=== PATIENT | female | born 1965 | race African-American/Black ===

== ENCOUNTER 2019-12-20 17:47 | Inpatient (IN) | payer MEDICARE, MEDICAID ==
[~2019-12-20] VITALS: Ht 162.6 cm; Wt 77.1 kg
[~2019-12-20 17:47] MED LIST: AMLODIPINE BESY10 MG ORAL; BENAZEPRIL HCL20 MG ORAL; COLACE100 MG ORAL; LATUDA80 MG PO
--- NOTE | 2019-12-20 17:50 | NUR ---
ED Nurse Note: Patient BIBA from [facility] for shortness of breath, fever of 101.3, cough. Patient AxO x 1, on non rebreather at 15 L, O2 sat 100%. Patient's breathing even and unlabored, no s/s of respiratory distress. Patient on rn cardiac, 22 g IV started in right AC. Blood, urine, swabs, covid swab, blood cultures sent to lab.
[2019-12-20 18:20] VITALS: BP 88/56
--- NOTE | 2019-12-20 18:58 | Diagnostic Imaging Report ---
EXAM: XR Chest, 1 View CLINICAL HISTORY: SOB TECHNIQUE: Frontal view of the chest. COMPARISON: None FINDINGS: Lungs: There are low lung volumes. There are patchy bilateral infiltrates. Pleural space: There are no pleural effusions or pneumothoraces. Heart: Unremarkable. No cardiomegaly. Mediastinum: Unremarkable. Bones/joints: Unremarkable. IMPRESSION: Low lung volumes. Patchy infiltrates, worrisome for atypical pneumonia.
[2019-12-20 19:01] LABS: APPEARANCE,URINE SLIGHTLY CLOUDY; BILIRUBIN, URINE NEGATIVE (NEGATIVE); GLUCOSE, URINE (UA) NEGATIVE (NEGATIVE); KETONES,URINE 2+ (NEGATIVE); LEUKOCYTE ESTERASE ,URINE 1+ (NEGATIVE); NITRITE,URINE NEGATIVE (NEGATIVE); PH,URINE 5 (4.5-8.0); PROTEIN,URINE 2+ (NEGATIVE); UROBILINOGEN,URINE 1 MG/DL (0.0-1.0)
[2019-12-20 19:05] VITALS: BP 99/63
[2019-12-20 19:05] LABS: COLOR,URINE YELLOW
--- NOTE | 2019-12-20 19:05 | NUR ---
ED Nurse Note: ermd notified of pt tachy hr 123.
--- NOTE | 2019-12-20 19:10 | NUR ---
HAND-OFF: Report given to Saman Jones RN.
[2019-12-20 19:12] LABS: HEMATOCRIT 30.8 % (37.0-47.0); HEMOGLOBIN 9.1 G/DL (12.0-16.0); MEAN CORPUSCULAR VOLUME 112 FL (80-99); PLATELET COUNT 143 K/UL (150-450); RED BLOOD COUNT 2.76 M/UL (4.20-5.40); RED CELL DISTRIBUTION WIDTH 15.3 % (11.6-14.8); WHITE BLOOD COUNT 9.9 K/UL (4.8-10.8)
[2019-12-20] MEDS ORDERED: cefTRIAXone 1 GM in NS 55 ML IVPB ONE (19:15)
--- NOTE | 2019-12-20 19:15 | NUR ---
ED Nurse Note: RECEIVED REPORT FROM KATTY CHRIS. PT ON MONITOR, VSS, NAD.
[2019-12-20 19:16] LABS: BASOPHILS % (AUTO) 1.2 % (0.0-2.0); LYMPHOCYTES % (AUTO) 15.1 % (20.0-45.0); MONOCYTES % (AUTO) 7.3 % (1.0-10.0); NEUTROPHILS % (AUTO) 76.4 % (45.0-75.0)
--- NOTE | 2019-12-20 19:36 | Emergency Room Report ---
History of Present Illness General Chief Complaint: Dyspnea/Respdistress Source: Patient Present Illness HPI Patient is a 54-year-old female sent in from nursing facility after increased fever and difficulty with breathing. Patient reportedly had negative coronavirus testing yesterday. She was noted to have increased shortness of breath and decreased oxygen saturation. Patient was sent to the hospital from [facility]. She was noted to have fever up to 101 degrees as well as decreased oxygen saturation was started on nonrebreather by paramedics. Allergies: Coded Allergies: IBUPROFEN (Verified Allergy, Unknown, 12/20/19) COVID-19 Screening Contact w/high risk pt: No Recent Travel to affected area: No Experienced COVID-19 symptoms?: Yes COVID-19 symptoms experienced: Fever (T>100.4F or >38C), Shortness of Breath, Cough COVID-19 Testing performed MANAGER MARKET RESEARCH: Yes - 12/19/19 COVID-19 Screening: Negative COVID-19 COVID-19 Testing Source: AUTO BENCH MECHANIC Patient History Past Medical History: see triage record Last Menstrual Period: na Reviewed Nursing Documentation: PMH: Agreed; PSxH: Agreed Nursing Documentation-PMH Past Medical History: No History, Except For Hx Hypertension: Yes Hx Asthma: Yes Review of Systems All Other Systems: limited - Limited by poor historian Physical Exam Vital Signs Date Time Temp Pulse Resp B/P (MAP) Pulse Ox O2 Delivery O2 Flow Rate FiO2 12/20/19 17:41 101.3 102 16 188/117 (140) 98 Non-Rebreather 15.0 General Appearance: alert, Chronically Ill ENT: hearing grossly normal Neck: limited range of motion Respiratory: lungs clear Cardiovascular #1: tachycardia, edema Gastrointestinal: hernia, other - Nontender abdomen Musculoskeletal: other - Right lower extremity externally rotated Neurologic: alert, oriented x3, motor weakness - Diffuse Psychiatric: normal inspection Skin: no rash Procedures Critical Care Time Critical Care Time Patient had a critical medical condition which untreated could potentially result in life or limb threatening injury. Total critical care time excluding procedures approximately 45 minutes. Medical Decision Making Diagnostic Impression: Primary Impression: Acute febrile illness Additional Impressions: Suspected 2019-nCoV infection Atypical pneumonia Hypernatremia Hypoglycemia ER Course Patient presented for fever and shortness of breath. Differential diagnosis include was not limited to pneumonia, coronavirus infection, gastroenteritis, urinary tract infection among others. Because of complexity of patient's case laboratory tests and imaging studies were ordered. Patient was noted to be chronically bedridden. She appears to be diffusely weak with fever. Chest x- ray read by radiology showed low lung volumes with patchy infiltrates worrisome for atypical pneumonia. Coronavirus testing was repeated blood cultures were obtained. Patient was given IV antibiotics due to acute febrile illness and she started on IV fluids. Laboratory testing showed some anemia as well as lymphopenia. Patient will be admitted due to pneumonia presumably from coronavirus. Arterial blood gas showed adequate pH and oxygenation. Patient was initially on nonrebreather and patient subsequently had a decrease in oxygen to simple mask. Patient was noted to have some hypoglycemia and was given D50 and started on IV dextrose. Chest x-ray findings were concerning for possible coronavirus and patient was started on IV Decadron which would also help with hypoglycemic episode. She was noted to be hypoalbuminemic and was given IV albumin. Patient empirically given IV antibiotics. Patient was noted to have normal blood pressure and normal lactic acid level. Patient's primary care physician Dr. Cummings was contacted and requested the patient be admitted to Dr. Potter. Dr. Ricky Potter was contacted for inpatient management and agreed to admit the patient to SDU. Labs Test 12/20/19 18:16 12/20/19 18:40 12/20/19 19:00 Arterial Blood pH 7.399 (7.350-7.450) Arterial Blood Partial Pressure CO2 51.7 mmHg (35.0-45.0) Arterial Blood Partial Pressure O2 205.7 mmHg (75.0-100.0) Arterial Blood HCO3 31.2 mmol/L (22.0-26.0) Arterial Blood Oxygen Saturation 98.8 % (95-100) Arterial Blood Base Excess 5.7 (-2-2) Darío Test Positive Urine Color Yellow Urine Appearance Slightly cloudy Urine pH 5 (4.5-8.0) Urine Specific Keller 1.025 (1.005-1.035) Urine Protein 2+ (NEGATIVE) Urine Glucose (UA) Negative (NEGATIVE) Urine Ketones 2+ (NEGATIVE) Urine Blood Negative (NEGATIVE) Urine Nitrite Negative (NEGATIVE) Urine Bilirubin Negative (NEGATIVE) Urine Urobilinogen 1 MG/DL (0.0-1.0) Urine Leukocyte Esterase 1+ (NEGATIVE) Urine RBC 0-2 /HPF (0 - 2) Urine WBC 2-4 /HPF (0 - 2) Urine Squamous Epithelial Cells Few /LPF (NONE/OCC) Urine Bacteria Few /HPF (NONE) Urine Mucus Many /LPF (NONE/OCC) White Blood Count 9.9 K/UL (4.8-10.8) Red Blood Count 2.76 M/UL (4.20-5.40) Hemoglobin 9.1 G/DL (12.0-16.0) Hematocrit 30.8 % (37.0-47.0) Mean Corpuscular Volume 112 FL (80-99) Mean Corpuscular Hemoglobin 33.2 PG (27.0-31.0) Mean Corpuscular Hemoglobin Concent 29.7 G/DL (32.0-36.0) Red Cell Distribution Width 15.3 % (11.6-14.8) Platelet Count 143 K/UL (150-450) Mean Platelet Volume 5.4 FL (6.5-10.1) Neutrophils (%) (Auto) 76.4 % (45.0-75.0) Lymphocytes (%) (Auto) 15.1 % (20.0-45.0) Monocytes (%) (Auto) 7.3 % (1.0-10.0) Eosinophils (%) (Auto) 0.0 % (0.0-3.0) Basophils (%) (Auto) 1.2 % (0.0-2.0) Lactic Acid Level 1.60 mmol/L (0.4-2.0) Troponin I 0.017 ng/mL (0.000-0.056) EKG Diagnostic Results Rate: tachycardiac Rhythm: NSR ST Segments: no acute changes Last Vital Signs Date Time Temp Pulse Resp B/P (MAP) Pulse Ox O2 Delivery O2 Flow Rate FiO2 12/20/19 18:20 101.3 105 16 88/56 100 Non-Rebreather 15.0 Status: unchanged Disposition: ADMITTED INPATIENT Condition: Serious Referrals: NON PHYSICIAN (PCP) Luis Fernando Zarate MD Dec 20, 2019 19:36
[2019-12-20 19:42] LABS: ALANINE AMINOTRANSFERASE 22 U/L (12-78); ALBUMIN 1.1 G/DL (3.4-5.0); ALBUMIN/GLOBULIN RATIO 0.2 (1.0-2.7); ALKALINE PHOSPHATASE 129 U/L (46-116); ANION GAP 4 mmol/L (5-15); ASPARTATE AMINO TRANSFERASE 46 U/L (15-37); BILIRUBIN,TOTAL 0.3 MG/DL (0.2-1.0); BLOOD UREA NITROGEN 22 mg/dL (7-18); CALCIUM 7.1 MG/DL (8.5-10.1); CARBON DIOXIDE 35 MMOL/L (21-32); CHLORIDE 130 MMOL/L (98-107); CKMB < 0.5 NG/ML (0.0-3.6); CREATINE KINASE 54 U/L (26-308); CREATININE 1.9 MG/DL (0.55-1.30); POTASSIUM 4.3 MMOL/L (3.5-5.1)
[2019-12-20 19:46] LABS: SODIUM 169 MMOL/L (136-145)
[2019-12-20] MEDS ORDERED: D5 1/2NS 1,000 ML IV SCH (20:00)
--- NOTE | 2019-12-20 20:10 | NUR ---
ED Nurse Note: PT BS 28 AT BEDSIDE. ERMD NOTIFIED. WILL CARRY OUT ORDER.
--- NOTE | 2019-12-20 20:20 | NUR ---
ED Nurse Note: PT BS 78. ERMD AWARE.
--- NOTE | 2019-12-20 20:22 | NUR ---
Nurse Note: Per ER MD, D50 ordered and pulled. D50 was dropped and another D50 overroad in the pxysis. Vickie pharmist informed.
[2019-12-20] MEDS ORDERED: dexAMETHasone 10mg/ml Inj IV ONE (20:30)
--- NOTE | 2019-12-20 21:35 | NUR ---
ED Nurse Note: REPORT GIVEN TO REGLA CHRIS
[2019-12-20 21:40] VITALS: BP 101/67
[2019-12-20] MEDS ORDERED: BENZTROPINE MESY1 MG ORAL (21:40)
[2019-12-20] MEDS ORDERED: HALOPERIDOL0.5 MG ORAL (21:40)
[2019-12-20] MEDS ORDERED: FERROUS SULFAT325 MG ORAL (21:40)
[2019-12-20] MEDS ORDERED: DEPAKOTE ER500 MG ORAL (21:40)
--- NOTE | 2019-12-20 21:40 | NUR ---
ED Nurse Note: PT SATTING AT 99% ON 4L NC. CARYN LIGHT. CHARANJIT AWARE.
--- NOTE | 2019-12-20 21:50 | NUR ---
TRANSFER TO FLOOR: Patient transferred to [facility] via [facility] in stable condition via transport 19 protocol as ordered, per dr. Potter . Report given to REGLA CHRIS.
--- NOTE | 2019-12-20 22:00 | NUR ---
NURSE NOTES: Received report from DOT [place]ña ED. Pt alert oriented x 1-2,afebrile and no respiratory distress noted. LN introduced self and pt able to respond back with name, unable to state where she's at right now but able to follow commands without any discomforts or problem. On NC at 4lpm continuously, tolerating well. With Right AC 18g IV line patent, flushed and asymptomatic. body assessment done and skin changes noted and documented per protocol. Needs were attended. HOB elevated. Call light within reach. Bed rails are up and wheels are locked. Continue plan of care for the patient
--- NOTE | 2019-12-20 23:00 | NUR ---
NURSE NOTES: 2229: left a message to Leighton ( gristmill operator) of Dr Potter's office to call us back for admission orders of patient. Awaiting for response 2299: Place a call to Dr Potter's office to follow up and left a message to Leighton ( gristmill operator) of Dr Potter's office to call us back in SDU for admission orders of patient. Awaiting for response
[2019-12-21] VITALS: BP 94/66
--- NOTE | 2019-12-21 00:39 | NUR ---
NURSE NOTES: 0028:Placed a call to Dr Potter's office to FF up admission orders. No response yet. 0030: Spoke to Nursing Ict Educator and made aware that Dr Potter hasn't responded yet. Nursing grinding supervisor advised to call ER Charge nurse and ask for bridge orders from ER physician 0035: Called ER. Awaiting for a callback
[2019-12-21] MEDS ORDERED: D5 1/2NS w/KCl 20mEq 1,000 ML IV SCH (00:45)
[2019-12-21 04:00] VITALS: BP 108/58
--- NOTE | 2019-12-21 06:00 | NUR ---
NURSE NOTES: Pt verbalized " don't touch me" provided personal space to patient while maintaining safety environment
--- NOTE | 2019-12-21 06:00 | NUR ---
NURSE NOTES: Patient was assisted to wash face and do oral hygiene per request. Pt verbalized doesn't want to lay down in bed and wants to sit on the side of the bed. Pt is 1 person assist for ambulation. Noted unsteady gait when trying to use the sink. Explained to patient the risk of fall and out of balance tendencies if left alone. Also explained that breakfast will be served and will be assisted even she's on the bed. Patient refused x 3. Patient pulled out property assessment monitor leads and she refused to put it back on even after explaining the benefits and risks. Patient was also observed trying to pull IV line. Explained to patient the risk of bleeding and infection. Patient became agitated and tried to hit staffs, Provided personal space to patient while observing and doing safety measures. LN and GEOLOGY PROFESSOR tried to calm her down and was asked if there are other things we can do for her. GEOLOGY PROFESSOR stayed with patient to provide safety and relief of agitation. MD was made aware of the situation and behavior of the patient. Awaiting response.
[2019-12-21 06:26] LABS: ALANINE AMINOTRANSFERASE 20 U/L (12-78); ALBUMIN/GLOBULIN RATIO 0.2 (1.0-2.7); ALKALINE PHOSPHATASE 115 U/L (46-116); ANION GAP 4 mmol/L (5-15); ASPARTATE AMINO TRANSFERASE 45 U/L (15-37); BILIRUBIN,TOTAL 0.2 MG/DL (0.2-1.0); BLOOD UREA NITROGEN 22 mg/dL (7-18); CALCIUM 6.9 MG/DL (8.5-10.1); CARBON DIOXIDE 33 MMOL/L (21-32); CHLORIDE 130 MMOL/L (98-107); CHOLESTEROL < 50 MG/DL (< 200); CREATININE 1.9 MG/DL (0.55-1.30); FERRITIN 511 NG/ML (8-388); GAMMA GLUTAMYL TRANSPEPTIDASE 143 U/L (5-85); HDL CHOLESTEROL 13 MG/DL (40-60); POTASSIUM 4.3 MMOL/L (3.5-5.1); TRIGLYCERIDES 78 MG/DL (30-150)
[2019-12-21 06:37] LABS: SODIUM 167 MMOL/L (136-145)
[2019-12-21 06:56] LABS: % IRON SATURATION 64 % (15-50); IRON 23 ug/dL (50-175); TOTAL IRON BINDING CAPACITY 36 ug/dL (250-450)
--- NOTE | 2019-12-21 07:10 | NUR ---
HAND-OFF: Report given to Jeffery Denis RN. Patient stable sitting on the bed having breakfast without any discomforts.
[2019-12-21] MEDS ORDERED: LORazepam 1mg tab ORAL PRN (07:15)
--- NOTE | 2019-12-21 07:30 | NUR ---
NURSE NOTES: Received report from DOT [place]. Patient noted on wheelchair, refusing to go back to bed at this. Per night nurse patient walked out of room and refused to go back to room, attempted to punch nurse. Patient is noted PUI, explained to patient importance of strict room isolation, patient noted alert and oriented x 2 with moments of confusion and forgetfulness. Patient unable to grasp importance of isolation at this time but agreed to go back to room and lay in bed. Informed patient to use call light if assistance needed, patient nodded head. Noted. Per night nurse, patient also refuses to put back heart monitor on. Patient educated on importance of heart monitor on unit, patient continued to refuse, respected patient rights. Kept heart monitor in room in event patient changes mind. Informed panel monitor of refusal, charge nurse aware of patient refusal for heart monitor. Noted. Patient noted with leaking right AC peripheral IV, patient refuses to have IV removed at this time. Noted. Placed bed alarm on med. Call light is kept within easy reach. Continue to monitor patient.
[2019-12-21 07:57] LABS: HEMATOCRIT 31.7 % (37.0-47.0); HEMOGLOBIN 9.4 G/DL (12.0-16.0); MEAN CORPUSCULAR VOLUME 113 FL (80-99); PLATELET COUNT 146 K/UL (150-450); RED BLOOD COUNT 2.81 M/UL (4.20-5.40); RED CELL DISTRIBUTION WIDTH 14.4 % (11.6-14.8); WHITE BLOOD COUNT 9.7 K/UL (4.8-10.8)
[2019-12-21 08:00] VITALS: BP 95/63
[2019-12-21] MEDS: Haloperidol 1mg tab ORAL SCH ×3 (08:04→17:24)
[2019-12-21] MEDS: Benztropine 1mg tab ORAL SCH ×2 (08:17→17:23)
[2019-12-21] MEDS: Depakote ER 500mg tab ORAL SCH (08:18)
[2019-12-21] MEDS: Heparin 5000 units/ml inj SUBQ SCH ×2 (09:00→21:00)
[2019-12-21] MEDS ORDERED: Benazepril 10mg tab ORAL SCH (09:00)
[2019-12-21] MEDS ORDERED: Docusate 100mg cap ORAL SCH (09:00)
--- NOTE | 2019-12-21 09:40 | NUR ---
NURSE NOTES: Dr. Potter at nurse station. Made Dr. Potter aware patient is refusing heart monitor. Dr. Potter acknowledged, no new orders given at this time. Charge nurse made aware. Will continue to monitor patient.
--- NOTE | 2019-12-21 10:05 | NUR ---
NURSE NOTES: Dr. Pichardo at nurse station, reported sodium level of 167, patient refused IV fluids. Acknowledged, spoke with patient, patient rambled. Noted. Informed Dr. Pichardo patient blood pressure this morning was 95/64 HR 105, pt noted with blood pressure medications, no parameters, blood pressure medications held in the morning. Dr. Pichardo acknowledged and informed this nurse they will take care of it. Noted. Will continue to monitor patient.
--- NOTE | 2019-12-21 10:26 | Consultation ---
Consult Note Consult Note I am asked to evaluate the patient at the request of Dr. Ricky Potter for abnormal electrolytes and renal failure. Patient evaluated. Discussed with DOT Gil. Data reviewed. Patient poor historian. ER note: Chief Complaint: Dyspnea/Respdistress Patient is a 54-year-old female sent in from nursing facility after increased fever and difficulty with breathing. Patient reportedly had negative coronavirus testing yesterday. She was noted to have increased shortness of breath and decreased oxygen saturation. Patient was sent to the hospital from . She was noted to have fever up to 101 degrees as well as decreased oxygen saturation was started on nonrebreather by paramedics. 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 - 12/19/19 COVID-19 Screening: Negative COVID-19 COVID-19 Testing Source: AQUATIC ECOLOGIST Past Medical History: No History, Except For Hx Hypertension: Yes Hx Asthma: Yes Vital Signs Date Time Temp Pulse Resp B/P (MAP) Pulse Ox O2 Delivery O2 Flow Rate FiO2 12/20/19 17:41 101.3 102 16 188/117 (140) 98 Non-Rebreather 15.0 General Appearance: alert, Chronically Ill ENT: hearing grossly normal Neck: limited range of motion Respiratory: lungs clear Cardiovascular #1: tachycardia, edema Gastrointestinal: hernia, other - Nontender abdomen Musculoskeletal: other - Right lower extremity externally rotated Neurologic: alert, oriented x3, motor weakness - Diffuse Psychiatric: normal inspection Skin: no rash . Assessment/Plan Renal failure, most likely chronic, with superimposed acute renal failure. Acute febrile illness, suspected COVID-19 infection. Hypernatremia, likely due to free water deficit. Hypoglycemia Severe hypoalbuminemia Atypical pneumonia Anemia History of psych disease Stop blood pressure medication due to low blood pressure PRN IV hydralazine for blood pressure spike D5W IV hydration Protonix p.o. Albumin IV bolus Monitor renal parameters Continue per consultants Saha catheter, urine studies Brian Pichardo MD Dec 21, 2019 10:26
--- NOTE | 2019-12-21 10:35 | NUR ---
NURSE NOTES: Called Dr. Burgos regarding new psyche consult per Dr. Potter. Dr. Burgos acknowledged and informed this nurse they will come in and see patient. No new orders given at this time. Will continue to monitor patient.
--- NOTE | 2019-12-21 11:14 | History and Physical Report ---
DATE OF ADMISSION: 12/20/2019 DATE AND TIME SEEN: 12/21/2019 at 8 a.m. CONSULTANTS: 1. Hector Hobson MD. 2. Penny Montague MD. 3. Brian Pichardo MD. 4. Flip Burgos MD. CHIEF COMPLAINT: Hypoglycemia, bipolar, suspect COVID. BRIEF HISTORY: This is a 54-year-[place], presented with above-mentioned diagnosis, seen in the ER, admitted to step-down unit. Currently, slightly confused in bed, refusing to answer questions, in room, no complaint. REVIEW OF SYSTEMS: Unavailable. PAST MEDICAL HISTORY: Include acute renal failure, weakness, bipolar, IN, hypertension. PAST SURGICAL HISTORY: Unknown. MEDICATIONS: Include ceftriaxone, amlodipine, benztropine, ferrous sulfate, heparin, Haldol, benazepril. ALLERGIES: Ibuprofen. SOCIAL HISTORY: Unable to obtain secondary to the patient's condition. PHYSICAL EXAMINATION: GENERAL: Slightly confused in bed, refusing exam. VITAL SIGNS: Temperature is 97, pulse 106, respirations 20, blood pressure 108/58. GENERAL: Calm, slightly confused. HEENT: Normocephalic and atraumatic. NECK: Trachea midline. CARDIOVASCULAR: No peripheral edema. LUNGS: Slight short of breath on room air. ABDOMEN: No apparent wounds. EXTREMITIES: Show no cyanosis or clubbing. LABORATORY AND DIAGNOSTIC DATA: Labs at this time show hemoglobin and hematocrit 9.4/31, platelets 146,000, otherwise normal. BMP shows sodium 167, chloride 130, BUN and creatinine 22 and 1.9. Albumin 1.0. Urinalysis, 1+ leukocyte esterase. ASSESSMENT: 1. Hypoglycemia. 2. Suspect COVID. 3. UTI. 4. Malnutrition. 5. Bipolar. 6. CAD. 7. Hypernatremia. 8. Acute renal failure. 9. IN. 10. Hypertension. PLAN: O2, pulmonary treatment as needed. Antibiotics per Infectious Disease. Blood pressure and blood sugar control. Dietary followup. Nephrology followup. We will add Hematology. We will continue to follow this patient medically. CBC and BMP in the morning. PT and dietary evaluation. Ricky Potter D.O. DR: ISAIAH JOB#: [id number] CC:
--- NOTE | 2019-12-21 11:34 | NUR ---
CASE MANAGEMENT: INITIAL REVIEW 54 YO F BIBA FROM [facility] CC: DYSPNEA PMHx: HTN . ASTHMA SI:SUSPECTED OF COVID PNA. HERNIA. T 101.3 JR 102 RR 16 B/P 188/117 SATS 98% ON 15L/NRB LABS: NA 169 CL 130 CO2 35 BUN 22 CR 1.9 GLU 50 CA 7.1 AST 46 ALP 129 ABGs PCO2 51.7 PO2 205.7 HCO3 31.2 BE 5.7 IS: NS BOLUS X1 CEFTRIAXONE IV X1 FLAGYL IV X1 PATIENT ADMITTED TO SDU 12/20/2019 @ [id number] DCP: SNF PLAN OF CARE: Albumin IV bolus Monitor renal parameters O2, pulmonary treatment as needed
[2019-12-21 12:00] VITALS: BP 96/58
--- NOTE | 2019-12-21 12:01 | NUR ---
NURSE NOTES: Spoke with patient at bedside. Explained to patient need to insert valadez catheter for intake and output per Dr. Pichardo. Patient refuses valadez catheter insertion. Explained to patient risks and negative outcome of not having valadez catheter inserted, patient continued to refuse, and stated "Don't come close to me." Respected patient rights. Called and informed Dr. Pichardo of patient refusal of valadez catheter insertion and situation and unable to obtain urine sample as well. Dr. Pichardo acknowledged, no new orders given at this time. Charge nurse made aware. Will continue to monitor patient.
[2019-12-21] MEDS: Docusate 100mg cap ORAL SCH ×2 (12:34→17:24)
--- NOTE | 2019-12-21 12:52 | NUR ---
NURSE NOTES: Patient refused use of purwick to obtain urine sample. Noted. Will continue to monitor patient.
--- NOTE | 2019-12-21 13:14 | Consultation ---
DATE OF CONSULTATION: 12/21/2019 PULMONARY CONSULTATION CONSULTING PHYSICIAN: Hector Hobson MD. HISTORY OF PRESENT ILLNESS: This is a 54-year-old female, looking much older than stated age, was admitted from a [facility] after reporting shortness of breath. The patient was hypoxic. She is a resident of [facility]. She was also febrile. The patient is admitted to the hospital. Currently saturating well on nasal cannula 4 L. Her initial x-ray chest has shown bibasilar patchy infiltrates, suspicious for pneumonic process. PAST MEDICAL HISTORY: Notable for renal insufficiency, hypertension, asthma, [facility] resident. HOME MEDICATIONS: Reviewed and reconciled in chart include benztropine, Depakote, Colace, Haldol, hydralazine, Protonix. REVIEW OF SYSTEMS: Unreliable. PHYSICAL EXAMINATION: GENERAL: Reveals an older looking patient. VITAL SIGNS: Blood pressure is 95/60, heart rate 100, respirations are 18, O2 saturation 98% on 4 L of oxygen. CHEST: Decreased breath sounds bilaterally. HEART: Normal heart sounds. ABDOMEN: Soft. EXTREMITIES: There is no edema. LABORATORY DATA: Lab testing shows hemoglobin 9.4, otherwise normal CBC, platelet count is borderline low. Chemistries notable for sodium 167, creatinine 1.9. LDH 311. Troponin negative. Glucose 132. ABG shows pH 7.39, pCO2 51, pO2 200. Urinalysis negative. X-ray chest discussed above. IMPRESSION: 1. Probable COVID-19 pneumonia. 2. Hypernatremia. 3. Psych disorder. 4. longterm resident. DISCUSSION: Admit to the hospital. Agree with current medications and care. The patient has received Decadron x1. We will defer further use to ID. Continue medications. Await COVID-19 testing. We will follow as layout former. Hector Hobson M.D. DR: SAMINA JOB#: [id number] CC:
--- NOTE | 2019-12-21 14:18 | NUR ---
NURSE NOTES: Called and left message with Dr. Burgos, , to follow up regarding Lurasidone 80 mg PO BID. Pharmacy does not carry medication, called to clarify regarding substitution for Lurasidone. Awaiting call back. Will continue to monitor patient.
--- NOTE | 2019-12-21 14:29 | NUR ---
NURSE NOTES: Michele noted as substitution for Lurasidone. Per pharmacist spoke with Dr. Burgos. Noted.
--- NOTE | 2019-12-21 14:58 | NUR ---
NURSE NOTES: Dr. Burgos at nurse station. Dr. Burgos informed this nurse to transfer patient to [facility] psyche facility once medically cleared under Dr. Potter and Dr. Burgos. Contacted and informed Dr. Potter regarding instructions of Dr. Burgos. Dr. Potter acknowledged and ordered case management consult to transfer patient to [facility] psyche facility once medically cleared. Charge nurse made aware. Will continue to monitor patient.
--- NOTE | 2019-12-21 15:00 | NUR ---
NURSE NOTES: Dr. Burgos at nurse station, informed MD that ordered Haldol PO has been held due to low blood pressure, 95/63. Dr. Burgos acknowledged. No new orders at this time. Will continue to monitor patient.
--- NOTE | 2019-12-21 15:00 | NUR ---
NURSE NOTES: Again, explained to patient need for heart monitor to be placed on while on SDU unit. Patient refused x 3. Explained to patient risks and negative outcomes of not having heart monitor on, patient continued to refuse. Respected patient rights. Heart monitor kept in room in case patient changes mind. Charge nurse aware. Will continue to monitor patient.
--- NOTE | 2019-12-21 15:28 | NUR ---
DISCHARGE PLANNING: NOTE PSYCH TRANSFER ORDER NOTED PT REMAINS ON 4L/NC PENDING MEDICAL CLEARANCE CLINICALS FAXED TO [facility] FOR REVIEW CM TO CONTINUE TO MONITOR FOR MEDICAL STABILITY
[2019-12-21 16:00] VITALS: BP 100/50
--- NOTE | 2019-12-21 16:30 | NUR ---
NURSE NOTES: Patient refused Accuchek. Explained to patient risks and possible negative outcomes of not having Accuchek done, patient continued to refuse. Respected patient rights. Will continue to monitor patient.
[2019-12-21] MEDS ORDERED: cefTRIAXone 1 GM in D5W 55 ML IVPB SCH (19:00)
--- NOTE | 2019-12-21 19:00 | NUR ---
NURSE NOTES: Received report from Jeffery Denis RN. Pt asleep in bed, febrile and no respiratory distress noted.On RA saturating at 97-98%. With Right AC 18g and Left hand 24G IV lines patent, flushed and asymptomatic. Needs were attended. HOB elevated. Call light within reach. Bed rails are up and wheels are locked. Continue plan of care for the patient
--- NOTE | 2019-12-21 19:20 | NUR ---
HAND-OFF: Report given to DOT Doug[place].
[2019-12-21 20:00] VITALS: BP 119/64
[2019-12-21] MEDS: Ziprasidone 20mg cap ORAL SCH (21:33)
[2019-12-22] VITALS: BP 108/61
--- NOTE | 2019-12-22 02:30 | NUR ---
NURSE NOTES: Patient asleep in bed, afebrile and has no respiratory distress. Continue to monitor patient
[2019-12-22 04:00] VITALS: BP 133/72
--- NOTE | 2019-12-22 04:30 | NUR ---
NURSE NOTES: Patient refused blood draw. explained benefits x 3. patient still refuse. Film Reader will try again later
[2019-12-22] MEDS: LORazepam 1mg tab ORAL PRN ×2 (04:42→23:00)
--- NOTE | 2019-12-22 05:00 | NUR ---
NURSE NOTES: Patient was assisted to change gown/ bed sheet however patient refused to be touched. Explained that gown has old food particles on it. Patient still refused. Respect patient's rights. Offered drinks and apple sauce. Patient took them. Asked patient if needs anything else. patient nod. left call light within reach. Bed rails are up. Continue to monitor patient.
--- NOTE | 2019-12-22 06:00 | NUR ---
NURSE NOTES: Dr Fuller ( works with Dr Burgos- Psychiatrist) at bedside. Pt refused to have conversation. Respect patient's rights.
--- NOTE | 2019-12-22 07:20 | NUR ---
NURSE NOTES: Received report from DOT ARAUZ. The patient is resting on the bed but combative, confused, and tries to get out from the bed. The patient is verbal and able to make needs known but confused. ST of 100s on the monitor. The patient is on room air and oxygen saturation is 97%. The patient has L hand 24G but infiltrated. Inserted new IV on L wrist 22G that is intact and patent and running D5W @75mL/hr per order. The patient has order for Saha but not inserted during shift report. Saha inserted after shift change report per order. The patient's bed in the lowest position, call light in reach, and fall and aspiration precaution reinforced. IV site intact and patent. Will follow up the order and lab. Will closely monitor the patient. Will continue plan of care.
--- NOTE | 2019-12-22 07:20 | NUR ---
HAND-OFF: Report given to DOT Leary.
--- NOTE | 2019-12-22 07:30 | NUR ---
NURSE NOTES: Paged Dr. Montague regarding positive blood culture for gram negative rods. Will closely monitor the patient. Will continue plan of care.
[2019-12-22 08:00] VITALS: BP 114/63
--- NOTE | 2019-12-22 08:00 | NUR ---
NURSE NOTES: Low BP noted and notified to Dr. Potter and Dr. Mera for further order. Will recheck the blood pressure and will carry out the order as soon as receives it. Will continue plan of care. Addendum: 12/22/19 at 1257 by Curt Brantley RN BS of 180 noted. Will closely monitor the patient. Will continue plan of care.
--- NOTE | 2019-12-22 08:30 | NUR ---
NURSE NOTES: Dr. Potter ordered NS 500mL bolus for hypotension. Will closely monitor the patient. Will continue plan of care.
[2019-12-22] MEDS ORDERED: Tubing IV Secondary IV ONE (08:33)
--- NOTE | 2019-12-22 08:45 | General Progress Note ---
Assessment/Plan Problem List: (1) UTI (urinary tract infection) ICD Codes: N39.0 - Urinary tract infection, site not specified SNOMED: 52914803 (2) Malnutrition ICD Codes: E46 - Unspecified protein-calorie malnutrition SNOMED: 74244362 (3) Renal failure ICD Codes: N19 - Unspecified kidney failure SNOMED: 54173010 (4) HTN (hypertension) ICD Codes: I10 - Essential (primary) hypertension SNOMED: 41363303 (5) Hypoglycemia ICD Codes: E16.2 - Hypoglycemia, unspecified SNOMED: 289420311 (6) Hypernatremia ICD Codes: E87.0 - Hyperosmolality and hypernatremia SNOMED: 302622154 (7) Suspected 2019-nCoV infection ICD Codes: Z20.828 - Contact with and (suspected) exposure to other viral communicable diseases SNOMED: 938930691 Status: unchanged Assessment/Plan: o2 pulm tx abx pt diet cbc bmp am Subjective Constitutional: Reports: weakness Allergies: Coded Allergies: IBUPROFEN (Verified Allergy, Unknown, 12/20/19) All Systems: reviewed and negative except above Subjective o2nc calm in bed Objective Last 24 Hour Vital Signs Date Time Temp Pulse Resp B/P (MAP) Pulse Ox O2 Delivery O2 Flow Rate FiO2 12/22/19 04:00 96.6 83 20 133/72 (92) 97 12/22/19 04:00 Room Air 12/22/19 00:00 98.4 92 20 108/61 (77) 97 12/22/19 00:00 Room Air 12/21/19 20:00 Room Air 12/21/19 20:00 97.2 81 20 119/64 (82) 97 12/21/19 16:00 96.6 98 20 100/50 (67) 97 12/21/19 16:00 Room Air 12/21/19 12:00 Nasal Cannula 4.0 12/21/19 12:00 4.0 12/21/19 12:00 97.0 99 20 96/58 (71) 100 Intake and Output 12/21/19 12/22/19 19:00 07:00 Intake Total 1025 ml 868 ml Balance 1025 ml 868 ml Intake Oral 500 ml IV Total 525 ml 868 ml # Voids 1 1 # Bowel Movements 1 Height (Feet): 5 Height (Inches): 4.00 Weight (Pounds): 154 General Appearance: lethargic EENT: normal ENT inspection Neck: normal alignment Cardiovascular: normal rate, regular rhythm Respiratory/Chest: no respiratory distress, no accessory muscle use Extremities: normal inspection Skin: normal pigmentation Ricky Potter DO Dec 22, 2019 08:45
--- NOTE | 2019-12-22 08:46 | NUR ---
RD ASSESSMENT & RECOMMENDATIONS SEE CARE ACTIVITY FOR COMPLETE ASSESSMENT DAILY ESTIMATED NEEDS: Needs based on cardiac 58.4kg abw 25-30 kcals/kg 1352-5365 total kcals 1.0-1.5 g protein/kg 58-88 g total protein 25-30 mL/kg 4383-3753 total fluid mLs NUTRITION DIAGNOSIS: Altered nutrition related lab values r/t clinical status, as evidenced by critically elev Na on adm (167*), elev BUN and creat (22, 1.9 respectively), elev BNP (1113). CURRENT DIET: IRVING ms finely chopped PO DIET RECOMMENDATIONS: Maintain IRVING diet, texture as tolerated or per PROJECT SAFETY MANAGER ADDITIONAL RECOMMENDATIONS: 1) Obtain an accurate standing weight as able 2) Rec WC eval for assessment of sacral photo 3) Updated labs as able
[2019-12-22] MEDS: Haloperidol 1mg tab ORAL SCH ×3 (09:00→18:00)
[2019-12-22] MEDS: Heparin 5000 units/ml inj SUBQ SCH ×2 (09:00→21:00)
[2019-12-22 09:06] LABS: HEMATOCRIT 31.8 % (37.0-47.0); HEMOGLOBIN 9.3 G/DL (12.0-16.0); MEAN CORPUSCULAR VOLUME 113 FL (80-99); PLATELET COUNT 106 K/UL (150-450); RED CELL DISTRIBUTION WIDTH 14.9 % (11.6-14.8); WHITE BLOOD COUNT 10.7 K/UL (4.8-10.8)
[2019-12-22] MEDS: Benztropine 1mg tab ORAL SCH ×2 (09:33→18:00)
[2019-12-22] MEDS: Docusate 100mg cap ORAL SCH ×3 (09:34→18:00)
[2019-12-22] MEDS: Depakote ER 500mg tab ORAL SCH (09:34)
[2019-12-22] MEDS: Ziprasidone 20mg cap ORAL SCH ×2 (09:35→21:29)
[2019-12-22 09:39] LABS: ALANINE AMINOTRANSFERASE 13 U/L (12-78); ALBUMIN 1.2 G/DL (3.4-5.0); ALBUMIN/GLOBULIN RATIO 0.3 (1.0-2.7); ALKALINE PHOSPHATASE 109 U/L (46-116); ANION GAP 7 mmol/L (5-15); ASPARTATE AMINO TRANSFERASE 33 U/L (15-37); BILIRUBIN,TOTAL 0.2 MG/DL (0.2-1.0); BLOOD UREA NITROGEN 20 mg/dL (7-18); CALCIUM 6.3 MG/DL (8.5-10.1); CARBON DIOXIDE 27 MMOL/L (21-32); CHLORIDE 119 MMOL/L (98-107); CREATININE 1.5 MG/DL (0.55-1.30); PHOSPHORUS 2.2 MG/DL (2.5-4.9); POTASSIUM 4.2 MMOL/L (3.5-5.1); SODIUM 153 MMOL/L (136-145)
--- NOTE | 2019-12-22 10:00 | NUR ---
NURSE NOTES: Morning medications administered per order. Will closely monitor the patient. Will continue plan of care.
--- NOTE | 2019-12-22 10:05 | Pulmonology Progress Note ---
Subjective Interval Events: None new Constitutional: Reports: no symptoms HEENT: Repors: no symptoms Respiratory: Reports: no symptoms Cardiovascular: Reports: no symptoms Gastrointestinal/Abdominal: Reports: no symptoms Genitourinary: Reports: no symptoms Allergies: Coded Allergies: IBUPROFEN (Verified Allergy, Unknown, 12/20/19) All Systems: reviewed and negative except above Objective Last 24 Hour Vital Signs Date Time Temp Pulse Resp B/P (MAP) Pulse Ox O2 Delivery O2 Flow Rate FiO2 12/22/19 08:00 104 12/22/19 04:00 96.6 83 20 133/72 (92) 97 12/22/19 04:00 Room Air 12/22/19 00:00 98.4 92 20 108/61 (77) 97 12/22/19 00:00 Room Air 12/21/19 20:00 Room Air 12/21/19 20:00 97.2 81 20 119/64 (82) 97 12/21/19 16:00 96.6 98 20 100/50 (67) 97 12/21/19 16:00 Room Air 12/21/19 12:00 Nasal Cannula 4.0 12/21/19 12:00 4.0 12/21/19 12:00 97.0 99 20 96/58 (71) 100 Intake and Output 12/21/19 12/22/19 19:00 07:00 Intake Total 1025 ml 868 ml Balance 1025 ml 868 ml Intake Oral 500 ml IV Total 525 ml 868 ml # Voids 1 1 # Bowel Movements 1 General Appearance: no acute distress HEENT: normocephalic Respiratory: chest wall non-tender Cardiovascular: normal peripheral pulses, normal rate Abdomen: normal bowel sounds Extremities: no cyanosis Microbiology Date/Time Source Procedure Growth Status 12/20/19 18:55 Blood Blood Culture - Preliminary Resulted 12/20/19 18:40 Blood Blood Culture - Preliminary Gram Negative John Resulted 12/20/19 18:55 Rectum Received Laboratory Tests 12/22/19 07:51: POC Whole Blood Glucose [Pending] 12/22/19 08:05: White Blood Count 10.7, Red Blood Count 2.80L, Hemoglobin 9.3L, Hematocrit 31.8L , Mean Corpuscular Volume 113H, Mean Corpuscular Hemoglobin 33.1H, Mean Corpuscular Hemoglobin Concent 29.2L, Red Cell Distribution Width 14.9H, Platelet Count 106L, Mean Platelet Volume 6.4L, Neutrophils (%) (Auto) , Lymphocytes (%) (Auto) , Monocytes (%) (Auto) , Eosinophils (%) (Auto) , Basophils (%) (Auto) , Differential Total Cells Counted 100, Neutrophils % ( Manual) 70, Lymphocytes % (Manual) 25, Monocytes % (Manual) 5, Eosinophils % ( Manual) 0, Basophils % (Manual) 0, Band Neutrophils 0, Platelet Estimate DecreasedL, Platelet Morphology Normal, Hypochromasia 1+, Anisocytosis 1+, Macrocytosis 1+, Sodium Level 153H, Potassium Level 4.2, Chloride Level 119H, Carbon Dioxide Level 27, Anion Gap 7, Blood Urea Nitrogen 20H, Creatinine 1.5H, Estimat Glomerular Filtration Rate 44.1, Glucose Level 219#H, Uric Acid 7.2, Calcium Level 6.3L, Phosphorus Level 2.2L, Magnesium Level 1.9, Total Bilirubin 0.2, Aspartate Amino Transf (AST/SGOT) 33, Alanine Aminotransferase (ALT/SGPT) 13, Alkaline Phosphatase 109, C-Reactive Protein, Quantitative 19.6H, Pro-B- Type Natriuretic Peptide 2133H, Total Protein 5.4L, Albumin 1.2L, Globulin 4.2, Albumin/Globulin Ratio 0.3L Current Medications Medications (Trade) Dose Ordered Sig/Venita Route PRN Reason Start Time Stop Time Status Last Admin Dose Admin Benztropine Mesylate (Cogentin) 2 mg BID ORAL 12/21/19 09:00 01/20/20 08:59 12/22/19 09:33 Cefepime HCl 1 gm/ Dextrose 55 ml @ 110 mls/hr Q12H IVPB 12/22/19 10:00 12/29/19 09:59 Dexamethasone (Decadron) 6 mg DAILY ORAL 12/21/19 12:00 01/20/20 11:59 12/22/19 09:34 Dextrose 1,000 ml @ 75 mls/hr [id number] IV 12/20/19 22:00 01/19/20 21:59 12/22/19 00:26 Divalproex Sodium (Depakote ER) 500 mg DAILY ORAL 12/21/19 09:00 01/20/20 08:59 12/22/19 09:34 Docusate Sodium (Colace) 100 mg THREE TIMES A DAY ORAL 12/21/19 13:00 01/20/20 08:59 12/22/19 09:34 Haloperidol (Haldol) 2 mg TID ORAL 12/21/19 18:00 02/04/20 08:59 Heparin Sodium (Porcine) (Heparin 5000 units/ml) 5,000 units EVERY 12 HOURS SUBQ 12/21/19 09:00 02/04/20 08:59 Hydralazine HCl (Apresoline) 10 mg Q4H PRN IV Blood pressure over 160 systol 12/21/19 10:45 03/20/20 10:44 Lorazepam (Ativan) 1 mg Q6H PRN ORAL Agitation 12/21/19 14:15 12/28/19 14:14 12/22/19 04:42 Pantoprazole (Protonix) 40 mg EVERY 12 HOURS ORAL 12/21/19 10:30 01/20/20 10:29 12/22/19 09:35 Ziprasidone (Geodon) 40 mg Q12HR ORAL 12/21/19 21:00 02/04/20 20:59 12/22/19 09:35 Assessment/Plan Assessment/Plan IMPRESSION: 1. Probable COVID-19 pneumonia. Await pcr 2. Hypernatremia. Improved 3. Psych disorder. 4. long term resident. DISCUSSION: Agree with current medications and care. Continue steroids. Continue medications. Await COVID-19 testing. I will follow as russian language instructor. Roberta Manzo Omar Syed MD Dec 22, 2019 10:05
[2019-12-22] MEDS: Cefepime HCl 1 GM in D5W 55 ML IVPB SCH ×2 (10:45→21:29)
--- NOTE | 2019-12-22 11:17 | NUR ---
NURSE NOTES: Due to severe agitation, anxiousness, and combativeness, notified Dr. Burgos. Dr. Burgos ordered bilateral soft wrist restraints for safety. Will apply as ordered and check the circulation and skin. Will closely monitor the patient. Will continue plan of care.
--- NOTE | 2019-12-22 11:30 | NUR ---
NURSE NOTES: BS of 140 noted. Will closely monitor the patient. Will continue plan of care.
[2019-12-22 12:00] VITALS: BP 128/69
--- NOTE | 2019-12-22 12:00 | NUR ---
NURSE NOTES: Janelle Grullon at the bedside assessed the patient. Dr. Luis ordered UC. Will closely monitor the patient. Will continue plan of care.
--- NOTE | 2019-12-22 14:00 | NUR ---
NURSE NOTES: The patient is resting comfortably without acute distress or shortness of breath. Bilateral soft wrist restraints applied per order and skin and circulation is intact. Will closely monitor the patient. Will continue plan of care.
--- NOTE | 2019-12-22 14:26 | Cardiac Electrophysiology PN ---
Subjective Subjective [id number] Objective Last 24 Hour Vital Signs Date Time Temp Pulse Resp B/P (MAP) Pulse Ox O2 Delivery O2 Flow Rate FiO2 12/22/19 12:00 97.7 97 20 128/69 (88) 100 12/22/19 12:00 93 12/22/19 12:00 Room Air 12/22/19 08:00 97.0 103 20 114/63 (80) 99 12/22/19 08:00 104 12/22/19 08:00 Room Air 12/22/19 04:00 96.6 83 20 133/72 (92) 97 12/22/19 04:00 Room Air 12/22/19 00:00 98.4 92 20 108/61 (77) 97 12/22/19 00:00 Room Air 12/21/19 20:00 Room Air 12/21/19 20:00 97.2 81 20 119/64 (82) 97 12/21/19 16:00 96.6 98 20 100/50 (67) 97 12/21/19 16:00 Room Air Intake and Output 12/21/19 12/22/19 19:00 07:00 Intake Total 1025 ml 868 ml Balance 1025 ml 868 ml Intake Oral 500 ml IV Total 525 ml 868 ml # Voids 1 1 # Bowel Movements 1 Laboratory Tests Test 12/22/19 07:51 12/22/19 08:05 POC Whole Blood Glucose Pending White Blood Count 10.7 K/UL (4.8-10.8) Red Blood Count 2.80 M/UL (4.20-5.40) L Hemoglobin 9.3 G/DL (12.0-16.0) L Hematocrit 31.8 % (37.0-47.0) L Mean Corpuscular Volume 113 FL (80-99) H Mean Corpuscular Hemoglobin 33.1 PG (27.0-31.0) H Mean Corpuscular Hemoglobin Concent 29.2 G/DL (32.0-36.0) L Red Cell Distribution Width 14.9 % (11.6-14.8) H Platelet Count 106 K/UL (150-450) L Mean Platelet Volume 6.4 FL (6.5-10.1) L Neutrophils (%) (Auto) % (45.0-75.0) Lymphocytes (%) (Auto) % (20.0-45.0) Monocytes (%) (Auto) % (1.0-10.0) Eosinophils (%) (Auto) % (0.0-3.0) Basophils (%) (Auto) % (0.0-2.0) Differential Total Cells Counted 100 Neutrophils % (Manual) 70 % (45-75) Lymphocytes % (Manual) 25 % (20-45) Monocytes % (Manual) 5 % (1-10) Eosinophils % (Manual) 0 % (0-3) Basophils % (Manual) 0 % (0-2) Band Neutrophils 0 % (0-8) Platelet Estimate Decreased L Platelet Morphology Normal Hypochromasia 1+ Anisocytosis 1+ Macrocytosis 1+ Sodium Level 153 MMOL/L (136-145) H Potassium Level 4.2 MMOL/L (3.5-5.1) Chloride Level 119 MMOL/L (98-107) H Carbon Dioxide Level 27 MMOL/L (21-32) Anion Gap 7 mmol/L (5-15) Blood Urea Nitrogen 20 mg/dL (7-18) H Creatinine 1.5 MG/DL (0.55-1.30) H Estimat Glomerular Filtration Rate 44.1 mL/min (>60) Glucose Level 219 MG/DL (74-106) #H Uric Acid 7.2 MG/DL (2.6-7.2) Calcium Level 6.3 MG/DL (8.5-10.1) L Phosphorus Level 2.2 MG/DL (2.5-4.9) L Magnesium Level 1.9 MG/DL (1.8-2.4) Total Bilirubin 0.2 MG/DL (0.2-1.0) Aspartate Amino Transf (AST/SGOT) 33 U/L (15-37) Alanine Aminotransferase (ALT/SGPT) 13 U/L (12-78) Alkaline Phosphatase 109 U/L (46-116) C-Reactive Protein, Quantitative 19.6 mg/dL (0.00-0.90) H Pro-B-Type Natriuretic Peptide 2133 pg/mL (0-125) H Total Protein 5.4 G/DL (6.4-8.2) L Albumin 1.2 G/DL (3.4-5.0) L Globulin 4.2 g/dL Albumin/Globulin Ratio 0.3 (1.0-2.7) L Microbiology Date/Time Source Procedure Growth Status 12/20/19 18:55 Blood Blood Culture - Preliminary Resulted 12/20/19 18:40 Blood Blood Culture - Preliminary Gram Negative John Resulted 12/20/19 18:55 Rectum Received Steffen Mera MD Dec 22, 2019 14:26
[2019-12-22 16:00] VITALS: BP 113/66
--- NOTE | 2019-12-22 16:00 | NUR ---
NURSE NOTES: Bed bath given to the patient. Tolerated well. Vital signs stable. Will closely monitor the patient. Will continue plan of care.
--- NOTE | 2019-12-22 17:08 | Nephrology Progress Note ---
Assessment/Plan Problem List: (1) Renal failure Assessment: Acute on chronic (2) Suspected 2019-nCoV infection Assessment: Acute febrile illness (3) Hypernatremia Assessment: Improving (4) Hypoglycemia Assessment: Improving Assessment Renal failure, most likely chronic, with superimposed acute renal failure. Acute febrile illness, suspected COVID-19 infection. Hypernatremia, likely due to free water deficit. Hypoglycemia Severe hypoalbuminemia Atypical pneumonia Anemia History of psych disease Plan Stop blood pressure medication due to low blood pressure, adjust the dose when the blood pressure improves PRN IV hydralazine for blood pressure spike D5W IV hydration Protonix p.o. Albumin IV bolus Monitor renal parameters Continue per consultants Saha catheter, urine studies Subjective ROS Limited/Unobtainable: No Constitutional: Reports: malaise, weakness Objective Objective Last 24 Hour Vital Signs Date Time Temp Pulse Resp B/P (MAP) Pulse Ox O2 Delivery O2 Flow Rate FiO2 12/22/19 16:00 95 12/22/19 16:00 Room Air 12/22/19 16:00 98.1 98 20 113/66 (82) 98 12/22/19 12:00 97.7 97 20 128/69 (88) 100 12/22/19 12:00 93 12/22/19 12:00 Room Air 12/22/19 08:00 97.0 103 20 114/63 (80) 99 12/22/19 08:00 104 12/22/19 08:00 Room Air 12/22/19 04:00 96.6 83 20 133/72 (92) 97 12/22/19 04:00 Room Air 12/22/19 00:00 98.4 92 20 108/61 (77) 97 12/22/19 00:00 Room Air 12/21/19 20:00 Room Air 12/21/19 20:00 97.2 81 20 119/64 (82) 97 Intake and Output 12/21/19 12/22/19 19:00 07:00 Intake Total 1025 ml 868 ml Balance 1025 ml 868 ml Intake Oral 500 ml IV Total 525 ml 868 ml # Voids 1 1 # Bowel Movements 1 Laboratory Tests 12/22/19 07:51: POC Whole Blood Glucose [Pending] 12/22/19 08:05: White Blood Count 10.7, Red Blood Count 2.80L, Hemoglobin 9.3L, Hematocrit 31.8L , Mean Corpuscular Volume 113H, Mean Corpuscular Hemoglobin 33.1H, Mean Corpuscular Hemoglobin Concent 29.2L, Red Cell Distribution Width 14.9H, Platelet Count 106L, Mean Platelet Volume 6.4L, Neutrophils (%) (Auto) , Lymphocytes (%) (Auto) , Monocytes (%) (Auto) , Eosinophils (%) (Auto) , Basophils (%) (Auto) , Differential Total Cells Counted 100, Neutrophils % ( Manual) 70, Lymphocytes % (Manual) 25, Monocytes % (Manual) 5, Eosinophils % ( Manual) 0, Basophils % (Manual) 0, Band Neutrophils 0, Platelet Estimate DecreasedL, Platelet Morphology Normal, Hypochromasia 1+, Anisocytosis 1+, Macrocytosis 1+, Sodium Level 153H, Potassium Level 4.2, Chloride Level 119H, Carbon Dioxide Level 27, Anion Gap 7, Blood Urea Nitrogen 20H, Creatinine 1.5H, Estimat Glomerular Filtration Rate 44.1, Glucose Level 219#H, Uric Acid 7.2, Calcium Level 6.3L, Phosphorus Level 2.2L, Magnesium Level 1.9, Total Bilirubin 0.2, Aspartate Amino Transf (AST/SGOT) 33, Alanine Aminotransferase (ALT/SGPT) 13, Alkaline Phosphatase 109, C-Reactive Protein, Quantitative 19.6H, Pro-B- Type Natriuretic Peptide 2133H, Total Protein 5.4L, Albumin 1.2L, Globulin 4.2, Albumin/Globulin Ratio 0.3L Height (Feet): 5 Height (Inches): 4.00 Weight (Pounds): 154 General Appearance: no apparent distress, lethargic Cardiovascular: tachycardia Respiratory/Chest: decreased breath sounds Abdomen: distended Brian Pichardo MD Dec 22, 2019 17:08
--- NOTE | 2019-12-22 17:59 | Consultation ---
DATE OF CONSULTATION: 12/22/2019 INFECTIOUS DISEASES CONSULTATION This consult is for coverage of Dr. Montague. CONSULTING PHYSICIAN: Ron Luis MD PRIMARY ATTENDING PHYSICIAN: Ricky Potter DO REASON FOR CONSULTATION: Gram-negative sepsis, pneumonia. HISTORY OF PRESENT ILLNESS: This is a 54-year-old female admitted from nursing facility on 12/20/2019 because of fever, difficulty of breathing. The patient had Coronavirus test one day before admission that was negative. On the day of admission, had temperature 101.3, pulse up to 123, blood pressure was low 88/56. The patient is a poor historian. PAST MEDICAL HISTORY: Hypertension, asthma, psychiatric problem likely bipolar disorder, anemia. ALLERGIES: Allergic to ibuprofen. MEDICATIONS: Cefepime, , haloperidol, lorazepam, Colace, dexamethasone, hydralazine, benztropine. SOCIAL HISTORY: [facility] resident. No other history obtainable by the patient. REVIEW OF SYSTEMS: The patient is on restraints. According to nurse, had urinary retention and a Saha catheter was placed. PHYSICAL EXAMINATION: VITAL SIGNS: Temperature 97, pulse 104, blood pressure 114/60. GENERAL APPEARANCE: No acute distress. HEAD AND NECK: Nitta [place] conjunctivae. The patient has no teeth. No oral lesion. HEART: Tachycardic. LUNGS: Clear. ABDOMEN: Soft and nontender. EXTREMITIES: No edema. NEUROLOGIC: Awake, alert, disoriented on restraints. LABORATORY AND DIAGNOSTIC DATA: Blood culture growing gram-negative rods in both bottles. WBC 10.7, hemoglobin 9.3, hematocrit 31.8, platelets 106. Sodium 153, sodium at the time of admission was 157. BUN 20. Creatinine 1.5, creatinine at the time of admission was 1.9. Chloride 119, bicarb 27, glucose 219. Albumin 1.2. Chest x-ray showed low lung volumes, patchy infiltrates. some atypical pneumonia. IMPRESSION: Gram-negative sepsis, may have urinary source. The patient had urinary retention, has acute renal failure, hypernatremia, abnormal chest x-ray, atypical pneumonia, psychiatric problem likely bipolar, anemia, asthma, hypertension, hyperglycemia. RECOMMENDATION: Continue with cefepime. We will follow up the cultures. We will follow up the COVID tests. May need abdominal ultrasound. We will obtain urine culture. At the end of my exam, I thank Dr. Ricky Potter, for involving me in the care of this patient. Ron Luis M.D. DR: Tahir JOB#: [id number] CC:
[2019-12-22] MEDS ORDERED: Potassium Phosphate 20 MM in NS 275 ML IV ONE (18:00)
--- NOTE | 2019-12-22 18:00 | NUR ---
NURSE NOTES: Stable vital signs noted. Due medications administered as ordered. BS of 141 noted. Will closely monitor the patient. Will continue plan of care.
--- NOTE | 2019-12-22 18:15 | Progress Note ---
DATE: 12/22/2019 NOTE: DICTATION DISREGARDED SUBJECTIVE: This is a 54-year-old female patient. She has confusion, some disorganized thought process, and decline in cognition below her baseline that is why she does require inpatient treatment at this time. She has got feelings of hopelessness, helplessness, low energy, poor appetite, loss of interest in activity. . She has got pneumonia, diabetes, abnormal labs, shortness of breath. She has got altered mental status and decline in cognition below her baseline. Flip Burgos M.D. DR: KYA JOB#: [id number] CC:
--- NOTE | 2019-12-22 19:26 | NUR ---
HAND-OFF: Report given to [employer]. The patient is stable at this time. Endorsed plan of care.
--- NOTE | 2019-12-22 19:27 | NUR ---
NURSE NOTES: Received patient from DOT Leary. Patient is aaox1 with confusion, talkative with no acute distress, and on quality assurance monitor body. Patient is combative, on wrist restraints with bounding pulses, warm hands, no bruising or wounds, and <3 seconds capillary refill. Hydration and hygiene offered and provided. Skin issues noted. IV site on Left wrist 22g intact and patient. Bed is at its lowest position, locked; call light in reach and x3 bed rails are up. Will continue to monitor.
[2019-12-22 20:00] VITALS: BP 106/56
--- NOTE | 2019-12-22 21:30 | Consultation ---
DATE OF CONSULTATION: 12/22/2019 CARDIOLOGY CONSULTATION CONSULTING PHYSICIAN: Steffen Mera MD. REFERRING PHYSICIAN: Ricky Potter DO. REASON FOR CONSULTATION: Tachycardia and hypotension. HISTORY OF PRESENT ILLNESS: Patient is a 54-year-old lady with history of hypertension, renal insufficiency, asthma who is intermediate resident, was brought in for shortness of breath. The patient was found to be hypoxic and febrile. Patient was admitted and started on 4 L nasal cannula. Her chest x-ray showed bibasilar patchy infiltrates suspicious for pneumonia. Patient subsequently blood pressure dropping to 70s. Per my order, patient received a liter of saline. The blood pressure improved. At the time of my evaluation, her blood pressure is in the 90s. REVIEW OF SYSTEMS: Cannot be obtained due to her mental status and she also has history of psych. PAST MEDICAL HISTORY: As mentioned above. FAMILY HISTORY: Noncontributory. SOCIAL HISTORY: [facility]iary resident. Does not smoke. PHYSICAL EXAMINATION: VITAL SIGNS: Blood pressure is now 120/69, pulse is 97, respirations 18, temperature 97.7. HEAD AND NECK: Showed no JVD. LUNGS: Coarse rhonchi. CARDIOVASCULAR: Shows regular S1, S2. Mildly tachycardic. ABDOMEN: Soft. EXTREMITIES: No pitting edema. LABORATORY AND DIAGNOSTIC DATA: Labs show white count 10.7, hematocrit 9.2, hematocrit 31, and platelet count is 106. Sodium was 167 that improved to 153, BUN of 20, creatinine 1.5, and glucose of 219, potassium is 4.2. Troponin is negative x2. ASSESSMENT AND PLAN: 1. Hypotension. Likely due to dehydration. Sodium was 169 on arrival, with IV fluid improved to 153. This is likely due to patient's underlying pneumonic process. We will get an echocardiogram and completely rule out OR protocol. Patient is already on IV antibiotic. 2. History of hypertension, on p.r.n. IV hydralazine. 3. Severe hypernatremia. Patient is on IV fluid per Dr. Pichardo. 4. COVID-19 symptoms. Patient will be ruled out for COVID in isolation. It is of note patient's initial blood pressure was that subsequently had dropped. Thank you very much for allowing me to participate in the care of this patient. Please do not hesitate to contact me for any questions regarding my evaluation. Steffen Mera M.D. DR: GAVIN JOB#: [id number] CC:
[2019-12-23] VITALS: BP 114/57
--- NOTE | 2019-12-23 | NUR ---
NURSE NOTES: Patient is agitated, combative, and resistant to care. Patient was observed attempts to pull out IV lines and tries to hit healthcare workers with no observed catalyst for agitation. Educated patient on the importance of treatments; more reenforcement needed. Will continue to monitor.
[2019-12-23 04:00] VITALS: BP 116/70
[2019-12-23 06:17] LABS: HEMATOCRIT 31.7 % (37.0-47.0); HEMOGLOBIN 9.3 G/DL (12.0-16.0); MEAN CORPUSCULAR VOLUME 112 FL (80-99); PLATELET COUNT 115 K/UL (150-450); RED BLOOD COUNT 2.84 M/UL (4.20-5.40); RED CELL DISTRIBUTION WIDTH 14.7 % (11.6-14.8); WHITE BLOOD COUNT 8.1 K/UL (4.8-10.8)
[2019-12-23 06:26] LABS: ALANINE AMINOTRANSFERASE 17 U/L (12-78); ALBUMIN 1.2 G/DL (3.4-5.0); ALBUMIN/GLOBULIN RATIO 0.2 (1.0-2.7); ALKALINE PHOSPHATASE 131 U/L (46-116); ANION GAP 8 mmol/L (5-15); ASPARTATE AMINO TRANSFERASE 58 U/L (15-37); BILIRUBIN,TOTAL 0.4 MG/DL (0.2-1.0); BLOOD UREA NITROGEN 17 mg/dL (7-18); CALCIUM 6.9 MG/DL (8.5-10.1); CARBON DIOXIDE 27 MMOL/L (21-32); CHLORIDE 124 MMOL/L (98-107); CREATININE 1.6 MG/DL (0.55-1.30); PHOSPHORUS 3.7 MG/DL (2.5-4.9); SODIUM 158 MMOL/L (136-145)
--- NOTE | 2019-12-23 07:12 | NUR ---
HAND-OFF: Report given to DOT Leary.
--- NOTE | 2019-12-23 07:15 | NUR ---
NURSE NOTES: Received report from DOT Olivier. The patient is resting on the bed but severely confused, combative, and agitated. The patient is verbal and able to make needs known by verbal communication. ST with HR of 120-130s on the monitoring coordinator, the rhythm changed during assistant casino shift manager, but the night nurse did not report to cardiology yet. The patient is on 2L NC per order. The patient has R wrist 24G that got infiltrated, and inserted new IV on L FA 22G that is intact and patent and running IVF per order. The patient has Saha that is intact and patent and draining by gravity. Skin issue noted and dressing intact. Bilateral soft wrist restraints on, and skin and circulation intact. Per night nurse, the patient blood sugar was 62 and tried to give juice, but the patient refused drinking juice but did not report to the physician yet. Hyperkalemia with figure of 6.0 noted but did not report to the physician yet. Will follow up the order and lab. Will closely monitor the patient. Will continue plan of care. Addendum: 12/23/19 at 1353 by Curt Brantley RN The patient's bed in the lowest position, call light in reach, and fall and aspiration precaution reinforced.
--- NOTE | 2019-12-23 07:30 | NUR ---
NURSE NOTES: BS taken, and figure was 60. Apple juice with sugar given. Reported to Dr. Potter for further order. The patient is asymptomatic and talking to the nurse. Will carry out the order as soon as receives it. Will continue plan of care.
--- NOTE | 2019-12-23 07:30 | Consultation ---
DATE OF CONSULTATION: 12/20/2019 HISTORY OF PRESENT ILLNESS: This is a 54-year-old female patient with a history of status post pneumonia with hypoglycemia, history of bipolar II disorder. She is [facility], financially supported by [employer], Medicare normally, but she is very confused and disorganized. She has altered mental status, confusion, and decline in cognition below baseline. She also has poor insight. She appears to be mood labile on interview. As far as her medical problems, this patient has a history of hypoglycemia, atypical pneumonia, rule out COVID-19, hyponatremia. ALLERGIES: Motrin. PSYCHOTROPIC MEDICATIONS ON ADMISSION: She is currently on a psychotropic medication regimen of Haldol 0.5 mg 3 times a day, Ativan 1 mg 3 times a day p.r.n. anxiety and agitation, Depakote 500 mg daily, Cogentin 2 mg twice a day. SUBSTANCE ABUSE HISTORY: The patient is denying use of any drugs or alcohol at this time. SOCIAL HISTORY: The patient lives in a snf. Financially supported by [employer] and Medicare. No known legal problems. FAMILY PSYCHIATRIC HISTORY: There are no signs of any family psychiatric history. No medication for any family psych history. PAIN ASSESSMENT: 08/26 pain. DEVELOPMENTAL PROBLEMS: Denies. MENTAL STATUS EXAMINATION: This is a 54-year-old female. Appearance is disheveled. Her attitude is irritable and agitated. Her affect is labile. Intellect poor because she does not know current events and does not know last four presidents. Mood depressed and anxious. Motor activity, psychomotor agitation. Her attention span is poor because she cannot do serial 7s or spell world backwards. Orientation x2. She is oriented to person, place, not time or situation. Speech is pressured, nonsensical. Thought process, disorganized and illogical. Thought content, auditory hallucinations and paranoid delusions. Perception is poor because she does have perceptual disturbances such as auditory hallucinations and paranoid delusion. Abstract reasoning is poor because she does not understand proverbs and only has concrete thinking. Insight is poor because she does not recognize severity of her medical and psychiatric illness. Judgment is poor because she does not accept consequences for her actions. She is not able to contract for safety as far as suicidal or homicidal ideations when she leaves the hospital, however she is able to contract for safety while in the hospital. Short-term memory, 2 out of 3 recall after 5-minute delay, so poor short-term memory. Long-term memory is intact, she can recall long-term events in her life. DIAGNOSIS: PSYCHIATRIC: Schizoaffective, bipolar type. There is no secondary. MEDICAL: 1. Acute renal failure. 2. Generalized weakness. 3. Status post [place]. 4. Hypertension. PSYCHOSOCIAL STRESSES: Financial. Functional impairment is severe. PLAN: My plan for this patient is I am going to adjust this patient's Ativan so she is on a morning dose of Ativan 1 mg every 6 hours p.r.n. anxiety and agitation. Twenty minutes of reality-based supportive psychotherapy. I am also going to change the patient's Haldol to a dose of 2 mg 3 times a day to reduce agitation. Continue to treat her with medication regimen consisting of Depakote 500 mg daily. Twenty minutes of cognitive behavioral therapy provided to help her identify automatic negative thoughts, to help her convert negative thoughts to more positive thoughts to reduce depression, anxiety, and mood lability. Chart is reviewed and discussed with staff. The patient is seen and assessed at bedside. Flip Burgos M.D. DR: MELANIE JOB#: [id number] CC:
--- NOTE | 2019-12-23 07:45 | Consultation ---
DATE OF CONSULTATION: 12/22/2019 PSYCHOTHERAPY CONSULTATION PROGRESS NOTE CONSULTING PHYSICIAN: Hugo Ayala PsyD. TREATING ATTENDING PHYSICIAN: Ricky Potter DO. HISTORY OF PRESENT ILLNESS: The patient is a 54-year-old female patient, was brought to the hospital with possible COVID pneumonia and . The patient has been delusional anxious, asking this patient due to . The patient was congruent. The patient is refusing some of her treatment. She is very agitated, demanding . The patient will be transferred to [facility] for continuation of care after medically cleared. PAST MEDICAL HISTORY: Includes history of hypertension. ALLERGIES: The patient has allergies to Ibuprofen. SUBSTANCE ABUSE HISTORY: There is no indication of alcohol use, illicit substance use, or smoking cigarettes. PSYCHIATRIC HISTORY: The patient has history of bipolar disorder and has been treated with psychotropic medications in the past. SOCIAL HISTORY: This is a 54-year-old single female patient from a custodial facility. Financially sustained through [employer]. MENTAL STATUS EXAMINATION: She is alert, oriented to person and place. Mood is anxious. Affect is labile. Thought process, disorganized. Thought content, paranoid delusions. She has poor attention and concentration. Poor insight, judgment, and impulse control. DIAGNOSES: 1. Rule out schizoaffective disorder, bipolar type. 2. . 3. Hypertension. 4. Psychosocial stressors, moderate. The patient is from a custodial facility. The patient was delusional, agitated, and restless. I ASSESSED THIS PATIENT AND PROVIDED THE PATIENT WITH: 5. Reality orientation focused on improving cognitive level of function as the patient is very confused and disorganized. The patient is oriented to person, place, time, and situation. 6. Provided the patient with supportive psychotherapy. 7. Encouraged the patient to communicate and articulate thoughts utilizing positive communication skills, redirecting the patient's cognitive distortions and delusions. the patient. PLAN: To maintain medication compliance with the use of positive coping skills to stabilize thoughts and behavior. Psychotherapy service for this patient provided is 45 minutes. This clinician has reviewed the patient's chart and discussed treatment with treatment team. Hugo Ayala PsyD. DR: ALONSO JOB#: [id number] CC:
--- NOTE | 2019-12-23 07:45 | Progress Note ---
DATE: 12/22/2019 SUBJECTIVE: This is a 54-year-old female patient, still very confused, disorganized, confusion and mood debility, worsened by stress of her medical illness. That is why, her attending physician has requested daily psychiatric consultation. DIAGNOSIS: . Schizoaffective, bipolar type, rule out dementia with psychosis. PLAN: Plan for this patient is to treat her with a medication regimen consisting of Geodon 40 mg q.12h., Ativan 1 mg every 6 hours p.r.n. anxiety and agitation, Haldol 2 mg p.o. three times a day, and Depakote 500 mg daily. Twenty minutes of cognitive behavioral therapy will help her identify automatic negative thoughts and help to convert those negative thoughts to more positive thoughts to reduce depression, anxiety, and mood lability. She is very irritable and agitated. Thus, she has required . Chart reviewed. Discussed with staff. Seen and assessed at bedside. Flip Burgos M.D. DR: KYA JOB#: [id number] CC:
--- NOTE | 2019-12-23 07:50 | NUR ---
NURSE NOTES: Dr. Potter ordered D50 IVP once and consulted with Dr. Yang. Administered D50 as ordered. Rechecked BS and the figure was 130. Will closely monitor the patient. Will continue plan of care.
[2019-12-23 08:00] VITALS: BP 128/93
--- NOTE | 2019-12-23 08:00 | NUR ---
NURSE NOTES: Notified Dr. Mera regarding sinus tachycardia, hyperkalemia, hypoglycemia, and BP ranged between 100-110s systolic. Dr. Mera ordered EKG. Will perform EKG as soon as possible. Will continue plan of care.
--- NOTE | 2019-12-23 08:01 | Nephrology Progress Note ---
Assessment/Plan Problem List: (1) Renal failure Assessment: Acute on chronic (2) Suspected 2019-nCoV infection Assessment: Acute febrile illness (3) Hypernatremia Assessment: Improving (4) Hypoglycemia Assessment: Improving Assessment Renal failure, most likely chronic, with superimposed acute renal failure. Acute febrile illness, suspected COVID-19 infection. Hypernatremia, likely due to free water deficit. Hypoglycemia Severe hypoalbuminemia Atypical pneumonia Anemia History of psych disease Plan December 22: Will recheck serum potassium. If nonhemolyzed value still elevated will treat hyperkalemia. Discussed with DOT Leary. Continue the rest of the medication. Stop blood pressure medication due to low blood pressure, adjust the dose when the blood pressure improves PRN IV hydralazine for blood pressure spike D5W IV hydration Protonix p.o. Albumin IV bolus Monitor renal parameters Continue per consultants Saha catheter, urine studies Subjective ROS Limited/Unobtainable: No Constitutional: Reports: malaise, weakness Objective Objective Last 24 Hour Vital Signs Date Time Temp Pulse Resp B/P (MAP) Pulse Ox O2 Delivery O2 Flow Rate FiO2 12/23/19 04:00 Room Air 12/23/19 04:00 116 25 116/70 (85) 98 12/23/19 03:36 122 12/23/19 00:00 104 12/23/19 00:00 98.6 102 20 114/57 (76) 96 12/23/19 00:00 Room Air 12/22/19 20:00 98.4 111 22 106/56 (73) 98 12/22/19 20:00 Room Air 12/22/19 19:21 105 12/22/19 16:00 95 12/22/19 16:00 Room Air 12/22/19 16:00 98.1 98 20 113/66 (82) 98 12/22/19 12:00 97.7 97 20 128/69 (88) 100 12/22/19 12:00 93 12/22/19 12:00 Room Air Intake and Output 12/22/19 12/23/19 19:00 07:00 Intake Total 875 ml 572.59 ml Output Total 1600 ml 2100 ml Balance -725 ml -1527.41 ml Intake Oral 800 ml 215 ml IV Total 75 ml 357.59 ml Output Urine Total 1600 ml 2100 ml # Voids 1 # Bowel Movements 4 3 Laboratory Tests 12/22/19 08:05: White Blood Count 10.7, Red Blood Count 2.80L, Hemoglobin 9.3L, Hematocrit 31.8L , Mean Corpuscular Volume 113H, Mean Corpuscular Hemoglobin 33.1H, Mean Corpuscular Hemoglobin Concent 29.2L, Red Cell Distribution Width 14.9H, Platelet Count 106L, Mean Platelet Volume 6.4L, Neutrophils (%) (Auto) , Lymphocytes (%) (Auto) , Monocytes (%) (Auto) , Eosinophils (%) (Auto) , Basophils (%) (Auto) , Differential Total Cells Counted 100, Neutrophils % ( Manual) 70, Lymphocytes % (Manual) 25, Monocytes % (Manual) 5, Eosinophils % ( Manual) 0, Basophils % (Manual) 0, Band Neutrophils 0, Platelet Estimate DecreasedL, Platelet Morphology Normal, Hypochromasia 1+, Anisocytosis 1+, Macrocytosis 1+, Sodium Level 153H, Potassium Level 4.2, Chloride Level 119H, Carbon Dioxide Level 27, Anion Gap 7, Blood Urea Nitrogen 20H, Creatinine 1.5H, Estimat Glomerular Filtration Rate 44.1, Glucose Level 219#H, Uric Acid 7.2, Calcium Level 6.3L, Phosphorus Level 2.2L, Magnesium Level 1.9, Total Bilirubin 0.2, Aspartate Amino Transf (AST/SGOT) 33, Alanine Aminotransferase (ALT/SGPT) 13, Alkaline Phosphatase 109, C-Reactive Protein, Quantitative 19.6H, Pro-B- Type Natriuretic Peptide 2133H, Total Protein 5.4L, Albumin 1.2L, Globulin 4.2, Albumin/Globulin Ratio 0.3L 12/22/19 17:58: POC Whole Blood Glucose [Pending] 12/23/19 04:31: White Blood Count 8.1, Red Blood Count 2.84L, Hemoglobin 9.3L, Hematocrit 31.7L , Mean Corpuscular Volume 112H, Mean Corpuscular Hemoglobin 32.8H, Mean Corpuscular Hemoglobin Concent 29.4L, Red Cell Distribution Width 14.7, Platelet Count 115L, Mean Platelet Volume 7.0, Neutrophils (%) (Auto) , Lymphocytes (%) (Auto) , Monocytes (%) (Auto) , Eosinophils (%) (Auto) , Basophils (%) (Auto) , Sodium Level 158H, Potassium Level 6.0*H, Chloride Level 124H, Carbon Dioxide Level 27, Anion Gap 8, Blood Urea Nitrogen 17, Creatinine 1.6H, Estimat Glomerular Filtration Rate 40.8, Glucose Level 47#L, Calcium Level 6.9L, Phosphorus Level 3.7, Magnesium Level 2.0, Total Bilirubin 0.4, Aspartate Amino Transf (AST/SGOT) 58H, Alanine Aminotransferase (ALT/SGPT) 17, Alkaline Phosphatase 131H, Total Protein 6.2L, Albumin 1.2L, Globulin 5.0, Albumin/Globulin Ratio 0.2L, Troponin I 0.003 12/23/19 05:18: Urine Random Sodium 25 12/23/19 05:49: POC Whole Blood Glucose [Pending] Height (Feet): 5 Height (Inches): 4.00 Weight (Pounds): 154 General Appearance: no apparent distress Cardiovascular: tachycardia Respiratory/Chest: decreased breath sounds Abdomen: distended Brian Pichardo MD Dec 23, 2019 08:01
--- NOTE | 2019-12-23 08:10 | NUR ---
NURSE NOTES: Received a call back from Dr. Yang. Dr. Yang ordered to increase D5W from 100 to 125mL/hr. Carried out the order. Will increase the rate as ordered. Will continue plan of care.
--- NOTE | 2019-12-23 08:25 | General Progress Note ---
Assessment/Plan Problem List: (1) UTI (urinary tract infection) ICD Codes: N39.0 - Urinary tract infection, site not specified SNOMED: 85434306 (2) Malnutrition ICD Codes: E46 - Unspecified protein-calorie malnutrition SNOMED: 60451706 (3) Renal failure ICD Codes: N19 - Unspecified kidney failure SNOMED: 38586944 (4) HTN (hypertension) ICD Codes: I10 - Essential (primary) hypertension SNOMED: 70766404 (5) Hypoglycemia ICD Codes: E16.2 - Hypoglycemia, unspecified SNOMED: 675237793 (6) Hypernatremia ICD Codes: E87.0 - Hyperosmolality and hypernatremia SNOMED: 128228535 (7) Suspected 2019-nCoV infection ICD Codes: Z20.828 - Contact with and (suspected) exposure to other viral communicable diseases SNOMED: 331958656 Status: unchanged Assessment/Plan: o2 pulm tx abx pt diet cbc bmp am Subjective Constitutional: Reports: weakness Allergies: Coded Allergies: IBUPROFEN (Verified Allergy, Unknown, 12/20/19) All Systems: reviewed and negative except above Subjective o2nc calm in bed Objective Last 24 Hour Vital Signs Date Time Temp Pulse Resp B/P (MAP) Pulse Ox O2 Delivery O2 Flow Rate FiO2 12/23/19 04:00 Room Air 12/23/19 04:00 116 25 116/70 (85) 98 12/23/19 03:36 122 12/23/19 00:00 104 12/23/19 00:00 98.6 102 20 114/57 (76) 96 12/23/19 00:00 Room Air 12/22/19 20:00 98.4 111 22 106/56 (73) 98 12/22/19 20:00 Room Air 12/22/19 19:21 105 12/22/19 16:00 95 12/22/19 16:00 Room Air 12/22/19 16:00 98.1 98 20 113/66 (82) 98 12/22/19 12:00 97.7 97 20 128/69 (88) 100 12/22/19 12:00 93 12/22/19 12:00 Room Air Intake and Output 12/22/19 12/23/19 19:00 07:00 Intake Total 875 ml 572.59 ml Output Total 1600 ml 2100 ml Balance -725 ml -1527.41 ml Intake Oral 800 ml 215 ml IV Total 75 ml 357.59 ml Output Urine Total 1600 ml 2100 ml # Voids 1 # Bowel Movements 4 3 Laboratory Tests 12/22/19 17:58: POC Whole Blood Glucose [Pending] 12/23/19 04:31: White Blood Count 8.1, Red Blood Count 2.84L, Hemoglobin 9.3L, Hematocrit 31.7L , Mean Corpuscular Volume 112H, Mean Corpuscular Hemoglobin 32.8H, Mean Corpuscular Hemoglobin Concent 29.4L, Red Cell Distribution Width 14.7, Platelet Count 115L, Mean Platelet Volume 7.0, Neutrophils (%) (Auto) , Lymphocytes (%) (Auto) , Monocytes (%) (Auto) , Eosinophils (%) (Auto) , Basophils (%) (Auto) , Sodium Level 158H, Potassium Level 6.0*H, Chloride Level 124H, Carbon Dioxide Level 27, Anion Gap 8, Blood Urea Nitrogen 17, Creatinine 1.6H, Estimat Glomerular Filtration Rate 40.8, Glucose Level 47#L, Calcium Level 6.9L, Phosphorus Level 3.7, Magnesium Level 2.0, Total Bilirubin 0.4, Aspartate Amino Transf (AST/SGOT) 58H, Alanine Aminotransferase (ALT/SGPT) 17, Alkaline Phosphatase 131H, Troponin I 0.003, Total Protein 6.2L, Albumin 1.2L, Globulin 5.0, Albumin/Globulin Ratio 0.2L 12/23/19 05:18: Urine Random Sodium 25 12/23/19 05:49: POC Whole Blood Glucose [Pending] 12/23/19 07:42: POC Whole Blood Glucose [Pending] 12/23/19 08:02: POC Whole Blood Glucose [Pending] Height (Feet): 5 Height (Inches): 4.00 Weight (Pounds): 154 General Appearance: lethargic EENT: normal ENT inspection Neck: normal alignment Cardiovascular: normal rate, regular rhythm Respiratory/Chest: no respiratory distress, no accessory muscle use Extremities: normal inspection Skin: normal pigmentation Ricky Potter DO Dec 23, 2019 08:25
--- NOTE | 2019-12-23 08:30 | NUR ---
NURSE NOTES: Dr. Pichardo at the bedside assessed the patient. Notified abnormal lab including sodium and potassium level. Dr. Pichardo ordered stat repeat of potassium level to confirm. Called lab for redraw. Will follow up the lab. Will continue plan of care.
[2019-12-23] MEDS: Haloperidol 1mg tab ORAL SCH ×2 (09:00→12:31)
[2019-12-23] MEDS: Benztropine 1mg tab ORAL SCH ×2 (09:00→17:37)
[2019-12-23] MEDS: Ziprasidone 20mg cap ORAL SCH ×2 (09:00→20:58)
[2019-12-23] MEDS: Docusate 100mg cap ORAL SCH ×3 (09:00→17:37)
[2019-12-23] MEDS: Heparin 5000 units/ml inj SUBQ SCH ×2 (09:00→21:02)
--- NOTE | 2019-12-23 09:23 | NUR ---
RADIOLOGY DEPT., CHEST X-RAY DONE.-P.DYE
[2019-12-23] MEDS: Depakote ER 500mg tab ORAL SCH (09:53)
--- NOTE | 2019-12-23 10:00 | NUR ---
NURSE NOTES: Morning medications administered per order. The patient refused some medications. Will closely monitor the patient. Will continue plan of care.
[2019-12-23] MEDS: Cefepime HCl 1 GM in D5W 55 ML IVPB SCH (10:12)
--- NOTE | 2019-12-23 10:19 | Pulmonology Progress Note ---
Subjective ROS Limited/Unobtainable: No Interval Events: None new Constitutional: Reports: no symptoms HEENT: Repors: no symptoms Respiratory: Reports: no symptoms Cardiovascular: Reports: no symptoms Gastrointestinal/Abdominal: Reports: no symptoms Genitourinary: Reports: no symptoms Allergies: Coded Allergies: IBUPROFEN (Verified Allergy, Unknown, 12/20/19) All Systems: reviewed and negative except above Objective Last 24 Hour Vital Signs Date Time Temp Pulse Resp B/P (MAP) Pulse Ox O2 Delivery O2 Flow Rate FiO2 12/23/19 08:00 131 12/23/19 04:00 Room Air 12/23/19 04:00 116 25 116/70 (85) 98 12/23/19 03:36 122 12/23/19 00:00 104 12/23/19 00:00 98.6 102 20 114/57 (76) 96 12/23/19 00:00 Room Air 12/22/19 20:00 98.4 111 22 106/56 (73) 98 12/22/19 20:00 Room Air 12/22/19 19:21 105 12/22/19 16:00 95 12/22/19 16:00 Room Air 12/22/19 16:00 98.1 98 20 113/66 (82) 98 12/22/19 12:00 97.7 97 20 128/69 (88) 100 12/22/19 12:00 93 12/22/19 12:00 Room Air Intake and Output 12/22/19 12/23/19 19:00 07:00 Intake Total 875 ml 572.59 ml Output Total 1600 ml 2100 ml Balance -725 ml -1527.41 ml Intake Oral 800 ml 215 ml IV Total 75 ml 357.59 ml Output Urine Total 1600 ml 2100 ml # Voids 1 # Bowel Movements 4 3 General Appearance: no acute distress HEENT: normocephalic Respiratory: chest wall non-tender Cardiovascular: normal peripheral pulses, normal rate Abdomen: normal bowel sounds Extremities: no cyanosis Microbiology Date/Time Source Procedure Growth Status 12/20/19 18:55 Blood Blood Culture - Final Escherichia Coli Complete 12/20/19 18:40 Blood Blood Culture - Final Escherichia Coli Complete 12/20/19 18:55 Nasal Not Otherwise Specified MRSA Culture - Final NO METHICILLIN RESISTANT STAPH AUREUS... Complete 12/20/19 18:34 Nasopharynx Coronavirus COVID-19 PCR ([facility]) - Final Complete 12/20/19 18:55 Rectum VRE Culture - Final NO VANCOMYCIN RESISTANT ENTEROCOCCUS ... Complete 12/20/19 18:55 Rectum - Final NO CARBAPENEM-RESISTANT ENTEROBACTERI... Complete Laboratory Tests 12/22/19 17:58: POC Whole Blood Glucose [Pending] 12/23/19 04:31: White Blood Count 8.1, Red Blood Count 2.84L, Hemoglobin 9.3L, Hematocrit 31.7L , Mean Corpuscular Volume 112H, Mean Corpuscular Hemoglobin 32.8H, Mean Corpuscular Hemoglobin Concent 29.4L, Red Cell Distribution Width 14.7, Platelet Count 115L, Mean Platelet Volume 7.0, Neutrophils (%) (Auto) , Lymphocytes (%) (Auto) , Monocytes (%) (Auto) , Eosinophils (%) (Auto) , Basophils (%) (Auto) , Sodium Level 158H, Potassium Level 6.0*H, Chloride Level 124H, Carbon Dioxide Level 27, Anion Gap 8, Blood Urea Nitrogen 17, Creatinine 1.6H, Estimat Glomerular Filtration Rate 40.8, Glucose Level 47#L, Calcium Level 6.9L, Phosphorus Level 3.7, Magnesium Level 2.0, Total Bilirubin 0.4, Aspartate Amino Transf (AST/SGOT) 58H, Alanine Aminotransferase (ALT/SGPT) 17, Alkaline Phosphatase 131H, Troponin I 0.003, Total Protein 6.2L, Albumin 1.2L, Globulin 5.0, Albumin/Globulin Ratio 0.2L 12/23/19 05:18: Urine Random Sodium 25 12/23/19 05:49: POC Whole Blood Glucose [Pending] 12/23/19 07:42: POC Whole Blood Glucose [Pending] 12/23/19 08:02: POC Whole Blood Glucose [Pending] Current Medications Medications (Trade) Dose Ordered Sig/Venita Route PRN Reason Start Time Stop Time Status Last Admin Dose Admin Benztropine Mesylate (Cogentin) 2 mg BID ORAL 12/21/19 09:00 01/20/20 08:59 12/22/19 18:00 Cefepime HCl 1 gm/ Dextrose 55 ml @ 110 mls/hr Q12H IVPB 12/22/19 10:00 12/29/19 09:59 12/22/19 21:29 Dexamethasone (Decadron) 6 mg DAILY ORAL 12/21/19 12:00 01/20/20 11:59 12/23/19 09:51 Dextrose 1,000 ml @ 125 mls/hr Q8H IV 12/23/19 08:15 01/22/20 08:14 12/23/19 09:45 Divalproex Sodium (Depakote ER) 500 mg DAILY ORAL 12/21/19 09:00 01/20/20 08:59 12/23/19 09:53 Docusate Sodium (Colace) 100 mg THREE TIMES A DAY ORAL 12/21/19 13:00 01/20/20 08:59 12/22/19 18:00 Haloperidol (Haldol) 2 mg TID ORAL 12/21/19 18:00 02/04/20 08:59 Heparin Sodium (Porcine) (Heparin 5000 units/ml) 5,000 units EVERY 12 HOURS SUBQ 12/21/19 09:00 02/04/20 08:59 Hydralazine HCl (Apresoline) 10 mg Q4H PRN IV Blood pressure over 160 systol 12/21/19 10:45 03/20/20 10:44 Lorazepam (Ativan) 1 mg Q6H PRN ORAL Agitation 12/21/19 14:15 12/28/19 14:14 12/22/19 23:00 Pantoprazole (Protonix) 40 mg EVERY 12 HOURS ORAL 12/21/19 10:30 01/20/20 10:29 12/23/19 09:54 Ziprasidone (Geodon) 40 mg Q12HR ORAL 12/21/19 21:00 02/04/20 20:59 12/22/19 21:29 Assessment/Plan Assessment/Plan IMPRESSION: 1. COnfirmed COVID-19 pneumonia. 2. Hypernatremia. Improved 3. Psych disorder. 4. [facility] resident. 5. E Coli bacteremia DISCUSSION: Agree with current medications and care. Continue steroids. Continue medications. 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 Abx per ID Currently saturating well on RA Roberta Manzozi,Hector Nimesh MD Dec 23, 2019 10:19
--- NOTE | 2019-12-23 10:30 | NUR ---
NURSE NOTES: Rechecked potassium level per order and figure of 3.[address] Pichardo. No new order yet. Will continue plan of care.
--- NOTE | 2019-12-23 11:00 | NUR ---
NURSE NOTES: Dr. Montague at the bedside assessed patient. Notified positive blood culture and positive COVID result. Per Dr. Montague, the patient does not meet criteria for Remdesivir. Will closely monitor the patient. Will continue plan of care.
--- NOTE | 2019-12-23 11:10 | Infectious Diseases Prog Note ---
Assessment/Plan Assessment/Plan antibiotics : cefepime A 1. e.coli sepsis 2. COVID 19 pneumonia on room air, 100 percent saturation 3. fever 4. hypertension 5. renal failure improving 6. bipolar disorder 7. asthma P 1, d/c cefepime 2. start ceftriaxone 3. will consider remdesivir 4. continue dexamethasone day 4 5. US abdomen 6. continue isolation Subjective ROS Limited/Unobtainable: Yes Allergies: Coded Allergies: IBUPROFEN (Verified Allergy, Unknown, 12/20/19) Objective Last 24 Hour Vital Signs Date Time Temp Pulse Resp B/P (MAP) Pulse Ox O2 Delivery O2 Flow Rate FiO2 12/23/19 08:00 131 12/23/19 04:00 Room Air 12/23/19 04:00 116 25 116/70 (85) 98 12/23/19 03:36 122 12/23/19 00:00 104 12/23/19 00:00 98.6 102 20 114/57 (76) 96 12/23/19 00:00 Room Air 12/22/19 20:00 98.4 111 22 106/56 (73) 98 12/22/19 20:00 Room Air 12/22/19 19:21 105 12/22/19 16:00 95 12/22/19 16:00 Room Air 12/22/19 16:00 98.1 98 20 113/66 (82) 98 12/22/19 12:00 97.7 97 20 128/69 (88) 100 12/22/19 12:00 93 12/22/19 12:00 Room Air Height (Feet): 5 Height (Inches): 4.00 Weight (Pounds): 154 Microbiology Date/Time Source Procedure Growth Status 12/20/19 18:55 Blood Blood Culture - Final Escherichia Coli Complete 12/20/19 18:40 Blood Blood Culture - Final Escherichia Coli Complete 12/20/19 18:55 Nasal Not Otherwise Specified MRSA Culture - Final NO METHICILLIN RESISTANT STAPH AUREUS... Complete 12/20/19 18:34 Nasopharynx Coronavirus COVID-19 PCR ([facility]) - Final Complete 12/20/19 18:55 Rectum VRE Culture - Final NO VANCOMYCIN RESISTANT ENTEROCOCCUS ... Complete 12/20/19 18:55 Rectum - Final NO CARBAPENEM-RESISTANT ENTEROBACTERI... Complete Laboratory Tests Test 12/22/19 17:58 12/23/19 04:31 12/23/19 05:18 12/23/19 05:49 POC Whole Blood Glucose Pending Pending White Blood Count 8.1 K/UL (4.8-10.8) Red Blood Count 2.84 M/UL (4.20-5.40) L Hemoglobin 9.3 G/DL (12.0-16.0) L Hematocrit 31.7 % (37.0-47.0) L Mean Corpuscular Volume 112 FL (80-99) H Mean Corpuscular Hemoglobin 32.8 PG (27.0-31.0) H Mean Corpuscular Hemoglobin Concent 29.4 G/DL (32.0-36.0) L Red Cell Distribution Width 14.7 % (11.6-14.8) Platelet Count 115 K/UL (150-450) L Mean Platelet Volume 7.0 FL (6.5-10.1) Neutrophils (%) (Auto) % (45.0-75.0) Lymphocytes (%) (Auto) % (20.0-45.0) Monocytes (%) (Auto) % (1.0-10.0) Eosinophils (%) (Auto) % (0.0-3.0) Basophils (%) (Auto) % (0.0-2.0) Sodium Level 158 MMOL/L (136-145) H Potassium Level 6.0 MMOL/L (3.5-5.1) *H Chloride Level 124 MMOL/L (98-107) H Carbon Dioxide Level 27 MMOL/L (21-32) Anion Gap 8 mmol/L (5-15) Blood Urea Nitrogen 17 mg/dL (7-18) Creatinine 1.6 MG/DL (0.55-1.30) H Estimat Glomerular Filtration Rate 40.8 mL/min (>60) Glucose Level 47 MG/DL (74-106) #L Calcium Level 6.9 MG/DL (8.5-10.1) L Phosphorus Level 3.7 MG/DL (2.5-4.9) Magnesium Level 2.0 MG/DL (1.8-2.4) Total Bilirubin 0.4 MG/DL (0.2-1.0) Aspartate Amino Transf (AST/SGOT) 58 U/L (15-37) H Alanine Aminotransferase (ALT/SGPT) 17 U/L (12-78) Alkaline Phosphatase 131 U/L (46-116) H Troponin I 0.003 ng/mL (0.000-0.056) Total Protein 6.2 G/DL (6.4-8.2) L Albumin 1.2 G/DL (3.4-5.0) L Globulin 5.0 g/dL Albumin/Globulin Ratio 0.2 (1.0-2.7) L Urine Random Sodium 25 mmol/L (20-110) Test 12/23/19 07:42 12/23/19 08:02 12/23/19 09:41 12/23/19 10:30 POC Whole Blood Glucose Pending Pending Pending Potassium Level 3.4 MMOL/L (3.5-5.1) L Current Medications Medications (Trade) Dose Ordered Sig/Venita Route PRN Reason Start Time Stop Time Status Last Admin Dose Admin Benztropine Mesylate (Cogentin) 2 mg BID ORAL 12/21/19 09:00 01/20/20 08:59 12/22/19 18:00 Cefepime HCl 1 gm/ Dextrose 55 ml @ 110 mls/hr Q12H IVPB 12/22/19 10:00 12/29/19 09:59 12/23/19 10:12 Dexamethasone (Decadron) 6 mg DAILY ORAL 12/21/19 12:00 01/20/20 11:59 12/23/19 09:51 Dextrose 1,000 ml @ 125 mls/hr Q8H IV 12/23/19 08:15 01/22/20 08:14 12/23/19 09:45 Divalproex Sodium (Depakote ER) 500 mg DAILY ORAL 12/21/19 09:00 01/20/20 08:59 12/23/19 09:53 Docusate Sodium (Colace) 100 mg THREE TIMES A DAY ORAL 12/21/19 13:00 01/20/20 08:59 12/22/19 18:00 Haloperidol (Haldol) 2 mg TID ORAL 12/21/19 18:00 02/04/20 08:59 Heparin Sodium (Porcine) (Heparin 5000 units/ml) 5,000 units EVERY 12 HOURS SUBQ 12/21/19 09:00 02/04/20 08:59 Hydralazine HCl (Apresoline) 10 mg Q4H PRN IV Blood pressure over 160 systol 12/21/19 10:45 03/20/20 10:44 Lorazepam (Ativan) 1 mg Q6H PRN ORAL Agitation 12/21/19 14:15 12/28/19 14:14 12/22/19 23:00 Pantoprazole (Protonix) 40 mg EVERY 12 HOURS ORAL 12/21/19 10:30 01/20/20 10:29 12/23/19 09:54 Ziprasidone (Geodon) 40 mg Q12HR ORAL 12/21/19 21:00 02/04/20 20:59 12/22/19 21:29 Penny Montague MD Dec 23, 2019 11:10
--- NOTE | 2019-12-23 11:30 | NUR ---
NURSE NOTES: BS of 172 noted. Asymptomatic in terms of the condition. Will closely monitor the patient. Will continue plan of care.
[2019-12-23 12:00] VITALS: BP 120/81
--- NOTE | 2019-12-23 12:00 | NUR ---
NURSE NOTES: CXR, 2D ECHO, and EKG done at the bedside. Will continue plan of care.
[2019-12-23] MEDS: cefTRIAXone 1 GM in D5W 55 ML IVPB SCH (12:31)
--- NOTE | 2019-12-23 13:30 | NUR ---
NURSE NOTES: ST of improved over time. HR of 100s noted now. Will closely monitor the patient. Will continue plan of care.
--- NOTE | 2019-12-23 14:03 | Diagnostic Imaging Report ---
Indication: Shortness of breath Technique: One view of the chest Comparison: 12/20/2019 Findings: There is persistent elevation of the right hemidiaphragm. Right lung patchy infiltrates appear slightly increased from the prior exam. Streaky interstitial markings in the left hilar region are unchanged. Impression: Stable right lung infiltrates. Unchanged streaky interstitial infiltrates on the left, over 3 days
--- NOTE | 2019-12-23 14:49 | NUR ---
CASE MANAGEMENT: REVIEW SI: PNA . COVID-19 T 97.2 HR 135 RR 25 BP 106/56 SAT 96% NC/2L H/H 9.3/31.7 K 3.4 IS: CEFTRIAXONE IV Q24HR DECADRON IV QD D5W IVF @ 125ML/HR STEP DOWN UNIT STATUS DCP: PATIENT IS FROM [facility]
--- NOTE | 2019-12-23 15:00 | NUR ---
NURSE NOTES: The patient has been refusing PO meds at this time. Notified to Dr. Potter. Will closely monitor the patient. Will continue plan of care.
--- NOTE | 2019-12-23 15:13 | NUR ---
P.T Note: Consult received. Unable to proceed with P.T evaluation due to pt being uncooperative. Will reattempt.
--- NOTE | 2019-12-23 15:28 | Cardiac Electrophysiology PN ---
Assessment/Plan Assessment/Plan 1. Hypotension. Likely due to dehydration. Sodium was 169 on arrival, with IV fluid improved to 153. This is likely due to patient's underlying pneumonic process. Echocardiogram EF 65% 2. History of hypertension, on p.r.n. IV hydralazine. 3. Severe hypernatremia. Patient is on IV fluid per Dr. Pichardo. 4. COVID-19PNA in isolation. 5. K 6.0. Erroneous. Repeat 3.4 DW RN Subjective Subjective Now is Covid positive. In Isolation Objective Last 24 Hour Vital Signs Date Time Temp Pulse Resp B/P (MAP) Pulse Ox O2 Delivery O2 Flow Rate FiO2 12/23/19 12:00 97.9 121 20 120/81 (94) 98 12/23/19 12:00 Nasal Cannula 2.0 12/23/19 12:00 118 12/23/19 08:00 97.2 135 20 128/93 (105) 98 12/23/19 08:00 131 12/23/19 08:00 Nasal Cannula 2.0 12/23/19 04:00 Room Air 12/23/19 04:00 116 25 116/70 (85) 98 12/23/19 03:36 122 12/23/19 00:00 104 12/23/19 00:00 98.6 102 20 114/57 (76) 96 12/23/19 00:00 Room Air 12/22/19 20:00 98.4 111 22 106/56 (73) 98 12/22/19 20:00 Room Air 12/22/19 19:21 105 12/22/19 16:00 95 12/22/19 16:00 Room Air 12/22/19 16:00 98.1 98 20 113/66 (82) 98 Intake and Output 12/22/19 12/23/19 19:00 07:00 Intake Total 875 ml 572.59 ml Output Total 1600 ml 2100 ml Balance -725 ml -1527.41 ml Intake Oral 800 ml 215 ml IV Total 75 ml 357.59 ml Output Urine Total 1600 ml 2100 ml # Voids 1 # Bowel Movements 4 3 Laboratory Tests Test 12/22/19 17:58 12/23/19 04:31 12/23/19 05:18 12/23/19 05:49 POC Whole Blood Glucose Pending Pending White Blood Count 8.1 K/UL (4.8-10.8) Red Blood Count 2.84 M/UL (4.20-5.40) L Hemoglobin 9.3 G/DL (12.0-16.0) L Hematocrit 31.7 % (37.0-47.0) L Mean Corpuscular Volume 112 FL (80-99) H Mean Corpuscular Hemoglobin 32.8 PG (27.0-31.0) H Mean Corpuscular Hemoglobin Concent 29.4 G/DL (32.0-36.0) L Red Cell Distribution Width 14.7 % (11.6-14.8) Platelet Count 115 K/UL (150-450) L Mean Platelet Volume 7.0 FL (6.5-10.1) Neutrophils (%) (Auto) % (45.0-75.0) Lymphocytes (%) (Auto) % (20.0-45.0) Monocytes (%) (Auto) % (1.0-10.0) Eosinophils (%) (Auto) % (0.0-3.0) Basophils (%) (Auto) % (0.0-2.0) Sodium Level 158 MMOL/L (136-145) H Potassium Level 6.0 MMOL/L (3.5-5.1) *H Chloride Level 124 MMOL/L (98-107) H Carbon Dioxide Level 27 MMOL/L (21-32) Anion Gap 8 mmol/L (5-15) Blood Urea Nitrogen 17 mg/dL (7-18) Creatinine 1.6 MG/DL (0.55-1.30) H Estimat Glomerular Filtration Rate 40.8 mL/min (>60) Glucose Level 47 MG/DL (74-106) #L Calcium Level 6.9 MG/DL (8.5-10.1) L Phosphorus Level 3.7 MG/DL (2.5-4.9) Magnesium Level 2.0 MG/DL (1.8-2.4) Total Bilirubin 0.4 MG/DL (0.2-1.0) Aspartate Amino Transf (AST/SGOT) 58 U/L (15-37) H Alanine Aminotransferase (ALT/SGPT) 17 U/L (12-78) Alkaline Phosphatase 131 U/L (46-116) H Troponin I 0.003 ng/mL (0.000-0.056) Total Protein 6.2 G/DL (6.4-8.2) L Albumin 1.2 G/DL (3.4-5.0) L Globulin 5.0 g/dL Albumin/Globulin Ratio 0.2 (1.0-2.7) L Urine Random Sodium 25 mmol/L (20-110) Test 12/23/19 07:42 12/23/19 08:02 12/23/19 09:41 12/23/19 10:30 POC Whole Blood Glucose Pending Pending Pending Potassium Level 3.4 MMOL/L (3.5-5.1) L Microbiology Date/Time Source Procedure Growth Status 12/20/19 18:55 Blood Blood Culture - Final Escherichia Coli Complete 12/20/19 18:40 Blood Blood Culture - Final Escherichia Coli Complete 12/20/19 18:55 Nasal Not Otherwise Specified MRSA Culture - Final NO METHICILLIN RESISTANT STAPH AUREUS... Complete 12/20/19 18:34 Nasopharynx Coronavirus COVID-19 PCR ([facility]) - Final Complete 12/20/19 18:55 Rectum VRE Culture - Final NO VANCOMYCIN RESISTANT ENTEROCOCCUS ... Complete 12/20/19 18:55 Rectum - Final NO CARBAPENEM-RESISTANT ENTEROBACTERI... Complete Objective HEAD AND NECK: Showed no JVD. LUNGS: Coarse rhonchi. CARDIOVASCULAR: Shows regular S1, S2. Mildly tachycardic. ABDOMEN: Soft. EXTREMITIES: No pitting edema. Steffen Mera MD Dec 23, 2019 15:28
[2019-12-23 16:00] VITALS: BP 129/83
--- NOTE | 2019-12-23 16:30 | NUR ---
NURSE NOTES: BS of 241 noted. Asymptomatic and stable at this time. D5W @125mL/hr running per order. Will closely monitor the patient. Will continue plan of care.
--- NOTE | 2019-12-23 17:00 | NUR ---
NURSE NOTES: Bed bath given to the patient. Tolerated well. SR of 70-80s on the monitor. Will closely monitor the patient. Will continue plan of care.
--- NOTE | 2019-12-23 17:00 | Progress Note ---
DATE: 12/23/2019 SUBJECTIVE: This is a 54-year-old female patient. She is confused, disorganized. She has altered mental status, confusion, decline in cognition below baseline. That is why, her attending has requested consultation. She has altered mental status, confusion. She is status post pneumonia and hyperglycemia. She is confused, disorganized. Cognition has declined below baseline and she has COVID-19 infection, hyponatremia, so she does require inpatient treatment at this time. She has got feelings of hopelessness, helplessness, low energy, poor appetite, loss of interest in activity. That is why, she does require inpatient treatment at this time. MENTAL STATUS EXAMINATION: The is a 54-year-old female. Appearance is disheveled. Attitude, irritable and agitated. Affect, guarded and restricted. Intellect poor. Mood, depressed and anxious. Motor activity, psychomotor agitation. Attention span is poor. Orientation x2. Speech is pressured. Thought process, disorganized and illogical. Insight and judgment is poor. DIAGNOSIS: Schizoaffective bipolar type. PLAN: I am going to treat her with a psychotropic medication regimen consisting of Haldol 10 mg 3 times a day, Geodon 40 mg twice a day, but she still seems to have some psychomotor agitation as well. I am going to increase this patient's Haldol to 5 mg 3 times a day to reduce agitation, irritability, and combativeness. Twenty minutes of cognitive behavioral therapy provided to help her identify automatic negative thoughts, help her convert negative thoughts to more positive thoughts to reduce depression, anxiety, suicidality. Chart reviewed. Discussed with staff. Seen and assessed at the bedside. Flip Burgos M.D. DR: CLINTON JOB#: [id number] CC:
--- NOTE | 2019-12-23 19:30 | NUR ---
NURSE NOTES: Report received from DOT Leary. Patient awake, disoriented, but able to make needs known. Left forearm 22 gauge observed and patent running D5W @ 125 mL/hr. Patient on 2L O2 N/C. No respiratory distress noted. Observed with soft-wrist restraints on left and right hands. All needs met. Call light within reach. Bed in lowest and locked position. Made aware of AM abdominal ultrasound and will keep patient NPO at midnight. Will continue to monitor.
--- NOTE | 2019-12-23 19:30 | NUR ---
HAND-OFF: Report given to [employer]. The patient is stable at this time. Endorsed plan of care.
[2019-12-23 20:00] VITALS: BP 120/84
[2019-12-24 04:00] VITALS: BP 111/66
--- NOTE | 2019-12-24 07:20 | NUR ---
HAND-OFF: Report given to DOT Nick. Patient in stable condition. Afebrile and no distress noted. Endorsed plan of care.
--- NOTE | 2019-12-24 07:21 | NUR ---
NURSE NOTES: Received patient from Soy RN/Johanna RN. Patient is awake, alert and oriented x2-x3. Sinus Tachycardia on the heart monitor, HR 112. Receiving oxygen via nasal cannula at 2L/min, O2 saturation at 98%. IV site is Left forearm 22g receiving D5W at 125cc/hr. Saha catheter is intact and draining. Bed is locked, placed in lowest position, side rails up x3, bed alarm on, call light within reach. Will continue to monitor.
[2019-12-24 08:00] VITALS: BP 122/77
[2019-12-24] MEDS: Benztropine 1mg tab ORAL SCH ×2 (08:55→17:39)
[2019-12-24] MEDS: dexAMETHasone 10mg/ml Inj IV SCH (08:55)
[2019-12-24] MEDS: Heparin 5000 units/ml inj SUBQ SCH ×2 (08:56→21:00)
[2019-12-24] MEDS: Depakote ER 500mg tab ORAL SCH (08:56)
[2019-12-24] MEDS: Ziprasidone 20mg cap ORAL SCH ×2 (08:56→21:47)
[2019-12-24] MEDS: Docusate 100mg cap ORAL SCH ×3 (08:56→17:39)
--- NOTE | 2019-12-24 09:48 | Pulmonology Progress Note ---
Subjective ROS Limited/Unobtainable: Yes Interval Events: None new Constitutional: Reports: no symptoms HEENT: Repors: no symptoms Respiratory: Reports: no symptoms Cardiovascular: Reports: no symptoms Gastrointestinal/Abdominal: Reports: no symptoms Genitourinary: Reports: no symptoms Allergies: Coded Allergies: IBUPROFEN (Verified Allergy, Unknown, 12/20/19) All Systems: reviewed and negative except above Objective Last 24 Hour Vital Signs Date Time Temp Pulse Resp B/P (MAP) Pulse Ox O2 Delivery O2 Flow Rate FiO2 12/24/19 08:00 97.3 111 18 122/77 (92) 97 12/24/19 08:00 Nasal Cannula 2.0 12/24/19 04:00 97.6 109 20 111/66 (81) 98 12/24/19 04:00 Nasal Cannula 2.0 12/24/19 03:36 84 12/24/19 00:00 124 12/24/19 00:00 Nasal Cannula 2.0 12/23/19 20:00 97.9 110 20 120/84 (96) 91 12/23/19 20:00 Nasal Cannula 2.0 12/23/19 16:00 97.9 110 20 129/83 (98) 100 12/23/19 16:00 Nasal Cannula 2.0 12/23/19 16:00 81 12/23/19 12:00 97.9 121 20 120/81 (94) 98 12/23/19 12:00 Nasal Cannula 2.0 12/23/19 12:00 118 Intake and Output 12/23/19 12/24/19 19:00 07:00 Intake Total 713.584 ml 912.250 ml Output Total 2000 ml 820 ml Balance -1286.416 ml 92.250 ml Intake Oral 600 ml IV Total 113.584 ml 912.250 ml Output Urine Total 2000 ml 820 ml # Bowel Movements 3 1 General Appearance: no acute distress HEENT: normocephalic Respiratory: chest wall non-tender Cardiovascular: normal peripheral pulses, normal rate Abdomen: normal bowel sounds Extremities: no cyanosis Microbiology Date/Time Source Procedure Growth Status 12/23/19 05:18 Indwelling Cath Urine Culture - Preliminary NO GROWTH AFTER 24 HOURS Resulted Laboratory Tests 12/23/19 10:30: Potassium Level 3.4L 12/23/19 17:36: POC Whole Blood Glucose [Pending] Current Medications Medications (Trade) Dose Ordered Sig/Venita Route PRN Reason Start Time Stop Time Status Last Admin Dose Admin Benztropine Mesylate (Cogentin) 2 mg BID ORAL 12/21/19 09:00 01/20/20 08:59 12/24/19 08:55 Ceftriaxone Sodium 1 gm/ Dextrose 55 ml @ 110 mls/hr Q24H IVPB 12/23/19 12:00 12/30/19 11:59 12/23/19 12:31 Dexamethasone Sodium Phosphate (Decadron 10mg/ ml Inj) 6 mg DAILY IV 12/24/19 09:00 03/23/20 08:59 12/24/19 08:55 Dextrose 1,000 ml @ 125 mls/hr Q8H IV 12/23/19 08:15 01/22/20 08:14 12/24/19 08:55 Divalproex Sodium (Depakote ER) 500 mg DAILY ORAL 12/21/19 09:00 01/20/20 08:59 12/24/19 08:56 Docusate Sodium (Colace) 100 mg THREE TIMES A DAY ORAL 12/21/19 13:00 01/20/20 08:59 12/24/19 08:56 Haloperidol (Haldol) 5 mg TID ORAL 12/23/19 14:00 02/04/20 13:59 12/24/19 08:56 Heparin Sodium (Porcine) (Heparin 5000 units/ml) 5,000 units EVERY 12 HOURS SUBQ 12/21/19 09:00 02/04/20 08:59 12/23/19 21:02 Hydralazine HCl (Apresoline) 10 mg Q4H PRN IV Blood pressure over 160 systol 12/21/19 10:45 03/20/20 10:44 Lorazepam (Ativan) 1 mg Q6H PRN ORAL Agitation 12/21/19 14:15 12/28/19 14:14 12/22/19 23:00 Pantoprazole (Protonix) 40 mg EVERY 12 HOURS ORAL 12/21/19 10:30 01/20/20 10:29 12/24/19 08:56 Ziprasidone (Geodon) 40 mg Q12HR ORAL 12/21/19 21:00 02/04/20 20:59 12/24/19 08:56 Assessment/Plan Assessment/Plan IMPRESSION: 1. COnfirmed COVID-19 pneumonia. 2. Hypernatremia. Improved 3. Psych disorder. 4. [facility] resident. 5. E Coli bacteremia DISCUSSION: Agree with current medications and care. Continue steroids. Continue medications. 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 Abx per ID Currently saturating well on 2L/min Roberta Manzo Omar Syed MD Dec 24, 2019 09:48
--- NOTE | 2019-12-24 10:32 | Infectious Diseases Prog Note ---
Assessment/Plan Assessment/Plan antibiotics : ceftriaxone A 1. e.coli sepsis 2. COVID 19 pneumonia on 2 liters, 98 percent saturation 3. fever improving 4. hypertension 5. renal failure 6. bipolar disorder 7. asthma P 1, continue ceftriaxone 5 more days 2. continue dexamethasone day 5 3. US abdomen pending 4. continue isolation Subjective ROS Limited/Unobtainable: Yes Allergies: Coded Allergies: IBUPROFEN (Verified Allergy, Unknown, 12/20/19) Objective Last 24 Hour Vital Signs Date Time Temp Pulse Resp B/P (MAP) Pulse Ox O2 Delivery O2 Flow Rate FiO2 12/24/19 08:00 97.3 111 18 122/77 (92) 97 12/24/19 08:00 116 12/24/19 08:00 Nasal Cannula 2.0 12/24/19 04:00 97.6 109 20 111/66 (81) 98 12/24/19 04:00 Nasal Cannula 2.0 12/24/19 03:36 84 12/24/19 00:00 124 12/24/19 00:00 Nasal Cannula 2.0 12/23/19 20:00 97.9 110 20 120/84 (96) 91 12/23/19 20:00 Nasal Cannula 2.0 12/23/19 16:00 97.9 110 20 129/83 (98) 100 12/23/19 16:00 Nasal Cannula 2.0 12/23/19 16:00 81 12/23/19 12:00 97.9 121 20 120/81 (94) 98 12/23/19 12:00 Nasal Cannula 2.0 12/23/19 12:00 118 Height (Feet): 5 Height (Inches): 4.00 Weight (Pounds): 154 Microbiology Date/Time Source Procedure Growth Status 12/23/19 05:18 Indwelling Cath Urine Culture - Preliminary NO GROWTH AFTER 24 HOURS Resulted Laboratory Tests Test 12/23/19 10:30 12/23/19 17:36 Potassium Level 3.4 MMOL/L (3.5-5.1) L POC Whole Blood Glucose Pending Current Medications Medications (Trade) Dose Ordered Sig/Venita Route PRN Reason Start Time Stop Time Status Last Admin Dose Admin Benztropine Mesylate (Cogentin) 2 mg BID ORAL 12/21/19 09:00 01/20/20 08:59 12/24/19 08:55 Ceftriaxone Sodium 1 gm/ Dextrose 55 ml @ 110 mls/hr Q24H IVPB 12/23/19 12:00 12/30/19 11:59 12/23/19 12:31 Dexamethasone Sodium Phosphate (Decadron 10mg/ ml Inj) 6 mg DAILY IV 12/24/19 09:00 03/23/20 08:59 12/24/19 08:55 Dextrose 1,000 ml @ 125 mls/hr Q8H IV 12/23/19 08:15 01/22/20 08:14 12/24/19 08:55 Divalproex Sodium (Depakote ER) 500 mg DAILY ORAL 12/21/19 09:00 01/20/20 08:59 12/24/19 08:56 Docusate Sodium (Colace) 100 mg THREE TIMES A DAY ORAL 12/21/19 13:00 01/20/20 08:59 12/24/19 08:56 Haloperidol (Haldol) 5 mg TID ORAL 12/23/19 14:00 02/04/20 13:59 12/24/19 08:56 Heparin Sodium (Porcine) (Heparin 5000 units/ml) 5,000 units EVERY 12 HOURS SUBQ 12/21/19 09:00 02/04/20 08:59 12/23/19 21:02 Hydralazine HCl (Apresoline) 10 mg Q4H PRN IV Blood pressure over 160 systol 12/21/19 10:45 03/20/20 10:44 Lorazepam (Ativan 2mg/ml 1ml) 1 mg Q4H PRN IV For Anxiety 12/24/19 10:30 12/31/19 10:29 Lorazepam (Ativan) 1 mg Q6H PRN ORAL Agitation 12/21/19 14:15 12/28/19 14:14 12/22/19 23:00 Pantoprazole (Protonix) 40 mg EVERY 12 HOURS ORAL 12/21/19 10:30 01/20/20 10:29 12/24/19 08:56 Ziprasidone (Geodon) 40 mg Q12HR ORAL 12/21/19 21:00 02/04/20 20:59 12/24/19 08:56 Penny Montague MD Dec 24, 2019 10:32
[2019-12-24] MEDS: LORazepam Inj 2mg/ml 1ml IV PRN (10:33)
--- NOTE | 2019-12-24 10:40 | NUR ---
NURSE NOTES: Patient attempted to get out of bed and was agitated, attempted to pull off Nasal cannula and IV. Prescribed Ativan 1mg IV given to patient. Will continue to monitor.
--- NOTE | 2019-12-24 10:54 | Consultation ---
History of Present Illness General Chief Complaint: Dyspnea/Respdistress Present Illness Allergies: Coded Allergies: IBUPROFEN (Verified Allergy, Unknown, 12/20/19) Medication History Scheduled Amlodipine Besylate* (Amlodipine Besylate*), 10 MG ORAL DAILY, (Reported) Amlodipine Besylate* (Amlodipine Besylate*), 10 MG ORAL DAILY Benazepril Hcl* (Benazepril Hcl*), 20 MG ORAL DAILY, (Reported) Benazepril Hcl* (Benazepril Hcl*), 20 MG ORAL EVERY 12 HOURS Benztropine Mesylate* (Benztropine Mesylate*), 2 MG ORAL BID, (Reported) Divalproex Sodium* (Depakote Er*), 500 MG ORAL DAILY, (Reported) Docusate Sodium* (Colace*), 100 MG ORAL DAILY, (Reported) Ferrous Sulfate* (Ferrous Sulfate*), 325 MG ORAL DAILY, (Reported) Haloperidol* (Haldol*), 0.5 MG ORAL TID, (Reported) Lurasidone Hcl (Latuda), 80 MG PO BID, (Reported) Lurasidone Hcl (Latuda), 80 MG PO BID Patient History Healthcare decision maker Resuscitation status Advanced Directive on File Physical Exam Last 24 Hour Vital Signs Date Time Temp Pulse Resp B/P (MAP) Pulse Ox O2 Delivery O2 Flow Rate FiO2 12/24/19 08:00 97.3 111 18 122/77 (92) 97 12/24/19 08:00 116 12/24/19 08:00 Nasal Cannula 2.0 12/24/19 04:00 97.6 109 20 111/66 (81) 98 12/24/19 04:00 Nasal Cannula 2.0 12/24/19 03:36 84 12/24/19 00:00 124 12/24/19 00:00 Nasal Cannula 2.0 12/23/19 20:00 97.9 110 20 120/84 (96) 91 12/23/19 20:00 Nasal Cannula 2.0 12/23/19 16:00 97.9 110 20 129/83 (98) 100 12/23/19 16:00 Nasal Cannula 2.0 12/23/19 16:00 81 12/23/19 12:00 97.9 121 20 120/81 (94) 98 12/23/19 12:00 Nasal Cannula 2.0 12/23/19 12:00 118 Intake and Output 12/23/19 12/24/19 19:00 07:00 Intake Total 713.584 ml 912.250 ml Output Total 2000 ml 820 ml Balance -1286.416 ml 92.250 ml Intake Oral 600 ml IV Total 113.584 ml 912.250 ml Output Urine Total 2000 ml 820 ml # Bowel Movements 3 1 Laboratory Tests Test 12/23/19 17:36 POC Whole Blood Glucose Pending Height (Feet): 5 Height (Inches): 4.00 Weight (Pounds): 154 Medications Current Medications Medications (Trade) Dose Ordered Sig/Venita Route PRN Reason Start Time Stop Time Status Last Admin Dose Admin Benztropine Mesylate (Cogentin) 2 mg BID ORAL 12/21/19 09:00 01/20/20 08:59 12/24/19 08:55 Ceftriaxone Sodium 1 gm/ Dextrose 55 ml @ 110 mls/hr Q24H IVPB 12/23/19 12:00 12/30/19 11:59 12/23/19 12:31 Dexamethasone Sodium Phosphate (Decadron 10mg/ ml Inj) 6 mg DAILY IV 12/24/19 09:00 03/23/20 08:59 12/24/19 08:55 Dextrose 1,000 ml @ 125 mls/hr Q8H IV 12/23/19 08:15 01/22/20 08:14 12/24/19 08:55 Divalproex Sodium (Depakote ER) 500 mg DAILY ORAL 12/21/19 09:00 01/20/20 08:59 12/24/19 08:56 Docusate Sodium (Colace) 100 mg THREE TIMES A DAY ORAL 12/21/19 13:00 01/20/20 08:59 12/24/19 08:56 Haloperidol (Haldol) 5 mg TID ORAL 12/23/19 14:00 02/04/20 13:59 12/24/19 08:56 Heparin Sodium (Porcine) (Heparin 5000 units/ml) 5,000 units EVERY 12 HOURS SUBQ 12/21/19 09:00 02/04/20 08:59 12/23/19 21:02 Hydralazine HCl (Apresoline) 10 mg Q4H PRN IV Blood pressure over 160 systol 12/21/19 10:45 10/2/20 10:44 Lorazepam (Ativan 2mg/ml 1ml) 1 mg Q4H PRN IV For Anxiety 12/24/19 10:30 12/31/19 10:29 12/24/19 10:33 Lorazepam (Ativan) 1 mg Q6H PRN ORAL Agitation 12/21/19 14:15 12/28/19 14:14 12/22/19 23:00 Pantoprazole (Protonix) 40 mg EVERY 12 HOURS ORAL 12/21/19 10:30 01/20/20 10:29 12/24/19 08:56 Ziprasidone (Geodon) 40 mg Q12HR ORAL 12/21/19 21:00 02/04/20 20:59 12/24/19 08:56 Assessment/Plan Assessment/Plan: Heme Consultation Note REQ MD: Ricky Potter RFC: Low platelets and anemia DOS 12/24/2019 ID Patient is a 54-year-old female sent in from nursing facility after increased fever and difficulty with breathing. Patient reportedly had negative coronavirus testing yesterday. She was noted to have increased shortness of breath and decreased oxygen saturation. [facility] She was noted to have fever up to 101 degrees as well as decreased oxygen saturation was started on nonrebreather by paramedics. 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 COVID-19 Screening: Negative COVID-19 COVID-19 Testing Source: [employer] Patient History Past Medical History: see triage record Last Menstrual Period: na Reviewed Nursing Documentation: PMH: Agreed; PSxH: Agreed Nursing Documentation-PMH Past Medical History: No History, Except For Hx Hypertension: Yes Hx Asthma: Yes Review of Systems All Other Systems: limited - Limited by poor historian Physical Exam: Vitals: reviewed General: NAD HEENT: nc, at Neck: supple Chest: clear breath sounds bilaterally Cardiovascular: RRR, no s3, s4 Abdomen: soft, nontender, nd Extremities: no cce, normal range of motion Neuro: alert and oriented Labs noted Imaging reviewed Assessment and recs # Thrombocytopenia - potential causes multifactorial, evaluate liver and viral etiologies to begin, also could be related to underlying medications patient has received. covid19++ --> Hep panel and HIV ordered --> US abd to evaluate for cirrhosis and hsm ordered --> Peripheral smear ordered to evaluate for blasts /schistocytes --> abx and other meds have been reviewed --> ok for ppx if plt >50k w/ either heparin or lovenox --> Transfuse if Plt < 20k and fever, or if Plt < 10k without fever --> plt 143-->115 --> abx ctx # Anemia of iron deficiency, unspecified rule out gi bleed --> obtain a anemia panel, has been ordered --> will/have begun on iv iron and continue x 5 doses --> review if occult blood is + (review this to make sure +). Can consider gi eval --> hgb goal is >7, transfuse as needed --> trend CBC daily to make sure no major acute drop --> no evidence of hemolysis noted # Acute febrile illness due to covid19+++ --> due to Suspected 2019-nCoV infection -> on abx --> steriods ahve been given # Atypical pneumonia # Hypernatremia # Hypoglycemia # E..coli sepsis # COVID 19 pneumonia # Hypertension # renal failure # Bipolar disorder # Asthma # Dvt ppx heparin sq The timing of this note does not necessarily reflect the time of the patient was seen. Greatly appreciate consultation. Charanjit Sandoval MD Dec 24, 2019 10:54
--- NOTE | 2019-12-24 11:30 | NUR ---
NURSE NOTES: Patient is resting in bed, no longer agitated. Patient showing no signs of acute distress. Will continue to monitor.
--- NOTE | 2019-12-24 11:40 | NUR ---
NURSE NOTES: Patient seen and assessed by Dr. Mera.
[2019-12-24 12:00] VITALS: BP 124/84
[2019-12-24] MEDS: cefTRIAXone 1 GM in D5W 55 ML IVPB SCH (12:00)
--- NOTE | 2019-12-24 12:00 | NUR ---
P.T Note: P.T evaluation completed and tx initiated. Please refer to P.T evaluation for current functional status. Pt is alert, oriented x 2 , confused, easily gets agitated however can be redirected with gentle verbal and manual approach. Pt had no c/o pain during the entire P.T evaluation. Pt presented generalized weakness and poor activity tolerance as evidenced by visible SOB and rest breaks in between activities needed. O2 sats: lower to mid 90's during and after functional activities. Pt currently requires MOD A x 1 to turn/roll and mod/max a x 1 to complete supine to/from sitting. Pt was able to sit unsupported at the EOB , was able to transition from sitting to partial standing with MAX A x 1. Pt too weak to fully stand at this time. Pt would benefit from skilled P.T service to improve her strength and endurance to increased mobility independence. Recommend SNF with continued skilled P.T intervention upon DC. Thank you for this referral.
[2019-12-24 12:58] LABS: ALANINE AMINOTRANSFERASE 17 U/L (12-78); ALBUMIN 1.1 G/DL (3.4-5.0); ALBUMIN/GLOBULIN RATIO 0.2 (1.0-2.7); ALKALINE PHOSPHATASE 112 U/L (46-116); ANION GAP 8 mmol/L (5-15); ASPARTATE AMINO TRANSFERASE 29 U/L (15-37); BILIRUBIN,TOTAL 0.3 MG/DL (0.2-1.0); BLOOD UREA NITROGEN 13 mg/dL (7-18); CALCIUM 7.1 MG/DL (8.5-10.1); CARBON DIOXIDE 30 MMOL/L (21-32); CHLORIDE 130 MMOL/L (98-107); CREATININE 1.4 MG/DL (0.55-1.30); PHOSPHORUS 2.9 MG/DL (2.5-4.9); POTASSIUM 3.9 MMOL/L (3.5-5.1)
[2019-12-24 13:00] LABS: SODIUM 168 MMOL/L (136-145)
--- NOTE | 2019-12-24 13:15 | NUR ---
NURSE NOTES: Patient seen by Wound Care Nurse, replaced dressings and placed preventive dressings on patient to prevent pressure ulcers.
--- NOTE | 2019-12-24 13:18 | NUR ---
NURSE NOTES: Dr. Pichardo made aware of Sodium level of 168 MMOL/L, no new orders.
--- NOTE | 2019-12-24 13:44 | Consultation ---
History of Present Illness General Date patient seen: Dec 24, 2019 Chief Complaint: Dyspnea/Respdistress Present Illness HPI This is a 54-year-old female [facility] who is nonverbal at [facility] care facility care dependent patient that presented to [facility] for fevers and shortness of breath. Patient was identified to have fever 101.2 and noted be COVID positive. Admitted for further care and management. On admission identified to have a ventral hernia that was hard to palpation therefore surgery was called to evaluate and assist with care. Patient seen, patient evaluate, chart reviewed. Patient unable to participate in examination or provide history. She is identified to have a prior midline incision with a present recurrent incisional hernia Allergies: Coded Allergies: IBUPROFEN (Verified Allergy, Unknown, 12/20/19) Medication History Scheduled Amlodipine Besylate* (Amlodipine Besylate*), 10 MG ORAL DAILY, (Reported) Amlodipine Besylate* (Amlodipine Besylate*), 10 MG ORAL DAILY Benazepril Hcl* (Benazepril Hcl*), 20 MG ORAL DAILY, (Reported) Benazepril Hcl* (Benazepril Hcl*), 20 MG ORAL EVERY 12 HOURS Benztropine Mesylate* (Benztropine Mesylate*), 2 MG ORAL BID, (Reported) Divalproex Sodium* (Depakote Er*), 500 MG ORAL DAILY, (Reported) Docusate Sodium* (Colace*), 100 MG ORAL DAILY, (Reported) Ferrous Sulfate* (Ferrous Sulfate*), 325 MG ORAL DAILY, (Reported) Haloperidol* (Haldol*), 0.5 MG ORAL TID, (Reported) Lurasidone Hcl (Latuda), 80 MG PO BID, (Reported) Lurasidone Hcl (Latuda), 80 MG PO BID Patient History Limited by: medical condition History Provided By: Medical Record, PMD Healthcare decision maker Resuscitation status Advanced Directive on File Review of Systems ROS Narrative Cannot obtain given patient's baseline medical condition Physical Exam General Appearance: mild distress Lines, tubes and drains: peripheral HEENT: anicteric, mucous membranes moist Neck: normal inspection Respiratory/Chest: no respiratory distress, no accessory muscle use, decreased breath sounds Cardiovascular/Chest: regular rhythm Abdomen: soft, tender, hernia, other - Ventral incisional hernia incarcerated as I was unable to reduce it. Can note some tenderness or discomfort when manipulating given patient's facial grimacing. Extremities: slow capillary refill, other Skin Exam: warm/dry Neurologic: unresponsiveness Last 24 Hour Vital Signs Date Time Temp Pulse Resp B/P (MAP) Pulse Ox O2 Delivery O2 Flow Rate FiO2 12/24/19 12:00 88 12/24/19 12:00 Nasal Cannula 2.0 12/24/19 08:00 97.3 111 18 122/77 (92) 97 12/24/19 08:00 116 12/24/19 08:00 Nasal Cannula 2.0 12/24/19 04:00 97.6 109 20 111/66 (81) 98 12/24/19 04:00 Nasal Cannula 2.0 12/24/19 03:36 84 12/24/19 00:00 124 12/24/19 00:00 Nasal Cannula 2.0 12/23/19 20:00 97.9 110 20 120/84 (96) 91 12/23/19 20:00 Nasal Cannula 2.0 12/23/19 16:00 97.9 110 20 129/83 (98) 100 12/23/19 16:00 Nasal Cannula 2.0 12/23/19 16:00 81 Intake and Output 12/23/19 12/24/19 19:00 07:00 Intake Total 713.584 ml 912.250 ml Output Total 2000 ml 820 ml Balance -1286.416 ml 92.250 ml Intake Oral 600 ml IV Total 113.584 ml 912.250 ml Output Urine Total 2000 ml 820 ml # Bowel Movements 3 1 Laboratory Tests Test 12/23/19 17:36 12/24/19 12:00 POC Whole Blood Glucose Pending Sodium Level 168 MMOL/L (136-145) *H Potassium Level 3.9 MMOL/L (3.5-5.1) Chloride Level 130 MMOL/L (98-107) H Carbon Dioxide Level 30 MMOL/L (21-32) Anion Gap 8 mmol/L (5-15) Blood Urea Nitrogen 13 mg/dL (7-18) Creatinine 1.4 MG/DL (0.55-1.30) H Estimat Glomerular Filtration Rate 47.6 mL/min (>60) Glucose Level 172 MG/DL (74-106) #H Calcium Level 7.1 MG/DL (8.5-10.1) L Phosphorus Level 2.9 MG/DL (2.5-4.9) Magnesium Level 1.9 MG/DL (1.8-2.4) Total Bilirubin 0.3 MG/DL (0.2-1.0) Aspartate Amino Transf (AST/SGOT) 29 U/L (15-37) Alanine Aminotransferase (ALT/SGPT) 17 U/L (12-78) Alkaline Phosphatase 112 U/L (46-116) Total Protein 5.5 G/DL (6.4-8.2) L Albumin 1.1 G/DL (3.4-5.0) L Globulin 4.4 g/dL Albumin/Globulin Ratio 0.2 (1.0-2.7) L Hepatitis A IgM Antibody Pending Hepatitis B Surface Antigen Pending Hepatitis B Core IgM Antibody Pending Hepatitis C Antibody Pending HIV (1&2) Antibody Rapid Negative (NEGATIVE) Height (Feet): 5 Height (Inches): 4.00 Weight (Pounds): 154 Medications Current Medications Medications (Trade) Dose Ordered Sig/Venita Route PRN Reason Start Time Stop Time Status Last Admin Dose Admin Benztropine Mesylate (Cogentin) 2 mg BID ORAL 12/21/19 09:00 01/20/20 08:59 12/24/19 08:55 Ceftriaxone Sodium 1 gm/ Dextrose 55 ml @ 110 mls/hr Q24H IVPB 12/23/19 12:00 12/30/19 11:59 12/24/19 12:00 Dexamethasone Sodium Phosphate (Decadron 10mg/ ml Inj) 6 mg DAILY IV 12/24/19 09:00 03/23/20 08:59 12/24/19 08:55 Dextrose 1,000 ml @ 125 mls/hr Q8H IV 12/23/19 08:15 01/22/20 08:14 12/24/19 08:55 Divalproex Sodium (Depakote ER) 500 mg DAILY ORAL 12/21/19 09:00 01/20/20 08:59 12/24/19 08:56 Docusate Sodium (Colace) 100 mg THREE TIMES A DAY ORAL 12/21/19 13:00 01/20/20 08:59 12/24/19 08:56 Haloperidol (Haldol) 5 mg TID ORAL 12/23/19 14:00 02/04/20 13:59 12/24/19 08:56 Heparin Sodium (Porcine) (Heparin 5000 units/ml) 5,000 units EVERY 12 HOURS SUBQ 12/21/19 09:00 02/04/20 08:59 12/23/19 21:02 Hydralazine HCl (Apresoline) 10 mg Q4H PRN IV Blood pressure over 160 systol 12/21/19 10:45 03/20/20 10:44 Lorazepam (Ativan 2mg/ml 1ml) 1 mg Q4H PRN IV For Anxiety 12/24/19 10:30 12/31/19 10:29 12/24/19 10:33 Lorazepam (Ativan) 1 mg Q6H PRN ORAL Agitation 12/21/19 14:15 12/28/19 14:14 12/22/19 23:00 Pantoprazole (Protonix) 40 mg EVERY 12 HOURS ORAL 12/21/19 10:30 01/20/20 10:29 12/24/19 08:56 Ziprasidone (Geodon) 40 mg Q12HR ORAL 12/21/19 21:00 02/04/20 20:59 12/24/19 08:56 Assessment/Plan Problem List: (1) Incarcerated ventral hernia Assessment & Plan: 54-year-old female multi-medical comorbidities prior midline incision unknown prior surgery but has developed a incisional hernia that seems to be incarcerated at this time. On examination I was able to note the hernia facial grimacing by patient upon manipulation able to only partially reduce it and have ordered a stat CT scan. Case was discussed with primary care physician medical teams. Patient COVID positive abnormal labs will optimize await imaging findings and plan for potential surgical intervention. N.p.o. IV fluids IV antibiotics trend labs we will follow with recommendations thank you for let me participate in patient's care ICD Codes: K43.6 - Other and unspecified ventral hernia with obstruction, without gangrene SNOMED: 219314614 (2) Atypical pneumonia ICD Codes: J18.9 - Pneumonia, unspecified organism SNOMED: 280598620 (3) Acute febrile illness ICD Codes: R50.9 - Fever, unspecified SNOMED: 437166182 (4) Hypernatremia ICD Codes: E87.0 - Hyperosmolality and hypernatremia SNOMED: 845840949 (5) Hypoglycemia ICD Codes: E16.2 - Hypoglycemia, unspecified SNOMED: 522489087 (6) Renal failure ICD Codes: N19 - Unspecified kidney failure SNOMED: 01995224 (7) Malnutrition ICD Codes: E46 - Unspecified protein-calorie malnutrition SNOMED: 72285867 (8) UTI (urinary tract infection) ICD Codes: N39.0 - Urinary tract infection, site not specified SNOMED: 91639368 (9) HTN (hypertension) ICD Codes: I10 - Essential (primary) hypertension SNOMED: 09387914 (10) Suspected 2018-nCoV infection ICD Codes: Z20.828 - Contact with and (suspected) exposure to other viral communicable diseases SNOMED: 866537012 Aleksey Vargas Dec 24, 2019 13:44
--- NOTE | 2019-12-24 13:45 | General Progress Note ---
Assessment/Plan Problem List: (1) UTI (urinary tract infection) ICD Codes: N39.0 - Urinary tract infection, site not specified SNOMED: 49086425 (2) Malnutrition ICD Codes: E46 - Unspecified protein-calorie malnutrition SNOMED: 73568416 (3) Renal failure ICD Codes: N19 - Unspecified kidney failure SNOMED: 63939270 (4) HTN (hypertension) ICD Codes: I10 - Essential (primary) hypertension SNOMED: 83803982 (5) Hypoglycemia ICD Codes: E16.2 - Hypoglycemia, unspecified SNOMED: 031477786 (6) Hypernatremia ICD Codes: E87.0 - Hyperosmolality and hypernatremia SNOMED: 449677414 (7) Suspected 2019-nCoV infection ICD Codes: Z20.828 - Contact with and (suspected) exposure to other viral communicable diseases SNOMED: 290097277 Status: unchanged Assessment/Plan: o2 pulm tx abx pt diet cbc bmp am possible sx Subjective Constitutional: Reports: weakness Allergies: Coded Allergies: IBUPROFEN (Verified Allergy, Unknown, 12/20/19) All Systems: reviewed and negative except above Subjective o2nc calm in bed Objective Last 24 Hour Vital Signs Date Time Temp Pulse Resp B/P (MAP) Pulse Ox O2 Delivery O2 Flow Rate FiO2 12/24/19 12:00 88 12/24/19 12:00 Nasal Cannula 2.0 12/24/19 08:00 97.3 111 18 122/77 (92) 97 12/24/19 08:00 116 12/24/19 08:00 Nasal Cannula 2.0 12/24/19 04:00 97.6 109 20 111/66 (81) 98 12/24/19 04:00 Nasal Cannula 2.0 12/24/19 03:36 84 12/24/19 00:00 124 12/24/19 00:00 Nasal Cannula 2.0 12/23/19 20:00 97.9 110 20 120/84 (96) 91 12/23/19 20:00 Nasal Cannula 2.0 12/23/19 16:00 97.9 110 20 129/83 (98) 100 12/23/19 16:00 Nasal Cannula 2.0 12/23/19 16:00 81 Intake and Output 12/23/19 12/24/19 19:00 07:00 Intake Total 713.584 ml 912.250 ml Output Total 2000 ml 820 ml Balance -1286.416 ml 92.250 ml Intake Oral 600 ml IV Total 113.584 ml 912.250 ml Output Urine Total 2000 ml 820 ml # Bowel Movements 3 1 Laboratory Tests 12/23/19 17:36: POC Whole Blood Glucose [Pending] 12/24/19 12:00: Sodium Level 168*H, Potassium Level 3.9, Chloride Level 130H, Carbon Dioxide Level 30, Anion Gap 8, Blood Urea Nitrogen 13, Creatinine 1.4H, Estimat Glomerular Filtration Rate 47.6, Glucose Level 172#H, Calcium Level 7.1L, Phosphorus Level 2.9, Magnesium Level 1.9, Total Bilirubin 0.3, Aspartate Amino Transf (AST/SGOT) 29, Alanine Aminotransferase (ALT/SGPT) 17, Alkaline Phosphatase 112, Total Protein 5.5L, Albumin 1.1L, Globulin 4.4, Albumin/ Globulin Ratio 0.2L, Hepatitis A IgM Antibody [Pending], Hepatitis B Surface Antigen [Pending], Hepatitis B Core IgM Antibody [Pending], Hepatitis C Antibody [Pending], HIV (1&2) Antibody Rapid Negative Height (Feet): 5 Height (Inches): 4.00 Weight (Pounds): 154 General Appearance: lethargic EENT: normal ENT inspection Neck: normal alignment Cardiovascular: normal rate, regular rhythm Respiratory/Chest: no respiratory distress, no accessory muscle use Extremities: normal inspection Skin: normal pigmentation Ricky Potter DO Dec 24, 2019 13:45
--- NOTE | 2019-12-24 14:06 | Nephrology Progress Note ---
Assessment/Plan Problem List: (1) Renal failure Assessment: Acute on chronic (2) Suspected 2019-nCoV infection Assessment: Acute febrile illness (3) Hypernatremia Assessment: Improving (4) Hypoglycemia Assessment: Improving Assessment Renal failure, most likely chronic, with superimposed acute renal failure. Acute febrile illness, suspected COVID-19 infection. Hypernatremia, likely due to free water deficit. Hypoglycemia Severe hypoalbuminemia Atypical pneumonia Anemia History of psych disease Plan December 23: Renal parameters reviewed. Creatinine down to 1.4. Serum sodium higher. Patient is being investigated for incarcerated ventral hernia by general surgery. Continue current IV fluid and monitor renal parameters. December 22: Will recheck serum potassium. If nonhemolyzed value still elevated will treat hyperkalemia. Discussed with DOT Leary. Continue the rest of the medication. Stop blood pressure medication due to low blood pressure, adjust the dose when the blood pressure improves PRN IV hydralazine for blood pressure spike D5W IV hydration Protonix p.o. Albumin IV bolus Monitor renal parameters Continue per consultants Saha catheter, urine studies Subjective ROS Limited/Unobtainable: Yes Objective Objective Last 24 Hour Vital Signs Date Time Temp Pulse Resp B/P (MAP) Pulse Ox O2 Delivery O2 Flow Rate FiO2 12/24/19 12:00 88 12/24/19 12:00 Nasal Cannula 2.0 12/24/19 08:00 97.3 111 18 122/77 (92) 97 12/24/19 08:00 116 12/24/19 08:00 Nasal Cannula 2.0 12/24/19 04:00 97.6 109 20 111/66 (81) 98 12/24/19 04:00 Nasal Cannula 2.0 12/24/19 03:36 84 12/24/19 00:00 124 12/24/19 00:00 Nasal Cannula 2.0 12/23/19 20:00 97.9 110 20 120/84 (96) 91 12/23/19 20:00 Nasal Cannula 2.0 12/23/19 16:00 97.9 110 20 129/83 (98) 100 12/23/19 16:00 Nasal Cannula 2.0 12/23/19 16:00 81 Intake and Output 12/23/19 12/24/19 19:00 07:00 Intake Total 713.584 ml 912.250 ml Output Total 2000 ml 820 ml Balance -1286.416 ml 92.250 ml Intake Oral 600 ml IV Total 113.584 ml 912.250 ml Output Urine Total 2000 ml 820 ml # Bowel Movements 3 1 Laboratory Tests 12/23/19 17:36: POC Whole Blood Glucose [Pending] 12/24/19 12:00: Sodium Level 168*H, Potassium Level 3.9, Chloride Level 130H, Carbon Dioxide Level 30, Anion Gap 8, Blood Urea Nitrogen 13, Creatinine 1.4H, Estimat Glomerular Filtration Rate 47.6, Glucose Level 172#H, Calcium Level 7.1L, Phosphorus Level 2.9, Magnesium Level 1.9, Total Bilirubin 0.3, Aspartate Amino Transf (AST/SGOT) 29, Alanine Aminotransferase (ALT/SGPT) 17, Alkaline Phosphatase 112, Total Protein 5.5L, Albumin 1.1L, Globulin 4.4, Albumin/ Globulin Ratio 0.2L, Hepatitis A IgM Antibody [Pending], Hepatitis B Surface Antigen [Pending], Hepatitis B Core IgM Antibody [Pending], Hepatitis C Antibody [Pending], HIV (1&2) Antibody Rapid Negative Height (Feet): 5 Height (Inches): 4.00 Weight (Pounds): 154 General Appearance: no apparent distress Cardiovascular: tachycardia Respiratory/Chest: decreased breath sounds Abdomen: distended Brian Pichardo MD Dec 24, 2019 14:06
--- NOTE | 2019-12-24 14:44 | NUR ---
NURSE NOTES:WOUND CARE NOTES:Pt presented on admission with multiple Pressure injuries.Sacrum ,R and L Buttocks noted to be black,fluctuant with maroon borders. Non-blanching erythema periwound.(L)12cm x (W)10c. Full thickness pressure injury with Biofilm noted to lower L buttocks. Biofilm at base of wound with surrounding pink epithelial. No odor or exudate noted.(L)0.6cm x (W)0.5cm. DTPI L Heel (L)6.5cm x (W)9cm. Base of Pressure injury is fluctuant purple with surrounding maroon borders. Periwound heel is dry and firm. R heel is dry and easily blanchable. Tx.Plan: Apply Moisture Barrier Paste to Sacrum. Cover with Optifoam drsg. Change every 3 days and prn. Apply Moisture Barrier Paste to L buttocks. Cover with Optifoam drsg. Change every 3 days and prn. Apply Cavilon Skin Barrier to both heels and Malleoli. Cover each site with Optifoam drsgs. Change every 7 days and prn. Apply Phytoplex Skin Nourishing Lotion to both legs Daily and prn. Reposition at least every 2hours or as tolerated. Off-load heels with pillows. APM/BERRY Mattress overlay. Addendum: 12/24/19 at 1508 by Miguel Angel Adair LVN ADDENDUM TO ABOVE WOUND NOTES: Xeroses skin noted to bilat lower extremities and both feet.
--- NOTE | 2019-12-24 15:30 | NUR ---
NURSE NOTES: Patient went down to CT scan attached to monitor accompanied by RN and transportation tech. Patient tolerated well, no signs of acute distress during procedure, returned to SDU showing no acute signs of distress.
[2019-12-24 16:00] VITALS: BP 116/70
--- NOTE | 2019-12-24 16:44 | Diagnostic Imaging Report ---
Indication: Abdominal distention, ventral hernia Technique: Spiral acquisitions obtained through the abdomen and pelvis. No oral contrast given, reason not stated. No IV contrast utilized, reason not stated.. Multiplanar reconstructions were generated. Total dose length product 384 mGycm. CTDIvol(s) 7 mGy. Dose reduction achieved using automated exposure control Comparison: None Findings: Lack of enteric contrast limits assessment of the GI tract. There are abdominal wall hernia mesh anchors. Just inferior to the lowest anchor, there is a ventral hernia which contains a loop of small bowel, probably proximal ileum. Small bowel leading into the hernia is mildly dominant in caliber and fluid-filled. However, small bowel distal to the hernia is equally prominent in caliber, filled with gas rather than fluid. There is no significant wall thickening within the hernia or infiltration of the fat within the hernia sac. The appendix is not visualized. Surgical benson adjacent to the cecum suggest prior appendectomy. Moderate stool is seen in the distal colon. There is evidence of prior gastric surgery. The distal esophagus is unremarkable. The duodenum is unremarkable. Lack of IV contrast limits assessment of the solid organs. The liver is markedly hypoattenuating. The gallbladder has been removed. The pancreas, spleen, adrenals, left kidney are unremarkable. The right kidney demonstrates a cyst medially. No retroperitoneal or mesenteric mass or adenopathy. No pelvic mass or adenopathy. The bladder contains a Saha catheter. Some urine is seen within the bladder, despite the presence of the Saha catheter. There is also some gas within the bladder lumen presumably related to the Saha catheter placement. The uterus is unremarkable. There is a small to moderate-sized left pleural effusion and some compressive atelectasis at the left lung base. There is atelectasis at the right lung base. Within the right middle lobe and visualized right upper lobe and to a slight extent the inferior left upper lobe, there are groundglass opacities in a peribronchovascular distribution. The bones demonstrate degenerative and posttraumatic changes of the right hip. There are degenerative changes of the lumbar spine. Impression: Periumbilical ventral hernia, containing a loop of what is probably proximal ileum. Mildly distended fluid-filled small bowel loops leading into this may indicate a slight degree of small bowel obstruction. However, small bowel loops are also mildly dilated distally. Evidence of prior gastric surgery, cholecystectomy and appendectomy Evidence of prior abdominal wall hernia repair Fatty liver Diffuse edema of the subcutaneous fat Small to moderate left pleural effusion. Associated compressive atelectasis at the left lung base Bronchovascular groundglass opacities in the bilateral lungs, presumably related to stated clinical history of COVID infection Right renal cyst Saha catheter. Some retained urine within the bladder despite this Old healed right rib fracture. Degenerative changes of the right hip Other incidental findings as noted, including right renal cyst Findings discussed by phone with Dr. Vargas at the time of interpretation The CT scanner at [facility] is accredited by the [employer] and the scans are performed using protocols designed to limit radiation exposure to as low as reasonably achievable to attain images of sufficient resolution adequate for diagnostic evaluation.
--- NOTE | 2019-12-24 16:50 | Diagnostic Imaging Report ---
Indication: Abdominal pain, abnormal renal function tests Technique: Study limited, due to patient being COVID positive. Grayscale and duplex images of the liver, gallbladder fossa, and common bile duct were obtained. Comparison: Reference made to abdomen pelvis CT performed very shortly prior Findings: The gallbladder is not visualized, demonstrated on recent CT scan to have been surgically removed. Common bile duct measures 4 mm diameter. No intrahepatic biliary ductal dilatation. Liver demonstrates diffusely increased echogenicity, consistent with diffuse hepatocellular disease, most likely fatty change. Impression: Absent gallbladder Negative for dilated bile duct Diffusely increased hepatic echogenicity, consistent with diffuse hepatocellular disease, most likely fatty change.
--- NOTE | 2019-12-24 16:59 | Consultation ---
DATE OF CONSULTATION: 12/24/2019 ENDOCRINOLOGY CONSULTATION CONSULTING PHYSICIAN: Subhash Yang MD REFERRING PHYSICIAN: Ricky Potter DO REASON FOR CONSULTATION: Hypoglycemia. HISTORY OF PRESENT ILLNESS: The patient is a 54-year-old female with history of psychiatric illness, who was brought from a nursing facility with fever and increased difficulty breathing. The patient was ruled in for COVID-19 infection and was put in isolation. The patient was starting to get glucose in the 60s. Therefore, Endocrinology was consulted. Yesterday, she was started on dexamethasone which raised the glucose. The patient is also hypernatremic and is on dextrose infusion. PAST MEDICAL HISTORY: 1. Hypertension. 2. Asthma. 3. Psychiatric illness. 4. Chronic kidney disease. CURRENT MEDICATIONS: Reviewed and reconciled. REVIEW OF SYSTEMS: Unobtainable. HOME MEDICATIONS: Reviewed and reconciled. LABORATORY DATA: WBC 8, hemoglobin 9, hematocrit 31, platelets of 115. Sodium 158, potassium 6.0, chloride 124, bicarb 27, BUN 17, creatinine 1.6. Glucose of 47. TSH 1.0. PHYSICAL EXAMINATION: VITAL SIGNS: Blood pressure 111/66, heart rate 109, temperature 97.6, respiratory rate of 20. GENERAL: Not in acute distress. HEAD AND NECK: Normocephalic. HEART: Regular. LUNGS: Crackles. ABDOMEN: Positive bowel sounds. EXTREMITIES: No clubbing, cyanosis, or edema. DIAGNOSES: 1. COVID-19 infection. 2. Hypoglycemia. 3. Hypernatremia. DISCUSSION: 1. There is no history of diabetes. 2. Continue dextrose infusion. 3. Glucose monitoring before meals and at bedtime with no insulin coverage. 4. I will follow the patient closely during hospital stay Thank you, Dr. Potter, for the courtesy of this consultation. Subhash Yang M.D. DR: DOT/BLANCA JOB#: [id number] CC: MILLY
--- NOTE | 2019-12-24 17:02 | Cardiac Electrophysiology PN ---
Assessment/Plan Assessment/Plan 1. Hypotension. Likely due to dehydration. Sodium was 169 on arrival, with IV fluid improved to 153. This is likely due to patient's underlying pneumonic process. Echocardiogram EF 65% 2. History of hypertension, on p.r.n. IV hydralazine. 3. Severe hypernatremia. Patient is on IV fluid per Dr. Pichardo. 4. COVID-19PNA in isolation. 5. K 6.0. Erroneous. Repeat 3.4 DW RN Subjective Subjective Covid positive. In Isolation, Agitated and Echo EF 65% Objective Last 24 Hour Vital Signs Date Time Temp Pulse Resp B/P (MAP) Pulse Ox O2 Delivery O2 Flow Rate FiO2 12/24/19 16:00 Nasal Cannula 2.0 12/24/19 15:55 77 12/24/19 12:00 88 12/24/19 12:00 Nasal Cannula 2.0 12/24/19 12:00 98.2 116 20 124/84 (97) 99 12/24/19 08:00 97.3 111 18 122/77 (92) 97 12/24/19 08:00 116 12/24/19 08:00 Nasal Cannula 2.0 12/24/19 04:00 97.6 109 20 111/66 (81) 98 12/24/19 04:00 Nasal Cannula 2.0 12/24/19 03:36 84 12/24/19 00:00 124 12/24/19 00:00 Nasal Cannula 2.0 12/23/19 20:00 97.9 110 20 120/84 (96) 91 12/23/19 20:00 Nasal Cannula 2.0 Intake and Output 12/23/19 12/24/19 19:00 07:00 Intake Total 713.584 ml 912.250 ml Output Total 2000 ml 820 ml Balance -1286.416 ml 92.250 ml Intake Oral 600 ml IV Total 113.584 ml 912.250 ml Output Urine Total 2000 ml 820 ml # Bowel Movements 3 1 Laboratory Tests Test 12/23/19 17:36 12/24/19 12:00 POC Whole Blood Glucose Pending Sodium Level 168 MMOL/L (136-145) *H Potassium Level 3.9 MMOL/L (3.5-5.1) Chloride Level 130 MMOL/L (98-107) H Carbon Dioxide Level 30 MMOL/L (21-32) Anion Gap 8 mmol/L (5-15) Blood Urea Nitrogen 13 mg/dL (7-18) Creatinine 1.4 MG/DL (0.55-1.30) H Estimat Glomerular Filtration Rate 47.6 mL/min (>60) Glucose Level 172 MG/DL (74-106) #H Calcium Level 7.1 MG/DL (8.5-10.1) L Phosphorus Level 2.9 MG/DL (2.5-4.9) Magnesium Level 1.9 MG/DL (1.8-2.4) Total Bilirubin 0.3 MG/DL (0.2-1.0) Aspartate Amino Transf (AST/SGOT) 29 U/L (15-37) Alanine Aminotransferase (ALT/SGPT) 17 U/L (12-78) Alkaline Phosphatase 112 U/L (46-116) Total Protein 5.5 G/DL (6.4-8.2) L Albumin 1.1 G/DL (3.4-5.0) L Globulin 4.4 g/dL Albumin/Globulin Ratio 0.2 (1.0-2.7) L Hepatitis A IgM Antibody Pending Hepatitis B Surface Antigen Pending Hepatitis B Core IgM Antibody Pending Hepatitis C Antibody Pending HIV (1&2) Antibody Rapid Negative (NEGATIVE) Microbiology Date/Time Source Procedure Growth Status 12/23/19 05:18 Indwelling Cath Urine Culture - Preliminary NO GROWTH AFTER 24 HOURS Resulted Objective HEAD AND NECK: Showed no JVD. LUNGS: Coarse rhonchi. CARDIOVASCULAR: Shows regular S1, S2. ABDOMEN: Soft. EXTREMITIES: No pitting edema. Steffen Mera MD Dec 24, 2019 17:01
--- NOTE | 2019-12-24 17:06 | NUR ---
NURSE NOTES: Bed bath given to patient, turned and repositioned. Patient is afebrile, No signs of acute distress. Will continue to monitor.
--- NOTE | 2019-12-24 19:46 | NUR ---
HAND-OFF: Report given to Joanna CHRIS.
--- NOTE | 2019-12-24 19:50 | NUR ---
NURSE NOTES: Received report from Latrell Putnam RN. Pt in bed, stable, and alert. Bed in lowest position, bed alarm armed, call light within reach. Pt instructed to use call light if assistance; verbalized understanding. Will continue close monitoring and plan of care.
[2019-12-24 20:00] VITALS: BP 123/74
--- NOTE | 2019-12-24 21:22 | NUR ---
NURSE NOTES: Heparin held for plt count of 115. Pt is asymptomatic. Will continue to monitor closely.
--- NOTE | 2019-12-24 21:59 | NUR ---
NURSE NOTES: Pt refused medications Geodon 40mg and Protonix 40mg. Pt asymptomatic. Charge Nurse Jeffery Jeff RN, informed.
--- NOTE | 2019-12-24 23:14 | Progress Note ---
DATE: 12/24/2019 SUBJECTIVE: This is a 54-year-old female patient with suspected COVID infection. She is very confused and disorganized. She has got COVID pneumonia. She also has a hernia, but she has got decline in cognition below baseline. That is why her attending has requested daily psychiatric consultation. She has got feelings of helplessness, hopelessness, low energy, poor appetite, and loss of interest in activity. She does have some mood lability. The reason why she is in the hospital is because of suspected COVID infection, but she also has urinary tract infection, hypoglycemia, renal failure, malnutrition, and hyponatremia. I saw and assessed her at bedside. She is still confused, disorganized, but she has got a tremendous amount of psychomotor agitation redirected by the staff. MENTAL STATUS EXAMINATION: A 54-year-old female. Appearance is disheveled. Attitude irritable and agitated. Affect is labile. Intellect poor. Mood depressed and anxious. Motor activity, psychomotor agitation. Attention span is poor. Orientation x3. Speech is pressured. Thought process disorganized and illogical. Insight and judgment are poor. DIAGNOSIS: Schizoaffective, bipolar type. PLAN: My plan is Ativan 1 mg every 6 hours p.r.n. anxiety, agitation, Geodon titrated up to 40 mg q.12h., Depakote 500 mg daily, and then Haldol has been raised to 5 mg 3 times a day to reduce her agitation. Twenty minutes of cognitive behavioral therapy will help her identify automatic negative thoughts, help her convert her negative thoughts to more positive thoughts to reduce depression, anxiety, and mood lability. Chart was reviewed. Discussed with staff. Seen and assessed at bedside. Flip Burgos M.D. DR: MELANIE JOB#: [id number] CC:
[2019-12-25] VITALS (26 sets, daily range): BP systolic 88–142; BP diastolic 52–91
[2019-12-25 05:30] LABS: HEMATOCRIT 27.2 % (37.0-47.0); MEAN CORPUSCULAR VOLUME 111 FL (80-99); PLATELET COUNT 98 K/UL (150-450); RED BLOOD COUNT 2.45 M/UL (4.20-5.40); RED CELL DISTRIBUTION WIDTH 14.8 % (11.6-14.8)
[2019-12-25 05:37] LABS: INR 1.5 (0.9-1.1)
[2019-12-25 06:18] LABS: ALANINE AMINOTRANSFERASE 14 U/L (12-78); ALBUMIN/GLOBULIN RATIO 0.2 (1.0-2.7); ALKALINE PHOSPHATASE 101 U/L (46-116); AMYLASE 13 U/L (25-115); ANION GAP 9 mmol/L (5-15); ASPARTATE AMINO TRANSFERASE 29 U/L (15-37); BILIRUBIN,TOTAL 0.2 MG/DL (0.2-1.0); BLOOD UREA NITROGEN 10 mg/dL (7-18); CALCIUM 7.3 MG/DL (8.5-10.1); CARBON DIOXIDE 28 MMOL/L (21-32); CHLORIDE 131 MMOL/L (98-107); CREATININE 1.3 MG/DL (0.55-1.30); POTASSIUM 4.1 MMOL/L (3.5-5.1)
[2019-12-25 06:24] LABS: SODIUM 167 MMOL/L (136-145)
--- NOTE | 2019-12-25 06:25 | General Progress Note ---
Assessment/Plan Problem List: (1) Suspected 2019-nCoV infection ICD Codes: Z20.828 - Contact with and (suspected) exposure to other viral communicable diseases SNOMED: 421880758 (2) Hypoglycemia ICD Codes: E16.2 - Hypoglycemia, unspecified SNOMED: 876075445 (3) Hypernatremia ICD Codes: E87.0 - Hyperosmolality and hypernatremia SNOMED: 216158014 (4) Atypical pneumonia ICD Codes: J18.9 - Pneumonia, unspecified organism SNOMED: 139168809 (5) Acute febrile illness ICD Codes: R50.9 - Fever, unspecified SNOMED: 760703628 Status: unchanged Assessment/Plan: continue glucose monitoring no need for insulin hypoglycemia protocol in order Subjective Allergies: Coded Allergies: IBUPROFEN (Verified Allergy, Unknown, 12/20/19) Subjective events noted glucose values are stable no recurrence of hypoglycemia Item Value Date Time Bedside Blood Glucose 162 mg/dl H 12/23/19 2100 Bedside Blood Glucose 106 mg/dl 12/25/19 0622 Bedside Blood Glucose 117 mg/dl 12/24/19 2100 Bedside Blood Glucose 154 mg/dl H 12/24/19 1630 Bedside Blood Glucose 125 mg/dl H 12/24/19 1130 Bedside Blood Glucose 86 mg/dl 12/24/19 0630 Objective Last 24 Hour Vital Signs Date Time Temp Pulse Resp B/P (MAP) Pulse Ox O2 Delivery O2 Flow Rate FiO2 12/25/19 04:00 96.5 101 19 123/74 (90) 98 12/25/19 04:00 100 12/25/19 04:00 Nasal Cannula 2.0 12/25/19 00:00 Nasal Cannula 2.0 12/25/19 00:00 98.6 98 19 117/76 (90) 98 12/24/19 20:00 Nasal Cannula 2.0 12/24/19 20:00 108 12/24/19 20:00 98.6 101 19 123/74 (90) 98 12/24/19 16:00 97.9 110 16 116/70 (85) 98 12/24/19 16:00 Nasal Cannula 2.0 12/24/19 15:55 77 12/24/19 12:00 88 12/24/19 12:00 Nasal Cannula 2.0 12/24/19 12:00 98.2 116 20 124/84 (97) 99 12/24/19 08:00 97.3 111 18 122/77 (92) 97 12/24/19 08:00 116 12/24/19 08:00 Nasal Cannula 2.0 Intake and Output 12/24/19 12/25/19 19:00 07:00 Intake Total 1027.91 ml 200 ml Output Total 1400 ml 1200 ml Balance -372.09 ml -1000 ml Intake Oral 200 ml 200 ml IV Total 827.91 ml Output Urine Total 1400 ml 1200 ml # Bowel Movements 2 Laboratory Tests 12/24/19 06:29: POC Whole Blood Glucose 86 12/24/19 12:00: Sodium Level 168*H, Potassium Level 3.9, Chloride Level 130H, Carbon Dioxide Level 30, Anion Gap 8, Blood Urea Nitrogen 13, Creatinine 1.4H, Estimat Glomerular Filtration Rate 47.6, Glucose Level 172#H, Calcium Level 7.1L, Phosphorus Level 2.9, Magnesium Level 1.9, Total Bilirubin 0.3, Aspartate Amino Transf (AST/SGOT) 29, Alanine Aminotransferase (ALT/SGPT) 17, Alkaline Phosphatase 112, Total Protein 5.5L, Albumin 1.1L, Globulin 4.4, Albumin/ Globulin Ratio 0.2L, Hepatitis A IgM Antibody [Pending], Hepatitis B Surface Antigen [Pending], Hepatitis B Core IgM Antibody [Pending], Hepatitis C Antibody [Pending], HIV (1&2) Antibody Rapid Negative 12/25/19 04:46: Sodium Level [Pending], Potassium Level [Pending], Chloride Level [Pending], Carbon Dioxide Level [Pending], Blood Urea Nitrogen [Pending], Creatinine [ Pending], Estimat Glomerular Filtration Rate [Pending], Glucose Level [Pending] , Calcium Level [Pending], Total Bilirubin [Pending], Aspartate Amino Transf ( AST/SGOT) [Pending], Alanine Aminotransferase (ALT/SGPT) [Pending], Alkaline Phosphatase [Pending], Total Protein [Pending], Albumin [Pending], Globulin [ Pending], White Blood Count 9.0, Red Blood Count 2.45L, Hemoglobin 8.0L, Hematocrit 27.2L, Mean Corpuscular Volume 111H, Mean Corpuscular Hemoglobin 32.9H, Mean Corpuscular Hemoglobin Concent 29.6L, Red Cell Distribution Width 14.8, Platelet Count 98L, Mean Platelet Volume 6.7, Neutrophils (%) (Auto) , Lymphocytes (%) (Auto) , Monocytes (%) (Auto) , Eosinophils (%) (Auto) , Basophils (%) (Auto) , Neutrophils % (Manual) [Pending], Lymphocytes % (Manual) [Pending], Platelet Estimate [Pending], Platelet Morphology [Pending], Erythrocyte Sedimentation Rate [Pending], Prothrombin Time 15.6H, Prothromb Time International Ratio 1.5H, Activated Partial Thromboplast Time 34H, C- Reactive Protein, Quantitative [Pending], Amylase Level [Pending], Lipase [ Pending] Height (Feet): 5 Height (Inches): 4.00 Weight (Pounds): 166 Objective Current Medications Medications (Trade) Dose Ordered Sig/Venita Route PRN Reason Start Time Stop Time Status Last Admin Dose Admin Benztropine Mesylate (Cogentin) 2 mg BID ORAL 12/21/19 09:00 01/20/20 08:59 12/24/19 08:55 Ceftriaxone Sodium 1 gm/ Dextrose 55 ml @ 110 mls/hr Q24H IVPB 12/23/19 12:00 12/30/19 11:59 12/24/19 12:00 Dexamethasone Sodium Phosphate (Decadron 10mg/ ml Inj) 6 mg DAILY IV 12/24/19 09:00 03/23/20 08:59 12/24/19 08:55 Dextrose 1,000 ml @ 125 mls/hr Q8H IV 12/23/19 08:15 01/22/20 08:14 12/25/19 00:15 Divalproex Sodium (Depakote ER) 500 mg DAILY ORAL 12/21/19 09:00 01/20/20 08:59 12/24/19 08:56 Docusate Sodium (Colace) 100 mg THREE TIMES A DAY ORAL 12/21/19 13:00 01/20/20 08:59 12/24/19 08:56 Haloperidol (Haldol) 5 mg TID ORAL 12/23/19 14:00 02/04/20 13:59 12/24/19 08:56 Heparin Sodium (Porcine) (Heparin 5000 units/ml) 5,000 units EVERY 12 HOURS SUBQ 12/21/19 09:00 02/04/20 08:59 12/23/19 21:02 Hydralazine HCl (Apresoline) 10 mg Q4H PRN IV Blood pressure over 160 systol 12/21/19 10:45 03/20/20 10:44 Lorazepam (Ativan 2mg/ml 1ml) 1 mg Q4H PRN IV For Anxiety 12/24/19 10:30 12/31/19 10:29 12/24/19 10:33 Lorazepam (Ativan) 1 mg Q6H PRN ORAL Agitation 12/21/19 14:15 12/28/19 14:14 12/22/19 23:00 Pantoprazole (Protonix) 40 mg EVERY 12 HOURS ORAL 12/21/19 10:30 01/20/20 10:29 12/24/19 21:47 Ziprasidone (Geodon) 40 mg Q12HR ORAL 12/21/19 21:00 02/04/20 20:59 12/24/19 21:47 Subhash Yang MD Dec 25, 2019 06:25
--- NOTE | 2019-12-25 06:59 | Hematology/Onc Progress Note ---
Assessment/Plan Assessment/Plan Assessment and recs # Thrombocytopenia - potential causes multifactorial, evaluate liver and viral etiologies to begin, also could be related to underlying medications patient has received. covid19++ --> Hep panel and HIV ordered --> US abd to evaluate for cirrhosis and hsm ordered --> Peripheral smear ordered to evaluate for blasts /schistocytes --> abx and other meds have been reviewed --> ok for ppx if plt >50k w/ either heparin or lovenox --> Transfuse if Plt < 20k and fever, or if Plt < 10k without fever --> plt 143-->115-->98 --> abx ctx # Anemia of iron deficiency, unspecified rule out gi bleed --> obtain a anemia panel, has been ordered --> will/have begun on iv iron and continue x 5 doses --> review if occult blood is + (review this to make sure +). Can consider gi eval --> hgb goal is >7, transfuse as needed --> trend CBC daily to make sure no major acute drop --> no evidence of hemolysis noted --> hgb 8 # Coagulopathy likely due to covid19++ in adition to vit k depletion --> have jamilah Abaddmitriyzia, will give ffp and vitk --> recheck inr / ptt after surgery # Acute febrile illness due to covid19+++ --> due to Suspected 2019-nCoV infection -> on abx --> steriods ahve been given # Atypical pneumonia # Hypernatremia # Hypoglycemia # E..coli sepsis # COVID 19 pneumonia # Hypertension # renal failure # Bipolar disorder # Asthma # Dvt ppx heparin sq The timing of this note does not necessarily reflect the time of the patient was seen. Greatly appreciate consultation. Subjective Cardiovascular: Denies: no symptoms, chest pain, edema, irregular heart rate, lightheadedness, palpitations, syncope, other Respiratory: Denies: no symptoms, cough, shortness of breath, SOB with excertion, SOB at rest, sputum, wheezing, other Gastrointestinal/Abdominal: Denies: no symptoms, abdomen distended, abdominal pain, black stools, tarry stools, blood in stool, constipated, diarrhea, difficulty swallowing, nausea, poor appetite, poor fluid intake, rectal bleeding , vomiting, other Genitourinary: Denies: no symptoms, burning, discharge, frequency, flank pain, hematuria, incontinence, pain, urgency, other Neurologic/Psychiatric: Denies: no symptoms, anxiety, depressed, emotional problems, headache, numbness, paresthesia, pre-existing deficit, seizure, tingling, tremors, weakness, other Hematologic/Lymphatic: Denies: no symptoms, anemia, easy bleeding, easy bruising, adenopathy, other Allergies: Coded Allergies: IBUPROFEN (Verified Allergy, Unknown, 12/20/19) Subjective 12/24 abdominal mild pain with ttp, to see by surg for discussion re surgery today Objective Objective Current Medications Medications (Trade) Dose Ordered Sig/Venita Route PRN Reason Start Time Stop Time Status Last Admin Dose Admin Benztropine Mesylate (Cogentin) 2 mg BID ORAL 12/21/19 09:00 01/20/20 08:59 12/24/19 08:55 Ceftriaxone Sodium 1 gm/ Dextrose 55 ml @ 110 mls/hr Q24H IVPB 12/23/19 12:00 12/30/19 11:59 12/24/19 12:00 Dexamethasone Sodium Phosphate (Decadron 10mg/ ml Inj) 6 mg DAILY IV 12/24/19 09:00 03/23/20 08:59 12/24/19 08:55 Dextrose 1,000 ml @ 125 mls/hr Q8H IV 12/23/19 08:15 01/22/20 08:14 12/25/19 00:15 Divalproex Sodium (Depakote ER) 500 mg DAILY ORAL 12/21/19 09:00 01/20/20 08:59 12/24/19 08:56 Docusate Sodium (Colace) 100 mg THREE TIMES A DAY ORAL 12/21/19 13:00 01/20/20 08:59 12/24/19 08:56 Haloperidol (Haldol) 5 mg TID ORAL 12/23/19 14:00 02/04/20 13:59 12/24/19 08:56 Heparin Sodium (Porcine) (Heparin 5000 units/ml) 5,000 units EVERY 12 HOURS SUBQ 12/21/19 09:00 02/04/20 08:59 12/23/19 21:02 Hydralazine HCl (Apresoline) 10 mg Q4H PRN IV Blood pressure over 160 systol 12/21/19 10:45 03/20/20 10:44 Lorazepam (Ativan 2mg/ml 1ml) 1 mg Q4H PRN IV For Anxiety 12/24/19 10:30 12/31/19 10:29 12/24/19 10:33 Lorazepam (Ativan) 1 mg Q6H PRN ORAL Agitation 12/21/19 14:15 12/28/19 14:14 12/22/19 23:00 Pantoprazole (Protonix) 40 mg EVERY 12 HOURS ORAL 12/21/19 10:30 01/20/20 10:29 12/24/19 21:47 Ziprasidone (Geodon) 40 mg Q12HR ORAL 12/21/19 21:00 02/04/20 20:59 12/24/19 21:47 Last 24 Hour Vital Signs Date Time Temp Pulse Resp B/P (MAP) Pulse Ox O2 Delivery O2 Flow Rate FiO2 12/25/19 04:00 96.5 101 19 123/74 (90) 98 12/25/19 04:00 100 12/25/19 04:00 Nasal Cannula 2.0 12/25/19 00:00 Nasal Cannula 2.0 12/25/19 00:00 98.6 98 19 117/76 (90) 98 12/24/19 20:00 Nasal Cannula 2.0 12/24/19 20:00 108 12/24/19 20:00 98.6 101 19 123/74 (90) 98 12/24/19 16:00 97.9 110 16 116/70 (85) 98 12/24/19 16:00 Nasal Cannula 2.0 12/24/19 15:55 77 12/24/19 12:00 88 12/24/19 12:00 Nasal Cannula 2.0 12/24/19 12:00 98.2 116 20 124/84 (97) 99 12/24/19 08:00 97.3 111 18 122/77 (92) 97 12/24/19 08:00 116 12/24/19 08:00 Nasal Cannula 2.0 12/24/19 04:00 97.6 109 20 111/66 (81) 98 12/24/19 04:00 Nasal Cannula 2.0 12/24/19 03:36 84 12/24/19 00:00 124 12/24/19 00:00 Nasal Cannula 2.0 12/23/19 20:00 97.9 110 20 120/84 (96) 91 12/23/19 20:00 Nasal Cannula 2.0 12/23/19 16:00 97.9 110 20 129/83 (98) 100 12/23/19 16:00 Nasal Cannula 2.0 12/23/19 16:00 81 12/23/19 12:00 97.9 121 20 120/81 (94) 98 12/23/19 12:00 Nasal Cannula 2.0 12/23/19 12:00 118 12/23/19 08:00 97.2 135 20 128/93 (105) 98 12/23/19 08:00 131 12/23/19 08:00 Nasal Cannula 2.0 Intake and Output 12/24/19 12/25/19 19:00 07:00 Intake Total 1027.91 ml 200 ml Output Total 1400 ml 1200 ml Balance -372.09 ml -1000 ml Intake Oral 200 ml 200 ml IV Total 827.91 ml Output Urine Total 1400 ml 1200 ml # Bowel Movements 2 Labs Test 12/22/19 07:51 12/22/19 08:05 12/22/19 12:33 12/22/19 17:58 White Blood Count 10.7 K/UL (4.8-10.8) Red Blood Count 2.80 M/UL (4.20-5.40) Hemoglobin 9.3 G/DL (12.0-16.0) Hematocrit 31.8 % (37.0-47.0) Mean Corpuscular Volume 113 FL (80-99) Mean Corpuscular Hemoglobin 33.1 PG (27.0-31.0) Mean Corpuscular Hemoglobin Concent 29.2 G/DL (32.0-36.0) Red Cell Distribution Width 14.9 % (11.6-14.8) Platelet Count 106 K/UL (150-450) Mean Platelet Volume 6.4 FL (6.5-10.1) Neutrophils (%) (Auto) % (45.0-75.0) Lymphocytes (%) (Auto) % (20.0-45.0) Monocytes (%) (Auto) % (1.0-10.0) Eosinophils (%) (Auto) % (0.0-3.0) Basophils (%) (Auto) % (0.0-2.0) Differential Total Cells Counted 100 Neutrophils % (Manual) 70 % (45-75) Lymphocytes % (Manual) 25 % (20-45) Monocytes % (Manual) 5 % (1-10) Eosinophils % (Manual) 0 % (0-3) Basophils % (Manual) 0 % (0-2) Band Neutrophils 0 % (0-8) Platelet Estimate Decreased Platelet Morphology Normal Hypochromasia 1+ Anisocytosis 1+ Macrocytosis 1+ Sodium Level 153 MMOL/L (136-145) Potassium Level 4.2 MMOL/L (3.5-5.1) Chloride Level 119 MMOL/L (98-107) Carbon Dioxide Level 27 MMOL/L (21-32) Anion Gap 7 mmol/L (5-15) Blood Urea Nitrogen 20 mg/dL (7-18) Creatinine 1.5 MG/DL (0.55-1.30) Estimat Glomerular Filtration Rate 44.1 mL/min (>60) Glucose Level 219 MG/DL (74-106) Uric Acid 7.2 MG/DL (2.6-7.2) Calcium Level 6.3 MG/DL (8.5-10.1) Phosphorus Level 2.2 MG/DL (2.5-4.9) Magnesium Level 1.9 MG/DL (1.8-2.4) Total Bilirubin 0.2 MG/DL (0.2-1.0) Aspartate Amino Transf (AST/SGOT) 33 U/L (15-37) Alanine Aminotransferase (ALT/SGPT) 13 U/L (12-78) Alkaline Phosphatase 109 U/L (46-116) C-Reactive Protein, Quantitative 19.6 mg/dL (0.00-0.90) Pro-B-Type Natriuretic Peptide 2133 pg/mL (0-125) Total Protein 5.4 G/DL (6.4-8.2) Albumin 1.2 G/DL (3.4-5.0) Globulin 4.2 g/dL Albumin/Globulin Ratio 0.3 (1.0-2.7) POC Whole Blood Glucose 140 MG/DL (74-106) Test 12/23/19 04:31 12/23/19 05:18 12/23/19 05:49 12/23/19 07:42 White Blood Count 8.1 K/UL (4.8-10.8) Red Blood Count 2.84 M/UL (4.20-5.40) Hemoglobin 9.3 G/DL (12.0-16.0) Hematocrit 31.7 % (37.0-47.0) Mean Corpuscular Volume 112 FL (80-99) Mean Corpuscular Hemoglobin 32.8 PG (27.0-31.0) Mean Corpuscular Hemoglobin Concent 29.4 G/DL (32.0-36.0) Red Cell Distribution Width 14.7 % (11.6-14.8) Platelet Count 115 K/UL (150-450) Mean Platelet Volume 7.0 FL (6.5-10.1) Neutrophils (%) (Auto) % (45.0-75.0) Lymphocytes (%) (Auto) % (20.0-45.0) Monocytes (%) (Auto) % (1.0-10.0) Eosinophils (%) (Auto) % (0.0-3.0) Basophils (%) (Auto) % (0.0-2.0) Sodium Level 158 MMOL/L (136-145) Potassium Level 6.0 MMOL/L (3.5-5.1) Chloride Level 124 MMOL/L (98-107) Carbon Dioxide Level 27 MMOL/L (21-32) Anion Gap 8 mmol/L (5-15) Blood Urea Nitrogen 17 mg/dL (7-18) Creatinine 1.6 MG/DL (0.55-1.30) Estimat Glomerular Filtration Rate 40.8 mL/min (>60) Glucose Level 47 MG/DL (74-106) Calcium Level 6.9 MG/DL (8.5-10.1) Phosphorus Level 3.7 MG/DL (2.5-4.9) Magnesium Level 2.0 MG/DL (1.8-2.4) Total Bilirubin 0.4 MG/DL (0.2-1.0) Aspartate Amino Transf (AST/SGOT) 58 U/L (15-37) Alanine Aminotransferase (ALT/SGPT) 17 U/L (12-78) Alkaline Phosphatase 131 U/L (46-116) Troponin I 0.003 ng/mL (0.000-0.056) Total Protein 6.2 G/DL (6.4-8.2) Albumin 1.2 G/DL (3.4-5.0) Globulin 5.0 g/dL Albumin/Globulin Ratio 0.2 (1.0-2.7) Urine Random Sodium 25 mmol/L (20-110) Test 12/23/19 08:02 12/23/19 09:41 12/23/19 10:30 12/23/19 12:40 Potassium Level 3.4 MMOL/L (3.5-5.1) Test 12/23/19 17:36 12/24/19 01:51 12/24/19 06:29 12/24/19 12:00 POC Whole Blood Glucose 104 MG/DL (74-106) 86 MG/DL (74-106) Sodium Level 168 MMOL/L (136-145) Potassium Level 3.9 MMOL/L (3.5-5.1) Chloride Level 130 MMOL/L (98-107) Carbon Dioxide Level 30 MMOL/L (21-32) Anion Gap 8 mmol/L (5-15) Blood Urea Nitrogen 13 mg/dL (7-18) Creatinine 1.4 MG/DL (0.55-1.30) Estimat Glomerular Filtration Rate 47.6 mL/min (>60) Glucose Level 172 MG/DL (74-106) Calcium Level 7.1 MG/DL (8.5-10.1) Phosphorus Level 2.9 MG/DL (2.5-4.9) Magnesium Level 1.9 MG/DL (1.8-2.4) Total Bilirubin 0.3 MG/DL (0.2-1.0) Aspartate Amino Transf (AST/SGOT) 29 U/L (15-37) Alanine Aminotransferase (ALT/SGPT) 17 U/L (12-78) Alkaline Phosphatase 112 U/L (46-116) Total Protein 5.5 G/DL (6.4-8.2) Albumin 1.1 G/DL (3.4-5.0) Globulin 4.4 g/dL Albumin/Globulin Ratio 0.2 (1.0-2.7) HIV (1&2) Antibody Rapid Negative (NEGATIVE) Test 12/25/19 04:46 White Blood Count 9.0 K/UL (4.8-10.8) Red Blood Count 2.45 M/UL (4.20-5.40) Hemoglobin 8.0 G/DL (12.0-16.0) Hematocrit 27.2 % (37.0-47.0) Mean Corpuscular Volume 111 FL (80-99) Mean Corpuscular Hemoglobin 32.9 PG (27.0-31.0) Mean Corpuscular Hemoglobin Concent 29.6 G/DL (32.0-36.0) Red Cell Distribution Width 14.8 % (11.6-14.8) Platelet Count 98 K/UL (150-450) Mean Platelet Volume 6.7 FL (6.5-10.1) Neutrophils (%) (Auto) % (45.0-75.0) Lymphocytes (%) (Auto) % (20.0-45.0) Monocytes (%) (Auto) % (1.0-10.0) Eosinophils (%) (Auto) % (0.0-3.0) Basophils (%) (Auto) % (0.0-2.0) Prothrombin Time 15.6 SEC (9.30-11.50) Prothromb Time International Ratio 1.5 (0.9-1.1) Activated Partial Thromboplast Time 34 SEC (23-33) Sodium Level 167 MMOL/L (136-145) Potassium Level 4.1 MMOL/L (3.5-5.1) Chloride Level 131 MMOL/L (98-107) Carbon Dioxide Level 28 MMOL/L (21-32) Anion Gap 9 mmol/L (5-15) Blood Urea Nitrogen 10 mg/dL (7-18) Creatinine 1.3 MG/DL (0.55-1.30) Estimat Glomerular Filtration Rate 51.9 mL/min (>60) Glucose Level 64 MG/DL (74-106) Calcium Level 7.3 MG/DL (8.5-10.1) Total Bilirubin 0.2 MG/DL (0.2-1.0) Aspartate Amino Transf (AST/SGOT) 29 U/L (15-37) Alanine Aminotransferase (ALT/SGPT) 14 U/L (12-78) Alkaline Phosphatase 101 U/L (46-116) C-Reactive Protein, Quantitative 12.9 mg/dL (0.00-0.90) Total Protein 5.3 G/DL (6.4-8.2) Albumin 1.0 G/DL (3.4-5.0) Globulin 4.3 g/dL Albumin/Globulin Ratio 0.2 (1.0-2.7) Amylase Level 13 U/L (25-115) Lipase 49 U/L (73-393) Height (Feet): 5 Height (Inches): 4.00 Weight (Pounds): 166 Objective Physical Exam: Vitals: reviewed General: NAD HEENT: nc, at Neck: supple Chest: clear breath sounds bilaterally Cardiovascular: RRR, no s3, s4 Abdomen: soft, nontender, ttp in upper quands Extremities: no cce, normal range of motion Neuro: alert and oriented Charanjit Sandoval MD Dec 25, 2019 06:59
[2019-12-25] MEDS ORDERED: Sterile Water Irrig 1000ml IRRIG ONE (07:00)
[2019-12-25] MEDS ORDERED: NS Irrig 1000ml ONE (07:00)
--- NOTE | 2019-12-25 07:15 | NUR ---
NURSE NOTES: RECEIVED REPORT FROM [facility] [employer]. REC,D PT ON DROPLET PRECAUTION ISOLATION ROOM POSITIVE COVID -19. PT AWAKE AND ALERT TO NAME ONLY VERY CONFUSED. PT WITH BILAT SOFT WRIST RESTRAINTS IN PLACE. PT IS NPO SCHEDULE VENTRAL INCARCERATED HERNIA REPAIR WITH MESH,HELD A.M P.O MEDICATIONS . PT PULL OUT THE IV,S FROM PREVIOUS SHIFT.FULL BODY ASSESSMENT DONE. PLACED A TELEPHONE CALL TO DR WELSH AND MADE HIM AWARE & NOTIFIED REGARDING PLT98 ANG HGB 8.0, Na + 167. DR WELSH STATED THAT IS AWARE. WILL CONT TO MONITOR.
--- NOTE | 2019-12-25 07:52 | NUR ---
HAND-OFF: Report given to Omkar Miller RN. Pt in stable condition.
--- NOTE | 2019-12-25 08:27 | General Progress Note ---
Assessment/Plan Problem List: (1) UTI (urinary tract infection) ICD Codes: N39.0 - Urinary tract infection, site not specified SNOMED: 60451863 (2) Malnutrition ICD Codes: E46 - Unspecified protein-calorie malnutrition SNOMED: 96837805 (3) Renal failure ICD Codes: N19 - Unspecified kidney failure SNOMED: 64769109 (4) HTN (hypertension) ICD Codes: I10 - Essential (primary) hypertension SNOMED: 62846387 (5) Hypoglycemia ICD Codes: E16.2 - Hypoglycemia, unspecified SNOMED: 732603728 (6) Hypernatremia ICD Codes: E87.0 - Hyperosmolality and hypernatremia SNOMED: 568986658 (7) Suspected 2019-nCoV infection ICD Codes: Z20.828 - Contact with and (suspected) exposure to other viral communicable diseases SNOMED: 680792499 Status: unchanged Assessment/Plan: o2 pulm tx abx pt diet cbc bmp am possible sx Subjective Constitutional: Reports: weakness Allergies: Coded Allergies: IBUPROFEN (Verified Allergy, Unknown, 12/20/19) All Systems: reviewed and negative except above Subjective o2nc calm in bed Objective Last 24 Hour Vital Signs Date Time Temp Pulse Resp B/P (MAP) Pulse Ox O2 Delivery O2 Flow Rate FiO2 12/25/19 08:00 97.0 97 20 125/80 (95) 98 12/25/19 04:00 96.5 101 19 123/74 (90) 98 12/25/19 04:00 100 12/25/19 04:00 Nasal Cannula 2.0 12/25/19 00:00 Nasal Cannula 2.0 12/25/19 00:00 98.6 98 19 117/76 (90) 98 12/24/19 20:00 Nasal Cannula 2.0 12/24/19 20:00 108 12/24/19 20:00 98.6 101 19 123/74 (90) 98 12/24/19 16:00 97.9 110 16 116/70 (85) 98 12/24/19 16:00 Nasal Cannula 2.0 12/24/19 15:55 77 12/24/19 12:00 88 12/24/19 12:00 Nasal Cannula 2.0 12/24/19 12:00 98.2 116 20 124/84 (97) 99 Intake and Output 12/24/19 12/25/19 19:00 07:00 Intake Total 1027.91 ml 200 ml Output Total 1400 ml 1200 ml Balance -372.09 ml -1000 ml Intake Oral 200 ml 200 ml IV Total 827.91 ml Output Urine Total 1400 ml 1200 ml # Bowel Movements 2 Laboratory Tests 12/24/19 12:00: Sodium Level 168*H, Potassium Level 3.9, Chloride Level 130H, Carbon Dioxide Level 30, Anion Gap 8, Blood Urea Nitrogen 13, Creatinine 1.4H, Estimat Glomerular Filtration Rate 47.6, Glucose Level 172#H, Calcium Level 7.1L, Phosphorus Level 2.9, Magnesium Level 1.9, Total Bilirubin 0.3, Aspartate Amino Transf (AST/SGOT) 29, Alanine Aminotransferase (ALT/SGPT) 17, Alkaline Phosphatase 112, Total Protein 5.5L, Albumin 1.1L, Globulin 4.4, Albumin/ Globulin Ratio 0.2L, Hepatitis A IgM Antibody Negative, Hepatitis B Surface Antigen Negative, Hepatitis B Core IgM Antibody Negative, Hepatitis C Antibody 0.1, HIV (1&2) Antibody Rapid Negative 12/25/19 04:46: Sodium Level 167*H, Potassium Level 4.1, Chloride Level 131H, Carbon Dioxide Level 28, Anion Gap 9, Blood Urea Nitrogen 10, Creatinine 1.3, Estimat Glomerular Filtration Rate 51.9, Glucose Level 64#L, Calcium Level 7.3L, Total Bilirubin 0.2, Aspartate Amino Transf (AST/SGOT) 29, Alanine Aminotransferase ( ALT/SGPT) 14, Alkaline Phosphatase 101, Total Protein 5.3L, Albumin 1.0L, Globulin 4.3, Albumin/Globulin Ratio 0.2L, White Blood Count 9.0, Red Blood Count 2.45L, Hemoglobin 8.0L, Hematocrit 27.2L, Mean Corpuscular Volume 111H, Mean Corpuscular Hemoglobin 32.9H, Mean Corpuscular Hemoglobin Concent 29.6L, Red Cell Distribution Width 14.8, Platelet Count 98L, Mean Platelet Volume 6.7, Neutrophils (%) (Auto) , Lymphocytes (%) (Auto) , Monocytes (%) (Auto) , Eosinophils (%) (Auto) , Basophils (%) (Auto) , Neutrophils % (Manual) [Pending] , Lymphocytes % (Manual) [Pending], Platelet Estimate [Pending], Platelet Morphology [Pending], Erythrocyte Sedimentation Rate [Pending], Prothrombin Time 15.6H, Prothromb Time International Ratio 1.5H, Activated Partial Thromboplast Time 34H, C-Reactive Protein, Quantitative 12.9H, Amylase Level 13L , Lipase 49L Height (Feet): 5 Height (Inches): 4.00 Weight (Pounds): 166 General Appearance: lethargic EENT: normal ENT inspection Neck: normal alignment Cardiovascular: normal rate, regular rhythm Respiratory/Chest: no respiratory distress, no accessory muscle use Extremities: normal inspection Skin: normal pigmentation Ricky Potter DO Dec 25, 2019 08:27
[2019-12-25] MEDS: Heparin 5000 units/ml inj SUBQ SCH (09:00)
[2019-12-25] MEDS: Benztropine 1mg tab ORAL SCH ×2 (09:00→17:49)
[2019-12-25] MEDS: Ziprasidone 20mg cap ORAL SCH ×2 (09:00→20:19)
[2019-12-25] MEDS: Docusate 100mg cap ORAL SCH ×3 (09:00→17:49)
[2019-12-25] MEDS: Depakote ER 500mg tab ORAL SCH (09:00)
--- NOTE | 2019-12-25 09:16 | Surgery Progress Note ---
Surgery Progress Note Subjective Additional Comments CT reviewed ventral hernia bowel contents with proximal dilatation noted obstructive still unable to reduce at bedside and tender on manipulation discussed with family. plan for OR this afternoon Objective Last 24 Hour Vital Signs Date Time Temp Pulse Resp B/P (MAP) Pulse Ox O2 Delivery O2 Flow Rate FiO2 12/25/19 08:00 97.0 97 20 125/80 (95) 98 12/25/19 04:00 96.5 101 19 123/74 (90) 98 12/25/19 04:00 100 12/25/19 04:00 Nasal Cannula 2.0 12/25/19 00:00 Nasal Cannula 2.0 12/25/19 00:00 98.6 98 19 117/76 (90) 98 12/24/19 20:00 Nasal Cannula 2.0 12/24/19 20:00 108 12/24/19 20:00 98.6 101 19 123/74 (90) 98 12/24/19 16:00 97.9 110 16 116/70 (85) 98 12/24/19 16:00 Nasal Cannula 2.0 12/24/19 15:55 77 12/24/19 12:00 88 12/24/19 12:00 Nasal Cannula 2.0 12/24/19 12:00 98.2 116 20 124/84 (97) 99 I&O Intake and Output 12/24/19 12/25/19 19:00 07:00 Intake Total 1027.91 ml 200 ml Output Total 1400 ml 1200 ml Balance -372.09 ml -1000 ml Intake Oral 200 ml 200 ml IV Total 827.91 ml Output Urine Total 1400 ml 1200 ml # Bowel Movements 2 Cardiovascular: RSR Respiratory: decreased breath sounds Abdomen: soft, tenderness, decreased bowel sounds Extremities: no cyanosis Laboratory Tests Test 12/24/19 12:00 12/25/19 04:46 Sodium Level 168 MMOL/L (136-145) *H 167 MMOL/L (136-145) *H Potassium Level 3.9 MMOL/L (3.5-5.1) 4.1 MMOL/L (3.5-5.1) Chloride Level 130 MMOL/L (98-107) H 131 MMOL/L (98-107) H Carbon Dioxide Level 30 MMOL/L (21-32) 28 MMOL/L (21-32) Anion Gap 8 mmol/L (5-15) 9 mmol/L (5-15) Blood Urea Nitrogen 13 mg/dL (7-18) 10 mg/dL (7-18) Creatinine 1.4 MG/DL (0.55-1.30) H 1.3 MG/DL (0.55-1.30) Estimat Glomerular Filtration Rate 47.6 mL/min (>60) 51.9 mL/min (>60) Glucose Level 172 MG/DL (74-106) #H 64 MG/DL (74-106) #L Calcium Level 7.1 MG/DL (8.5-10.1) L 7.3 MG/DL (8.5-10.1) L Phosphorus Level 2.9 MG/DL (2.5-4.9) Magnesium Level 1.9 MG/DL (1.8-2.4) Total Bilirubin 0.3 MG/DL (0.2-1.0) 0.2 MG/DL (0.2-1.0) Aspartate Amino Transf (AST/SGOT) 29 U/L (15-37) 29 U/L (15-37) Alanine Aminotransferase (ALT/SGPT) 17 U/L (12-78) 14 U/L (12-78) Alkaline Phosphatase 112 U/L (46-116) 101 U/L (46-116) Total Protein 5.5 G/DL (6.4-8.2) L 5.3 G/DL (6.4-8.2) L Albumin 1.1 G/DL (3.4-5.0) L 1.0 G/DL (3.4-5.0) L Globulin 4.4 g/dL 4.3 g/dL Albumin/Globulin Ratio 0.2 (1.0-2.7) L 0.2 (1.0-2.7) L Hepatitis A IgM Antibody Negative (Negative) Hepatitis B Surface Antigen Negative (Negative) Hepatitis B Core IgM Antibody Negative (Negative) Hepatitis C Antibody 0.1 s/co ratio (0.0-0.9) HIV (1&2) Antibody Rapid Negative (NEGATIVE) White Blood Count 9.0 K/UL (4.8-10.8) Red Blood Count 2.45 M/UL (4.20-5.40) L Hemoglobin 8.0 G/DL (12.0-16.0) L Hematocrit 27.2 % (37.0-47.0) L Mean Corpuscular Volume 111 FL (80-99) H Mean Corpuscular Hemoglobin 32.9 PG (27.0-31.0) H Mean Corpuscular Hemoglobin Concent 29.6 G/DL (32.0-36.0) L Red Cell Distribution Width 14.8 % (11.6-14.8) Platelet Count 98 K/UL (150-450) L Mean Platelet Volume 6.7 FL (6.5-10.1) Neutrophils (%) (Auto) % (45.0-75.0) Lymphocytes (%) (Auto) % (20.0-45.0) Monocytes (%) (Auto) % (1.0-10.0) Eosinophils (%) (Auto) % (0.0-3.0) Basophils (%) (Auto) % (0.0-2.0) Neutrophils % (Manual) Pending Lymphocytes % (Manual) Pending Platelet Estimate Pending Platelet Morphology Pending Erythrocyte Sedimentation Rate Pending Prothrombin Time 15.6 SEC (9.30-11.50) H Prothromb Time International Ratio 1.5 (0.9-1.1) H Activated Partial Thromboplast Time 34 SEC (23-33) H C-Reactive Protein, Quantitative 12.9 mg/dL (0.00-0.90) H Amylase Level 13 U/L (25-115) L Lipase 49 U/L (73-393) L Plan Problems: (1) Incarcerated ventral hernia Assessment & Plan: 54-year-old female multi-medical comorbidities prior midline incision unknown prior surgery but has developed a incisional hernia that seems to be incarcerated at this time. On examination I was able to note the hernia facial grimacing by patient upon manipulation able to only partially reduce it and have ordered a stat CT scan. Case was discussed with primary care physician medical teams. Patient COVID positive abnormal labs will optimize await imaging findings and plan for potential surgical intervention. N.p.o. IV fluids IV antibiotics trend labs we will follow with recommendations thank you for let me participate in patient's care discussed with family and medical team plan for reduction and repair patient high risk, covid +, labs noted Periumbilical ventral hernia, containing a loop of what is probably proximal ileum. Mildly distended fluid-filled small bowel loops leading into this may indicate a slight degree of small bowel obstruction. However, small bowel loops are also mildly dilated distally. Evidence of prior gastric surgery, cholecystectomy and appendectomy Evidence of prior abdominal wall hernia repair Fatty liver Diffuse edema of the subcutaneous fat Small to moderate left pleural effusion. Associated compressive atelectasis at the left lung base Bronchovascular groundglass opacities in the bilateral lungs, presumably related to stated clinical history of COVID infection Right renal cyst Saha catheter. Some retained urine within the bladder despite this Old healed right rib fracture. Degenerative changes of the right hip (2) Atypical pneumonia (3) Acute febrile illness (4) Hypernatremia (5) Hypoglycemia (6) Renal failure (7) Malnutrition (8) UTI (urinary tract infection) (9) HTN (hypertension) (10) Suspected 2019-nCoV infection Aleksey Vargas Dec 25, 2019 09:16
--- NOTE | 2019-12-25 09:19 | Pre-Procedure Note/Attestation ---
Pre-Procedure Note/Attestation Complete Prior to Procedure Procedure Narrative: ventral hernia repair with mesh Indications for Procedure Pre-Operative Diagnosis: incarcerated ventral hernia incisional Attestation I attest that I discussed the nature of the procedure; its benefits; risks and complications; and alternatives (and the risks and benefits of such alternatives ), prior to the procedure, with the patient (or the patient's legal retail service representative). I attest that, if there was a reasonable possibility of needing a blood transfusion, the patient (or the patient's legal retail service representative) was given the [facility] standardized written summary, pursuant to the Marcelino Celestino Blood Safety Act ([place] Health and Safety Code # 1645, as amended). I attest that I re-evaluated the patient just prior to the surgery and that there has been no change in the patient's H&P, except as documented below: Aleksey Vargas Dec 25, 2019 09:19
[2019-12-25] MEDS ORDERED: Phytonadione 10 mg/mL 1ml amp ONE (09:24)
[2019-12-25] MEDS ORDERED: Phytonadione 10 MG in D5W 55 ML IVPB ONE (10:00)
--- NOTE | 2019-12-25 10:00 | NUR ---
NURSE NOTES:ABLE TO INSERTED A NEW H.L G# 22 ON LT HAND. I.V SITE INTACT AT THIS TIME. WILL CONT TO MONITOR.
[2019-12-25] MEDS ORDERED: Bacitracin 50000 Units Vial ONE (10:31)
[2019-12-25] MEDS ORDERED: NeoSporin Gu Irrig 1ml Amp IRRIG ONE (10:31)
--- NOTE | 2019-12-25 10:32 | Infectious Diseases Prog Note ---
Assessment/Plan Assessment/Plan antibiotics : ceftriaxone A 1. e.coli sepsis 2. COVID 19 pneumonia on 2 liters, 99 percent saturation 3. fever improving 4. hypertension 5. renal failure 6. bipolar disorder 7. asthma 8. e.coli UTI P 1, continue ceftriaxone 4 more days 2. continue dexamethasone day 6 3. continue isolation Subjective Constitutional: Denies: fever, chills Respiratory: Denies: shortness of breath, dry cough Gastrointestinal/Abdominal: Denies: nausea, vomiting, diarrhea Musculoskeletal: Denies: pain Allergies: Coded Allergies: IBUPROFEN (Verified Allergy, Unknown, 12/20/19) Objective Last 24 Hour Vital Signs Date Time Temp Pulse Resp B/P (MAP) Pulse Ox O2 Delivery O2 Flow Rate FiO2 12/25/19 08:00 97.0 97 20 125/80 (95) 98 12/25/19 04:00 96.5 101 19 123/74 (90) 98 12/25/19 04:00 100 12/25/19 04:00 Nasal Cannula 2.0 12/25/19 00:00 Nasal Cannula 2.0 12/25/19 00:00 98.6 98 19 117/76 (90) 98 12/24/19 20:00 Nasal Cannula 2.0 12/24/19 20:00 108 12/24/19 20:00 98.6 101 19 123/74 (90) 98 12/24/19 16:00 97.9 110 16 116/70 (85) 98 12/24/19 16:00 Nasal Cannula 2.0 12/24/19 15:55 77 12/24/19 12:00 88 12/24/19 12:00 Nasal Cannula 2.0 12/24/19 12:00 98.2 116 20 124/84 (97) 99 Height (Feet): 5 Height (Inches): 4.00 Weight (Pounds): 166 Microbiology Date/Time Source Procedure Growth Status 12/23/19 05:18 Indwelling Cath Urine Culture - Preliminary Gram Negative Bacillus 1 Resulted Laboratory Tests Test 12/24/19 12:00 12/25/19 04:46 Sodium Level 168 MMOL/L (136-145) *H 167 MMOL/L (136-145) *H Potassium Level 3.9 MMOL/L (3.5-5.1) 4.1 MMOL/L (3.5-5.1) Chloride Level 130 MMOL/L (98-107) H 131 MMOL/L (98-107) H Carbon Dioxide Level 30 MMOL/L (21-32) 28 MMOL/L (21-32) Anion Gap 8 mmol/L (5-15) 9 mmol/L (5-15) Blood Urea Nitrogen 13 mg/dL (7-18) 10 mg/dL (7-18) Creatinine 1.4 MG/DL (0.55-1.30) H 1.3 MG/DL (0.55-1.30) Estimat Glomerular Filtration Rate 47.6 mL/min (>60) 51.9 mL/min (>60) Glucose Level 172 MG/DL (74-106) #H 64 MG/DL (74-106) #L Calcium Level 7.1 MG/DL (8.5-10.1) L 7.3 MG/DL (8.5-10.1) L Phosphorus Level 2.9 MG/DL (2.5-4.9) Magnesium Level 1.9 MG/DL (1.8-2.4) Total Bilirubin 0.3 MG/DL (0.2-1.0) 0.2 MG/DL (0.2-1.0) Aspartate Amino Transf (AST/SGOT) 29 U/L (15-37) 29 U/L (15-37) Alanine Aminotransferase (ALT/SGPT) 17 U/L (12-78) 14 U/L (12-78) Alkaline Phosphatase 112 U/L (46-116) 101 U/L (46-116) Total Protein 5.5 G/DL (6.4-8.2) L 5.3 G/DL (6.4-8.2) L Albumin 1.1 G/DL (3.4-5.0) L 1.0 G/DL (3.4-5.0) L Globulin 4.4 g/dL 4.3 g/dL Albumin/Globulin Ratio 0.2 (1.0-2.7) L 0.2 (1.0-2.7) L Hepatitis A IgM Antibody Negative (Negative) Hepatitis B Surface Antigen Negative (Negative) Hepatitis B Core IgM Antibody Negative (Negative) Hepatitis C Antibody 0.1 s/co ratio (0.0-0.9) HIV (1&2) Antibody Rapid Negative (NEGATIVE) White Blood Count 9.0 K/UL (4.8-10.8) Red Blood Count 2.45 M/UL (4.20-5.40) L Hemoglobin 8.0 G/DL (12.0-16.0) L Hematocrit 27.2 % (37.0-47.0) L Mean Corpuscular Volume 111 FL (80-99) H Mean Corpuscular Hemoglobin 32.9 PG (27.0-31.0) H Mean Corpuscular Hemoglobin Concent 29.6 G/DL (32.0-36.0) L Red Cell Distribution Width 14.8 % (11.6-14.8) Platelet Count 98 K/UL (150-450) L Mean Platelet Volume 6.7 FL (6.5-10.1) Neutrophils (%) (Auto) % (45.0-75.0) Lymphocytes (%) (Auto) % (20.0-45.0) Monocytes (%) (Auto) % (1.0-10.0) Eosinophils (%) (Auto) % (0.0-3.0) Basophils (%) (Auto) % (0.0-2.0) Differential Total Cells Counted 100 Neutrophils % (Manual) 83 % (45-75) H Lymphocytes % (Manual) 14 % (20-45) L Monocytes % (Manual) 3 % (1-10) Eosinophils % (Manual) 0 % (0-3) Basophils % (Manual) 0 % (0-2) Band Neutrophils 0 % (0-8) Platelet Estimate Decreased L Platelet Morphology Normal Hypochromasia 1+ Anisocytosis 1+ Macrocytosis 1+ Erythrocyte Sedimentation Rate 60 MM/HR (0-30) H Prothrombin Time 15.6 SEC (9.30-11.50) H Prothromb Time International Ratio 1.5 (0.9-1.1) H Activated Partial Thromboplast Time 34 SEC (23-33) H C-Reactive Protein, Quantitative 12.9 mg/dL (0.00-0.90) H Amylase Level 13 U/L (25-115) L Lipase 49 U/L (73-393) L Current Medications Medications (Trade) Dose Ordered Sig/Venita Route PRN Reason Start Time Stop Time Status Last Admin Dose Admin Benztropine Mesylate (Cogentin) 2 mg BID ORAL 7/4/20 09:00 01/20/20 08:59 12/24/19 08:55 Ceftriaxone Sodium 1 gm/ Dextrose 55 ml @ 110 mls/hr Q24H IVPB 12/23/19 12:00 12/30/19 11:59 12/24/19 12:00 Dexamethasone Sodium Phosphate (Decadron 10mg/ ml Inj) 6 mg DAILY IV 12/24/19 09:00 03/23/20 08:59 12/24/19 08:55 Dextrose 1,000 ml @ 125 mls/hr Q8H IV 12/23/19 08:15 01/22/20 08:14 12/25/19 00:15 Divalproex Sodium (Depakote ER) 500 mg DAILY ORAL 12/21/19 09:00 01/20/20 08:59 12/24/19 08:56 Docusate Sodium (Colace) 100 mg THREE TIMES A DAY ORAL 12/21/19 13:00 01/20/20 08:59 12/24/19 08:56 Haloperidol (Haldol) 5 mg TID ORAL 12/23/19 14:00 02/04/20 13:59 12/24/19 08:56 Heparin Sodium (Porcine) (Heparin 5000 units/ml) 5,000 units EVERY 12 HOURS SUBQ 12/21/19 09:00 02/04/20 08:59 12/23/19 21:02 Hydralazine HCl (Apresoline) 10 mg Q4H PRN IV Blood pressure over 160 systol 12/21/19 10:45 03/20/20 10:44 Lorazepam (Ativan 2mg/ml 1ml) 1 mg Q4H PRN IV For Anxiety 12/24/19 10:30 12/31/19 10:29 12/24/19 10:33 Lorazepam (Ativan) 1 mg Q6H PRN ORAL Agitation 12/21/19 14:15 12/28/19 14:14 12/22/19 23:00 Pantoprazole (Protonix) 40 mg EVERY 12 HOURS ORAL 12/21/19 10:30 01/20/20 10:29 12/24/19 21:47 Ziprasidone (Geodon) 40 mg Q12HR ORAL 12/21/19 21:00 02/04/20 20:59 12/24/19 21:47 Penny Montague MD Dec 25, 2019 10:32
[2019-12-25] MEDS: dexAMETHasone 10mg/ml Inj IV SCH (10:46)
[2019-12-25] MEDS: LORazepam Inj 2mg/ml 1ml IV PRN (10:46)
--- NOTE | 2019-12-25 10:54 | Pulmonology Progress Note ---
Subjective ROS Limited/Unobtainable: Yes Interval Events: None new Constitutional: Denies: fever, chills HEENT: Repors: no symptoms Respiratory: Reports: no symptoms Cardiovascular: Reports: no symptoms Gastrointestinal/Abdominal: Denies: nausea, vomiting, diarrhea Genitourinary: Reports: no symptoms Musculoskeletal: Denies: pain Allergies: Coded Allergies: IBUPROFEN (Verified Allergy, Unknown, 12/20/19) All Systems: reviewed and negative except above Objective Last 24 Hour Vital Signs Date Time Temp Pulse Resp B/P (MAP) Pulse Ox O2 Delivery O2 Flow Rate FiO2 12/25/19 08:00 97.0 97 20 125/80 (95) 98 12/25/19 04:00 96.5 101 19 123/74 (90) 98 12/25/19 04:00 100 12/25/19 04:00 Nasal Cannula 2.0 12/25/19 00:00 Nasal Cannula 2.0 12/25/19 00:00 98.6 98 19 117/76 (90) 98 12/24/19 20:00 Nasal Cannula 2.0 12/24/19 20:00 108 12/24/19 20:00 98.6 101 19 123/74 (90) 98 12/24/19 16:00 97.9 110 16 116/70 (85) 98 12/24/19 16:00 Nasal Cannula 2.0 12/24/19 15:55 77 12/24/19 12:00 88 12/24/19 12:00 Nasal Cannula 2.0 12/24/19 12:00 98.2 116 20 124/84 (97) 99 Intake and Output 12/24/19 12/25/19 19:00 07:00 Intake Total 1027.91 ml 200 ml Output Total 1400 ml 1200 ml Balance -372.09 ml -1000 ml Intake Oral 200 ml 200 ml IV Total 827.91 ml Output Urine Total 1400 ml 1200 ml # Bowel Movements 2 General Appearance: no acute distress HEENT: normocephalic Respiratory: chest wall non-tender Cardiovascular: normal peripheral pulses, normal rate Abdomen: normal bowel sounds Extremities: no cyanosis Microbiology Date/Time Source Procedure Growth Status 12/23/19 05:18 Indwelling Cath Urine Culture - Preliminary Gram Negative Bacillus 1 Resulted Laboratory Tests 12/24/19 12:00: Sodium Level 168*H, Potassium Level 3.9, Chloride Level 130H, Carbon Dioxide Level 30, Anion Gap 8, Blood Urea Nitrogen 13, Creatinine 1.4H, Estimat Glomerular Filtration Rate 47.6, Glucose Level 172#H, Calcium Level 7.1L, Phosphorus Level 2.9, Magnesium Level 1.9, Total Bilirubin 0.3, Aspartate Amino Transf (AST/SGOT) 29, Alanine Aminotransferase (ALT/SGPT) 17, Alkaline Phosphatase 112, Total Protein 5.5L, Albumin 1.1L, Globulin 4.4, Albumin/ Globulin Ratio 0.2L, Hepatitis A IgM Antibody Negative, Hepatitis B Surface Antigen Negative, Hepatitis B Core IgM Antibody Negative, Hepatitis C Antibody 0.1, HIV (1&2) Antibody Rapid Negative 12/25/19 04:46: Sodium Level 167*H, Potassium Level 4.1, Chloride Level 131H, Carbon Dioxide Level 28, Anion Gap 9, Blood Urea Nitrogen 10, Creatinine 1.3, Estimat Glomerular Filtration Rate 51.9, Glucose Level 64#L, Calcium Level 7.3L, Total Bilirubin 0.2, Aspartate Amino Transf (AST/SGOT) 29, Alanine Aminotransferase ( ALT/SGPT) 14, Alkaline Phosphatase 101, Total Protein 5.3L, Albumin 1.0L, Globulin 4.3, Albumin/Globulin Ratio 0.2L, White Blood Count 9.0, Red Blood Count 2.45L, Hemoglobin 8.0L, Hematocrit 27.2L, Mean Corpuscular Volume 111H, Mean Corpuscular Hemoglobin 32.9H, Mean Corpuscular Hemoglobin Concent 29.6L, Red Cell Distribution Width 14.8, Platelet Count 98L, Mean Platelet Volume 6.7, Neutrophils (%) (Auto) , Lymphocytes (%) (Auto) , Monocytes (%) (Auto) , Eosinophils (%) (Auto) , Basophils (%) (Auto) , Differential Total Cells Counted 100, Neutrophils % (Manual) 83H, Lymphocytes % (Manual) 14L, Monocytes % (Manual) 3, Eosinophils % (Manual) 0, Basophils % (Manual) 0, Band Neutrophils 0, Platelet Estimate DecreasedL, Platelet Morphology Normal, Hypochromasia 1+, Anisocytosis 1+, Macrocytosis 1+, Erythrocyte Sedimentation Rate 60H, Prothrombin Time 15.6H, Prothromb Time International Ratio 1.5H, Activated Partial Thromboplast Time 34H, C-Reactive Protein, Quantitative 12.9H , Amylase Level 13L, Lipase 49L Current Medications Medications (Trade) Dose Ordered Sig/Venita Route PRN Reason Start Time Stop Time Status Last Admin Dose Admin Benztropine Mesylate (Cogentin) 2 mg BID ORAL 12/21/19 09:00 01/20/20 08:59 12/24/19 08:55 Ceftriaxone Sodium 1 gm/ Dextrose 55 ml @ 110 mls/hr Q24H IVPB 12/23/19 12:00 12/30/19 11:59 12/24/19 12:00 Dexamethasone Sodium Phosphate (Decadron 10mg/ ml Inj) 6 mg DAILY IV 12/24/19 09:00 03/23/20 08:59 12/25/19 10:46 Dextrose 1,000 ml @ 125 mls/hr Q8H IV 12/23/19 08:15 01/22/20 08:14 12/25/19 08:15 Divalproex Sodium (Depakote ER) 500 mg DAILY ORAL 12/21/19 09:00 01/20/20 08:59 12/24/19 08:56 Docusate Sodium (Colace) 100 mg THREE TIMES A DAY ORAL 12/21/19 13:00 01/20/20 08:59 12/24/19 08:56 Haloperidol (Haldol) 5 mg TID ORAL 12/23/19 14:00 02/04/20 13:59 12/24/19 08:56 Heparin Sodium (Porcine) (Heparin 5000 units/ml) 5,000 units EVERY 12 HOURS SUBQ 12/21/19 09:00 02/04/20 08:59 12/23/19 21:02 Hydralazine HCl (Apresoline) 10 mg Q4H PRN IV Blood pressure over 160 systol 12/21/19 10:45 03/20/20 10:44 Lorazepam (Ativan 2mg/ml 1ml) 1 mg Q4H PRN IV For Anxiety 12/24/19 10:30 12/31/19 10:29 12/25/19 10:46 Lorazepam (Ativan) 1 mg Q6H PRN ORAL Agitation 12/21/19 14:15 12/28/19 14:14 12/22/19 23:00 Pantoprazole (Protonix) 40 mg EVERY 12 HOURS ORAL 12/21/19 10:30 01/20/20 10:29 12/24/19 21:47 Ziprasidone (Geodon) 40 mg Q12HR ORAL 12/21/19 21:00 02/04/20 20:59 12/24/19 21:47 Assessment/Plan Assessment/Plan IMPRESSION: 1. Confirmed COVID-19 pneumonia. 2. Hypernatremia. Improved 3. Psych disorder. 4. intermediate resident. 5. E Coli bacteremia 6. Incarcerated hernia DISCUSSION: Agree with current medications and care. Continue steroids. Continue medications. 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 Abx per ID Currently saturating well on 2L/min Cleared for OR per DR Vargas today Roberta Manzo Omar Syed MD Dec 25, 2019 10:54
--- NOTE | 2019-12-25 11:01 | Nephrology Progress Note ---
Assessment/Plan Problem List: (1) Renal failure Assessment: Acute on chronic (2) Suspected 2019-nCoV infection Assessment: Acute febrile illness (3) Hypernatremia Assessment: Improving (4) Hypoglycemia Assessment: Improving Assessment Renal failure, most likely chronic, with superimposed acute renal failure. Acute febrile illness, suspected COVID-19 infection. Hypernatremia, likely due to free water deficit. Hypoglycemia Severe hypoalbuminemia Atypical pneumonia Anemia History of psych disease Plan December 24: Renal parameters reviewed. Creatinine within normal limit. Serum sodium remains high. Patient due for hernia surgery today. Continue D5W IV fluid. December 23: Renal parameters reviewed. Creatinine down to 1.4. Serum sodium higher. Patient is being investigated for incarcerated ventral hernia by general surgery. Continue current IV fluid and monitor renal parameters. December 22: Will recheck serum potassium. If nonhemolyzed value still elevated will treat hyperkalemia. Discussed with DOT Leary. Continue the rest of the medication. Stop blood pressure medication due to low blood pressure, adjust the dose when the blood pressure improves PRN IV hydralazine for blood pressure spike D5W IV hydration Protonix p.o. Albumin IV bolus Monitor renal parameters Continue per consultants Saha catheter, urine studies Subjective ROS Limited/Unobtainable: No Constitutional: Reports: malaise, weakness Objective Objective Last 24 Hour Vital Signs Date Time Temp Pulse Resp B/P (MAP) Pulse Ox O2 Delivery O2 Flow Rate FiO2 12/25/19 08:00 97.0 97 20 125/80 (95) 98 12/25/19 04:00 96.5 101 19 123/74 (90) 98 12/25/19 04:00 100 12/25/19 04:00 Nasal Cannula 2.0 12/25/19 00:00 Nasal Cannula 2.0 12/25/19 00:00 98.6 98 19 117/76 (90) 98 12/24/19 20:00 Nasal Cannula 2.0 12/24/19 20:00 108 12/24/19 20:00 98.6 101 19 123/74 (90) 98 12/24/19 16:00 97.9 110 16 116/70 (85) 98 12/24/19 16:00 Nasal Cannula 2.0 12/24/19 15:55 77 12/24/19 12:00 88 12/24/19 12:00 Nasal Cannula 2.0 12/24/19 12:00 98.2 116 20 124/84 (97) 99 Intake and Output 12/24/19 12/25/19 19:00 07:00 Intake Total 1027.91 ml 200 ml Output Total 1400 ml 1200 ml Balance -372.09 ml -1000 ml Intake Oral 200 ml 200 ml IV Total 827.91 ml Output Urine Total 1400 ml 1200 ml # Bowel Movements 2 Laboratory Tests 12/24/19 12:00: Sodium Level 168*H, Potassium Level 3.9, Chloride Level 130H, Carbon Dioxide Level 30, Anion Gap 8, Blood Urea Nitrogen 13, Creatinine 1.4H, Estimat Glomerular Filtration Rate 47.6, Glucose Level 172#H, Calcium Level 7.1L, Phosphorus Level 2.9, Magnesium Level 1.9, Total Bilirubin 0.3, Aspartate Amino Transf (AST/SGOT) 29, Alanine Aminotransferase (ALT/SGPT) 17, Alkaline Phosphatase 112, Total Protein 5.5L, Albumin 1.1L, Globulin 4.4, Albumin/ Globulin Ratio 0.2L, Hepatitis A IgM Antibody Negative, Hepatitis B Surface Antigen Negative, Hepatitis B Core IgM Antibody Negative, Hepatitis C Antibody 0.1, HIV (1&2) Antibody Rapid Negative 12/25/19 04:46: Sodium Level 167*H, Potassium Level 4.1, Chloride Level 131H, Carbon Dioxide Level 28, Anion Gap 9, Blood Urea Nitrogen 10, Creatinine 1.3, Estimat Glomerular Filtration Rate 51.9, Glucose Level 64#L, Calcium Level 7.3L, Total Bilirubin 0.2, Aspartate Amino Transf (AST/SGOT) 29, Alanine Aminotransferase ( ALT/SGPT) 14, Alkaline Phosphatase 101, Total Protein 5.3L, Albumin 1.0L, Globulin 4.3, Albumin/Globulin Ratio 0.2L, White Blood Count 9.0, Red Blood Count 2.45L, Hemoglobin 8.0L, Hematocrit 27.2L, Mean Corpuscular Volume 111H, Mean Corpuscular Hemoglobin 32.9H, Mean Corpuscular Hemoglobin Concent 29.6L, Red Cell Distribution Width 14.8, Platelet Count 98L, Mean Platelet Volume 6.7, Neutrophils (%) (Auto) , Lymphocytes (%) (Auto) , Monocytes (%) (Auto) , Eosinophils (%) (Auto) , Basophils (%) (Auto) , Differential Total Cells Counted 100, Neutrophils % (Manual) 83H, Lymphocytes % (Manual) 14L, Monocytes % (Manual) 3, Eosinophils % (Manual) 0, Basophils % (Manual) 0, Band Neutrophils 0, Platelet Estimate DecreasedL, Platelet Morphology Normal, Hypochromasia 1+, Anisocytosis 1+, Macrocytosis 1+, Erythrocyte Sedimentation Rate 60H, Prothrombin Time 15.6H, Prothromb Time International Ratio 1.5H, Activated Partial Thromboplast Time 34H, C-Reactive Protein, Quantitative 12.9H , Amylase Level 13L, Lipase 49L Height (Feet): 5 Height (Inches): 4.00 Weight (Pounds): 166 General Appearance: no apparent distress Cardiovascular: tachycardia Respiratory/Chest: decreased breath sounds Abdomen: distended Brian Pichardo MD Dec 25, 2019 11:01
--- NOTE | 2019-12-25 12:02 | NUR ---
CASE MANAGEMENT: REVIEW SI: PNA . COVID-19 T 96.5 HR 126 RR 16 BP 116/70 SAT 98% NC/2L PLT CT 98 H/H 8.0/27.2 NA 167 GLUCOSE 64 IS: CEFTRIAXONE IV Q24HR DECADRON IV QD D5W IVF @ 125ML/HR TRANSFUSE FFP STEP DOWN UNIT STATUS DCP: PATIENT IS FROM [facility]
--- NOTE | 2019-12-25 12:12 | Diagnostic Imaging Report ---
Indication: Cough Technique: One view of the chest Comparison: 12/23/2019 Findings: Again demonstrated is peripheral infiltrate throughout much of the right lung. There is elevation the right hemidiaphragm again demonstrated. The left lung is clear. There is slight blunting of the left costophrenic sulcus, could indicate a small amount of pleural fluid Impression: Unchanged, over 2 days, findings as above.
[2019-12-25] MEDS ORDERED: Ketamine 500mg/10ml vial ONE (12:15)
[2019-12-25] MEDS ORDERED: ePHEDrine 50mg/ml Inj ONE (12:17)
[2019-12-25] MEDS ORDERED: Lidocaine 1% MPF 10mg/ml 5ml ONE (12:17)
[2019-12-25] MEDS ORDERED: Phenylephrine 10mg/ml Vial ONE (12:17)
--- NOTE | 2019-12-25 12:30 | NUR ---
NURSE NOTES:PT H.L ON LT HAND INFILTRATED,REMOVED H.L & APPLIED 2X2 DRY DSG. ATTEMPTED TWICE TO INSERTED A NEW H.L ,UNABLE TO INSERTED ALSO VASCULAR TEAM IS TRYING TO INSERTED A NEW PERIPHERAL IV. SWAPNIL CHRIS FROM OR DPT MADE AWARE & NOTIFIED ,UNABLE TO TRANSFUSE WITH 1 UNIT OF FFP AT THIS TIME, DUE TO NO IV ACCESS AT THIS TIME. WILL CONT TO MONITOR.
[2019-12-25] MEDS ORDERED: Rocuronium Bromide 100mg/10ml Inj IV ONE (12:41)
[2019-12-25] MEDS ORDERED: fentaNYL 100 mcg/2 mL IV ONE (12:51)
--- NOTE | 2019-12-25 12:51 | Cardiac Electrophysiology PN ---
Assessment/Plan Assessment/Plan 1. Hypotension. Likely due to dehydration as Sodium was 169 on arrival This is likely due to patient's underlying pneumonic process. Echocardiogram EF 65% 2. History of hypertension, on p.r.n. IV hydralazine. 3. Severe hypernatremia. Patient is on IV fluid per Dr. Pichardo. 4. COVID-19PNA in isolation. 5. K 6.0. Erroneous. Repeat 3.[address] showed ventral hernia bowel contents with proximal dilatation noted obstructive Unable to reduce at bedside and tender on manipulation by Dr Vargas. Plan for OR this afternoon INGRID RN Subjective Subjective Covid positive. Agitated and Echo EF 65%. Scheduled for ventral hernia surgery Objective Last 24 Hour Vital Signs Date Time Temp Pulse Resp B/P (MAP) Pulse Ox O2 Delivery O2 Flow Rate FiO2 12/25/19 08:00 Nasal Cannula 2.0 12/25/19 08:00 97.0 97 20 125/80 (95) 98 12/25/19 07:42 126 12/25/19 04:00 96.5 101 19 123/74 (90) 98 12/25/19 04:00 100 12/25/19 04:00 Nasal Cannula 2.0 12/25/19 00:00 Nasal Cannula 2.0 12/25/19 00:00 98.6 98 19 117/76 (90) 98 12/24/19 20:00 Nasal Cannula 2.0 12/24/19 20:00 108 12/24/19 20:00 98.6 101 19 123/74 (90) 98 12/24/19 16:00 97.9 110 16 116/70 (85) 98 12/24/19 16:00 Nasal Cannula 2.0 12/24/19 15:55 77 Intake and Output 12/24/19 12/25/19 19:00 07:00 Intake Total 1027.91 ml 200 ml Output Total 1400 ml 1200 ml Balance -372.09 ml -1000 ml Intake Oral 200 ml 200 ml IV Total 827.91 ml Output Urine Total 1400 ml 1200 ml # Bowel Movements 2 Laboratory Tests Test 12/25/19 04:46 12/25/19 12:19 White Blood Count 9.0 K/UL (4.8-10.8) Red Blood Count 2.45 M/UL (4.20-5.40) L Hemoglobin 8.0 G/DL (12.0-16.0) L Hematocrit 27.2 % (37.0-47.0) L Mean Corpuscular Volume 111 FL (80-99) H Mean Corpuscular Hemoglobin 32.9 PG (27.0-31.0) H Mean Corpuscular Hemoglobin Concent 29.6 G/DL (32.0-36.0) L Red Cell Distribution Width 14.8 % (11.6-14.8) Platelet Count 98 K/UL (150-450) L Mean Platelet Volume 6.7 FL (6.5-10.1) Neutrophils (%) (Auto) % (45.0-75.0) Lymphocytes (%) (Auto) % (20.0-45.0) Monocytes (%) (Auto) % (1.0-10.0) Eosinophils (%) (Auto) % (0.0-3.0) Basophils (%) (Auto) % (0.0-2.0) Differential Total Cells Counted 100 Neutrophils % (Manual) 83 % (45-75) H Lymphocytes % (Manual) 14 % (20-45) L Monocytes % (Manual) 3 % (1-10) Eosinophils % (Manual) 0 % (0-3) Basophils % (Manual) 0 % (0-2) Band Neutrophils 0 % (0-8) Platelet Estimate Decreased L Platelet Morphology Normal Hypochromasia 1+ Anisocytosis 1+ Macrocytosis 1+ Erythrocyte Sedimentation Rate 60 MM/HR (0-30) H Prothrombin Time 15.6 SEC (9.30-11.50) H Prothromb Time International Ratio 1.5 (0.9-1.1) H Activated Partial Thromboplast Time 34 SEC (23-33) H Sodium Level 167 MMOL/L (136-145) *H Potassium Level 4.1 MMOL/L (3.5-5.1) Chloride Level 131 MMOL/L (98-107) H Carbon Dioxide Level 28 MMOL/L (21-32) Anion Gap 9 mmol/L (5-15) Blood Urea Nitrogen 10 mg/dL (7-18) Creatinine 1.3 MG/DL (0.55-1.30) Estimat Glomerular Filtration Rate 51.9 mL/min (>60) Glucose Level 64 MG/DL (74-106) #L Calcium Level 7.3 MG/DL (8.5-10.1) L Total Bilirubin 0.2 MG/DL (0.2-1.0) Aspartate Amino Transf (AST/SGOT) 29 U/L (15-37) Alanine Aminotransferase (ALT/SGPT) 14 U/L (12-78) Alkaline Phosphatase 101 U/L (46-116) C-Reactive Protein, Quantitative 12.9 mg/dL (0.00-0.90) H Total Protein 5.3 G/DL (6.4-8.2) L Albumin 1.0 G/DL (3.4-5.0) L Globulin 4.3 g/dL Albumin/Globulin Ratio 0.2 (1.0-2.7) L Amylase Level 13 U/L (25-115) L Lipase 49 U/L (73-393) L POC Whole Blood Glucose Pending Microbiology Date/Time Source Procedure Growth Status 12/23/19 05:18 Indwelling Cath Urine Culture - Preliminary Gram Negative Bacillus 1 Resulted Objective HEAD AND NECK: no JVD. LUNGS: Coarse rhonchi. CARDIOVASCULAR: regular S1, S2. ABDOMEN: Soft. EXTREMITIES: No pitting edema. Steffen Mera MD Dec 25, 2019 12:51
--- NOTE | 2019-12-25 13:10 | NUR ---
NURSE NOTES:ESCORTED PT VIA BED ON STABLE CONDITION.PT ENDORSED TO BIJU UROLOGIST MD,FFP WILL BE GIVEN IN OR DPT.
--- NOTE | 2019-12-25 15:08 | Brief Operative Note ---
Immediate Post Operative Note Operative Note Pre-op Diagnosis: incarcerated ventral hernia incisional Procedure: 1 open incarcerated ventral hernia incisional repair 2 right rectus musculocutaneous flap 3 left rectus musculocutaneous flap 4 implantation of mesh Bard large double-sided 5 open lysis of adhesions 6 localization tissue transfer with use of skin flaps to close the abdominal wall defect Post-op Diagnosis: same as pre-op Surgeon: mulu Anesthesiologist: maty Anesthesia: general, local Specimen: yes Complications: none Condition: stable Fluids: see records Estimated Blood Loss: minimal Drains: none Implant(s) used?: Yes Aleksey Vargas Dec 25, 2019 15:07
--- NOTE | 2019-12-25 15:30 | NUR ---
NURSE NOTES: Received patient via hospital bed from OR accompanied by DOT Red and Suly Liu CRNA. Per Suly, FFP was given in the OR. Patient is lethargic, withdraws to deep pain. PERRLA. Patient is orally intubated with ETT 7.0 at 23cm on the lip with vent settings AC 14, TV 500, FiO2 100% and PEEP 5. Placed patient on continuous quality assurance monitor final, shows SR with HR 68; continuous pulse ox, patient is saturating 100% at this time. Blood pressure 111/68, RR 14, temp 93.0F rectally. Received patient with IV on left EJ, 18g, patent, asymptomatic. Blood glucose checked, 102mg/dL. Pulses are strong, regular, and palpable bilaterally on the radial, brachial, posterior tibial and dorsalis pedis. Left hand noted with dependent edema. Bilateral wrist restraints in place to avoid self extubation at this time. Placed NGT on the right nares, will order xray for tube placement confirmation. Saha catheter in place, received patient with 900ml clear, yellow urine output. Placed f/c bag to gravity. Skin alterations noted on the right buttocks, sacral and left heel DTI; photos taken per policy. Placed Optifoam dressing on right buttocks and sacral, and bilateral heel ; offloading. Placed patient on cheng hugger for low temperature. Safety precautions in place, bed is locked, alarmed, and in lowest position, side rails up x3, and call light placed within reach. Will continue to monitor patient and will continue plan of care per MDs orders.
--- NOTE | 2019-12-25 15:45 | Immediate Post-Op Evaluation ---
Immediate Post-Op Evalulation Immediate Post-Op Evalulation Procedure: Open , repair of incarcerated hernia Date of Evaluation: Dec 25, 2019 Time of Evaluation: 13:00 IV Fluids: 500 Estimated Blood Loss: 25 Urinary Output: 500 Blood Pressure Systolic: 111 Blood Pressure Diastolic: 55 Pulse Rate: 56 Respiratory Rate: 12 O2 Sat by Pulse Oximetry: 100 Nausea: No Vomiting: No Patient Status: ventilated - AC 100% 500 12 5 100% Hydration Status: adequate Drug: ancef Given Within 1 Hr of Incision: Yes Suly Liu CRNA Dec 25, 2019 15:45
--- NOTE | 2019-12-25 15:45 | NUR ---
NURSE NOTES: Left abdominal surgical dressing in place. No bleeding noted.
--- NOTE | 2019-12-25 15:58 | Anethesia Preoperative Eval ---
Anesthesia Pre-op PMH/ROS General Date of Evaluation: Dec 25, 2019 Time of Evaluation: 13:00 Anesthesiologist: casie ASA Score: ASA 4 Mallampati Score Class I : Soft palate, uvula, fauces, pillars visible Class II: Soft palate, uvula, fauces visible Class III: Soft palate, base of uvula visible Class IV: Only hard plate visible Mallampati Classification: Class II Surgeon: mulu Diagnosis: incarcerated ventral hernia Surgical Procedure: repair of incarcerated ventral hernia repair Anesthesia History: none Family History: no anesthesia problems Allergies: Coded Allergies: IBUPROFEN (Verified Allergy, Unknown, 12/20/19) Medications: see eMAR Patient NPO?: Yes NPO Date: Dec 25, 2019 NPO Time: 00:01 Past Medical History Cardiovascular: Denies: HTN, CAD, [place], valve dz, arrhythmia, other Pulmonary: Reports: other - pneumonia and postive covid; ; Denies: asthma, COPD, [place] Gastrointestinal/Genitourinary: Reports: CRI, other - acute renal failure; Denies: GERD, ESRD Neurologic/Psychiatric: Reports: dementia; Denies: CVA, depression/anxiety, TIA, other Endocrine: Reports: DM; Denies: hypothyroidism, steroids, other HEENT: Denies: cataract (L), cataract (R), glaucoma, [place] (L), [place] (R), other Hematology/Immune: Reports: anemia Musculoskeletal/Integumentary: Denies: OA, RA, DJD, DDD, edema, other Other: other - sepsis; hypernatremia PMH Narrative: see chart PSxH Narrative: gastric surgeon Anesthesia Pre-op Phys. Exam Physician Exam Last Vital Signs Date Time Temp Pulse Resp B/P (MAP) Pulse Ox O2 Delivery O2 Flow Rate FiO2 12/25/19 15:36 67 14 100 12/25/19 15:33 100 Mechanical Ventilator 12/25/19 12:00 2.0 12/25/19 08:00 97.0 125/80 (95) Constitutional: other - weak, reponsive to painful stimuli, received report that pt was combative and agitated. Neurologic: other - demented. soft restraints on Cardiovascular: RRR Respiratory: CTA Gastrointestinal: S/NT/ND Airway Exam Mallampati Classification 2 Mallampati Score: Class II MO: limited ROM: limited Dentures: no upper, no lower Anesthesia Pre-op A/P Labs Hematology Test 12/25/19 04:46 White Blood Count 9.0 K/UL (4.8-10.8) Red Blood Count 2.45 M/UL (4.20-5.40) L Hemoglobin 8.0 G/DL (12.0-16.0) L Hematocrit 27.2 % (37.0-47.0) L Mean Corpuscular Volume 111 FL (80-99) H Mean Corpuscular Hemoglobin 32.9 PG (27.0-31.0) H Mean Corpuscular Hemoglobin Concent 29.6 G/DL (32.0-36.0) L Red Cell Distribution Width 14.8 % (11.6-14.8) Platelet Count 98 K/UL (150-450) L Mean Platelet Volume 6.7 FL (6.5-10.1) Neutrophils (%) (Auto) % (45.0-75.0) Lymphocytes (%) (Auto) % (20.0-45.0) Monocytes (%) (Auto) % (1.0-10.0) Eosinophils (%) (Auto) % (0.0-3.0) Basophils (%) (Auto) % (0.0-2.0) Differential Total Cells Counted 100 Neutrophils % (Manual) 83 % (45-75) H Lymphocytes % (Manual) 14 % (20-45) L Monocytes % (Manual) 3 % (1-10) Eosinophils % (Manual) 0 % (0-3) Basophils % (Manual) 0 % (0-2) Band Neutrophils 0 % (0-8) Platelet Estimate Decreased L Platelet Morphology Normal Hypochromasia 1+ Anisocytosis 1+ Macrocytosis 1+ Erythrocyte Sedimentation Rate 60 MM/HR (0-30) H Coagulation Test 12/25/19 04:46 Prothrombin Time 15.6 SEC (9.30-11.50) H Prothromb Time International Ratio 1.5 (0.9-1.1) H Activated Partial Thromboplast Time 34 SEC (23-33) H Chemistry Test 12/25/19 04:46 12/25/19 12:19 Sodium Level 167 MMOL/L (136-145) *H Potassium Level 4.1 MMOL/L (3.5-5.1) Chloride Level 131 MMOL/L (98-107) H Carbon Dioxide Level 28 MMOL/L (21-32) Anion Gap 9 mmol/L (5-15) Blood Urea Nitrogen 10 mg/dL (7-18) Creatinine 1.3 MG/DL (0.55-1.30) Estimat Glomerular Filtration Rate 51.9 mL/min (>60) Glucose Level 64 MG/DL (74-106) #L Calcium Level 7.3 MG/DL (8.5-10.1) L Total Bilirubin 0.2 MG/DL (0.2-1.0) Aspartate Amino Transf (AST/SGOT) 29 U/L (15-37) Alanine Aminotransferase (ALT/SGPT) 14 U/L (12-78) Alkaline Phosphatase 101 U/L (46-116) C-Reactive Protein, Quantitative 12.9 mg/dL (0.00-0.90) H Total Protein 5.3 G/DL (6.4-8.2) L Albumin 1.0 G/DL (3.4-5.0) L Globulin 4.3 g/dL Albumin/Globulin Ratio 0.2 (1.0-2.7) L Amylase Level 13 U/L (25-115) L Lipase 49 U/L (73-393) L POC Whole Blood Glucose Pending Accucheck bs=83 Studies Pre-op Studies: EKG - ST, echo - 55% Risk Assessment & Plan Assessment: No acute changes in last 24 hours. Plan: Spoked with Dr. Vargas ragarding patient's condition. Pt is HIGH RISK with multiple co-morbidities.However, surgeon declared EMERGENCY will bring pt to OR. Dr. Vargas will start central line in the OR, possible A line with full Covid-19 precautions. Also, discussed with pt's POA and explained the risks of possible ICU admission intubated, possible blood transfusion, and A line/ central. Pt's family agreed. FULL CODE Status Change Before Surgery: No Pre-Antibiotics Drug: ancef Given Within 1 Hr of Incision: Yes Time Given: 13:40 Suly Liu DIRECTOR OF SEARCH ENGINE OPTIMIZATION Dec 25, 2019 15:58
[2019-12-25] MEDS ORDERED: cefTRIAXone 1 GM in D5W 55 ML IVPB SCH (16:00)
--- NOTE | 2019-12-25 16:00 | NUR ---
NURSE NOTES: PLACED A TELEPHONE CALL TO ICU AND REPORT GIVEN TO OTILIA CHRIS.PT S/P VENTRAL INCARCERATED HERNIA REPAIR WITH MESH DONE BY DR WELSH.
--- NOTE | 2019-12-25 16:15 | NUR ---
NURSE NOTES: Xray at bedside and also Dr Vargas at bedside, seen and assessed patient. Dr Vargas attempted to advance NGT per xray results. Per Dr Vargas, patient has a history gastric bypass, NGT was taken out. Patient remains NPO at this time. Received report from [facility] via telephone. Will continue to monitor.
--- NOTE | 2019-12-25 16:30 | Progress Note ---
DATE: 12/25/2019 SUBJECTIVE: This is a 54-year-old female patient. She basically has status post pneumonia but she has got extreme mood lability, agitation, and difficult to redirect on the unit that is why there was a daily psychiatric consultation. MENTAL STATUS EXAMINATION: This is a 54-year-old female. Appearance is disheveled. Attitude, irritable and agitated. Affect, guarded and restricted. Intellect poor. Mood, depressed and anxious. Motor activity, psychomotor agitation. Insight and judgment is poor. DIAGNOSIS: Schizoaffective, bipolar type. PLAN: I am going to treat this patient with a medication regimen of Haldol at a dose of 5 mg p.o. three times a day, Ativan 1 every 4 hours p.r.n. anxiety and agitation, Depakote 500 mg daily, Cogentin twice a day, Latuda at a dose 40 mg q.12 hours. A 20 minutes of reality-based supportive psychotherapy. Encouraged to interact appropriately with staff. A 20 minutes of cognitive behavioral therapy to help identify automatic negative thoughts, help convert negative thoughts to more positive thoughts to reduce depression, anxiety, mood lability. Chart reviewed and discussed with staff. Flip Burgos M.D. DR: Sveta JOB#: [id number] CC:
[2019-12-25] MEDS ORDERED: LORazepam Inj 2mg/ml 1ml IV PRN (16:38)
[2019-12-25] MEDS ORDERED: LORazepam 1mg tab ORAL PRN (16:38)
--- NOTE | 2019-12-25 16:40 | NUR ---
NURSE NOTES: Blood transfusion initiated at 1625 as ordered. BP 141/87 HR 62 temp 93.0 rectally. No transfusion reaction 15 minutes after start. RT at bedside, attempted to wean patient but unable to take breaths on her own at this time. RT titrated FiO2 at 40%, patient remains saturating 100% at this time. No distress noted. Will continue to monitor patient.
--- NOTE | 2019-12-25 16:45 | Diagnostic Imaging Report ---
Indication: Post nasogastric tube placement Technique: Supine view of the upper abdomen Comparison: Elevator Repair Mechanic image from abdomen pelvis CT dated 12/24/2019 Findings: There is a nasogastric tube, shaft making a hairpin loop in the distal esophagus, tip projected cephalad beyond the edge of the image. Small bowel loops are somewhat dilated, gas-filled. There are surgical clips in the right abdomen and a lower abdominal transverse staple line. Impression: Malposition of nasogastric tube. Patient's nurse and referring physician are already aware Mildly dilated small bowel loops. Probably represents postoperative ileus given evidence of recent surgery
--- NOTE | 2019-12-25 17:00 | NUR ---
NURSE NOTES: Episodes of bradycardia noted with HR noted 54bmp lowest. Patients temperature rechecked, 93.7 rectally. Will continue to monitor patient.
[2019-12-25] MEDS ORDERED: Tubing IV Secondary IV ONE (17:04)
--- NOTE | 2019-12-25 18:47 | NUR ---
NURSE NOTES: 1 unit of PRBC transfusion completed; no adverse reactions noted. Remains orally intubated with vent settings AC 14, TV 500, FiO2 40% and PEEP 5. Patient is saturating 100%. Patient is still drowsy but responds to deep pain, attempting to open eyes. PO medications held at this time. Bilateral soft wrist restraints in place to avoid self extubation. Safety precautions remains in place, bed locked, alarmed, and in lowest position, side rails up x3, and call light within reach. Will continue to monitor.
--- NOTE | 2019-12-25 19:00 | NUR ---
HAND-OFF: Report given to [facility]. Endorsed plan of care.
--- NOTE | 2019-12-25 19:01 | NUR ---
NURSE NOTES: Received patient from [facility] Johnson. Will continue plan of care.
--- NOTE | 2019-12-25 20:00 | NUR ---
NURSE NOTES: Received patient intubated s/p hernia repair with mesh. ETT 7.0 @ 23cm to the lipline to vent with settings AC:14, TV:500, FiO2:40%, PEEP:5. Patient is asleep. NPO status. Saha catheter intact and draining. Left IJ running D5W @ 125ml/hr, right hand 20g saline lock. ORE SAMPLER restraints on ROM and skin assessed. BP:108/60, HR:122, O2 sat:100%, RESP:20. Will continue to monitor.
[2019-12-25] MEDS: Pantoprazole Inj IVP SCH (20:34)
--- NOTE | 2019-12-25 21:30 | Operative Note - Dictated ---
DATE OF OPERATION: 12/25/2019 PREOPERATIVE DIAGNOSES: 1. Incarcerated incisional ventral hernia. 2. COVID positive. 3. Bowel obstruction. POSTOPERATIVE DIAGNOSES: 1. Incarcerated incisional ventral hernia. 2. COVID positive. 3. Bowel obstruction. OPERATION PERFORMED: 1. Open incarcerated incisional ventral hernia repair. 2. Right rectus musculocutaneous flap. 3. Left rectus musculocutaneous flap. 4. Implantation of mesh Bard large double-sided dual coated ventral hernia mesh. 5. Open lysis of adhesions. 6. Localized tissue transfer with use of skin flaps to close abdominal wall defect 10 cm x 10 cm. 7. left subclavian central line insertion ATTENDING SURGEON: Aleksey Vargas MD. ICU RN: None. ANESTHESIOLOGIST: Suly Liu CRNA. ANESTHESIA: General DIAL POLISHER plus local. ESTIMATED BLOOD LOSS: Minimal. IV FLUIDS: Please see anesthesia records. COMPLICATIONS: None. DRAINS: None. COUNTS: Sponge and needle count correct x2. SPECIMENS: Hernia sac sent to pathology for review. IMPLANTS: Bard large double-sided ventral hernia mesh. INDICATIONS FOR PROCEDURE: This is a 54-year-old female with multiple medical comorbidities, who presented to [facility] for evaluation, identified to be COVID positive and with a large abdominal mass, which was identified to be a ventral hernia that was not reducible and incarcerated. Patient had history of multiple surgeries prior appendectomy, cholecystectomy, gastric bypass, and a ventral hernia repair and she has recurred and currently causing obstruction. CT ordered, noticing early obstructive symptoms and imaging confirmed. Discussed with medical teams and the patient's family. Patient is COVID positive, multiple comorbidities, but given her condition and goals of care, family has agreed and consented for surgical intervention. OPERATIVE NOTE: Patient was taken to the operating room and placed on the operating table in supine position with bilateral arms out. All bony prominences were well padded. SCDs were placed. Preoperative time-out taken identifying patient, procedure, operative staff, surgical staff. General anesthesia was induced and patient was intubated. Of note, all COVID precautions were taken by the anesthesiologist staff and team in a negative pressure room given patient's COVID status. Once intubated and stable, it was noted that patient had very poor peripheral access and anesthesiologist did come across it for better venous access given the patient's complexity and planned surgery. Given the peripheral access identified and the lack thereof as well as the difficulty in peripheral access in this patient, decision was made to place a central line for the remainder of the procedure for patient's safety. A left subclavian central line was placed without complication. A finer needle was used and the left subclavian vein was cannulated on first stick. Good venous flow identified. A guidewire was placed over the needle and needle removed. A small skin incision was made. Dilator was used and following this, over the guidewire, the triple-lumen catheter was inserted without complication. The guidewire was removed and discarded. All 3 ports flushed and aspirated appropriately. Line was sutured in place. Dressings were applied. The abdomen was then clipped, prepped, and draped in standard surgical fashion. The hernia was identified and even with the patient under general anesthetic was unable to be reduced and clearly identified to be incarcerated in the inferior portion of patient's prior incision. The incision was made overlying the hernia defect and carried down through the hernia sac. Hernia sac was identified, opened, and entry into the abdomen obtained and bowel contents were noted. The bowel contents were edematous and the bowel was injected. Fortunately, the bowel was viable. At this time, it was clearly identified that there were significant adhesions around the hernia sac and the anterior abdominal wall. Therefore, proceeding with direct repair would not be possible especially for mesh implantation. Furthermore, the patient's abdominal wall despite being on general anesthetic relaxation with limited mobility and therefore significant tension. At this time, open lysis of adhesions was completed to allow 5 cm circumferentially around the patient's hernia for appropriate mesh placement. Following this, the bowel was gently dissected away from prior to the hernia sac where it was touched and bowel was reduced into the abdominal cavity without complication and the bowel was noted to be improving by the end of the procedure. At this time, the hernia sac was dissected down, sent off to pathology for review of hernia sac. The fascial edges were freshened up. Significant tension was identified and trying of primary closure and therefore right and left musculocutaneous rectus flaps were created by dividing the posterior rectus sheath and allowing the release of the anterior rectus sheath and the rectus muscle. The anterior rectus sheath and rectus muscle was medialized bilaterally on the right and left side and came together without tension once this separation and closure was achieved. At this time, we were able to implant a large Bard mesh dual coated into the abdomen and sutured it circumferentially around the defect site. Once this was complete, the fascial defect was reapproximated using 0 running Prolene suture. Satisfactory hernia repair with mesh using flap closure bilateral rectus muscle was completed without complication and without tension and in good fashion. The wound was irrigated and suctioned clean. There was a considerable subcutaneous defect size given the size of the patient's hernia and the hernia sac. At this time, decision made to do a localized tissue transfer to close the abdominal wall defect area. The subcutaneous tissue was mobilized off the anterior rectus sheath superiorly, inferiorly, and circumferentially. Once this was completed, subcutaneous tissue was brought together using 3-0 Vicryl sutures. Following this, a tension-free adequate repair of the abdominal wall defect was achieved using skin flap and subcutaneous tissue flap. Therefore, fortunately no drain placement was necessary and no large defect or seroma infection or potential adverse outcome given mesh placement was noted. The skin was then reapproximated using 3-0 Vicryl interrupted sutures followed by surgical benson followed by dressings. Local anesthetic was infiltrated throughout the procedure the patient's comfort. Patient tolerated the procedure well, was taken to the recovery ICU until able to be safely extubated once awake, alert, and respiratory drive improved. Aleksey Vargas M.D. DR: CAROL JOB#: [id number] CC: MILLY
--- NOTE | 2019-12-25 22:00 | NUR ---
NURSE NOTES: Patient is seen sleeping. Temp: 100.4 bear hugger off at the moment and will monitor. Left lower abdominal quadrant dressing dry and intact. BP:100/65, HR:116, RESP:14, O2sat:100%.
[2019-12-26] VITALS (37 sets, daily range): BP systolic 92–124; BP diastolic 55–100
--- NOTE | 2019-12-26 | NUR ---
NURSE NOTES: Reynaldo dozier taken off earlier for elevated temp. Currently temp 99.4F axillary. Pt repositioned.
--- NOTE | 2019-12-26 02:00 | NUR ---
NURSE NOTES: Patient is more awake. She is calm, nods head that she understands to not pull on lines and tubing. Explained to her the possibility of ETT removal later in the AM.
--- NOTE | 2019-12-26 04:00 | NUR ---
NURSE NOTES: Bed bath given, linens changed, turned and repositioned, suctioning and oral care provided. Patient is comfortable. Will continue to monitor.
[2019-12-26 05:26] LABS: BASOPHILS % (AUTO) 0.5 % (0.0-2.0); EOSINOPHILS % (AUTO) 0.1 % (0.0-3.0); HEMATOCRIT 27.8 % (37.0-47.0); HEMOGLOBIN 8.5 G/DL (12.0-16.0); LYMPHOCYTES % (AUTO) 19.9 % (20.0-45.0); MEAN CORPUSCULAR VOLUME 103 FL (80-99); MONOCYTES % (AUTO) 6.6 % (1.0-10.0); NEUTROPHILS % (AUTO) 72.9 % (45.0-75.0); PLATELET COUNT 125 K/UL (150-450); RED BLOOD COUNT 2.69 M/UL (4.20-5.40); RED CELL DISTRIBUTION WIDTH 17.6 % (11.6-14.8)
[2019-12-26 05:40] LABS: INR 1.3 (0.9-1.1)
[2019-12-26 05:46] LABS: ALANINE AMINOTRANSFERASE 15 U/L (12-78); ALBUMIN 1.1 G/DL (3.4-5.0); ALBUMIN/GLOBULIN RATIO 0.3 (1.0-2.7); ALKALINE PHOSPHATASE 92 U/L (46-116); ANION GAP 8 mmol/L (5-15); ASPARTATE AMINO TRANSFERASE 28 U/L (15-37); BILIRUBIN,TOTAL 0.3 MG/DL (0.2-1.0); BLOOD UREA NITROGEN 10 mg/dL (7-18); CARBON DIOXIDE 29 MMOL/L (21-32); CHLORIDE 129 MMOL/L (98-107); CREATININE 1.7 MG/DL (0.55-1.30); POTASSIUM 3.7 MMOL/L (3.5-5.1)
[2019-12-26 06:03] LABS: SODIUM 166 MMOL/L (136-145)
--- NOTE | 2019-12-26 07:13 | NUR ---
HAND-OFF: Report given to [facility] CORTES.
--- NOTE | 2019-12-26 07:20 | NUR ---
NURSE NOTES: Received report from [facility] Sheth. Patient awake and responsive to verbal, able to follow commands at this time. ETT 7.0/23cm at lip line with vent setting AC 14, VT 500, FiO2 40% and Peep 5. NPO status. Left EJ 18G intact, clean and running with D5W @ 125ml/hr. Right Hand 20G IV intact and clean. Bilateral soft wrist bands restraints on. Both hands are warm to touch. Kept dry, clean, comfortable and HOB>30. Will continue plan of care.
[2019-12-26] MEDS: dexAMETHasone 10mg/ml Inj IV SCH (08:30)
[2019-12-26] MEDS: Heparin 5000 units/ml inj SUBQ SCH ×2 (08:31→20:19)
[2019-12-26] MEDS: Pantoprazole Inj IVP SCH ×2 (08:31→20:19)
--- NOTE | 2019-12-26 08:53 | Infectious Diseases Prog Note ---
Assessment/Plan Assessment/Plan A 1. E.coli sepsis 2. COVID 19 pneumonia on 2 liters, 99 percent saturation 3. fever improving 4. hypertension 5. renal failure 6. bipolar disorder 7. asthma 8. Pseudomonas UTI 9. Incarcerated ventral hernia s/p surgery 10. Perioperative respiratory failure P 1, change ceftriaxone to Cefepime 2. continue isolation Subjective ROS Limited/Unobtainable: Yes Constitutional: Reports: fever, other - Yt=381.4 Respiratory: Reports: other - remain intubated after surgery Allergies: Coded Allergies: IBUPROFEN (Verified Allergy, Unknown, 12/20/19) Objective Last 24 Hour Vital Signs Date Time Temp Pulse Resp B/P (MAP) Pulse Ox O2 Delivery O2 Flow Rate FiO2 12/26/19 07:00 108 19 105/69 (81) 100 12/26/19 06:00 114 20 109/68 (82) 100 12/26/19 05:00 82 14 108/61 (77) 100 12/26/19 04:00 99.0 110 14 98/62 (74) 100 12/26/19 04:00 Mechanical Ventilator 12/26/19 03:20 115 17 40 12/26/19 03:16 117 12/26/19 03:00 117 13 113/73 (86) 100 12/26/19 02:00 102 18 99/68 (78) 100 12/26/19 01:00 108 17 98/65 (76) 100 12/26/19 00:30 106 17 112/78 (89) 100 12/26/19 00:00 Mechanical Ventilator 12/26/19 00:00 99.4 110 16 102/63 (76) 100 12/25/19 23:54 112 17 40 12/25/19 23:04 92 12/25/19 23:00 102 14 93/56 (68) 100 12/25/19 22:15 124 18 100/65 (77) 100 12/25/19 22:00 110 14 93/58 (70) 100 12/25/19 21:30 106 14 91/58 (69) 100 12/25/19 21:15 103 14 88/53 (65) 100 12/25/19 21:00 107 14 89/52 (64) 100 12/25/19 20:45 116 14 91/53 (66) 100 12/25/19 20:30 131 17 107/67 (80) 100 12/25/19 20:15 123 18 105/66 (79) 100 12/25/19 20:00 100.4 115 19 108/60 (76) 100 12/25/19 20:00 Mechanical Ventilator 12/25/19 19:51 97 12/25/19 19:45 85 14 89/56 (67) 100 12/25/19 19:21 84 14 89/55 (66) 100 12/25/19 19:20 130 15 40 12/25/19 19:00 84 14 89/55 (66) 100 12/25/19 18:21 58 14 118/67 (84) 100 12/25/19 18:21 58 13 118/67 (84) 100 12/25/19 18:15 57 14 123/72 (89) 100 12/25/19 18:00 56 14 132/84 (100) 100 12/25/19 17:30 97 11 138/91 (107) 100 12/25/19 17:00 59 14 140/80 (100) 100 12/25/19 16:45 93.7 61 14 142/87 (105) 100 12/25/19 16:30 63 13 125/85 (98) 100 12/25/19 16:27 84 17 135/86 (102) 100 12/25/19 16:00 67 12/25/19 16:00 93.0 63 17 141/87 (105) 100 12/25/19 16:00 Mechanical Ventilator 12/25/19 15:45 56 12 100 12/25/19 15:36 67 14 100 12/25/19 15:33 67 14 100 Mechanical Ventilator 100 12/25/19 12:00 96.9 93 18 116/78 (91) 93 12/25/19 12:00 Nasal Cannula 2.0 12/25/19 11:29 93 Height (Feet): 5 Height (Inches): 4.00 Weight (Pounds): 166 HEENT: mucous membranes moist, other - orally intubated Respiratory/Chest: other - on ventilator Cardiovascular: tachycardia, other Abdomen: other - surgical dressing Extremities: no edema Neurologic/Psychiatric: other - sleeping Laboratory Tests Test 12/25/19 12:19 12/26/19 04:10 POC Whole Blood Glucose Pending White Blood Count 10.0 K/UL (4.8-10.8) Red Blood Count 2.69 M/UL (4.20-5.40) L Hemoglobin 8.5 G/DL (12.0-16.0) L Hematocrit 27.8 % (37.0-47.0) L Mean Corpuscular Volume 103 FL (80-99) H Mean Corpuscular Hemoglobin 31.5 PG (27.0-31.0) H Mean Corpuscular Hemoglobin Concent 30.5 G/DL (32.0-36.0) L Red Cell Distribution Width 17.6 % (11.6-14.8) H Platelet Count 125 K/UL (150-450) L Mean Platelet Volume 6.9 FL (6.5-10.1) Neutrophils (%) (Auto) 72.9 % (45.0-75.0) Lymphocytes (%) (Auto) 19.9 % (20.0-45.0) L Monocytes (%) (Auto) 6.6 % (1.0-10.0) Eosinophils (%) (Auto) 0.1 % (0.0-3.0) Basophils (%) (Auto) 0.5 % (0.0-2.0) Prothrombin Time 13.6 SEC (9.30-11.50) H Prothromb Time International Ratio 1.3 (0.9-1.1) H Activated Partial Thromboplast Time 30 SEC (23-33) Sodium Level 166 MMOL/L (136-145) *H Potassium Level 3.7 MMOL/L (3.5-5.1) Chloride Level 129 MMOL/L (98-107) H Carbon Dioxide Level 29 MMOL/L (21-32) Anion Gap 8 mmol/L (5-15) Blood Urea Nitrogen 10 mg/dL (7-18) Creatinine 1.7 MG/DL (0.55-1.30) H Estimat Glomerular Filtration Rate 38.2 mL/min (>60) Glucose Level 89 MG/DL (74-106) Calcium Level 7.0 MG/DL (8.5-10.1) L Total Bilirubin 0.3 MG/DL (0.2-1.0) Aspartate Amino Transf (AST/SGOT) 28 U/L (15-37) Alanine Aminotransferase (ALT/SGPT) 15 U/L (12-78) Alkaline Phosphatase 92 U/L (46-116) Total Protein 5.0 G/DL (6.4-8.2) L Albumin 1.1 G/DL (3.4-5.0) L Globulin 3.9 g/dL Albumin/Globulin Ratio 0.3 (1.0-2.7) L Current Medications Medications (Trade) Dose Ordered Sig/Venita Route PRN Reason Start Time Stop Time Status Last Admin Dose Admin Benztropine Mesylate (Cogentin) 2 mg BID ORAL 12/25/19 18:00 01/20/20 08:59 Ceftriaxone Sodium 1 gm/ Dextrose 55 ml @ 110 mls/hr Q24H IVPB 12/25/19 16:00 01/01/20 15:59 12/25/19 18:25 Dexamethasone Sodium Phosphate (Decadron 10mg/ ml Inj) 6 mg DAILY IV 12/26/19 09:00 01/01/20 08:59 12/26/19 08:30 Dextrose 1,000 ml @ 125 mls/hr Q8H IV 12/25/19 16:45 01/22/20 08:14 12/26/19 08:30 Divalproex Sodium (Depakote ER) 500 mg DAILY ORAL 12/26/19 09:00 01/20/20 08:59 Docusate Sodium (Colace) 100 mg THREE TIMES A DAY ORAL 12/25/19 18:00 01/20/20 08:59 Haloperidol (Haldol) 5 mg TID ORAL 12/25/19 18:00 02/04/20 13:59 Heparin Sodium (Porcine) (Heparin 5000 units/ml) 5,000 units EVERY 12 HOURS SUBQ 12/26/19 09:00 02/09/20 08:59 12/26/19 08:31 Hydralazine HCl (Apresoline) 10 mg Q4H PRN IV Blood pressure over 160 systol 12/25/19 16:38 03/24/20 16:37 Lorazepam (Ativan 2mg/ml 1ml) 1 mg Q4H PRN IV For Anxiety 12/25/19 16:38 01/01/20 16:37 Lorazepam (Ativan) 1 mg Q6H PRN ORAL Agitation 12/25/19 16:38 01/01/20 16:37 Pantoprazole (Protonix) 40 mg EVERY 12 HOURS IVP 12/25/19 21:00 01/24/20 20:59 12/26/19 08:31 Ziprasidone (Geodon) 40 mg Q12HR ORAL 12/25/19 21:00 02/04/20 20:59 Ron Luis MD Dec 26, 2019 08:53
[2019-12-26] MEDS: Docusate 100mg cap ORAL SCH ×3 (09:00→17:23)
[2019-12-26] MEDS ORDERED: Cefepime HCl 1 GM in D5W 55 ML IVPB SCH ×2 (09:00→21:00)
[2019-12-26] MEDS: Ziprasidone 20mg cap ORAL SCH ×2 (09:00→20:19)
[2019-12-26] MEDS: Benztropine 1mg tab ORAL SCH ×2 (09:00→17:23)
[2019-12-26] MEDS: Depakote ER 500mg tab ORAL SCH (09:00)
[2019-12-26] MEDS ORDERED: Cefepime HCl 1 GM in D5W 55 ML IVPB ONE (09:00)
--- NOTE | 2019-12-26 10:16 | Hematology/Onc Progress Note ---
Assessment/Plan Assessment/Plan Assessment and recs # Thrombocytopenia - potential causes multifactorial, evaluate liver and viral etiologies to begin, also could be related to underlying medications patient has received. covid19++ also s/p ventral hernia repair --> Hep panel and HIV ordered --> US abd to evaluate for cirrhosis and hsm ordered --> Peripheral smear ordered to evaluate for blasts /schistocytes --> abx and other meds have been reviewed --> ok for ppx if plt >50k w/ either heparin or lovenox --> Transfuse if Plt < 20k and fever, or if Plt < 10k without fever --> plt 143-->115-->98->125 --> abx ctx # Anemia of iron deficiency, unspecified rule out gi bleed --> obtain a anemia panel, has been ordered --> will/have begun on iv iron and continue x 5 doses --> review if occult blood is + (review this to make sure +). Can consider gi eval --> hgb goal is >7, transfuse as needed --> trend CBC daily to make sure no major acute drop --> no evidence of hemolysis noted --> hgb 8-->8.5 # Coagulopathy likely due to covid19++ in adition to vit k depletion --> have jamilah Vargas, will give ffp and vitk --> recheck inr / ptt after surgery--> surgery completed # Acute febrile illness due to covid19+++ --> due to Suspected 2019-nCoV infection -> on abx --> steriods ahve been given # Atypical pneumonia # Hernia, ventral --> sp surgical repair and revision 12/24 # Hypernatremia # Hypoglycemia # E..coli sepsis # COVID 19 pneumonia # Hypertension # renal failure # Bipolar disorder # Asthma # Dvt ppx heparin sq The timing of this note does not necessarily reflect the time of the patient was seen. Greatly appreciate consultation. Subjective Allergies: Coded Allergies: IBUPROFEN (Verified Allergy, Unknown, 12/20/19) All Systems: reviewed and negative except above Subjective 12/24 abdominal mild pain with ttp, to see by surg for discussion re surgery today 12/25 intubated, no bleeding, meds reviewed, labs noted, dw ID Objective Objective Current Medications Medications (Trade) Dose Ordered Sig/Venita Route PRN Reason Start Time Stop Time Status Last Admin Dose Admin Benztropine Mesylate (Cogentin) 2 mg BID ORAL 12/25/19 18:00 01/20/20 08:59 Cefepime HCl 1 gm/ Dextrose 55 ml @ 110 mls/hr Q24H IVPB 12/26/19 21:00 01/02/20 20:59 Dexamethasone Sodium Phosphate (Decadron 10mg/ ml Inj) 6 mg DAILY IV 12/26/19 09:00 01/01/20 08:59 12/26/19 08:30 Dextrose 1,000 ml @ 125 mls/hr Q8H IV 12/25/19 16:45 01/22/20 08:14 12/26/19 08:30 Divalproex Sodium (Depakote ER) 500 mg DAILY ORAL 12/26/19 09:00 01/20/20 08:59 Docusate Sodium (Colace) 100 mg THREE TIMES A DAY ORAL 12/25/19 18:00 01/20/20 08:59 Haloperidol (Haldol) 5 mg TID ORAL 12/25/19 18:00 02/04/20 13:59 Heparin Sodium (Porcine) (Heparin 5000 units/ml) 5,000 units EVERY 12 HOURS SUBQ 12/26/19 09:00 02/09/20 08:59 12/26/19 08:31 Hydralazine HCl (Apresoline) 10 mg Q4H PRN IV Blood pressure over 160 systol 12/25/19 16:38 03/24/20 16:37 Lorazepam (Ativan 2mg/ml 1ml) 1 mg Q4H PRN IV For Anxiety 12/25/19 16:38 01/01/20 16:37 Lorazepam (Ativan) 1 mg Q6H PRN ORAL Agitation 12/25/19 16:38 01/01/20 16:37 Pantoprazole (Protonix) 40 mg EVERY 12 HOURS IVP 12/25/19 21:00 01/24/20 20:59 12/26/19 08:31 Ziprasidone (Geodon) 40 mg Q12HR ORAL 12/25/19 21:00 02/04/20 20:59 Last 24 Hour Vital Signs Date Time Temp Pulse Resp B/P (MAP) Pulse Ox O2 Delivery O2 Flow Rate FiO2 12/26/19 07:00 108 19 105/69 (81) 100 12/26/19 06:00 114 20 109/68 (82) 100 12/26/19 05:00 82 14 108/61 (77) 100 12/26/19 04:00 99.0 110 14 98/62 (74) 100 12/26/19 04:00 Mechanical Ventilator 12/26/19 03:20 115 17 40 12/26/19 03:16 117 12/26/19 03:00 117 13 113/73 (86) 100 12/26/19 02:00 102 18 99/68 (78) 100 12/26/19 01:00 108 17 98/65 (76) 100 12/26/19 00:30 106 17 112/78 (89) 100 12/26/19 00:00 Mechanical Ventilator 12/26/19 00:00 99.4 110 16 102/63 (76) 100 12/25/19 23:54 112 17 40 12/25/19 23:04 92 12/25/19 23:00 102 14 93/56 (68) 100 12/25/19 22:15 124 18 100/65 (77) 100 12/25/19 22:00 110 14 93/58 (70) 100 12/25/19 21:30 106 14 91/58 (69) 100 12/25/19 21:15 103 14 88/53 (65) 100 12/25/19 21:00 107 14 89/52 (64) 100 12/25/19 20:45 116 14 91/53 (66) 100 12/25/19 20:30 131 17 107/67 (80) 100 12/25/19 20:15 123 18 105/66 (79) 100 12/25/19 20:00 100.4 115 19 108/60 (76) 100 12/25/19 20:00 Mechanical Ventilator 12/25/19 19:51 97 12/25/19 19:45 85 14 89/56 (67) 100 12/25/19 19:21 84 14 89/55 (66) 100 12/25/19 19:20 130 15 40 12/25/19 19:00 84 14 89/55 (66) 100 12/25/19 18:21 58 14 118/67 (84) 100 12/25/19 18:21 58 13 118/67 (84) 100 12/25/19 18:15 57 14 123/72 (89) 100 12/25/19 18:00 56 14 132/84 (100) 100 12/25/19 17:30 97 11 138/91 (107) 100 12/25/19 17:00 59 14 140/80 (100) 100 12/25/19 16:45 93.7 61 14 142/87 (105) 100 12/25/19 16:30 63 13 125/85 (98) 100 12/25/19 16:27 84 17 135/86 (102) 100 12/25/19 16:00 67 12/25/19 16:00 93.0 63 17 141/87 (105) 100 12/25/19 16:00 Mechanical Ventilator 12/25/19 15:45 56 12 100 12/25/19 15:36 67 14 100 12/25/19 15:33 67 14 100 Mechanical Ventilator 100 12/25/19 12:00 96.9 93 18 116/78 (91) 93 12/25/19 12:00 Nasal Cannula 2.0 12/25/19 11:29 93 12/25/19 08:00 Nasal Cannula 2.0 12/25/19 08:00 97.0 97 20 125/80 (95) 98 12/25/19 07:42 126 12/25/19 04:00 96.5 101 19 123/74 (90) 98 12/25/19 04:00 100 12/25/19 04:00 Nasal Cannula 2.0 12/25/19 00:00 Nasal Cannula 2.0 12/25/19 00:00 98.6 98 19 117/76 (90) 98 12/24/19 20:00 Nasal Cannula 2.0 12/24/19 20:00 108 12/24/19 20:00 98.6 101 19 123/74 (90) 98 12/24/19 16:00 97.9 110 16 116/70 (85) 98 12/24/19 16:00 Nasal Cannula 2.0 12/24/19 15:55 77 12/24/19 12:00 88 12/24/19 12:00 Nasal Cannula 2.0 12/24/19 12:00 98.2 116 20 124/84 (97) 99 Intake and Output 7/8/20 7/9/20 19:00 07:00 Intake Total 642.25 ml 1410.4167 ml Output Total 1075 ml 770 ml Balance -432.75 ml 640.4167 ml IV Total 392.25 ml 1410.4167 ml Blood Product 250 ml Output Urine Total 1075 ml 770 ml # Bowel Movements 3 1 Labs Test 12/23/19 10:30 12/23/19 12:40 12/23/19 17:36 12/24/19 01:51 Potassium Level 3.4 MMOL/L (3.5-5.1) POC Whole Blood Glucose 104 MG/DL (74-106) Test 12/24/19 06:29 12/24/19 12:00 12/25/19 04:46 12/25/19 12:19 POC Whole Blood Glucose 86 MG/DL (74-106) Sodium Level 168 MMOL/L (136-145) 167 MMOL/L (136-145) Potassium Level 3.9 MMOL/L (3.5-5.1) 4.1 MMOL/L (3.5-5.1) Chloride Level 130 MMOL/L (98-107) 131 MMOL/L (98-107) Carbon Dioxide Level 30 MMOL/L (21-32) 28 MMOL/L (21-32) Anion Gap 8 mmol/L (5-15) 9 mmol/L (5-15) Blood Urea Nitrogen 13 mg/dL (7-18) 10 mg/dL (7-18) Creatinine 1.4 MG/DL (0.55-1.30) 1.3 MG/DL (0.55-1.30) Estimat Glomerular Filtration Rate 47.6 mL/min (>60) 51.9 mL/min (>60) Glucose Level 172 MG/DL (74-106) 64 MG/DL (74-106) Calcium Level 7.1 MG/DL (8.5-10.1) 7.3 MG/DL (8.5-10.1) Phosphorus Level 2.9 MG/DL (2.5-4.9) Magnesium Level 1.9 MG/DL (1.8-2.4) Total Bilirubin 0.3 MG/DL (0.2-1.0) 0.2 MG/DL (0.2-1.0) Aspartate Amino Transf (AST/SGOT) 29 U/L (15-37) 29 U/L (15-37) Alanine Aminotransferase (ALT/SGPT) 17 U/L (12-78) 14 U/L (12-78) Alkaline Phosphatase 112 U/L (46-116) 101 U/L (46-116) Total Protein 5.5 G/DL (6.4-8.2) 5.3 G/DL (6.4-8.2) Albumin 1.1 G/DL (3.4-5.0) 1.0 G/DL (3.4-5.0) Globulin 4.4 g/dL 4.3 g/dL Albumin/Globulin Ratio 0.2 (1.0-2.7) 0.2 (1.0-2.7) Hepatitis A IgM Antibody Negative (Negative) Hepatitis B Surface Antigen Negative (Negative) Hepatitis B Core IgM Antibody Negative (Negative) Hepatitis C Antibody 0.1 s/co ratio (0.0-0.9) HIV (1&2) Antibody Rapid Negative (NEGATIVE) White Blood Count 9.0 K/UL (4.8-10.8) Red Blood Count 2.45 M/UL (4.20-5.40) Hemoglobin 8.0 G/DL (12.0-16.0) Hematocrit 27.2 % (37.0-47.0) Mean Corpuscular Volume 111 FL (80-99) Mean Corpuscular Hemoglobin 32.9 PG (27.0-31.0) Mean Corpuscular Hemoglobin Concent 29.6 G/DL (32.0-36.0) Red Cell Distribution Width 14.8 % (11.6-14.8) Platelet Count 98 K/UL (150-450) Mean Platelet Volume 6.7 FL (6.5-10.1) Neutrophils (%) (Auto) % (45.0-75.0) Lymphocytes (%) (Auto) % (20.0-45.0) Monocytes (%) (Auto) % (1.0-10.0) Eosinophils (%) (Auto) % (0.0-3.0) Basophils (%) (Auto) % (0.0-2.0) Differential Total Cells Counted 100 Neutrophils % (Manual) 83 % (45-75) Lymphocytes % (Manual) 14 % (20-45) Monocytes % (Manual) 3 % (1-10) Eosinophils % (Manual) 0 % (0-3) Basophils % (Manual) 0 % (0-2) Band Neutrophils 0 % (0-8) Platelet Estimate Decreased Platelet Morphology Normal Hypochromasia 1+ Anisocytosis 1+ Macrocytosis 1+ Erythrocyte Sedimentation Rate 60 MM/HR (0-30) Prothrombin Time 15.6 SEC (9.30-11.50) Prothromb Time International Ratio 1.5 (0.9-1.1) Activated Partial Thromboplast Time 34 SEC (23-33) C-Reactive Protein, Quantitative 12.9 mg/dL (0.00-0.90) Amylase Level 13 U/L (25-115) Lipase 49 U/L (73-393) Test 12/26/19 04:10 White Blood Count 10.0 K/UL (4.8-10.8) Red Blood Count 2.69 M/UL (4.20-5.40) Hemoglobin 8.5 G/DL (12.0-16.0) Hematocrit 27.8 % (37.0-47.0) Mean Corpuscular Volume 103 FL (80-99) Mean Corpuscular Hemoglobin 31.5 PG (27.0-31.0) Mean Corpuscular Hemoglobin Concent 30.5 G/DL (32.0-36.0) Red Cell Distribution Width 17.6 % (11.6-14.8) Platelet Count 125 K/UL (150-450) Mean Platelet Volume 6.9 FL (6.5-10.1) Neutrophils (%) (Auto) 72.9 % (45.0-75.0) Lymphocytes (%) (Auto) 19.9 % (20.0-45.0) Monocytes (%) (Auto) 6.6 % (1.0-10.0) Eosinophils (%) (Auto) 0.1 % (0.0-3.0) Basophils (%) (Auto) 0.5 % (0.0-2.0) Prothrombin Time 13.6 SEC (9.30-11.50) Prothromb Time International Ratio 1.3 (0.9-1.1) Activated Partial Thromboplast Time 30 SEC (23-33) Sodium Level 166 MMOL/L (136-145) Potassium Level 3.7 MMOL/L (3.5-5.1) Chloride Level 129 MMOL/L (98-107) Carbon Dioxide Level 29 MMOL/L (21-32) Anion Gap 8 mmol/L (5-15) Blood Urea Nitrogen 10 mg/dL (7-18) Creatinine 1.7 MG/DL (0.55-1.30) Estimat Glomerular Filtration Rate 38.2 mL/min (>60) Glucose Level 89 MG/DL (74-106) Calcium Level 7.0 MG/DL (8.5-10.1) Total Bilirubin 0.3 MG/DL (0.2-1.0) Aspartate Amino Transf (AST/SGOT) 28 U/L (15-37) Alanine Aminotransferase (ALT/SGPT) 15 U/L (12-78) Alkaline Phosphatase 92 U/L (46-116) Total Protein 5.0 G/DL (6.4-8.2) Albumin 1.1 G/DL (3.4-5.0) Globulin 3.9 g/dL Albumin/Globulin Ratio 0.3 (1.0-2.7) Height (Feet): 5 Height (Inches): 4.00 Weight (Pounds): 166 Objective Physical Exam: Vitals: reviewed General: NAD HEENT: nc, at Neck: supple Chest: clear breath sounds bilaterally++intubated Cardiovascular: RRR, no s3, s4 Abdomen: soft, nontender, ttp in upper quands, abd surgical scar c/d/i Extremities: no cce, normal range of motion Neuro: alert and oriented Charanjit Sandoval MD Dec 26, 2019 10:16
--- NOTE | 2019-12-26 10:18 | NUR ---
NURSE NOTES: Seen by Dr. Hobson and assessed patient. Ordered extubation.
--- NOTE | 2019-12-26 10:30 | Diagnostic Imaging Report ---
Indication: Dyspnea Technique: One view of the chest Comparison: 12/25/2019 Findings: There inspiration on the current exam. Apparent slight improvement of previously demonstrated right lung infiltrates, may in part be due to the better aeration. There is again demonstrated a small left pleural effusion. The heart size is normal. Interim endotracheal intubation, endotracheal tube tip projecting just above the chichi. Impression: Interim endotracheal intubation, satisfactory position of ET tube Stable to slightly improved right lung infiltrates, likely pneumonia Stable small left pleural effusion
--- NOTE | 2019-12-26 10:44 | NUR ---
RADIOLOGY DEPT., CHEST X-RAY DONE.-P.DYE
--- NOTE | 2019-12-26 10:58 | Nephrology Progress Note ---
Assessment/Plan Problem List: (1) Renal failure Assessment: Acute on chronic (2) Suspected 2019-nCoV infection Assessment: Acute febrile illness (3) Hypernatremia Assessment: Improving (4) Hypoglycemia Assessment: Improving Assessment Renal failure, most likely chronic, with superimposed acute renal failure. Acute febrile illness, suspected COVID-19 infection. Hypernatremia, likely due to free water deficit. Hypoglycemia Severe hypoalbuminemia Atypical pneumonia Anemia History of psych disease Plan December 25: Patient in ICU. Had surgery yesterday December 24. Patient remains intubated, due for extubation. Lab reviewed. Discussed with RN. Continue D5W for hypernatremia. Patient overall stable from renal standpoint of view. December 24: Renal parameters reviewed. Creatinine within normal limit. Serum sodium remains high. Patient due for hernia surgery today. Continue D5W IV fluid. December 23: Renal parameters reviewed. Creatinine down to 1.4. Serum sodium higher. Patient is being investigated for incarcerated ventral hernia by general surgery. Continue current IV fluid and monitor renal parameters. December 22: Will recheck serum potassium. If nonhemolyzed value still elevated will treat hyperkalemia. Discussed with DOT Leary. Continue the rest of the medication. Stop blood pressure medication due to low blood pressure, adjust the dose when the blood pressure improves PRN IV hydralazine for blood pressure spike D5W IV hydration Protonix p.o. Albumin IV bolus Monitor renal parameters Continue per consultants Saha catheter, urine studies Subjective ROS Limited/Unobtainable: Yes Objective Objective Last 24 Hour Vital Signs Date Time Temp Pulse Resp B/P (MAP) Pulse Ox O2 Delivery O2 Flow Rate FiO2 12/26/19 08:00 Mechanical Ventilator 12/26/19 07:00 108 19 105/69 (81) 100 12/26/19 06:00 114 20 109/68 (82) 100 12/26/19 05:00 82 14 108/61 (77) 100 12/26/19 04:00 99.0 110 14 98/62 (74) 100 12/26/19 04:00 Mechanical Ventilator 12/26/19 03:20 115 17 40 12/26/19 03:16 117 12/26/19 03:00 117 13 113/73 (86) 100 12/26/19 02:00 102 18 99/68 (78) 100 12/26/19 01:00 108 17 98/65 (76) 100 12/26/19 00:30 106 17 112/78 (89) 100 12/26/19 00:00 Mechanical Ventilator 12/26/19 00:00 99.4 110 16 102/63 (76) 100 12/25/19 23:54 112 17 40 12/25/19 23:04 92 12/25/19 23:00 102 14 93/56 (68) 100 12/25/19 22:15 124 18 100/65 (77) 100 12/25/19 22:00 110 14 93/58 (70) 100 12/25/19 21:30 106 14 91/58 (69) 100 12/25/19 21:15 103 14 88/53 (65) 100 12/25/19 21:00 107 14 89/52 (64) 100 12/25/19 20:45 116 14 91/53 (66) 100 12/25/19 20:30 131 17 107/67 (80) 100 12/25/19 20:15 123 18 105/66 (79) 100 12/25/19 20:00 100.4 115 19 108/60 (76) 100 12/25/19 20:00 Mechanical Ventilator 12/25/19 19:51 97 12/25/19 19:45 85 14 89/56 (67) 100 12/25/19 19:21 84 14 89/55 (66) 100 12/25/19 19:20 130 15 40 12/25/19 19:00 84 14 89/55 (66) 100 12/25/19 18:21 58 14 118/67 (84) 100 12/25/19 18:21 58 13 118/67 (84) 100 12/25/19 18:15 57 14 123/72 (89) 100 12/25/19 18:00 56 14 132/84 (100) 100 12/25/19 17:30 97 11 138/91 (107) 100 12/25/19 17:00 59 14 140/80 (100) 100 12/25/19 16:45 93.7 61 14 142/87 (105) 100 12/25/19 16:30 63 13 125/85 (98) 100 12/25/19 16:27 84 17 135/86 (102) 100 12/25/19 16:00 67 7/8/20 16:00 93.0 63 17 141/87 (105) 100 12/25/19 16:00 Mechanical Ventilator 12/25/19 15:45 56 12 100 12/25/19 15:36 67 14 100 12/25/19 15:33 67 14 100 Mechanical Ventilator 100 12/25/19 12:00 96.9 93 18 116/78 (91) 93 12/25/19 12:00 Nasal Cannula 2.0 12/25/19 11:29 93 Intake and Output 12/25/19 12/26/19 19:00 07:00 Intake Total 642.25 ml 1410.4167 ml Output Total 1075 ml 770 ml Balance -432.75 ml 640.4167 ml IV Total 392.25 ml 1410.4167 ml Blood Product 250 ml Output Urine Total 1075 ml 770 ml # Bowel Movements 3 1 Laboratory Tests 12/25/19 12:19: POC Whole Blood Glucose [Pending] 12/26/19 04:10: White Blood Count 10.0, Red Blood Count 2.69L, Hemoglobin 8.5L, Hematocrit 27.8L , Mean Corpuscular Volume 103H, Mean Corpuscular Hemoglobin 31.5H, Mean Corpuscular Hemoglobin Concent 30.5L, Red Cell Distribution Width 17.6H, Platelet Count 125L, Mean Platelet Volume 6.9, Neutrophils (%) (Auto) 72.9, Lymphocytes (%) (Auto) 19.9L, Monocytes (%) (Auto) 6.6, Eosinophils (%) (Auto) 0.1, Basophils (%) (Auto) 0.5, Prothrombin Time 13.6H, Prothromb Time International Ratio 1.3H, Activated Partial Thromboplast Time 30, Sodium Level 166*H, Potassium Level 3.7, Chloride Level 129H, Carbon Dioxide Level 29, Anion Gap 8, Blood Urea Nitrogen 10, Creatinine 1.7H, Estimat Glomerular Filtration Rate 38.2, Glucose Level 89, Calcium Level 7.0L, Total Bilirubin 0.3, Aspartate Amino Transf (AST/SGOT) 28, Alanine Aminotransferase (ALT/SGPT) 15, Alkaline Phosphatase 92, Total Protein 5.0L, Albumin 1.1L, Globulin 3.9, Albumin/ Globulin Ratio 0.3L Height (Feet): 5 Height (Inches): 4.00 Weight (Pounds): 166 General Appearance: no apparent distress EENT: other Cardiovascular: tachycardia Respiratory/Chest: decreased breath sounds Abdomen: distended Brian Pichardo MD Dec 26, 2019 10:58
--- NOTE | 2019-12-26 11:02 | Pulmonology Progress Note ---
Subjective ROS Limited/Unobtainable: Yes Interval Events: intubated pre-op yesterday Constitutional: Reports: fever, other - Gg=105.4 HEENT: Repors: no symptoms Respiratory: Reports: no symptoms Cardiovascular: Reports: no symptoms Gastrointestinal/Abdominal: Denies: nausea, vomiting, diarrhea Genitourinary: Reports: no symptoms Musculoskeletal: Denies: pain Allergies: Coded Allergies: IBUPROFEN (Verified Allergy, Unknown, 12/20/19) All Systems: reviewed and negative except above Objective Last 24 Hour Vital Signs Date Time Temp Pulse Resp B/P (MAP) Pulse Ox O2 Delivery O2 Flow Rate FiO2 12/26/19 08:00 Mechanical Ventilator 12/26/19 07:00 108 19 105/69 (81) 100 12/26/19 06:00 114 20 109/68 (82) 100 12/26/19 05:00 82 14 108/61 (77) 100 12/26/19 04:00 99.0 110 14 98/62 (74) 100 12/26/19 04:00 Mechanical Ventilator 12/26/19 03:20 115 17 40 12/26/19 03:16 117 12/26/19 03:00 117 13 113/73 (86) 100 12/26/19 02:00 102 18 99/68 (78) 100 12/26/19 01:00 108 17 98/65 (76) 100 12/26/19 00:30 106 17 112/78 (89) 100 12/26/19 00:00 Mechanical Ventilator 12/26/19 00:00 99.4 110 16 102/63 (76) 100 12/25/19 23:54 112 17 40 12/25/19 23:04 92 12/25/19 23:00 102 14 93/56 (68) 100 12/25/19 22:15 124 18 100/65 (77) 100 12/25/19 22:00 110 14 93/58 (70) 100 12/25/19 21:30 106 14 91/58 (69) 100 12/25/19 21:15 103 14 88/53 (65) 100 12/25/19 21:00 107 14 89/52 (64) 100 12/25/19 20:45 116 14 91/53 (66) 100 12/25/19 20:30 131 17 107/67 (80) 100 12/25/19 20:15 123 18 105/66 (79) 100 12/25/19 20:00 100.4 115 19 108/60 (76) 100 12/25/19 20:00 Mechanical Ventilator 12/25/19 19:51 97 12/25/19 19:45 85 14 89/56 (67) 100 12/25/19 19:21 84 14 89/55 (66) 100 12/25/19 19:20 130 15 40 12/25/19 19:00 84 14 89/55 (66) 100 12/25/19 18:21 58 14 118/67 (84) 100 12/25/19 18:21 58 13 118/67 (84) 100 12/25/19 18:15 57 14 123/72 (89) 100 12/25/19 18:00 56 14 132/84 (100) 100 12/25/19 17:30 97 11 138/91 (107) 100 12/25/19 17:00 59 14 140/80 (100) 100 12/25/19 16:45 93.7 61 14 142/87 (105) 100 12/25/19 16:30 63 13 125/85 (98) 100 12/25/19 16:27 84 17 135/86 (102) 100 12/25/19 16:00 67 12/25/19 16:00 93.0 63 17 141/87 (105) 100 12/25/19 16:00 Mechanical Ventilator 12/25/19 15:45 56 12 100 12/25/19 15:36 67 14 100 12/25/19 15:33 67 14 100 Mechanical Ventilator 100 12/25/19 12:00 96.9 93 18 116/78 (91) 93 12/25/19 12:00 Nasal Cannula 2.0 12/25/19 11:29 93 Intake and Output 12/25/19 12/26/19 19:00 07:00 Intake Total 642.25 ml 1410.4167 ml Output Total 1075 ml 770 ml Balance -432.75 ml 640.4167 ml IV Total 392.25 ml 1410.4167 ml Blood Product 250 ml Output Urine Total 1075 ml 770 ml # Bowel Movements 3 1 General Appearance: no acute distress HEENT: normocephalic Respiratory: chest wall non-tender Cardiovascular: normal peripheral pulses, normal rate Abdomen: normal bowel sounds Extremities: no cyanosis Laboratory Tests 12/25/19 12:19: POC Whole Blood Glucose [Pending] 12/26/19 04:10: White Blood Count 10.0, Red Blood Count 2.69L, Hemoglobin 8.5L, Hematocrit 27.8L , Mean Corpuscular Volume 103H, Mean Corpuscular Hemoglobin 31.5H, Mean Corpuscular Hemoglobin Concent 30.5L, Red Cell Distribution Width 17.6H, Platelet Count 125L, Mean Platelet Volume 6.9, Neutrophils (%) (Auto) 72.9, Lymphocytes (%) (Auto) 19.9L, Monocytes (%) (Auto) 6.6, Eosinophils (%) (Auto) 0.1, Basophils (%) (Auto) 0.5, Prothrombin Time 13.6H, Prothromb Time International Ratio 1.3H, Activated Partial Thromboplast Time 30, Sodium Level 166*H, Potassium Level 3.7, Chloride Level 129H, Carbon Dioxide Level 29, Anion Gap 8, Blood Urea Nitrogen 10, Creatinine 1.7H, Estimat Glomerular Filtration Rate 38.2, Glucose Level 89, Calcium Level 7.0L, Total Bilirubin 0.3, Aspartate Amino Transf (AST/SGOT) 28, Alanine Aminotransferase (ALT/SGPT) 15, Alkaline Phosphatase 92, Total Protein 5.0L, Albumin 1.1L, Globulin 3.9, Albumin/ Globulin Ratio 0.3L Current Medications Medications (Trade) Dose Ordered Sig/Venita Route PRN Reason Start Time Stop Time Status Last Admin Dose Admin Benztropine Mesylate (Cogentin) 2 mg BID ORAL 12/25/19 18:00 01/20/20 08:59 Cefepime HCl 1 gm/ Dextrose 55 ml @ 110 mls/hr Q24H IVPB 12/26/19 21:00 01/02/20 20:59 Dexamethasone Sodium Phosphate (Decadron 10mg/ ml Inj) 6 mg DAILY IV 12/26/19 09:00 01/01/20 08:59 12/26/19 08:30 Dextrose 1,000 ml @ 125 mls/hr Q8H IV 12/25/19 16:45 01/22/20 08:14 12/26/19 08:30 Divalproex Sodium (Depakote ER) 500 mg DAILY ORAL 12/26/19 09:00 01/20/20 08:59 Docusate Sodium (Colace) 100 mg THREE TIMES A DAY ORAL 12/25/19 18:00 01/20/20 08:59 Haloperidol (Haldol) 5 mg TID ORAL 12/25/19 18:00 02/04/20 13:59 Heparin Sodium (Porcine) (Heparin 5000 units/ml) 5,000 units EVERY 12 HOURS SUBQ 12/26/19 09:00 02/09/20 08:59 12/26/19 08:31 Hydralazine HCl (Apresoline) 10 mg Q4H PRN IV Blood pressure over 160 systol 12/25/19 16:38 03/24/20 16:37 Lorazepam (Ativan 2mg/ml 1ml) 1 mg Q4H PRN IV For Anxiety 12/25/19 16:38 01/01/20 16:37 Lorazepam (Ativan) 1 mg Q6H PRN ORAL Agitation 12/25/19 16:38 01/01/20 16:37 Pantoprazole (Protonix) 40 mg EVERY 12 HOURS IVP 12/25/19 21:00 01/24/20 20:59 12/26/19 08:31 Ziprasidone (Geodon) 40 mg Q12HR ORAL 12/25/19 21:00 02/04/20 20:59 Assessment/Plan Assessment/Plan IMPRESSION: 1. Confirmed COVID-19 pneumonia. 2. Hypernatremia. Improved 3. Psych disorder. 4. pen[facility]iary resident. 5. E Coli bacteremia 6. Incarcerated hernia s/p repair DISCUSSION: Agree with current medications and care. Continue steroids. Continue medications. 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 Abx per ID Will wean and attempt to extubate Roberta Manzo Omar Syed MD Dec 26, 2019 11:02
--- NOTE | 2019-12-26 11:59 | General Progress Note ---
Assessment/Plan Problem List: (1) UTI (urinary tract infection) ICD Codes: N39.0 - Urinary tract infection, site not specified SNOMED: 98484084 (2) Malnutrition ICD Codes: E46 - Unspecified protein-calorie malnutrition SNOMED: 00939955 (3) Renal failure ICD Codes: N19 - Unspecified kidney failure SNOMED: 67900975 (4) HTN (hypertension) ICD Codes: I10 - Essential (primary) hypertension SNOMED: 85442137 (5) Hypoglycemia ICD Codes: E16.2 - Hypoglycemia, unspecified SNOMED: 079398953 (6) Hypernatremia ICD Codes: E87.0 - Hyperosmolality and hypernatremia SNOMED: 939460141 (7) Suspected 2019-nCoV infection ICD Codes: Z20.828 - Contact with and (suspected) exposure to other viral communicable diseases SNOMED: 694895915 Status: unchanged Assessment/Plan: o2 pulm tx abx pt diet cbc bmp am extubate wound care Subjective Constitutional: Reports: weakness Allergies: Coded Allergies: IBUPROFEN (Verified Allergy, Unknown, 12/20/19) All Systems: reviewed and negative except above Subjective intubated in icu Objective Last 24 Hour Vital Signs Date Time Temp Pulse Resp B/P (MAP) Pulse Ox O2 Delivery O2 Flow Rate FiO2 12/26/19 11:14 98 16 40 40 12/26/19 08:00 Mechanical Ventilator 12/26/19 07:00 108 19 105/69 (81) 100 12/26/19 06:00 114 20 109/68 (82) 100 12/26/19 05:00 82 14 108/61 (77) 100 12/26/19 04:00 99.0 110 14 98/62 (74) 100 12/26/19 04:00 Mechanical Ventilator 12/26/19 03:20 115 17 40 12/26/19 03:16 117 12/26/19 03:00 117 13 113/73 (86) 100 12/26/19 02:00 102 18 99/68 (78) 100 12/26/19 01:00 108 17 98/65 (76) 100 12/26/19 00:30 106 17 112/78 (89) 100 12/26/19 00:00 Mechanical Ventilator 12/26/19 00:00 99.4 110 16 102/63 (76) 100 12/25/19 23:54 112 17 40 12/25/19 23:04 92 12/25/19 23:00 102 14 93/56 (68) 100 12/25/19 22:15 124 18 100/65 (77) 100 12/25/19 22:00 110 14 93/58 (70) 100 12/25/19 21:30 106 14 91/58 (69) 100 12/25/19 21:15 103 14 88/53 (65) 100 12/25/19 21:00 107 14 89/52 (64) 100 12/25/19 20:45 116 14 91/53 (66) 100 12/25/19 20:30 131 17 107/67 (80) 100 12/25/19 20:15 123 18 105/66 (79) 100 12/25/19 20:00 100.4 115 19 108/60 (76) 100 12/25/19 20:00 Mechanical Ventilator 12/25/19 19:51 97 12/25/19 19:45 85 14 89/56 (67) 100 12/25/19 19:21 84 14 89/55 (66) 100 12/25/19 19:20 130 15 40 12/25/19 19:00 84 14 89/55 (66) 100 12/25/19 18:21 58 14 118/67 (84) 100 12/25/19 18:21 58 13 118/67 (84) 100 12/25/19 18:15 57 14 123/72 (89) 100 12/25/19 18:00 56 14 132/84 (100) 100 12/25/19 17:30 97 11 138/91 (107) 100 12/25/19 17:00 59 14 140/80 (100) 100 12/25/19 16:45 93.7 61 14 142/87 (105) 100 12/25/19 16:30 63 13 125/85 (98) 100 12/25/19 16:27 84 17 135/86 (102) 100 12/25/19 16:00 67 12/25/19 16:00 93.0 63 17 141/87 (105) 100 12/25/19 16:00 Mechanical Ventilator 12/25/19 15:45 56 12 100 12/25/19 15:36 67 14 100 12/25/19 15:33 67 14 100 Mechanical Ventilator 100 12/25/19 12:00 96.9 93 18 116/78 (91) 93 12/25/19 12:00 Nasal Cannula 2.0 Intake and Output 12/25/19 12/26/19 19:00 07:00 Intake Total 642.25 ml 1410.4167 ml Output Total 1075 ml 770 ml Balance -432.75 ml 640.4167 ml IV Total 392.25 ml 1410.4167 ml Blood Product 250 ml Output Urine Total 1075 ml 770 ml # Bowel Movements 3 1 Laboratory Tests 12/25/19 12:19: POC Whole Blood Glucose [Pending] 12/26/19 04:10: White Blood Count 10.0, Red Blood Count 2.69L, Hemoglobin 8.5L, Hematocrit 27.8L , Mean Corpuscular Volume 103H, Mean Corpuscular Hemoglobin 31.5H, Mean Corpuscular Hemoglobin Concent 30.5L, Red Cell Distribution Width 17.6H, Platelet Count 125L, Mean Platelet Volume 6.9, Neutrophils (%) (Auto) 72.9, Lymphocytes (%) (Auto) 19.9L, Monocytes (%) (Auto) 6.6, Eosinophils (%) (Auto) 0.1, Basophils (%) (Auto) 0.5, Prothrombin Time 13.6H, Prothromb Time International Ratio 1.3H, Activated Partial Thromboplast Time 30, Sodium Level 166*H, Potassium Level 3.7, Chloride Level 129H, Carbon Dioxide Level 29, Anion Gap 8, Blood Urea Nitrogen 10, Creatinine 1.7H, Estimat Glomerular Filtration Rate 38.2, Glucose Level 89, Calcium Level 7.0L, Total Bilirubin 0.3, Aspartate Amino Transf (AST/SGOT) 28, Alanine Aminotransferase (ALT/SGPT) 15, Alkaline Phosphatase 92, Total Protein 5.0L, Albumin 1.1L, Globulin 3.9, Albumin/ Globulin Ratio 0.3L Height (Feet): 5 Height (Inches): 4.00 Weight (Pounds): 166 General Appearance: lethargic EENT: normal ENT inspection Neck: normal alignment Cardiovascular: normal rate, regular rhythm Respiratory/Chest: no respiratory distress, no accessory muscle use Extremities: normal inspection Skin: normal pigmentation Ricky Potter DO Dec 26, 2019 11:59
--- NOTE | 2019-12-26 12:15 | 48 Hour Post Anesthesia Eval ---
Post Anesthesia Evaluation Procedure: Open , repair of incarcerated hernia Date of Evaluation: Dec 26, 2019 Time of Evaluation: 12:13 Blood Pressure Systolic: 109 0: 72 Pulse Rate: 68 Respiratory Rate: 18 Temperature (Fahrenheit): 97.6 O2 Sat by Pulse Oximetry: 98 Airway: other - oraly itubated on vent Nausea: No Vomiting: No Pain Intensity: 1 Hydration Status: adequate Cardiopulmonary Status: stable no pressors Mental Status/LOC: patient returned to baseline Follow-up Care/Observations: n/a Post-Anesthesia Complications: none Follow-up care needed: N/A Christopher Broussard MD Dec 26, 2019 12:15
--- NOTE | 2019-12-26 12:59 | Progress Note ---
DATE: 12/26/2019 SUBJECTIVE: This is a 54-year-old female patient. She does have some confusion, some disorganized thought process. She has got some mood lability, decline in cognition below her baseline. She has got racing thoughts, pressured speech, and mood lability. She denies suicidal thoughts, but she is very agitated and slight psychomotor agitation at times, able to redirect very poor insight. MENTAL STATUS EXAMINATION: This is a 54-year-old female. Appearance is disheveled. Attitude, irritable and agitated. Affect, guarded and restricted. Intellect, poor. Mood, depressed and anxious. Motor activity, psychomotor agitation. Attention span is poor. Orientation x2. Speech is low volume, slurred. Thought process, disorganized and illogical. Insight and judgment is poor. DIAGNOSIS: Schizoaffective, bipolar type. PLAN: Plan for this patient is to treat her with medication regimen of Geodon 40 mg q.12 hours, Ativan 1 mg every six hours p.r.n. anxiety or agitation, Haldol 5 mg three times a day, and Depakote 500 mg a day. Twenty minutes of cognitive behavioral therapy will help identify her automatic negative thoughts and help her convert those negative thoughts to more positive thoughts to reduce depression, anxiety, and mood lability. Chart reviewed. Discussed with staff. Seen and assessed in her room. Flip Burgos M.D. DR: NIMCO JOB#: [id number] CC:
--- NOTE | 2019-12-26 13:00 | NUR ---
NURSE NOTES: Patient is extubated. On O2 2L/min via NC. will continue plan of care.
--- NOTE | 2019-12-26 13:30 | NUR ---
NURSE NOTES: Feed patient. Clear liquid diet. Able to swallow with any difficulty. Ate 50% of lunch.
--- NOTE | 2019-12-26 13:46 | NUR ---
DIRECTOR OF ENTERPRISE ARCHITECTURE NOTE Pt was transferred to ICU from Step Down unit. Pt is from [facility] [address] [place] [address]. Per chart review, pt will be extubated today. SW spoke w/ pt's sister, Ghassan Orellana (living in [place]) [phone] confirmed that she is the next of kin and the primary decision maker. PT has other family members in [facility]. PEr Ghassan, pt is single, never and has no children. Ghassan shares pt has hx of Schizophrenia and Delusion. Pt remains full code. No concern/need addressed by Ghassan.
--- NOTE | 2019-12-26 14:38 | Surgery Progress Note ---
Surgery Progress Note Subjective Procedure Performed 1 open incarcerated ventral hernia incisional repair 2 right rectus musculocutaneous flap 3 left rectus musculocutaneous flap 4 implantation of mesh Bard large double-sided 5 open lysis of adhesions 6 localization tissue transfer with use of skin flaps to close the abdominal wall defect Additional Comments Postop day #1. Improving. Discussed with ICU team pulmonology extubate this morning. Okay to start oral diet once extubated. Comfortable appearing improving wound stable. Labs noted stable. Objective Last 24 Hour Vital Signs Date Time Temp Pulse Resp B/P (MAP) Pulse Ox O2 Delivery O2 Flow Rate FiO2 12/26/19 13:00 2.0 12/26/19 13:00 98 14 118/82 (94) 100 12/26/19 12:15 68 18 98 12/26/19 12:00 112 12/26/19 12:00 Mechanical Ventilator 12/26/19 12:00 107 19 124/87 (99) 100 12/26/19 12:00 40 12/26/19 11:14 98 16 40 40 12/26/19 11:00 94 19 118/77 (91) 100 12/26/19 10:00 98 19 106/71 (83) 100 12/26/19 09:00 109 18 96/63 (74) 100 12/26/19 08:00 Mechanical Ventilator 12/26/19 08:00 40 12/26/19 08:00 98 12/26/19 08:00 113 20 112/73 (86) 100 12/26/19 07:00 108 19 105/69 (81) 100 12/26/19 06:00 114 20 109/68 (82) 100 12/26/19 05:00 82 14 108/61 (77) 100 12/26/19 04:00 99.0 110 14 98/62 (74) 100 12/26/19 04:00 Mechanical Ventilator 12/26/19 03:20 115 17 40 12/26/19 03:16 117 12/26/19 03:00 117 13 113/73 (86) 100 12/26/19 02:00 102 18 99/68 (78) 100 12/26/19 01:00 108 17 98/65 (76) 100 12/26/19 00:30 106 17 112/78 (89) 100 12/26/19 00:00 Mechanical Ventilator 7/9/20 00:00 99.4 110 16 102/63 (76) 100 12/25/19 23:54 112 17 40 12/25/19 23:04 92 12/25/19 23:00 102 14 93/56 (68) 100 12/25/19 22:15 124 18 100/65 (77) 100 12/25/19 22:00 110 14 93/58 (70) 100 12/25/19 21:30 106 14 91/58 (69) 100 12/25/19 21:15 103 14 88/53 (65) 100 12/25/19 21:00 107 14 89/52 (64) 100 12/25/19 20:45 116 14 91/53 (66) 100 12/25/19 20:30 131 17 107/67 (80) 100 12/25/19 20:15 123 18 105/66 (79) 100 12/25/19 20:00 100.4 115 19 108/60 (76) 100 12/25/19 20:00 Mechanical Ventilator 12/25/19 19:51 97 12/25/19 19:45 85 14 89/56 (67) 100 12/25/19 19:21 84 14 89/55 (66) 100 12/25/19 19:20 130 15 40 12/25/19 19:00 84 14 89/55 (66) 100 12/25/19 18:21 58 14 118/67 (84) 100 12/25/19 18:21 58 13 118/67 (84) 100 12/25/19 18:15 57 14 123/72 (89) 100 12/25/19 18:00 56 14 132/84 (100) 100 12/25/19 17:30 97 11 138/91 (107) 100 12/25/19 17:00 59 14 140/80 (100) 100 12/25/19 16:45 93.7 61 14 142/87 (105) 100 12/25/19 16:30 63 13 125/85 (98) 100 12/25/19 16:27 84 17 135/86 (102) 100 12/25/19 16:00 67 12/25/19 16:00 93.0 63 17 141/87 (105) 100 12/25/19 16:00 Mechanical Ventilator 12/25/19 15:45 56 12 100 7/8/20 15:36 67 14 100 12/25/19 15:33 67 14 100 Mechanical Ventilator 100 I&O Intake and Output 12/25/19 12/26/19 19:00 07:00 Intake Total 642.25 ml 1410.4167 ml Output Total 1075 ml 770 ml Balance -432.75 ml 640.4167 ml IV Total 392.25 ml 1410.4167 ml Blood Product 250 ml Output Urine Total 1075 ml 770 ml # Bowel Movements 3 1 Dressing: dry Wound: clean Cardiovascular: RSR Respiratory: clear Abdomen: soft, non-tender, present bowel sounds, other Extremities: no tenderness, no cyanosis Laboratory Tests Test 12/26/19 04:10 White Blood Count 10.0 K/UL (4.8-10.8) Red Blood Count 2.69 M/UL (4.20-5.40) L Hemoglobin 8.5 G/DL (12.0-16.0) L Hematocrit 27.8 % (37.0-47.0) L Mean Corpuscular Volume 103 FL (80-99) H Mean Corpuscular Hemoglobin 31.5 PG (27.0-31.0) H Mean Corpuscular Hemoglobin Concent 30.5 G/DL (32.0-36.0) L Red Cell Distribution Width 17.6 % (11.6-14.8) H Platelet Count 125 K/UL (150-450) L Mean Platelet Volume 6.9 FL (6.5-10.1) Neutrophils (%) (Auto) 72.9 % (45.0-75.0) Lymphocytes (%) (Auto) 19.9 % (20.0-45.0) L Monocytes (%) (Auto) 6.6 % (1.0-10.0) Eosinophils (%) (Auto) 0.1 % (0.0-3.0) Basophils (%) (Auto) 0.5 % (0.0-2.0) Prothrombin Time 13.6 SEC (9.30-11.50) H Prothromb Time International Ratio 1.3 (0.9-1.1) H Activated Partial Thromboplast Time 30 SEC (23-33) Sodium Level 166 MMOL/L (136-145) *H Potassium Level 3.7 MMOL/L (3.5-5.1) Chloride Level 129 MMOL/L (98-107) H Carbon Dioxide Level 29 MMOL/L (21-32) Anion Gap 8 mmol/L (5-15) Blood Urea Nitrogen 10 mg/dL (7-18) Creatinine 1.7 MG/DL (0.55-1.30) H Estimat Glomerular Filtration Rate 38.2 mL/min (>60) Glucose Level 89 MG/DL (74-106) Calcium Level 7.0 MG/DL (8.5-10.1) L Total Bilirubin 0.3 MG/DL (0.2-1.0) Aspartate Amino Transf (AST/SGOT) 28 U/L (15-37) Alanine Aminotransferase (ALT/SGPT) 15 U/L (12-78) Alkaline Phosphatase 92 U/L (46-116) Total Protein 5.0 G/DL (6.4-8.2) L Albumin 1.1 G/DL (3.4-5.0) L Globulin 3.9 g/dL Albumin/Globulin Ratio 0.3 (1.0-2.7) L Plan Problems: (1) Incarcerated ventral hernia Assessment & Plan: 54-year-old female multi-medical comorbidities prior midline incision unknown prior surgery but has developed a incisional hernia that seems to be incarcerated at this time. On examination I was able to note the hernia facial grimacing by patient upon manipulation able to only partially reduce it and have ordered a stat CT scan. Case was discussed with primary care physician medical teams. Patient COVID positive abnormal labs will optimize await imaging findings and plan for potential surgical intervention. N.p.o. IV fluids IV antibiotics trend labs we will follow with recommendations thank you for let me participate in patient's care discussed with family and medical team plan for reduction and repair patient high risk, covid +, labs noted Periumbilical ventral hernia, containing a loop of what is probably proximal ileum. Mildly distended fluid-filled small bowel loops leading into this may indicate a slight degree of small bowel obstruction. However, small bowel loops are also mildly dilated distally. Evidence of prior gastric surgery, cholecystectomy and appendectomy Evidence of prior abdominal wall hernia repair Fatty liver Diffuse edema of the subcutaneous fat Small to moderate left pleural effusion. Associated compressive atelectasis at the left lung base Bronchovascular groundglass opacities in the bilateral lungs, presumably related to stated clinical history of COVID infection Right renal cyst Saha catheter. Some retained urine within the bladder despite this Old healed right rib fracture. Degenerative changes of the right hip Postop status post reduction repair. Extubated doing well recovering Labs stable Oral diet as tolerated Local wound care We will follow with recommendations thank you (2) Atypical pneumonia (3) Acute febrile illness (4) Hypernatremia (5) Hypoglycemia (6) Renal failure (7) Malnutrition (8) UTI (urinary tract infection) (9) HTN (hypertension) (10) Suspected 2019-nCoV infection Aleksey Vargas Dec 26, 2019 14:38
--- NOTE | 2019-12-26 14:41 | NUR ---
P.T Note: Pt was transferred to ICU due to change in medical status. D/C P.T services.
--- NOTE | 2019-12-26 15:25 | Cardiac Electrophysiology PN ---
Assessment/Plan Assessment/Plan 1. Hypotension. Likely due to dehydration as Sodium was 169 on arrival This is likely due to patient's underlying pneumonic process. Echocardiogram EF 65% 2. History of hypertension, on p.r.n. IV hydralazine. 3. Severe hypernatremia. Patient is on IV fluid per Dr. Pichardo. 4. COVID-19PNA in isolation. 5. K 6.0. Erroneous. Repeat 3.4 6. Incarcerated incisional ventral hernia and Bowel obstruction.S/P surgery by Dr Vargas. 7. Respiratory failure, extubated today DW RN Subjective Subjective Covid positive in ICU. Extubated today. S/P incarcerated ventral hernia surgery yesterday Objective Last 24 Hour Vital Signs Date Time Temp Pulse Resp B/P (MAP) Pulse Ox O2 Delivery O2 Flow Rate FiO2 12/26/19 13:00 2.0 12/26/19 13:00 98 14 118/82 (94) 100 12/26/19 12:15 68 18 98 12/26/19 12:00 112 12/26/19 12:00 Mechanical Ventilator 12/26/19 12:00 107 19 124/87 (99) 100 12/26/19 12:00 40 12/26/19 11:14 98 16 40 40 12/26/19 11:00 94 19 118/77 (91) 100 12/26/19 10:45 100 12/26/19 10:00 98 19 106/71 (83) 100 12/26/19 09:00 109 18 96/63 (74) 100 12/26/19 08:00 Mechanical Ventilator 12/26/19 08:00 40 12/26/19 08:00 98 12/26/19 08:00 113 20 112/73 (86) 100 12/26/19 07:00 108 19 105/69 (81) 100 12/26/19 06:00 114 20 109/68 (82) 100 12/26/19 05:00 82 14 108/61 (77) 100 12/26/19 04:00 99.0 110 14 98/62 (74) 100 12/26/19 04:00 Mechanical Ventilator 12/26/19 03:20 115 17 40 12/26/19 03:16 117 12/26/19 03:00 117 13 113/73 (86) 100 12/26/19 02:00 102 18 99/68 (78) 100 12/26/19 01:00 108 17 98/65 (76) 100 12/26/19 00:30 106 17 112/78 (89) 100 12/26/19 00:00 Mechanical Ventilator 12/26/19 00:00 99.4 110 16 102/63 (76) 100 12/25/19 23:54 112 17 40 12/25/19 23:04 92 12/25/19 23:00 102 14 93/56 (68) 100 12/25/19 22:15 124 18 100/65 (77) 100 12/25/19 22:00 110 14 93/58 (70) 100 12/25/19 21:30 106 14 91/58 (69) 100 12/25/19 21:15 103 14 88/53 (65) 100 12/25/19 21:00 107 14 89/52 (64) 100 12/25/19 20:45 116 14 91/53 (66) 100 12/25/19 20:30 131 17 107/67 (80) 100 12/25/19 20:15 123 18 105/66 (79) 100 12/25/19 20:00 100.4 115 19 108/60 (76) 100 12/25/19 20:00 Mechanical Ventilator 12/25/19 19:51 97 12/25/19 19:45 85 14 89/56 (67) 100 12/25/19 19:21 84 14 89/55 (66) 100 12/25/19 19:20 130 15 40 12/25/19 19:00 84 14 89/55 (66) 100 12/25/19 18:21 58 14 118/67 (84) 100 12/25/19 18:21 58 13 118/67 (84) 100 12/25/19 18:15 57 14 123/72 (89) 100 12/25/19 18:00 56 14 132/84 (100) 100 12/25/19 17:30 97 11 138/91 (107) 100 12/25/19 17:00 59 14 140/80 (100) 100 12/25/19 16:45 93.7 61 14 142/87 (105) 100 12/25/19 16:30 63 13 125/85 (98) 100 7/8/20 16:27 84 17 135/86 (102) 100 12/25/19 16:00 67 12/25/19 16:00 93.0 63 17 141/87 (105) 100 12/25/19 16:00 Mechanical Ventilator 12/25/19 15:45 56 12 100 12/25/19 15:36 67 14 100 12/25/19 15:33 67 14 100 Mechanical Ventilator 100 Intake and Output 12/25/19 12/26/19 19:00 07:00 Intake Total 642.25 ml 1410.4167 ml Output Total 1075 ml 770 ml Balance -432.75 ml 640.4167 ml IV Total 392.25 ml 1410.4167 ml Blood Product 250 ml Output Urine Total 1075 ml 770 ml # Bowel Movements 3 1 Laboratory Tests Test 12/26/19 04:10 White Blood Count 10.0 K/UL (4.8-10.8) Red Blood Count 2.69 M/UL (4.20-5.40) L Hemoglobin 8.5 G/DL (12.0-16.0) L Hematocrit 27.8 % (37.0-47.0) L Mean Corpuscular Volume 103 FL (80-99) H Mean Corpuscular Hemoglobin 31.5 PG (27.0-31.0) H Mean Corpuscular Hemoglobin Concent 30.5 G/DL (32.0-36.0) L Red Cell Distribution Width 17.6 % (11.6-14.8) H Platelet Count 125 K/UL (150-450) L Mean Platelet Volume 6.9 FL (6.5-10.1) Neutrophils (%) (Auto) 72.9 % (45.0-75.0) Lymphocytes (%) (Auto) 19.9 % (20.0-45.0) L Monocytes (%) (Auto) 6.6 % (1.0-10.0) Eosinophils (%) (Auto) 0.1 % (0.0-3.0) Basophils (%) (Auto) 0.5 % (0.0-2.0) Prothrombin Time 13.6 SEC (9.30-11.50) H Prothromb Time International Ratio 1.3 (0.9-1.1) H Activated Partial Thromboplast Time 30 SEC (23-33) Sodium Level 166 MMOL/L (136-145) *H Potassium Level 3.7 MMOL/L (3.5-5.1) Chloride Level 129 MMOL/L (98-107) H Carbon Dioxide Level 29 MMOL/L (21-32) Anion Gap 8 mmol/L (5-15) Blood Urea Nitrogen 10 mg/dL (7-18) Creatinine 1.7 MG/DL (0.55-1.30) H Estimat Glomerular Filtration Rate 38.2 mL/min (>60) Glucose Level 89 MG/DL (74-106) Calcium Level 7.0 MG/DL (8.5-10.1) L Total Bilirubin 0.3 MG/DL (0.2-1.0) Aspartate Amino Transf (AST/SGOT) 28 U/L (15-37) Alanine Aminotransferase (ALT/SGPT) 15 U/L (12-78) Alkaline Phosphatase 92 U/L (46-116) Total Protein 5.0 G/DL (6.4-8.2) L Albumin 1.1 G/DL (3.4-5.0) L Globulin 3.9 g/dL Albumin/Globulin Ratio 0.3 (1.0-2.7) L Objective HEAD AND NECK: no JVD. LUNGS: Coarse rhonchi. CARDIOVASCULAR: regular S1, S2. ABDOMEN: Soft. S/P hernia surgery EXTREMITIES: No pitting edema. Steffen Mera MD Dec 26, 2019 15:25
--- NOTE | 2019-12-26 15:45 | NUR ---
NURSE NOTES: Patient is confused. Able to follow simple commands. Discontinued restraints. Both hands are warm to touch. Will continue plan of care.
--- NOTE | 2019-12-26 17:02 | NUR ---
NURSE NOTES: Bed bath given. Patient awake, confused and able to follow commands.
--- NOTE | 2019-12-26 18:12 | NUR ---
NURSE NOTES: Offered diner. 50% of intake. Kept dry, clean and comfortable.
--- NOTE | 2019-12-26 19:00 | NUR ---
HAND-OFF: Report given to [facility]. Endorsed plan of care.
--- NOTE | 2019-12-26 19:01 | NUR ---
NURSE NOTES: Received patient from [facility]. Will continue plan of care.
--- NOTE | 2019-12-26 20:00 | NUR ---
NURSE NOTES: Patient is awake and alert x1, very confused and uncomprehensible. She was extubated today around 1300 and is currently on 2L nasal cannula; O2sat 100% and shows no distress. Left EJ continues to run D5W @125ml/hr, right hand 20g saline locked. On clear liquid diet. Safety measures in place; bed low, locked and alarm is on. Will continue plan of care. BP:115/99 HR:80 RESP:12, TEMP:97.1F axillary.
--- NOTE | 2019-12-26 22:00 | NUR ---
NURSE NOTES: Patient is sleeping comfortably. Cold to touch; blankets provided to patient. No changes in condition.
[2019-12-27] VITALS (38 sets, daily range): BP systolic 93–121; BP diastolic 61–86
--- NOTE | 2019-12-27 | NUR ---
NURSE NOTES: Turned and repositioned. No other changes in patient condition. Vital signs stable.
--- NOTE | 2019-12-27 02:00 | NUR ---
NURSE NOTES: BP:106/72, HR:84, O2sat:100%, RESP:21. Safety measures are on; bed low, locked and alarm is on.
--- NOTE | 2019-12-27 04:00 | NUR ---
NURSE NOTES: Bed bath given, linens changed, turned and repositioned. Patient is comfortable.
[2019-12-27 05:17] LABS: ANION GAP 5 mmol/L (5-15); BLOOD UREA NITROGEN 10 mg/dL (7-18); CARBON DIOXIDE 31 MMOL/L (21-32); CHLORIDE 132 MMOL/L (98-107); CREATININE 1.5 MG/DL (0.55-1.30); POTASSIUM 3.3 MMOL/L (3.5-5.1)
[2019-12-27 05:27] LABS: BASOPHILS % (AUTO) 0.6 % (0.0-2.0); EOSINOPHILS % (AUTO) 0.2 % (0.0-3.0); HEMATOCRIT 26.8 % (37.0-47.0); HEMOGLOBIN 8.1 G/DL (12.0-16.0); LYMPHOCYTES % (AUTO) 20.5 % (20.0-45.0); MEAN CORPUSCULAR VOLUME 104 FL (80-99); MONOCYTES % (AUTO) 5.4 % (1.0-10.0); NEUTROPHILS % (AUTO) 73.3 % (45.0-75.0); PLATELET COUNT 125 K/UL (150-450); RED BLOOD COUNT 2.57 M/UL (4.20-5.40); RED CELL DISTRIBUTION WIDTH 16.7 % (11.6-14.8); WHITE BLOOD COUNT 7.4 K/UL (4.8-10.8)
[2019-12-27 05:32] LABS: SODIUM 169 MMOL/L (136-145)
--- NOTE | 2019-12-27 06:00 | NUR ---
NURSE NOTES: Patient request something to eat. She is on clear liq diet. Jello and juice given. 1:1 feeder. Patient is satisfied.
--- NOTE | 2019-12-27 07:26 | NUR ---
HAND-OFF: Report given to [facility].
--- NOTE | 2019-12-27 07:27 | NUR ---
NURSE NOTES: Received patient from Meryl CHRIS. Patient is awake, alert and oriented x2-x3. Sinus Tachycardia on the heart monitor, HR 108. Receiving oxygen via nasal cannula at 2L/min, O2 saturation at 100%. IV site is Left Right Hand 20g receiving D5W at 125cc/hr, Left EJ 18g is patent and intact. Saha catheter is intact and draining. Bed is locked, placed in lowest position, side rails up x3, bed alarm on, call light within reach. Will continue to monitor.
--- NOTE | 2019-12-27 07:55 | NUR ---
NURSE NOTES: Patient seen and assessed by Dr. Sandoval.
--- NOTE | 2019-12-27 07:56 | General Progress Note ---
Assessment/Plan Problem List: (1) Suspected 2019-nCoV infection ICD Codes: Z20.828 - Contact with and (suspected) exposure to other viral communicable diseases SNOMED: 487775609 (2) Hypoglycemia ICD Codes: E16.2 - Hypoglycemia, unspecified SNOMED: 698912130 (3) Hypernatremia ICD Codes: E87.0 - Hyperosmolality and hypernatremia SNOMED: 444328156 (4) Atypical pneumonia ICD Codes: J18.9 - Pneumonia, unspecified organism SNOMED: 116350498 (5) Acute febrile illness ICD Codes: R50.9 - Fever, unspecified SNOMED: 018257629 Status: unchanged Assessment/Plan: continue glucose monitoring no need for insulin hypoglycemia protocol in order Subjective Allergies: Coded Allergies: IBUPROFEN (Verified Allergy, Unknown, 12/20/19) Subjective events noted glucose values are stable no recurrence of hypoglycemia Item Value Date Time Glucose Level 78 MG/DL 12/27/19 0405 Objective Last 24 Hour Vital Signs Date Time Temp Pulse Resp B/P (MAP) Pulse Ox O2 Delivery O2 Flow Rate FiO2 12/27/19 07:15 97 21 108/71 (83) 100 12/27/19 07:00 101 20 108/75 (86) 100 12/27/19 06:45 100 18 101/70 (80) 100 12/27/19 06:30 79 20 95/68 (77) 100 12/27/19 06:15 96 21 93/61 (72) 12/27/19 06:00 94 17 95/74 (81) 12/27/19 05:45 92 22 104/74 (84) 100 12/27/19 05:30 90 16 115/86 (96) 100 12/27/19 05:15 96 18 105/70 (82) 100 12/27/19 05:00 94 17 105/68 (80) 100 12/27/19 04:45 97 16 105/69 (81) 100 12/27/19 04:30 91 20 98/74 (82) 100 12/27/19 04:15 92 17 99/71 (80) 100 12/27/19 04:00 98.0 95 15 104/74 (84) 100 12/27/19 04:00 Nasal Cannula 2.0 Nasal Cannula 2.0 12/27/19 03:45 89 21 121/71 (88) 100 12/27/19 03:30 101 15 112/67 (82) 100 12/27/19 03:30 103 12/27/19 03:15 101 15 102/74 (83) 99 12/27/19 03:00 109 16 108/77 (87) 100 12/27/19 02:45 77 22 105/73 (84) 100 12/27/19 02:30 83 24 109/72 (84) 100 12/27/19 02:15 82 23 106/72 (83) 100 12/27/19 02:00 79 23 108/73 (85) 100 12/27/19 01:45 75 23 107/70 (82) 100 12/27/19 01:30 75 23 106/71 (83) 100 12/27/19 01:15 71 24 116/73 (87) 100 12/27/19 01:00 68 23 106/78 (87) 100 12/27/19 00:45 68 20 106/64 (78) 12/27/19 00:30 69 23 106/74 (85) 100 12/27/19 00:15 66 23 107/77 (87) 100 12/27/19 00:00 Nasal Cannula 2.0 Nasal Cannula 2.0 12/27/19 00:00 97.7 72 22 102/74 (83) 100 12/26/19 23:45 75 23 101/63 (76) 100 12/26/19 23:30 66 21 112/75 (87) 12/26/19 23:27 72 12/26/19 23:15 54 21 103/67 (79) 12/26/19 23:00 60 21 116/78 (91) 12/26/19 22:45 62 22 123/72 (89) 12/26/19 22:30 60 22 105/68 (80) 12/26/19 22:15 60 23 103/66 (78) 100 12/26/19 22:00 68 23 109/67 (81) 100 12/26/19 21:45 71 23 99/67 (78) 100 12/26/19 21:30 81 24 101/71 (81) 100 12/26/19 21:15 71 21 99/68 (78) 12/26/19 21:00 76 21 92/55 (67) 12/26/19 20:23 96 12/26/19 20:00 97.1 80 15 110/84 (93) 100 12/26/19 20:00 Nasal Cannula 2.0 Nasal Cannula 2.0 12/26/19 19:45 79 14 105/82 (90) 100 12/26/19 19:30 82 14 111/84 (93) 84 12/26/19 19:15 78 14 111/81 (91) 100 12/26/19 19:00 81 14 111/82 (92) 100 12/26/19 18:00 91 18 111/75 (87) 100 12/26/19 17:00 82 22 120/100 (107) 100 12/26/19 16:00 96.1 91 15 109/67 (81) 100 12/26/19 16:00 Nasal Cannula 2.0 12/26/19 16:00 90 12/26/19 16:00 2.0 12/26/19 16:00 91 15 109/67 (81) 100 12/26/19 15:00 116 24 98/55 (69) 100 12/26/19 14:00 85 15 109/72 (84) 100 12/26/19 13:00 2.0 12/26/19 13:00 Simple Mask 2.0 28 12/26/19 13:00 98 14 118/82 (94) 100 12/26/19 12:15 68 18 98 12/26/19 12:00 112 12/26/19 12:00 Mechanical Ventilator 12/26/19 12:00 97.2 107 19 124/87 (99) 100 12/26/19 12:00 107 19 124/87 (99) 100 12/26/19 12:00 40 12/26/19 11:14 98 16 40 40 12/26/19 11:00 94 19 118/77 (91) 100 12/26/19 10:45 100 12/26/19 10:00 98 19 106/71 (83) 100 12/26/19 09:00 109 18 96/63 (74) 100 12/26/19 08:00 Mechanical Ventilator 12/26/19 08:00 40 12/26/19 08:00 98 12/26/19 08:00 113 20 112/73 (86) 100 Intake and Output 12/26/19 12/27/19 19:00 07:00 Intake Total 1630 ml 1485 ml Output Total 1190 ml 1125 ml Balance 440 ml 360 ml Intake Oral 240 ml IV Total 1390 ml 1485 ml Output Urine Total 1190 ml 1125 ml # Bowel Movements 1 2 Laboratory Tests 12/27/19 04:05: White Blood Count 7.4, Red Blood Count 2.57L, Hemoglobin 8.1L, Hematocrit 26.8L , Mean Corpuscular Volume 104H, Mean Corpuscular Hemoglobin 31.5H, Mean Corpuscular Hemoglobin Concent 30.3L, Red Cell Distribution Width 16.7H, Platelet Count 125L, Mean Platelet Volume 6.6, Neutrophils (%) (Auto) 73.3, Lymphocytes (%) (Auto) 20.5, Monocytes (%) (Auto) 5.4, Eosinophils (%) (Auto) 0.2, Basophils (%) (Auto) 0.6, Sodium Level 169*H, Potassium Level 3.3L, Chloride Level 132H, Carbon Dioxide Level 31, Anion Gap 5, Blood Urea Nitrogen 10, Creatinine 1.5H, Estimat Glomerular Filtration Rate 44.1, Glucose Level 78, Calcium Level 7.0L Height (Feet): 5 Height (Inches): 4.00 Weight (Pounds): 155 Objective Current Medications Medications (Trade) Dose Ordered Sig/Venita Route PRN Reason Start Time Stop Time Status Last Admin Dose Admin Benztropine Mesylate (Cogentin) 2 mg BID ORAL 12/25/19 18:00 01/20/20 08:59 12/26/19 17:23 Cefepime HCl 1 gm/ Dextrose 55 ml @ 110 mls/hr Q24H IVPB 12/26/19 21:00 01/02/20 20:59 12/26/19 20:18 Dexamethasone Sodium Phosphate (Decadron 10mg/ ml Inj) 6 mg DAILY IV 12/26/19 09:00 01/01/20 08:59 12/26/19 08:30 Dextrose 1,000 ml @ 125 mls/hr Q8H IV 12/25/19 16:45 01/22/20 08:14 12/27/19 01:00 Divalproex Sodium (Depakote ER) 500 mg DAILY ORAL 12/26/19 09:00 01/20/20 08:59 Docusate Sodium (Colace) 100 mg THREE TIMES A DAY ORAL 12/25/19 18:00 01/20/20 08:59 12/26/19 17:23 Haloperidol (Haldol) 5 mg TID ORAL 12/25/19 18:00 02/04/20 13:59 12/26/19 17:23 Heparin Sodium (Porcine) (Heparin 5000 units/ml) 5,000 units EVERY 12 HOURS SUBQ 12/26/19 09:00 02/09/20 08:59 12/26/19 20:19 Hydralazine HCl (Apresoline) 10 mg Q4H PRN IV Blood pressure over 160 systol 12/25/19 16:38 03/24/20 16:37 Lorazepam (Ativan 2mg/ml 1ml) 1 mg Q4H PRN IV For Anxiety 12/25/19 16:38 01/01/20 16:37 Lorazepam (Ativan) 1 mg Q6H PRN ORAL Agitation 12/25/19 16:38 01/01/20 16:37 Pantoprazole (Protonix) 40 mg EVERY 12 HOURS IVP 12/25/19 21:00 01/24/20 20:59 12/26/19 20:19 Ziprasidone (Geodon) 40 mg Q12HR ORAL 12/25/19 21:00 02/04/20 20:59 12/26/19 20:19 Subhash Yang MD Dec 27, 2019 07:56
[2019-12-27] MEDS: Benztropine 1mg tab ORAL SCH ×2 (08:27→17:07)
[2019-12-27] MEDS: Ziprasidone 20mg cap ORAL SCH ×2 (08:27→21:30)
[2019-12-27] MEDS: Docusate 100mg cap ORAL SCH ×3 (08:27→17:08)
[2019-12-27] MEDS: Depakote ER 500mg tab ORAL SCH (08:27)
[2019-12-27] MEDS: Pantoprazole Inj IVP SCH ×2 (08:28→21:29)
[2019-12-27] MEDS: Heparin 5000 units/ml inj SUBQ SCH ×2 (08:28→21:33)
[2019-12-27] MEDS: dexAMETHasone 10mg/ml Inj IV SCH (08:28)
--- NOTE | 2019-12-27 08:30 | NUR ---
NURSE NOTES: Medications given as prescribed, no adverse reaction noted. Fed patient at bedside, patient consumed 100% of breakfast. Patient is confused, afebrile, and showing no signs of acute distress. Will continue to monitor.
--- NOTE | 2019-12-27 09:09 | General Progress Note ---
Assessment/Plan Problem List: (1) UTI (urinary tract infection) ICD Codes: N39.0 - Urinary tract infection, site not specified SNOMED: 61572333 (2) Malnutrition ICD Codes: E46 - Unspecified protein-calorie malnutrition SNOMED: 36643456 (3) Renal failure ICD Codes: N19 - Unspecified kidney failure SNOMED: 84900051 (4) HTN (hypertension) ICD Codes: I10 - Essential (primary) hypertension SNOMED: 16634859 (5) Hypoglycemia ICD Codes: E16.2 - Hypoglycemia, unspecified SNOMED: 386347088 (6) Hypernatremia ICD Codes: E87.0 - Hyperosmolality and hypernatremia SNOMED: 374236200 (7) Suspected 2019-nCoV infection ICD Codes: Z20.828 - Contact with and (suspected) exposure to other viral communicable diseases SNOMED: 787978979 Status: unchanged Assessment/Plan: o2 pulm tx abx pt diet cbc bmp am wound care ltach eval Subjective Constitutional: Reports: weakness Allergies: Coded Allergies: IBUPROFEN (Verified Allergy, Unknown, 12/20/19) All Systems: reviewed and negative except above Subjective o2nc in icu Objective Last 24 Hour Vital Signs Date Time Temp Pulse Resp B/P (MAP) Pulse Ox O2 Delivery O2 Flow Rate FiO2 12/27/19 07:15 97 21 108/71 (83) 100 12/27/19 07:00 101 20 108/75 (86) 100 12/27/19 06:45 100 18 101/70 (80) 100 12/27/19 06:30 79 20 95/68 (77) 100 12/27/19 06:15 96 21 93/61 (72) 12/27/19 06:00 94 17 95/74 (81) 12/27/19 05:45 92 22 104/74 (84) 100 12/27/19 05:30 90 16 115/86 (96) 100 12/27/19 05:15 96 18 105/70 (82) 100 12/27/19 05:00 94 17 105/68 (80) 100 12/27/19 04:45 97 16 105/69 (81) 100 12/27/19 04:30 91 20 98/74 (82) 100 12/27/19 04:15 92 17 99/71 (80) 100 12/27/19 04:00 98.0 95 15 104/74 (84) 100 12/27/19 04:00 Nasal Cannula 2.0 Nasal Cannula 2.0 12/27/19 03:45 89 21 121/71 (88) 100 12/27/19 03:30 101 15 112/67 (82) 100 12/27/19 03:30 103 12/27/19 03:15 101 15 102/74 (83) 99 12/27/19 03:00 109 16 108/77 (87) 100 12/27/19 02:45 77 22 105/73 (84) 100 12/27/19 02:30 83 24 109/72 (84) 100 12/27/19 02:15 82 23 106/72 (83) 100 12/27/19 02:00 79 23 108/73 (85) 100 12/27/19 01:45 75 23 107/70 (82) 100 12/27/19 01:30 75 23 106/71 (83) 100 12/27/19 01:15 71 24 116/73 (87) 100 12/27/19 01:00 68 23 106/78 (87) 100 12/27/19 00:45 68 20 106/64 (78) 12/27/19 00:30 69 23 106/74 (85) 100 12/27/19 00:15 66 23 107/77 (87) 100 12/27/19 00:00 Nasal Cannula 2.0 Nasal Cannula 2.0 12/27/19 00:00 97.7 72 22 102/74 (83) 100 12/26/19 23:45 75 23 101/63 (76) 100 12/26/19 23:30 66 21 112/75 (87) 12/26/19 23:27 72 12/26/19 23:15 54 21 103/67 (79) 12/26/19 23:00 60 21 116/78 (91) 12/26/19 22:45 62 22 123/72 (89) 12/26/19 22:30 60 22 105/68 (80) 12/26/19 22:15 60 23 103/66 (78) 100 12/26/19 22:00 68 23 109/67 (81) 100 12/26/19 21:45 71 23 99/67 (78) 100 12/26/19 21:30 81 24 101/71 (81) 100 12/26/19 21:15 71 21 99/68 (78) 12/26/19 21:00 76 21 92/55 (67) 12/26/19 20:23 96 12/26/19 20:00 97.1 80 15 110/84 (93) 100 12/26/19 20:00 Nasal Cannula 2.0 Nasal Cannula 2.0 12/26/19 19:45 79 14 105/82 (90) 100 12/26/19 19:30 82 14 111/84 (93) 84 12/26/19 19:15 78 14 111/81 (91) 100 12/26/19 19:00 81 14 111/82 (92) 100 12/26/19 18:00 91 18 111/75 (87) 100 12/26/19 17:00 82 22 120/100 (107) 100 12/26/19 16:00 96.1 91 15 109/67 (81) 100 12/26/19 16:00 Nasal Cannula 2.0 12/26/19 16:00 90 12/26/19 16:00 2.0 12/26/19 16:00 91 15 109/67 (81) 100 12/26/19 15:00 116 24 98/55 (69) 100 12/26/19 14:00 85 15 109/72 (84) 100 12/26/19 13:00 2.0 12/26/19 13:00 Simple Mask 2.0 28 12/26/19 13:00 98 14 118/82 (94) 100 12/26/19 12:15 68 18 98 12/26/19 12:00 112 12/26/19 12:00 Mechanical Ventilator 12/26/19 12:00 97.2 107 19 124/87 (99) 100 12/26/19 12:00 107 19 124/87 (99) 100 12/26/19 12:00 40 12/26/19 11:14 98 16 40 40 12/26/19 11:00 94 19 118/77 (91) 100 12/26/19 10:45 100 12/26/19 10:00 98 19 106/71 (83) 100 Intake and Output 12/26/19 12/27/19 19:00 07:00 Intake Total 1630 ml 1485 ml Output Total 1190 ml 1125 ml Balance 440 ml 360 ml Intake Oral 240 ml IV Total 1390 ml 1485 ml Output Urine Total 1190 ml 1125 ml # Bowel Movements 1 2 Laboratory Tests 12/27/19 04:05: White Blood Count 7.4, Red Blood Count 2.57L, Hemoglobin 8.1L, Hematocrit 26.8L , Mean Corpuscular Volume 104H, Mean Corpuscular Hemoglobin 31.5H, Mean Corpuscular Hemoglobin Concent 30.3L, Red Cell Distribution Width 16.7H, Platelet Count 125L, Mean Platelet Volume 6.6, Neutrophils (%) (Auto) 73.3, Lymphocytes (%) (Auto) 20.5, Monocytes (%) (Auto) 5.4, Eosinophils (%) (Auto) 0.2, Basophils (%) (Auto) 0.6, Sodium Level 169*H, Potassium Level 3.3L, Chloride Level 132H, Carbon Dioxide Level 31, Anion Gap 5, Blood Urea Nitrogen 10, Creatinine 1.5H, Estimat Glomerular Filtration Rate 44.1, Glucose Level 78, Calcium Level 7.0L, Phosphorus Level [Pending], Magnesium Level [Pending], Total Bilirubin [Pending], Direct Bilirubin [Pending], Aspartate Amino Transf ( AST/SGOT) [Pending], Alanine Aminotransferase (ALT/SGPT) [Pending], Alkaline Phosphatase [Pending], Total Protein [Pending], Albumin [Pending] Height (Feet): 5 Height (Inches): 4.00 Weight (Pounds): 155 General Appearance: lethargic EENT: normal ENT inspection Neck: normal alignment Cardiovascular: normal rate, regular rhythm Respiratory/Chest: no respiratory distress, no accessory muscle use Extremities: normal inspection Skin: normal pigmentation Ricky Potter DO Dec 27, 2019 09:09
[2019-12-27 09:19] LABS: ALANINE AMINOTRANSFERASE 10 U/L (12-78); ALKALINE PHOSPHATASE 88 U/L (46-116); ASPARTATE AMINO TRANSFERASE 26 U/L (15-37); BILIRUBIN,DIRECT 0.1 MG/DL (0.0-0.3); BILIRUBIN,TOTAL 0.3 MG/DL (0.2-1.0); PHOSPHORUS 3.4 MG/DL (2.5-4.9)
--- NOTE | 2019-12-27 09:19 | Surgery Progress Note ---
Surgery Progress Note Subjective Procedure Performed 1 open incarcerated ventral hernia incisional repair 2 right rectus musculocutaneous flap 3 left rectus musculocutaneous flap 4 implantation of mesh Bard large double-sided 5 open lysis of adhesions 6 localization tissue transfer with use of skin flaps to close the abdominal wall defect Additional Comments doing much better awake alert responsive tolerating diet +flatus wound c/d/i Objective Last 24 Hour Vital Signs Date Time Temp Pulse Resp B/P (MAP) Pulse Ox O2 Delivery O2 Flow Rate FiO2 12/27/19 09:00 102 20 120/78 (92) 100 12/27/19 08:30 97 17 104/72 (83) 100 12/27/19 08:00 97.5 104 15 105/74 (84) 100 12/27/19 07:15 97 21 108/71 (83) 100 12/27/19 07:00 101 20 108/75 (86) 100 12/27/19 06:45 100 18 101/70 (80) 100 12/27/19 06:30 79 20 95/68 (77) 100 12/27/19 06:15 96 21 93/61 (72) 12/27/19 06:00 94 17 95/74 (81) 12/27/19 05:45 92 22 104/74 (84) 100 12/27/19 05:30 90 16 115/86 (96) 100 12/27/19 05:15 96 18 105/70 (82) 100 12/27/19 05:00 94 17 105/68 (80) 100 12/27/19 04:45 97 16 105/69 (81) 100 12/27/19 04:30 91 20 98/74 (82) 100 12/27/19 04:15 92 17 99/71 (80) 100 12/27/19 04:00 98.0 95 15 104/74 (84) 100 12/27/19 04:00 Nasal Cannula 2.0 Nasal Cannula 2.0 12/27/19 03:45 89 21 121/71 (88) 100 12/27/19 03:30 101 15 112/67 (82) 100 12/27/19 03:30 103 12/27/19 03:15 101 15 102/74 (83) 99 12/27/19 03:00 109 16 108/77 (87) 100 12/27/19 02:45 77 22 105/73 (84) 100 12/27/19 02:30 83 24 109/72 (84) 100 12/27/19 02:15 82 23 106/72 (83) 100 12/27/19 02:00 79 23 108/73 (85) 100 12/27/19 01:45 75 23 107/70 (82) 100 12/27/19 01:30 75 23 106/71 (83) 100 12/27/19 01:15 71 24 116/73 (87) 100 12/27/19 01:00 68 23 106/78 (87) 100 12/27/19 00:45 68 20 106/64 (78) 12/27/19 00:30 69 23 106/74 (85) 100 12/27/19 00:15 66 23 107/77 (87) 100 12/27/19 00:00 Nasal Cannula 2.0 Nasal Cannula 2.0 12/27/19 00:00 97.7 72 22 102/74 (83) 100 12/26/19 23:45 75 23 101/63 (76) 100 12/26/19 23:30 66 21 112/75 (87) 12/26/19 23:27 72 12/26/19 23:15 54 21 103/67 (79) 12/26/19 23:00 60 21 116/78 (91) 12/26/19 22:45 62 22 123/72 (89) 12/26/19 22:30 60 22 105/68 (80) 12/26/19 22:15 60 23 103/66 (78) 100 12/26/19 22:00 68 23 109/67 (81) 100 12/26/19 21:45 71 23 99/67 (78) 100 12/26/19 21:30 81 24 101/71 (81) 100 12/26/19 21:15 71 21 99/68 (78) 12/26/19 21:00 76 21 92/55 (67) 12/26/19 20:23 96 12/26/19 20:00 97.1 80 15 110/84 (93) 100 12/26/19 20:00 Nasal Cannula 2.0 Nasal Cannula 2.0 12/26/19 19:45 79 14 105/82 (90) 100 12/26/19 19:30 82 14 111/84 (93) 84 12/26/19 19:15 78 14 111/81 (91) 100 12/26/19 19:00 81 14 111/82 (92) 100 12/26/19 18:00 91 18 111/75 (87) 100 12/26/19 17:00 82 22 120/100 (107) 100 12/26/19 16:00 96.1 91 15 109/67 (81) 100 12/26/19 16:00 Nasal Cannula 2.0 12/26/19 16:00 90 12/26/19 16:00 2.0 12/26/19 16:00 91 15 109/67 (81) 100 12/26/19 15:00 116 24 98/55 (69) 100 12/26/19 14:00 85 15 109/72 (84) 100 12/26/19 13:00 2.0 12/26/19 13:00 Simple Mask 2.0 28 12/26/19 13:00 98 14 118/82 (94) 100 12/26/19 12:15 68 18 98 12/26/19 12:00 112 12/26/19 12:00 Mechanical Ventilator 12/26/19 12:00 97.2 107 19 124/87 (99) 100 12/26/19 12:00 107 19 124/87 (99) 100 12/26/19 12:00 40 12/26/19 11:14 98 16 40 40 12/26/19 11:00 94 19 118/77 (91) 100 12/26/19 10:45 100 12/26/19 10:00 98 19 106/71 (83) 100 I&O Intake and Output 12/26/19 12/27/19 19:00 07:00 Intake Total 1630 ml 1485 ml Output Total 1190 ml 1125 ml Balance 440 ml 360 ml Intake Oral 240 ml IV Total 1390 ml 1485 ml Output Urine Total 1190 ml 1125 ml # Bowel Movements 1 2 Dressing: dry Wound: clean, dry Cardiovascular: RSR Respiratory: clear Abdomen: soft, non-tender, present bowel sounds Extremities: no tenderness, no cyanosis Laboratory Tests Test 12/27/19 04:05 White Blood Count 7.4 K/UL (4.8-10.8) Red Blood Count 2.57 M/UL (4.20-5.40) L Hemoglobin 8.1 G/DL (12.0-16.0) L Hematocrit 26.8 % (37.0-47.0) L Mean Corpuscular Volume 104 FL (80-99) H Mean Corpuscular Hemoglobin 31.5 PG (27.0-31.0) H Mean Corpuscular Hemoglobin Concent 30.3 G/DL (32.0-36.0) L Red Cell Distribution Width 16.7 % (11.6-14.8) H Platelet Count 125 K/UL (150-450) L Mean Platelet Volume 6.6 FL (6.5-10.1) Neutrophils (%) (Auto) 73.3 % (45.0-75.0) Lymphocytes (%) (Auto) 20.5 % (20.0-45.0) Monocytes (%) (Auto) 5.4 % (1.0-10.0) Eosinophils (%) (Auto) 0.2 % (0.0-3.0) Basophils (%) (Auto) 0.6 % (0.0-2.0) Sodium Level 169 MMOL/L (136-145) *H Potassium Level 3.3 MMOL/L (3.5-5.1) L Chloride Level 132 MMOL/L (98-107) H Carbon Dioxide Level 31 MMOL/L (21-32) Anion Gap 5 mmol/L (5-15) Blood Urea Nitrogen 10 mg/dL (7-18) Creatinine 1.5 MG/DL (0.55-1.30) H Estimat Glomerular Filtration Rate 44.1 mL/min (>60) Glucose Level 78 MG/DL (74-106) Calcium Level 7.0 MG/DL (8.5-10.1) L Phosphorus Level Pending Magnesium Level Pending Total Bilirubin Pending Direct Bilirubin Pending Aspartate Amino Transf (AST/SGOT) Pending Alanine Aminotransferase (ALT/SGPT) Pending Alkaline Phosphatase Pending Total Protein Pending Albumin Pending Plan Problems: (1) Incarcerated ventral hernia Assessment & Plan: 54-year-old female multi-medical comorbidities prior midline incision unknown prior surgery but has developed a incisional hernia that seems to be incarcerated at this time. On examination I was able to note the hernia facial grimacing by patient upon manipulation able to only partially reduce it and have ordered a stat CT scan. Case was discussed with primary care physician medical teams. Patient COVID positive abnormal labs will optimize await imaging findings and plan for potential surgical intervention. N.p.o. IV fluids IV antibiotics trend labs we will follow with recommendations thank you for let me participate in patient's care discussed with family and medical team plan for reduction and repair patient high risk, covid +, labs noted Periumbilical ventral hernia, containing a loop of what is probably proximal ileum. Mildly distended fluid-filled small bowel loops leading into this may indicate a slight degree of small bowel obstruction. However, small bowel loops are also mildly dilated distally. Evidence of prior gastric surgery, cholecystectomy and appendectomy Evidence of prior abdominal wall hernia repair Fatty liver Diffuse edema of the subcutaneous fat Small to moderate left pleural effusion. Associated compressive atelectasis at the left lung base Bronchovascular groundglass opacities in the bilateral lungs, presumably related to stated clinical history of COVID infection Right renal cyst Saha catheter. Some retained urine within the bladder despite this Old healed right rib fracture. Degenerative changes of the right hip Postop status post reduction repair. Extubated doing well recovering Labs stable Oral diet as tolerated Local wound care We will follow with recommendations thank you (2) Atypical pneumonia (3) Acute febrile illness (4) Hypernatremia (5) Hypoglycemia (6) Renal failure (7) Malnutrition (8) UTI (urinary tract infection) (9) HTN (hypertension) (10) Suspected 2019-nCoV infection Aleksey Vargas Dec 27, 2019 09:19
--- NOTE | 2019-12-27 09:30 | NUR ---
RD ASSESSMENT & RECOMMENDATIONS SEE CARE ACTIVITY FOR COMPLETE ASSESSMENT DAILY ESTIMATED NEEDS: Needs based on cardiac, surgery 58.4kg abw 25-30 kcals/kg 0420-3348 total kcals 1.25- 2 g protein/kg 73-116 g total protein 25-30 mL/kg 0850-6678 total fluid mLs NUTRITION DIAGNOSIS: * Altered nutrition related lab values r/t clinical status, as evidenced by critically elev Na on adm (167*-> 169*), elev BUN and creat (22-> wnl, 1.9-> 1.5 repectively), elev BNP (1113 -> 2133). * Increased kcal/prot needs R/T wound healing and surgery as evidenced by pt admitted w/ wounds including full thickness wound @ lower L buttocks and DTPI @ L heel, s/p open incarcerated ventral hernia incisional repair CURRENT DIET:CLEAR LIQUID DIET -> IRVING/ mech soft finely chopped PO DIET RECOMMENDATIONS: Advance diet per surgeon -> SOFT/ LOW NA ADDITIONAL RECOMMENDATIONS: 1) Calibrated bedscale wt 2) Wound healing: Add MVI x 1, Vit C 500mg QD, ZnSO4 220mg QD x 10 days Javed 1pkt BID as tolerated 3) Monitor for hypoglyecmia (BG 64 on 12/24 due to NPO status) 4) Monitor lytes, replete as needed (low K) 5) Monitor hydration status: Na critically elevated 6) Monitor PO acceptance and tolerance
--- NOTE | 2019-12-27 10:18 | Infectious Diseases Prog Note ---
Assessment/Plan Assessment/Plan antibiotics : cefepime A 1. e.coli sepsis 2. COVID 19 pneumonia on 2 liters, 100 percent saturation 3. incarcerated hernia s/p repair with mesh, lysis of adhesions 4. hypertension 5. renal failure 6. bipolar disorder 7. asthma 8. pseudomonas UTI P 1, continue cefepime 5 more days 2. continue dexamethasone day 8 3. continue isolation 4. will follow up cultures Subjective ROS Limited/Unobtainable: Yes Allergies: Coded Allergies: IBUPROFEN (Verified Allergy, Unknown, 12/20/19) Objective Last 24 Hour Vital Signs Date Time Temp Pulse Resp B/P (MAP) Pulse Ox O2 Delivery O2 Flow Rate FiO2 12/27/19 10:00 75 23 111/73 (86) 100 12/27/19 09:00 102 20 120/78 (92) 100 12/27/19 08:30 97 17 104/72 (83) 100 12/27/19 08:00 Nasal Cannula 2.0 Nasal Cannula 2.0 12/27/19 08:00 97.5 104 15 105/74 (84) 100 12/27/19 07:33 104 12/27/19 07:15 97 21 108/71 (83) 100 12/27/19 07:00 101 20 108/75 (86) 100 12/27/19 06:45 100 18 101/70 (80) 100 12/27/19 06:30 79 20 95/68 (77) 100 12/27/19 06:15 96 21 93/61 (72) 12/27/19 06:00 94 17 95/74 (81) 12/27/19 05:45 92 22 104/74 (84) 100 12/27/19 05:30 90 16 115/86 (96) 100 12/27/19 05:15 96 18 105/70 (82) 100 12/27/19 05:00 94 17 105/68 (80) 100 12/27/19 04:45 97 16 105/69 (81) 100 12/27/19 04:30 91 20 98/74 (82) 100 12/27/19 04:15 92 17 99/71 (80) 100 12/27/19 04:00 98.0 95 15 104/74 (84) 100 12/27/19 04:00 Nasal Cannula 2.0 Nasal Cannula 2.0 12/27/19 03:45 89 21 121/71 (88) 100 12/27/19 03:30 101 15 112/67 (82) 100 12/27/19 03:30 103 12/27/19 03:15 101 15 102/74 (83) 99 12/27/19 03:00 109 16 108/77 (87) 100 12/27/19 02:45 77 22 105/73 (84) 100 12/27/19 02:30 83 24 109/72 (84) 100 12/27/19 02:15 82 23 106/72 (83) 100 12/27/19 02:00 79 23 108/73 (85) 100 12/27/19 01:45 75 23 107/70 (82) 100 12/27/19 01:30 75 23 106/71 (83) 100 12/27/19 01:15 71 24 116/73 (87) 100 12/27/19 01:00 68 23 106/78 (87) 100 12/27/19 00:45 68 20 106/64 (78) 12/27/19 00:30 69 23 106/74 (85) 100 12/27/19 00:15 66 23 107/77 (87) 100 12/27/19 00:00 Nasal Cannula 2.0 Nasal Cannula 2.0 12/27/19 00:00 97.7 72 22 102/74 (83) 100 12/26/19 23:45 75 23 101/63 (76) 100 12/26/19 23:30 66 21 112/75 (87) 12/26/19 23:27 72 12/26/19 23:15 54 21 103/67 (79) 12/26/19 23:00 60 21 116/78 (91) 12/26/19 22:45 62 22 123/72 (89) 12/26/19 22:30 60 22 105/68 (80) 12/26/19 22:15 60 23 103/66 (78) 100 12/26/19 22:00 68 23 109/67 (81) 100 12/26/19 21:45 71 23 99/67 (78) 100 12/26/19 21:30 81 24 101/71 (81) 100 12/26/19 21:15 71 21 99/68 (78) 12/26/19 21:00 76 21 92/55 (67) 12/26/19 20:23 96 12/26/19 20:00 97.1 80 15 110/84 (93) 100 12/26/19 20:00 Nasal Cannula 2.0 Nasal Cannula 2.0 12/26/19 19:45 79 14 105/82 (90) 100 12/26/19 19:30 82 14 111/84 (93) 84 12/26/19 19:15 78 14 111/81 (91) 100 12/26/19 19:00 81 14 111/82 (92) 100 12/26/19 18:00 91 18 111/75 (87) 100 12/26/19 17:00 82 22 120/100 (107) 100 12/26/19 16:00 96.1 91 15 109/67 (81) 100 12/26/19 16:00 Nasal Cannula 2.0 12/26/19 16:00 90 12/26/19 16:00 2.0 12/26/19 16:00 91 15 109/67 (81) 100 12/26/19 15:00 116 24 98/55 (69) 100 12/26/19 14:00 85 15 109/72 (84) 100 12/26/19 13:00 2.0 12/26/19 13:00 Simple Mask 2.0 28 12/26/19 13:00 98 14 118/82 (94) 100 12/26/19 12:15 68 18 98 12/26/19 12:00 112 12/26/19 12:00 Mechanical Ventilator 12/26/19 12:00 97.2 107 19 124/87 (99) 100 12/26/19 12:00 107 19 124/87 (99) 100 12/26/19 12:00 40 12/26/19 11:14 98 16 40 40 12/26/19 11:00 94 19 118/77 (91) 100 12/26/19 10:45 100 Height (Feet): 5 Height (Inches): 4.00 Weight (Pounds): 155 Laboratory Tests Test 12/27/19 04:05 White Blood Count 7.4 K/UL (4.8-10.8) Red Blood Count 2.57 M/UL (4.20-5.40) L Hemoglobin 8.1 G/DL (12.0-16.0) L Hematocrit 26.8 % (37.0-47.0) L Mean Corpuscular Volume 104 FL (80-99) H Mean Corpuscular Hemoglobin 31.5 PG (27.0-31.0) H Mean Corpuscular Hemoglobin Concent 30.3 G/DL (32.0-36.0) L Red Cell Distribution Width 16.7 % (11.6-14.8) H Platelet Count 125 K/UL (150-450) L Mean Platelet Volume 6.6 FL (6.5-10.1) Neutrophils (%) (Auto) 73.3 % (45.0-75.0) Lymphocytes (%) (Auto) 20.5 % (20.0-45.0) Monocytes (%) (Auto) 5.4 % (1.0-10.0) Eosinophils (%) (Auto) 0.2 % (0.0-3.0) Basophils (%) (Auto) 0.6 % (0.0-2.0) Sodium Level 169 MMOL/L (136-145) *H Potassium Level 3.3 MMOL/L (3.5-5.1) L Chloride Level 132 MMOL/L (98-107) H Carbon Dioxide Level 31 MMOL/L (21-32) Anion Gap 5 mmol/L (5-15) Blood Urea Nitrogen 10 mg/dL (7-18) Creatinine 1.5 MG/DL (0.55-1.30) H Estimat Glomerular Filtration Rate 44.1 mL/min (>60) Glucose Level 78 MG/DL (74-106) Calcium Level 7.0 MG/DL (8.5-10.1) L Phosphorus Level 3.4 MG/DL (2.5-4.9) Magnesium Level 1.8 MG/DL (1.8-2.4) Total Bilirubin 0.3 MG/DL (0.2-1.0) Direct Bilirubin 0.1 MG/DL (0.0-0.3) Aspartate Amino Transf (AST/SGOT) 26 U/L (15-37) Alanine Aminotransferase (ALT/SGPT) 10 U/L (12-78) L Alkaline Phosphatase 88 U/L (46-116) Total Protein 4.9 G/DL (6.4-8.2) L Albumin 1.0 G/DL (3.4-5.0) L Current Medications Medications (Trade) Dose Ordered Sig/Venita Route PRN Reason Start Time Stop Time Status Last Admin Dose Admin Benztropine Mesylate (Cogentin) 2 mg BID ORAL 12/25/19 18:00 01/20/20 08:59 12/27/19 08:27 Cefepime HCl 1 gm/ Dextrose 55 ml @ 110 mls/hr Q24H IVPB 12/26/19 21:00 01/02/20 20:59 12/26/19 20:18 Dexamethasone Sodium Phosphate (Decadron 10mg/ ml Inj) 6 mg DAILY IV 12/26/19 09:00 01/01/20 08:59 12/27/19 08:28 Dextrose 1,000 ml @ 125 mls/hr Q8H IV 12/25/19 16:45 01/22/20 08:14 12/27/19 08:27 Divalproex Sodium (Depakote ER) 500 mg DAILY ORAL 12/26/19 09:00 01/20/20 08:59 12/27/19 08:27 Docusate Sodium (Colace) 100 mg THREE TIMES A DAY ORAL 12/25/19 18:00 01/20/20 08:59 12/27/19 08:27 Haloperidol (Haldol) 5 mg TID ORAL 12/25/19 18:00 02/04/20 13:59 12/27/19 08:27 Heparin Sodium (Porcine) (Heparin 5000 units/ml) 5,000 units EVERY 12 HOURS SUBQ 12/26/19 09:00 02/09/20 08:59 12/27/19 08:28 Hydralazine HCl (Apresoline) 10 mg Q4H PRN IV Blood pressure over 160 systol 12/25/19 16:38 03/24/20 16:37 Lorazepam (Ativan 2mg/ml 1ml) 1 mg Q4H PRN IV For Anxiety 12/25/19 16:38 01/01/20 16:37 Lorazepam (Ativan) 1 mg Q6H PRN ORAL Agitation 12/25/19 16:38 01/01/20 16:37 Pantoprazole (Protonix) 40 mg EVERY 12 HOURS IVP 12/25/19 21:00 01/24/20 20:59 7/10/20 08:28 Ziprasidone (Geodon) 40 mg Q12HR ORAL 12/25/19 21:00 02/04/20 20:59 12/27/19 08:27 Pneny Montague MD Dec 27, 2019 10:18
--- NOTE | 2019-12-27 10:47 | NUR ---
*-*DISCHARGE PLANNING*-* PATIENT HAS BEEN REFERRED TO: [facility] P: [phone]
--- NOTE | 2019-12-27 11:06 | NUR ---
CASE MANAGEMENT: REVIEW 12/27/2019 SI: e.coli sepsis. COVID 19 pneumonia. open incarcerated ventral hernia incisional repair. VS: T 97.5 HR 104 RR 15 B/P 105/74 SATS 100% ON 2L/NC LABS: NA 169 K 3.3 CL 132 CR 1.5 CA 7 IS;DEXTROSE IV @ 125 ML/HR PROTONIX IV Q12H COGENTIN PO BID DECADRON PO QD GEODON PO Q12H HALDOL PO TID ICU DCP: SNF V. LTACH PLAN OF CARE: tolerating diet wound care ltach eval
--- NOTE | 2019-12-27 11:12 | NUR ---
CASE MANAGEMENT: NOTE DCP NOTE NOTED CALL PLACED TO [facility] AT [facility] X2. AWAITING CALL BACK Addendum: 12/27/19 at 1306 by Sol Carty PATIENT HAS BEEN CLINICALLY AND FINANCIALLY APPROVED FOR [facility] PATIENT IS COVID POSITIVE NEEDING A 10 DAY WAITING PERIOD PRIOR TO TRANSFER TO [facility] ONCOMING TO F/U ON 12/29 WITH [facility] FOR BED ASSIGNMENT IF PATIENT REMAINS STABLE FOR TRANSFER [facility] @ [facility] T: [phone]/F: [phone]
--- NOTE | 2019-12-27 11:40 | Hematology/Onc Progress Note ---
Assessment/Plan Assessment/Plan Assessment and recs # Thrombocytopenia - potential causes multifactorial, evaluate liver and viral etiologies to begin, also could be related to underlying medications patient has received. covid19++ also s/p ventral hernia repair --> Hep panel and HIV ordered --> US abd to evaluate for cirrhosis and hsm ordered --> Peripheral smear ordered to evaluate for blasts /schistocytes --> abx and other meds have been reviewed --> ok for ppx if plt >50k w/ either heparin or lovenox --> Transfuse if Plt < 20k and fever, or if Plt < 10k without fever --> plt 143-->115-->98->125 --> abx ctx # Anemia of iron deficiency, unspecified rule out gi bleed --> obtain a anemia panel, has been ordered --> will/have begun on iv iron and continue x 5 doses --> review if occult blood is + (review this to make sure +). Can consider gi eval --> hgb goal is >7, transfuse as needed --> trend CBC daily to make sure no major acute drop --> no evidence of hemolysis noted --> hgb 8-->8.5 # Coagulopathy likely due to covid19++ in adition to vit k depletion --> have jamilah Vargas, will give ffp and vitk --> recheck inr / ptt after surgery--> surgery completed # Acute febrile illness due to covid19+++ --> due to Suspected 2019-nCoV infection -> on abx --> steriods ahve been given # Atypical pneumonia # Hernia, ventral --> sp surgical repair and revision 12/24 # Hypernatremia # Hypoglycemia # E..coli sepsis # COVID 19 pneumonia # Hypertension # renal failure # Bipolar disorder # Asthma # Dvt ppx heparin sq The timing of this note does not necessarily reflect the time of the patient was seen. Greatly appreciate consultation. Subjective Constitutional: Denies: no symptoms, chills, fever, malaise, weakness, other HEENT: Denies: no symptoms, eye pain, blurred vision, tearing, double vision, ear pain, ear discharge, nose pain, nose congestion, throat pain, throat swelling, mouth pain, mouth swelling, other Cardiovascular: Denies: no symptoms, chest pain, edema, irregular heart rate, lightheadedness, palpitations, syncope, other Respiratory: Denies: no symptoms, cough, shortness of breath, SOB with excertion, SOB at rest, sputum, wheezing, other Gastrointestinal/Abdominal: Denies: no symptoms, abdomen distended, abdominal pain, black stools, tarry stools, blood in stool, constipated, diarrhea, difficulty swallowing, nausea, poor appetite, poor fluid intake, rectal bleeding , vomiting, other Genitourinary: Denies: no symptoms, burning, discharge, frequency, flank pain, hematuria, incontinence, pain, urgency, other Neurologic/Psychiatric: Denies: no symptoms, anxiety, depressed, emotional problems, headache, numbness, paresthesia, pre-existing deficit, seizure, tingling, tremors, weakness, other Endocrine: Denies: no symptoms, excessive sweating, flushing, intolerance to cold, intolerance to heat, increased hunger, increased thirst, increased urine, unexplained weight gain, unexplained weight loss, other Allergies: Coded Allergies: IBUPROFEN (Verified Allergy, Unknown, 12/20/19) Subjective 12/24 abdominal mild pain with ttp, to see by surg for discussion re surgery today 12/25 intubated, no bleeding, meds reviewed, labs noted, dw ID 12/26 extubate,d no bleeding, meds noted, surgical site c/d/i, feeling better Objective Objective Current Medications Medications (Trade) Dose Ordered Sig/Venita Route PRN Reason Start Time Stop Time Status Last Admin Dose Admin Benztropine Mesylate (Cogentin) 2 mg BID ORAL 12/25/19 18:00 01/20/20 08:59 12/27/19 08:27 Cefepime HCl 1 gm/ Dextrose 55 ml @ 110 mls/hr Q24H IVPB 12/26/19 21:00 01/02/20 20:59 12/26/19 20:18 Dexamethasone Sodium Phosphate (Decadron 10mg/ ml Inj) 6 mg DAILY IV 12/26/19 09:00 01/01/20 08:59 12/27/19 08:28 Dextrose 1,000 ml @ 125 mls/hr Q8H IV 12/25/19 16:45 01/22/20 08:14 12/27/19 08:27 Divalproex Sodium (Depakote ER) 500 mg DAILY ORAL 12/26/19 09:00 01/20/20 08:59 12/27/19 08:27 Docusate Sodium (Colace) 100 mg THREE TIMES A DAY ORAL 12/25/19 18:00 01/20/20 08:59 12/27/19 08:27 Haloperidol (Haldol) 5 mg TID ORAL 12/25/19 18:00 02/04/20 13:59 12/27/19 08:27 Heparin Sodium (Porcine) (Heparin 5000 units/ml) 5,000 units EVERY 12 HOURS SUBQ 12/26/19 09:00 02/09/20 08:59 12/27/19 08:28 Hydralazine HCl (Apresoline) 10 mg Q4H PRN IV Blood pressure over 160 systol 12/25/19 16:38 03/24/20 16:37 Lorazepam (Ativan 2mg/ml 1ml) 1 mg Q4H PRN IV For Anxiety 12/25/19 16:38 01/01/20 16:37 Lorazepam (Ativan) 1 mg Q6H PRN ORAL Agitation 12/25/19 16:38 01/01/20 16:37 Pantoprazole (Protonix) 40 mg EVERY 12 HOURS IVP 12/25/19 21:00 01/24/20 20:59 12/27/19 08:28 Ziprasidone (Geodon) 40 mg Q12HR ORAL 12/25/19 21:00 02/04/20 20:59 12/27/19 08:27 Last 24 Hour Vital Signs Date Time Temp Pulse Resp B/P (MAP) Pulse Ox O2 Delivery O2 Flow Rate FiO2 12/27/19 10:00 75 23 111/73 (86) 100 12/27/19 09:00 102 20 120/78 (92) 100 12/27/19 08:30 97 17 104/72 (83) 100 12/27/19 08:00 Nasal Cannula 2.0 Nasal Cannula 2.0 12/27/19 08:00 97.5 104 15 105/74 (84) 100 12/27/19 07:33 104 12/27/19 07:15 97 21 108/71 (83) 100 12/27/19 07:00 101 20 108/75 (86) 100 12/27/19 06:45 100 18 101/70 (80) 100 12/27/19 06:30 79 20 95/68 (77) 100 12/27/19 06:15 96 21 93/61 (72) 12/27/19 06:00 94 17 95/74 (81) 12/27/19 05:45 92 22 104/74 (84) 100 12/27/19 05:30 90 16 115/86 (96) 100 12/27/19 05:15 96 18 105/70 (82) 100 12/27/19 05:00 94 17 105/68 (80) 100 12/27/19 04:45 97 16 105/69 (81) 100 12/27/19 04:30 91 20 98/74 (82) 100 12/27/19 04:15 92 17 99/71 (80) 100 12/27/19 04:00 98.0 95 15 104/74 (84) 100 12/27/19 04:00 Nasal Cannula 2.0 Nasal Cannula 2.0 12/27/19 03:45 89 21 121/71 (88) 100 12/27/19 03:30 101 15 112/67 (82) 100 12/27/19 03:30 103 12/27/19 03:15 101 15 102/74 (83) 99 12/27/19 03:00 109 16 108/77 (87) 100 12/27/19 02:45 77 22 105/73 (84) 100 12/27/19 02:30 83 24 109/72 (84) 100 12/27/19 02:15 82 23 106/72 (83) 100 12/27/19 02:00 79 23 108/73 (85) 100 12/27/19 01:45 75 23 107/70 (82) 100 12/27/19 01:30 75 23 106/71 (83) 100 12/27/19 01:15 71 24 116/73 (87) 100 12/27/19 01:00 68 23 106/78 (87) 100 12/27/19 00:45 68 20 106/64 (78) 12/27/19 00:30 69 23 106/74 (85) 100 12/27/19 00:15 66 23 107/77 (87) 100 12/27/19 00:00 Nasal Cannula 2.0 Nasal Cannula 2.0 12/27/19 00:00 97.7 72 22 102/74 (83) 100 12/26/19 23:45 75 23 101/63 (76) 100 12/26/19 23:30 66 21 112/75 (87) 12/26/19 23:27 72 12/26/19 23:15 54 21 103/67 (79) 12/26/19 23:00 60 21 116/78 (91) 12/26/19 22:45 62 22 123/72 (89) 12/26/19 22:30 60 22 105/68 (80) 12/26/19 22:15 60 23 103/66 (78) 100 12/26/19 22:00 68 23 109/67 (81) 100 12/26/19 21:45 71 23 99/67 (78) 100 12/26/19 21:30 81 24 101/71 (81) 100 12/26/19 21:15 71 21 99/68 (78) 12/26/19 21:00 76 21 92/55 (67) 12/26/19 20:23 96 12/26/19 20:00 97.1 80 15 110/84 (93) 100 12/26/19 20:00 Nasal Cannula 2.0 Nasal Cannula 2.0 12/26/19 19:45 79 14 105/82 (90) 100 12/26/19 19:30 82 14 111/84 (93) 84 12/26/19 19:15 78 14 111/81 (91) 100 12/26/19 19:00 81 14 111/82 (92) 100 12/26/19 18:00 91 18 111/75 (87) 100 12/26/19 17:00 82 22 120/100 (107) 100 12/26/19 16:00 96.1 91 15 109/67 (81) 100 12/26/19 16:00 Nasal Cannula 2.0 12/26/19 16:00 90 12/26/19 16:00 2.0 12/26/19 16:00 91 15 109/67 (81) 100 12/26/19 15:00 116 24 98/55 (69) 100 12/26/19 14:00 85 15 109/72 (84) 100 12/26/19 13:00 2.0 12/26/19 13:00 Simple Mask 2.0 28 12/26/19 13:00 98 14 118/82 (94) 100 12/26/19 12:15 68 18 98 12/26/19 12:00 112 12/26/19 12:00 Mechanical Ventilator 12/26/19 12:00 97.2 107 19 124/87 (99) 100 12/26/19 12:00 107 19 124/87 (99) 100 12/26/19 12:00 40 12/26/19 11:14 98 16 40 40 12/26/19 11:00 94 19 118/77 (91) 100 12/26/19 10:45 100 12/26/19 10:00 98 19 106/71 (83) 100 12/26/19 09:00 109 18 96/63 (74) 100 12/26/19 08:00 Mechanical Ventilator 12/26/19 08:00 40 12/26/19 08:00 98 12/26/19 08:00 113 20 112/73 (86) 100 12/26/19 07:00 108 19 105/69 (81) 100 12/26/19 06:00 114 20 109/68 (82) 100 12/26/19 05:00 82 14 108/61 (77) 100 12/26/19 04:00 99.0 110 14 98/62 (74) 100 12/26/19 04:00 Mechanical Ventilator 12/26/19 03:20 115 17 40 12/26/19 03:16 117 12/26/19 03:00 117 13 113/73 (86) 100 12/26/19 02:00 102 18 99/68 (78) 100 12/26/19 01:00 108 17 98/65 (76) 100 12/26/19 00:30 106 17 112/78 (89) 100 12/26/19 00:00 Mechanical Ventilator 12/26/19 00:00 99.4 110 16 102/63 (76) 100 12/25/19 23:54 112 17 40 12/25/19 23:04 92 12/25/19 23:00 102 14 93/56 (68) 100 12/25/19 22:15 124 18 100/65 (77) 100 12/25/19 22:00 110 14 93/58 (70) 100 12/25/19 21:30 106 14 91/58 (69) 100 12/25/19 21:15 103 14 88/53 (65) 100 12/25/19 21:00 107 14 89/52 (64) 100 12/25/19 20:45 116 14 91/53 (66) 100 12/25/19 20:30 131 17 107/67 (80) 100 12/25/19 20:15 123 18 105/66 (79) 100 12/25/19 20:00 100.4 115 19 108/60 (76) 100 12/25/19 20:00 Mechanical Ventilator 12/25/19 19:51 97 12/25/19 19:45 85 14 89/56 (67) 100 12/25/19 19:21 84 14 89/55 (66) 100 12/25/19 19:20 130 15 40 12/25/19 19:00 84 14 89/55 (66) 100 12/25/19 18:21 58 14 118/67 (84) 100 12/25/19 18:21 58 13 118/67 (84) 100 12/25/19 18:15 57 14 123/72 (89) 100 12/25/19 18:00 56 14 132/84 (100) 100 12/25/19 17:30 97 11 138/91 (107) 100 12/25/19 17:00 59 14 140/80 (100) 100 12/25/19 16:45 93.7 61 14 142/87 (105) 100 12/25/19 16:30 63 13 125/85 (98) 100 12/25/19 16:27 84 17 135/86 (102) 100 12/25/19 16:00 67 12/25/19 16:00 93.0 63 17 141/87 (105) 100 12/25/19 16:00 Mechanical Ventilator 12/25/19 15:45 56 12 100 12/25/19 15:36 67 14 100 12/25/19 15:33 67 14 100 Mechanical Ventilator 100 12/25/19 12:00 96.9 93 18 116/78 (91) 93 12/25/19 12:00 Nasal Cannula 2.0 Intake and Output 12/26/19 12/27/19 19:00 07:00 Intake Total 1630 ml 1485 ml Output Total 1190 ml 1125 ml Balance 440 ml 360 ml Intake Oral 240 ml IV Total 1390 ml 1485 ml Output Urine Total 1190 ml 1125 ml # Bowel Movements 1 2 Labs Test 12/24/19 12:00 12/25/19 04:46 12/25/19 12:19 12/26/19 04:10 Sodium Level 168 MMOL/L (136-145) 167 MMOL/L (136-145) 166 MMOL/L (136-145) Potassium Level 3.9 MMOL/L (3.5-5.1) 4.1 MMOL/L (3.5-5.1) 3.7 MMOL/L (3.5-5.1) Chloride Level 130 MMOL/L (98-107) 131 MMOL/L (98-107) 129 MMOL/L (98-107) Carbon Dioxide Level 30 MMOL/L (21-32) 28 MMOL/L (21-32) 29 MMOL/L (21-32) Anion Gap 8 mmol/L (5-15) 9 mmol/L (5-15) 8 mmol/L (5-15) Blood Urea Nitrogen 13 mg/dL (7-18) 10 mg/dL (7-18) 10 mg/dL (7-18) Creatinine 1.4 MG/DL (0.55-1.30) 1.3 MG/DL (0.55-1.30) 1.7 MG/DL (0.55-1.30) Estimat Glomerular Filtration Rate 47.6 mL/min (>60) 51.9 mL/min (>60) 38.2 mL/min (>60) Glucose Level 172 MG/DL (74-106) 64 MG/DL (74-106) 89 MG/DL (74-106) Calcium Level 7.1 MG/DL (8.5-10.1) 7.3 MG/DL (8.5-10.1) 7.0 MG/DL (8.5-10.1) Phosphorus Level 2.9 MG/DL (2.5-4.9) Magnesium Level 1.9 MG/DL (1.8-2.4) Total Bilirubin 0.3 MG/DL (0.2-1.0) 0.2 MG/DL (0.2-1.0) 0.3 MG/DL (0.2-1.0) Aspartate Amino Transf (AST/SGOT) 29 U/L (15-37) 29 U/L (15-37) 28 U/L (15-37) Alanine Aminotransferase (ALT/SGPT) 17 U/L (12-78) 14 U/L (12-78) 15 U/L (12-78) Alkaline Phosphatase 112 U/L (46-116) 101 U/L (46-116) 92 U/L (46-116) Total Protein 5.5 G/DL (6.4-8.2) 5.3 G/DL (6.4-8.2) 5.0 G/DL (6.4-8.2) Albumin 1.1 G/DL (3.4-5.0) 1.0 G/DL (3.4-5.0) 1.1 G/DL (3.4-5.0) Globulin 4.4 g/dL 4.3 g/dL 3.9 g/dL Albumin/Globulin Ratio 0.2 (1.0-2.7) 0.2 (1.0-2.7) 0.3 (1.0-2.7) Hepatitis A IgM Antibody Negative (Negative) Hepatitis B Surface Antigen Negative (Negative) Hepatitis B Core IgM Antibody Negative (Negative) Hepatitis C Antibody 0.1 s/co ratio (0.0-0.9) HIV (1&2) Antibody Rapid Negative (NEGATIVE) White Blood Count 9.0 K/UL (4.8-10.8) 10.0 K/UL (4.8-10.8) Red Blood Count 2.45 M/UL (4.20-5.40) 2.69 M/UL (4.20-5.40) Hemoglobin 8.0 G/DL (12.0-16.0) 8.5 G/DL (12.0-16.0) Hematocrit 27.2 % (37.0-47.0) 27.8 % (37.0-47.0) Mean Corpuscular Volume 111 FL (80-99) 103 FL (80-99) Mean Corpuscular Hemoglobin 32.9 PG (27.0-31.0) 31.5 PG (27.0-31.0) Mean Corpuscular Hemoglobin Concent 29.6 G/DL (32.0-36.0) 30.5 G/DL (32.0-36.0) Red Cell Distribution Width 14.8 % (11.6-14.8) 17.6 % (11.6-14.8) Platelet Count 98 K/UL (150-450) 125 K/UL (150-450) Mean Platelet Volume 6.7 FL (6.5-10.1) 6.9 FL (6.5-10.1) Neutrophils (%) (Auto) % (45.0-75.0) 72.9 % (45.0-75.0) Lymphocytes (%) (Auto) % (20.0-45.0) 19.9 % (20.0-45.0) Monocytes (%) (Auto) % (1.0-10.0) 6.6 % (1.0-10.0) Eosinophils (%) (Auto) % (0.0-3.0) 0.1 % (0.0-3.0) Basophils (%) (Auto) % (0.0-2.0) 0.5 % (0.0-2.0) Differential Total Cells Counted 100 Neutrophils % (Manual) 83 % (45-75) Lymphocytes % (Manual) 14 % (20-45) Monocytes % (Manual) 3 % (1-10) Eosinophils % (Manual) 0 % (0-3) Basophils % (Manual) 0 % (0-2) Band Neutrophils 0 % (0-8) Platelet Estimate Decreased Platelet Morphology Normal Hypochromasia 1+ Anisocytosis 1+ Macrocytosis 1+ Erythrocyte Sedimentation Rate 60 MM/HR (0-30) Prothrombin Time 15.6 SEC (9.30-11.50) 13.6 SEC (9.30-11.50) Prothromb Time International Ratio 1.5 (0.9-1.1) 1.3 (0.9-1.1) Activated Partial Thromboplast Time 34 SEC (23-33) 30 SEC (23-33) C-Reactive Protein, Quantitative 12.9 mg/dL (0.00-0.90) Amylase Level 13 U/L (25-115) Lipase 49 U/L (73-393) Test 12/27/19 04:05 12/27/19 09:24 White Blood Count 7.4 K/UL (4.8-10.8) Red Blood Count 2.57 M/UL (4.20-5.40) Hemoglobin 8.1 G/DL (12.0-16.0) Hematocrit 26.8 % (37.0-47.0) Mean Corpuscular Volume 104 FL (80-99) Mean Corpuscular Hemoglobin 31.5 PG (27.0-31.0) Mean Corpuscular Hemoglobin Concent 30.3 G/DL (32.0-36.0) Red Cell Distribution Width 16.7 % (11.6-14.8) Platelet Count 125 K/UL (150-450) Mean Platelet Volume 6.6 FL (6.5-10.1) Neutrophils (%) (Auto) 73.3 % (45.0-75.0) Lymphocytes (%) (Auto) 20.5 % (20.0-45.0) Monocytes (%) (Auto) 5.4 % (1.0-10.0) Eosinophils (%) (Auto) 0.2 % (0.0-3.0) Basophils (%) (Auto) 0.6 % (0.0-2.0) Sodium Level 169 MMOL/L (136-145) Potassium Level 3.3 MMOL/L (3.5-5.1) Chloride Level 132 MMOL/L (98-107) Carbon Dioxide Level 31 MMOL/L (21-32) Anion Gap 5 mmol/L (5-15) Blood Urea Nitrogen 10 mg/dL (7-18) Creatinine 1.5 MG/DL (0.55-1.30) Estimat Glomerular Filtration Rate 44.1 mL/min (>60) Glucose Level 78 MG/DL (74-106) Calcium Level 7.0 MG/DL (8.5-10.1) Phosphorus Level 3.4 MG/DL (2.5-4.9) Magnesium Level 1.8 MG/DL (1.8-2.4) Total Bilirubin 0.3 MG/DL (0.2-1.0) Direct Bilirubin 0.1 MG/DL (0.0-0.3) Aspartate Amino Transf (AST/SGOT) 26 U/L (15-37) Alanine Aminotransferase (ALT/SGPT) 10 U/L (12-78) Alkaline Phosphatase 88 U/L (46-116) Total Protein 4.9 G/DL (6.4-8.2) Albumin 1.0 G/DL (3.4-5.0) Urine Random Sodium 25 mmol/L (20-110) Height (Feet): 5 Height (Inches): 4.00 Weight (Pounds): 155 Objective Physical Exam: Vitals: reviewed General: NAD HEENT: nc, at Neck: supple Chest: clear breath sounds bilaterally+ nc Cardiovascular: RRR, no s3, s4 Abdomen: soft, nontender, ttp in upper quands, abd surgical scar c/d/i Extremities: no cce, normal range of motion Neuro: alert and oriented Charanjit Sandoval MD Dec 27, 2019 11:40
--- NOTE | 2019-12-27 11:47 | Cardiac Electrophysiology PN ---
Assessment/Plan Assessment/Plan 1. Hypotension. Likely due to dehydration as Sodium was 169 on arrival and sepsis. Resolved. Echocardiogram EF 65% 2. History of hypertension, on p.r.n. IV hydralazine. 3. Severe hypernatremia. Patient is on IV fluid per Dr. Pichardo. 4. COVID-19 PNA in isolation. 5. K 6.0. Erroneous. Repeat 3.4 6. Incarcerated incisional ventral hernia and Bowel obstruction.S/P surgery by Dr Vargas. 7. Respiratory failure, extubated 12/26/19 INGRID RN Subjective Subjective Covid positive in ICU. Extubated yesterday. S/P incarcerated ventral hernia surgery 12/25/19 Objective Last 24 Hour Vital Signs Date Time Temp Pulse Resp B/P (MAP) Pulse Ox O2 Delivery O2 Flow Rate FiO2 12/27/19 10:00 75 23 111/73 (86) 100 12/27/19 09:00 102 20 120/78 (92) 100 12/27/19 08:30 97 17 104/72 (83) 100 12/27/19 08:00 Nasal Cannula 2.0 Nasal Cannula 2.0 12/27/19 08:00 97.5 104 15 105/74 (84) 100 12/27/19 07:33 104 12/27/19 07:15 97 21 108/71 (83) 100 12/27/19 07:00 101 20 108/75 (86) 100 12/27/19 06:45 100 18 101/70 (80) 100 12/27/19 06:30 79 20 95/68 (77) 100 12/27/19 06:15 96 21 93/61 (72) 12/27/19 06:00 94 17 95/74 (81) 12/27/19 05:45 92 22 104/74 (84) 100 12/27/19 05:30 90 16 115/86 (96) 100 12/27/19 05:15 96 18 105/70 (82) 100 12/27/19 05:00 94 17 105/68 (80) 100 12/27/19 04:45 97 16 105/69 (81) 100 12/27/19 04:30 91 20 98/74 (82) 100 12/27/19 04:15 92 17 99/71 (80) 100 12/27/19 04:00 98.0 95 15 104/74 (84) 100 12/27/19 04:00 Nasal Cannula 2.0 Nasal Cannula 2.0 12/27/19 03:45 89 21 121/71 (88) 100 12/27/19 03:30 101 15 112/67 (82) 100 12/27/19 03:30 103 12/27/19 03:15 101 15 102/74 (83) 99 12/27/19 03:00 109 16 108/77 (87) 100 12/27/19 02:45 77 22 105/73 (84) 100 12/27/19 02:30 83 24 109/72 (84) 100 12/27/19 02:15 82 23 106/72 (83) 100 12/27/19 02:00 79 23 108/73 (85) 100 12/27/19 01:45 75 23 107/70 (82) 100 12/27/19 01:30 75 23 106/71 (83) 100 12/27/19 01:15 71 24 116/73 (87) 100 12/27/19 01:00 68 23 106/78 (87) 100 12/27/19 00:45 68 20 106/64 (78) 12/27/19 00:30 69 23 106/74 (85) 100 12/27/19 00:15 66 23 107/77 (87) 100 12/27/19 00:00 Nasal Cannula 2.0 Nasal Cannula 2.0 12/27/19 00:00 97.7 72 22 102/74 (83) 100 12/26/19 23:45 75 23 101/63 (76) 100 12/26/19 23:30 66 21 112/75 (87) 12/26/19 23:27 72 12/26/19 23:15 54 21 103/67 (79) 12/26/19 23:00 60 21 116/78 (91) 12/26/19 22:45 62 22 123/72 (89) 12/26/19 22:30 60 22 105/68 (80) 12/26/19 22:15 60 23 103/66 (78) 100 12/26/19 22:00 68 23 109/67 (81) 100 12/26/19 21:45 71 23 99/67 (78) 100 12/26/19 21:30 81 24 101/71 (81) 100 12/26/19 21:15 71 21 99/68 (78) 12/26/19 21:00 76 21 92/55 (67) 12/26/19 20:23 96 12/26/19 20:00 97.1 80 15 110/84 (93) 100 12/26/19 20:00 Nasal Cannula 2.0 Nasal Cannula 2.0 12/26/19 19:45 79 14 105/82 (90) 100 12/26/19 19:30 82 14 111/84 (93) 84 12/26/19 19:15 78 14 111/81 (91) 100 12/26/19 19:00 81 14 111/82 (92) 100 12/26/19 18:00 91 18 111/75 (87) 100 12/26/19 17:00 82 22 120/100 (107) 100 12/26/19 16:00 96.1 91 15 109/67 (81) 100 12/26/19 16:00 Nasal Cannula 2.0 12/26/19 16:00 90 12/26/19 16:00 2.0 12/26/19 16:00 91 15 109/67 (81) 100 12/26/19 15:00 116 24 98/55 (69) 100 12/26/19 14:00 85 15 109/72 (84) 100 12/26/19 13:00 2.0 12/26/19 13:00 Simple Mask 2.0 28 12/26/19 13:00 98 14 118/82 (94) 100 12/26/19 12:15 68 18 98 12/26/19 12:00 112 12/26/19 12:00 Mechanical Ventilator 12/26/19 12:00 97.2 107 19 124/87 (99) 100 12/26/19 12:00 107 19 124/87 (99) 100 12/26/19 12:00 40 Intake and Output 12/26/19 12/27/19 19:00 07:00 Intake Total 1630 ml 1485 ml Output Total 1190 ml 1125 ml Balance 440 ml 360 ml Intake Oral 240 ml IV Total 1390 ml 1485 ml Output Urine Total 1190 ml 1125 ml # Bowel Movements 1 2 Laboratory Tests Test 12/27/19 04:05 12/27/19 09:24 White Blood Count 7.4 K/UL (4.8-10.8) Red Blood Count 2.57 M/UL (4.20-5.40) L Hemoglobin 8.1 G/DL (12.0-16.0) L Hematocrit 26.8 % (37.0-47.0) L Mean Corpuscular Volume 104 FL (80-99) H Mean Corpuscular Hemoglobin 31.5 PG (27.0-31.0) H Mean Corpuscular Hemoglobin Concent 30.3 G/DL (32.0-36.0) L Red Cell Distribution Width 16.7 % (11.6-14.8) H Platelet Count 125 K/UL (150-450) L Mean Platelet Volume 6.6 FL (6.5-10.1) Neutrophils (%) (Auto) 73.3 % (45.0-75.0) Lymphocytes (%) (Auto) 20.5 % (20.0-45.0) Monocytes (%) (Auto) 5.4 % (1.0-10.0) Eosinophils (%) (Auto) 0.2 % (0.0-3.0) Basophils (%) (Auto) 0.6 % (0.0-2.0) Sodium Level 169 MMOL/L (136-145) *H Potassium Level 3.3 MMOL/L (3.5-5.1) L Chloride Level 132 MMOL/L (98-107) H Carbon Dioxide Level 31 MMOL/L (21-32) Anion Gap 5 mmol/L (5-15) Blood Urea Nitrogen 10 mg/dL (7-18) Creatinine 1.5 MG/DL (0.55-1.30) H Estimat Glomerular Filtration Rate 44.1 mL/min (>60) Glucose Level 78 MG/DL (74-106) Calcium Level 7.0 MG/DL (8.5-10.1) L Phosphorus Level 3.4 MG/DL (2.5-4.9) Magnesium Level 1.8 MG/DL (1.8-2.4) Total Bilirubin 0.3 MG/DL (0.2-1.0) Direct Bilirubin 0.1 MG/DL (0.0-0.3) Aspartate Amino Transf (AST/SGOT) 26 U/L (15-37) Alanine Aminotransferase (ALT/SGPT) 10 U/L (12-78) L Alkaline Phosphatase 88 U/L (46-116) Total Protein 4.9 G/DL (6.4-8.2) L Albumin 1.0 G/DL (3.4-5.0) L Urine Random Sodium 25 mmol/L (20-110) Objective HEAD AND NECK: No JVD. LUNGS: Coarse rhonchi. CARDIOVASCULAR: regular S1, S2. ABDOMEN: Soft. S/P hernia surgery EXTREMITIES: No pitting edema. Steffen Mera MD Dec 27, 2019 11:47
--- NOTE | 2019-12-27 12:07 | Pulmonology Progress Note ---
Subjective ROS Limited/Unobtainable: Yes Interval Events: Extubated Constitutional: Reports: no symptoms, other - Kg=832.4 HEENT: Repors: no symptoms Respiratory: Reports: no symptoms Cardiovascular: Reports: no symptoms Gastrointestinal/Abdominal: Denies: nausea, vomiting, diarrhea Genitourinary: Reports: no symptoms Musculoskeletal: Denies: pain Allergies: Coded Allergies: IBUPROFEN (Verified Allergy, Unknown, 12/20/19) All Systems: reviewed and negative except above Objective Last 24 Hour Vital Signs Date Time Temp Pulse Resp B/P (MAP) Pulse Ox O2 Delivery O2 Flow Rate FiO2 12/27/19 11:00 64 22 107/75 (86) 12/27/19 10:00 75 23 111/73 (86) 100 12/27/19 09:00 102 20 120/78 (92) 100 12/27/19 08:30 97 17 104/72 (83) 100 12/27/19 08:00 Nasal Cannula 2.0 Nasal Cannula 2.0 12/27/19 08:00 97.5 104 15 105/74 (84) 100 12/27/19 07:33 104 12/27/19 07:15 97 21 108/71 (83) 100 12/27/19 07:00 101 20 108/75 (86) 100 12/27/19 06:45 100 18 101/70 (80) 100 12/27/19 06:30 79 20 95/68 (77) 100 12/27/19 06:15 96 21 93/61 (72) 12/27/19 06:00 94 17 95/74 (81) 12/27/19 05:45 92 22 104/74 (84) 100 12/27/19 05:30 90 16 115/86 (96) 100 12/27/19 05:15 96 18 105/70 (82) 100 12/27/19 05:00 94 17 105/68 (80) 100 12/27/19 04:45 97 16 105/69 (81) 100 12/27/19 04:30 91 20 98/74 (82) 100 12/27/19 04:15 92 17 99/71 (80) 100 12/27/19 04:00 98.0 95 15 104/74 (84) 100 12/27/19 04:00 Nasal Cannula 2.0 Nasal Cannula 2.0 12/27/19 03:45 89 21 121/71 (88) 100 12/27/19 03:30 101 15 112/67 (82) 100 12/27/19 03:30 103 12/27/19 03:15 101 15 102/74 (83) 99 12/27/19 03:00 109 16 108/77 (87) 100 12/27/19 02:45 77 22 105/73 (84) 100 12/27/19 02:30 83 24 109/72 (84) 100 12/27/19 02:15 82 23 106/72 (83) 100 12/27/19 02:00 79 23 108/73 (85) 100 12/27/19 01:45 75 23 107/70 (82) 100 12/27/19 01:30 75 23 106/71 (83) 100 12/27/19 01:15 71 24 116/73 (87) 100 12/27/19 01:00 68 23 106/78 (87) 100 12/27/19 00:45 68 20 106/64 (78) 12/27/19 00:30 69 23 106/74 (85) 100 12/27/19 00:15 66 23 107/77 (87) 100 12/27/19 00:00 Nasal Cannula 2.0 Nasal Cannula 2.0 12/27/19 00:00 97.7 72 22 102/74 (83) 100 12/26/19 23:45 75 23 101/63 (76) 100 12/26/19 23:30 66 21 112/75 (87) 12/26/19 23:27 72 12/26/19 23:15 54 21 103/67 (79) 12/26/19 23:00 60 21 116/78 (91) 12/26/19 22:45 62 22 123/72 (89) 12/26/19 22:30 60 22 105/68 (80) 12/26/19 22:15 60 23 103/66 (78) 100 12/26/19 22:00 68 23 109/67 (81) 100 12/26/19 21:45 71 23 99/67 (78) 100 12/26/19 21:30 81 24 101/71 (81) 100 12/26/19 21:15 71 21 99/68 (78) 12/26/19 21:00 76 21 92/55 (67) 12/26/19 20:23 96 12/26/19 20:00 97.1 80 15 110/84 (93) 100 12/26/19 20:00 Nasal Cannula 2.0 Nasal Cannula 2.0 12/26/19 19:45 79 14 105/82 (90) 100 12/26/19 19:30 82 14 111/84 (93) 84 12/26/19 19:15 78 14 111/81 (91) 100 12/26/19 19:00 81 14 111/82 (92) 100 12/26/19 18:00 91 18 111/75 (87) 100 12/26/19 17:00 82 22 120/100 (107) 100 12/26/19 16:00 96.1 91 15 109/67 (81) 100 12/26/19 16:00 Nasal Cannula 2.0 12/26/19 16:00 90 12/26/19 16:00 2.0 12/26/19 16:00 91 15 109/67 (81) 100 12/26/19 15:00 116 24 98/55 (69) 100 12/26/19 14:00 85 15 109/72 (84) 100 12/26/19 13:00 2.0 12/26/19 13:00 Simple Mask 2.0 28 12/26/19 13:00 98 14 118/82 (94) 100 12/26/19 12:15 68 18 98 Intake and Output 12/26/19 12/27/19 19:00 07:00 Intake Total 1630 ml 1485 ml Output Total 1190 ml 1125 ml Balance 440 ml 360 ml Intake Oral 240 ml IV Total 1390 ml 1485 ml Output Urine Total 1190 ml 1125 ml # Bowel Movements 1 2 General Appearance: no acute distress HEENT: normocephalic Respiratory: chest wall non-tender Cardiovascular: normal peripheral pulses, normal rate Abdomen: normal bowel sounds Extremities: no cyanosis Laboratory Tests 12/27/19 04:05: White Blood Count 7.4, Red Blood Count 2.57L, Hemoglobin 8.1L, Hematocrit 26.8L , Mean Corpuscular Volume 104H, Mean Corpuscular Hemoglobin 31.5H, Mean Corpuscular Hemoglobin Concent 30.3L, Red Cell Distribution Width 16.7H, Platelet Count 125L, Mean Platelet Volume 6.6, Neutrophils (%) (Auto) 73.3, Lymphocytes (%) (Auto) 20.5, Monocytes (%) (Auto) 5.4, Eosinophils (%) (Auto) 0.2, Basophils (%) (Auto) 0.6, Sodium Level 169*H, Potassium Level 3.3L, Chloride Level 132H, Carbon Dioxide Level 31, Anion Gap 5, Blood Urea Nitrogen 10, Creatinine 1.5H, Estimat Glomerular Filtration Rate 44.1, Glucose Level 78, Calcium Level 7.0L, Phosphorus Level 3.4, Magnesium Level 1.8, Total Bilirubin 0.3, Direct Bilirubin 0.1, Aspartate Amino Transf (AST/SGOT) 26, Alanine Aminotransferase (ALT/SGPT) 10L, Alkaline Phosphatase 88, Total Protein 4.9L, Albumin 1.0L 12/27/19 09:24: Urine Random Sodium 25 Current Medications Medications (Trade) Dose Ordered Sig/Venita Route PRN Reason Start Time Stop Time Status Last Admin Dose Admin Benztropine Mesylate (Cogentin) 2 mg BID ORAL 12/25/19 18:00 01/20/20 08:59 12/27/19 08:27 Cefepime HCl 1 gm/ Dextrose 55 ml @ 110 mls/hr Q24H IVPB 12/26/19 21:00 01/02/20 20:59 12/26/19 20:18 Dexamethasone Sodium Phosphate (Decadron 10mg/ ml Inj) 6 mg DAILY IV 12/26/19 09:00 01/01/20 08:59 12/27/19 08:28 Dextrose 1,000 ml @ 125 mls/hr Q8H IV 12/25/19 16:45 01/22/20 08:14 12/27/19 08:27 Divalproex Sodium (Depakote ER) 500 mg DAILY ORAL 12/26/19 09:00 01/20/20 08:59 12/27/19 08:27 Docusate Sodium (Colace) 100 mg THREE TIMES A DAY ORAL 12/25/19 18:00 01/20/20 08:59 12/27/19 08:27 Haloperidol (Haldol) 5 mg TID ORAL 12/25/19 18:00 02/04/20 13:59 12/27/19 08:27 Heparin Sodium (Porcine) (Heparin 5000 units/ml) 5,000 units EVERY 12 HOURS SUBQ 12/26/19 09:00 02/09/20 08:59 12/27/19 08:28 Hydralazine HCl (Apresoline) 10 mg Q4H PRN IV Blood pressure over 160 systol 12/25/19 16:38 03/24/20 16:37 Lorazepam (Ativan 2mg/ml 1ml) 1 mg Q4H PRN IV For Anxiety 12/25/19 16:38 01/01/20 16:37 Lorazepam (Ativan) 1 mg Q6H PRN ORAL Agitation 12/25/19 16:38 01/01/20 16:37 Pantoprazole (Protonix) 40 mg EVERY 12 HOURS IVP 12/25/19 21:00 01/24/20 20:59 12/27/19 08:28 Ziprasidone (Geodon) 40 mg Q12HR ORAL 12/25/19 21:00 02/04/20 20:59 12/27/19 08:27 Assessment/Plan Assessment/Plan IMPRESSION: 1. Confirmed COVID-19 pneumonia. 2. Hypernatremia. Improved 3. Psych disorder. 4. half-way resident. 5. E Coli bacteremia 6. Incarcerated hernia s/p repair DISCUSSION: Agree with current medications and care. Continue steroids. Continue medications. 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 Abx per ID S/p extuabtion Roberta Manzo Omar Syed MD Dec 27, 2019 12:07
--- NOTE | 2019-12-27 12:30 | NUR ---
NURSE NOTES: received patient report from carlos rn. patient is on bed awake. not in acute distress. on 2 Li NC.covid isolation. bed is low and locked for safet. will continue to care.
--- NOTE | 2019-12-27 12:30 | NUR ---
NURSE NOTES: per conversation with Marianne of pharmacy. Remdesivir is put on hold until Na is normalized. currently Na level is 169. will continue to monitor.
[2019-12-27] MEDS ORDERED: LORazepam Inj 2mg/ml 1ml IV PRN (12:45)
[2019-12-27] MEDS ORDERED: LORazepam 1mg tab ORAL PRN (13:00)
--- NOTE | 2019-12-27 13:00 | Progress Note ---
DATE: 12/27/2019 SUBJECTIVE: This is a 54-year-old female patient. She continues to have some depression and confusion. She continues to have some mood lability. She has hernia. She has COVID pneumonia, but she also has paranoid schizophrenia. So, she has been having a lot of mood lability and agitation, worsened by stress of her medical illness. That is why her attending has requested daily psychiatric consultation. MENTAL STATUS EXAMINATION: This is a 54-year-old female patient. Appearance is disheveled. Attitude, irritable and agitated. Affect, guarded and restricted. Intellect, poor. Mood, depressed and anxious. Motor activity, psychomotor agitation. Insight and judgment is poor. DIAGNOSIS: Schizoaffective, bipolar type. PLAN: Treat her with Depakote 500 mg daily, Haldol 5 mg three times a day for psychosis and agitation, augmented by Geodon 40 mg q.12 hours, and Ativan 1 mg every six hours p.r.n. anxiety or agitation. A 20 minutes of cognitive behavioral therapy will help her identify automatic negative thoughts and help her convert those negative thoughts to more positive thoughts. Chart reviewed. Discussed with staff. Seen and assessed at bedside. Flip Burgos M.D. DR: NIMCO JOB#: [id number] CC:
--- NOTE | 2019-12-27 13:25 | Nephrology Progress Note ---
Assessment/Plan Problem List: (1) Renal failure Assessment: Acute on chronic (2) Suspected 2019-nCoV infection Assessment: Acute febrile illness (3) Hypernatremia Assessment: Improving (4) Hypoglycemia Assessment: Improving Assessment Renal failure, most likely chronic, with superimposed acute renal failure. Acute febrile illness, suspected COVID-19 infection. Hypernatremia, likely due to free water deficit. Hypoglycemia Severe hypoalbuminemia Atypical pneumonia Anemia History of psych disease Plan December 26: Remains in ICU. Postop day 2. Is now extubated. Lab reviewed. Hypernatremia persists. Continue D5W. Discussed with RN. December 25: Patient in ICU. Had surgery yesterday December 24. Patient remains intubated, due for extubation. Lab reviewed. Discussed with RN. Continue D5W for hypernatremia. Patient overall stable from renal standpoint of view. December 24: Renal parameters reviewed. Creatinine within normal limit. Serum sodium remains high. Patient due for hernia surgery today. Continue D5W IV fluid. December 23: Renal parameters reviewed. Creatinine down to 1.4. Serum sodium higher. Patient is being investigated for incarcerated ventral hernia by general surgery. Continue current IV fluid and monitor renal parameters. December 22: Will recheck serum potassium. If nonhemolyzed value still elevated will treat hyperkalemia. Discussed with DOT Leary. Continue the rest of the medication. Stop blood pressure medication due to low blood pressure, adjust the dose when the blood pressure improves PRN IV hydralazine for blood pressure spike D5W IV hydration Protonix p.o. Albumin IV bolus Monitor renal parameters Continue per consultants Saha catheter, urine studies Subjective ROS Limited/Unobtainable: No Constitutional: Reports: malaise, weakness Objective Objective Last 24 Hour Vital Signs Date Time Temp Pulse Resp B/P (MAP) Pulse Ox O2 Delivery O2 Flow Rate FiO2 12/27/19 12:00 Nasal Cannula 2.0 Nasal Cannula 2.0 12/27/19 12:00 97.4 63 21 111/70 (84) 100 12/27/19 11:00 64 22 107/75 (86) 100 12/27/19 10:00 75 23 111/73 (86) 100 12/27/19 09:00 102 20 120/78 (92) 100 12/27/19 08:30 97 17 104/72 (83) 100 12/27/19 08:00 Nasal Cannula 2.0 Nasal Cannula 2.0 12/27/19 08:00 97.5 104 15 105/74 (84) 100 12/27/19 07:33 104 12/27/19 07:15 97 21 108/71 (83) 100 12/27/19 07:00 101 20 108/75 (86) 100 12/27/19 06:45 100 18 101/70 (80) 100 12/27/19 06:30 79 20 95/68 (77) 100 12/27/19 06:15 96 21 93/61 (72) 12/27/19 06:00 94 17 95/74 (81) 12/27/19 05:45 92 22 104/74 (84) 100 12/27/19 05:30 90 16 115/86 (96) 100 12/27/19 05:15 96 18 105/70 (82) 100 12/27/19 05:00 94 17 105/68 (80) 100 12/27/19 04:45 97 16 105/69 (81) 100 12/27/19 04:30 91 20 98/74 (82) 100 12/27/19 04:15 92 17 99/71 (80) 100 12/27/19 04:00 98.0 95 15 104/74 (84) 100 12/27/19 04:00 Nasal Cannula 2.0 Nasal Cannula 2.0 12/27/19 03:45 89 21 121/71 (88) 100 12/27/19 03:30 101 15 112/67 (82) 100 12/27/19 03:30 103 12/27/19 03:15 101 15 102/74 (83) 99 12/27/19 03:00 109 16 108/77 (87) 100 12/27/19 02:45 77 22 105/73 (84) 100 12/27/19 02:30 83 24 109/72 (84) 100 12/27/19 02:15 82 23 106/72 (83) 100 12/27/19 02:00 79 23 108/73 (85) 100 12/27/19 01:45 75 23 107/70 (82) 100 12/27/19 01:30 75 23 106/71 (83) 100 12/27/19 01:15 71 24 116/73 (87) 100 12/27/19 01:00 68 23 106/78 (87) 100 12/27/19 00:45 68 20 106/64 (78) 12/27/19 00:30 69 23 106/74 (85) 100 12/27/19 00:15 66 23 107/77 (87) 100 12/27/19 00:00 Nasal Cannula 2.0 Nasal Cannula 2.0 12/27/19 00:00 97.7 72 22 102/74 (83) 100 12/26/19 23:45 75 23 101/63 (76) 100 12/26/19 23:30 66 21 112/75 (87) 12/26/19 23:27 72 12/26/19 23:15 54 21 103/67 (79) 12/26/19 23:00 60 21 116/78 (91) 12/26/19 22:45 62 22 123/72 (89) 12/26/19 22:30 60 22 105/68 (80) 12/26/19 22:15 60 23 103/66 (78) 100 12/26/19 22:00 68 23 109/67 (81) 100 12/26/19 21:45 71 23 99/67 (78) 100 12/26/19 21:30 81 24 101/71 (81) 100 12/26/19 21:15 71 21 99/68 (78) 12/26/19 21:00 76 21 92/55 (67) 12/26/19 20:23 96 12/26/19 20:00 97.1 80 15 110/84 (93) 100 12/26/19 20:00 Nasal Cannula 2.0 Nasal Cannula 2.0 12/26/19 19:45 79 14 105/82 (90) 100 12/26/19 19:30 82 14 111/84 (93) 84 12/26/19 19:15 78 14 111/81 (91) 100 12/26/19 19:00 81 14 111/82 (92) 100 12/26/19 18:00 91 18 111/75 (87) 100 12/26/19 17:00 82 22 120/100 (107) 100 12/26/19 16:00 96.1 91 15 109/67 (81) 100 12/26/19 16:00 Nasal Cannula 2.0 12/26/19 16:00 90 12/26/19 16:00 2.0 12/26/19 16:00 91 15 109/67 (81) 100 12/26/19 15:00 116 24 98/55 (69) 100 12/26/19 14:00 85 15 109/72 (84) 100 Intake and Output 12/26/19 12/27/19 19:00 07:00 Intake Total 1630 ml 1485 ml Output Total 1190 ml 1125 ml Balance 440 ml 360 ml Intake Oral 240 ml IV Total 1390 ml 1485 ml Output Urine Total 1190 ml 1125 ml # Bowel Movements 1 2 Laboratory Tests 12/27/19 04:05: White Blood Count 7.4, Red Blood Count 2.57L, Hemoglobin 8.1L, Hematocrit 26.8L , Mean Corpuscular Volume 104H, Mean Corpuscular Hemoglobin 31.5H, Mean Corpuscular Hemoglobin Concent 30.3L, Red Cell Distribution Width 16.7H, Platelet Count 125L, Mean Platelet Volume 6.6, Neutrophils (%) (Auto) 73.3, Lymphocytes (%) (Auto) 20.5, Monocytes (%) (Auto) 5.4, Eosinophils (%) (Auto) 0.2, Basophils (%) (Auto) 0.6, Sodium Level 169*H, Potassium Level 3.3L, Chloride Level 132H, Carbon Dioxide Level 31, Anion Gap 5, Blood Urea Nitrogen 10, Creatinine 1.5H, Estimat Glomerular Filtration Rate 44.1, Glucose Level 78, Calcium Level 7.0L, Phosphorus Level 3.4, Magnesium Level 1.8, Total Bilirubin 0.3, Direct Bilirubin 0.1, Aspartate Amino Transf (AST/SGOT) 26, Alanine Aminotransferase (ALT/SGPT) 10L, Alkaline Phosphatase 88, Total Protein 4.9L, Albumin 1.0L 12/27/19 09:24: Urine Random Sodium 25 Height (Feet): 5 Height (Inches): 4.00 Weight (Pounds): 155 General Appearance: no apparent distress EENT: other - Now extubated Cardiovascular: normal rate Respiratory/Chest: decreased breath sounds Abdomen: soft Brian Pichardo MD Dec 27, 2019 13:25
--- NOTE | 2019-12-27 19:29 | NUR ---
HAND-OFF: Report given to mahesh collado.
--- NOTE | 2019-12-27 19:30 | NUR ---
NURSE NOTES: Got report from Keila CHRIS. Pt in stable condition. Initial assessment done. Pt is A+Ox2 Confused. Pt on 2L NC satting 100%. VSS. Pt is Covid + on 12/20/2019. Denies any pain. Denies any n/v or SOB. Pt resting in bed comfortably. Pt has L EJ 18g w/D5W@125ml/hr. Pt has bilateral soft wrist restraints for pulling devices/safety. Bed in low and locked position, call light within reach, bedside table within reach. Continue to monitor.
[2019-12-27] MEDS: Cefepime HCl 1 GM in D5W 55 ML IVPB SCH (21:30)
[2019-12-28] VITALS: BP 113/62
[2019-12-28 04:00] VITALS: BP 105/67
--- NOTE | 2019-12-28 07:12 | NUR ---
HAND-OFF: Report given to Keila CHRIS.
--- NOTE | 2019-12-28 07:13 | NUR ---
NURSE NOTES: received patient report from mahesh collado. patient is on bed asleep. not in acute distress. on B soft wrist restraints. no reports of srrythmias last night. nio acute events. bed is low and locked for safety. will follow plan of care.
[2019-12-28 07:14] LABS: BASOPHILS % (AUTO) 0.6 % (0.0-2.0); EOSINOPHILS % (AUTO) 0.4 % (0.0-3.0); HEMATOCRIT 31.8 % (37.0-47.0); HEMOGLOBIN 9.4 G/DL (12.0-16.0); LYMPHOCYTES % (AUTO) 25.7 % (20.0-45.0); MEAN CORPUSCULAR VOLUME 107 FL (80-99); MONOCYTES % (AUTO) 9.4 % (1.0-10.0); NEUTROPHILS % (AUTO) 63.9 % (45.0-75.0); PLATELET COUNT 148 K/UL (150-450); RED BLOOD COUNT 2.97 M/UL (4.20-5.40); RED CELL DISTRIBUTION WIDTH 16.8 % (11.6-14.8); WHITE BLOOD COUNT 8.2 K/UL (4.8-10.8)
[2019-12-28 07:58] LABS: ALANINE AMINOTRANSFERASE 13 U/L (12-78); ALBUMIN 1.1 G/DL (3.4-5.0); ALBUMIN/GLOBULIN RATIO 0.3 (1.0-2.7); ALKALINE PHOSPHATASE 87 U/L (46-116); ANION GAP 7 mmol/L (5-15); ASPARTATE AMINO TRANSFERASE 25 U/L (15-37); BILIRUBIN,TOTAL 0.3 MG/DL (0.2-1.0); BLOOD UREA NITROGEN 10 mg/dL (7-18); CALCIUM 7.1 MG/DL (8.5-10.1); CARBON DIOXIDE 28 MMOL/L (21-32); CHLORIDE 125 MMOL/L (98-107); CREATININE 1.5 MG/DL (0.55-1.30); PHOSPHORUS 3.2 MG/DL (2.5-4.9); POTASSIUM 3.6 MMOL/L (3.5-5.1); SODIUM 160 MMOL/L (136-145)
[2019-12-28 08:00] VITALS: BP 135/46
[2019-12-28] MEDS: Benztropine 1mg tab ORAL SCH ×2 (08:15→17:11)
[2019-12-28] MEDS: Depakote ER 500mg tab ORAL SCH (08:16)
[2019-12-28] MEDS: Pantoprazole Inj IVP SCH ×2 (08:16→21:57)
[2019-12-28] MEDS: Docusate 100mg cap ORAL SCH ×3 (08:16→17:10)
[2019-12-28] MEDS: dexAMETHasone 10mg/ml Inj IV SCH (08:17)
[2019-12-28] MEDS: Ziprasidone 20mg cap ORAL SCH ×2 (08:21→22:00)
[2019-12-28] MEDS: Heparin 5000 units/ml inj SUBQ SCH ×2 (08:24→22:30)
--- NOTE | 2019-12-28 10:16 | Infectious Diseases Prog Note ---
Assessment/Plan Assessment/Plan antibiotics : cefepime A 1. e.coli sepsis 2. COVID 19 pneumonia on 2 liters, 100 percent saturation 3. incarcerated hernia s/p repair with mesh, lysis of adhesions 4. hypertension 5. renal failure 6. bipolar disorder 7. asthma 8. pseudomonas UTI P 1, continue cefepime 4 more days 2. continue dexamethasone day 9 3. continue isolation 4. will follow up cultures Subjective Constitutional: Denies: fever, chills Respiratory: Reports: dry cough - decreased; Denies: shortness of breath Gastrointestinal/Abdominal: Denies: nausea, vomiting, diarrhea Musculoskeletal: Denies: pain Allergies: Coded Allergies: IBUPROFEN (Verified Allergy, Unknown, 12/20/19) Objective Last 24 Hour Vital Signs Date Time Temp Pulse Resp B/P (MAP) Pulse Ox O2 Delivery O2 Flow Rate FiO2 12/28/19 08:00 98.2 87 20 135/46 (75) 95 12/28/19 07:45 Nasal Cannula 2.0 Nasal Cannula 2.0 12/28/19 04:00 Nasal Cannula 2.0 Nasal Cannula 2.0 12/28/19 04:00 97.2 79 20 105/67 (80) 100 12/28/19 03:35 69 12/28/19 00:00 97.0 65 20 113/62 (79) 100 12/28/19 00:00 Nasal Cannula 2.0 Nasal Cannula 2.0 12/28/19 00:00 72 12/27/19 20:00 Nasal Cannula 2.0 Nasal Cannula 2.0 12/27/19 20:00 71 12/27/19 20:00 97.0 82 20 106/67 (80) 100 12/27/19 16:00 91 12/27/19 16:00 Nasal Cannula 2.0 Nasal Cannula 2.0 12/27/19 16:00 97.1 85 20 108/66 (80) 95 12/27/19 13:38 103 12/27/19 12:00 Nasal Cannula 2.0 Nasal Cannula 2.0 12/27/19 12:00 97.4 63 21 111/70 (84) 100 12/27/19 11:00 64 22 107/75 (86) 100 Height (Feet): 5 Height (Inches): 4.00 Weight (Pounds): 156 Laboratory Tests Test 12/28/19 04:00 12/28/19 06:00 Urine Random Sodium 24 mmol/L (20-110) White Blood Count 8.2 K/UL (4.8-10.8) Red Blood Count 2.97 M/UL (4.20-5.40) L Hemoglobin 9.4 G/DL (12.0-16.0) L Hematocrit 31.8 % (37.0-47.0) L Mean Corpuscular Volume 107 FL (80-99) H Mean Corpuscular Hemoglobin 31.7 PG (27.0-31.0) H Mean Corpuscular Hemoglobin Concent 29.6 G/DL (32.0-36.0) L Red Cell Distribution Width 16.8 % (11.6-14.8) H Platelet Count 148 K/UL (150-450) L Mean Platelet Volume 6.8 FL (6.5-10.1) Neutrophils (%) (Auto) 63.9 % (45.0-75.0) Lymphocytes (%) (Auto) 25.7 % (20.0-45.0) Monocytes (%) (Auto) 9.4 % (1.0-10.0) Eosinophils (%) (Auto) 0.4 % (0.0-3.0) Basophils (%) (Auto) 0.6 % (0.0-2.0) Sodium Level 160 MMOL/L (136-145) H Potassium Level 3.6 MMOL/L (3.5-5.1) Chloride Level 125 MMOL/L (98-107) H Carbon Dioxide Level 28 MMOL/L (21-32) Anion Gap 7 mmol/L (5-15) Blood Urea Nitrogen 10 mg/dL (7-18) Creatinine 1.5 MG/DL (0.55-1.30) H Estimat Glomerular Filtration Rate 44.1 mL/min (>60) Glucose Level 65 MG/DL (74-106) L Calcium Level 7.1 MG/DL (8.5-10.1) L Phosphorus Level 3.2 MG/DL (2.5-4.9) Magnesium Level 1.9 MG/DL (1.8-2.4) Total Bilirubin 0.3 MG/DL (0.2-1.0) Aspartate Amino Transf (AST/SGOT) 25 U/L (15-37) Alanine Aminotransferase (ALT/SGPT) 13 U/L (12-78) Alkaline Phosphatase 87 U/L (46-116) Total Protein 5.4 G/DL (6.4-8.2) L Albumin 1.1 G/DL (3.4-5.0) L Globulin 4.3 g/dL Albumin/Globulin Ratio 0.3 (1.0-2.7) L Current Medications Medications (Trade) Dose Ordered Sig/Venita Route PRN Reason Start Time Stop Time Status Last Admin Dose Admin Benztropine Mesylate (Cogentin) 2 mg BID ORAL 12/27/19 18:00 01/20/20 08:59 12/28/19 08:15 Cefepime HCl 1 gm/ Dextrose 55 ml @ 110 mls/hr Q24H IVPB 12/27/19 21:00 01/02/20 20:59 12/27/19 21:30 Dexamethasone Sodium Phosphate (Decadron 10mg/ ml Inj) 6 mg DAILY IV 12/28/19 09:00 01/01/20 08:59 12/28/19 08:17 Dextrose 1,000 ml @ 100 mls/hr Q10H IV 12/28/19 09:00 01/22/20 08:59 12/28/19 08:15 Divalproex Sodium (Depakote ER) 500 mg DAILY ORAL 12/28/19 09:00 01/20/20 08:59 12/28/19 08:16 Docusate Sodium (Colace) 100 mg THREE TIMES A DAY ORAL 12/27/19 13:00 01/20/20 08:59 12/28/19 08:16 Haloperidol (Haldol) 5 mg TID ORAL 12/27/19 13:00 02/04/20 13:59 12/28/19 08:16 Heparin Sodium (Porcine) (Heparin 5000 units/ml) 5,000 units EVERY 12 HOURS SUBQ 12/27/19 21:00 02/09/20 08:59 12/28/19 08:24 Hydralazine HCl (Apresoline) 10 mg Q4H PRN IV Blood pressure over 160 systol 12/27/19 12:45 03/24/20 16:37 Lorazepam (Ativan 2mg/ml 1ml) 1 mg Q4H PRN IV For Anxiety 12/27/19 12:45 01/01/20 16:37 Lorazepam (Ativan) 1 mg Q6H PRN ORAL Agitation 12/27/19 13:00 01/01/20 12:59 Pantoprazole (Protonix) 40 mg EVERY 12 HOURS IVP 12/27/19 21:00 01/24/20 20:59 12/28/19 08:16 Ziprasidone (Geodon) 40 mg Q12HR ORAL 12/27/19 21:00 02/04/20 20:59 12/28/19 08:21 Penny Montague MD Dec 28, 2019 10:16
--- NOTE | 2019-12-28 10:17 | Pulmonology Progress Note ---
Subjective ROS Limited/Unobtainable: No Interval Events: Extubated on 12/27/19 HEENT: Repors: no symptoms Respiratory: Reports: no symptoms Cardiovascular: Reports: no symptoms Gastrointestinal/Abdominal: Denies: nausea, vomiting, diarrhea Genitourinary: Reports: no symptoms Neurologic: Reports: no symptoms Musculoskeletal: Denies: pain Allergies: Coded Allergies: IBUPROFEN (Verified Allergy, Unknown, 12/20/19) All Systems: reviewed and negative except above Objective Last 24 Hour Vital Signs Date Time Temp Pulse Resp B/P (MAP) Pulse Ox O2 Delivery O2 Flow Rate FiO2 12/28/19 08:00 98.2 87 20 135/46 (75) 95 12/28/19 07:45 Nasal Cannula 2.0 Nasal Cannula 2.0 12/28/19 04:00 Nasal Cannula 2.0 Nasal Cannula 2.0 12/28/19 04:00 97.2 79 20 105/67 (80) 100 12/28/19 03:35 69 12/28/19 00:00 97.0 65 20 113/62 (79) 100 12/28/19 00:00 Nasal Cannula 2.0 Nasal Cannula 2.0 12/28/19 00:00 72 12/27/19 20:00 Nasal Cannula 2.0 Nasal Cannula 2.0 12/27/19 20:00 71 12/27/19 20:00 97.0 82 20 106/67 (80) 100 12/27/19 16:00 91 12/27/19 16:00 Nasal Cannula 2.0 Nasal Cannula 2.0 12/27/19 16:00 97.1 85 20 108/66 (80) 95 12/27/19 13:38 103 12/27/19 12:00 Nasal Cannula 2.0 Nasal Cannula 2.0 12/27/19 12:00 97.4 63 21 111/70 (84) 100 12/27/19 11:00 64 22 107/75 (86) 100 Intake and Output 12/27/19 12/28/19 19:00 07:00 Intake Total 700 ml 1055 ml Output Total 350 ml 400 ml Balance 350 ml 655 ml Intake Oral 200 ml IV Total 500 ml 1055 ml Output Urine Total 350 ml 400 ml General Appearance: no acute distress HEENT: normocephalic Respiratory: chest wall non-tender Cardiovascular: normal peripheral pulses, normal rate Abdomen: normal bowel sounds Extremities: no cyanosis Laboratory Tests 12/28/19 04:00: Urine Random Sodium 24 12/28/19 06:00: White Blood Count 8.2, Red Blood Count 2.97L, Hemoglobin 9.4L, Hematocrit 31.8L , Mean Corpuscular Volume 107H, Mean Corpuscular Hemoglobin 31.7H, Mean Corpuscular Hemoglobin Concent 29.6L, Red Cell Distribution Width 16.8H, Platelet Count 148L, Mean Platelet Volume 6.8, Neutrophils (%) (Auto) 63.9, Lymphocytes (%) (Auto) 25.7, Monocytes (%) (Auto) 9.4, Eosinophils (%) (Auto) 0.4, Basophils (%) (Auto) 0.6, Sodium Level 160H, Potassium Level 3.6, Chloride Level 125H, Carbon Dioxide Level 28, Anion Gap 7, Blood Urea Nitrogen 10, Creatinine 1.5H, Estimat Glomerular Filtration Rate 44.1, Glucose Level 65L, Calcium Level 7.1L, Phosphorus Level 3.2, Magnesium Level 1.9, Total Bilirubin 0.3, Aspartate Amino Transf (AST/SGOT) 25, Alanine Aminotransferase (ALT/SGPT) 13, Alkaline Phosphatase 87, Total Protein 5.4L, Albumin 1.1L, Globulin 4.3, Albumin/Globulin Ratio 0.3L Current Medications Medications (Trade) Dose Ordered Sig/Venita Route PRN Reason Start Time Stop Time Status Last Admin Dose Admin Benztropine Mesylate (Cogentin) 2 mg BID ORAL 12/27/19 18:00 01/20/20 08:59 12/28/19 08:15 Cefepime HCl 1 gm/ Dextrose 55 ml @ 110 mls/hr Q24H IVPB 12/27/19 21:00 01/02/20 20:59 12/27/19 21:30 Dexamethasone Sodium Phosphate (Decadron 10mg/ ml Inj) 6 mg DAILY IV 12/28/19 09:00 01/01/20 08:59 12/28/19 08:17 Dextrose 1,000 ml @ 100 mls/hr Q10H IV 12/28/19 09:00 01/22/20 08:59 12/28/19 08:15 Divalproex Sodium (Depakote ER) 500 mg DAILY ORAL 12/28/19 09:00 01/20/20 08:59 12/28/19 08:16 Docusate Sodium (Colace) 100 mg THREE TIMES A DAY ORAL 12/27/19 13:00 01/20/20 08:59 12/28/19 08:16 Haloperidol (Haldol) 5 mg TID ORAL 12/27/19 13:00 02/04/20 13:59 12/28/19 08:16 Heparin Sodium (Porcine) (Heparin 5000 units/ml) 5,000 units EVERY 12 HOURS SUBQ 12/27/19 21:00 02/09/20 08:59 12/28/19 08:24 Hydralazine HCl (Apresoline) 10 mg Q4H PRN IV Blood pressure over 160 systol 12/27/19 12:45 03/24/20 16:37 Lorazepam (Ativan 2mg/ml 1ml) 1 mg Q4H PRN IV For Anxiety 12/27/19 12:45 01/01/20 16:37 Lorazepam (Ativan) 1 mg Q6H PRN ORAL Agitation 12/27/19 13:00 01/01/20 12:59 Pantoprazole (Protonix) 40 mg EVERY 12 HOURS IVP 12/27/19 21:00 01/24/20 20:59 12/28/19 08:16 Ziprasidone (Geodon) 40 mg Q12HR ORAL 12/27/19 21:00 02/04/20 20:59 12/28/19 08:21 Assessment/Plan Assessment/Plan IMPRESSION: 1. Confirmed COVID-19 pneumonia. 2. Hypernatremia. Improved 3. Psych disorder. 4. long-term resident. 5. E Coli bacteremia 6. Incarcerated hernia s/p repair DISCUSSION: Agree with current medications and care. Continue steroids. Continue medications. 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 Abx per ID On 2L/min O2 Roberta Manzo Omar Syed MD Dec 28, 2019 10:17
[2019-12-28 12:00] VITALS: BP 104/68
--- NOTE | 2019-12-28 12:11 | General Progress Note ---
Assessment/Plan Problem List: (1) UTI (urinary tract infection) ICD Codes: N39.0 - Urinary tract infection, site not specified SNOMED: 04031619 (2) Malnutrition ICD Codes: E46 - Unspecified protein-calorie malnutrition SNOMED: 76064666 (3) Renal failure ICD Codes: N19 - Unspecified kidney failure SNOMED: 44484051 (4) HTN (hypertension) ICD Codes: I10 - Essential (primary) hypertension SNOMED: 60707500 (5) Hypoglycemia ICD Codes: E16.2 - Hypoglycemia, unspecified SNOMED: 095775126 (6) Hypernatremia ICD Codes: E87.0 - Hyperosmolality and hypernatremia SNOMED: 202120026 (7) Suspected 2019-nCoV infection ICD Codes: Z20.828 - Contact with and (suspected) exposure to other viral communicable diseases SNOMED: 132162462 Status: unchanged Assessment/Plan: o2 pulm tx abx pt diet cbc bmp am wound care ltach eval Subjective Constitutional: Reports: weakness Allergies: Coded Allergies: IBUPROFEN (Verified Allergy, Unknown, 12/20/19) All Systems: reviewed and negative except above Subjective o2nc calm Objective Last 24 Hour Vital Signs Date Time Temp Pulse Resp B/P (MAP) Pulse Ox O2 Delivery O2 Flow Rate FiO2 12/28/19 08:00 98.2 87 20 135/46 (75) 95 12/28/19 07:45 Nasal Cannula 2.0 Nasal Cannula 2.0 12/28/19 04:00 Nasal Cannula 2.0 Nasal Cannula 2.0 12/28/19 04:00 97.2 79 20 105/67 (80) 100 12/28/19 03:35 69 12/28/19 00:00 97.0 65 20 113/62 (79) 100 12/28/19 00:00 Nasal Cannula 2.0 Nasal Cannula 2.0 12/28/19 00:00 72 12/27/19 20:00 Nasal Cannula 2.0 Nasal Cannula 2.0 12/27/19 20:00 71 12/27/19 20:00 97.0 82 20 106/67 (80) 100 12/27/19 16:00 91 12/27/19 16:00 Nasal Cannula 2.0 Nasal Cannula 2.0 12/27/19 16:00 97.1 85 20 108/66 (80) 95 12/27/19 13:38 103 Intake and Output 12/27/19 12/28/19 19:00 07:00 Intake Total 700 ml 1055 ml Output Total 350 ml 400 ml Balance 350 ml 655 ml Intake Oral 200 ml IV Total 500 ml 1055 ml Output Urine Total 350 ml 400 ml Laboratory Tests 12/28/19 04:00: Urine Random Sodium 24 12/28/19 06:00: White Blood Count 8.2, Red Blood Count 2.97L, Hemoglobin 9.4L, Hematocrit 31.8L , Mean Corpuscular Volume 107H, Mean Corpuscular Hemoglobin 31.7H, Mean Corpuscular Hemoglobin Concent 29.6L, Red Cell Distribution Width 16.8H, Platelet Count 148L, Mean Platelet Volume 6.8, Neutrophils (%) (Auto) 63.9, Lymphocytes (%) (Auto) 25.7, Monocytes (%) (Auto) 9.4, Eosinophils (%) (Auto) 0.4, Basophils (%) (Auto) 0.6, Sodium Level 160H, Potassium Level 3.6, Chloride Level 125H, Carbon Dioxide Level 28, Anion Gap 7, Blood Urea Nitrogen 10, Creatinine 1.5H, Estimat Glomerular Filtration Rate 44.1, Glucose Level 65L, Calcium Level 7.1L, Phosphorus Level 3.2, Magnesium Level 1.9, Total Bilirubin 0.3, Aspartate Amino Transf (AST/SGOT) 25, Alanine Aminotransferase (ALT/SGPT) 13, Alkaline Phosphatase 87, Total Protein 5.4L, Albumin 1.1L, Globulin 4.3, Albumin/Globulin Ratio 0.3L Height (Feet): 5 Height (Inches): 4.00 Weight (Pounds): 156 General Appearance: lethargic EENT: normal ENT inspection Neck: normal alignment, supple Cardiovascular: normal rate, regular rhythm Respiratory/Chest: no respiratory distress, no accessory muscle use Extremities: normal inspection Skin: normal pigmentation Ricky Potter DO Dec 28, 2019 12:11
--- NOTE | 2019-12-28 13:26 | Nephrology Progress Note ---
Assessment/Plan Problem List: (1) Renal failure Assessment: Acute on chronic (2) Suspected 2019-nCoV infection Assessment: Acute febrile illness (3) Hypernatremia Assessment: Improving (4) Hypoglycemia Assessment: Improving Assessment Renal failure, most likely chronic, with superimposed acute renal failure. Acute febrile illness, suspected COVID-19 infection. Hypernatremia, likely due to free water deficit. Hypoglycemia Severe hypoalbuminemia Atypical pneumonia Anemia History of psych disease Plan December 27: Now in [facility]. Postop day 3. On nasal cannula. Labs reviewed. Hypernatremia improving. Continue D5W however will cut down the rate. Continue to monitor electrolytes. Continue per consultants. December 26: Remains in ICU. Postop day 2. Is now extubated. Lab reviewed. Hypernatremia persists. Continue D5W. Discussed with RN. December 25: Patient in ICU. Had surgery yesterday December 24. Patient remains intubated, due for extubation. Lab reviewed. Discussed with RN. Continue D5W for hypernatremia. Patient overall stable from renal standpoint of view. December 24: Renal parameters reviewed. Creatinine within normal limit. Serum sodium remains high. Patient due for hernia surgery today. Continue D5W IV fluid. December 23: Renal parameters reviewed. Creatinine down to 1.4. Serum sodium higher. Patient is being investigated for incarcerated ventral hernia by general surgery. Continue current IV fluid and monitor renal parameters. December 22: Will recheck serum potassium. If nonhemolyzed value still elevated will treat hyperkalemia. Discussed with DOT Leary. Continue the rest of the medication. Stop blood pressure medication due to low blood pressure, adjust the dose when the blood pressure improves PRN IV hydralazine for blood pressure spike D5W IV hydration Protonix p.o. Albumin IV bolus Monitor renal parameters Continue per consultants Saha catheter, urine studies Subjective ROS Limited/Unobtainable: No Constitutional: Reports: malaise, weakness Objective Objective Last 24 Hour Vital Signs Date Time Temp Pulse Resp B/P (MAP) Pulse Ox O2 Delivery O2 Flow Rate FiO2 12/28/19 12:00 98.0 82 20 104/68 (80) 95 12/28/19 12:00 Nasal Cannula 2.0 Nasal Cannula 2.0 12/28/19 11:23 50 12/28/19 08:00 98.2 87 20 135/46 (75) 95 12/28/19 07:47 84 12/28/19 07:45 Nasal Cannula 2.0 Nasal Cannula 2.0 12/28/19 04:00 Nasal Cannula 2.0 Nasal Cannula 2.0 12/28/19 04:00 97.2 79 20 105/67 (80) 100 12/28/19 03:35 69 12/28/19 00:00 97.0 65 20 113/62 (79) 100 12/28/19 00:00 Nasal Cannula 2.0 Nasal Cannula 2.0 12/28/19 00:00 72 12/27/19 20:00 Nasal Cannula 2.0 Nasal Cannula 2.0 12/27/19 20:00 71 12/27/19 20:00 97.0 82 20 106/67 (80) 100 12/27/19 16:00 91 12/27/19 16:00 Nasal Cannula 2.0 Nasal Cannula 2.0 12/27/19 16:00 97.1 85 20 108/66 (80) 95 12/27/19 13:38 103 Intake and Output 12/27/19 12/28/19 19:00 07:00 Intake Total 700 ml 1055 ml Output Total 350 ml 400 ml Balance 350 ml 655 ml Intake Oral 200 ml IV Total 500 ml 1055 ml Output Urine Total 350 ml 400 ml Laboratory Tests 12/28/19 04:00: Urine Random Sodium 24 12/28/19 06:00: White Blood Count 8.2, Red Blood Count 2.97L, Hemoglobin 9.4L, Hematocrit 31.8L , Mean Corpuscular Volume 107H, Mean Corpuscular Hemoglobin 31.7H, Mean Corpuscular Hemoglobin Concent 29.6L, Red Cell Distribution Width 16.8H, Platelet Count 148L, Mean Platelet Volume 6.8, Neutrophils (%) (Auto) 63.9, Lymphocytes (%) (Auto) 25.7, Monocytes (%) (Auto) 9.4, Eosinophils (%) (Auto) 0.4, Basophils (%) (Auto) 0.6, Sodium Level 160H, Potassium Level 3.6, Chloride Level 125H, Carbon Dioxide Level 28, Anion Gap 7, Blood Urea Nitrogen 10, Creatinine 1.5H, Estimat Glomerular Filtration Rate 44.1, Glucose Level 65L, Calcium Level 7.1L, Phosphorus Level 3.2, Magnesium Level 1.9, Total Bilirubin 0.3, Aspartate Amino Transf (AST/SGOT) 25, Alanine Aminotransferase (ALT/SGPT) 13, Alkaline Phosphatase 87, Total Protein 5.4L, Albumin 1.1L, Globulin 4.3, Albumin/Globulin Ratio 0.3L Height (Feet): 5 Height (Inches): 4.00 Weight (Pounds): 156 General Appearance: no apparent distress, lethargic EENT: other - On nasal cannula Cardiovascular: other - Variable rate Respiratory/Chest: decreased breath sounds Abdomen: distended Brian Pichardo MD Dec 28, 2019 13:26
--- NOTE | 2019-12-28 14:00 | NUR ---
NURSE NOTES: dr kahn made aware that patients HR went down to 50s while asleep. No new order received.
--- NOTE | 2019-12-28 15:12 | Cardiac Electrophysiology PN ---
Assessment/Plan Assessment/Plan 1. Hypotension. Likely due to dehydration as Sodium was 169 on arrival and sepsis. Resolved. Echocardiogram EF 65% 2. Hypertension, on p.r.n. IV hydralazine. 3. Severe hypernatremia. Patient is on IV fluid per Dr. Pichardo. 4. COVID-19 PNA in isolation. 5. K 6.0. Erroneous. Repeat 3.4 6. Incarcerated incisional ventral hernia and Bowel obstruction.S/P surgery by Dr Vargas. 7. S/P Respiratory failure, extubated 12/26/19 INGRID RN Subjective Subjective Covid positive transferred to SDU. S/P incarcerated ventral hernia surgery 12/24 Objective Last 24 Hour Vital Signs Date Time Temp Pulse Resp B/P (MAP) Pulse Ox O2 Delivery O2 Flow Rate FiO2 12/28/19 12:00 98.0 82 20 104/68 (80) 95 12/28/19 12:00 Nasal Cannula 2.0 Nasal Cannula 2.0 12/28/19 11:23 50 12/28/19 08:00 98.2 87 20 135/46 (75) 95 12/28/19 07:47 84 12/28/19 07:45 Nasal Cannula 2.0 Nasal Cannula 2.0 12/28/19 04:00 Nasal Cannula 2.0 Nasal Cannula 2.0 12/28/19 04:00 97.2 79 20 105/67 (80) 100 12/28/19 03:35 69 12/28/19 00:00 97.0 65 20 113/62 (79) 100 12/28/19 00:00 Nasal Cannula 2.0 Nasal Cannula 2.0 12/28/19 00:00 72 12/27/19 20:00 Nasal Cannula 2.0 Nasal Cannula 2.0 12/27/19 20:00 71 12/27/19 20:00 97.0 82 20 106/67 (80) 100 12/27/19 16:00 91 12/27/19 16:00 Nasal Cannula 2.0 Nasal Cannula 2.0 12/27/19 16:00 97.1 85 20 108/66 (80) 95 Intake and Output 12/27/19 12/28/19 19:00 07:00 Intake Total 700 ml 1055 ml Output Total 350 ml 400 ml Balance 350 ml 655 ml Intake Oral 200 ml IV Total 500 ml 1055 ml Output Urine Total 350 ml 400 ml Laboratory Tests Test 12/28/19 04:00 12/28/19 06:00 Urine Random Sodium 24 mmol/L (20-110) White Blood Count 8.2 K/UL (4.8-10.8) Red Blood Count 2.97 M/UL (4.20-5.40) L Hemoglobin 9.4 G/DL (12.0-16.0) L Hematocrit 31.8 % (37.0-47.0) L Mean Corpuscular Volume 107 FL (80-99) H Mean Corpuscular Hemoglobin 31.7 PG (27.0-31.0) H Mean Corpuscular Hemoglobin Concent 29.6 G/DL (32.0-36.0) L Red Cell Distribution Width 16.8 % (11.6-14.8) H Platelet Count 148 K/UL (150-450) L Mean Platelet Volume 6.8 FL (6.5-10.1) Neutrophils (%) (Auto) 63.9 % (45.0-75.0) Lymphocytes (%) (Auto) 25.7 % (20.0-45.0) Monocytes (%) (Auto) 9.4 % (1.0-10.0) Eosinophils (%) (Auto) 0.4 % (0.0-3.0) Basophils (%) (Auto) 0.6 % (0.0-2.0) Sodium Level 160 MMOL/L (136-145) H Potassium Level 3.6 MMOL/L (3.5-5.1) Chloride Level 125 MMOL/L (98-107) H Carbon Dioxide Level 28 MMOL/L (21-32) Anion Gap 7 mmol/L (5-15) Blood Urea Nitrogen 10 mg/dL (7-18) Creatinine 1.5 MG/DL (0.55-1.30) H Estimat Glomerular Filtration Rate 44.1 mL/min (>60) Glucose Level 65 MG/DL (74-106) L Calcium Level 7.1 MG/DL (8.5-10.1) L Phosphorus Level 3.2 MG/DL (2.5-4.9) Magnesium Level 1.9 MG/DL (1.8-2.4) Total Bilirubin 0.3 MG/DL (0.2-1.0) Aspartate Amino Transf (AST/SGOT) 25 U/L (15-37) Alanine Aminotransferase (ALT/SGPT) 13 U/L (12-78) Alkaline Phosphatase 87 U/L (46-116) Total Protein 5.4 G/DL (6.4-8.2) L Albumin 1.1 G/DL (3.4-5.0) L Globulin 4.3 g/dL Albumin/Globulin Ratio 0.3 (1.0-2.7) L Objective HEAD AND NECK: No JVD. LUNGS: Coarse rhonchi. CARDIOVASCULAR: regular S1, S2. ABDOMEN: Soft. S/P hernia surgery EXTREMITIES: No pitting edema. Steffen Mera MD Dec 28, 2019 15:12
--- NOTE | 2019-12-28 15:14 | NUR ---
NURSE NOTES: left a message to dr Potter regarding patients head lice. awaiting callback and new order.
--- NOTE | 2019-12-28 15:32 | NUR ---
NURSE NOTES: left a message to dr swanson regarding patients head lice as per instruction from dr carrillo. awaiting callback and new order.
[2019-12-28 16:00] VITALS: BP 123/72
[2019-12-28] MEDS ORDERED: Lice Treatment Shampoo 4oz Bottle TOPIC SCH (16:00)
[2019-12-28] MEDS ORDERED: NS 275ml ONE ×2 (17:53→17:54)
[2019-12-28] MEDS ORDERED: Tubing IV Secondary IV ONE (17:54)
--- NOTE | 2019-12-28 19:09 | NUR ---
HAND-OFF: Report given to minerva collado.
--- NOTE | 2019-12-28 19:30 | NUR ---
NURSE NOTES: Received pt's report from DOT Pedraza. Pt is alert, but confused. Pt states "pt ordered [place] foods." Pt is on room air. No sS of respiratory distress is noted. Pt is laying on bed. Pt Picc line and Left hand IV patent, intact noted. Pt is on semi-hernandez position. Bed alarm is on. Call-light within reach. Will continue to monitor and follow plan of care.
[2019-12-28 20:00] VITALS: BP 105/71
--- NOTE | 2019-12-28 21:14 | Progress Note ---
DATE: 12/28/2019 SUBJECTIVE: This is a 54-year-old female patient with COVID-19 hernia. However, this patient also has other medical problems such as urinary tract infection, hypertension, renal failure, malnutrition as well as ventral hernia and history of pneumonia with acute febrile illness causing a decline in cognition below baseline. That is why her attending physician has requested daily psychiatric consultation. MENTAL STATUS EXAMINATION: A 54-year-old female patient. Her appearance is disheveled. Attitude, irritable and agitated. Affect is labile. Intellect poor. Mood, depressed and anxious. Motor activity, psychomotor agitation. Attention is poor. Orientation x2. Speech is low volume, slurred. Thought process, disorganized and illogical. Insight and judgment are poor. DIAGNOSIS: Paranoid schizophrenia with acute exacerbation. PLAN: Plan for this patient is to treat her with a medication regimen consisting of Geodon 40 mg twice a day as well as Haldol 5 mg 3 times a day, Ativan 1 every 6 hours p.r.n. anxiety and agitation, and Depakote 500 mg daily. Twenty minutes of cognitive behavioral therapy will help identify her automatic negative thoughts and help her convert those negative thoughts to more positive thoughts to reduce depression, anxiety, and mood lability. Chart was reviewed. Discussed with staff. The patient was seen and assessed at bedside. Flip Burgos M.D. DR: HARRIS JOB#: [id number] CC:
[2019-12-28] MEDS: Cefepime HCl 1 GM in D5W 55 ML IVPB SCH (21:58)
[2019-12-29] VITALS: BP 114/72
[2019-12-29 04:00] VITALS: BP 125/73
[2019-12-29 07:30] VITALS: BP 109/70
--- NOTE | 2019-12-29 07:34 | NUR ---
HAND-OFF: Report given to Sapphire.
--- NOTE | 2019-12-29 07:35 | NUR ---
NURSE NOTES: Received report from DOT Epps. The patient is resting on the bed but confused, agitated, and combative. The patient can make needs known via verbal communication. SR of 80s on the desk monitor. The patient is on room air and saturation is 100%. Per night nurse, Saha out per the physician order. Diarrhea noted during traffic control operator. IV on L EJ 18G and L hand 22G that is running D5W @100mL/hr per order. Skin issue noted and dressing intact. The patient's bed in the lowest position, call light in reach, and fall and aspiration precaution reinforced. Will follow up the lab and order. Will continue plan of care.
--- NOTE | 2019-12-29 07:40 | NUR ---
NURSE NOTES: Checked blood sugar. Critical result of [address] Yang. Dr. Yang ordered D50W now. The patient is asymptomatic and talking to the nurse. Will recheck in 15 minutes. Will continue plan of care. Addendum: 12/29/19 at 1102 by Curt Brantley RN Dr. Yang also ordered Cortisol level. Will continue plan of care.
--- NOTE | 2019-12-29 07:55 | NUR ---
NURSE NOTES: Rechecked blood sugar. Blood sugar of 107 noted after D50W push. Will closely monitor the patient. Will continue plan of care.
--- NOTE | 2019-12-29 08:04 | Pulmonology Progress Note ---
Subjective ROS Limited/Unobtainable: No Interval Events: Extubated on 12/27/19 HEENT: Repors: no symptoms Respiratory: Reports: no symptoms Cardiovascular: Reports: no symptoms Gastrointestinal/Abdominal: Denies: nausea, vomiting, diarrhea Genitourinary: Reports: no symptoms Neurologic: Reports: no symptoms Musculoskeletal: Denies: pain Allergies: Coded Allergies: IBUPROFEN (Verified Allergy, Unknown, 12/20/19) All Systems: reviewed and negative except above Objective Last 24 Hour Vital Signs Date Time Temp Pulse Resp B/P (MAP) Pulse Ox O2 Delivery O2 Flow Rate FiO2 12/29/19 07:30 97.2 87 18 109/70 (83) 99 12/29/19 04:00 Room Air Room Air 12/29/19 04:00 97.3 89 18 125/73 (90) 99 12/29/19 03:54 83 12/29/19 00:00 97.3 88 20 114/72 (86) 95 12/29/19 00:00 Room Air Room Air 12/28/19 23:39 133 12/28/19 20:00 97.7 91 22 105/71 (82) 94 12/28/19 20:00 Room Air Room Air 12/28/19 19:55 83 12/28/19 16:00 97.9 82 18 123/72 (89) 96 12/28/19 16:00 Nasal Cannula 2.0 Nasal Cannula 2.0 12/28/19 15:28 67 12/28/19 12:00 98.0 82 20 104/68 (80) 95 12/28/19 12:00 Nasal Cannula 2.0 Nasal Cannula 2.0 12/28/19 11:23 50 Intake and Output 12/28/19 12/29/19 19:00 07:00 Intake Total 2700 ml 1100 ml Output Total 900 ml 600 ml Balance 1800 ml 500 ml Intake Oral 1800 ml IV Total 900 ml 1100 ml Output Urine Total 900 ml 600 ml # Bowel Movements 2 General Appearance: no acute distress HEENT: normocephalic Respiratory: chest wall non-tender Cardiovascular: normal peripheral pulses, normal rate Abdomen: normal bowel sounds Extremities: no cyanosis Laboratory Tests 12/29/19 07:46: POC Whole Blood Glucose [Pending] Current Medications Medications (Trade) Dose Ordered Sig/Venita Route PRN Reason Start Time Stop Time Status Last Admin Dose Admin Benztropine Mesylate (Cogentin) 2 mg BID ORAL 12/27/19 18:00 01/20/20 08:59 12/28/19 17:11 Cefepime HCl 1 gm/ Dextrose 55 ml @ 110 mls/hr Q24H IVPB 12/27/19 21:00 01/02/20 20:59 12/28/19 21:58 Dexamethasone Sodium Phosphate (Decadron 10mg/ ml Inj) 6 mg DAILY IV 12/28/19 09:00 01/01/20 08:59 12/28/19 08:17 Dextrose 1,000 ml @ 100 mls/hr Q10H IV 12/28/19 09:00 01/22/20 08:59 12/29/19 04:54 Dextrose (Dextrose 50%) 50 ml ONCE IV 12/29/19 07:48 12/29/19 09:30 12/29/19 07:53 Divalproex Sodium (Depakote ER) 500 mg DAILY ORAL 12/28/19 09:00 01/20/20 08:59 12/28/19 08:16 Docusate Sodium (Colace) 100 mg THREE TIMES A DAY ORAL 12/27/19 13:00 01/20/20 08:59 12/28/19 17:10 Haloperidol (Haldol) 5 mg TID ORAL 12/27/19 13:00 02/04/20 13:59 12/28/19 17:10 Heparin Sodium (Porcine) (Heparin 5000 units/ml) 5,000 units EVERY 12 HOURS SUBQ 12/27/19 21:00 02/09/20 08:59 12/28/19 22:30 Hydralazine HCl (Apresoline) 10 mg Q4H PRN IV Blood pressure over 160 systol 12/27/19 12:45 03/24/20 16:37 Lorazepam (Ativan 2mg/ml 1ml) 1 mg Q4H PRN IV For Anxiety 12/27/19 12:45 01/01/20 16:37 Lorazepam (Ativan) 1 mg Q6H PRN ORAL Agitation 12/27/19 13:00 01/01/20 12:59 Pantoprazole (Protonix) 40 mg EVERY 12 HOURS IVP 12/27/19 21:00 01/24/20 20:59 12/28/19 21:57 Ziprasidone (Geodon) 40 mg Q12HR ORAL 12/27/19 21:00 02/04/20 20:59 12/28/19 22:00 Assessment/Plan Assessment/Plan IMPRESSION: 1. Confirmed COVID-19 pneumonia. 2. Hypernatremia. Improved 3. Psych disorder. 4. [facility] resident. 5. E Coli bacteremia 6. Incarcerated hernia s/p repair DISCUSSION: Agree with current medications and care. Continue steroids. Continue medications. 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 Abx per ID On 2L/min O2 Roberta Manzo Omar Syed MD Dec 29, 2019 08:04
[2019-12-29] MEDS: Heparin 5000 units/ml inj SUBQ SCH ×2 (08:52→20:51)
[2019-12-29] MEDS: Docusate 100mg cap ORAL SCH ×3 (09:00→17:17)
[2019-12-29] MEDS: Benztropine 1mg tab ORAL SCH ×2 (09:00→17:16)
--- NOTE | 2019-12-29 09:00 | NUR ---
NURSE NOTES: Bed bath given to the patient. Tolerated well. Will continue plan of care.
[2019-12-29] MEDS: Pantoprazole Inj IVP SCH ×2 (09:17→20:45)
[2019-12-29] MEDS: dexAMETHasone 10mg/ml Inj IV SCH (09:17)
[2019-12-29] MEDS: Depakote ER 500mg tab ORAL SCH (09:18)
[2019-12-29] MEDS: Ziprasidone 20mg cap ORAL SCH ×2 (09:18→20:42)
--- NOTE | 2019-12-29 10:00 | NUR ---
NURSE NOTES: Morning medications administered as ordered. Held stool softner due to diarrhea. Will closely monitor the patient. Will continue plan of care.
--- NOTE | 2019-12-29 10:04 | General Progress Note ---
Assessment/Plan Problem List: (1) UTI (urinary tract infection) ICD Codes: N39.0 - Urinary tract infection, site not specified SNOMED: 88352636 (2) Malnutrition ICD Codes: E46 - Unspecified protein-calorie malnutrition SNOMED: 28069290 (3) Renal failure ICD Codes: N19 - Unspecified kidney failure SNOMED: 88379712 (4) HTN (hypertension) ICD Codes: I10 - Essential (primary) hypertension SNOMED: 53181750 (5) Hypoglycemia ICD Codes: E16.2 - Hypoglycemia, unspecified SNOMED: 269474121 (6) Hypernatremia ICD Codes: E87.0 - Hyperosmolality and hypernatremia SNOMED: 592950308 (7) Suspected 2019-nCoV infection ICD Codes: Z20.828 - Contact with and (suspected) exposure to other viral communicable diseases SNOMED: 395901940 Status: unchanged Assessment/Plan: o2 pulm tx abx pt diet cbc bmp am wound care ltach eval Subjective Constitutional: Reports: weakness Allergies: Coded Allergies: IBUPROFEN (Verified Allergy, Unknown, 12/20/19) All Systems: reviewed and negative except above Subjective o2nc calm Objective Last 24 Hour Vital Signs Date Time Temp Pulse Resp B/P (MAP) Pulse Ox O2 Delivery O2 Flow Rate FiO2 12/29/19 08:00 101 12/29/19 07:30 97.2 87 18 109/70 (83) 99 12/29/19 04:00 Room Air Room Air 12/29/19 04:00 97.3 89 18 125/73 (90) 99 12/29/19 03:54 83 12/29/19 00:00 97.3 88 20 114/72 (86) 95 12/29/19 00:00 Room Air Room Air 12/28/19 23:39 133 12/28/19 20:00 97.7 91 22 105/71 (82) 94 12/28/19 20:00 Room Air Room Air 12/28/19 19:55 83 12/28/19 16:00 97.9 82 18 123/72 (89) 96 12/28/19 16:00 Nasal Cannula 2.0 Nasal Cannula 2.0 12/28/19 15:28 67 12/28/19 12:00 98.0 82 20 104/68 (80) 95 12/28/19 12:00 Nasal Cannula 2.0 Nasal Cannula 2.0 12/28/19 11:23 50 Intake and Output 12/28/19 12/29/19 19:00 07:00 Intake Total 2700 ml 1100 ml Output Total 900 ml 600 ml Balance 1800 ml 500 ml Intake Oral 1800 ml IV Total 900 ml 1100 ml Output Urine Total 900 ml 600 ml # Bowel Movements 2 Laboratory Tests 12/29/19 07:46: POC Whole Blood Glucose [Pending] 12/29/19 07:53: POC Whole Blood Glucose [Pending] 12/29/19 08:05: POC Whole Blood Glucose [Pending] 12/29/19 09:24: POC Whole Blood Glucose [Pending] Height (Feet): 5 Height (Inches): 4.00 Weight (Pounds): 156 General Appearance: lethargic EENT: normal ENT inspection Neck: normal alignment Cardiovascular: normal rate, regular rhythm Respiratory/Chest: no respiratory distress, no accessory muscle use Extremities: normal inspection Skin: normal pigmentation Ricky Potter DO Dec 29, 2019 10:04
--- NOTE | 2019-12-29 10:10 | NUR ---
NURSE NOTES: Dr. Pichardo was notified regarding refusal of the lab by the patient. RN victoriano the lab and sent down to the lab. Will follow up the result. Will continue plan of care.
--- NOTE | 2019-12-29 10:20 | NUR ---
NURSE NOTES: New IV inserted on R hand 22G that is intact and patent. Will continue plan of care.
[2019-12-29 10:33] LABS: BASOPHILS % (AUTO) 0.9 % (0.0-2.0); EOSINOPHILS % (AUTO) 0.3 % (0.0-3.0); HEMATOCRIT 34.5 % (37.0-47.0); HEMOGLOBIN 10.4 G/DL (12.0-16.0); LYMPHOCYTES % (AUTO) 30.7 % (20.0-45.0); MEAN CORPUSCULAR VOLUME 105 FL (80-99); MONOCYTES % (AUTO) 8.5 % (1.0-10.0); NEUTROPHILS % (AUTO) 59.6 % (45.0-75.0); PLATELET COUNT 220 K/UL (150-450); RED BLOOD COUNT 3.27 M/UL (4.20-5.40); RED CELL DISTRIBUTION WIDTH 15.9 % (11.6-14.8); WHITE BLOOD COUNT 8.9 K/UL (4.8-10.8)
[2019-12-29 10:48] LABS: ALANINE AMINOTRANSFERASE 10 U/L (12-78); ALBUMIN 1.1 G/DL (3.4-5.0); ALBUMIN/GLOBULIN RATIO 0.2 (1.0-2.7); ALKALINE PHOSPHATASE 94 U/L (46-116); ANION GAP 7 mmol/L (5-15); ASPARTATE AMINO TRANSFERASE 22 U/L (15-37); BILIRUBIN,TOTAL 0.4 MG/DL (0.2-1.0); BLOOD UREA NITROGEN 10 mg/dL (7-18); CALCIUM 7.2 MG/DL (8.5-10.1); CARBON DIOXIDE 27 MMOL/L (21-32); CHLORIDE 118 MMOL/L (98-107); CREATININE 1.2 MG/DL (0.55-1.30); PHOSPHORUS 2.7 MG/DL (2.5-4.9); POTASSIUM 4.1 MMOL/L (3.5-5.1); SODIUM 152 MMOL/L (136-145)
--- NOTE | 2019-12-29 11:30 | NUR ---
NURSE NOTES: BS of 83 noted. D5W @ 100mL/hr running per order. Juice given to the patient. Lunch given to the patient. Will closely monitor the patient. Will continue plan of care.
[2019-12-29 12:00] VITALS: BP 125/81
--- NOTE | 2019-12-29 12:00 | Infectious Diseases Prog Note ---
Assessment/Plan Assessment/Plan A 1. E.coli sepsis 2. COVID19 pneumonia 3. fever improving 4. hypertension 5. renal failure 6. bipolar disorder 7. asthma 8. Pseudomonas UTI 9. Incarcerated ventral hernia s/p surgery 10. Perioperative respiratory failure P 1, continue Cefepime X 3 days 2. continue isolation Subjective ROS Limited/Unobtainable: Yes Constitutional: Denies: fever Respiratory: Reports: no symptoms Neurologic: Reports: other - on restraint Allergies: Coded Allergies: IBUPROFEN (Verified Allergy, Unknown, 12/20/19) Objective Last 24 Hour Vital Signs Date Time Temp Pulse Resp B/P (MAP) Pulse Ox O2 Delivery O2 Flow Rate FiO2 12/29/19 08:00 Room Air Room Air 12/29/19 08:00 101 12/29/19 07:30 97.2 87 18 109/70 (83) 99 12/29/19 04:00 Room Air Room Air 12/29/19 04:00 97.3 89 18 125/73 (90) 99 12/29/19 03:54 83 12/29/19 00:00 97.3 88 20 114/72 (86) 95 12/29/19 00:00 Room Air Room Air 12/28/19 23:39 133 12/28/19 20:00 97.7 91 22 105/71 (82) 94 12/28/19 20:00 Room Air Room Air 12/28/19 19:55 83 12/28/19 16:00 97.9 82 18 123/72 (89) 96 12/28/19 16:00 Nasal Cannula 2.0 Nasal Cannula 2.0 12/28/19 15:28 67 12/28/19 12:00 98.0 82 20 104/68 (80) 95 12/28/19 12:00 Nasal Cannula 2.0 Nasal Cannula 2.0 Height (Feet): 5 Height (Inches): 4.00 Weight (Pounds): 156 General Appearance: no acute distress HEENT: mucous membranes moist Respiratory/Chest: no respiratory distress Cardiovascular: tachycardia Abdomen: soft, non tender Neurologic/Psychiatric: alert, responsive Laboratory Tests Test 12/29/19 07:46 12/29/19 07:53 12/29/19 08:05 12/29/19 09:24 POC Whole Blood Glucose Pending Pending Pending Pending Test 12/29/19 10:20 White Blood Count 8.9 K/UL (4.8-10.8) Red Blood Count 3.27 M/UL (4.20-5.40) L Hemoglobin 10.4 G/DL (12.0-16.0) L Hematocrit 34.5 % (37.0-47.0) L Mean Corpuscular Volume 105 FL (80-99) H Mean Corpuscular Hemoglobin 31.6 PG (27.0-31.0) H Mean Corpuscular Hemoglobin Concent 30.0 G/DL (32.0-36.0) L Red Cell Distribution Width 15.9 % (11.6-14.8) H Platelet Count 220 K/UL (150-450) Mean Platelet Volume 6.2 FL (6.5-10.1) L Neutrophils (%) (Auto) 59.6 % (45.0-75.0) Lymphocytes (%) (Auto) 30.7 % (20.0-45.0) Monocytes (%) (Auto) 8.5 % (1.0-10.0) Eosinophils (%) (Auto) 0.3 % (0.0-3.0) Basophils (%) (Auto) 0.9 % (0.0-2.0) Sodium Level 152 MMOL/L (136-145) H Potassium Level 4.1 MMOL/L (3.5-5.1) Chloride Level 118 MMOL/L (98-107) H Carbon Dioxide Level 27 MMOL/L (21-32) Anion Gap 7 mmol/L (5-15) Blood Urea Nitrogen 10 mg/dL (7-18) Creatinine 1.2 MG/DL (0.55-1.30) Estimat Glomerular Filtration Rate 57.0 mL/min (>60) Glucose Level 111 MG/DL (74-106) H Calcium Level 7.2 MG/DL (8.5-10.1) L Phosphorus Level 2.7 MG/DL (2.5-4.9) Magnesium Level 1.8 MG/DL (1.8-2.4) Total Bilirubin 0.4 MG/DL (0.2-1.0) Aspartate Amino Transf (AST/SGOT) 22 U/L (15-37) Alanine Aminotransferase (ALT/SGPT) 10 U/L (12-78) L Alkaline Phosphatase 94 U/L (46-116) Total Protein 5.6 G/DL (6.4-8.2) L Albumin 1.1 G/DL (3.4-5.0) L Globulin 4.5 g/dL Albumin/Globulin Ratio 0.2 (1.0-2.7) L Current Medications Medications (Trade) Dose Ordered Sig/Venita Route PRN Reason Start Time Stop Time Status Last Admin Dose Admin Benztropine Mesylate (Cogentin) 2 mg BID ORAL 12/27/19 18:00 01/20/20 08:59 12/28/19 17:11 Cefepime HCl 1 gm/ Dextrose 55 ml @ 110 mls/hr Q24H IVPB 12/27/19 21:00 01/02/20 20:59 12/28/19 21:58 Dexamethasone Sodium Phosphate (Decadron 10mg/ ml Inj) 6 mg DAILY IV 12/28/19 09:00 01/01/20 08:59 12/29/19 09:17 Dextrose 1,000 ml @ 100 mls/hr Q10H IV 12/28/19 09:00 01/22/20 08:59 12/29/19 04:54 Dextrose (Dextrose 50%) 25 ml Q30M PRN IV Hypoglycemia 12/29/19 11:15 01/28/20 11:07 Dextrose (Dextrose 50%) 50 ml Q30M PRN IV hypoglycemia 12/29/19 11:15 03/28/20 11:14 Divalproex Sodium (Depakote ER) 500 mg DAILY ORAL 12/28/19 09:00 01/20/20 08:59 12/29/19 09:18 Docusate Sodium (Colace) 100 mg THREE TIMES A DAY ORAL 12/27/19 13:00 01/20/20 08:59 12/28/19 17:10 Haloperidol (Haldol) 5 mg TID ORAL 12/27/19 13:00 02/04/20 13:59 12/28/19 17:10 Heparin Sodium (Porcine) (Heparin 5000 units/ml) 5,000 units EVERY 12 HOURS SUBQ 12/27/19 21:00 02/09/20 08:59 12/29/19 08:52 Hydralazine HCl (Apresoline) 10 mg Q4H PRN IV Blood pressure over 160 systol 12/27/19 12:45 03/24/20 16:37 Lorazepam (Ativan 2mg/ml 1ml) 1 mg Q4H PRN IV For Anxiety 12/27/19 12:45 01/01/20 16:37 Lorazepam (Ativan) 1 mg Q6H PRN ORAL Agitation 12/27/19 13:00 01/01/20 12:59 Pantoprazole (Protonix) 40 mg EVERY 12 HOURS IVP 12/27/19 21:00 01/24/20 20:59 12/29/19 09:17 Ziprasidone (Geodon) 40 mg Q12HR ORAL 12/27/19 21:00 02/04/20 20:59 12/29/19 09:18 Ron Luis MD Dec 29, 2019 12:00
--- NOTE | 2019-12-29 12:55 | Hematology/Onc Progress Note ---
Assessment/Plan Assessment/Plan Assessment and recs # Thrombocytopenia - potential causes multifactorial, evaluate liver and viral etiologies to begin, also could be related to underlying medications patient has received. covid19++ also s/p ventral hernia repair --> Hep panel and HIV ordered --> US abd to evaluate for cirrhosis and hsm ordered --> Peripheral smear ordered to evaluate for blasts /schistocytes --> abx and other meds have been reviewed --> ok for ppx if plt >50k w/ either heparin or lovenox --> Transfuse if Plt < 20k and fever, or if Plt < 10k without fever --> plt 143-->115-->98->125->220 --> abx ctx # Anemia of iron deficiency, unspecified rule out gi bleed --> obtain a anemia panel, has been ordered --> will/have begun on iv iron and continue x 5 doses --> review if occult blood is + (review this to make sure +). Can consider gi eval --> hgb goal is >7, transfuse as needed --> trend CBC daily to make sure no major acute drop --> no evidence of hemolysis noted --> hgb 8-->8.5->10.4 # Coagulopathy likely due to covid19++ in adition to vit k depletion --> have jamilah Vargas, will give ffp and vitk --> recheck inr / ptt after surgery--> surgery completed # Acute febrile illness due to covid19+++ --> due to Suspected 2019-nCoV infection -> on abx --> steriods ahve been given # Atypical pneumonia # Hernia, ventral --> sp surgical repair and revision 12/24 # Hypernatremia # Hypoglycemia # E..coli sepsis # COVID 19 pneumonia # Hypertension # renal failure # Bipolar disorder # Asthma # Dvt ppx heparin sq The timing of this note does not necessarily reflect the time of the patient was seen. Greatly appreciate consultation. Subjective Constitutional: Denies: no symptoms, chills, fever, malaise, weakness, other HEENT: Denies: no symptoms, eye pain, blurred vision, tearing, double vision, ear pain, ear discharge, nose pain, nose congestion, throat pain, throat swelling, mouth pain, mouth swelling, other Respiratory: Denies: no symptoms, cough, shortness of breath, SOB with excertion, SOB at rest, sputum, wheezing, other Gastrointestinal/Abdominal: Denies: no symptoms, abdomen distended, abdominal pain, black stools, tarry stools, blood in stool, constipated, diarrhea, difficulty swallowing, nausea, poor appetite, poor fluid intake, rectal bleeding , vomiting, other Genitourinary: Denies: no symptoms, burning, discharge, frequency, flank pain, hematuria, incontinence, pain, urgency, other Neurologic/Psychiatric: Denies: no symptoms, anxiety, depressed, emotional problems, headache, numbness, paresthesia, pre-existing deficit, seizure, tingling, tremors, weakness, other Endocrine: Denies: no symptoms, excessive sweating, flushing, intolerance to cold, intolerance to heat, increased hunger, increased thirst, increased urine, unexplained weight gain, unexplained weight loss, other Allergies: Coded Allergies: IBUPROFEN (Verified Allergy, Unknown, 12/20/19) Subjective 12/24 abdominal mild pain with ttp, to see by surg for discussion re surgery today 12/25 intubated, no bleeding, meds reviewed, labs noted, dw ID 12/26 extubate,d no bleeding, meds noted, surgical site c/d/i, feeling better 12/28 on nc, improved, labs noted, hgb recovering Objective Objective Current Medications Medications (Trade) Dose Ordered Sig/Venita Route PRN Reason Start Time Stop Time Status Last Admin Dose Admin Benztropine Mesylate (Cogentin) 2 mg BID ORAL 12/27/19 18:00 01/20/20 08:59 12/28/19 17:11 Cefepime HCl 1 gm/ Dextrose 55 ml @ 110 mls/hr Q24H IVPB 12/27/19 21:00 01/02/20 20:59 12/28/19 21:58 Dexamethasone Sodium Phosphate (Decadron 10mg/ ml Inj) 6 mg DAILY IV 12/28/19 09:00 01/01/20 08:59 12/29/19 09:17 Dextrose 1,000 ml @ 100 mls/hr Q10H IV 12/28/19 09:00 01/22/20 08:59 12/29/19 04:54 Dextrose (Dextrose 50%) 25 ml Q30M PRN IV Hypoglycemia 12/29/19 11:15 01/28/20 11:07 Dextrose (Dextrose 50%) 50 ml Q30M PRN IV hypoglycemia 12/29/19 11:15 03/28/20 11:14 Divalproex Sodium (Depakote ER) 500 mg DAILY ORAL 12/28/19 09:00 01/20/20 08:59 12/29/19 09:18 Docusate Sodium (Colace) 100 mg THREE TIMES A DAY ORAL 12/27/19 13:00 01/20/20 08:59 12/28/19 17:10 Haloperidol (Haldol) 5 mg TID ORAL 12/27/19 13:00 02/04/20 13:59 12/28/19 17:10 Heparin Sodium (Porcine) (Heparin 5000 units/ml) 5,000 units EVERY 12 HOURS SUBQ 12/27/19 21:00 02/09/20 08:59 12/29/19 08:52 Hydralazine HCl (Apresoline) 10 mg Q4H PRN IV Blood pressure over 160 systol 12/27/19 12:45 03/24/20 16:37 Lorazepam (Ativan 2mg/ml 1ml) 1 mg Q4H PRN IV For Anxiety 12/27/19 12:45 01/01/20 16:37 Lorazepam (Ativan) 1 mg Q6H PRN ORAL Agitation 12/27/19 13:00 01/01/20 12:59 Pantoprazole (Protonix) 40 mg EVERY 12 HOURS IVP 12/27/19 21:00 01/24/20 20:59 12/29/19 09:17 Ziprasidone (Geodon) 40 mg Q12HR ORAL 12/27/19 21:00 02/04/20 20:59 12/29/19 09:18 Last 24 Hour Vital Signs Date Time Temp Pulse Resp B/P (MAP) Pulse Ox O2 Delivery O2 Flow Rate FiO2 12/29/19 12:00 85 12/29/19 12:00 97.0 90 18 125/81 (96) 99 12/29/19 08:00 Room Air Room Air 12/29/19 08:00 101 12/29/19 07:30 97.2 87 18 109/70 (83) 99 12/29/19 04:00 Room Air Room Air 7/12/20 04:00 97.3 89 18 125/73 (90) 99 12/29/19 03:54 83 12/29/19 00:00 97.3 88 20 114/72 (86) 95 12/29/19 00:00 Room Air Room Air 12/28/19 23:39 133 12/28/19 20:00 97.7 91 22 105/71 (82) 94 12/28/19 20:00 Room Air Room Air 12/28/19 19:55 83 12/28/19 16:00 97.9 82 18 123/72 (89) 96 12/28/19 16:00 Nasal Cannula 2.0 Nasal Cannula 2.0 12/28/19 15:28 67 12/28/19 12:00 98.0 82 20 104/68 (80) 95 12/28/19 12:00 Nasal Cannula 2.0 Nasal Cannula 2.0 12/28/19 11:23 50 12/28/19 08:00 98.2 87 20 135/46 (75) 95 12/28/19 07:47 84 12/28/19 07:45 Nasal Cannula 2.0 Nasal Cannula 2.0 12/28/19 04:00 Nasal Cannula 2.0 Nasal Cannula 2.0 12/28/19 04:00 97.2 79 20 105/67 (80) 100 12/28/19 03:35 69 12/28/19 00:00 97.0 65 20 113/62 (79) 100 12/28/19 00:00 Nasal Cannula 2.0 Nasal Cannula 2.0 12/28/19 00:00 72 12/27/19 20:00 Nasal Cannula 2.0 Nasal Cannula 2.0 12/27/19 20:00 71 12/27/19 20:00 97.0 82 20 106/67 (80) 100 12/27/19 16:00 91 12/27/19 16:00 Nasal Cannula 2.0 Nasal Cannula 2.0 12/27/19 16:00 97.1 85 20 108/66 (80) 95 12/27/19 13:38 103 Intake and Output 12/28/19 12/29/19 19:00 07:00 Intake Total 2700 ml 1100 ml Output Total 900 ml 600 ml Balance 1800 ml 500 ml Intake Oral 1800 ml IV Total 900 ml 1100 ml Output Urine Total 900 ml 600 ml # Bowel Movements 2 Labs Test 12/27/19 04:05 12/27/19 09:24 12/28/19 04:00 12/28/19 06:00 White Blood Count 7.4 K/UL (4.8-10.8) 8.2 K/UL (4.8-10.8) Red Blood Count 2.57 M/UL (4.20-5.40) 2.97 M/UL (4.20-5.40) Hemoglobin 8.1 G/DL (12.0-16.0) 9.4 G/DL (12.0-16.0) Hematocrit 26.8 % (37.0-47.0) 31.8 % (37.0-47.0) Mean Corpuscular Volume 104 FL (80-99) 107 FL (80-99) Mean Corpuscular Hemoglobin 31.5 PG (27.0-31.0) 31.7 PG (27.0-31.0) Mean Corpuscular Hemoglobin Concent 30.3 G/DL (32.0-36.0) 29.6 G/DL (32.0-36.0) Red Cell Distribution Width 16.7 % (11.6-14.8) 16.8 % (11.6-14.8) Platelet Count 125 K/UL (150-450) 148 K/UL (150-450) Mean Platelet Volume 6.6 FL (6.5-10.1) 6.8 FL (6.5-10.1) Neutrophils (%) (Auto) 73.3 % (45.0-75.0) 63.9 % (45.0-75.0) Lymphocytes (%) (Auto) 20.5 % (20.0-45.0) 25.7 % (20.0-45.0) Monocytes (%) (Auto) 5.4 % (1.0-10.0) 9.4 % (1.0-10.0) Eosinophils (%) (Auto) 0.2 % (0.0-3.0) 0.4 % (0.0-3.0) Basophils (%) (Auto) 0.6 % (0.0-2.0) 0.6 % (0.0-2.0) Sodium Level 169 MMOL/L (136-145) 160 MMOL/L (136-145) Potassium Level 3.3 MMOL/L (3.5-5.1) 3.6 MMOL/L (3.5-5.1) Chloride Level 132 MMOL/L (98-107) 125 MMOL/L (98-107) Carbon Dioxide Level 31 MMOL/L (21-32) 28 MMOL/L (21-32) Anion Gap 5 mmol/L (5-15) 7 mmol/L (5-15) Blood Urea Nitrogen 10 mg/dL (7-18) 10 mg/dL (7-18) Creatinine 1.5 MG/DL (0.55-1.30) 1.5 MG/DL (0.55-1.30) Estimat Glomerular Filtration Rate 44.1 mL/min (>60) 44.1 mL/min (>60) Glucose Level 78 MG/DL (74-106) 65 MG/DL (74-106) Calcium Level 7.0 MG/DL (8.5-10.1) 7.1 MG/DL (8.5-10.1) Phosphorus Level 3.4 MG/DL (2.5-4.9) 3.2 MG/DL (2.5-4.9) Magnesium Level 1.8 MG/DL (1.8-2.4) 1.9 MG/DL (1.8-2.4) Total Bilirubin 0.3 MG/DL (0.2-1.0) 0.3 MG/DL (0.2-1.0) Direct Bilirubin 0.1 MG/DL (0.0-0.3) Aspartate Amino Transf (AST/SGOT) 26 U/L (15-37) 25 U/L (15-37) Alanine Aminotransferase (ALT/SGPT) 10 U/L (12-78) 13 U/L (12-78) Alkaline Phosphatase 88 U/L (46-116) 87 U/L (46-116) Total Protein 4.9 G/DL (6.4-8.2) 5.4 G/DL (6.4-8.2) Albumin 1.0 G/DL (3.4-5.0) 1.1 G/DL (3.4-5.0) Urine Random Sodium 25 mmol/L (20-110) 24 mmol/L (20-110) Globulin 4.3 g/dL Albumin/Globulin Ratio 0.3 (1.0-2.7) Test 12/29/19 07:46 12/29/19 07:53 12/29/19 08:05 12/29/19 09:24 Test 12/29/19 10:20 White Blood Count 8.9 K/UL (4.8-10.8) Red Blood Count 3.27 M/UL (4.20-5.40) Hemoglobin 10.4 G/DL (12.0-16.0) Hematocrit 34.5 % (37.0-47.0) Mean Corpuscular Volume 105 FL (80-99) Mean Corpuscular Hemoglobin 31.6 PG (27.0-31.0) Mean Corpuscular Hemoglobin Concent 30.0 G/DL (32.0-36.0) Red Cell Distribution Width 15.9 % (11.6-14.8) Platelet Count 220 K/UL (150-450) Mean Platelet Volume 6.2 FL (6.5-10.1) Neutrophils (%) (Auto) 59.6 % (45.0-75.0) Lymphocytes (%) (Auto) 30.7 % (20.0-45.0) Monocytes (%) (Auto) 8.5 % (1.0-10.0) Eosinophils (%) (Auto) 0.3 % (0.0-3.0) Basophils (%) (Auto) 0.9 % (0.0-2.0) Sodium Level 152 MMOL/L (136-145) Potassium Level 4.1 MMOL/L (3.5-5.1) Chloride Level 118 MMOL/L (98-107) Carbon Dioxide Level 27 MMOL/L (21-32) Anion Gap 7 mmol/L (5-15) Blood Urea Nitrogen 10 mg/dL (7-18) Creatinine 1.2 MG/DL (0.55-1.30) Estimat Glomerular Filtration Rate 57.0 mL/min (>60) Glucose Level 111 MG/DL (74-106) Calcium Level 7.2 MG/DL (8.5-10.1) Phosphorus Level 2.7 MG/DL (2.5-4.9) Magnesium Level 1.8 MG/DL (1.8-2.4) Total Bilirubin 0.4 MG/DL (0.2-1.0) Aspartate Amino Transf (AST/SGOT) 22 U/L (15-37) Alanine Aminotransferase (ALT/SGPT) 10 U/L (12-78) Alkaline Phosphatase 94 U/L (46-116) Total Protein 5.6 G/DL (6.4-8.2) Albumin 1.1 G/DL (3.4-5.0) Globulin 4.5 g/dL Albumin/Globulin Ratio 0.2 (1.0-2.7) Height (Feet): 5 Height (Inches): 4.00 Weight (Pounds): 156 Objective Physical Exam: Vitals: reviewed General: NAD HEENT: nc, at Neck: supple Chest: clear breath sounds bilaterally+ nc Cardiovascular: RRR, no s3, s4 Abdomen: soft, nontender, ttp in upper quands, abd surgical scar c/d/i Extremities: no cce, normal range of motion Neuro: alert and oriented Charanjit Sandoval MD Dec 29, 2019 12:55
--- NOTE | 2019-12-29 13:00 | NUR ---
NURSE NOTES: The patient is resting on the bed without acute distress or shortness of breath. Still combative, agitated, and confused. Diarrhea noted. Will continue plan of care.
--- NOTE | 2019-12-29 13:37 | Nephrology Progress Note ---
Assessment/Plan Problem List: (1) Renal failure Assessment: Acute on chronic (2) Suspected 2019-nCoV infection Assessment: Acute febrile illness (3) Hypernatremia Assessment: Improving (4) Hypoglycemia Assessment: Improving Assessment Renal failure, most likely chronic, with superimposed acute renal failure. Acute febrile illness, suspected COVID-19 infection. Hypernatremia, likely due to free water deficit. Hypoglycemia Severe hypoalbuminemia Atypical pneumonia Anemia History of psych disease Plan December 28: Labs reviewed. Serum sodium going down. On nasal cannula. Continue per consultants. December 27: Now in [facility]. Postop day 3. On nasal cannula. Labs reviewed. Hypernatremia improving. Continue D5W however will cut down the rate. Continue to monitor electrolytes. Continue per consultants. December 26: Remains in ICU. Postop day 2. Is now extubated. Lab reviewed. Hypernatremia persists. Continue D5W. Discussed with RN. December 25: Patient in ICU. Had surgery yesterday December 24. Patient remains intubated, due for extubation. Lab reviewed. Discussed with RN. Continue D5W for hypernatremia. Patient overall stable from renal standpoint of view. December 24: Renal parameters reviewed. Creatinine within normal limit. Serum sodium remains high. Patient due for hernia surgery today. Continue D5W IV fluid. December 23: Renal parameters reviewed. Creatinine down to 1.4. Serum sodium higher. Patient is being investigated for incarcerated ventral hernia by general surgery. Continue current IV fluid and monitor renal parameters. December 22: Will recheck serum potassium. If nonhemolyzed value still elevated will treat hyperkalemia. Discussed with DOT Leary. Continue the rest of the medication. Stop blood pressure medication due to low blood pressure, adjust the dose when the blood pressure improves PRN IV hydralazine for blood pressure spike D5W IV hydration Protonix p.o. Albumin IV bolus Monitor renal parameters Continue per consultants Saha catheter, urine studies Subjective ROS Limited/Unobtainable: No Constitutional: Reports: malaise, weakness Objective Objective Last 24 Hour Vital Signs Date Time Temp Pulse Resp B/P (MAP) Pulse Ox O2 Delivery O2 Flow Rate FiO2 12/29/19 12:00 Room Air Room Air 12/29/19 12:00 85 12/29/19 12:00 97.0 90 18 125/81 (96) 99 12/29/19 08:00 Room Air Room Air 12/29/19 08:00 101 12/29/19 07:30 97.2 87 18 109/70 (83) 99 12/29/19 04:00 Room Air Room Air 12/29/19 04:00 97.3 89 18 125/73 (90) 99 12/29/19 03:54 83 12/29/19 00:00 97.3 88 20 114/72 (86) 95 12/29/19 00:00 Room Air Room Air 12/28/19 23:39 133 12/28/19 20:00 97.7 91 22 105/71 (82) 94 12/28/19 20:00 Room Air Room Air 12/28/19 19:55 83 12/28/19 16:00 97.9 82 18 123/72 (89) 96 12/28/19 16:00 Nasal Cannula 2.0 Nasal Cannula 2.0 12/28/19 15:28 67 Intake and Output 12/28/19 12/29/19 19:00 07:00 Intake Total 2700 ml 1100 ml Output Total 900 ml 600 ml Balance 1800 ml 500 ml Intake Oral 1800 ml IV Total 900 ml 1100 ml Output Urine Total 900 ml 600 ml # Bowel Movements 2 Laboratory Tests 12/29/19 07:46: POC Whole Blood Glucose [Pending] 12/29/19 07:53: POC Whole Blood Glucose [Pending] 12/29/19 08:05: POC Whole Blood Glucose [Pending] 12/29/19 09:24: POC Whole Blood Glucose [Pending] 12/29/19 10:20: White Blood Count 8.9, Red Blood Count 3.27L, Hemoglobin 10.4L, Hematocrit 34.5L , Mean Corpuscular Volume 105H, Mean Corpuscular Hemoglobin 31.6H, Mean Corpuscular Hemoglobin Concent 30.0L, Red Cell Distribution Width 15.9H, Platelet Count 220, Mean Platelet Volume 6.2L, Neutrophils (%) (Auto) 59.6, Lymphocytes (%) (Auto) 30.7, Monocytes (%) (Auto) 8.5, Eosinophils (%) (Auto) 0.3, Basophils (%) (Auto) 0.9, Sodium Level 152H, Potassium Level 4.1, Chloride Level 118H, Carbon Dioxide Level 27, Anion Gap 7, Blood Urea Nitrogen 10, Creatinine 1.2, Estimat Glomerular Filtration Rate 57.0, Glucose Level 111H, Calcium Level 7.2L, Phosphorus Level 2.7, Magnesium Level 1.8, Total Bilirubin 0.4, Aspartate Amino Transf (AST/SGOT) 22, Alanine Aminotransferase (ALT/SGPT) 10L, Alkaline Phosphatase 94, Total Protein 5.6L, Albumin 1.1L, Globulin 4.5, Albumin/Globulin Ratio 0.2L 12/29/19 12:49: POC Whole Blood Glucose [Pending] Height (Feet): 5 Height (Inches): 4.00 Weight (Pounds): 156 General Appearance: no apparent distress, lethargic EENT: other - On nasal cannula Cardiovascular: tachycardia Respiratory/Chest: decreased breath sounds Abdomen: distended Brian Pichardo MD Dec 29, 2019 13:37
--- NOTE | 2019-12-29 15:00 | NUR ---
NURSE NOTES: The patient is resting on the bed but being agitated, confused, and combative. Will closely monitor the patient. Will continue plan of care.
[2019-12-29 15:30] VITALS: BP 101/62
--- NOTE | 2019-12-29 16:29 | Progress Note ---
DATE: 12/29/2019 SUBJECTIVE: This is a 54-year-old female patient with suspected COVID-19 and hernia infection. She has got some confusion, some disorganized thought process. She has got decline in cognition below her baseline that is why she does require inpatient treatment at this time. MENTAL STATUS EXAMINATION: This is a 54-year-old female patient. Appearance is disheveled. Attitude, irritable and agitated. Affect, guarded and restricted. Intellect poor. Mood, depressed and anxious. Motor activity, psychomotor agitation. Attention span is poor. Orientation x2. Speech is low volume, slurred. Thought process, disorganized and illogical. Insight and judgment are poor. DIAGNOSIS: Paranoid schizophrenia with acute exacerbation. PLAN: Treat her with Geodon 40 mg twice a day, Ativan 1 every 6 hours p.r.n. anxiety and agitation, Depakote 500 mg a day, and Haldol 5 mg three times a day. Twenty minutes of cognitive behavioral therapy will help identify automatic negative thoughts, help convert negative thoughts to more positive thoughts to reduce depression, anxiety, and mood lability. Chart reviewed. Discussed with staff. Seen and assessed in the room. Flip Burgos M.D. DR: Sveta JOB#: [id number] CC:
--- NOTE | 2019-12-29 16:30 | NUR ---
NURSE NOTES: BS of 180 noted. Will closely monitor the patient. Will continue plan of care.
--- NOTE | 2019-12-29 18:00 | NUR ---
NURSE NOTES: The patient refused to take PO medication. Bed bath given to the patient. Tolerated well. Will continue plan of care.
--- NOTE | 2019-12-29 19:20 | NUR ---
HAND-OFF: Report given to DOT Olivier and DOT Casper. The patient is stable at this time. Endorsed plan of care.
--- NOTE | 2019-12-29 19:25 | NUR ---
NURSE NOTES: Received report from DOT Leary. Upon assessment, patient is responsive to verbal and tactile stimuli. Patient is observed to be confused and disoriented with possible hallucinations. Patient is seen speaking to herself. Patient affect is uncooperative, impulsive, and combative towards staff. Vital signs WNL. Patient is on 2L N/C with no respiratory distress noted at 98% O2 saturation. Patient verbalizes being hungry and was given a sandwich and orange juice shortly after. Moderate yellow and pasty bowel movement noted. Purewick noted and draining well to suction. Bed in lowest and locked position. HOB elevated at 30 degrees. Bed alarm on and side rails up x3. Call light within reach. Will continue to monitor patient.
--- NOTE | 2019-12-29 19:45 | NUR ---
NURSE NOTES: Pt. observed to be pulling on IV's, medical devices, and combative towards staff. Reoriented with TV, snacks, and dim lights. Pt. continues to pull on medical devices. Reported to Dr. Burgos and restraints were ordered. Bilateral radial pulses palpated and skin intact. Will continue monitoring throughout shift.
[2019-12-29 20:00] VITALS: BP 106/75
[2019-12-29] MEDS: Cefepime HCl 1 GM in D5W 55 ML IVPB SCH (20:41)
--- NOTE | 2019-12-29 21:00 | NUR ---
NURSE NOTES: Pt. cooperative and assists with cleaning herself during bed bath. Patient able to swallow pills whole and requested snack during shift. Offered juice and tuna sandwich. Temporarily removed restraints while feeding herself and observed she is less agitated. Will reassess if patient is compliant and combative. Patient refusing blood sugar check - will come back and check later. No signs of distress noted. Will continue monitoring.
--- NOTE | 2019-12-29 22:00 | NUR ---
NURSE NOTES: Patient blood glucose increased from 49 mg/dl to 129 mg/dl after receiving 118 mL and snacks. Patient asymptomatic. Will continue monitoring.
[2019-12-30] VITALS: BP 98/68
[2019-12-30 04:00] VITALS: BP 101/66
--- NOTE | 2019-12-30 06:27 | NUR ---
NURSE NOTES: Pt blood sugar was 13 asymptomatic. 354mL of apple juice given. Pt BS was 27 30min later. D50 administered per protocol. Pt is still asymptomatic. Will check BS in 15min. Charge nurse notified.
--- NOTE | 2019-12-30 06:37 | General Progress Note ---
Assessment/Plan Problem List: (1) Suspected 2019-nCoV infection ICD Codes: Z20.828 - Contact with and (suspected) exposure to other viral communicable diseases SNOMED: 649713017 (2) Hypoglycemia ICD Codes: E16.2 - Hypoglycemia, unspecified SNOMED: 143793818 (3) Hypernatremia ICD Codes: E87.0 - Hyperosmolality and hypernatremia SNOMED: 538763903 (4) Atypical pneumonia ICD Codes: J18.9 - Pneumonia, unspecified organism SNOMED: 229515412 (5) Acute febrile illness ICD Codes: R50.9 - Fever, unspecified SNOMED: 589491136 Status: unchanged Assessment/Plan: start D10 at 75 cc/hour continue glucose monitoring hypoglycemia protocol in order Subjective ROS Limited/Unobtainable: Yes Allergies: Coded Allergies: IBUPROFEN (Verified Allergy, Unknown, 12/20/19) Subjective events noted severe hypoglycemia despite being on Dexamethasone Item Value Date Time Bedside Blood Glucose 27 mg/dl L 12/30/19 0621 Bedside Blood Glucose 129 mg/dl H 12/29/19 2100 Bedside Blood Glucose 180 mg/dl H 12/29/19 1550 Bedside Blood Glucose 83 mg/dl 12/29/19 1130 Bedside Blood Glucose 19 mg/dl L 12/29/19 0753 Objective Last 24 Hour Vital Signs Date Time Temp Pulse Resp B/P (MAP) Pulse Ox O2 Delivery O2 Flow Rate FiO2 12/30/19 04:00 97.0 85 18 101/66 (78) 98 12/30/19 04:00 Room Air Room Air 12/30/19 03:30 88 12/30/19 00:00 102 12/30/19 00:00 Room Air Room Air 12/30/19 00:00 97.0 88 18 98/68 (78) 99 12/29/19 20:00 Room Air Room Air 12/29/19 20:00 97.2 84 18 106/75 (85) 95 12/29/19 19:43 97 12/29/19 16:00 Room Air Room Air 12/29/19 16:00 97 12/29/19 15:30 97.0 84 18 101/62 (75) 100 12/29/19 12:00 Room Air Room Air 12/29/19 12:00 85 12/29/19 12:00 97.0 90 18 125/81 (96) 99 12/29/19 08:00 Room Air Room Air 12/29/19 08:00 101 12/29/19 07:30 97.2 87 18 109/70 (83) 99 Intake and Output 12/29/19 12/30/19 19:00 07:00 Intake Total 1100 ml 1120.0 ml Output Total 2000 ml Balance -900 ml 1120.0 ml Intake Oral 1000 ml IV Total 100 ml 1120.0 ml Output Urine Total 2000 ml # Bowel Movements 3 3 Laboratory Tests 12/29/19 07:46: POC Whole Blood Glucose [Pending] 12/29/19 07:53: POC Whole Blood Glucose [Pending] 12/29/19 08:05: POC Whole Blood Glucose [Pending] 12/29/19 09:24: POC Whole Blood Glucose [Pending] 12/29/19 10:20: White Blood Count 8.9, Red Blood Count 3.27L, Hemoglobin 10.4L, Hematocrit 34.5L , Mean Corpuscular Volume 105H, Mean Corpuscular Hemoglobin 31.6H, Mean Corpuscular Hemoglobin Concent 30.0L, Red Cell Distribution Width 15.9H, Platelet Count 220, Mean Platelet Volume 6.2L, Neutrophils (%) (Auto) 59.6, Lymphocytes (%) (Auto) 30.7, Monocytes (%) (Auto) 8.5, Eosinophils (%) (Auto) 0.3, Basophils (%) (Auto) 0.9, Sodium Level 152H, Potassium Level 4.1, Chloride Level 118H, Carbon Dioxide Level 27, Anion Gap 7, Blood Urea Nitrogen 10, Creatinine 1.2, Estimat Glomerular Filtration Rate 57.0, Glucose Level 111H, Calcium Level 7.2L, Phosphorus Level 2.7, Magnesium Level 1.8, Total Bilirubin 0.4, Aspartate Amino Transf (AST/SGOT) 22, Alanine Aminotransferase (ALT/SGPT) 10L, Alkaline Phosphatase 94, Total Protein 5.6L, Albumin 1.1L, Globulin 4.5, Albumin/Globulin Ratio 0.2L 12/29/19 12:49: POC Whole Blood Glucose [Pending] 12/29/19 15:53: POC Whole Blood Glucose [Pending] 12/29/19 21:45: POC Whole Blood Glucose 43L 12/29/19 23:02: POC Whole Blood Glucose 129H 12/30/19 04:31: White Blood Count [Pending], Red Blood Count [Pending], Hemoglobin [Pending], Hematocrit [Pending], Mean Corpuscular Volume [Pending], Mean Corpuscular Hemoglobin [Pending], Mean Corpuscular Hemoglobin Concent [Pending], Red Cell Distribution Width [Pending], Platelet Count [Pending], Mean Platelet Volume [ Pending], Neutrophils (%) (Auto) [Pending], Lymphocytes (%) (Auto) [Pending], Monocytes (%) (Auto) [Pending], Eosinophils (%) (Auto) [Pending], Basophils (%) (Auto) [Pending], Sodium Level [Pending], Potassium Level [Pending], Chloride Level [Pending], Carbon Dioxide Level [Pending], Blood Urea Nitrogen [Pending], Creatinine [Pending], Estimat Glomerular Filtration Rate [Pending], Glucose Level [Pending], Calcium Level [Pending] 12/30/19 06:04: POC Whole Blood Glucose 31*L 12/30/19 06:05: POC Whole Blood Glucose 27*L Height (Feet): 5 Height (Inches): 4.00 Weight (Pounds): 158 Objective Current Medications Medications (Trade) Dose Ordered Sig/Venita Route PRN Reason Start Time Stop Time Status Last Admin Dose Admin Benztropine Mesylate (Cogentin) 2 mg BID ORAL 12/27/19 18:00 01/20/20 08:59 12/28/19 17:11 Cefepime HCl 1 gm/ Dextrose 55 ml @ 110 mls/hr Q24H IVPB 12/27/19 21:00 01/02/20 20:59 12/29/19 20:41 Dexamethasone Sodium Phosphate (Decadron 10mg/ ml Inj) 6 mg DAILY IV 12/28/19 09:00 01/01/20 08:59 12/29/19 09:17 Dextrose 1,000 ml @ 100 mls/hr Q10H IV 12/28/19 09:00 01/22/20 08:59 12/30/19 01:21 Dextrose (Dextrose 50%) 25 ml Q30M PRN IV Hypoglycemia 12/29/19 11:15 01/28/20 11:07 Dextrose (Dextrose 50%) 50 ml Q30M PRN IV hypoglycemia 12/29/19 11:15 03/28/20 11:14 12/30/19 06:21 Divalproex Sodium (Depakote ER) 500 mg DAILY ORAL 12/28/19 09:00 01/20/20 08:59 12/29/19 09:18 Docusate Sodium (Colace) 100 mg THREE TIMES A DAY ORAL 12/27/19 13:00 01/20/20 08:59 12/28/19 17:10 Haloperidol (Haldol) 5 mg TID ORAL 12/27/19 13:00 02/04/20 13:59 12/28/19 17:10 Heparin Sodium (Porcine) (Heparin 5000 units/ml) 5,000 units EVERY 12 HOURS SUBQ 12/27/19 21:00 02/09/20 08:59 12/29/19 20:51 Hydralazine HCl (Apresoline) 10 mg Q4H PRN IV Blood pressure over 160 systol 12/27/19 12:45 03/24/20 16:37 Lorazepam (Ativan 2mg/ml 1ml) 1 mg Q4H PRN IV For Anxiety 12/27/19 12:45 01/01/20 16:37 12/29/19 22:55 Lorazepam (Ativan) 1 mg Q6H PRN ORAL Agitation 12/27/19 13:00 01/01/20 12:59 Pantoprazole (Protonix) 40 mg EVERY 12 HOURS IVP 12/27/19 21:00 01/24/20 20:59 12/29/19 20:45 Ziprasidone (Geodon) 40 mg Q12HR ORAL 12/27/19 21:00 02/04/20 20:59 12/29/19 20:42 Subhash Yang MD Dec 30, 2019 06:37
--- NOTE | 2019-12-30 06:48 | NUR ---
NURSE NOTES: After D50 was given, rechecked blood sugar. Result showed 21 mg/dl. Continued hypoglycemia protocol as ordered and notified Dr. Yang. Orders to begin D10 at 75 cc. Patient asymptomatic and responsive to verbal/tactile stimuli. Restraints temporarily removed. Will carry out orders and continue monitoring patient.
[2019-12-30] MEDS: Dextrose 10% 1,000 ML IV SCH ×2 (06:57→20:47)
[2019-12-30 07:00] LABS: BASOPHILS % (AUTO) 1.3 % (0.0-2.0); EOSINOPHILS % (AUTO) 0.2 % (0.0-3.0); HEMATOCRIT 33.6 % (37.0-47.0); MEAN CORPUSCULAR VOLUME 106 FL (80-99); MONOCYTES % (AUTO) 10.3 % (1.0-10.0); NEUTROPHILS % (AUTO) 45.1 % (45.0-75.0); PLATELET COUNT 191 K/UL (150-450); RED BLOOD COUNT 3.16 M/UL (4.20-5.40); RED CELL DISTRIBUTION WIDTH 15.7 % (11.6-14.8); WHITE BLOOD COUNT 9.9 K/UL (4.8-10.8)
[2019-12-30 07:04] LABS: ANION GAP 8 mmol/L (5-15); BLOOD UREA NITROGEN 8 mg/dL (7-18); CARBON DIOXIDE 25 MMOL/L (21-32); CHLORIDE 117 MMOL/L (98-107); CREATININE 1.2 MG/DL (0.55-1.30); SODIUM 150 MMOL/L (136-145)
--- NOTE | 2019-12-30 07:26 | NUR ---
NURSE NOTES: Received report from DOT Olivier. Patient is resting in bed, in stable condition. No s/sx of SOB, pt on 2 L NC, breathing is even and unlabored. Per night nurse patient noted with low glucose level of 13 mg/dL per [place], patient was given 300 ml apple juice and PRN IV D50. Dr. Yang was notified, Dr. Yang began order fo D10W at 75 ml/hr. Patient denies any presence of pain or discomfort at this time, patient noted confused and placed on bilateral soft wrist restraints for pulling out medical devices. Bed is in lowest position, brakes engaged. Call light is kept within easy reach. Will continue to monitor patient.
--- NOTE | 2019-12-30 07:30 | NUR ---
HAND-OFF: Report given to [employer]. Restraints reapplied as patient is disoriented and continues to tug on medical devices. Endorsed plan of care.
[2019-12-30 08:00] VITALS: BP 105/71
[2019-12-30] MEDS: Docusate 100mg cap ORAL SCH ×3 (08:15→17:01)
[2019-12-30] MEDS: Benztropine 1mg tab ORAL SCH ×2 (08:16→17:01)
[2019-12-30] MEDS: Pantoprazole Inj IVP SCH ×2 (08:23→20:48)
[2019-12-30] MEDS: dexAMETHasone 10mg/ml Inj IV SCH (08:23)
[2019-12-30] MEDS: Ziprasidone 20mg cap ORAL SCH ×2 (08:23→20:49)
[2019-12-30] MEDS: Depakote ER 500mg tab ORAL SCH (08:23)
[2019-12-30] MEDS: Heparin 5000 units/ml inj SUBQ SCH ×2 (08:29→20:49)
--- NOTE | 2019-12-30 09:10 | Nephrology Progress Note ---
Assessment/Plan Problem List: (1) Renal failure Assessment: Acute on chronic (2) Suspected 2019-nCoV infection Assessment: Acute febrile illness (3) Hypernatremia Assessment: Improving (4) Hypoglycemia Assessment: Improving Assessment Renal failure, most likely chronic, with superimposed acute renal failure. Acute febrile illness, suspected COVID-19 infection. Hypernatremia, likely due to free water deficit. Hypoglycemia Severe hypoalbuminemia Atypical pneumonia Anemia History of psych disease Plan December 29: Lab reviewed. Periodic hypoglycemia. On nasal cannula. Stable from renal standpoint of view. Hypoglycemia protocol in place. Per order. December 28: Labs reviewed. Serum sodium going down. On nasal cannula. Continue per consultants. December 27: Now in [facility]. Postop day 3. On nasal cannula. Labs reviewed. Hypernatremia improving. Continue D5W however will cut down the rate. Continue to monitor electrolytes. Continue per consultants. December 26: Remains in ICU. Postop day 2. Is now extubated. Lab reviewed. Hypernatremia persists. Continue D5W. Discussed with RN. December 25: Patient in ICU. Had surgery yesterday December 24. Patient remains intubated, due for extubation. Lab reviewed. Discussed with RN. Continue D5W for hypernatremia. Patient overall stable from renal standpoint of view. December 24: Renal parameters reviewed. Creatinine within normal limit. Serum sodium remains high. Patient due for hernia surgery today. Continue D5W IV fluid. December 23: Renal parameters reviewed. Creatinine down to 1.4. Serum sodium higher. Patient is being investigated for incarcerated ventral hernia by general surgery. Continue current IV fluid and monitor renal parameters. December 22: Will recheck serum potassium. If nonhemolyzed value still elevated will treat hyperkalemia. Discussed with DOT Leary. Continue the rest of the medication. Stop blood pressure medication due to low blood pressure, adjust the dose when the blood pressure improves PRN IV hydralazine for blood pressure spike D5W IV hydration Protonix p.o. Albumin IV bolus Monitor renal parameters Continue per consultants Saha catheter, urine studies Subjective ROS Limited/Unobtainable: Yes Objective Objective Last 24 Hour Vital Signs Date Time Temp Pulse Resp B/P (MAP) Pulse Ox O2 Delivery O2 Flow Rate FiO2 12/30/19 08:00 96.6 114 20 105/71 (82) 100 12/30/19 08:00 Room Air 2.0 Nasal Cannula 12/30/19 04:00 97.0 85 18 101/66 (78) 98 12/30/19 04:00 Room Air 2.0 Nasal Cannula 12/30/19 03:30 88 12/30/19 00:00 102 12/30/19 00:00 Nasal Cannula 2.0 Room Air 12/30/19 00:00 97.0 88 18 98/68 (78) 99 12/29/19 20:00 Nasal Cannula 2.0 Room Air 12/29/19 20:00 97.2 84 18 106/75 (85) 95 12/29/19 19:43 97 12/29/19 16:00 Room Air Room Air 12/29/19 16:00 97 12/29/19 15:30 97.0 84 18 101/62 (75) 100 12/29/19 12:00 Room Air Room Air 12/29/19 12:00 85 12/29/19 12:00 97.0 90 18 125/81 (96) 99 Intake and Output 12/29/19 12/30/19 19:00 07:00 Intake Total 1100 ml 1623.75 ml Output Total 2000 ml 300 ml Balance -900 ml 1323.75 ml Intake Oral 1000 ml 500 ml IV Total 100 ml 1123.75 ml Output Urine Total 2000 ml 300 ml # Voids 1 # Bowel Movements 3 4 Laboratory Tests 12/29/19 09:24: POC Whole Blood Glucose [Pending] 12/29/19 10:20: White Blood Count 8.9, Red Blood Count 3.27L, Hemoglobin 10.4L, Hematocrit 34.5L , Mean Corpuscular Volume 105H, Mean Corpuscular Hemoglobin 31.6H, Mean Corpuscular Hemoglobin Concent 30.0L, Red Cell Distribution Width 15.9H, Platelet Count 220, Mean Platelet Volume 6.2L, Neutrophils (%) (Auto) 59.6, Lymphocytes (%) (Auto) 30.7, Monocytes (%) (Auto) 8.5, Eosinophils (%) (Auto) 0.3, Basophils (%) (Auto) 0.9, Sodium Level 152H, Potassium Level 4.1, Chloride Level 118H, Carbon Dioxide Level 27, Anion Gap 7, Blood Urea Nitrogen 10, Creatinine 1.2, Estimat Glomerular Filtration Rate 57.0, Glucose Level 111H, Calcium Level 7.2L, Phosphorus Level 2.7, Magnesium Level 1.8, Total Bilirubin 0.4, Aspartate Amino Transf (AST/SGOT) 22, Alanine Aminotransferase (ALT/SGPT) 10L, Alkaline Phosphatase 94, Total Protein 5.6L, Albumin 1.1L, Globulin 4.5, Albumin/Globulin Ratio 0.2L 12/29/19 12:49: POC Whole Blood Glucose [Pending] 12/29/19 15:53: POC Whole Blood Glucose [Pending] 12/29/19 21:45: POC Whole Blood Glucose 43L 12/29/19 23:02: POC Whole Blood Glucose 129H 12/30/19 04:31: White Blood Count 9.9, Red Blood Count 3.16L, Hemoglobin 10.0L, Hematocrit 33.6L , Mean Corpuscular Volume 106H, Mean Corpuscular Hemoglobin 31.6H, Mean Corpuscular Hemoglobin Concent 29.8L, Red Cell Distribution Width 15.7H, Platelet Count 191, Mean Platelet Volume 5.4L, Neutrophils (%) (Auto) 45.1, Lymphocytes (%) (Auto) 43.0, Monocytes (%) (Auto) 10.3H, Eosinophils (%) (Auto) 0.2, Basophils (%) (Auto) 1.3, Sodium Level 150H, Potassium Level 4.0, Chloride Level 117H, Carbon Dioxide Level 25, Anion Gap 8, Blood Urea Nitrogen 8, Creatinine 1.2, Estimat Glomerular Filtration Rate 57.0, Glucose Level 61L, Calcium Level 7.0L 12/30/19 06:04: POC Whole Blood Glucose 31*L 12/30/19 06:05: POC Whole Blood Glucose 27*L 12/30/19 07:49: POC Whole Blood Glucose 108H Height (Feet): 5 Height (Inches): 4.00 Weight (Pounds): 158 General Appearance: no apparent distress, lethargic Cardiovascular: tachycardia Respiratory/Chest: decreased breath sounds Abdomen: distended Brian Pichardo MD Dec 30, 2019 09:09
--- NOTE | 2019-12-30 09:15 | Geriatric Medicine Prog Note ---
DATE: 12/29/2019 NOTE: POOR AUDIO QUALITY. SUBJECTIVE: The patient . OBJECTIVE: . LABORATORY DATA: calcium . Albumin . IMPRESSION: 1. Malnutrition. 2. COVID positive pneumonia. 3. Severe . PLAN: Soy Ness M.D. DR: REVA JOB#: [id number] CC:
--- NOTE | 2019-12-30 09:45 | Progress Note ---
DATE: 12/30/2019 SUBJECTIVE: This is a 54-year-old female patient. She is with suspected COVID-19 infection, pneumonia, and hernia. She has got a lot of confusion, disorganized thought process, and decline in cognition below baseline. She is also very agitated and irritable, had to be put in two-point soft restraints because she was trying to get off her bed. She was very agitated, irritable, still being combative, difficult to redirect. MENTAL STATUS EXAMINATION: This is a 54-year-old female patient. Her appearance is disheveled. Attitude, irritable and agitated. Affect is labile. Intellect, poor. Mood, depressed and anxious. Motor activity, psychomotor agitation. Attention span is poor. Orientation x2. Speech is pressured. Thought process, disorganized and illogical. Insight and judgment is poor. DIAGNOSIS: Schizoaffective, bipolar type. PLAN: Treat her with a medication regimen consisting of Depakote at a dose of 500 mg daily and Haldol 5 mg three times a day as well as Geodon 40 mg twice a day. A 20 minutes of cognitive behavioral therapy will help her identify automatic negative thoughts and help convert negative thoughts to more positive thoughts to reduce depression, anxiety, and mood lability. Also Ativan 1 mg every six hours p.r.n. anxiety and agitation. Chart reviewed. Discussed with staff. Seen and assessed at her bedside. Flip Burgos M.D. DR: NIMCO JOB#: [id number] CC:
--- NOTE | 2019-12-30 09:54 | NUR ---
*-* DISCHARGE PLANNING *-* UPDATED CLINICALS HAVE BEEN FAXED TO: [facility] ATTN: ANH P: [phone] F: [phone]
--- NOTE | 2019-12-30 10:29 | General Progress Note ---
Assessment/Plan Problem List: (1) UTI (urinary tract infection) ICD Codes: N39.0 - Urinary tract infection, site not specified SNOMED: 02868280 (2) Malnutrition ICD Codes: E46 - Unspecified protein-calorie malnutrition SNOMED: 78867705 (3) Renal failure ICD Codes: N19 - Unspecified kidney failure SNOMED: 14813473 (4) HTN (hypertension) ICD Codes: I10 - Essential (primary) hypertension SNOMED: 89801951 (5) Hypoglycemia ICD Codes: E16.2 - Hypoglycemia, unspecified SNOMED: 852012697 (6) Hypernatremia ICD Codes: E87.0 - Hyperosmolality and hypernatremia SNOMED: 599632560 (7) Suspected 2019-nCoV infection ICD Codes: Z20.828 - Contact with and (suspected) exposure to other viral communicable diseases SNOMED: 173201298 Status: unchanged Assessment/Plan: o2 pulm tx abx pt diet cbc bmp am wound care ltach eval Subjective Constitutional: Reports: weakness Allergies: Coded Allergies: IBUPROFEN (Verified Allergy, Unknown, 12/20/19) All Systems: reviewed and negative except above Subjective o2nc calm Objective Last 24 Hour Vital Signs Date Time Temp Pulse Resp B/P (MAP) Pulse Ox O2 Delivery O2 Flow Rate FiO2 12/30/19 08:00 96.6 114 20 105/71 (82) 100 12/30/19 08:00 Room Air 2.0 Nasal Cannula 12/30/19 04:00 97.0 85 18 101/66 (78) 98 12/30/19 04:00 Room Air 2.0 Nasal Cannula 12/30/19 03:30 88 12/30/19 00:00 102 12/30/19 00:00 Nasal Cannula 2.0 Room Air 12/30/19 00:00 97.0 88 18 98/68 (78) 99 12/29/19 20:00 Nasal Cannula 2.0 Room Air 12/29/19 20:00 97.2 84 18 106/75 (85) 95 12/29/19 19:43 97 12/29/19 16:00 Room Air Room Air 12/29/19 16:00 97 12/29/19 15:30 97.0 84 18 101/62 (75) 100 12/29/19 12:00 Room Air Room Air 12/29/19 12:00 85 12/29/19 12:00 97.0 90 18 125/81 (96) 99 Intake and Output 12/29/19 12/30/19 19:00 07:00 Intake Total 1100 ml 1623.75 ml Output Total 2000 ml 300 ml Balance -900 ml 1323.75 ml Intake Oral 1000 ml 500 ml IV Total 100 ml 1123.75 ml Output Urine Total 2000 ml 300 ml # Voids 1 # Bowel Movements 3 4 Laboratory Tests 12/29/19 12:49: POC Whole Blood Glucose [Pending] 12/29/19 15:53: POC Whole Blood Glucose [Pending] 12/29/19 21:45: POC Whole Blood Glucose 43L 12/29/19 23:02: POC Whole Blood Glucose 129H 12/30/19 04:31: White Blood Count 9.9, Red Blood Count 3.16L, Hemoglobin 10.0L, Hematocrit 33.6L , Mean Corpuscular Volume 106H, Mean Corpuscular Hemoglobin 31.6H, Mean Corpuscular Hemoglobin Concent 29.8L, Red Cell Distribution Width 15.7H, Platelet Count 191, Mean Platelet Volume 5.4L, Neutrophils (%) (Auto) 45.1, Lymphocytes (%) (Auto) 43.0, Monocytes (%) (Auto) 10.3H, Eosinophils (%) (Auto) 0.2, Basophils (%) (Auto) 1.3, Sodium Level 150H, Potassium Level 4.0, Chloride Level 117H, Carbon Dioxide Level 25, Anion Gap 8, Blood Urea Nitrogen 8, Creatinine 1.2, Estimat Glomerular Filtration Rate 57.0, Glucose Level 61L, Calcium Level 7.0L 12/30/19 06:04: POC Whole Blood Glucose 31*L 12/30/19 06:05: POC Whole Blood Glucose 27*L 12/30/19 07:49: POC Whole Blood Glucose 108H Height (Feet): 5 Height (Inches): 4.00 Weight (Pounds): 158 General Appearance: lethargic EENT: PERRL/EOMI Neck: normal alignment Cardiovascular: normal rate, regular rhythm Respiratory/Chest: no respiratory distress, no accessory muscle use Extremities: normal inspection Skin: normal pigmentation Ricky Potter DO Dec 30, 2019 10:29
--- NOTE | 2019-12-30 10:46 | Cardiac Electrophysiology PN ---
Assessment/Plan Assessment/Plan 1. Hypotension. Due to dehydration and sepsis. Resolved. Echocardiogram EF 65% 2. Hypertension, on p.r.n. IV hydralazine. 3. Severe hypernatremia. Patient is on IV fluid per Dr. Pichardo.Na improved to 150 4. COVID-19 PNA in isolation. 5. K 6.0. Erroneous. Repeat 3.4 6. Incarcerated incisional ventral hernia and Bowel obstruction.S/P surgery by Dr Vargas. 7. S/P Respiratory failure, extubated 12/26/19 DW RN Sim eval pending Subjective Subjective In isolation for Covid positive in SDU. S/P incarcerated ventral hernia surgery 12/25/19. Alert in NAD. Sim eval pending Objective Last 24 Hour Vital Signs Date Time Temp Pulse Resp B/P (MAP) Pulse Ox O2 Delivery O2 Flow Rate FiO2 12/30/19 08:00 96.6 114 20 105/71 (82) 100 12/30/19 08:00 Room Air 2.0 Nasal Cannula 12/30/19 04:00 97.0 85 18 101/66 (78) 98 12/30/19 04:00 Room Air 2.0 Nasal Cannula 12/30/19 03:30 88 12/30/19 00:00 102 12/30/19 00:00 Nasal Cannula 2.0 Room Air 12/30/19 00:00 97.0 88 18 98/68 (78) 99 12/29/19 20:00 Nasal Cannula 2.0 Room Air 12/29/19 20:00 97.2 84 18 106/75 (85) 95 12/29/19 19:43 97 12/29/19 16:00 Room Air Room Air 12/29/19 16:00 97 12/29/19 15:30 97.0 84 18 101/62 (75) 100 12/29/19 12:00 Room Air Room Air 12/29/19 12:00 85 12/29/19 12:00 97.0 90 18 125/81 (96) 99 Intake and Output 12/29/19 12/30/19 19:00 07:00 Intake Total 1100 ml 1623.75 ml Output Total 2000 ml 300 ml Balance -900 ml 1323.75 ml Intake Oral 1000 ml 500 ml IV Total 100 ml 1123.75 ml Output Urine Total 2000 ml 300 ml # Voids 1 # Bowel Movements 3 4 Laboratory Tests Test 12/29/19 12:49 12/29/19 15:53 12/29/19 21:45 12/29/19 23:02 POC Whole Blood Glucose Pending Pending 43 MG/DL (74-106) L 129 MG/DL (74-106) H Test 12/30/19 04:31 12/30/19 06:04 12/30/19 06:05 12/30/19 07:49 White Blood Count 9.9 K/UL (4.8-10.8) Red Blood Count 3.16 M/UL (4.20-5.40) L Hemoglobin 10.0 G/DL (12.0-16.0) L Hematocrit 33.6 % (37.0-47.0) L Mean Corpuscular Volume 106 FL (80-99) H Mean Corpuscular Hemoglobin 31.6 PG (27.0-31.0) H Mean Corpuscular Hemoglobin Concent 29.8 G/DL (32.0-36.0) L Red Cell Distribution Width 15.7 % (11.6-14.8) H Platelet Count 191 K/UL (150-450) Mean Platelet Volume 5.4 FL (6.5-10.1) L Neutrophils (%) (Auto) 45.1 % (45.0-75.0) Lymphocytes (%) (Auto) 43.0 % (20.0-45.0) Monocytes (%) (Auto) 10.3 % (1.0-10.0) H Eosinophils (%) (Auto) 0.2 % (0.0-3.0) Basophils (%) (Auto) 1.3 % (0.0-2.0) Sodium Level 150 MMOL/L (136-145) H Potassium Level 4.0 MMOL/L (3.5-5.1) Chloride Level 117 MMOL/L (98-107) H Carbon Dioxide Level 25 MMOL/L (21-32) Anion Gap 8 mmol/L (5-15) Blood Urea Nitrogen 8 mg/dL (7-18) Creatinine 1.2 MG/DL (0.55-1.30) Estimat Glomerular Filtration Rate 57.0 mL/min (>60) Glucose Level 61 MG/DL (74-106) L Calcium Level 7.0 MG/DL (8.5-10.1) L POC Whole Blood Glucose 31 MG/DL (74-106) *L 27 MG/DL (74-106) *L 108 MG/DL (74-106) H Objective HEAD AND NECK: No JVD. LUNGS: Coarse rhonchi. CARDIOVASCULAR: Regular S1, S2. ABDOMEN: Soft. S/P hernia surgery EXTREMITIES: No pitting edema. Steffen Mera MD Dec 30, 2019 10:46
--- NOTE | 2019-12-30 11:25 | Infectious Diseases Prog Note ---
Assessment/Plan Assessment/Plan antibiotics : cefepime A 1. e.coli sepsis 2. COVID 19 pneumonia on 2 liters, 99 percent saturation 3. incarcerated hernia s/p repair with mesh, lysis of adhesions 4. hypertension 5. renal failure 6. bipolar disorder 7. asthma 8. pseudomonas UTI P 1, continue cefepime 2 more days 2. d/c dexamethasone 3. continue isolation 4. will follow up cultures Subjective ROS Limited/Unobtainable: Yes Allergies: Coded Allergies: IBUPROFEN (Verified Allergy, Unknown, 12/20/19) Objective Last 24 Hour Vital Signs Date Time Temp Pulse Resp B/P (MAP) Pulse Ox O2 Delivery O2 Flow Rate FiO2 12/30/19 08:00 96.6 114 20 105/71 (82) 100 12/30/19 08:00 Room Air 2.0 Nasal Cannula 12/30/19 04:00 97.0 85 18 101/66 (78) 98 12/30/19 04:00 Room Air 2.0 Nasal Cannula 12/30/19 03:30 88 12/30/19 00:00 102 12/30/19 00:00 Nasal Cannula 2.0 Room Air 12/30/19 00:00 97.0 88 18 98/68 (78) 99 12/29/19 20:00 Nasal Cannula 2.0 Room Air 12/29/19 20:00 97.2 84 18 106/75 (85) 95 12/29/19 19:43 97 12/29/19 16:00 Room Air Room Air 12/29/19 16:00 97 12/29/19 15:30 97.0 84 18 101/62 (75) 100 12/29/19 12:00 Room Air Room Air 12/29/19 12:00 85 12/29/19 12:00 97.0 90 18 125/81 (96) 99 Height (Feet): 5 Height (Inches): 4.00 Weight (Pounds): 158 Laboratory Tests Test 12/29/19 12:49 12/29/19 15:53 12/29/19 21:45 12/29/19 23:02 POC Whole Blood Glucose Pending Pending 43 MG/DL (74-106) L 129 MG/DL (74-106) H Test 12/30/19 04:31 12/30/19 06:04 12/30/19 06:05 12/30/19 07:49 White Blood Count 9.9 K/UL (4.8-10.8) Red Blood Count 3.16 M/UL (4.20-5.40) L Hemoglobin 10.0 G/DL (12.0-16.0) L Hematocrit 33.6 % (37.0-47.0) L Mean Corpuscular Volume 106 FL (80-99) H Mean Corpuscular Hemoglobin 31.6 PG (27.0-31.0) H Mean Corpuscular Hemoglobin Concent 29.8 G/DL (32.0-36.0) L Red Cell Distribution Width 15.7 % (11.6-14.8) H Platelet Count 191 K/UL (150-450) Mean Platelet Volume 5.4 FL (6.5-10.1) L Neutrophils (%) (Auto) 45.1 % (45.0-75.0) Lymphocytes (%) (Auto) 43.0 % (20.0-45.0) Monocytes (%) (Auto) 10.3 % (1.0-10.0) H Eosinophils (%) (Auto) 0.2 % (0.0-3.0) Basophils (%) (Auto) 1.3 % (0.0-2.0) Sodium Level 150 MMOL/L (136-145) H Potassium Level 4.0 MMOL/L (3.5-5.1) Chloride Level 117 MMOL/L (98-107) H Carbon Dioxide Level 25 MMOL/L (21-32) Anion Gap 8 mmol/L (5-15) Blood Urea Nitrogen 8 mg/dL (7-18) Creatinine 1.2 MG/DL (0.55-1.30) Estimat Glomerular Filtration Rate 57.0 mL/min (>60) Glucose Level 61 MG/DL (74-106) L Calcium Level 7.0 MG/DL (8.5-10.1) L POC Whole Blood Glucose 31 MG/DL (74-106) *L 27 MG/DL (74-106) *L 108 MG/DL (74-106) H Current Medications Medications (Trade) Dose Ordered Sig/Venita Route PRN Reason Start Time Stop Time Status Last Admin Dose Admin Benztropine Mesylate (Cogentin) 2 mg BID ORAL 12/27/19 18:00 01/20/20 08:59 12/28/19 17:11 Cefepime HCl 1 gm/ Dextrose 55 ml @ 110 mls/hr Q24H IVPB 12/27/19 21:00 01/02/20 20:59 12/29/19 20:41 Dexamethasone Sodium Phosphate (Decadron 10mg/ ml Inj) 6 mg DAILY IV 12/28/19 09:00 01/01/20 08:59 12/30/19 08:23 Dextrose 1,000 ml @ 75 mls/hr [id number] IV 12/30/19 07:00 01/29/20 06:59 12/30/19 06:57 Dextrose (Dextrose 50%) 25 ml Q30M PRN IV Hypoglycemia 12/29/19 11:15 01/28/20 11:07 Dextrose (Dextrose 50%) 50 ml Q30M PRN IV hypoglycemia 12/29/19 11:15 03/28/20 11:14 12/30/19 06:21 Divalproex Sodium (Depakote ER) 500 mg DAILY ORAL 12/28/19 09:00 01/20/20 08:59 12/30/19 08:23 Docusate Sodium (Colace) 100 mg THREE TIMES A DAY ORAL 12/27/19 13:00 01/20/20 08:59 12/28/19 17:10 Haloperidol (Haldol) 5 mg TID ORAL 12/27/19 13:00 02/04/20 13:59 12/30/19 09:01 Heparin Sodium (Porcine) (Heparin 5000 units/ml) 5,000 units EVERY 12 HOURS SUBQ 12/27/19 21:00 02/09/20 08:59 12/30/19 08:29 Hydralazine HCl (Apresoline) 10 mg Q4H PRN IV Blood pressure over 160 systol 12/27/19 12:45 03/24/20 16:37 Lorazepam (Ativan 2mg/ml 1ml) 1 mg Q4H PRN IV For Anxiety 12/27/19 12:45 01/01/20 16:37 12/29/19 22:55 Lorazepam (Ativan) 1 mg Q6H PRN ORAL Agitation 12/27/19 13:00 01/01/20 12:59 Pantoprazole (Protonix) 40 mg EVERY 12 HOURS IVP 12/27/19 21:00 01/24/20 20:59 12/30/19 08:23 Ziprasidone (Geodon) 40 mg Q12HR ORAL 12/27/19 21:00 02/04/20 20:59 12/30/19 08:23 Penny Montague MD Dec 30, 2019 11:25
--- NOTE | 2019-12-30 11:34 | Hematology/Onc Progress Note ---
Assessment/Plan Assessment/Plan Assessment and recs # Thrombocytopenia - potential causes multifactorial, evaluate liver and viral etiologies to begin, also could be related to underlying medications patient has received. covid19++ also s/p ventral hernia repair --> Hep panel and HIV ordered --> US abd to evaluate for cirrhosis and hsm ordered --> Peripheral smear ordered to evaluate for blasts /schistocytes --> abx and other meds have been reviewed --> ok for ppx if plt >50k w/ either heparin or lovenox --> Transfuse if Plt < 20k and fever, or if Plt < 10k without fever --> plt 143-->115-->98->125->220 --> abx ctx # Anemia of iron deficiency, unspecified rule out gi bleed --> obtain a anemia panel, has been ordered --> will/have begun on iv iron and continue x 5 doses --> review if occult blood is + (review this to make sure +). Can consider gi eval --> hgb goal is >7, transfuse as needed --> trend CBC daily to make sure no major acute drop --> no evidence of hemolysis noted --> hgb 8-->8.5->10.4->10 # Coagulopathy likely due to covid19++ in adition to vit k depletion --> have jamilah Vargas, will give ffp and vitk --> recheck inr / ptt after surgery--> surgery completed # Acute febrile illness due to covid19+++ --> due to Suspected 2019-nCoV infection -> on abx --> steriods ahve been given # Atypical pneumonia # Hernia, ventral --> sp surgical repair and revision 12/24 # Hypernatremia # Hypoglycemia # E..coli sepsis # COVID 19 pneumonia # Hypertension # renal failure # Bipolar disorder # Asthma # Dvt ppx heparin sq The timing of this note does not necessarily reflect the time of the patient was seen. Greatly appreciate consultation. Subjective Constitutional: Denies: no symptoms, chills, fever, malaise, weakness, other HEENT: Denies: no symptoms, eye pain, blurred vision, tearing, double vision, ear pain, ear discharge, nose pain, nose congestion, throat pain, throat swelling, mouth pain, mouth swelling, other Cardiovascular: Denies: no symptoms, chest pain, edema, irregular heart rate, lightheadedness, palpitations, syncope, other Respiratory: Denies: no symptoms, cough, shortness of breath, SOB with excertion, SOB at rest, sputum, wheezing, other Gastrointestinal/Abdominal: Denies: no symptoms, abdomen distended, abdominal pain, black stools, tarry stools, blood in stool, constipated, diarrhea, difficulty swallowing, nausea, poor appetite, poor fluid intake, rectal bleeding , vomiting, other Genitourinary: Denies: no symptoms, burning, discharge, frequency, flank pain, hematuria, incontinence, pain, urgency, other Neurologic/Psychiatric: Denies: no symptoms, anxiety, depressed, emotional problems, headache, numbness, paresthesia, pre-existing deficit, seizure, tingling, tremors, weakness, other Endocrine: Denies: no symptoms, excessive sweating, flushing, intolerance to cold, intolerance to heat, increased hunger, increased thirst, increased urine, unexplained weight gain, unexplained weight loss, other Allergies: Coded Allergies: IBUPROFEN (Verified Allergy, Unknown, 12/20/19) Subjective 12/24 abdominal mild pain with ttp, to see by surg for discussion re surgery today 12/25 intubated, no bleeding, meds reviewed, labs noted, dw ID 12/26 extubate,d no bleeding, meds noted, surgical site c/d/i, feeling better 12/28 on nc, improved, labs noted, hgb recovering 12/29 labs reviewed, on nc, no bleeding hgb 10 Objective Objective Current Medications Medications (Trade) Dose Ordered Sig/Venita Route PRN Reason Start Time Stop Time Status Last Admin Dose Admin Benztropine Mesylate (Cogentin) 2 mg BID ORAL 12/27/19 18:00 01/20/20 08:59 12/28/19 17:11 Cefepime HCl 1 gm/ Dextrose 55 ml @ 110 mls/hr Q24H IVPB 12/27/19 21:00 01/02/20 20:59 12/29/19 20:41 Dexamethasone Sodium Phosphate (Decadron 10mg/ ml Inj) 6 mg DAILY IV 12/28/19 09:00 01/01/20 08:59 12/30/19 08:23 Dextrose 1,000 ml @ 75 mls/hr [id number] IV 12/30/19 07:00 01/29/20 06:59 12/30/19 06:57 Dextrose (Dextrose 50%) 25 ml Q30M PRN IV Hypoglycemia 12/29/19 11:15 01/28/20 11:07 Dextrose (Dextrose 50%) 50 ml Q30M PRN IV hypoglycemia 12/29/19 11:15 03/28/20 11:14 12/30/19 06:21 Divalproex Sodium (Depakote ER) 500 mg DAILY ORAL 12/28/19 09:00 01/20/20 08:59 12/30/19 08:23 Docusate Sodium (Colace) 100 mg THREE TIMES A DAY ORAL 12/27/19 13:00 01/20/20 08:59 12/28/19 17:10 Haloperidol (Haldol) 5 mg TID ORAL 12/27/19 13:00 02/04/20 13:59 12/30/19 09:01 Heparin Sodium (Porcine) (Heparin 5000 units/ml) 5,000 units EVERY 12 HOURS SUBQ 12/27/19 21:00 02/09/20 08:59 12/30/19 08:29 Hydralazine HCl (Apresoline) 10 mg Q4H PRN IV Blood pressure over 160 systol 12/27/19 12:45 03/24/20 16:37 Lorazepam (Ativan 2mg/ml 1ml) 1 mg Q4H PRN IV For Anxiety 12/27/19 12:45 01/01/20 16:37 12/29/19 22:55 Lorazepam (Ativan) 1 mg Q6H PRN ORAL Agitation 12/27/19 13:00 01/01/20 12:59 Pantoprazole (Protonix) 40 mg EVERY 12 HOURS IVP 12/27/19 21:00 01/24/20 20:59 12/30/19 08:23 Ziprasidone (Geodon) 40 mg Q12HR ORAL 12/27/19 21:00 02/04/20 20:59 12/30/19 08:23 Last 24 Hour Vital Signs Date Time Temp Pulse Resp B/P (MAP) Pulse Ox O2 Delivery O2 Flow Rate FiO2 12/30/19 08:00 96.6 114 20 105/71 (82) 100 12/30/19 08:00 Room Air 2.0 Nasal Cannula 12/30/19 04:00 97.0 85 18 101/66 (78) 98 12/30/19 04:00 Room Air 2.0 Nasal Cannula 12/30/19 03:30 88 12/30/19 00:00 102 12/30/19 00:00 Nasal Cannula 2.0 Room Air 12/30/19 00:00 97.0 88 18 98/68 (78) 99 12/29/19 20:00 Nasal Cannula 2.0 Room Air 12/29/19 20:00 97.2 84 18 106/75 (85) 95 12/29/19 19:43 97 12/29/19 16:00 Room Air Room Air 12/29/19 16:00 97 12/29/19 15:30 97.0 84 18 101/62 (75) 100 12/29/19 12:00 Room Air Room Air 12/29/19 12:00 85 12/29/19 12:00 97.0 90 18 125/81 (96) 99 12/29/19 08:00 Room Air Room Air 12/29/19 08:00 101 12/29/19 07:30 97.2 87 18 109/70 (83) 99 12/29/19 04:00 Room Air Room Air 12/29/19 04:00 97.3 89 18 125/73 (90) 99 12/29/19 03:54 83 12/29/19 00:00 97.3 88 20 114/72 (86) 95 12/29/19 00:00 Room Air Room Air 12/28/19 23:39 133 12/28/19 20:00 97.7 91 22 105/71 (82) 94 12/28/19 20:00 Room Air Room Air 12/28/19 19:55 83 12/28/19 16:00 97.9 82 18 123/72 (89) 96 12/28/19 16:00 Nasal Cannula 2.0 Nasal Cannula 2.0 12/28/19 15:28 67 12/28/19 12:00 98.0 82 20 104/68 (80) 95 12/28/19 12:00 Nasal Cannula 2.0 Nasal Cannula 2.0 Intake and Output 12/29/19 12/30/19 19:00 07:00 Intake Total 1100 ml 1623.75 ml Output Total 2000 ml 300 ml Balance -900 ml 1323.75 ml Intake Oral 1000 ml 500 ml IV Total 100 ml 1123.75 ml Output Urine Total 2000 ml 300 ml # Voids 1 # Bowel Movements 3 4 Labs Test 12/28/19 04:00 12/28/19 06:00 12/29/19 07:46 12/29/19 07:53 Urine Random Sodium 24 mmol/L (20-110) White Blood Count 8.2 K/UL (4.8-10.8) Red Blood Count 2.97 M/UL (4.20-5.40) Hemoglobin 9.4 G/DL (12.0-16.0) Hematocrit 31.8 % (37.0-47.0) Mean Corpuscular Volume 107 FL (80-99) Mean Corpuscular Hemoglobin 31.7 PG (27.0-31.0) Mean Corpuscular Hemoglobin Concent 29.6 G/DL (32.0-36.0) Red Cell Distribution Width 16.8 % (11.6-14.8) Platelet Count 148 K/UL (150-450) Mean Platelet Volume 6.8 FL (6.5-10.1) Neutrophils (%) (Auto) 63.9 % (45.0-75.0) Lymphocytes (%) (Auto) 25.7 % (20.0-45.0) Monocytes (%) (Auto) 9.4 % (1.0-10.0) Eosinophils (%) (Auto) 0.4 % (0.0-3.0) Basophils (%) (Auto) 0.6 % (0.0-2.0) Sodium Level 160 MMOL/L (136-145) Potassium Level 3.6 MMOL/L (3.5-5.1) Chloride Level 125 MMOL/L (98-107) Carbon Dioxide Level 28 MMOL/L (21-32) Anion Gap 7 mmol/L (5-15) Blood Urea Nitrogen 10 mg/dL (7-18) Creatinine 1.5 MG/DL (0.55-1.30) Estimat Glomerular Filtration Rate 44.1 mL/min (>60) Glucose Level 65 MG/DL (74-106) Calcium Level 7.1 MG/DL (8.5-10.1) Phosphorus Level 3.2 MG/DL (2.5-4.9) Magnesium Level 1.9 MG/DL (1.8-2.4) Total Bilirubin 0.3 MG/DL (0.2-1.0) Aspartate Amino Transf (AST/SGOT) 25 U/L (15-37) Alanine Aminotransferase (ALT/SGPT) 13 U/L (12-78) Alkaline Phosphatase 87 U/L (46-116) Total Protein 5.4 G/DL (6.4-8.2) Albumin 1.1 G/DL (3.4-5.0) Globulin 4.3 g/dL Albumin/Globulin Ratio 0.3 (1.0-2.7) Test 12/29/19 08:05 12/29/19 09:24 12/29/19 10:20 12/29/19 12:49 White Blood Count 8.9 K/UL (4.8-10.8) Red Blood Count 3.27 M/UL (4.20-5.40) Hemoglobin 10.4 G/DL (12.0-16.0) Hematocrit 34.5 % (37.0-47.0) Mean Corpuscular Volume 105 FL (80-99) Mean Corpuscular Hemoglobin 31.6 PG (27.0-31.0) Mean Corpuscular Hemoglobin Concent 30.0 G/DL (32.0-36.0) Red Cell Distribution Width 15.9 % (11.6-14.8) Platelet Count 220 K/UL (150-450) Mean Platelet Volume 6.2 FL (6.5-10.1) Neutrophils (%) (Auto) 59.6 % (45.0-75.0) Lymphocytes (%) (Auto) 30.7 % (20.0-45.0) Monocytes (%) (Auto) 8.5 % (1.0-10.0) Eosinophils (%) (Auto) 0.3 % (0.0-3.0) Basophils (%) (Auto) 0.9 % (0.0-2.0) Sodium Level 152 MMOL/L (136-145) Potassium Level 4.1 MMOL/L (3.5-5.1) Chloride Level 118 MMOL/L (98-107) Carbon Dioxide Level 27 MMOL/L (21-32) Anion Gap 7 mmol/L (5-15) Blood Urea Nitrogen 10 mg/dL (7-18) Creatinine 1.2 MG/DL (0.55-1.30) Estimat Glomerular Filtration Rate 57.0 mL/min (>60) Glucose Level 111 MG/DL (74-106) Calcium Level 7.2 MG/DL (8.5-10.1) Phosphorus Level 2.7 MG/DL (2.5-4.9) Magnesium Level 1.8 MG/DL (1.8-2.4) Total Bilirubin 0.4 MG/DL (0.2-1.0) Aspartate Amino Transf (AST/SGOT) 22 U/L (15-37) Alanine Aminotransferase (ALT/SGPT) 10 U/L (12-78) Alkaline Phosphatase 94 U/L (46-116) Total Protein 5.6 G/DL (6.4-8.2) Albumin 1.1 G/DL (3.4-5.0) Globulin 4.5 g/dL Albumin/Globulin Ratio 0.2 (1.0-2.7) Test 12/29/19 15:53 12/29/19 21:45 12/29/19 23:02 12/30/19 04:31 POC Whole Blood Glucose 43 MG/DL (74-106) 129 MG/DL (74-106) White Blood Count 9.9 K/UL (4.8-10.8) Red Blood Count 3.16 M/UL (4.20-5.40) Hemoglobin 10.0 G/DL (12.0-16.0) Hematocrit 33.6 % (37.0-47.0) Mean Corpuscular Volume 106 FL (80-99) Mean Corpuscular Hemoglobin 31.6 PG (27.0-31.0) Mean Corpuscular Hemoglobin Concent 29.8 G/DL (32.0-36.0) Red Cell Distribution Width 15.7 % (11.6-14.8) Platelet Count 191 K/UL (150-450) Mean Platelet Volume 5.4 FL (6.5-10.1) Neutrophils (%) (Auto) 45.1 % (45.0-75.0) Lymphocytes (%) (Auto) 43.0 % (20.0-45.0) Monocytes (%) (Auto) 10.3 % (1.0-10.0) Eosinophils (%) (Auto) 0.2 % (0.0-3.0) Basophils (%) (Auto) 1.3 % (0.0-2.0) Sodium Level 150 MMOL/L (136-145) Potassium Level 4.0 MMOL/L (3.5-5.1) Chloride Level 117 MMOL/L (98-107) Carbon Dioxide Level 25 MMOL/L (21-32) Anion Gap 8 mmol/L (5-15) Blood Urea Nitrogen 8 mg/dL (7-18) Creatinine 1.2 MG/DL (0.55-1.30) Estimat Glomerular Filtration Rate 57.0 mL/min (>60) Glucose Level 61 MG/DL (74-106) Calcium Level 7.0 MG/DL (8.5-10.1) Test 12/30/19 06:04 12/30/19 06:05 12/30/19 07:49 POC Whole Blood Glucose 31 MG/DL (74-106) 27 MG/DL (74-106) 108 MG/DL (74-106) Height (Feet): 5 Height (Inches): 4.00 Weight (Pounds): 158 Objective Physical Exam: Vitals: reviewed General: NAD HEENT: nc, at Neck: supple Chest: clear breath sounds bilaterally+ nc Cardiovascular: RRR, no s3, s4 Abdomen: soft, nontender, ttp in upper quands, abd surgical scar c/d/i Extremities: no cce, normal range of motion Neuro: alert and oriented Charanjit Sandoval MD Dec 30, 2019 11:34
[2019-12-30 12:00] VITALS: BP 102/65
--- NOTE | 2019-12-30 12:28 | Surgery Progress Note ---
Surgery Progress Note Subjective Procedure Performed 1 open incarcerated ventral hernia incisional repair 2 right rectus musculocutaneous flap 3 left rectus musculocutaneous flap 4 implantation of mesh Bard large double-sided 5 open lysis of adhesions 6 localization tissue transfer with use of skin flaps to close the abdominal wall defect Symptoms: improved, tolerating diet, voiding well, passing flatus, BM Objective Last 24 Hour Vital Signs Date Time Temp Pulse Resp B/P (MAP) Pulse Ox O2 Delivery O2 Flow Rate FiO2 12/30/19 08:00 96.6 114 20 105/71 (82) 100 12/30/19 08:00 Room Air 2.0 Nasal Cannula 12/30/19 04:00 97.0 85 18 101/66 (78) 98 12/30/19 04:00 Room Air 2.0 Nasal Cannula 12/30/19 03:30 88 12/30/19 00:00 102 12/30/19 00:00 Nasal Cannula 2.0 Room Air 12/30/19 00:00 97.0 88 18 98/68 (78) 99 12/29/19 20:00 Nasal Cannula 2.0 Room Air 12/29/19 20:00 97.2 84 18 106/75 (85) 95 12/29/19 19:43 97 12/29/19 16:00 Room Air Room Air 12/29/19 16:00 97 12/29/19 15:30 97.0 84 18 101/62 (75) 100 I&O Intake and Output 12/29/19 12/30/19 19:00 07:00 Intake Total 1100 ml 1623.75 ml Output Total 2000 ml 300 ml Balance -900 ml 1323.75 ml Intake Oral 1000 ml 500 ml IV Total 100 ml 1123.75 ml Output Urine Total 2000 ml 300 ml # Voids 1 # Bowel Movements 3 4 Dressing: dry Wound: clean Cardiovascular: RSR Respiratory: clear Abdomen: soft, non-tender, present bowel sounds, non-distended Extremities: no edema, no tenderness, no cyanosis Laboratory Tests Test 12/29/19 12:49 12/29/19 15:53 12/29/19 21:45 12/29/19 23:02 POC Whole Blood Glucose Pending Pending 43 MG/DL (74-106) L 129 MG/DL (74-106) H Test 12/30/19 04:31 12/30/19 06:04 12/30/19 06:05 12/30/19 07:49 White Blood Count 9.9 K/UL (4.8-10.8) Red Blood Count 3.16 M/UL (4.20-5.40) L Hemoglobin 10.0 G/DL (12.0-16.0) L Hematocrit 33.6 % (37.0-47.0) L Mean Corpuscular Volume 106 FL (80-99) H Mean Corpuscular Hemoglobin 31.6 PG (27.0-31.0) H Mean Corpuscular Hemoglobin Concent 29.8 G/DL (32.0-36.0) L Red Cell Distribution Width 15.7 % (11.6-14.8) H Platelet Count 191 K/UL (150-450) Mean Platelet Volume 5.4 FL (6.5-10.1) L Neutrophils (%) (Auto) 45.1 % (45.0-75.0) Lymphocytes (%) (Auto) 43.0 % (20.0-45.0) Monocytes (%) (Auto) 10.3 % (1.0-10.0) H Eosinophils (%) (Auto) 0.2 % (0.0-3.0) Basophils (%) (Auto) 1.3 % (0.0-2.0) Sodium Level 150 MMOL/L (136-145) H Potassium Level 4.0 MMOL/L (3.5-5.1) Chloride Level 117 MMOL/L (98-107) H Carbon Dioxide Level 25 MMOL/L (21-32) Anion Gap 8 mmol/L (5-15) Blood Urea Nitrogen 8 mg/dL (7-18) Creatinine 1.2 MG/DL (0.55-1.30) Estimat Glomerular Filtration Rate 57.0 mL/min (>60) Glucose Level 61 MG/DL (74-106) L Calcium Level 7.0 MG/DL (8.5-10.1) L POC Whole Blood Glucose 31 MG/DL (74-106) *L 27 MG/DL (74-106) *L 108 MG/DL (74-106) H Test 12/30/19 11:59 POC Whole Blood Glucose 92 MG/DL (74-106) Plan Problems: (1) Incarcerated ventral hernia Assessment & Plan: 54-year-old female multi-medical comorbidities prior midline incision unknown prior surgery but has developed a incisional hernia that seems to be incarcerated at this time. On examination I was able to note the hernia facial grimacing by patient upon manipulation able to only partially reduce it and have ordered a stat CT scan. Case was discussed with primary care physician medical teams. Patient COVID positive abnormal labs will optimize await imaging findings and plan for potential surgical intervention. N.p.o. IV fluids IV antibiotics trend labs we will follow with recommendations thank you for let me participate in patient's care discussed with family and medical team plan for reduction and repair patient high risk, covid +, labs noted Periumbilical ventral hernia, containing a loop of what is probably proximal ileum. Mildly distended fluid-filled small bowel loops leading into this may indicate a slight degree of small bowel obstruction. However, small bowel loops are also mildly dilated distally. Evidence of prior gastric surgery, cholecystectomy and appendectomy Evidence of prior abdominal wall hernia repair Fatty liver Diffuse edema of the subcutaneous fat Small to moderate left pleural effusion. Associated compressive atelectasis at the left lung base Bronchovascular groundglass opacities in the bilateral lungs, presumably related to stated clinical history of COVID infection Right renal cyst Saha catheter. Some retained urine within the bladder despite this Old healed right rib fracture. Degenerative changes of the right hip Postop status post reduction repair. Extubated doing well recovering Labs stable Oral diet as tolerated Local wound care We will follow with recommendations thank you d/c planning (2) Atypical pneumonia (3) Acute febrile illness (4) Hypernatremia (5) Hypoglycemia (6) Renal failure (7) Malnutrition (8) UTI (urinary tract infection) (9) HTN (hypertension) (10) Suspected 2019-nCoV infection Aleksey Vargas Dec 30, 2019 12:28
--- NOTE | 2019-12-30 14:00 | NUR ---
NURSE NOTES: Patient noted with elevated HR 138 bpm sinus tachycardia, assessed vital signs: BP 94/60 HR 120 bpm; no SOB - pt on 2LNC, patient denies dizziness, patient denies chest pain. Performed 12-lead EKG: results revealed sinus tachycardia with occasional PVCs. No PRN medications noted. Contacted Dr. Mera and informed of assessments and 12-lead EKG results. Dr. Mera acknowledged and gave no new orders at this time. Will continue to monitor patient.
--- NOTE | 2019-12-30 14:09 | Pulmonology Progress Note ---
Subjective ROS Limited/Unobtainable: Yes Interval Events: Extubated on 12/27/19 Constitutional: Denies: fever HEENT: Repors: no symptoms Respiratory: Reports: no symptoms Cardiovascular: Reports: no symptoms Gastrointestinal/Abdominal: Denies: nausea, vomiting, diarrhea Genitourinary: Reports: no symptoms Neurologic: Reports: no symptoms Musculoskeletal: Denies: pain Allergies: Coded Allergies: IBUPROFEN (Verified Allergy, Unknown, 12/20/19) All Systems: reviewed and negative except above Objective Last 24 Hour Vital Signs Date Time Temp Pulse Resp B/P (MAP) Pulse Ox O2 Delivery O2 Flow Rate FiO2 12/30/19 12:00 97.5 102 20 102/65 (77) 100 12/30/19 12:00 Room Air 2.0 Nasal Cannula 12/30/19 12:00 98 12/30/19 08:00 91 12/30/19 08:00 96.6 114 20 105/71 (82) 100 12/30/19 08:00 Room Air 2.0 Nasal Cannula 12/30/19 04:00 97.0 85 18 101/66 (78) 98 12/30/19 04:00 Room Air 2.0 Nasal Cannula 12/30/19 03:30 88 12/30/19 00:00 102 12/30/19 00:00 Nasal Cannula 2.0 Room Air 12/30/19 00:00 97.0 88 18 98/68 (78) 99 12/29/19 20:00 Nasal Cannula 2.0 Room Air 12/29/19 20:00 97.2 84 18 106/75 (85) 95 12/29/19 19:43 97 12/29/19 16:00 Room Air Room Air 12/29/19 16:00 97 12/29/19 15:30 97.0 84 18 101/62 (75) 100 Intake and Output 12/29/19 12/30/19 19:00 07:00 Intake Total 1100 ml 1623.75 ml Output Total 2000 ml 300 ml Balance -900 ml 1323.75 ml Intake Oral 1000 ml 500 ml IV Total 100 ml 1123.75 ml Output Urine Total 2000 ml 300 ml # Voids 1 # Bowel Movements 3 4 General Appearance: no acute distress HEENT: normocephalic Respiratory: chest wall non-tender Cardiovascular: normal peripheral pulses, normal rate Abdomen: normal bowel sounds Extremities: no cyanosis Laboratory Tests 12/29/19 15:53: POC Whole Blood Glucose [Pending] 12/29/19 21:45: POC Whole Blood Glucose 43L 12/29/19 23:02: POC Whole Blood Glucose 129H 12/30/19 04:31: White Blood Count 9.9, Red Blood Count 3.16L, Hemoglobin 10.0L, Hematocrit 33.6L , Mean Corpuscular Volume 106H, Mean Corpuscular Hemoglobin 31.6H, Mean Corpuscular Hemoglobin Concent 29.8L, Red Cell Distribution Width 15.7H, Platelet Count 191, Mean Platelet Volume 5.4L, Neutrophils (%) (Auto) 45.1, Lymphocytes (%) (Auto) 43.0, Monocytes (%) (Auto) 10.3H, Eosinophils (%) (Auto) 0.2, Basophils (%) (Auto) 1.3, Sodium Level 150H, Potassium Level 4.0, Chloride Level 117H, Carbon Dioxide Level 25, Anion Gap 8, Blood Urea Nitrogen 8, Creatinine 1.2, Estimat Glomerular Filtration Rate 57.0, Glucose Level 61L, Calcium Level 7.0L 12/30/19 06:04: POC Whole Blood Glucose 31*L 12/30/19 06:05: POC Whole Blood Glucose 27*L 12/30/19 07:49: POC Whole Blood Glucose 108H 12/30/19 11:59: POC Whole Blood Glucose 92 Current Medications Medications (Trade) Dose Ordered Sig/Venita Route PRN Reason Start Time Stop Time Status Last Admin Dose Admin Benztropine Mesylate (Cogentin) 2 mg BID ORAL 12/27/19 18:00 01/20/20 08:59 12/28/19 17:11 Cefepime HCl 1 gm/ Dextrose 55 ml @ 110 mls/hr Q24H IVPB 12/27/19 21:00 01/02/20 20:59 12/29/19 20:41 Dextrose 1,000 ml @ 75 mls/hr [id number] IV 12/30/19 07:00 01/29/20 06:59 12/30/19 06:57 Dextrose (Dextrose 50%) 25 ml Q30M PRN IV Hypoglycemia 12/29/19 11:15 01/28/20 11:07 Dextrose (Dextrose 50%) 50 ml Q30M PRN IV hypoglycemia 12/29/19 11:15 03/28/20 11:14 12/30/19 06:21 Divalproex Sodium (Depakote ER) 500 mg DAILY ORAL 12/28/19 09:00 01/20/20 08:59 12/30/19 08:23 Docusate Sodium (Colace) 100 mg THREE TIMES A DAY ORAL 12/27/19 13:00 01/20/20 08:59 12/28/19 17:10 Haloperidol (Haldol) 5 mg TID ORAL 12/27/19 13:00 02/04/20 13:59 12/30/19 12:05 Heparin Sodium (Porcine) (Heparin 5000 units/ml) 5,000 units EVERY 12 HOURS SUBQ 12/27/19 21:00 02/09/20 08:59 12/30/19 08:29 Hydralazine HCl (Apresoline) 10 mg Q4H PRN IV Blood pressure over 160 systol 12/27/19 12:45 03/24/20 16:37 Lorazepam (Ativan 2mg/ml 1ml) 1 mg Q4H PRN IV For Anxiety 12/27/19 12:45 01/01/20 16:37 12/29/19 22:55 Lorazepam (Ativan) 1 mg Q6H PRN ORAL Agitation 12/27/19 13:00 01/01/20 12:59 Pantoprazole (Protonix) 40 mg EVERY 12 HOURS IVP 12/27/19 21:00 01/24/20 20:59 12/30/19 08:23 Ziprasidone (Geodon) 40 mg Q12HR ORAL 12/27/19 21:00 02/04/20 20:59 12/30/19 08:23 Assessment/Plan Assessment/Plan IMPRESSION: 1. Confirmed COVID-19 pneumonia. 2. Hypernatremia. Improved 3. Psych disorder. 4. longterm resident. 5. E Coli bacteremia 6. Incarcerated hernia s/p repair DISCUSSION: Agree with current medications and care. Continue steroids. Continue medications. I will follow as ict customer support officer. Abx per ID On 2L/min O2 Roberta Manzo Omar Syed MD Dec 30, 2019 14:09
[2019-12-30 16:00] VITALS: BP 96/66
--- NOTE | 2019-12-30 17:56 | NUR ---
CASE MANAGEMENT: REVIEW SI: COVID-19 . PNEUMONIA . T 96.5 HR 114 RR 20 BP 96/66 SAT 100% NC/2L H/H 10.0/33.6 GLUCOSE 122 IS: CEFEPIME IV Q24HR PROTONIX IV Q12HR STEP DOWN UNIT STATUS DCP: CELSO MATIAS
--- NOTE | 2019-12-30 18:40 | NUR ---
NURSE NOTES: medication manager requesting if new COVID-19 swab can be done, at this time patient only has one COVID-19 swab noted. Called and left message with Dr. Montague for request. Noted. Will continue to monitor patient.
--- NOTE | 2019-12-30 19:16 | NUR ---
HAND-OFF: Report given to [employer].
--- NOTE | 2019-12-30 19:17 | NUR ---
NURSE NOTES: Received patient for [employer] Gil. Patient is aaox1 (name), vss, confused, aggressive to staff, no acute distress, and on travel occupational therapist. Patient is uncooperative, resistant to care and clean. Hydration offered and provided. Patient is on 2L NC, on restraints with no signs of skin breakdown, and capillary refill less than 3 seconds. Skin issues noted. IV site right forearm 22, Lt IJ 18G. Bed is at its lowest position, call light in reach, and x3 bed rails are up. Will continue to monitor.
[2019-12-30 20:00] VITALS: BP 104/64
[2019-12-30] MEDS: Cefepime HCl 1 GM in D5W 55 ML IVPB SCH (20:49)
--- NOTE | 2019-12-30 21:20 | NUR ---
NURSE NOTES: Patient has had 3 liquid stool moments for the past 3 days. Stool softener has been held the last 2 days. C-diff couture has been ordered per protocol.
--- NOTE | 2019-12-30 22:30 | NUR ---
NURSE NOTES: Patient refused test and is agitated. I will attempt again when she is less agitated.
--- NOTE | 2019-12-30 23:11 | NUR ---
NURSE NOTES: Patient continues to lash out at staff verbally and with her hands. Patient was observed at the beginning of shift attempting to exit bed to "get her gun" as stated by patient. Patient continues to think we are trying to harm her and states the police will be here soon. Educated the patient on why she is here and who we are as well as reoriented patient to the reality. Will continue to monitor and reorient as needed.
[2019-12-31] VITALS: BP 104/71
--- NOTE | 2019-12-31 01:07 | NUR ---
NURSE NOTES: Covid 19 test in the left nares completed with patient's cooperation. Specimen sent to lab.
[2019-12-31 04:00] VITALS: BP 109/73
[2019-12-31 05:25] LABS: BASOPHILS % (AUTO) 2.3 % (0.0-2.0); EOSINOPHILS % (AUTO) 0.8 % (0.0-3.0); HEMATOCRIT 28.4 % (37.0-47.0); HEMOGLOBIN 8.8 G/DL (12.0-16.0); LYMPHOCYTES % (AUTO) 35.3 % (20.0-45.0); MEAN CORPUSCULAR VOLUME 104 FL (80-99); MONOCYTES % (AUTO) 8.7 % (1.0-10.0); NEUTROPHILS % (AUTO) 52.9 % (45.0-75.0); PLATELET COUNT 233 K/UL (150-450); RED BLOOD COUNT 2.74 M/UL (4.20-5.40); RED CELL DISTRIBUTION WIDTH 15.4 % (11.6-14.8); WHITE BLOOD COUNT 9.1 K/UL (4.8-10.8)
[2019-12-31 05:53] LABS: ALANINE AMINOTRANSFERASE 13 U/L (12-78); ALBUMIN 1.2 G/DL (3.4-5.0); ALBUMIN/GLOBULIN RATIO 0.3 (1.0-2.7); ALKALINE PHOSPHATASE 88 U/L (46-116); ANION GAP 8 mmol/L (5-15); ASPARTATE AMINO TRANSFERASE 15 U/L (15-37); BILIRUBIN,TOTAL 0.2 MG/DL (0.2-1.0); BLOOD UREA NITROGEN 9 mg/dL (7-18); CARBON DIOXIDE 26 MMOL/L (21-32); CHLORIDE 116 MMOL/L (98-107); CREATININE 1.1 MG/DL (0.55-1.30); PHOSPHORUS 2.5 MG/DL (2.5-4.9); POTASSIUM 3.8 MMOL/L (3.5-5.1); SODIUM 150 MMOL/L (136-145)
--- NOTE | 2019-12-31 06:30 | General Progress Note ---
Assessment/Plan Problem List: (1) Suspected 2019-nCoV infection ICD Codes: Z20.828 - Contact with and (suspected) exposure to other viral communicable diseases SNOMED: 994179867 (2) Hypoglycemia ICD Codes: E16.2 - Hypoglycemia, unspecified SNOMED: 139410182 (3) Hypernatremia ICD Codes: E87.0 - Hyperosmolality and hypernatremia SNOMED: 413089841 (4) Atypical pneumonia ICD Codes: J18.9 - Pneumonia, unspecified organism SNOMED: 808436652 (5) Acute febrile illness ICD Codes: R50.9 - Fever, unspecified SNOMED: 971929229 Status: unchanged Assessment/Plan: continue D10 at 75 cc/hour continue glucose monitoring hypoglycemia protocol in order Subjective Allergies: Coded Allergies: IBUPROFEN (Verified Allergy, Unknown, 12/20/19) Subjective events noted glucose values are stable after D10 was started no longer on dexamethasone Item Value Date Time Bedside Blood Glucose 98 mg/dl 12/30/19 2100 Bedside Blood Glucose 122 mg/dl H 12/30/19 1630 Bedside Blood Glucose 92 mg/dl 12/30/19 1130 Bedside Blood Glucose 108 mg/dl 12/30/19 0750 Bedside Blood Glucose 27 mg/dl L 12/30/19 0630 Glucose Level 80 MG/DL 12/31/19 0420 Objective Last 24 Hour Vital Signs Date Time Temp Pulse Resp B/P (MAP) Pulse Ox O2 Delivery O2 Flow Rate FiO2 12/31/19 04:00 98.0 103 24 109/73 (85) 100 12/31/19 04:00 Nasal Cannula 2.0 Nasal Cannula 2.0 12/31/19 03:42 103 12/31/19 00:00 97.1 103 20 104/71 (82) 100 12/31/19 00:00 104 12/31/19 00:00 Nasal Cannula 2.0 Nasal Cannula 2.0 12/30/19 20:00 Nasal Cannula 2.0 Nasal Cannula 2.0 12/30/19 20:00 97.4 106 20 104/64 (77) 100 12/30/19 19:09 134 12/30/19 16:00 105 12/30/19 16:00 Room Air 2.0 Nasal Cannula 12/30/19 16:00 96.5 101 20 96/66 (76) 100 12/30/19 12:00 97.5 102 20 102/65 (77) 100 12/30/19 12:00 Room Air 2.0 Nasal Cannula 12/30/19 12:00 98 12/30/19 08:00 91 12/30/19 08:00 96.6 114 20 105/71 (82) 100 12/30/19 08:00 Room Air 2.0 Nasal Cannula Intake and Output 12/30/19 12/31/19 19:00 07:00 Intake Total 1425 ml 671.2500 ml Output Total 700 ml Balance 725 ml 671.2500 ml Intake Oral 600 ml IV Total 825 ml 671.2500 ml Output Urine Total 700 ml # Bowel Movements 4 Laboratory Tests 12/30/19 07:49: POC Whole Blood Glucose 108H 12/30/19 11:59: POC Whole Blood Glucose 92 12/30/19 16:43: POC Whole Blood Glucose 122H 12/30/19 20:46: POC Whole Blood Glucose 98 12/31/19 04:20: White Blood Count 9.1, Red Blood Count 2.74L, Hemoglobin 8.8L, Hematocrit 28.4L , Mean Corpuscular Volume 104H, Mean Corpuscular Hemoglobin 32.0H, Mean Corpuscular Hemoglobin Concent 30.9L, Red Cell Distribution Width 15.4H, Platelet Count 233, Mean Platelet Volume 6.0L, Neutrophils (%) (Auto) 52.9, Lymphocytes (%) (Auto) 35.3, Monocytes (%) (Auto) 8.7, Eosinophils (%) (Auto) 0.8, Basophils (%) (Auto) 2.3H, Sodium Level 150H, Potassium Level 3.8, Chloride Level 116H, Carbon Dioxide Level 26, Anion Gap 8, Blood Urea Nitrogen 9 , Creatinine 1.1, Estimat Glomerular Filtration Rate > 60, Glucose Level 80, Insulin Level [Pending], Uric Acid 5.8, Calcium Level 7.0L, Phosphorus Level 2.5 , Magnesium Level 1.7L, Total Bilirubin 0.2, Aspartate Amino Transf (AST/SGOT) 15, Alanine Aminotransferase (ALT/SGPT) 13, Alkaline Phosphatase 88, Total Protein 5.2L, Albumin 1.2L, Globulin 4.0, Albumin/Globulin Ratio 0.3L, Cortisol [Pending] 12/31/19 05:29: POC Whole Blood Glucose 79 12/31/19 06:12: POC Whole Blood Glucose [Pending] Height (Feet): 5 Height (Inches): 4.00 Weight (Pounds): 158 Objective Current Medications Medications (Trade) Dose Ordered Sig/Venita Route PRN Reason Start Time Stop Time Status Last Admin Dose Admin Benztropine Mesylate (Cogentin) 2 mg BID ORAL 12/27/19 18:00 01/20/20 08:59 12/28/19 17:11 Cefepime HCl 1 gm/ Dextrose 55 ml @ 110 mls/hr Q24H IVPB 12/27/19 21:00 01/02/20 20:59 12/30/19 20:49 Dextrose 1,000 ml @ 75 mls/hr [id number] IV 12/30/19 07:00 01/29/20 06:59 12/30/19 20:47 Dextrose (Dextrose 50%) 25 ml Q30M PRN IV Hypoglycemia 12/29/19 11:15 01/28/20 11:07 Dextrose (Dextrose 50%) 50 ml Q30M PRN IV hypoglycemia 12/29/19 11:15 03/28/20 11:14 12/30/19 06:21 Divalproex Sodium (Depakote ER) 500 mg DAILY ORAL 12/28/19 09:00 01/20/20 08:59 12/30/19 08:23 Docusate Sodium (Colace) 100 mg THREE TIMES A DAY ORAL 12/27/19 13:00 01/20/20 08:59 12/28/19 17:10 Haloperidol (Haldol) 5 mg TID ORAL 12/27/19 13:00 02/04/20 13:59 12/30/19 12:05 Heparin Sodium (Porcine) (Heparin 5000 units/ml) 5,000 units EVERY 12 HOURS SUBQ 12/27/19 21:00 02/09/20 08:59 12/30/19 20:49 Hydralazine HCl (Apresoline) 10 mg Q4H PRN IV Blood pressure over 160 systol 12/27/19 12:45 03/24/20 16:37 Lorazepam (Ativan 2mg/ml 1ml) 1 mg Q4H PRN IV For Anxiety 12/27/19 12:45 01/01/20 16:37 12/29/19 22:55 Lorazepam (Ativan) 1 mg Q6H PRN ORAL Agitation 12/27/19 13:00 01/01/20 12:59 Pantoprazole (Protonix) 40 mg EVERY 12 HOURS IVP 12/27/19 21:00 01/24/20 20:59 12/30/19 20:48 Ziprasidone (Geodon) 40 mg Q12HR ORAL 12/27/19 21:00 02/04/20 20:59 12/30/19 20:49 Subhash Yang MD Dec 31, 2019 06:30
--- NOTE | 2019-12-31 06:31 | NUR ---
NURSE NOTES: Blood sugar 80mg/dl. Patient is asymptomatic and able to drink juice. Patient refuses to let me change her IV dressing although her demeanor and mannerisms have improved. Will continue to monitor.
--- NOTE | 2019-12-31 07:02 | NUR ---
HAND-OFF: Report given to [employer].
--- NOTE | 2019-12-31 07:19 | NUR ---
NURSE NOTES: Received report from [employer]. Patient is resting in bed, in stable condition. No s/sx of SOB, breathing is even and unlabored. Bed is in lowest position, brakes engaged. Denies any presence of pain or discomfort at this time. Bed is in lowest position, brakes engaged. Call light is kept within easy reach. Will continue to monitor patient.
[2019-12-31 08:00] VITALS: BP 97/56
[2019-12-31] MEDS: Docusate 100mg cap ORAL SCH ×3 (08:56→17:02)
[2019-12-31] MEDS: Benztropine 1mg tab ORAL SCH ×2 (08:56→17:02)
[2019-12-31] MEDS: Heparin 5000 units/ml inj SUBQ SCH ×2 (08:57→20:51)
[2019-12-31] MEDS: Pantoprazole Inj IVP SCH ×3 (09:00→20:49)
--- NOTE | 2019-12-31 09:00 | NUR ---
NURSE NOTES: Spoke with microbiology personnel, verified that COVID-19 swab sample was received last night. Noted.
[2019-12-31] MEDS: Dextrose 10% 1,000 ML IV SCH ×3 (09:08→22:37)
[2019-12-31] MEDS: Ziprasidone 20mg cap ORAL SCH ×2 (09:08→20:48)
[2019-12-31] MEDS: Depakote ER 500mg tab ORAL SCH (09:09)
--- NOTE | 2019-12-31 10:16 | Hematology/Onc Progress Note ---
Assessment/Plan Assessment/Plan Assessment and recs # Thrombocytopenia - potential causes multifactorial, evaluate liver and viral etiologies to begin, also could be related to underlying medications patient has received. covid19++ also s/p ventral hernia repair --> Hep panel and HIV ordered --> US abd to evaluate for cirrhosis and hsm ordered --> Peripheral smear ordered to evaluate for blasts /schistocytes --> abx and other meds have been reviewed --> ok for ppx if plt >50k w/ either heparin or lovenox --> Transfuse if Plt < 20k and fever, or if Plt < 10k without fever --> plt 143-->115-->98->125->220 --> abx ctx # Anemia of iron deficiency, unspecified rule out gi bleed --> obtain a anemia panel, has been ordered --> will/have begun on iv iron and continue x 5 doses --> review if occult blood is + (review this to make sure +). Can consider gi eval --> hgb goal is >7, transfuse as needed --> trend CBC daily to make sure no major acute drop --> no evidence of hemolysis noted --> hgb 8-->8.5->10.4->10->8.8 # Coagulopathy likely due to covid19++ in adition to vit k depletion --> have jamilah Vargas, will give ffp and vitk --> recheck inr / ptt after surgery-->improved # Acute febrile illness due to covid19+++ --> due to Suspected 2019-nCoV infection -> on abx --> steriods ahve been given # Atypical pneumonia # Hernia, ventral --> sp surgical repair and revision 12/24 # Hypernatremia # Hypoglycemia # E..coli sepsis # COVID 19 pneumonia # Hypertension # renal failure # Bipolar disorder # Asthma # Dvt ppx heparin sq The timing of this note does not necessarily reflect the time of the patient was seen. Greatly appreciate consultation. Subjective Constitutional: Denies: no symptoms, chills, fever, malaise, weakness, other HEENT: Denies: no symptoms, eye pain, blurred vision, tearing, double vision, ear pain, ear discharge, nose pain, nose congestion, throat pain, throat swelling, mouth pain, mouth swelling, other Cardiovascular: Denies: no symptoms, chest pain, edema, irregular heart rate, lightheadedness, palpitations, syncope, other Respiratory: Denies: no symptoms, cough, shortness of breath, SOB with excertion, SOB at rest, sputum, wheezing, other Gastrointestinal/Abdominal: Denies: no symptoms, abdomen distended, abdominal pain, black stools, tarry stools, blood in stool, constipated, diarrhea, difficulty swallowing, nausea, poor appetite, poor fluid intake, rectal bleeding , vomiting, other Genitourinary: Denies: no symptoms, burning, discharge, frequency, flank pain, hematuria, incontinence, pain, urgency, other Neurologic/Psychiatric: Denies: no symptoms, anxiety, depressed, emotional problems, headache, numbness, paresthesia, pre-existing deficit, seizure, tingling, tremors, weakness, other Endocrine: Denies: no symptoms, excessive sweating, flushing, intolerance to cold, intolerance to heat, increased hunger, increased thirst, increased urine, unexplained weight gain, unexplained weight loss, other Allergies: Coded Allergies: IBUPROFEN (Verified Allergy, Unknown, 12/20/19) Subjective 12/24 abdominal mild pain with ttp, to see by surg for discussion re surgery today 12/25 intubated, no bleeding, meds reviewed, labs noted, dw ID 12/26 extubate,d no bleeding, meds noted, surgical site c/d/i, feeling better 12/28 on nc, improved, labs noted, hgb recovering 12/29 labs reviewed, on nc, no bleeding hgb 10 12/30 meds are noted, no bleeding, hgb 8.8, no hemolysis Objective Objective Current Medications Medications (Trade) Dose Ordered Sig/Venita Route PRN Reason Start Time Stop Time Status Last Admin Dose Admin Benztropine Mesylate (Cogentin) 2 mg BID ORAL 12/27/19 18:00 01/20/20 08:59 12/28/19 17:11 Cefepime HCl 1 gm/ Dextrose 55 ml @ 110 mls/hr Q24H IVPB 12/27/19 21:00 01/02/20 20:59 12/30/19 20:49 Dextrose 1,000 ml @ 75 mls/hr [id number] IV 12/30/19 07:00 01/29/20 06:59 12/31/19 09:08 Dextrose (Dextrose 50%) 25 ml Q30M PRN IV Hypoglycemia 12/29/19 11:15 01/28/20 11:07 Dextrose (Dextrose 50%) 50 ml Q30M PRN IV hypoglycemia 12/29/19 11:15 03/28/20 11:14 12/30/19 06:21 Divalproex Sodium (Depakote ER) 500 mg DAILY ORAL 12/28/19 09:00 01/20/20 08:59 12/31/19 09:09 Docusate Sodium (Colace) 100 mg THREE TIMES A DAY ORAL 12/27/19 13:00 01/20/20 08:59 12/28/19 17:10 Haloperidol (Haldol) 5 mg TID ORAL 12/27/19 13:00 02/04/20 13:59 12/30/19 12:05 Heparin Sodium (Porcine) (Heparin 5000 units/ml) 5,000 units EVERY 12 HOURS SUBQ 12/27/19 21:00 02/09/20 08:59 12/30/19 20:49 Hydralazine HCl (Apresoline) 10 mg Q4H PRN IV Blood pressure over 160 systol 12/27/19 12:45 03/24/20 16:37 Lorazepam (Ativan 2mg/ml 1ml) 1 mg Q4H PRN IV For Anxiety 12/27/19 12:45 01/01/20 16:37 12/29/19 22:55 Lorazepam (Ativan) 1 mg Q6H PRN ORAL Agitation 12/27/19 13:00 01/01/20 12:59 Pantoprazole (Protonix) 40 mg EVERY 12 HOURS IVP 12/27/19 21:00 01/24/20 20:59 12/31/19 09:55 Ziprasidone (Geodon) 40 mg Q12HR ORAL 12/27/19 21:00 02/04/20 20:59 12/31/19 09:08 Last 24 Hour Vital Signs Date Time Temp Pulse Resp B/P (MAP) Pulse Ox O2 Delivery O2 Flow Rate FiO2 12/31/19 08:00 Nasal Cannula 2.0 Nasal Cannula 2.0 12/31/19 08:00 97.0 101 20 97/56 (70) 100 12/31/19 08:00 111 12/31/19 04:00 98.0 103 24 109/73 (85) 100 12/31/19 04:00 Nasal Cannula 2.0 Nasal Cannula 2.0 12/31/19 03:42 103 12/31/19 00:00 97.1 103 20 104/71 (82) 100 12/31/19 00:00 104 12/31/19 00:00 Nasal Cannula 2.0 Nasal Cannula 2.0 12/30/19 20:00 Nasal Cannula 2.0 Nasal Cannula 2.0 12/30/19 20:00 97.4 106 20 104/64 (77) 100 12/30/19 19:09 134 12/30/19 16:00 105 12/30/19 16:00 Room Air 2.0 Nasal Cannula 12/30/19 16:00 96.5 101 20 96/66 (76) 100 12/30/19 12:00 97.5 102 20 102/65 (77) 100 12/30/19 12:00 Room Air 2.0 Nasal Cannula 12/30/19 12:00 98 12/30/19 08:00 91 12/30/19 08:00 96.6 114 20 105/71 (82) 100 12/30/19 08:00 Room Air 2.0 Nasal Cannula 12/30/19 04:00 97.0 85 18 101/66 (78) 98 12/30/19 04:00 Room Air 2.0 Nasal Cannula 12/30/19 03:30 88 12/30/19 00:00 102 12/30/19 00:00 Nasal Cannula 2.0 Room Air 12/30/19 00:00 97.0 88 18 98/68 (78) 99 12/29/19 20:00 Nasal Cannula 2.0 Room Air 12/29/19 20:00 97.2 84 18 106/75 (85) 95 12/29/19 19:43 97 12/29/19 16:00 Room Air Room Air 12/29/19 16:00 97 12/29/19 15:30 97.0 84 18 101/62 (75) 100 12/29/19 12:00 Room Air Room Air 12/29/19 12:00 85 12/29/19 12:00 97.0 90 18 125/81 (96) 99 Intake and Output 12/30/19 12/31/19 19:00 07:00 Intake Total 1425 ml 821.2500 ml Output Total 700 ml Balance 725 ml 821.2500 ml Intake Oral 600 ml IV Total 825 ml 821.2500 ml Output Urine Total 700 ml # Bowel Movements 4 Labs Test 12/29/19 07:46 12/29/19 07:53 12/29/19 08:05 12/29/19 09:24 Test 12/29/19 10:20 12/29/19 12:49 12/29/19 15:53 12/29/19 21:45 White Blood Count 8.9 K/UL (4.8-10.8) Red Blood Count 3.27 M/UL (4.20-5.40) Hemoglobin 10.4 G/DL (12.0-16.0) Hematocrit 34.5 % (37.0-47.0) Mean Corpuscular Volume 105 FL (80-99) Mean Corpuscular Hemoglobin 31.6 PG (27.0-31.0) Mean Corpuscular Hemoglobin Concent 30.0 G/DL (32.0-36.0) Red Cell Distribution Width 15.9 % (11.6-14.8) Platelet Count 220 K/UL (150-450) Mean Platelet Volume 6.2 FL (6.5-10.1) Neutrophils (%) (Auto) 59.6 % (45.0-75.0) Lymphocytes (%) (Auto) 30.7 % (20.0-45.0) Monocytes (%) (Auto) 8.5 % (1.0-10.0) Eosinophils (%) (Auto) 0.3 % (0.0-3.0) Basophils (%) (Auto) 0.9 % (0.0-2.0) Sodium Level 152 MMOL/L (136-145) Potassium Level 4.1 MMOL/L (3.5-5.1) Chloride Level 118 MMOL/L (98-107) Carbon Dioxide Level 27 MMOL/L (21-32) Anion Gap 7 mmol/L (5-15) Blood Urea Nitrogen 10 mg/dL (7-18) Creatinine 1.2 MG/DL (0.55-1.30) Estimat Glomerular Filtration Rate 57.0 mL/min (>60) Glucose Level 111 MG/DL (74-106) Calcium Level 7.2 MG/DL (8.5-10.1) Phosphorus Level 2.7 MG/DL (2.5-4.9) Magnesium Level 1.8 MG/DL (1.8-2.4) Total Bilirubin 0.4 MG/DL (0.2-1.0) Aspartate Amino Transf (AST/SGOT) 22 U/L (15-37) Alanine Aminotransferase (ALT/SGPT) 10 U/L (12-78) Alkaline Phosphatase 94 U/L (46-116) Total Protein 5.6 G/DL (6.4-8.2) Albumin 1.1 G/DL (3.4-5.0) Globulin 4.5 g/dL Albumin/Globulin Ratio 0.2 (1.0-2.7) POC Whole Blood Glucose 43 MG/DL (74-106) Test 12/29/19 23:02 12/30/19 04:31 12/30/19 06:04 12/30/19 06:05 POC Whole Blood Glucose 129 MG/DL (74-106) 31 MG/DL (74-106) 27 MG/DL (74-106) White Blood Count 9.9 K/UL (4.8-10.8) Red Blood Count 3.16 M/UL (4.20-5.40) Hemoglobin 10.0 G/DL (12.0-16.0) Hematocrit 33.6 % (37.0-47.0) Mean Corpuscular Volume 106 FL (80-99) Mean Corpuscular Hemoglobin 31.6 PG (27.0-31.0) Mean Corpuscular Hemoglobin Concent 29.8 G/DL (32.0-36.0) Red Cell Distribution Width 15.7 % (11.6-14.8) Platelet Count 191 K/UL (150-450) Mean Platelet Volume 5.4 FL (6.5-10.1) Neutrophils (%) (Auto) 45.1 % (45.0-75.0) Lymphocytes (%) (Auto) 43.0 % (20.0-45.0) Monocytes (%) (Auto) 10.3 % (1.0-10.0) Eosinophils (%) (Auto) 0.2 % (0.0-3.0) Basophils (%) (Auto) 1.3 % (0.0-2.0) Sodium Level 150 MMOL/L (136-145) Potassium Level 4.0 MMOL/L (3.5-5.1) Chloride Level 117 MMOL/L (98-107) Carbon Dioxide Level 25 MMOL/L (21-32) Anion Gap 8 mmol/L (5-15) Blood Urea Nitrogen 8 mg/dL (7-18) Creatinine 1.2 MG/DL (0.55-1.30) Estimat Glomerular Filtration Rate 57.0 mL/min (>60) Glucose Level 61 MG/DL (74-106) Calcium Level 7.0 MG/DL (8.5-10.1) Test 12/30/19 07:49 12/30/19 11:59 12/30/19 16:43 12/30/19 20:46 POC Whole Blood Glucose 108 MG/DL (74-106) 92 MG/DL (74-106) 122 MG/DL (74-106) 98 MG/DL (74-106) Test 12/31/19 04:20 12/31/19 05:29 12/31/19 06:12 White Blood Count 9.1 K/UL (4.8-10.8) Red Blood Count 2.74 M/UL (4.20-5.40) Hemoglobin 8.8 G/DL (12.0-16.0) Hematocrit 28.4 % (37.0-47.0) Mean Corpuscular Volume 104 FL (80-99) Mean Corpuscular Hemoglobin 32.0 PG (27.0-31.0) Mean Corpuscular Hemoglobin Concent 30.9 G/DL (32.0-36.0) Red Cell Distribution Width 15.4 % (11.6-14.8) Platelet Count 233 K/UL (150-450) Mean Platelet Volume 6.0 FL (6.5-10.1) Neutrophils (%) (Auto) 52.9 % (45.0-75.0) Lymphocytes (%) (Auto) 35.3 % (20.0-45.0) Monocytes (%) (Auto) 8.7 % (1.0-10.0) Eosinophils (%) (Auto) 0.8 % (0.0-3.0) Basophils (%) (Auto) 2.3 % (0.0-2.0) Sodium Level 150 MMOL/L (136-145) Potassium Level 3.8 MMOL/L (3.5-5.1) Chloride Level 116 MMOL/L (98-107) Carbon Dioxide Level 26 MMOL/L (21-32) Anion Gap 8 mmol/L (5-15) Blood Urea Nitrogen 9 mg/dL (7-18) Creatinine 1.1 MG/DL (0.55-1.30) Estimat Glomerular Filtration Rate > 60 mL/min (>60) Glucose Level 80 MG/DL (74-106) Uric Acid 5.8 MG/DL (2.6-7.2) Calcium Level 7.0 MG/DL (8.5-10.1) Phosphorus Level 2.5 MG/DL (2.5-4.9) Magnesium Level 1.7 MG/DL (1.8-2.4) Total Bilirubin 0.2 MG/DL (0.2-1.0) Aspartate Amino Transf (AST/SGOT) 15 U/L (15-37) Alanine Aminotransferase (ALT/SGPT) 13 U/L (12-78) Alkaline Phosphatase 88 U/L (46-116) Total Protein 5.2 G/DL (6.4-8.2) Albumin 1.2 G/DL (3.4-5.0) Globulin 4.0 g/dL Albumin/Globulin Ratio 0.3 (1.0-2.7) POC Whole Blood Glucose 79 MG/DL (74-106) Height (Feet): 5 Height (Inches): 4.00 Weight (Pounds): 155 Objective Physical Exam: Vitals: reviewed General: NAD HEENT: nc, at Neck: supple Chest: clear breath sounds bilaterally+ nc Cardiovascular: RRR, no s3, s4 Abdomen: soft, nontender, ttp in upper quands, abd surgical scar c/d/i Extremities: no cce, normal range of motion Neuro: alert and oriented Charanjit Sandoval MD Dec 31, 2019 10:16
--- NOTE | 2019-12-31 10:46 | Nephrology Progress Note ---
Assessment/Plan Problem List: (1) Renal failure Assessment: Acute on chronic (2) Suspected 2019-nCoV infection Assessment: Acute febrile illness (3) Hypernatremia Assessment: Improving (4) Hypoglycemia Assessment: Improving Assessment Renal failure, most likely chronic, with superimposed acute renal failure. Acute febrile illness, suspected COVID-19 infection. Hypernatremia, likely due to free water deficit. Hypoglycemia Severe hypoalbuminemia Atypical pneumonia Anemia History of psych disease Plan December 30: Lab reviewed. Serum sodium 158. On D10 IV fluid. Mag supplement ordered. December 29: Lab reviewed. Periodic hypoglycemia. On nasal cannula. Stable from renal standpoint of view. Hypoglycemia protocol in place. Per order. December 28: Labs reviewed. Serum sodium going down. On nasal cannula. Continue per consultants. December 27: Now in [facility]. Postop day 3. On nasal cannula. Labs reviewed. Hypernatremia improving. Continue D5W however will cut down the rate. Continue to monitor electrolytes. Continue per consultants. December 26: Remains in ICU. Postop day 2. Is now extubated. Lab reviewed. Hypernatremia persists. Continue D5W. Discussed with RN. December 25: Patient in ICU. Had surgery yesterday December 24. Patient remains intubated, due for extubation. Lab reviewed. Discussed with RN. Continue D5W for hypernatremia. Patient overall stable from renal standpoint of view. December 24: Renal parameters reviewed. Creatinine within normal limit. Serum sodium remains high. Patient due for hernia surgery today. Continue D5W IV fluid. December 23: Renal parameters reviewed. Creatinine down to 1.4. Serum sodium higher. Patient is being investigated for incarcerated ventral hernia by general surgery. Continue current IV fluid and monitor renal parameters. December 22: Will recheck serum potassium. If nonhemolyzed value still elevated will treat hyperkalemia. Discussed with DOT Leary. Continue the rest of the medication. Stop blood pressure medication due to low blood pressure, adjust the dose when the blood pressure improves PRN IV hydralazine for blood pressure spike D5W IV hydration Protonix p.o. Albumin IV bolus Monitor renal parameters Continue per consultants Saha catheter, urine studies Subjective ROS Limited/Unobtainable: No Constitutional: Reports: malaise, weakness Objective Objective Last 24 Hour Vital Signs Date Time Temp Pulse Resp B/P (MAP) Pulse Ox O2 Delivery O2 Flow Rate FiO2 7/14/20 08:00 Nasal Cannula 2.0 Nasal Cannula 2.0 12/31/19 08:00 97.0 101 20 97/56 (70) 100 12/31/19 08:00 111 12/31/19 04:00 98.0 103 24 109/73 (85) 100 12/31/19 04:00 Nasal Cannula 2.0 Nasal Cannula 2.0 12/31/19 03:42 103 12/31/19 00:00 97.1 103 20 104/71 (82) 100 12/31/19 00:00 104 12/31/19 00:00 Nasal Cannula 2.0 Nasal Cannula 2.0 12/30/19 20:00 Nasal Cannula 2.0 Nasal Cannula 2.0 12/30/19 20:00 97.4 106 20 104/64 (77) 100 12/30/19 19:09 134 12/30/19 16:00 105 12/30/19 16:00 Room Air 2.0 Nasal Cannula 12/30/19 16:00 96.5 101 20 96/66 (76) 100 12/30/19 12:00 97.5 102 20 102/65 (77) 100 12/30/19 12:00 Room Air 2.0 Nasal Cannula 12/30/19 12:00 98 Intake and Output 12/30/19 12/31/19 19:00 07:00 Intake Total 1425 ml 821.2500 ml Output Total 700 ml Balance 725 ml 821.2500 ml Intake Oral 600 ml IV Total 825 ml 821.2500 ml Output Urine Total 700 ml # Bowel Movements 4 Current Medications Medications (Trade) Dose Ordered Sig/Venita Route PRN Reason Start Time Stop Time Status Last Admin Dose Admin Benztropine Mesylate (Cogentin) 2 mg BID ORAL 12/27/19 18:00 01/20/20 08:59 12/28/19 17:11 Cefepime HCl 1 gm/ Dextrose 55 ml @ 110 mls/hr Q24H IVPB 12/27/19 21:00 01/02/20 20:59 12/30/19 20:49 Dextrose 1,000 ml @ 75 mls/hr [id number] IV 12/30/19 07:00 01/29/20 06:59 12/31/19 09:08 Dextrose (Dextrose 50%) 25 ml Q30M PRN IV Hypoglycemia 12/29/19 11:15 01/28/20 11:07 Dextrose (Dextrose 50%) 50 ml Q30M PRN IV hypoglycemia 12/29/19 11:15 03/28/20 11:14 12/30/19 06:21 Divalproex Sodium (Depakote ER) 500 mg DAILY ORAL 12/28/19 09:00 01/20/20 08:59 12/31/19 09:09 Docusate Sodium (Colace) 100 mg THREE TIMES A DAY ORAL 12/27/19 13:00 01/20/20 08:59 12/28/19 17:10 Haloperidol (Haldol) 5 mg TID ORAL 12/27/19 13:00 02/04/20 13:59 12/30/19 12:05 Heparin Sodium (Porcine) (Heparin 5000 units/ml) 5,000 units EVERY 12 HOURS SUBQ 12/27/19 21:00 02/09/20 08:59 12/30/19 20:49 Hydralazine HCl (Apresoline) 10 mg Q4H PRN IV Blood pressure over 160 systol 12/27/19 12:45 03/24/20 16:37 Lorazepam (Ativan 2mg/ml 1ml) 1 mg Q4H PRN IV For Anxiety 12/27/19 12:45 01/01/20 16:37 12/29/19 22:55 Lorazepam (Ativan) 1 mg Q6H PRN ORAL Agitation 12/27/19 13:00 01/01/20 12:59 Magnesium Sulfate 100 ml @ 100 mls/hr Q1H IVPB 12/31/19 11:00 12/31/19 12:59 Pantoprazole (Protonix) 40 mg EVERY 12 HOURS IVP 12/27/19 21:00 01/24/20 20:59 12/31/19 09:55 Ziprasidone (Geodon) 40 mg Q12HR ORAL 12/27/19 21:00 02/04/20 20:59 12/31/19 09:08 Laboratory Tests 12/30/19 11:59: POC Whole Blood Glucose 92 12/30/19 16:43: POC Whole Blood Glucose 122H 12/30/19 20:46: POC Whole Blood Glucose 98 12/31/19 04:20: White Blood Count 9.1, Red Blood Count 2.74L, Hemoglobin 8.8L, Hematocrit 28.4L , Mean Corpuscular Volume 104H, Mean Corpuscular Hemoglobin 32.0H, Mean Corpuscular Hemoglobin Concent 30.9L, Red Cell Distribution Width 15.4H, Platelet Count 233, Mean Platelet Volume 6.0L, Neutrophils (%) (Auto) 52.9, Lymphocytes (%) (Auto) 35.3, Monocytes (%) (Auto) 8.7, Eosinophils (%) (Auto) 0.8, Basophils (%) (Auto) 2.3H, Sodium Level 150H, Potassium Level 3.8, Chloride Level 116H, Carbon Dioxide Level 26, Anion Gap 8, Blood Urea Nitrogen 9 , Creatinine 1.1, Estimat Glomerular Filtration Rate > 60, Glucose Level 80, Insulin Level [Pending], Uric Acid 5.8, Calcium Level 7.0L, Phosphorus Level 2.5 , Magnesium Level 1.7L, Total Bilirubin 0.2, Aspartate Amino Transf (AST/SGOT) 15, Alanine Aminotransferase (ALT/SGPT) 13, Alkaline Phosphatase 88, Total Protein 5.2L, Albumin 1.2L, Globulin 4.0, Albumin/Globulin Ratio 0.3L, Cortisol [Pending] 12/31/19 05:29: POC Whole Blood Glucose 79 12/31/19 06:12: POC Whole Blood Glucose [Pending] Height (Feet): 5 Height (Inches): 4.00 Weight (Pounds): 155 General Appearance: no apparent distress, lethargic Cardiovascular: tachycardia Respiratory/Chest: decreased breath sounds Abdomen: distended Brian Pichardo MD Dec 31, 2019 10:46
--- NOTE | 2019-12-31 11:18 | Infectious Diseases Prog Note ---
Assessment/Plan Assessment/Plan antibiotics : cefepime A 1. e.coli sepsis 2. COVID 19 pneumonia on 2 liters, 100 percent saturation 3. incarcerated hernia s/p repair with mesh, lysis of adhesions 4. hypertension 5. renal failure 6. bipolar disorder 7. asthma 8. pseudomonas UTI 9. head lice s/p permethrin shampoo P 1, continue cefepime 1 more day 2. continue isolation 3. will follow up cultures Subjective Constitutional: Denies: fever, chills Respiratory: Denies: shortness of breath, dry cough Gastrointestinal/Abdominal: Denies: nausea, vomiting, diarrhea Musculoskeletal: Denies: pain Allergies: Coded Allergies: IBUPROFEN (Verified Allergy, Unknown, 12/20/19) Objective Last 24 Hour Vital Signs Date Time Temp Pulse Resp B/P (MAP) Pulse Ox O2 Delivery O2 Flow Rate FiO2 12/31/19 08:00 Nasal Cannula 2.0 Nasal Cannula 2.0 12/31/19 08:00 97.0 101 20 97/56 (70) 100 12/31/19 08:00 111 12/31/19 04:00 98.0 103 24 109/73 (85) 100 12/31/19 04:00 Nasal Cannula 2.0 Nasal Cannula 2.0 12/31/19 03:42 103 12/31/19 00:00 97.1 103 20 104/71 (82) 100 12/31/19 00:00 104 12/31/19 00:00 Nasal Cannula 2.0 Nasal Cannula 2.0 12/30/19 20:00 Nasal Cannula 2.0 Nasal Cannula 2.0 12/30/19 20:00 97.4 106 20 104/64 (77) 100 12/30/19 19:09 134 12/30/19 16:00 105 12/30/19 16:00 Room Air 2.0 Nasal Cannula 12/30/19 16:00 96.5 101 20 96/66 (76) 100 12/30/19 12:00 97.5 102 20 102/65 (77) 100 12/30/19 12:00 Room Air 2.0 Nasal Cannula 12/30/19 12:00 98 Height (Feet): 5 Height (Inches): 4.00 Weight (Pounds): 155 Laboratory Tests Test 12/30/19 11:59 12/30/19 16:43 12/30/19 20:46 12/31/19 04:20 POC Whole Blood Glucose 92 MG/DL (74-106) 122 MG/DL (74-106) H 98 MG/DL (74-106) White Blood Count 9.1 K/UL (4.8-10.8) Red Blood Count 2.74 M/UL (4.20-5.40) L Hemoglobin 8.8 G/DL (12.0-16.0) L Hematocrit 28.4 % (37.0-47.0) L Mean Corpuscular Volume 104 FL (80-99) H Mean Corpuscular Hemoglobin 32.0 PG (27.0-31.0) H Mean Corpuscular Hemoglobin Concent 30.9 G/DL (32.0-36.0) L Red Cell Distribution Width 15.4 % (11.6-14.8) H Platelet Count 233 K/UL (150-450) Mean Platelet Volume 6.0 FL (6.5-10.1) L Neutrophils (%) (Auto) 52.9 % (45.0-75.0) Lymphocytes (%) (Auto) 35.3 % (20.0-45.0) Monocytes (%) (Auto) 8.7 % (1.0-10.0) Eosinophils (%) (Auto) 0.8 % (0.0-3.0) Basophils (%) (Auto) 2.3 % (0.0-2.0) H Sodium Level 150 MMOL/L (136-145) H Potassium Level 3.8 MMOL/L (3.5-5.1) Chloride Level 116 MMOL/L (98-107) H Carbon Dioxide Level 26 MMOL/L (21-32) Anion Gap 8 mmol/L (5-15) Blood Urea Nitrogen 9 mg/dL (7-18) Creatinine 1.1 MG/DL (0.55-1.30) Estimat Glomerular Filtration Rate > 60 mL/min (>60) Glucose Level 80 MG/DL (74-106) Insulin Level Pending Uric Acid 5.8 MG/DL (2.6-7.2) Calcium Level 7.0 MG/DL (8.5-10.1) L Phosphorus Level 2.5 MG/DL (2.5-4.9) Magnesium Level 1.7 MG/DL (1.8-2.4) L Total Bilirubin 0.2 MG/DL (0.2-1.0) Aspartate Amino Transf (AST/SGOT) 15 U/L (15-37) Alanine Aminotransferase (ALT/SGPT) 13 U/L (12-78) Alkaline Phosphatase 88 U/L (46-116) Total Protein 5.2 G/DL (6.4-8.2) L Albumin 1.2 G/DL (3.4-5.0) L Globulin 4.0 g/dL Albumin/Globulin Ratio 0.3 (1.0-2.7) L Cortisol Pending Test 12/31/19 05:29 12/31/19 06:12 POC Whole Blood Glucose 79 MG/DL (74-106) Pending Current Medications Medications (Trade) Dose Ordered Sig/Venita Route PRN Reason Start Time Stop Time Status Last Admin Dose Admin Benztropine Mesylate (Cogentin) 2 mg BID ORAL 12/27/19 18:00 01/20/20 08:59 12/28/19 17:11 Cefepime HCl 1 gm/ Dextrose 55 ml @ 110 mls/hr Q24H IVPB 12/27/19 21:00 01/02/20 20:59 12/30/19 20:49 Dextrose 1,000 ml @ 75 mls/hr [id number] IV 12/30/19 07:00 01/29/20 06:59 12/31/19 09:08 Dextrose (Dextrose 50%) 25 ml Q30M PRN IV Hypoglycemia 12/29/19 11:15 01/28/20 11:07 Dextrose (Dextrose 50%) 50 ml Q30M PRN IV hypoglycemia 12/29/19 11:15 03/28/20 11:14 12/30/19 06:21 Divalproex Sodium (Depakote ER) 500 mg DAILY ORAL 12/28/19 09:00 01/20/20 08:59 12/31/19 09:09 Docusate Sodium (Colace) 100 mg THREE TIMES A DAY ORAL 12/27/19 13:00 01/20/20 08:59 12/28/19 17:10 Haloperidol (Haldol) 5 mg TID ORAL 12/27/19 13:00 02/04/20 13:59 7/13/20 12:05 Heparin Sodium (Porcine) (Heparin 5000 units/ml) 5,000 units EVERY 12 HOURS SUBQ 12/27/19 21:00 02/09/20 08:59 12/30/19 20:49 Hydralazine HCl (Apresoline) 10 mg Q4H PRN IV Blood pressure over 160 systol 12/27/19 12:45 03/24/20 16:37 Lorazepam (Ativan 2mg/ml 1ml) 1 mg Q4H PRN IV For Anxiety 12/27/19 12:45 01/01/20 16:37 12/29/19 22:55 Lorazepam (Ativan) 1 mg Q6H PRN ORAL Agitation 12/27/19 13:00 01/01/20 12:59 Magnesium Sulfate 100 ml @ 100 mls/hr Q1H IVPB 12/31/19 11:00 12/31/19 12:59 12/31/19 10:54 Pantoprazole (Protonix) 40 mg EVERY 12 HOURS IVP 12/27/19 21:00 01/24/20 20:59 12/31/19 09:55 Ziprasidone (Geodon) 40 mg Q12HR ORAL 12/27/19 21:00 02/04/20 20:59 12/31/19 09:08 Penny Montague MD Dec 31, 2019 11:18
--- NOTE | 2019-12-31 11:54 | Pulmonology Progress Note ---
Subjective ROS Limited/Unobtainable: No Interval Events: Extubated on 12/27/19 Constitutional: Denies: fever, chills HEENT: Repors: no symptoms Respiratory: Reports: no symptoms Cardiovascular: Reports: no symptoms Gastrointestinal/Abdominal: Denies: nausea, vomiting, diarrhea Genitourinary: Reports: no symptoms Neurologic: Reports: no symptoms Musculoskeletal: Denies: pain Allergies: Coded Allergies: IBUPROFEN (Verified Allergy, Unknown, 12/20/19) All Systems: reviewed and negative except above Objective Last 24 Hour Vital Signs Date Time Temp Pulse Resp B/P (MAP) Pulse Ox O2 Delivery O2 Flow Rate FiO2 12/31/19 08:00 Nasal Cannula 2.0 Nasal Cannula 2.0 12/31/19 08:00 97.0 101 20 97/56 (70) 100 12/31/19 08:00 111 12/31/19 04:00 98.0 103 24 109/73 (85) 100 12/31/19 04:00 Nasal Cannula 2.0 Nasal Cannula 2.0 12/31/19 03:42 103 12/31/19 00:00 97.1 103 20 104/71 (82) 100 12/31/19 00:00 104 12/31/19 00:00 Nasal Cannula 2.0 Nasal Cannula 2.0 12/30/19 20:00 Nasal Cannula 2.0 Nasal Cannula 2.0 12/30/19 20:00 97.4 106 20 104/64 (77) 100 12/30/19 19:09 134 12/30/19 16:00 105 12/30/19 16:00 Room Air 2.0 Nasal Cannula 12/30/19 16:00 96.5 101 20 96/66 (76) 100 12/30/19 12:00 97.5 102 20 102/65 (77) 100 12/30/19 12:00 Room Air 2.0 Nasal Cannula 12/30/19 12:00 98 Intake and Output 12/30/19 12/31/19 19:00 07:00 Intake Total 1425 ml 821.2500 ml Output Total 700 ml Balance 725 ml 821.2500 ml Intake Oral 600 ml IV Total 825 ml 821.2500 ml Output Urine Total 700 ml # Bowel Movements 4 General Appearance: no acute distress HEENT: normocephalic Respiratory: chest wall non-tender Cardiovascular: normal peripheral pulses, normal rate Abdomen: normal bowel sounds Extremities: no cyanosis Laboratory Tests 12/30/19 11:59: POC Whole Blood Glucose 92 12/30/19 16:43: POC Whole Blood Glucose 122H 12/30/19 20:46: POC Whole Blood Glucose 98 12/31/19 04:20: White Blood Count 9.1, Red Blood Count 2.74L, Hemoglobin 8.8L, Hematocrit 28.4L , Mean Corpuscular Volume 104H, Mean Corpuscular Hemoglobin 32.0H, Mean Corpuscular Hemoglobin Concent 30.9L, Red Cell Distribution Width 15.4H, Platelet Count 233, Mean Platelet Volume 6.0L, Neutrophils (%) (Auto) 52.9, Lymphocytes (%) (Auto) 35.3, Monocytes (%) (Auto) 8.7, Eosinophils (%) (Auto) 0.8, Basophils (%) (Auto) 2.3H, Sodium Level 150H, Potassium Level 3.8, Chloride Level 116H, Carbon Dioxide Level 26, Anion Gap 8, Blood Urea Nitrogen 9 , Creatinine 1.1, Estimat Glomerular Filtration Rate > 60, Glucose Level 80, Insulin Level [Pending], Uric Acid 5.8, Calcium Level 7.0L, Phosphorus Level 2.5 , Magnesium Level 1.7L, Total Bilirubin 0.2, Aspartate Amino Transf (AST/SGOT) 15, Alanine Aminotransferase (ALT/SGPT) 13, Alkaline Phosphatase 88, Total Protein 5.2L, Albumin 1.2L, Globulin 4.0, Albumin/Globulin Ratio 0.3L, Cortisol [Pending] 12/31/19 05:29: POC Whole Blood Glucose 79 12/31/19 06:12: POC Whole Blood Glucose [Pending] Current Medications Medications (Trade) Dose Ordered Sig/Venita Route PRN Reason Start Time Stop Time Status Last Admin Dose Admin Benztropine Mesylate (Cogentin) 2 mg BID ORAL 12/27/19 18:00 01/20/20 08:59 12/28/19 17:11 Cefepime HCl 1 gm/ Dextrose 55 ml @ 110 mls/hr Q24H IVPB 12/27/19 21:00 01/02/20 20:59 12/30/19 20:49 Dextrose 1,000 ml @ 75 mls/hr [id number] IV 12/30/19 07:00 01/29/20 06:59 12/31/19 09:08 Dextrose (Dextrose 50%) 25 ml Q30M PRN IV Hypoglycemia 12/29/19 11:15 01/28/20 11:07 Dextrose (Dextrose 50%) 50 ml Q30M PRN IV hypoglycemia 12/29/19 11:15 03/28/20 11:14 12/30/19 06:21 Divalproex Sodium (Depakote ER) 500 mg DAILY ORAL 12/28/19 09:00 01/20/20 08:59 12/31/19 09:09 Docusate Sodium (Colace) 100 mg THREE TIMES A DAY ORAL 12/27/19 13:00 01/20/20 08:59 12/28/19 17:10 Haloperidol (Haldol) 5 mg TID ORAL 12/27/19 13:00 02/04/20 13:59 12/30/19 12:05 Heparin Sodium (Porcine) (Heparin 5000 units/ml) 5,000 units EVERY 12 HOURS SUBQ 12/27/19 21:00 02/09/20 08:59 12/30/19 20:49 Hydralazine HCl (Apresoline) 10 mg Q4H PRN IV Blood pressure over 160 systol 12/27/19 12:45 03/24/20 16:37 Lorazepam (Ativan 2mg/ml 1ml) 1 mg Q4H PRN IV For Anxiety 12/27/19 12:45 01/01/20 16:37 12/29/19 22:55 Lorazepam (Ativan) 1 mg Q6H PRN ORAL Agitation 12/27/19 13:00 01/01/20 12:59 Magnesium Sulfate 100 ml @ 100 mls/hr Q1H IVPB 12/31/19 11:00 12/31/19 12:59 12/31/19 10:54 Pantoprazole (Protonix) 40 mg EVERY 12 HOURS IVP 12/27/19 21:00 01/24/20 20:59 12/31/19 09:55 Ziprasidone (Geodon) 40 mg Q12HR ORAL 12/27/19 21:00 02/04/20 20:59 12/31/19 09:08 Assessment/Plan Assessment/Plan IMPRESSION: 1. Confirmed COVID-19 pneumonia. 2. Hypernatremia. Improved 3. Psych disorder. 4. long-term resident. 5. E Coli bacteremia 6. Incarcerated hernia s/p repair DISCUSSION: Agree with current medications and care. Continue steroids. Continue medications. I will follow as director patient financial services. Abx per ID On 2L/min O2 Hector Hobson M.D. Hector Hobson MD Dec 31, 2019 11:54
[2019-12-31 12:00] VITALS: BP 96/66
--- NOTE | 2019-12-31 13:51 | General Progress Note ---
Assessment/Plan Problem List: (1) UTI (urinary tract infection) ICD Codes: N39.0 - Urinary tract infection, site not specified SNOMED: 80333042 (2) Malnutrition ICD Codes: E46 - Unspecified protein-calorie malnutrition SNOMED: 89325447 (3) Renal failure ICD Codes: N19 - Unspecified kidney failure SNOMED: 34020222 (4) HTN (hypertension) ICD Codes: I10 - Essential (primary) hypertension SNOMED: 85336584 (5) Hypoglycemia ICD Codes: E16.2 - Hypoglycemia, unspecified SNOMED: 582567094 (6) Hypernatremia ICD Codes: E87.0 - Hyperosmolality and hypernatremia SNOMED: 336394128 (7) Suspected 2019-nCoV infection ICD Codes: Z20.828 - Contact with and (suspected) exposure to other viral communicable diseases SNOMED: 578494717 Status: unchanged Assessment/Plan: o2 pulm tx abx pt diet cbc bmp am wound care dc to ltach if clear Subjective Constitutional: Reports: weakness Allergies: Coded Allergies: IBUPROFEN (Verified Allergy, Unknown, 12/20/19) All Systems: reviewed and negative except above Subjective o2nc calm Objective Last 24 Hour Vital Signs Date Time Temp Pulse Resp B/P (MAP) Pulse Ox O2 Delivery O2 Flow Rate FiO2 12/31/19 12:00 Nasal Cannula 2.0 Nasal Cannula 2.0 12/31/19 12:00 97.7 100 20 96/66 (76) 100 12/31/19 08:00 Nasal Cannula 2.0 Nasal Cannula 2.0 12/31/19 08:00 97.0 101 20 97/56 (70) 100 12/31/19 08:00 111 12/31/19 04:00 98.0 103 24 109/73 (85) 100 12/31/19 04:00 Nasal Cannula 2.0 Nasal Cannula 2.0 12/31/19 03:42 103 12/31/19 00:00 97.1 103 20 104/71 (82) 100 12/31/19 00:00 104 12/31/19 00:00 Nasal Cannula 2.0 Nasal Cannula 2.0 12/30/19 20:00 Nasal Cannula 2.0 Nasal Cannula 2.0 12/30/19 20:00 97.4 106 20 104/64 (77) 100 12/30/19 19:09 134 12/30/19 16:00 105 12/30/19 16:00 Room Air 2.0 Nasal Cannula 12/30/19 16:00 96.5 101 20 96/66 (76) 100 Intake and Output 12/30/19 12/31/19 19:00 07:00 Intake Total 1425 ml 821.2500 ml Output Total 700 ml Balance 725 ml 821.2500 ml Intake Oral 600 ml IV Total 825 ml 821.2500 ml Output Urine Total 700 ml # Bowel Movements 4 Laboratory Tests 12/30/19 16:43: POC Whole Blood Glucose 122H 12/30/19 20:46: POC Whole Blood Glucose 98 12/31/19 04:20: White Blood Count 9.1, Red Blood Count 2.74L, Hemoglobin 8.8L, Hematocrit 28.4L , Mean Corpuscular Volume 104H, Mean Corpuscular Hemoglobin 32.0H, Mean Corpuscular Hemoglobin Concent 30.9L, Red Cell Distribution Width 15.4H, Platelet Count 233, Mean Platelet Volume 6.0L, Neutrophils (%) (Auto) 52.9, Lymphocytes (%) (Auto) 35.3, Monocytes (%) (Auto) 8.7, Eosinophils (%) (Auto) 0.8, Basophils (%) (Auto) 2.3H, Sodium Level 150H, Potassium Level 3.8, Chloride Level 116H, Carbon Dioxide Level 26, Anion Gap 8, Blood Urea Nitrogen 9 , Creatinine 1.1, Estimat Glomerular Filtration Rate > 60, Glucose Level 80, Insulin Level [Pending], Uric Acid 5.8, Calcium Level 7.0L, Phosphorus Level 2.5 , Magnesium Level 1.7L, Total Bilirubin 0.2, Aspartate Amino Transf (AST/SGOT) 15, Alanine Aminotransferase (ALT/SGPT) 13, Alkaline Phosphatase 88, Total Protein 5.2L, Albumin 1.2L, Globulin 4.0, Albumin/Globulin Ratio 0.3L, Cortisol 12.0 12/31/19 05:29: POC Whole Blood Glucose 79 12/31/19 06:12: POC Whole Blood Glucose [Pending] 12/31/19 13:18: POC Whole Blood Glucose 68L 12/31/19 13:45: POC Whole Blood Glucose [Pending] Height (Feet): 5 Height (Inches): 4.00 Weight (Pounds): 155 General Appearance: lethargic EENT: PERRL/EOMI Neck: normal alignment Cardiovascular: normal rate, regular rhythm Respiratory/Chest: no respiratory distress, no accessory muscle use Extremities: normal range of motion Ricky Potter DO Dec 31, 2019 13:51
--- NOTE | 2019-12-31 14:30 | NUR ---
NURSE NOTES: Patient noted with discharge order to LTACH with additional instructions "with hospital meds and if clear by all." Contacted and spoke with Dr. Potter for clarification regarding discharge order and patient's situation. Patient currently noted with 25 mg/dL, gave D50 syringe PRN x 1, awaiting reassessment to inform Dr. Yang. Also currently per CM patient does not have bed for LTACH yet and is awaiting results of second COVID-19 swab results that was taken last night, 12/30/2019. Noted. Dr. Potter acknowledged. Will continue to monitor patient.
--- NOTE | 2019-12-31 14:48 | NUR ---
NURSE NOTES: Called and spoke with Dr. Yang regarding patient's episode of low blood sugar of 25 mg/dL, gave x 1 PRN D50% IV syringe, patient is on D10W at 75 ml/hr; reassessed blood glucose as 154 mg/dL. Dr. Yang acknowledge and gave no new orders at this time. Charge nurse aware. Will continue to monitor patient.
[2019-12-31 16:00] VITALS: BP 101/67
--- NOTE | 2019-12-31 17:11 | Cardiac Electrophysiology PN ---
Assessment/Plan Assessment/Plan 1. Hypotension. Due to dehydration and sepsis. Resolved. Echocardiogram EF 65% 2. Hypertension, on p.r.n. IV hydralazine. 3. Severe hypernatremia. Patient is on IV fluid per Dr. Pichardo.Na improved to 150 4. COVID-19 PNA in isolation. 2nd Covid from last night pending 5. K 6.0. Erroneous. Repeat 3.4 6. Incarcerated incisional ventral hernia and Bowel obstruction.S/P surgery by Dr Vargas. 7. S/P Respiratory failure, extubated 12/26/19 DW RN g Subjective Subjective In isolation for Covid positive in SDU. S/P incarcerated ventral hernia surgery 12/25/19. Alert in NAD. @nd Covid from last night is pending Objective Last 24 Hour Vital Signs Date Time Temp Pulse Resp B/P (MAP) Pulse Ox O2 Delivery O2 Flow Rate FiO2 12/31/19 16:00 Nasal Cannula 2.0 Nasal Cannula 2.0 12/31/19 16:00 97.2 110 20 101/67 (78) 100 12/31/19 12:00 Nasal Cannula 2.0 Nasal Cannula 2.0 12/31/19 12:00 100 12/31/19 12:00 97.7 100 20 96/66 (76) 100 12/31/19 08:00 Nasal Cannula 2.0 Nasal Cannula 2.0 12/31/19 08:00 97.0 101 20 97/56 (70) 100 12/31/19 08:00 111 12/31/19 04:00 98.0 103 24 109/73 (85) 100 12/31/19 04:00 Nasal Cannula 2.0 Nasal Cannula 2.0 12/31/19 03:42 103 12/31/19 00:00 97.1 103 20 104/71 (82) 100 12/31/19 00:00 104 12/31/19 00:00 Nasal Cannula 2.0 Nasal Cannula 2.0 12/30/19 20:00 Nasal Cannula 2.0 Nasal Cannula 2.0 12/30/19 20:00 97.4 106 20 104/64 (77) 100 12/30/19 19:09 134 Intake and Output 12/30/19 12/31/19 19:00 07:00 Intake Total 1425 ml 821.2500 ml Output Total 700 ml Balance 725 ml 821.2500 ml Intake Oral 600 ml IV Total 825 ml 821.2500 ml Output Urine Total 700 ml # Bowel Movements 4 Laboratory Tests Test 12/30/19 20:46 12/31/19 04:20 12/31/19 05:29 12/31/19 06:12 POC Whole Blood Glucose 98 MG/DL (74-106) 79 MG/DL (74-106) Pending White Blood Count 9.1 K/UL (4.8-10.8) Red Blood Count 2.74 M/UL (4.20-5.40) L Hemoglobin 8.8 G/DL (12.0-16.0) L Hematocrit 28.4 % (37.0-47.0) L Mean Corpuscular Volume 104 FL (80-99) H Mean Corpuscular Hemoglobin 32.0 PG (27.0-31.0) H Mean Corpuscular Hemoglobin Concent 30.9 G/DL (32.0-36.0) L Red Cell Distribution Width 15.4 % (11.6-14.8) H Platelet Count 233 K/UL (150-450) Mean Platelet Volume 6.0 FL (6.5-10.1) L Neutrophils (%) (Auto) 52.9 % (45.0-75.0) Lymphocytes (%) (Auto) 35.3 % (20.0-45.0) Monocytes (%) (Auto) 8.7 % (1.0-10.0) Eosinophils (%) (Auto) 0.8 % (0.0-3.0) Basophils (%) (Auto) 2.3 % (0.0-2.0) H Sodium Level 150 MMOL/L (136-145) H Potassium Level 3.8 MMOL/L (3.5-5.1) Chloride Level 116 MMOL/L (98-107) H Carbon Dioxide Level 26 MMOL/L (21-32) Anion Gap 8 mmol/L (5-15) Blood Urea Nitrogen 9 mg/dL (7-18) Creatinine 1.1 MG/DL (0.55-1.30) Estimat Glomerular Filtration Rate > 60 mL/min (>60) Glucose Level 80 MG/DL (74-106) Insulin Level Pending Uric Acid 5.8 MG/DL (2.6-7.2) Calcium Level 7.0 MG/DL (8.5-10.1) L Phosphorus Level 2.5 MG/DL (2.5-4.9) Magnesium Level 1.7 MG/DL (1.8-2.4) L Total Bilirubin 0.2 MG/DL (0.2-1.0) Aspartate Amino Transf (AST/SGOT) 15 U/L (15-37) Alanine Aminotransferase (ALT/SGPT) 13 U/L (12-78) Alkaline Phosphatase 88 U/L (46-116) Total Protein 5.2 G/DL (6.4-8.2) L Albumin 1.2 G/DL (3.4-5.0) L Globulin 4.0 g/dL Albumin/Globulin Ratio 0.3 (1.0-2.7) L Cortisol 12.0 UG/DL Test 12/31/19 13:18 12/31/19 13:45 12/31/19 13:51 12/31/19 14:36 POC Whole Blood Glucose 68 MG/DL (74-106) L 23 MG/DL (74-106) *L 25 MG/DL (74-106) *L 154 MG/DL (74-106) H Test 12/31/19 16:42 POC Whole Blood Glucose 53 MG/DL (74-106) L Objective HEAD AND NECK: No JVD. LUNGS: Coarse rhonchi. CARDIOVASCULAR: Regular S1, S2. ABDOMEN: Soft. S/P hernia surgery EXTREMITIES: No pitting edema. Steffen Mera MD Dec 31, 2019 17:11
--- NOTE | 2019-12-31 17:30 | Progress Note ---
DATE: 12/31/2019 SUBJECTIVE: This is a 54-year-old female patient with suspected COVID pneumonia and hernia. She also has medical illnesses such as renal failure, malnutrition, hypoglycemia, urinary tract infection, incarcerated ventral hernia, pneumonia, and febrile illness. All these medical problems are causing her to have a decline in cognition below her baseline. That is why, her attending has requested daily psychiatric consultation. MENTAL STATUS EXAMINATION: This is a 54-year-old female. Her appearance is disheveled. Attitude, irritable and agitated. Affect, guarded and restricted. Intellect, poor. Mood, depressed and anxious. Motor activity, psychomotor agitation. Insight and judgment is poor. DIAGNOSIS: Schizoaffective, bipolar type. PLAN: My plan for this patient is to treat her with the psychotropic medication regimen consisting of Ativan 1 mg every six hours p.r.n. anxiety or agitation, Geodon 40 mg q.12 hours, Haldol 5 mg three times a day, and Depakote 500 mg daily. 20 minutes of cognitive behavioral therapy will help her identify automatic negative thoughts and help her convert negative thoughts to more positive thoughts to reduce depression, anxiety, and mood lability. A 20 minutes of reality-based supportive psychotherapy provided. Chart reviewed. Discussed with staff. Seen and assessed at her bedside. Flip Burgos M.D. DR: NIMCO JOB#: [id number] CC:
--- NOTE | 2019-12-31 17:37 | NUR ---
NURSE NOTES: Patient again noted with blood sugar level of 54 mg/dL per scheduled 1630 Accuchek, gave D50% syringe PRN x 1, reassessed and blood sugar noted at 148 mg/dL. Patient is on D10W IVF at 75 ml/hr. Patient is alert and oriented x 2 noted with moments of confusion, no SOB noted, denies dizziness. Called and informed Dr. Yang of assessments and interventions, Dr. Yang acknowledged and gave no new orders at this time. Charge nurse aware. Will continue to monitor patient.
--- NOTE | 2019-12-31 17:56 | NUR ---
CASE MANAGEMENT: REVIEW SI: COVID-19 . PNEUMONIA . T 97.2 HR 110 RR 20 BP 96/66 SAT 100% NC/2L H/H 8.8/28.4 GLUCOSE 148 IS: CEFEPIME IV Q24HR PROTONIX IV Q12HR STEP DOWN UNIT STATUS DCP: CELSO MATTNORM. PATIENT REFERRED TO [facility]; NO COVID BEDS AVAILABLE. PATIENT REFERRED TO [facility]. PER [facility] / SAVANNAH PATIENT ACCEPTED IF COVID NEG. PENDING REPEAT COVID RESULTS.
--- NOTE | 2019-12-31 17:59 | NUR ---
CASE MANAGEMENT: DCP PATIENT IS FROM [facility]. ORDER TO DC TO [facility] NOTED. PATIENT REFERRED TO [facility]; PER SUDE[facility] [phone] NO COVID BEDS AVAILABLE. PATIENT REFERRED TO [facility]. PER LISET / PATIENT ACCEPTED IF COVID NEG. PENDING REPEAT COVID RESULTS.
--- NOTE | 2019-12-31 19:15 | NUR ---
NURSE NOTES: Received report from Jeffery Denis RN. Pt asleep in bed, febrile and no respiratory distress noted.On NC at 2lpm saturating at 97-98%. With left FA 22 IV line patent, flushed and asymptomatic. With left EJ intact, clean and asymptomatic. Skin assessment on wrist done. No skin changes noted. Needs were attended. HOB elevated. Call light within reach. Bed rails are up and wheels are locked. Continue plan of care for the patient
--- NOTE | 2019-12-31 19:36 | NUR ---
HAND-OFF: Report given to DOT Doug[place].
[2019-12-31 20:00] VITALS: BP 101/68
[2019-12-31] MEDS: Cefepime HCl 1 GM in D5W 55 ML IVPB SCH (20:51)
--- NOTE | 2019-12-31 21:31 | NUR ---
NURSE NOTES: Patient's blood glucose is 35. Asymptomatic. Patient able to respond back when making conversation, combative but able to calm down by offering watching Tv. Provided 2 cups of orange juice. Given D50/50 via IV. Left a Voice message to Dr Yang and made aware of the blood sugar. Charge nurse was made aware. Will recheck blood sugar. Continue to monitor the patient.
[2019-12-31] MEDS ORDERED: Tubing IV Secondary IV ONE ×2 (22:21→22:22)
[2019-12-31] MEDS ORDERED: NS 275ml ONE ×2 (22:21→22:22)
[2019-12-31] MEDS ORDERED: D5W 275ml ONE (22:22)
--- NOTE | 2019-12-31 22:30 | NUR ---
NURSE NOTES: Patient refused blood sugar check 15 Mins after D50/50 was give. Came back around 2200 and rechecked blood sugar, patient agreed. Blood sugar went up to 118. Pt is alert, calm and watching Tv. 0: Received a call back from Dr Yang. Made aware of the current blood sugar. Received and carried out order. Continue to monitor patient
[2020-01-01] VITALS: BP 102/70
--- NOTE | 2020-01-01 02:00 | NUR ---
NURSE NOTES: Patient provided 2 cups of orange juice and 1 cup of water as requested. Patient tolerated well without any discomforts. Patient went back to sleep afterwards.
[2020-01-01 04:00] VITALS: BP 115/75
--- NOTE | 2020-01-01 06:37 | General Progress Note ---
Assessment/Plan Problem List: (1) Suspected 2019-nCoV infection ICD Codes: Z20.828 - Contact with and (suspected) exposure to other viral communicable diseases SNOMED: 039891125 (2) Hypoglycemia ICD Codes: E16.2 - Hypoglycemia, unspecified SNOMED: 453579489 (3) Hypernatremia ICD Codes: E87.0 - Hyperosmolality and hypernatremia SNOMED: 787373186 (4) Atypical pneumonia ICD Codes: J18.9 - Pneumonia, unspecified organism SNOMED: 964787047 (5) Acute febrile illness ICD Codes: R50.9 - Fever, unspecified SNOMED: 281129052 Status: unchanged Assessment/Plan: recurrent hypoglycemia due to poor nutritional status as her Alb is very low no evidence of insulin oversecretion or adrenal insufficiency increase continue D10 rate to 100 cc/hour continue glucose monitoring without insulin coverage hypoglycemia protocol in order Subjective ROS Limited/Unobtainable: Yes Allergies: Coded Allergies: IBUPROFEN (Verified Allergy, Unknown, 12/20/19) Subjective events noted continues to have recurrence of hypoglycemia on D10 75 insulin level is not elevated cortisol level is normal she is very malnourished as her Alb is 1.0 Item Value Date Time Bedside Blood Glucose 35 mg/dl L 12/31/19 2110 Bedside Blood Glucose 148 mg/dl H 12/31/19 1734 Bedside Blood Glucose 154 mg/dl H 12/31/19 1436 Bedside Blood Glucose 80 mg/dl 12/31/19 0626 Objective Last 24 Hour Vital Signs Date Time Temp Pulse Resp B/P (MAP) Pulse Ox O2 Delivery O2 Flow Rate FiO2 01/01/20 04:00 98.1 110 20 115/75 (88) 100 01/01/20 04:00 Nasal Cannula 2.0 Nasal Cannula 2.0 01/01/20 03:36 93 01/01/20 00:00 Nasal Cannula 2.0 Nasal Cannula 2.0 01/01/20 00:00 98.2 96 20 102/70 (81) 100 12/31/19 23:37 109 12/31/19 20:00 104 12/31/19 20:00 97.5 105 20 101/68 (79) 100 12/31/19 20:00 Nasal Cannula 2.0 Nasal Cannula 2.0 12/31/19 16:00 Nasal Cannula 2.0 Nasal Cannula 2.0 12/31/19 16:00 109 12/31/19 16:00 97.2 110 20 101/67 (78) 100 12/31/19 12:00 Nasal Cannula 2.0 Nasal Cannula 2.0 12/31/19 12:00 100 12/31/19 12:00 97.7 100 20 96/66 (76) 100 12/31/19 08:00 Nasal Cannula 2.0 Nasal Cannula 2.0 12/31/19 08:00 97.0 101 20 97/56 (70) 100 12/31/19 08:00 111 Intake and Output 12/31/19 01/01/20 19:00 07:00 Intake Total 1375 ml 1613 ml Output Total 300 ml 900 ml Balance 1075 ml 713 ml Intake Oral 500 ml IV Total 875 ml 1073 ml Other 540 ml Output Urine Total 300 ml 900 ml # Voids 1 # Bowel Movements 1 2 Laboratory Tests 12/31/19 13:18: POC Whole Blood Glucose 68L 12/31/19 13:45: POC Whole Blood Glucose 23*L 12/31/19 13:51: POC Whole Blood Glucose 25*L 12/31/19 14:36: POC Whole Blood Glucose 154H 12/31/19 16:42: POC Whole Blood Glucose 53L 12/31/19 17:30: POC Whole Blood Glucose 148H 12/31/19 22:16: POC Whole Blood Glucose 118H 01/01/20 03:41: POC Whole Blood Glucose [Pending] 01/01/20 05:39: POC Whole Blood Glucose 75 Height (Feet): 5 Height (Inches): 4.00 Weight (Pounds): 168 General Appearance: no apparent distress Objective Current Medications Medications (Trade) Dose Ordered Sig/Venita Route PRN Reason Start Time Stop Time Status Last Admin Dose Admin Benztropine Mesylate (Cogentin) 2 mg BID ORAL 12/27/19 18:00 01/20/20 08:59 12/28/19 17:11 Cefepime HCl 1 gm/ Dextrose 55 ml @ 110 mls/hr Q24H IVPB 12/27/19 21:00 01/02/20 20:59 12/31/19 20:51 Dextrose 1,000 ml @ 100 mls/hr Q10H IV 12/31/19 23:00 01/30/20 22:59 12/31/19 22:37 Dextrose (Dextrose 50%) 25 ml Q30M PRN IV Hypoglycemia 12/29/19 11:15 01/28/20 11:07 Dextrose (Dextrose 50%) 50 ml Q30M PRN IV hypoglycemia 12/29/19 11:15 03/28/20 11:14 12/31/19 21:10 Divalproex Sodium (Depakote ER) 500 mg DAILY ORAL 12/28/19 09:00 01/20/20 08:59 12/31/19 09:09 Docusate Sodium (Colace) 100 mg THREE TIMES A DAY ORAL 12/27/19 13:00 01/20/20 08:59 12/28/19 17:10 Haloperidol (Haldol) 5 mg TID ORAL 12/27/19 13:00 02/04/20 13:59 12/30/19 12:05 Heparin Sodium (Porcine) (Heparin 5000 units/ml) 5,000 units EVERY 12 HOURS SUBQ 12/27/19 21:00 02/09/20 08:59 12/31/19 20:51 Hydralazine HCl (Apresoline) 10 mg Q4H PRN IV Blood pressure over 160 systol 12/27/19 12:45 03/24/20 16:37 Lorazepam (Ativan 2mg/ml 1ml) 1 mg Q4H PRN IV For Anxiety 12/27/19 12:45 01/01/20 16:37 12/29/19 22:55 Lorazepam (Ativan) 1 mg Q6H PRN ORAL Agitation 12/27/19 13:00 01/01/20 12:59 Pantoprazole (Protonix) 40 mg EVERY 12 HOURS IVP 12/27/19 21:00 01/24/20 20:59 12/31/19 20:49 Ziprasidone (Geodon) 40 mg Q12HR ORAL 12/27/19 21:00 02/04/20 20:59 12/31/19 20:48 Subhash Yang MD Jan 01, 2020 06:37
--- NOTE | 2020-01-01 07:10 | NUR ---
NURSE NOTES: Pt received from [facility] in stable condition without cardiopulmonary distress noted. Pt is awake, AAO x 1 to person, able to follow simple commands, combative, observed attempting to pull IV and NC when restrains removed. 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 Pt is on 4L O2 via NC with spO2 94%. Pt hooked to [employer] Transaction Serviceswick with yellow urine draining. Skin alterations noted. Pt has a LFA 22g IV running D10W at 100 cc/hr and a LEJ 18g IV saline-locked. BG checked at this time- noted 76. 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 Will continue to monitor pt. Per Elias, multiple RN and lab personnel attemtpted drawing labs for this morning without success- lab will reattempt this afternoon. Be follow up. Addendum: 01/01/20 at 1409 by Aurora Quinonez RN Late entry: Abd is round, soft, and non-tender with active bowel sounds to all quadrants.
--- NOTE | 2020-01-01 07:10 | NUR ---
HAND-OFF: Report given to Miesha Simon.
[2020-01-01 08:00] VITALS: BP 105/78
--- NOTE | 2020-01-01 08:08 | Hematology/Onc Progress Note ---
Assessment/Plan Assessment/Plan Assessment and recs # Thrombocytopenia - potential causes multifactorial, evaluate liver and viral etiologies to begin, also could be related to underlying medications patient has received. covid19++ also s/p ventral hernia repair --> Hep panel and HIV ordered --> US abd to evaluate for cirrhosis and hsm ordered --> Peripheral smear ordered to evaluate for blasts /schistocytes --> abx and other meds have been reviewed --> ok for ppx if plt >50k w/ either heparin or lovenox --> Transfuse if Plt < 20k and fever, or if Plt < 10k without fever --> plt 143-->115-->98->125->220 --> abx ctx # Anemia of iron deficiency, unspecified rule out gi bleed --> obtain a anemia panel, has been ordered --> will/have begun on iv iron and continue x 5 doses --> review if occult blood is + (review this to make sure +). Can consider gi eval --> hgb goal is >7, transfuse as needed --> trend CBC daily to make sure no major acute drop --> no evidence of hemolysis noted --> hgb 8-->8.5->10.4->10->8.8 # Coagulopathy likely due to covid19++ in adition to vit k depletion --> have jamilah Vargas, will give ffp and vitk --> recheck inr / ptt after surgery-->improved # Acute febrile illness due to covid19+++ --> due to Suspected 2019-nCoV infection -> on abx --> steriods ahve been given # Atypical pneumonia # Hernia, ventral --> sp surgical repair and revision 12/24 # Hypernatremia # Hypoglycemia # E..coli sepsis # COVID 19 pneumonia # Hypertension # renal failure # Bipolar disorder # Asthma # Dvt ppx heparin sq The timing of this note does not necessarily reflect the time of the patient was seen. Greatly appreciate consultation. Subjective Constitutional: Denies: no symptoms, chills, fever, malaise, weakness, other HEENT: Denies: no symptoms, eye pain, blurred vision, tearing, double vision, ear pain, ear discharge, nose pain, nose congestion, throat pain, throat swelling, mouth pain, mouth swelling, other Cardiovascular: Denies: no symptoms, chest pain, edema, irregular heart rate, lightheadedness, palpitations, syncope, other Respiratory: Denies: no symptoms, cough, shortness of breath, SOB with excertion, SOB at rest, sputum, wheezing, other Gastrointestinal/Abdominal: Denies: no symptoms, abdomen distended, abdominal pain, black stools, tarry stools, blood in stool, constipated, diarrhea, difficulty swallowing, nausea, poor appetite, poor fluid intake, rectal bleeding , vomiting, other Endocrine: Denies: no symptoms, excessive sweating, flushing, intolerance to cold, intolerance to heat, increased hunger, increased thirst, increased urine, unexplained weight gain, unexplained weight loss, other Allergies: Coded Allergies: IBUPROFEN (Verified Allergy, Unknown, 12/20/19) Subjective 12/24 abdominal mild pain with ttp, to see by surg for discussion re surgery today 12/25 intubated, no bleeding, meds reviewed, labs noted, dw ID 12/26 extubate,d no bleeding, meds noted, surgical site c/d/i, feeling better 12/28 on nc, improved, labs noted, hgb recovering 12/29 labs reviewed, on nc, no bleeding hgb 10 12/30 meds are noted, no bleeding, hgb 8.8, no hemolysis 12/31 asymptomatic, is on 2l nc, no bleeding, labs pending Objective Objective Current Medications Medications (Trade) Dose Ordered Sig/Venita Route PRN Reason Start Time Stop Time Status Last Admin Dose Admin Benztropine Mesylate (Cogentin) 2 mg BID ORAL 12/27/19 18:00 01/20/20 08:59 12/28/19 17:11 Cefepime HCl 1 gm/ Dextrose 55 ml @ 110 mls/hr Q24H IVPB 12/27/19 21:00 01/02/20 20:59 12/31/19 20:51 Dextrose 1,000 ml @ 100 mls/hr Q10H IV 12/31/19 23:00 01/30/20 22:59 12/31/19 22:37 Dextrose (Dextrose 50%) 25 ml Q30M PRN IV Hypoglycemia 12/29/19 11:15 01/28/20 11:07 Dextrose (Dextrose 50%) 50 ml Q30M PRN IV hypoglycemia 12/29/19 11:15 03/28/20 11:14 12/31/19 21:10 Divalproex Sodium (Depakote ER) 500 mg DAILY ORAL 12/28/19 09:00 01/20/20 08:59 12/31/19 09:09 Docusate Sodium (Colace) 100 mg THREE TIMES A DAY ORAL 12/27/19 13:00 01/20/20 08:59 12/28/19 17:10 Haloperidol (Haldol) 5 mg TID ORAL 12/27/19 13:00 02/04/20 13:59 12/30/19 12:05 Heparin Sodium (Porcine) (Heparin 5000 units/ml) 5,000 units EVERY 12 HOURS SUBQ 12/27/19 21:00 02/09/20 08:59 12/31/19 20:51 Hydralazine HCl (Apresoline) 10 mg Q4H PRN IV Blood pressure over 160 systol 12/27/19 12:45 03/24/20 16:37 Lorazepam (Ativan 2mg/ml 1ml) 1 mg Q4H PRN IV For Anxiety 12/27/19 12:45 01/01/20 16:37 12/29/19 22:55 Lorazepam (Ativan) 1 mg Q6H PRN ORAL Agitation 12/27/19 13:00 01/01/20 12:59 Pantoprazole (Protonix) 40 mg EVERY 12 HOURS IVP 12/27/19 21:00 01/24/20 20:59 12/31/19 20:49 Ziprasidone (Geodon) 40 mg Q12HR ORAL 12/27/19 21:00 02/04/20 20:59 12/31/19 20:48 Last 24 Hour Vital Signs Date Time Temp Pulse Resp B/P (MAP) Pulse Ox O2 Delivery O2 Flow Rate FiO2 01/01/20 04:00 98.1 110 20 115/75 (88) 100 01/01/20 04:00 Nasal Cannula 2.0 Nasal Cannula 2.0 01/01/20 03:36 93 01/01/20 00:00 Nasal Cannula 2.0 Nasal Cannula 2.0 01/01/20 00:00 98.2 96 20 102/70 (81) 100 12/31/19 23:37 109 12/31/19 20:00 104 12/31/19 20:00 97.5 105 20 101/68 (79) 100 12/31/19 20:00 Nasal Cannula 2.0 Nasal Cannula 2.0 12/31/19 16:00 Nasal Cannula 2.0 Nasal Cannula 2.0 12/31/19 16:00 109 12/31/19 16:00 97.2 110 20 101/67 (78) 100 12/31/19 12:00 Nasal Cannula 2.0 Nasal Cannula 2.0 12/31/19 12:00 100 12/31/19 12:00 97.7 100 20 96/66 (76) 100 12/31/19 08:00 Nasal Cannula 2.0 Nasal Cannula 2.0 12/31/19 08:00 97.0 101 20 97/56 (70) 100 12/31/19 08:00 111 12/31/19 04:00 98.0 103 24 109/73 (85) 100 12/31/19 04:00 Nasal Cannula 2.0 Nasal Cannula 2.0 12/31/19 03:42 103 12/31/19 00:00 97.1 103 20 104/71 (82) 100 12/31/19 00:00 104 12/31/19 00:00 Nasal Cannula 2.0 Nasal Cannula 2.0 12/30/19 20:00 Nasal Cannula 2.0 Nasal Cannula 2.0 12/30/19 20:00 97.4 106 20 104/64 (77) 100 12/30/19 19:09 134 12/30/19 16:00 105 12/30/19 16:00 Room Air 2.0 Nasal Cannula 12/30/19 16:00 96.5 101 20 96/66 (76) 100 12/30/19 12:00 97.5 102 20 102/65 (77) 100 12/30/19 12:00 Room Air 2.0 Nasal Cannula 12/30/19 12:00 98 Intake and Output 12/31/19 01/01/20 19:00 07:00 Intake Total 1375 ml 1746 ml Output Total 300 ml 900 ml Balance 1075 ml 846 ml Intake Oral 500 ml IV Total 875 ml 1206 ml Other 540 ml Output Urine Total 300 ml 900 ml # Voids 1 # Bowel Movements 1 2 Labs Test 12/29/19 09:24 12/29/19 10:20 12/29/19 12:49 12/29/19 15:53 White Blood Count 8.9 K/UL (4.8-10.8) Red Blood Count 3.27 M/UL (4.20-5.40) Hemoglobin 10.4 G/DL (12.0-16.0) Hematocrit 34.5 % (37.0-47.0) Mean Corpuscular Volume 105 FL (80-99) Mean Corpuscular Hemoglobin 31.6 PG (27.0-31.0) Mean Corpuscular Hemoglobin Concent 30.0 G/DL (32.0-36.0) Red Cell Distribution Width 15.9 % (11.6-14.8) Platelet Count 220 K/UL (150-450) Mean Platelet Volume 6.2 FL (6.5-10.1) Neutrophils (%) (Auto) 59.6 % (45.0-75.0) Lymphocytes (%) (Auto) 30.7 % (20.0-45.0) Monocytes (%) (Auto) 8.5 % (1.0-10.0) Eosinophils (%) (Auto) 0.3 % (0.0-3.0) Basophils (%) (Auto) 0.9 % (0.0-2.0) Sodium Level 152 MMOL/L (136-145) Potassium Level 4.1 MMOL/L (3.5-5.1) Chloride Level 118 MMOL/L (98-107) Carbon Dioxide Level 27 MMOL/L (21-32) Anion Gap 7 mmol/L (5-15) Blood Urea Nitrogen 10 mg/dL (7-18) Creatinine 1.2 MG/DL (0.55-1.30) Estimat Glomerular Filtration Rate 57.0 mL/min (>60) Glucose Level 111 MG/DL (74-106) Calcium Level 7.2 MG/DL (8.5-10.1) Phosphorus Level 2.7 MG/DL (2.5-4.9) Magnesium Level 1.8 MG/DL (1.8-2.4) Total Bilirubin 0.4 MG/DL (0.2-1.0) Aspartate Amino Transf (AST/SGOT) 22 U/L (15-37) Alanine Aminotransferase (ALT/SGPT) 10 U/L (12-78) Alkaline Phosphatase 94 U/L (46-116) Total Protein 5.6 G/DL (6.4-8.2) Albumin 1.1 G/DL (3.4-5.0) Globulin 4.5 g/dL Albumin/Globulin Ratio 0.2 (1.0-2.7) Test 12/29/19 21:45 12/29/19 23:02 12/30/19 04:31 12/30/19 06:04 POC Whole Blood Glucose 43 MG/DL (74-106) 129 MG/DL (74-106) 31 MG/DL (74-106) White Blood Count 9.9 K/UL (4.8-10.8) Red Blood Count 3.16 M/UL (4.20-5.40) Hemoglobin 10.0 G/DL (12.0-16.0) Hematocrit 33.6 % (37.0-47.0) Mean Corpuscular Volume 106 FL (80-99) Mean Corpuscular Hemoglobin 31.6 PG (27.0-31.0) Mean Corpuscular Hemoglobin Concent 29.8 G/DL (32.0-36.0) Red Cell Distribution Width 15.7 % (11.6-14.8) Platelet Count 191 K/UL (150-450) Mean Platelet Volume 5.4 FL (6.5-10.1) Neutrophils (%) (Auto) 45.1 % (45.0-75.0) Lymphocytes (%) (Auto) 43.0 % (20.0-45.0) Monocytes (%) (Auto) 10.3 % (1.0-10.0) Eosinophils (%) (Auto) 0.2 % (0.0-3.0) Basophils (%) (Auto) 1.3 % (0.0-2.0) Sodium Level 150 MMOL/L (136-145) Potassium Level 4.0 MMOL/L (3.5-5.1) Chloride Level 117 MMOL/L (98-107) Carbon Dioxide Level 25 MMOL/L (21-32) Anion Gap 8 mmol/L (5-15) Blood Urea Nitrogen 8 mg/dL (7-18) Creatinine 1.2 MG/DL (0.55-1.30) Estimat Glomerular Filtration Rate 57.0 mL/min (>60) Glucose Level 61 MG/DL (74-106) Calcium Level 7.0 MG/DL (8.5-10.1) Test 12/30/19 06:05 12/30/19 07:49 12/30/19 11:59 12/30/19 16:43 POC Whole Blood Glucose 27 MG/DL (74-106) 108 MG/DL (74-106) 92 MG/DL (74-106) 122 MG/DL (74-106) Test 12/30/19 20:46 12/31/19 04:20 12/31/19 05:29 12/31/19 06:12 POC Whole Blood Glucose 98 MG/DL (74-106) 79 MG/DL (74-106) White Blood Count 9.1 K/UL (4.8-10.8) Red Blood Count 2.74 M/UL (4.20-5.40) Hemoglobin 8.8 G/DL (12.0-16.0) Hematocrit 28.4 % (37.0-47.0) Mean Corpuscular Volume 104 FL (80-99) Mean Corpuscular Hemoglobin 32.0 PG (27.0-31.0) Mean Corpuscular Hemoglobin Concent 30.9 G/DL (32.0-36.0) Red Cell Distribution Width 15.4 % (11.6-14.8) Platelet Count 233 K/UL (150-450) Mean Platelet Volume 6.0 FL (6.5-10.1) Neutrophils (%) (Auto) 52.9 % (45.0-75.0) Lymphocytes (%) (Auto) 35.3 % (20.0-45.0) Monocytes (%) (Auto) 8.7 % (1.0-10.0) Eosinophils (%) (Auto) 0.8 % (0.0-3.0) Basophils (%) (Auto) 2.3 % (0.0-2.0) Sodium Level 150 MMOL/L (136-145) Potassium Level 3.8 MMOL/L (3.5-5.1) Chloride Level 116 MMOL/L (98-107) Carbon Dioxide Level 26 MMOL/L (21-32) Anion Gap 8 mmol/L (5-15) Blood Urea Nitrogen 9 mg/dL (7-18) Creatinine 1.1 MG/DL (0.55-1.30) Estimat Glomerular Filtration Rate > 60 mL/min (>60) Glucose Level 80 MG/DL (74-106) Insulin Level 2.1 uIU/mL (2.6-24.9) Uric Acid 5.8 MG/DL (2.6-7.2) Calcium Level 7.0 MG/DL (8.5-10.1) Phosphorus Level 2.5 MG/DL (2.5-4.9) Magnesium Level 1.7 MG/DL (1.8-2.4) Total Bilirubin 0.2 MG/DL (0.2-1.0) Aspartate Amino Transf (AST/SGOT) 15 U/L (15-37) Alanine Aminotransferase (ALT/SGPT) 13 U/L (12-78) Alkaline Phosphatase 88 U/L (46-116) Total Protein 5.2 G/DL (6.4-8.2) Albumin 1.2 G/DL (3.4-5.0) Globulin 4.0 g/dL Albumin/Globulin Ratio 0.3 (1.0-2.7) Cortisol 12.0 UG/DL Test 12/31/19 13:18 12/31/19 13:45 12/31/19 13:51 12/31/19 14:36 POC Whole Blood Glucose 68 MG/DL (74-106) 23 MG/DL (74-106) 25 MG/DL (74-106) 154 MG/DL (74-106) Test 12/31/19 16:42 12/31/19 17:30 12/31/19 22:16 01/01/20 03:41 POC Whole Blood Glucose 53 MG/DL (74-106) 148 MG/DL (74-106) 118 MG/DL (74-106) Test 01/01/20 05:39 POC Whole Blood Glucose 75 MG/DL (74-106) Height (Feet): 5 Height (Inches): 4.00 Weight (Pounds): 168 Objective Physical Exam: Vitals: reviewed General: NAD HEENT: nc, at Neck: supple Chest: clear breath sounds bilaterally+ nc Cardiovascular: RRR, no s3, s4 Abdomen: soft, nontender, ttp in upper quands, abd surgical scar c/d/i Extremities: no cce, normal range of motion Neuro: alert and oriented Kleynberg,Charanjit L. MD Jan 01, 2020 08:08
--- NOTE | 2020-01-01 09:07 | NUR ---
RD ASSESSMENT & RECOMMENDATIONS SEE CARE ACTIVITY FOR COMPLETE ASSESSMENT DAILY ESTIMATED NEEDS: Needs based on cardiac, surgery 58.4kg abw 25-30 kcals/kg 5163-3209 total kcals 1.25- 2 g protein/kg 73-116 g total protein 25-30 mL/kg 4095-3759 total fluid mLs NUTRITION DIAGNOSIS: * Altered nutrition related lab values r/t clinical status, as evidenced by critically elev Na on adm (167*-> 169*), elev BUN and creat (22-> wnl, 1.9-> 1.5 respectively), elev BNP (1113 -> 2133). * Increased kcal/prot needs R/T wound healing and surgery as evidenced by pt admitted w/ wounds including full thickness wound @ lower L buttocks and DTPI @ L heel, s/p open incarcerated ventral hernia incisional repair CURRENT DIET:IRVING puree PO DIET RECOMMENDATIONS: Advance diet per surgeon -> SOFT/ LOW NA ADDITIONAL RECOMMENDATIONS: 1) Calibrated bedscale wt 2) Wound healing: Add MVI x 1, Vit C 500mg QD, ZnSO4 220mg QD x 10 days Javed 1pkt BID as tolerated 3) Offer 4 oz juice hourly as able w/ POC as per endo. With poor intake of juice, rec added d5 4) Monitor hydration status: Na critically elevated, now improved (155) 5) Monitor PO acceptance and tolerance, good intake
[2020-01-01] MEDS: Docusate 100mg/10ml Liq ORAL SCH ×3 (09:10→17:29)
[2020-01-01] MEDS: Ziprasidone 20mg cap ORAL SCH ×2 (09:10→20:53)
[2020-01-01] MEDS: Benztropine 1mg tab ORAL SCH ×2 (09:10→17:29)
[2020-01-01] MEDS: Dextrose 10% 1,000 ML IV SCH ×2 (09:10→18:01)
[2020-01-01] MEDS: Pantoprazole Inj IVP SCH ×2 (09:10→20:53)
[2020-01-01] MEDS: Depakote 125mg Sprinkles ORAL SCH ×2 (09:11→20:53)
[2020-01-01] MEDS: Heparin 5000 units/ml inj SUBQ SCH ×2 (09:12→20:55)
--- NOTE | 2020-01-01 09:12 | General Progress Note ---
Assessment/Plan Problem List: (1) UTI (urinary tract infection) ICD Codes: N39.0 - Urinary tract infection, site not specified SNOMED: 11917770 (2) Malnutrition ICD Codes: E46 - Unspecified protein-calorie malnutrition SNOMED: 70843987 (3) Renal failure ICD Codes: N19 - Unspecified kidney failure SNOMED: 78265397 (4) HTN (hypertension) ICD Codes: I10 - Essential (primary) hypertension SNOMED: 84666764 (5) Hypoglycemia ICD Codes: E16.2 - Hypoglycemia, unspecified SNOMED: 009957498 (6) Hypernatremia ICD Codes: E87.0 - Hyperosmolality and hypernatremia SNOMED: 994495871 (7) Suspected 2019-nCoV infection ICD Codes: Z20.828 - Contact with and (suspected) exposure to other viral communicable diseases SNOMED: 727306485 Status: unchanged Assessment/Plan: o2 pulm tx abx pt diet cbc bmp am wound care dc to ltach if clear Subjective Constitutional: Reports: weakness Allergies: Coded Allergies: IBUPROFEN (Verified Allergy, Unknown, 12/20/19) All Systems: reviewed and negative except above Subjective calm in bed Objective Last 24 Hour Vital Signs Date Time Temp Pulse Resp B/P (MAP) Pulse Ox O2 Delivery O2 Flow Rate FiO2 01/01/20 04:00 98.1 110 20 115/75 (88) 100 01/01/20 04:00 Nasal Cannula 2.0 Nasal Cannula 2.0 01/01/20 03:36 93 01/01/20 00:00 Nasal Cannula 2.0 Nasal Cannula 2.0 01/01/20 00:00 98.2 96 20 102/70 (81) 100 12/31/19 23:37 109 12/31/19 20:00 104 12/31/19 20:00 97.5 105 20 101/68 (79) 100 12/31/19 20:00 Nasal Cannula 2.0 Nasal Cannula 2.0 12/31/19 16:00 Nasal Cannula 2.0 Nasal Cannula 2.0 12/31/19 16:00 109 12/31/19 16:00 97.2 110 20 101/67 (78) 100 12/31/19 12:00 Nasal Cannula 2.0 Nasal Cannula 2.0 12/31/19 12:00 100 12/31/19 12:00 97.7 100 20 96/66 (76) 100 Intake and Output 12/31/19 01/01/20 19:00 07:00 Intake Total 1375 ml 1746 ml Output Total 300 ml 900 ml Balance 1075 ml 846 ml Intake Oral 500 ml IV Total 875 ml 1206 ml Other 540 ml Output Urine Total 300 ml 900 ml # Voids 1 # Bowel Movements 1 2 Laboratory Tests 12/31/19 13:18: POC Whole Blood Glucose 68L 12/31/19 13:45: POC Whole Blood Glucose 23*L 12/31/19 13:51: POC Whole Blood Glucose 25*L 12/31/19 14:36: POC Whole Blood Glucose 154H 12/31/19 16:42: POC Whole Blood Glucose 53L 12/31/19 17:30: POC Whole Blood Glucose 148H 12/31/19 22:16: POC Whole Blood Glucose 118H 01/01/20 03:41: POC Whole Blood Glucose [Pending] 01/01/20 05:39: POC Whole Blood Glucose 75 Height (Feet): 5 Height (Inches): 4.00 Weight (Pounds): 168 General Appearance: lethargic EENT: normal ENT inspection Neck: normal alignment Cardiovascular: normal rate, regular rhythm Respiratory/Chest: no respiratory distress, no accessory muscle use Extremities: normal inspection Skin: normal pigmentation Ricky Potter DO Jan 01, 2020 09:12
--- NOTE | 2020-01-01 09:51 | Pulmonology Progress Note ---
Subjective ROS Limited/Unobtainable: Yes Interval Events: Extubated on 12/27/19 Constitutional: Denies: fever, chills HEENT: Repors: no symptoms Respiratory: Reports: no symptoms Cardiovascular: Reports: no symptoms Gastrointestinal/Abdominal: Denies: nausea, vomiting, diarrhea Genitourinary: Reports: no symptoms Neurologic: Reports: no symptoms Musculoskeletal: Denies: pain Allergies: Coded Allergies: IBUPROFEN (Verified Allergy, Unknown, 12/20/19) All Systems: reviewed and negative except above Objective Last 24 Hour Vital Signs Date Time Temp Pulse Resp B/P (MAP) Pulse Ox O2 Delivery O2 Flow Rate FiO2 01/01/20 04:00 98.1 110 20 115/75 (88) 100 01/01/20 04:00 Nasal Cannula 2.0 Nasal Cannula 2.0 01/01/20 03:36 93 01/01/20 00:00 Nasal Cannula 2.0 Nasal Cannula 2.0 01/01/20 00:00 98.2 96 20 102/70 (81) 100 12/31/19 23:37 109 12/31/19 20:00 104 12/31/19 20:00 97.5 105 20 101/68 (79) 100 12/31/19 20:00 Nasal Cannula 2.0 Nasal Cannula 2.0 12/31/19 16:00 Nasal Cannula 2.0 Nasal Cannula 2.0 12/31/19 16:00 109 12/31/19 16:00 97.2 110 20 101/67 (78) 100 12/31/19 12:00 Nasal Cannula 2.0 Nasal Cannula 2.0 12/31/19 12:00 100 12/31/19 12:00 97.7 100 20 96/66 (76) 100 Intake and Output 12/31/19 01/01/20 19:00 07:00 Intake Total 1375 ml 1746 ml Output Total 300 ml 900 ml Balance 1075 ml 846 ml Intake Oral 500 ml IV Total 875 ml 1206 ml Other 540 ml Output Urine Total 300 ml 900 ml # Voids 1 # Bowel Movements 1 2 General Appearance: no acute distress HEENT: normocephalic Respiratory: chest wall non-tender Cardiovascular: normal peripheral pulses, normal rate Abdomen: normal bowel sounds Extremities: no cyanosis Microbiology Date/Time Source Procedure Growth Status 12/31/19 00:00 Nasopharynx Coronavirus COVID-19 PCR ([facility]) - Final Complete Laboratory Tests 12/31/19 13:18: POC Whole Blood Glucose 68L 12/31/19 13:45: POC Whole Blood Glucose 23*L 12/31/19 13:51: POC Whole Blood Glucose 25*L 12/31/19 14:36: POC Whole Blood Glucose 154H 12/31/19 16:42: POC Whole Blood Glucose 53L 12/31/19 17:30: POC Whole Blood Glucose 148H 12/31/19 22:16: POC Whole Blood Glucose 118H 01/01/20 03:41: POC Whole Blood Glucose [Pending] 01/01/20 05:39: POC Whole Blood Glucose 75 Current Medications Medications (Trade) Dose Ordered Sig/Venita Route PRN Reason Start Time Stop Time Status Last Admin Dose Admin Benztropine Mesylate (Cogentin) 2 mg BID ORAL 12/27/19 18:00 01/20/20 08:59 01/01/20 09:10 Cefepime HCl 1 gm/ Dextrose 55 ml @ 110 mls/hr Q24H IVPB 12/27/19 21:00 01/02/20 20:59 12/31/19 20:51 Dextrose 1,000 ml @ 100 mls/hr Q10H IV 12/31/19 23:00 01/30/20 22:59 01/01/20 09:10 Dextrose (Dextrose 50%) 25 ml Q30M PRN IV Hypoglycemia 12/29/19 11:15 01/28/20 11:07 Dextrose (Dextrose 50%) 50 ml Q30M PRN IV hypoglycemia 12/29/19 11:15 03/28/20 11:14 12/31/19 21:10 Divalproex Sodium (Depakote Sprinkles) 250 mg Q12HR ORAL 01/01/20 09:00 01/31/20 08:59 01/01/20 09:11 Docusate Sodium (Colace) 100 mg THREE TIMES A DAY ORAL 01/01/20 09:00 01/31/20 08:59 01/01/20 09:10 Haloperidol (Haldol) 5 mg TID ORAL 12/27/19 13:00 02/04/20 13:59 01/01/20 09:10 Heparin Sodium (Porcine) (Heparin 5000 units/ml) 5,000 units EVERY 12 HOURS SUBQ 12/27/19 21:00 02/09/20 08:59 01/01/20 09:12 Hydralazine HCl (Apresoline) 10 mg Q4H PRN IV Blood pressure over 160 systol 12/27/19 12:45 03/24/20 16:37 Lorazepam (Ativan 2mg/ml 1ml) 1 mg Q4H PRN IV For Anxiety 12/27/19 12:45 01/01/20 16:37 12/29/19 22:55 Lorazepam (Ativan) 1 mg Q6H PRN ORAL Agitation 12/27/19 13:00 01/01/20 12:59 Pantoprazole (Protonix) 40 mg EVERY 12 HOURS IVP 12/27/19 21:00 01/24/20 20:59 01/01/20 09:10 Ziprasidone (Geodon) 40 mg Q12HR ORAL 12/27/19 21:00 02/04/20 20:59 01/01/20 09:10 Assessment/Plan Assessment/Plan IMPRESSION: 1. Confirmed COVID-19 pneumonia. 2. Hypernatremia. Improved 3. Psych disorder. 4. assisted resident. 5. E Coli bacteremia 6. Incarcerated hernia s/p repair DISCUSSION: Agree with current medications and care. Continue steroids. Continue medications. 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 Abx per ID On 2L/min O2 Roberta Manzo Omar Syed MD Jan 01, 2020 09:51
--- NOTE | 2020-01-01 10:42 | Infectious Diseases Prog Note ---
Assessment/Plan Assessment/Plan antibiotics : cefepime A 1. e.coli sepsis s/p rx 2. COVID 19 pneumonia on 2 liters, 100 percent saturation 3. incarcerated hernia s/p repair with mesh, lysis of adhesions 4. hypertension 5. renal failure 6. bipolar disorder 7. asthma 8. pseudomonas UTI s/p rx 9. head lice s/p permethrin shampoo P 1, d/c cefepime 2. continue isolation 3. will follow up cultures 4, observe off antibiotics Subjective Constitutional: Denies: fever, chills Respiratory: Denies: shortness of breath, dry cough Gastrointestinal/Abdominal: Denies: nausea, vomiting, diarrhea Musculoskeletal: Denies: pain Allergies: Coded Allergies: IBUPROFEN (Verified Allergy, Unknown, 12/20/19) Objective Last 24 Hour Vital Signs Date Time Temp Pulse Resp B/P (MAP) Pulse Ox O2 Delivery O2 Flow Rate FiO2 01/01/20 04:00 98.1 110 20 115/75 (88) 100 01/01/20 04:00 Nasal Cannula 2.0 Nasal Cannula 2.0 01/01/20 03:36 93 01/01/20 00:00 Nasal Cannula 2.0 Nasal Cannula 2.0 01/01/20 00:00 98.2 96 20 102/70 (81) 100 12/31/19 23:37 109 12/31/19 20:00 104 12/31/19 20:00 97.5 105 20 101/68 (79) 100 12/31/19 20:00 Nasal Cannula 2.0 Nasal Cannula 2.0 12/31/19 16:00 Nasal Cannula 2.0 Nasal Cannula 2.0 12/31/19 16:00 109 12/31/19 16:00 97.2 110 20 101/67 (78) 100 12/31/19 12:00 Nasal Cannula 2.0 Nasal Cannula 2.0 12/31/19 12:00 100 12/31/19 12:00 97.7 100 20 96/66 (76) 100 Height (Feet): 5 Height (Inches): 4.00 Weight (Pounds): 168 Microbiology Date/Time Source Procedure Growth Status 12/31/19 00:00 Nasopharynx Coronavirus COVID-19 PCR ([facility]) - Final Complete Laboratory Tests Test 12/31/19 13:18 12/31/19 13:45 12/31/19 13:51 12/31/19 14:36 POC Whole Blood Glucose 68 MG/DL (74-106) L 23 MG/DL (74-106) *L 25 MG/DL (74-106) *L 154 MG/DL (74-106) H Test 12/31/19 16:42 12/31/19 17:30 12/31/19 22:16 01/01/20 03:41 POC Whole Blood Glucose 53 MG/DL (74-106) L 148 MG/DL (74-106) H 118 MG/DL (74-106) H Pending Test 01/01/20 05:39 POC Whole Blood Glucose 75 MG/DL (74-106) Current Medications Medications (Trade) Dose Ordered Sig/Venita Route PRN Reason Start Time Stop Time Status Last Admin Dose Admin Benztropine Mesylate (Cogentin) 2 mg BID ORAL 12/27/19 18:00 01/20/20 08:59 01/01/20 09:10 Cefepime HCl 1 gm/ Dextrose 55 ml @ 110 mls/hr Q24H IVPB 12/27/19 21:00 01/02/20 20:59 12/31/19 20:51 Dextrose 1,000 ml @ 100 mls/hr Q10H IV 12/31/19 23:00 01/30/20 22:59 01/01/20 09:10 Dextrose (Dextrose 50%) 25 ml Q30M PRN IV Hypoglycemia 12/29/19 11:15 01/28/20 11:07 Dextrose (Dextrose 50%) 50 ml Q30M PRN IV hypoglycemia 12/29/19 11:15 03/28/20 11:14 12/31/19 21:10 Divalproex Sodium (Depakote Sprinkles) 250 mg Q12HR ORAL 01/01/20 09:00 01/31/20 08:59 01/01/20 09:11 Docusate Sodium (Colace) 100 mg THREE TIMES A DAY ORAL 01/01/20 09:00 01/31/20 08:59 01/01/20 09:10 Haloperidol (Haldol) 5 mg TID ORAL 12/27/19 13:00 02/04/20 13:59 01/01/20 09:10 Heparin Sodium (Porcine) (Heparin 5000 units/ml) 5,000 units EVERY 12 HOURS SUBQ 12/27/19 21:00 02/09/20 08:59 01/01/20 09:12 Hydralazine HCl (Apresoline) 10 mg Q4H PRN IV Blood pressure over 160 systol 12/27/19 12:45 03/24/20 16:37 Lorazepam (Ativan 2mg/ml 1ml) 1 mg Q4H PRN IV For Anxiety 12/27/19 12:45 01/01/20 16:37 12/29/19 22:55 Lorazepam (Ativan) 1 mg Q6H PRN ORAL Agitation 12/27/19 13:00 01/01/20 12:59 Pantoprazole (Protonix) 40 mg EVERY 12 HOURS IVP 12/27/19 21:00 01/24/20 20:59 01/01/20 09:10 Ziprasidone (Geodon) 40 mg Q12HR ORAL 12/27/19 21:00 02/04/20 20:59 01/01/20 09:10 Penny Montague MD Jan 01, 2020 10:42
[2020-01-01 12:00] VITALS: BP 114/97
[2020-01-01 12:03] LABS: BASOPHILS % (AUTO) 0.9 % (0.0-2.0); EOSINOPHILS % (AUTO) 0.1 % (0.0-3.0); HEMATOCRIT 29.9 % (37.0-47.0); HEMOGLOBIN 9.2 G/DL (12.0-16.0); LYMPHOCYTES % (AUTO) 33.4 % (20.0-45.0); MEAN CORPUSCULAR VOLUME 103 FL (80-99); MONOCYTES % (AUTO) 7.6 % (1.0-10.0); NEUTROPHILS % (AUTO) 58.1 % (45.0-75.0); PLATELET COUNT 320 K/UL (150-450); RED BLOOD COUNT 2.91 M/UL (4.20-5.40); RED CELL DISTRIBUTION WIDTH 15.6 % (11.6-14.8); WHITE BLOOD COUNT 10.2 K/UL (4.8-10.8)
[2020-01-01 12:41] LABS: ANION GAP 2 mmol/L (5-15); BLOOD UREA NITROGEN 6 mg/dL (7-18); CALCIUM 7.1 MG/DL (8.5-10.1); CARBON DIOXIDE 31 MMOL/L (21-32); CHLORIDE 113 MMOL/L (98-107); CREATININE 0.9 MG/DL (0.55-1.30); POTASSIUM 4.3 MMOL/L (3.5-5.1); SODIUM 146 MMOL/L (136-145)
--- NOTE | 2020-01-01 13:04 | Nephrology Progress Note ---
Assessment/Plan Problem List: (1) Renal failure Assessment: Acute on chronic (2) Suspected 2019-nCoV infection Assessment: Acute febrile illness (3) Hypernatremia Assessment: Improving (4) Hypoglycemia Assessment: Improving Assessment Renal failure, most likely chronic, with superimposed acute renal failure. Acute febrile illness, suspected COVID-19 infection. Hypernatremia, likely due to free water deficit. Hypoglycemia Severe hypoalbuminemia Atypical pneumonia Anemia History of psych disease Plan December 31: Lab reviewed. Renal parameters stable. Continue per consultants. December 30: Lab reviewed. Serum sodium 158. On D10 IV fluid. Mag supplement ordered. December 29: Lab reviewed. Periodic hypoglycemia. On nasal cannula. Stable from renal standpoint of view. Hypoglycemia protocol in place. Per order. December 28: Labs reviewed. Serum sodium going down. On nasal cannula. Continue per consultants. December 27: Now in [facility]. Postop day 3. On nasal cannula. Labs reviewed. Hypernatremia improving. Continue D5W however will cut down the rate. Continue to monitor electrolytes. Continue per consultants. December 26: Remains in ICU. Postop day 2. Is now extubated. Lab reviewed. Hypernatremia persists. Continue D5W. Discussed with RN. December 25: Patient in ICU. Had surgery yesterday December 24. Patient remains intubated, due for extubation. Lab reviewed. Discussed with RN. Continue D5W for hypernatremia. Patient overall stable from renal standpoint of view. December 24: Renal parameters reviewed. Creatinine within normal limit. Serum sodium remains high. Patient due for hernia surgery today. Continue D5W IV fluid. December 23: Renal parameters reviewed. Creatinine down to 1.4. Serum sodium higher. Patient is being investigated for incarcerated ventral hernia by general surgery. Continue current IV fluid and monitor renal parameters. December 22: Will recheck serum potassium. If nonhemolyzed value still elevated will treat hyperkalemia. Discussed with DOT Leary. Continue the rest of the medication. Stop blood pressure medication due to low blood pressure, adjust the dose when the blood pressure improves PRN IV hydralazine for blood pressure spike D5W IV hydration Protonix p.o. Albumin IV bolus Monitor renal parameters Continue per consultants Saha catheter, urine studies Subjective ROS Limited/Unobtainable: No Constitutional: Reports: malaise, weakness Objective Objective Last 24 Hour Vital Signs Date Time Temp Pulse Resp B/P (MAP) Pulse Ox O2 Delivery O2 Flow Rate FiO2 01/01/20 12:00 113 01/01/20 12:00 Nasal Cannula 2.0 Nasal Cannula 2.0 01/01/20 12:00 97.7 112 18 114/97 (103) 97 01/01/20 08:00 Nasal Cannula 4.0 Nasal Cannula 4.0 01/01/20 08:00 98.7 117 18 105/78 (87) 100 01/01/20 08:00 116 01/01/20 04:00 98.1 110 20 115/75 (88) 100 01/01/20 04:00 Nasal Cannula 2.0 Nasal Cannula 2.0 01/01/20 03:36 93 01/01/20 00:00 Nasal Cannula 2.0 Nasal Cannula 2.0 01/01/20 00:00 98.2 96 20 102/70 (81) 100 12/31/19 23:37 109 12/31/19 20:00 104 12/31/19 20:00 97.5 105 20 101/68 (79) 100 12/31/19 20:00 Nasal Cannula 2.0 Nasal Cannula 2.0 12/31/19 16:00 Nasal Cannula 2.0 Nasal Cannula 2.0 12/31/19 16:00 109 12/31/19 16:00 97.2 110 20 101/67 (78) 100 Intake and Output 12/31/19 01/01/20 19:00 07:00 Intake Total 1375 ml 1746 ml Output Total 300 ml 900 ml Balance 1075 ml 846 ml Intake Oral 500 ml IV Total 875 ml 1206 ml Other 540 ml Output Urine Total 300 ml 900 ml # Voids 1 # Bowel Movements 1 2 Laboratory Tests 12/31/19 13:18: POC Whole Blood Glucose 68L 12/31/19 13:45: POC Whole Blood Glucose 23*L 12/31/19 13:51: POC Whole Blood Glucose 25*L 12/31/19 14:36: POC Whole Blood Glucose 154H 12/31/19 16:42: POC Whole Blood Glucose 53L 12/31/19 17:30: POC Whole Blood Glucose 148H 12/31/19 22:16: POC Whole Blood Glucose 118H 01/01/20 03:41: POC Whole Blood Glucose [Pending] 01/01/20 05:39: POC Whole Blood Glucose 75 01/01/20 11:45: White Blood Count 10.2, Red Blood Count 2.91L, Hemoglobin 9.2L, Hematocrit 29.9L , Mean Corpuscular Volume 103H, Mean Corpuscular Hemoglobin 31.5H, Mean Corpuscular Hemoglobin Concent 30.6L, Red Cell Distribution Width 15.6H, Platelet Count 320, Mean Platelet Volume 5.5L, Neutrophils (%) (Auto) 58.1, Lymphocytes (%) (Auto) 33.4, Monocytes (%) (Auto) 7.6, Eosinophils (%) (Auto) 0.1, Basophils (%) (Auto) 0.9, Sodium Level 146H, Potassium Level 4.3, Chloride Level 113H, Carbon Dioxide Level 31, Anion Gap 2L, Blood Urea Nitrogen 6L, Creatinine 0.9, Estimat Glomerular Filtration Rate > 60, Glucose Level 117H, Calcium Level 7.1L, Magnesium Level 2.0 Height (Feet): 5 Height (Inches): 4.00 Weight (Pounds): 168 General Appearance: no apparent distress, lethargic Cardiovascular: tachycardia Abdomen: distended Brian Pichardo MD Jan 01, 2020 13:04
--- NOTE | 2020-01-01 14:40 | NUR ---
*-*DISCHARGE PLANNED*-* PATIENT HAS BEEN ACCEPTED AND WILL BE DISCHARGED TO: [facility] P: [phone] FOR NURSE TO NURSE REPORT ROOM# 6.[facility] SET FOR 16:30PM S/W [id number] S/W PATIENT SISTER, KASSIDY ROBERTO, WHO IS IN AGREEMENT WITH DISCHARGE PLAN. Addendum: 01/01/20 at 1603 by VINAY ALEXANDER CM *-*DISCHARGE PLANNED*-* PATIENT HAS BEEN ACCEPTED AND WILL BE DISCHARGED TO: [facility] P: [phone] FOR NURSE TO NURSE REPORT ROOM# 6.A [facility] SET FOR WILL CALL
--- NOTE | 2020-01-01 14:51 | Cardiac Electrophysiology PN ---
Assessment/Plan Assessment/Plan 1. Hypotension. Due to dehydration and sepsis. Resolved. Echocardiogram EF 65% 2. Hypertension, on p.r.n. IV hydralazine. 3. Severe hypernatremia. Patient is on IV fluid per Dr. Pichardo.Na improved to 150 4. COVID-19 PNA in isolation. 2nd Covid pending 5. K 6.0. Erroneous. Repeat 3.4 6. Incarcerated incisional ventral hernia and Bowel obstruction.S/P surgery by Dr Vargas. 7. S/P Respiratory failure, extubated 12/26/19 8. Hypoglycemia on D 10 DW RN Subjective Subjective In isolation for Covid positive in SDU. S/P incarcerated ventral hernia surgery 12/25/19. BS was 35. On D 10 at 100cc/hr. On 4 liter NC Objective Last 24 Hour Vital Signs Date Time Temp Pulse Resp B/P (MAP) Pulse Ox O2 Delivery O2 Flow Rate FiO2 01/01/20 12:00 113 01/01/20 12:00 Nasal Cannula 2.0 Nasal Cannula 2.0 01/01/20 12:00 97.7 112 18 114/97 (103) 97 01/01/20 08:00 Nasal Cannula 4.0 Nasal Cannula 4.0 01/01/20 08:00 98.7 117 18 105/78 (87) 100 01/01/20 08:00 116 01/01/20 04:00 98.1 110 20 115/75 (88) 100 01/01/20 04:00 Nasal Cannula 2.0 Nasal Cannula 2.0 01/01/20 03:36 93 01/01/20 00:00 Nasal Cannula 2.0 Nasal Cannula 2.0 01/01/20 00:00 98.2 96 20 102/70 (81) 100 12/31/19 23:37 109 12/31/19 20:00 104 12/31/19 20:00 97.5 105 20 101/68 (79) 100 12/31/19 20:00 Nasal Cannula 2.0 Nasal Cannula 2.0 12/31/19 16:00 Nasal Cannula 2.0 Nasal Cannula 2.0 12/31/19 16:00 109 12/31/19 16:00 97.2 110 20 101/67 (78) 100 Intake and Output 12/31/19 01/01/20 19:00 07:00 Intake Total 1375 ml 1746 ml Output Total 300 ml 900 ml Balance 1075 ml 846 ml Intake Oral 500 ml IV Total 875 ml 1206 ml Other 540 ml Output Urine Total 300 ml 900 ml # Voids 1 # Bowel Movements 1 2 Laboratory Tests Test 12/31/19 16:42 12/31/19 17:30 12/31/19 22:16 01/01/20 03:41 POC Whole Blood Glucose 53 MG/DL (74-106) L 148 MG/DL (74-106) H 118 MG/DL (74-106) H Pending Test 01/01/20 05:39 01/01/20 11:45 POC Whole Blood Glucose 75 MG/DL (74-106) White Blood Count 10.2 K/UL (4.8-10.8) Red Blood Count 2.91 M/UL (4.20-5.40) L Hemoglobin 9.2 G/DL (12.0-16.0) L Hematocrit 29.9 % (37.0-47.0) L Mean Corpuscular Volume 103 FL (80-99) H Mean Corpuscular Hemoglobin 31.5 PG (27.0-31.0) H Mean Corpuscular Hemoglobin Concent 30.6 G/DL (32.0-36.0) L Red Cell Distribution Width 15.6 % (11.6-14.8) H Platelet Count 320 K/UL (150-450) Mean Platelet Volume 5.5 FL (6.5-10.1) L Neutrophils (%) (Auto) 58.1 % (45.0-75.0) Lymphocytes (%) (Auto) 33.4 % (20.0-45.0) Monocytes (%) (Auto) 7.6 % (1.0-10.0) Eosinophils (%) (Auto) 0.1 % (0.0-3.0) Basophils (%) (Auto) 0.9 % (0.0-2.0) Sodium Level 146 MMOL/L (136-145) H Potassium Level 4.3 MMOL/L (3.5-5.1) Chloride Level 113 MMOL/L (98-107) H Carbon Dioxide Level 31 MMOL/L (21-32) Anion Gap 2 mmol/L (5-15) L Blood Urea Nitrogen 6 mg/dL (7-18) L Creatinine 0.9 MG/DL (0.55-1.30) Estimat Glomerular Filtration Rate > 60 mL/min (>60) Glucose Level 117 MG/DL (74-106) H Calcium Level 7.1 MG/DL (8.5-10.1) L Magnesium Level 2.0 MG/DL (1.8-2.4) Microbiology Date/Time Source Procedure Growth Status 12/31/19 00:00 Nasopharynx Coronavirus COVID-19 PCR ([facility]) - Final Complete Objective HEAD AND NECK: No JVD. LUNGS: Coarse rhonchi. CARDIOVASCULAR: Regular S1, S2. ABDOMEN: Soft. S/P hernia surgery EXTREMITIES: No pitting edema. Steffen Mera MD Jan 01, 2020 14:51
--- NOTE | 2020-01-01 15:16 | NUR ---
NURSE NOTES: spoke with Awilda from case management to let her know I'm awaiting clearance from Dr Yang before discharging pt. I was instructed by Awilda to call [facility] at [phone] and hold the discharge until I receive clearance. Awaiting call back from Dr Yang at this time.
--- NOTE | 2020-01-01 15:20 | NUR ---
NURSE NOTES: Received call back from Dr Yang with instruction to cancel discharge for today and place order for calorie count at this time. Dr Yang to clear pt before future discharge due to BG trends.
--- NOTE | 2020-01-01 15:25 | NUR ---
NURSE NOTES: Awilda from case management made aware discharge today was cancelled.
[2020-01-01 16:00] VITALS: BP 111/85
--- NOTE | 2020-01-01 16:14 | Progress Note ---
DATE: 01/01/2020 SUBJECTIVE: A 54-year-old female patient. She has COVID-19 infection, pneumonia, hernia. She had a decline in cognition below the baseline. She has got extreme mood lability. That is why, her attending physician has requested daily psychiatric consultation. MENTAL STATUS EXAMINATION: This is a 53-year-old female. Appearance is disheveled. Attitude, irritable and agitated. Affect, guarded and restricted. Intellect poor. Mood depressed and anxious. Motor activity, psychomotor agitation. Attention span is poor. Orientation x2. Speech is low volume, slurred. Thought process, disorganized and illogical. Insight and judgment is poor. DIAGNOSIS: Schizoaffective, bipolar type. PLAN: Keep the patient on Haldol 5 mg 3 times a day, Geodon at a dose of 40 mg twice a day, Ativan 1 every 6 hours p.r.n. anxiety and agitation, Depakote at a dose of 250 mg . Encouraged her to interact appropriately with staff and other patients. She will continue to be followed by Psychiatry throughout hospital course. 20 minutes of reality-based supportive psychotherapy provided. Chart reviewed. Discussed with staff. Seen and assessed at her bedside. Flip Burgos M.D. DR: MELANIE JOB#: [id number] CC:
--- NOTE | 2020-01-01 16:30 | Progress Note ---
DATE: 01/01/2020 SUBJECTIVE: A 54-year-old female patient. She has pneumonia. She has a hernia. She has got confusion. Thought process disorganized and illogical. She has got no plan for her own self-care. She has got feelings of helplessness, hopelessness, low energy, poor appetite, loss of interest in activity. DIAGNOSIS: Paranoid schizophrenia. PLAN: Continue treatment with Geodon 40 mg twice a day, Haldol 5 mg 3 times a day. Twenty minutes of cognitive behavioral therapy to help identify automatic negative thoughts, help to convert her negative thoughts to more positive thoughts to reduce depression, anxiety, mood lability. Chart reviewed. Discussed with staff. Seen and assessed at bedside. Flip Burgos M.D. DR: MELANIE JOB#: [id number] CC:
--- NOTE | 2020-01-01 18:46 | NUR ---
NURSE NOTES: Spoke to Dr Montague- let her know covid swab result is positive for swab sent 12/31/19. No new orders received.
--- NOTE | 2020-01-01 18:58 | NUR ---
HAND-OFF: Report given to DOT Bains. Pt in stable condition.
--- NOTE | 2020-01-01 19:00 | NUR ---
NURSE NOTES: Report received from DOT Simon. Observed pt sleeping in the bed, arousable. ST with HR of 120s noted. On 2L NC, no sob. Purewick applied. IV on L FA 22G, SL. L EJ 20G, running D10 W at 100cc/hr. No signs of hypoglycemic symptoms noted at this time. Bed in the lowest position. Side rails up x3. Call light within reach. Will continue to monitor.
[2020-01-01 20:00] VITALS: BP 114/60
[2020-01-01] MEDS: Dextrose 50% 25ml Syringe IV PRN ×2 (22:17→23:40)
[2020-01-02] VITALS: BP 95/56
--- NOTE | 2020-01-02 00:30 | NUR ---
NURSE NOTES: Noted pt blood sugar of 66 around 2200, prn med given, pt asymptomatic. Blood sugar noted to be 62 again, another prn med given, asymptomatic. At this time, BS of 102 noted. Addendum: 01/02/20 at 0139 by Nara Cruz RN pt refused to drink juice.
[2020-01-02 04:00] VITALS: BP 113/61
--- NOTE | 2020-01-02 04:00 | NUR ---
NURSE NOTES: pt sleeping in the bed. No acute distress noted at this time. Bed bath given. Will continue to monitor.
[2020-01-02] MEDS: Dextrose 10% 1,000 ML IV SCH ×2 (05:07→15:00)
[2020-01-02 06:32] LABS: BASOPHILS % (AUTO) 1.4 % (0.0-2.0); EOSINOPHILS % (AUTO) 0.2 % (0.0-3.0); HEMATOCRIT 27.4 % (37.0-47.0); HEMOGLOBIN 8.3 G/DL (12.0-16.0); LYMPHOCYTES % (AUTO) 38.3 % (20.0-45.0); MEAN CORPUSCULAR VOLUME 103 FL (80-99); MONOCYTES % (AUTO) 6.5 % (1.0-10.0); NEUTROPHILS % (AUTO) 53.5 % (45.0-75.0); PLATELET COUNT 321 K/UL (150-450); RED BLOOD COUNT 2.66 M/UL (4.20-5.40); RED CELL DISTRIBUTION WIDTH 15.4 % (11.6-14.8); WHITE BLOOD COUNT 10.2 K/UL (4.8-10.8)
[2020-01-02 07:24] LABS: ANION GAP 4 mmol/L (5-15); BLOOD UREA NITROGEN 12 mg/dL (7-18); CALCIUM 7.4 MG/DL (8.5-10.1); CARBON DIOXIDE 28 MMOL/L (21-32); CHLORIDE 115 MMOL/L (98-107); SODIUM 147 MMOL/L (136-145)
--- NOTE | 2020-01-02 07:28 | NUR ---
HAND-OFF: Report given to DOT Eisenberg
--- NOTE | 2020-01-02 07:45 | NUR ---
NURSE NOTES: Pt is AOX2, Pt is on NC @ 2L with no sign of sob or resp distress. Pt is on bus driver/monitor showing ST with HR of 120s Pt is inc and Purewick is noted. IV on Left EJ 20G, running D10 W at 100cc/hr. No signs of hypoglycemic symptoms noted at this time. Bed in the lowest position. Side rails up x3. Call light within reach. Will continue to monitor.
[2020-01-02 08:00] VITALS: BP 100/70
[2020-01-02] MEDS: Heparin 5000 units/ml inj SUBQ SCH ×2 (08:07→21:00)
[2020-01-02] MEDS: Docusate 100mg/10ml Liq ORAL SCH ×3 (08:25→18:00)
[2020-01-02] MEDS: Ziprasidone 20mg cap ORAL SCH ×2 (08:25→21:00)
[2020-01-02] MEDS: Pantoprazole Inj IVP SCH ×2 (08:25→21:00)
[2020-01-02] MEDS: Benztropine 1mg tab ORAL SCH ×2 (08:26→18:00)
--- NOTE | 2020-01-02 08:26 | Infectious Diseases Prog Note ---
Assessment/Plan Assessment/Plan A 1. E.coli sepsis treated 2. COVID19 pneumonia 3. fever resolved 4. hypertension 5. renal failure 6. bipolar disorder 7. asthma 8. Pseudomonas UTI 9. Incarcerated ventral hernia s/p surgery 10. Perioperative respiratory failur resolved P 1, Observe off antibiotic 2. continue isolation Subjective ROS Limited/Unobtainable: Yes Respiratory: Reports: dry cough; Denies: shortness of breath Allergies: Coded Allergies: IBUPROFEN (Verified Allergy, Unknown, 12/20/19) Objective Last 24 Hour Vital Signs Date Time Temp Pulse Resp B/P (MAP) Pulse Ox O2 Delivery O2 Flow Rate FiO2 01/02/20 04:00 Nasal Cannula 2.0 Nasal Cannula 2.0 01/02/20 04:00 98.5 119 20 113/61 (78) 98 01/02/20 04:00 109 01/02/20 00:00 116 01/02/20 00:00 98.3 115 20 95/56 (69) 98 01/02/20 00:00 Nasal Cannula 2.0 Nasal Cannula 2.0 01/01/20 20:00 Nasal Cannula 2.0 Nasal Cannula 2.0 01/01/20 20:00 98.1 120 20 114/60 (78) 98 01/01/20 20:00 120 01/01/20 16:00 Nasal Cannula 2.0 Nasal Cannula 2.0 01/01/20 16:00 119 01/01/20 16:00 98.2 125 16 111/85 (94) 97 01/01/20 12:00 113 01/01/20 12:00 Nasal Cannula 2.0 Nasal Cannula 2.0 01/01/20 12:00 97.7 112 18 114/97 (103) 97 Height (Feet): 5 Height (Inches): 4.00 Weight (Pounds): 165 General Appearance: no acute distress HEENT: mucous membranes moist Respiratory/Chest: other - oxygen by nasal cannula Cardiovascular: tachycardia Abdomen: soft, non tender Neurologic/Psychiatric: alert, responsive Microbiology Date/Time Source Procedure Growth Status 12/31/19 00:00 Nasopharynx Coronavirus COVID-19 PCR ([facility]) - Final Complete Laboratory Tests Test 01/01/20 11:45 01/01/20 22:01 01/01/20 22:48 01/01/20 23:05 White Blood Count 10.2 K/UL (4.8-10.8) Red Blood Count 2.91 M/UL (4.20-5.40) L Hemoglobin 9.2 G/DL (12.0-16.0) L Hematocrit 29.9 % (37.0-47.0) L Mean Corpuscular Volume 103 FL (80-99) H Mean Corpuscular Hemoglobin 31.5 PG (27.0-31.0) H Mean Corpuscular Hemoglobin Concent 30.6 G/DL (32.0-36.0) L Red Cell Distribution Width 15.6 % (11.6-14.8) H Platelet Count 320 K/UL (150-450) Mean Platelet Volume 5.5 FL (6.5-10.1) L Neutrophils (%) (Auto) 58.1 % (45.0-75.0) Lymphocytes (%) (Auto) 33.4 % (20.0-45.0) Monocytes (%) (Auto) 7.6 % (1.0-10.0) Eosinophils (%) (Auto) 0.1 % (0.0-3.0) Basophils (%) (Auto) 0.9 % (0.0-2.0) Sodium Level 146 MMOL/L (136-145) H Potassium Level 4.3 MMOL/L (3.5-5.1) Chloride Level 113 MMOL/L (98-107) H Carbon Dioxide Level 31 MMOL/L (21-32) Anion Gap 2 mmol/L (5-15) L Blood Urea Nitrogen 6 mg/dL (7-18) L Creatinine 0.9 MG/DL (0.55-1.30) Estimat Glomerular Filtration Rate > 60 mL/min (>60) Glucose Level 117 MG/DL (74-106) H Calcium Level 7.1 MG/DL (8.5-10.1) L Magnesium Level 2.0 MG/DL (1.8-2.4) POC Whole Blood Glucose 66 MG/DL (74-106) L 62 MG/DL (74-106) L 64 MG/DL (74-106) L Test 01/02/20 00:27 01/02/20 00:28 01/02/20 04:25 01/02/20 05:23 POC Whole Blood Glucose 21 MG/DL (74-106) *L 102 MG/DL (74-106) 85 MG/DL (74-106) White Blood Count 10.2 K/UL (4.8-10.8) Red Blood Count 2.66 M/UL (4.20-5.40) L Hemoglobin 8.3 G/DL (12.0-16.0) L Hematocrit 27.4 % (37.0-47.0) L Mean Corpuscular Volume 103 FL (80-99) H Mean Corpuscular Hemoglobin 31.4 PG (27.0-31.0) H Mean Corpuscular Hemoglobin Concent 30.4 G/DL (32.0-36.0) L Red Cell Distribution Width 15.4 % (11.6-14.8) H Platelet Count 321 K/UL (150-450) Mean Platelet Volume 4.7 FL (6.5-10.1) L Neutrophils (%) (Auto) 53.5 % (45.0-75.0) Lymphocytes (%) (Auto) 38.3 % (20.0-45.0) Monocytes (%) (Auto) 6.5 % (1.0-10.0) Eosinophils (%) (Auto) 0.2 % (0.0-3.0) Basophils (%) (Auto) 1.4 % (0.0-2.0) Sodium Level 147 MMOL/L (136-145) H Potassium Level 5.0 MMOL/L (3.5-5.1) Chloride Level 115 MMOL/L (98-107) H Carbon Dioxide Level 28 MMOL/L (21-32) Anion Gap 4 mmol/L (5-15) L Blood Urea Nitrogen 12 mg/dL (7-18) Creatinine 1.0 MG/DL (0.55-1.30) Estimat Glomerular Filtration Rate > 60 mL/min (>60) Glucose Level 63 MG/DL (74-106) L Calcium Level 7.4 MG/DL (8.5-10.1) L Current Medications Medications (Trade) Dose Ordered Sig/Venita Route PRN Reason Start Time Stop Time Status Last Admin Dose Admin Benztropine Mesylate (Cogentin) 2 mg BID ORAL 12/27/19 18:00 01/20/20 08:59 01/01/20 17:29 Dextrose 1,000 ml @ 100 mls/hr Q10H IV 12/31/19 23:00 01/30/20 22:59 01/02/20 05:07 Dextrose (Dextrose 50%) 25 ml Q30M PRN IV Hypoglycemia 12/29/19 11:15 01/28/20 11:07 01/01/20 23:40 Dextrose (Dextrose 50%) 50 ml Q30M PRN IV hypoglycemia 12/29/19 11:15 03/28/20 11:14 12/31/19 21:10 Divalproex Sodium (Depakote Sprinkles) 250 mg Q12HR ORAL 01/01/20 09:00 01/31/20 08:59 01/01/20 20:53 Docusate Sodium (Colace) 100 mg THREE TIMES A DAY ORAL 01/01/20 09:00 01/31/20 08:59 01/01/20 17:29 Haloperidol (Haldol) 5 mg TID ORAL 12/27/19 13:00 02/04/20 13:59 01/01/20 17:29 Heparin Sodium (Porcine) (Heparin 5000 units/ml) 5,000 units EVERY 12 HOURS SUBQ 12/27/19 21:00 02/09/20 08:59 01/02/20 08:07 Hydralazine HCl (Apresoline) 10 mg Q4H PRN IV Blood pressure over 160 systol 12/27/19 12:45 03/24/20 16:37 Pantoprazole (Protonix) 40 mg EVERY 12 HOURS IVP 12/27/19 21:00 01/24/20 20:59 01/01/20 20:53 Ziprasidone (Geodon) 40 mg Q12HR ORAL 12/27/19 21:00 02/04/20 20:59 01/01/20 20:53 Ron Luis MD Jan 02, 2020 08:26
[2020-01-02] MEDS: Depakote 125mg Sprinkles ORAL SCH ×2 (08:27→21:00)
--- NOTE | 2020-01-02 11:41 | General Progress Note ---
Assessment/Plan Problem List: (1) UTI (urinary tract infection) ICD Codes: N39.0 - Urinary tract infection, site not specified SNOMED: 86193610 (2) Malnutrition ICD Codes: E46 - Unspecified protein-calorie malnutrition SNOMED: 80080678 (3) Renal failure ICD Codes: N19 - Unspecified kidney failure SNOMED: 21776164 (4) HTN (hypertension) ICD Codes: I10 - Essential (primary) hypertension SNOMED: 89736231 (5) Hypoglycemia ICD Codes: E16.2 - Hypoglycemia, unspecified SNOMED: 889423680 (6) Hypernatremia ICD Codes: E87.0 - Hyperosmolality and hypernatremia SNOMED: 356297290 (7) Suspected 2019-nCoV infection ICD Codes: Z20.828 - Contact with and (suspected) exposure to other viral communicable diseases SNOMED: 466576059 Status: unchanged Assessment/Plan: o2 pulm tx abx pt diet cbc bmp am wound care dc to ltach if clear Subjective Constitutional: Reports: weakness Allergies: Coded Allergies: IBUPROFEN (Verified Allergy, Unknown, 12/20/19) All Systems: reviewed and negative except above Subjective calm in bed Objective Last 24 Hour Vital Signs Date Time Temp Pulse Resp B/P (MAP) Pulse Ox O2 Delivery O2 Flow Rate FiO2 01/02/20 08:00 Nasal Cannula 2.0 Nasal Cannula 2.0 01/02/20 08:00 98.1 113 16 100/70 (80) 98 01/02/20 08:00 126 01/02/20 04:00 Nasal Cannula 2.0 Nasal Cannula 2.0 01/02/20 04:00 98.5 119 20 113/61 (78) 98 01/02/20 04:00 109 01/02/20 00:00 116 01/02/20 00:00 98.3 115 20 95/56 (69) 98 01/02/20 00:00 Nasal Cannula 2.0 Nasal Cannula 2.0 01/01/20 20:00 Nasal Cannula 2.0 Nasal Cannula 2.0 01/01/20 20:00 98.1 120 20 114/60 (78) 98 01/01/20 20:00 120 01/01/20 16:00 Nasal Cannula 2.0 Nasal Cannula 2.0 01/01/20 16:00 119 01/01/20 16:00 98.2 125 16 111/85 (94) 97 01/01/20 12:00 113 01/01/20 12:00 Nasal Cannula 2.0 Nasal Cannula 2.0 01/01/20 12:00 97.7 112 18 114/97 (103) 97 Intake and Output 01/01/20 01/02/20 19:00 07:00 Intake Total 1683.46319 ml 1100 ml Output Total 1600 ml 1500 ml Balance 83.49734 ml -400 ml Intake Oral 500 ml 100 ml IV Total 1183.95969 ml 1000 ml Output Urine Total 1600 ml 1500 ml Laboratory Tests 01/01/20 11:45: White Blood Count 10.2, Red Blood Count 2.91L, Hemoglobin 9.2L, Hematocrit 29.9L , Mean Corpuscular Volume 103H, Mean Corpuscular Hemoglobin 31.5H, Mean Corpuscular Hemoglobin Concent 30.6L, Red Cell Distribution Width 15.6H, Platelet Count 320, Mean Platelet Volume 5.5L, Neutrophils (%) (Auto) 58.1, Lymphocytes (%) (Auto) 33.4, Monocytes (%) (Auto) 7.6, Eosinophils (%) (Auto) 0.1, Basophils (%) (Auto) 0.9, Sodium Level 146H, Potassium Level 4.3, Chloride Level 113H, Carbon Dioxide Level 31, Anion Gap 2L, Blood Urea Nitrogen 6L, Creatinine 0.9, Estimat Glomerular Filtration Rate > 60, Glucose Level 117H, Calcium Level 7.1L, Magnesium Level 2.0 01/01/20 22:01: POC Whole Blood Glucose 66L 01/01/20 22:48: POC Whole Blood Glucose 62L 01/01/20 23:05: POC Whole Blood Glucose 64L 01/02/20 00:27: POC Whole Blood Glucose 21*L 01/02/20 00:28: POC Whole Blood Glucose 102 01/02/20 04:25: White Blood Count 10.2, Red Blood Count 2.66L, Hemoglobin 8.3L, Hematocrit 27.4L , Mean Corpuscular Volume 103H, Mean Corpuscular Hemoglobin 31.4H, Mean Corpuscular Hemoglobin Concent 30.4L, Red Cell Distribution Width 15.4H, Platelet Count 321, Mean Platelet Volume 4.7L, Neutrophils (%) (Auto) 53.5, Lymphocytes (%) (Auto) 38.3, Monocytes (%) (Auto) 6.5, Eosinophils (%) (Auto) 0.2, Basophils (%) (Auto) 1.4, Sodium Level 147H, Potassium Level 5.0, Chloride Level 115H, Carbon Dioxide Level 28, Anion Gap 4L, Blood Urea Nitrogen 12, Creatinine 1.0, Estimat Glomerular Filtration Rate > 60, Glucose Level 63L, Calcium Level 7.4L 01/02/20 05:23: POC Whole Blood Glucose 85 Height (Feet): 5 Height (Inches): 4.00 Weight (Pounds): 165 General Appearance: lethargic EENT: normal ENT inspection Neck: normal alignment Cardiovascular: normal rate, regular rhythm Respiratory/Chest: no respiratory distress, no accessory muscle use Extremities: normal inspection Skin: normal pigmentation Ricky Potter DO Jan 02, 2020 11:41
[2020-01-02 12:00] VITALS: BP 123/84
--- NOTE | 2020-01-02 12:59 | Pulmonology Progress Note ---
Subjective ROS Limited/Unobtainable: Yes Interval Events: Extubated on 12/27/19 Constitutional: Denies: fever, chills HEENT: Repors: no symptoms Respiratory: Reports: no symptoms Cardiovascular: Reports: no symptoms Gastrointestinal/Abdominal: Denies: nausea, vomiting, diarrhea Genitourinary: Reports: no symptoms Neurologic: Reports: no symptoms Musculoskeletal: Denies: pain Allergies: Coded Allergies: IBUPROFEN (Verified Allergy, Unknown, 12/20/19) All Systems: reviewed and negative except above Objective Last 24 Hour Vital Signs Date Time Temp Pulse Resp B/P (MAP) Pulse Ox O2 Delivery O2 Flow Rate FiO2 01/02/20 08:00 Nasal Cannula 2.0 Nasal Cannula 2.0 01/02/20 08:00 98.1 113 16 100/70 (80) 98 01/02/20 08:00 126 01/02/20 04:00 Nasal Cannula 2.0 Nasal Cannula 2.0 01/02/20 04:00 98.5 119 20 113/61 (78) 98 01/02/20 04:00 109 01/02/20 00:00 116 01/02/20 00:00 98.3 115 20 95/56 (69) 98 01/02/20 00:00 Nasal Cannula 2.0 Nasal Cannula 2.0 01/01/20 20:00 Nasal Cannula 2.0 Nasal Cannula 2.0 01/01/20 20:00 98.1 120 20 114/60 (78) 98 01/01/20 20:00 120 01/01/20 16:00 Nasal Cannula 2.0 Nasal Cannula 2.0 01/01/20 16:00 119 01/01/20 16:00 98.2 125 16 111/85 (94) 97 Intake and Output 01/01/20 01/02/20 19:00 07:00 Intake Total 1683.85356 ml 1100 ml Output Total 1600 ml 1500 ml Balance 83.42237 ml -400 ml Intake Oral 500 ml 100 ml IV Total 1183.27612 ml 1000 ml Output Urine Total 1600 ml 1500 ml General Appearance: no acute distress HEENT: normocephalic Respiratory: chest wall non-tender Cardiovascular: normal peripheral pulses, normal rate Abdomen: normal bowel sounds Extremities: no cyanosis Microbiology Date/Time Source Procedure Growth Status 12/31/19 00:00 Nasopharynx Coronavirus COVID-19 PCR ([facility]) - Final Complete Laboratory Tests 01/01/20 22:01: POC Whole Blood Glucose 66L 01/01/20 22:48: POC Whole Blood Glucose 62L 01/01/20 23:05: POC Whole Blood Glucose 64L 01/02/20 00:27: POC Whole Blood Glucose 21*L 01/02/20 00:28: POC Whole Blood Glucose 102 01/02/20 04:25: White Blood Count 10.2, Red Blood Count 2.66L, Hemoglobin 8.3L, Hematocrit 27.4L , Mean Corpuscular Volume 103H, Mean Corpuscular Hemoglobin 31.4H, Mean Corpuscular Hemoglobin Concent 30.4L, Red Cell Distribution Width 15.4H, Platelet Count 321, Mean Platelet Volume 4.7L, Neutrophils (%) (Auto) 53.5, Lymphocytes (%) (Auto) 38.3, Monocytes (%) (Auto) 6.5, Eosinophils (%) (Auto) 0.2, Basophils (%) (Auto) 1.4, Sodium Level 147H, Potassium Level 5.0, Chloride Level 115H, Carbon Dioxide Level 28, Anion Gap 4L, Blood Urea Nitrogen 12, Creatinine 1.0, Estimat Glomerular Filtration Rate > 60, Glucose Level 63L, Calcium Level 7.4L 01/02/20 05:23: POC Whole Blood Glucose 85 01/02/20 12:29: POC Whole Blood Glucose 12*L 01/02/20 12:32: POC Whole Blood Glucose [Pending] 01/02/20 12:45: POC Whole Blood Glucose [Pending] Current Medications Medications (Trade) Dose Ordered Sig/Venita Route PRN Reason Start Time Stop Time Status Last Admin Dose Admin Benztropine Mesylate (Cogentin) 2 mg BID ORAL 12/27/19 18:00 01/20/20 08:59 01/02/20 08:26 Dextrose 1,000 ml @ 100 mls/hr Q10H IV 12/31/19 23:00 01/30/20 22:59 01/02/20 05:07 Dextrose (Dextrose 50%) 25 ml Q30M PRN IV Hypoglycemia 12/29/19 11:15 01/28/20 11:07 01/01/20 23:40 Dextrose (Dextrose 50%) 50 ml Q30M PRN IV hypoglycemia 12/29/19 11:15 03/28/20 11:14 12/31/19 21:10 Divalproex Sodium (Depakote Sprinkles) 250 mg Q12HR ORAL 01/01/20 09:00 01/31/20 08:59 01/02/20 08:27 Docusate Sodium (Colace) 100 mg THREE TIMES A DAY ORAL 01/01/20 09:00 01/31/20 08:59 01/02/20 12:18 Haloperidol (Haldol) 5 mg TID ORAL 12/27/19 13:00 02/04/20 13:59 01/02/20 12:18 Heparin Sodium (Porcine) (Heparin 5000 units/ml) 5,000 units EVERY 12 HOURS SUBQ 12/27/19 21:00 02/09/20 08:59 01/02/20 08:07 Hydralazine HCl (Apresoline) 10 mg Q4H PRN IV Blood pressure over 160 systol 12/27/19 12:45 03/24/20 16:37 Pantoprazole (Protonix) 40 mg EVERY 12 HOURS IVP 12/27/19 21:00 01/24/20 20:59 01/02/20 08:25 Ziprasidone (Geodon) 40 mg Q12HR ORAL 12/27/19 21:00 02/04/20 20:59 01/02/20 08:25 Assessment/Plan Assessment/Plan IMPRESSION: 1. Confirmed COVID-19 pneumonia. 2. Hypernatremia. Improved 3. Psych disorder. 4. skilled nursing resident. 5. E Coli bacteremia 6. Incarcerated hernia s/p repair DISCUSSION: Agree with current medications and care. Continue steroids. Continue medications. I will follow as practice consultant. Abx per ID On 2L/min O2 Roberta Manzo Omar Syed MD Jan 02, 2020 12:59
--- NOTE | 2020-01-02 13:45 | Nephrology Progress Note ---
Assessment/Plan Problem List: (1) Renal failure Assessment: Acute on chronic (2) Suspected 2019-nCoV infection Assessment: Acute febrile illness (3) Hypernatremia Assessment: Improving (4) Hypoglycemia Assessment: Improving Assessment Renal failure, most likely chronic, with superimposed acute renal failure. Acute febrile illness, suspected COVID-19 infection. Hypernatremia, likely due to free water deficit. Hypoglycemia Severe hypoalbuminemia Atypical pneumonia Anemia History of psych disease Plan January 01: Lab reviewed. Renal parameters stable. Patient blood sugar fluctuating mostly towards hypoglycemia despite of being on D10. Continue per endocrinology advice. December 31: Lab reviewed. Renal parameters stable. Continue per consultants. December 30: Lab reviewed. Serum sodium 158. On D10 IV fluid. Mag supplement ordered. December 29: Lab reviewed. Periodic hypoglycemia. On nasal cannula. Stable from renal standpoint of view. Hypoglycemia protocol in place. Per order. December 28: Labs reviewed. Serum sodium going down. On nasal cannula. Continue per consultants. December 27: Now in [facility]. Postop day 3. On nasal cannula. Labs reviewed. Hypernatremia improving. Continue D5W however will cut down the rate. Continue to monitor electrolytes. Continue per consultants. December 26: Remains in ICU. Postop day 2. Is now extubated. Lab reviewed. Hypernatremia persists. Continue D5W. Discussed with RN. December 25: Patient in ICU. Had surgery yesterday December 24. Patient remains intubated, due for extubation. Lab reviewed. Discussed with RN. Continue D5W for hypernatremia. Patient overall stable from renal standpoint of view. December 24: Renal parameters reviewed. Creatinine within normal limit. Serum sodium remains high. Patient due for hernia surgery today. Continue D5W IV fluid. December 23: Renal parameters reviewed. Creatinine down to 1.4. Serum sodium higher. Patient is being investigated for incarcerated ventral hernia by general surgery. Continue current IV fluid and monitor renal parameters. December 22: Will recheck serum potassium. If nonhemolyzed value still elevated will treat hyperkalemia. Discussed with DOT Leary. Continue the rest of the medication. Stop blood pressure medication due to low blood pressure, adjust the dose when the blood pressure improves PRN IV hydralazine for blood pressure spike D5W IV hydration Protonix p.o. Albumin IV bolus Monitor renal parameters Continue per consultants Saha catheter, urine studies Subjective ROS Limited/Unobtainable: No Constitutional: Reports: malaise Objective Objective Last 24 Hour Vital Signs Date Time Temp Pulse Resp B/P (MAP) Pulse Ox O2 Delivery O2 Flow Rate FiO2 01/02/20 12:00 Nasal Cannula 2.0 Nasal Cannula 2.0 01/02/20 08:00 Nasal Cannula 2.0 Nasal Cannula 2.0 01/02/20 08:00 98.1 113 16 100/70 (80) 98 01/02/20 08:00 126 01/02/20 04:00 Nasal Cannula 2.0 Nasal Cannula 2.0 01/02/20 04:00 98.5 119 20 113/61 (78) 98 01/02/20 04:00 109 01/02/20 00:00 116 01/02/20 00:00 98.3 115 20 95/56 (69) 98 01/02/20 00:00 Nasal Cannula 2.0 Nasal Cannula 2.0 01/01/20 20:00 Nasal Cannula 2.0 Nasal Cannula 2.0 01/01/20 20:00 98.1 120 20 114/60 (78) 98 01/01/20 20:00 120 01/01/20 16:00 Nasal Cannula 2.0 Nasal Cannula 2.0 01/01/20 16:00 119 01/01/20 16:00 98.2 125 16 111/85 (94) 97 Intake and Output 01/01/20 01/02/20 19:00 07:00 Intake Total 1683.89463 ml 1100 ml Output Total 1600 ml 1500 ml Balance 83.40365 ml -400 ml Intake Oral 500 ml 100 ml IV Total 1183.52587 ml 1000 ml Output Urine Total 1600 ml 1500 ml Current Medications Medications (Trade) Dose Ordered Sig/Venita Route PRN Reason Start Time Stop Time Status Last Admin Dose Admin Benztropine Mesylate (Cogentin) 2 mg BID ORAL 12/27/19 18:00 01/20/20 08:59 01/02/20 08:26 Dextrose 1,000 ml @ 100 mls/hr Q10H IV 12/31/19 23:00 01/30/20 22:59 01/02/20 05:07 Dextrose (Dextrose 50%) 25 ml Q30M PRN IV Hypoglycemia 12/29/19 11:15 01/28/20 11:07 01/01/20 23:40 Dextrose (Dextrose 50%) 50 ml Q30M PRN IV hypoglycemia 12/29/19 11:15 03/28/20 11:14 12/31/19 21:10 Divalproex Sodium (Depakote Sprinkles) 250 mg Q12HR ORAL 01/01/20 09:00 01/31/20 08:59 01/02/20 08:27 Docusate Sodium (Colace) 100 mg THREE TIMES A DAY ORAL 01/01/20 09:00 01/31/20 08:59 01/02/20 12:18 Haloperidol (Haldol) 5 mg TID ORAL 12/27/19 13:00 02/04/20 13:59 01/02/20 12:18 Heparin Sodium (Porcine) (Heparin 5000 units/ml) 5,000 units EVERY 12 HOURS SUBQ 12/27/19 21:00 02/09/20 08:59 01/02/20 08:07 Hydralazine HCl (Apresoline) 10 mg Q4H PRN IV Blood pressure over 160 systol 12/27/19 12:45 03/24/20 16:37 Pantoprazole (Protonix) 40 mg EVERY 12 HOURS IVP 12/27/19 21:00 01/24/20 20:59 01/02/20 08:25 Ziprasidone (Geodon) 40 mg Q12HR ORAL 12/27/19 21:00 02/04/20 20:59 01/02/20 08:25 Laboratory Tests 01/01/20 22:01: POC Whole Blood Glucose 66L 01/01/20 22:48: POC Whole Blood Glucose 62L 01/01/20 23:05: POC Whole Blood Glucose 64L 01/02/20 00:27: POC Whole Blood Glucose 21*L 01/02/20 00:28: POC Whole Blood Glucose 102 01/02/20 04:25: White Blood Count 10.2, Red Blood Count 2.66L, Hemoglobin 8.3L, Hematocrit 27.4L , Mean Corpuscular Volume 103H, Mean Corpuscular Hemoglobin 31.4H, Mean Corpuscular Hemoglobin Concent 30.4L, Red Cell Distribution Width 15.4H, Platelet Count 321, Mean Platelet Volume 4.7L, Neutrophils (%) (Auto) 53.5, Lymphocytes (%) (Auto) 38.3, Monocytes (%) (Auto) 6.5, Eosinophils (%) (Auto) 0.2, Basophils (%) (Auto) 1.4, Sodium Level 147H, Potassium Level 5.0, Chloride Level 115H, Carbon Dioxide Level 28, Anion Gap 4L, Blood Urea Nitrogen 12, Creatinine 1.0, Estimat Glomerular Filtration Rate > 60, Glucose Level 63L, Calcium Level 7.4L 01/02/20 05:23: POC Whole Blood Glucose 85 01/02/20 12:29: POC Whole Blood Glucose 12*L 01/02/20 12:32: POC Whole Blood Glucose [Pending] 01/02/20 12:45: POC Whole Blood Glucose [Pending] 01/02/20 13:25: Glucose Level [Pending] Height (Feet): 5 Height (Inches): 4.00 Weight (Pounds): 165 General Appearance: no apparent distress Cardiovascular: tachycardia Abdomen: distended Objective No change Brian Pichardo MD Jan 02, 2020 13:45
--- NOTE | 2020-01-02 13:55 | NUR ---
NURSE NOTES: Pt is having variable glucose test results. on right index finger glucose stick showed 12, pt was holding a conversation and non symptomatic. Pt is awake. encouraged pt to drink 2 apple juices and pulled dextrose 50 per protocol. IV to left EJ was kinked. Attempting new IV repl. Left thumb shows blood sugar check 82. Will discuss with
--- NOTE | 2020-01-02 14:02 | NUR ---
NURSE NOTES: Blood serum stat ordered and result 135
--- NOTE | 2020-01-02 14:47 | NUR ---
DISCHARGE PLANNING: NOTE GLUCOSE LEVELS REMAIN LABILE. PT IS NOT EATING WELL PER NURSING. DIET TEXTURE ADJUSTED FOR OPTIMIZATION OF NUTRITION. DEXTROSE @ 100 ML/HR LAST GLU CHECK 12 AND RETEST REVEALED 135
--- NOTE | 2020-01-02 14:51 | NUR ---
CASE MANAGEMENT: REVIEW 01/02/2020 SI:SEPSIS. VS: T 98.1 HR 115 RR 16 B/P 123/84 SATS 95% ON 2L/NC LABS: NA 147 CL 115 GLU 63 IS:DEXTROSE IV @ 100 ML/HR PROTONIX IV Q12H COGENTIN PO BID GEODON PO Q12H DEPAKOTE PO Q12H HALDOL PO TID SDU PLAN OF CARE: GLYCEMIC CONTROL AND MONITORING
[2020-01-02 16:00] VITALS: BP 115/64
--- NOTE | 2020-01-02 16:21 | NUR ---
NURSE NOTES: recvd consent from sister Ghassan to insert PICC line for administration and blood draws. No physician available to place picc at the moment, Dr Potter aware.
--- NOTE | 2020-01-02 16:59 | Cardiac Electrophysiology PN ---
Assessment/Plan Assessment/Plan 1. Hypotension. Due to dehydration and sepsis. Resolved. Echocardiogram EF 65% 2. Hypertension, on p.r.n. IV hydralazine. 3. Severe hypernatremia. Patient is on IV fluid per Dr. Pichardo.Na improved to 150 4. COVID-19 PNA in isolation 5. K 6.0. Erroneous. Repeat 3.4 6. Incarcerated incisional ventral hernia and Bowel obstruction.S/P surgery by Dr Vargas. 7. S/P Respiratory failure, extubated 12/26/19 8. Hypoglycemia on D10W DW RN Subjective Subjective In isolation for Covid in SDU. S/P incarcerated ventral hernia surgery 12/25/19. BS was 20s again. On DW 10 at 100cc/hr. Objective Last 24 Hour Vital Signs Date Time Temp Pulse Resp B/P (MAP) Pulse Ox O2 Delivery O2 Flow Rate FiO2 01/02/20 12:00 98.1 115 16 123/84 (97) 95 01/02/20 12:00 106 01/02/20 12:00 Nasal Cannula 2.0 Nasal Cannula 2.0 01/02/20 08:00 Nasal Cannula 2.0 Nasal Cannula 2.0 01/02/20 08:00 98.1 113 16 100/70 (80) 98 01/02/20 08:00 126 01/02/20 04:00 Nasal Cannula 2.0 Nasal Cannula 2.0 01/02/20 04:00 98.5 119 20 113/61 (78) 98 01/02/20 04:00 109 01/02/20 00:00 116 01/02/20 00:00 98.3 115 20 95/56 (69) 98 01/02/20 00:00 Nasal Cannula 2.0 Nasal Cannula 2.0 01/01/20 20:00 Nasal Cannula 2.0 Nasal Cannula 2.0 01/01/20 20:00 98.1 120 20 114/60 (78) 98 01/01/20 20:00 120 Intake and Output 01/01/20 01/02/20 19:00 07:00 Intake Total 1683.75560 ml 1100 ml Output Total 1600 ml 1500 ml Balance 83.94306 ml -400 ml Intake Oral 500 ml 100 ml IV Total 1183.27532 ml 1000 ml Output Urine Total 1600 ml 1500 ml Laboratory Tests Test 01/01/20 22:01 01/01/20 22:48 01/01/20 23:05 01/02/20 00:27 POC Whole Blood Glucose 66 MG/DL (74-106) L 62 MG/DL (74-106) L 64 MG/DL (74-106) L 21 MG/DL (74-106) *L Test 01/02/20 00:28 01/02/20 04:25 01/02/20 05:23 01/02/20 12:29 POC Whole Blood Glucose 102 MG/DL (74-106) 85 MG/DL (74-106) 12 MG/DL (74-106) *L White Blood Count 10.2 K/UL (4.8-10.8) Red Blood Count 2.66 M/UL (4.20-5.40) L Hemoglobin 8.3 G/DL (12.0-16.0) L Hematocrit 27.4 % (37.0-47.0) L Mean Corpuscular Volume 103 FL (80-99) H Mean Corpuscular Hemoglobin 31.4 PG (27.0-31.0) H Mean Corpuscular Hemoglobin Concent 30.4 G/DL (32.0-36.0) L Red Cell Distribution Width 15.4 % (11.6-14.8) H Platelet Count 321 K/UL (150-450) Mean Platelet Volume 4.7 FL (6.5-10.1) L Neutrophils (%) (Auto) 53.5 % (45.0-75.0) Lymphocytes (%) (Auto) 38.3 % (20.0-45.0) Monocytes (%) (Auto) 6.5 % (1.0-10.0) Eosinophils (%) (Auto) 0.2 % (0.0-3.0) Basophils (%) (Auto) 1.4 % (0.0-2.0) Sodium Level 147 MMOL/L (136-145) H Potassium Level 5.0 MMOL/L (3.5-5.1) Chloride Level 115 MMOL/L (98-107) H Carbon Dioxide Level 28 MMOL/L (21-32) Anion Gap 4 mmol/L (5-15) L Blood Urea Nitrogen 12 mg/dL (7-18) Creatinine 1.0 MG/DL (0.55-1.30) Estimat Glomerular Filtration Rate > 60 mL/min (>60) Glucose Level 63 MG/DL (74-106) L Calcium Level 7.4 MG/DL (8.5-10.1) L Test 01/02/20 12:32 01/02/20 12:45 01/02/20 13:25 01/02/20 15:48 POC Whole Blood Glucose Pending Pending 63 MG/DL (74-106) L Glucose Level 135 MG/DL (74-106) H Microbiology Date/Time Source Procedure Growth Status 12/31/19 00:00 Nasopharynx Coronavirus COVID-19 PCR ([facility]) - Final Complete Objective HEAD AND NECK: No JVD. LUNGS: Coarse rhonchi. CARDIOVASCULAR: Regular S1, S2. ABDOMEN: Soft. S/P hernia surgery EXTREMITIES: No pitting edema. Steffen Mera MD Jan 02, 2020 16:59
--- NOTE | 2020-01-02 17:30 | Progress Note ---
DATE: 01/02/2020 SUBJECTIVE: This is a 54-year-old female patient with suspected COVID pneumonia and hernia. She has some confusion, some disorganized thought process, but she is in the hospital secondary to hyponatremia, hypoglycemia, renal failure, malnutrition, urinary tract infection, hypertension, suspected COVID-19, infection, incarcerated ventral hernia, atypical pneumonia, and febrile illness causing her to have decline in cognition below her baseline. That is why, her attending has requested daily psychiatric consultation. MENTAL STATUS EXAMINATION: This is a 54-year-old female. Her appearance is disheveled. Attitude, irritable and agitated. Affect is labile. Intellect, poor. Mood, depressed and anxious. Motor activity, psychomotor agitation. Attention span is poor. Orientation x2. Speech is pressured. Thought process, disorganized and illogical. Insight and judgment is poor. DIAGNOSIS: Schizoaffective, bipolar type. PLAN: My plan for this patient is to treat her with a medication regimen consisting of Depakote 250 mg twice a day as well as Geodon 40 mg q.12 hours, and Ativan 1 mg every 4 hours p.r.n. anxiety or agitation. I encouraged to interact appropriately with staff and other patients. Twenty minutes of reality-based supportive psychotherapy provided. A 20 minutes of cognitive behavioral therapy will help her identify automatic negative thoughts and help her convert negative thoughts to more positive thoughts to reduce depression, anxiety, and mood lability. Chart reviewed. Discussed with staff. Seen and assessed at bedside. Flip Burgos M.D. DR: NICMO JOB#: [id number] CC:
--- NOTE | 2020-01-02 18:21 | General Progress Note ---
Assessment/Plan Problem List: (1) Suspected 2019-nCoV infection ICD Codes: Z20.828 - Contact with and (suspected) exposure to other viral communicable diseases SNOMED: 668905968 (2) Hypoglycemia ICD Codes: E16.2 - Hypoglycemia, unspecified SNOMED: 602976010 (3) Hypernatremia ICD Codes: E87.0 - Hyperosmolality and hypernatremia SNOMED: 949202777 (4) Atypical pneumonia ICD Codes: J18.9 - Pneumonia, unspecified organism SNOMED: 189584267 (5) Acute febrile illness ICD Codes: R50.9 - Fever, unspecified SNOMED: 664708521 Status: unchanged Assessment/Plan: recurrent hypoglycemia due to COVID-19 infection and malnutrition calorie count ordered no evidence of insulin oversecretion or adrenal insufficiency continue 100 cc/hour continue glucose monitoring without insulin coverage hypoglycemia protocol in order Subjective ROS Limited/Unobtainable: Yes Allergies: Coded Allergies: IBUPROFEN (Verified Allergy, Unknown, 12/20/19) Subjective events noted glucose running on the low side without severe hypoglycemia Item Value Date Time Bedside Blood Glucose 82 mg/dl 01/02/20 1630 Bedside Blood Glucose 82 mg/dl 01/02/20 1130 Bedside Blood Glucose 85 mg/dl 01/02/20 0604 Bedside Blood Glucose 62 mg/dl L 01/01/20 2340 Bedside Blood Glucose 66 mg/dl L 01/01/20 2217 Bedside Blood Glucose 88 mg/dl 01/01/20 1745 Objective Last 24 Hour Vital Signs Date Time Temp Pulse Resp B/P (MAP) Pulse Ox O2 Delivery O2 Flow Rate FiO2 01/02/20 16:00 115 01/02/20 16:00 Nasal Cannula 2.0 Nasal Cannula 5.0 01/02/20 16:00 98.2 127 20 115/64 (81) 92 01/02/20 12:00 98.1 115 16 123/84 (97) 95 01/02/20 12:00 106 01/02/20 12:00 Nasal Cannula 2.0 Nasal Cannula 2.0 01/02/20 08:00 Nasal Cannula 2.0 Nasal Cannula 2.0 01/02/20 08:00 98.1 113 16 100/70 (80) 98 01/02/20 08:00 126 01/02/20 04:00 Nasal Cannula 2.0 Nasal Cannula 2.0 01/02/20 04:00 98.5 119 20 113/61 (78) 98 01/02/20 04:00 109 01/02/20 00:00 116 01/02/20 00:00 98.3 115 20 95/56 (69) 98 01/02/20 00:00 Nasal Cannula 2.0 Nasal Cannula 2.0 01/01/20 20:00 Nasal Cannula 2.0 Nasal Cannula 2.0 01/01/20 20:00 98.1 120 20 114/60 (78) 98 01/01/20 20:00 120 Intake and Output 01/01/20 01/02/20 19:00 07:00 Intake Total 1683.24553 ml 1100 ml Output Total 1600 ml 1500 ml Balance 83.90984 ml -400 ml Intake Oral 500 ml 100 ml IV Total 1183.90072 ml 1000 ml Output Urine Total 1600 ml 1500 ml Laboratory Tests 01/01/20 22:01: POC Whole Blood Glucose 66L 01/01/20 22:48: POC Whole Blood Glucose 62L 01/01/20 23:05: POC Whole Blood Glucose 64L 01/02/20 00:27: POC Whole Blood Glucose 21*L 01/02/20 00:28: POC Whole Blood Glucose 102 01/02/20 04:25: White Blood Count 10.2, Red Blood Count 2.66L, Hemoglobin 8.3L, Hematocrit 27.4L , Mean Corpuscular Volume 103H, Mean Corpuscular Hemoglobin 31.4H, Mean Corpuscular Hemoglobin Concent 30.4L, Red Cell Distribution Width 15.4H, Platelet Count 321, Mean Platelet Volume 4.7L, Neutrophils (%) (Auto) 53.5, Lymphocytes (%) (Auto) 38.3, Monocytes (%) (Auto) 6.5, Eosinophils (%) (Auto) 0.2, Basophils (%) (Auto) 1.4, Sodium Level 147H, Potassium Level 5.0, Chloride Level 115H, Carbon Dioxide Level 28, Anion Gap 4L, Blood Urea Nitrogen 12, Creatinine 1.0, Estimat Glomerular Filtration Rate > 60, Glucose Level 63L, Calcium Level 7.4L 01/02/20 05:23: POC Whole Blood Glucose 85 01/02/20 12:29: POC Whole Blood Glucose 12*L 01/02/20 12:32: POC Whole Blood Glucose [Pending] 01/02/20 12:45: POC Whole Blood Glucose [Pending] 01/02/20 13:25: Glucose Level 135H 01/02/20 15:48: POC Whole Blood Glucose 63L 01/02/20 15:49: POC Whole Blood Glucose [Pending] 01/02/20 17:30: POC Whole Blood Glucose 74 Height (Feet): 5 Height (Inches): 4.00 Weight (Pounds): 165 Objective Current Medications Medications (Trade) Dose Ordered Sig/Venita Route PRN Reason Start Time Stop Time Status Last Admin Dose Admin Benztropine Mesylate (Cogentin) 2 mg BID ORAL 12/27/19 18:00 01/20/20 08:59 01/02/20 08:26 Dextrose 1,000 ml @ 100 mls/hr Q10H IV 12/31/19 23:00 01/30/20 22:59 01/02/20 05:07 Dextrose (Dextrose 50%) 25 ml Q30M PRN IV Hypoglycemia 12/29/19 11:15 01/28/20 11:07 01/01/20 23:40 Dextrose (Dextrose 50%) 50 ml Q30M PRN IV hypoglycemia 12/29/19 11:15 03/28/20 11:14 12/31/19 21:10 Divalproex Sodium (Depakote Sprinkles) 250 mg Q12HR ORAL 01/01/20 09:00 01/31/20 08:59 01/02/20 08:27 Docusate Sodium (Colace) 100 mg THREE TIMES A DAY ORAL 01/01/20 09:00 01/31/20 08:59 01/02/20 12:18 Haloperidol (Haldol) 5 mg TID ORAL 12/27/19 13:00 02/04/20 13:59 01/02/20 12:18 Heparin Sodium (Porcine) (Heparin 5000 units/ml) 5,000 units EVERY 12 HOURS SUBQ 12/27/19 21:00 02/09/20 08:59 01/02/20 08:07 Hydralazine HCl (Apresoline) 10 mg Q4H PRN IV Blood pressure over 160 systol 12/27/19 12:45 03/24/20 16:37 Pantoprazole (Protonix) 40 mg EVERY 12 HOURS IVP 12/27/19 21:00 01/24/20 20:59 01/02/20 08:25 Ziprasidone (Geodon) 40 mg Q12HR ORAL 12/27/19 21:00 02/04/20 20:59 01/02/20 08:25 Subhash Yang MD Jan 02, 2020 18:21
[2020-01-02] MEDS ORDERED: Lidocaine 1% Plain 30 ml INJ PRN (18:30)
[2020-01-02] MEDS ORDERED: Heparin1,000 units/500ml Premix(Conc:2 units/ml) IV PRN (18:30)
--- NOTE | 2020-01-02 18:30 | NUR ---
NURSE NOTES: Notified Dr Yang of patient change of condition.
--- NOTE | 2020-01-02 18:50 | Hematology/Onc Progress Note ---
Assessment/Plan Assessment/Plan Assessment and recs # Thrombocytopenia - potential causes multifactorial, evaluate liver and viral etiologies to begin, also could be related to underlying medications patient has received. covid19++ also s/p ventral hernia repair --> Hep panel and HIV pending --> US abd: Diffusely increased hepatic echogenicity, consistent with diffuse hepatocellular disease, most likely fatty change --> Peripheral smear ordered to evaluate for blasts /schistocytes --> abx and other meds have been reviewed --> ok for ppx if plt >50k w/ either heparin or lovenox --> Transfuse if Plt < 20k and fever, or if Plt < 10k without fever --> plt 143-->115-->98->125->220->321 --> abx ctx # Anemia of iron deficiency, unspecified rule out gi bleed --> obtain a anemia panel, has been ordered --> will/have begun on iv iron and continue x 5 doses --> review if occult blood is + (review this to make sure +). Can consider gi eval --> hgb goal is >7, transfuse as needed --> trend CBC daily to make sure no major acute drop --> no evidence of hemolysis noted --> hgb 8-->8.5->10.4->10->8.8->8.3 # Coagulopathy likely due to covid19++ in adition to vit k depletion --> have dw Pollodmitriyzia, will give ffp and vitk --> recheck inr / ptt after surgery-->improved # Acute febrile illness due to covid19+++ --> due to Suspected 2019-nCoV infection -> on abx --> steriods ahve been given # Atypical pneumonia # Hernia, ventral --> sp surgical repair and revision 12/24 # Hypernatremia # Hypoglycemia # E..coli sepsis # COVID 19 pneumonia # Hypertension # renal failure # Bipolar disorder # Asthma # Dvt ppx heparin sq The timing of this note does not necessarily reflect the time of the patient was seen. Greatly appreciate consultation. Subjective Allergies: Coded Allergies: IBUPROFEN (Verified Allergy, Unknown, 12/20/19) Subjective 12/24 abdominal mild pain with ttp, to see by surg for discussion re surgery today 12/25 intubated, no bleeding, meds reviewed, labs noted, dw ID 12/26 extubate,d no bleeding, meds noted, surgical site c/d/i, feeling better 12/28 on nc, improved, labs noted, hgb recovering 12/29 labs reviewed, on nc, no bleeding hgb 10 12/30 meds are noted, no bleeding, hgb 8.8, no hemolysis 12/31 asymptomatic, is on 2l nc, no bleeding, labs pending 01/01 covid+, h/h stable, nc 2l, no distress Objective Objective Current Medications Medications (Trade) Dose Ordered Sig/Venita Route PRN Reason Start Time Stop Time Status Last Admin Dose Admin Benztropine Mesylate (Cogentin) 2 mg BID ORAL 12/27/19 18:00 01/20/20 08:59 01/02/20 18:00 Chlorhexidine Gluconate (Edwina-Hex 2%) 1 applic DAILY@2000 TOPIC 01/02/20 20:00 04/01/20 19:59 UNV Dextrose 1,000 ml @ 100 mls/hr Q10H IV 12/31/19 23:00 01/30/20 22:59 01/02/20 05:07 Dextrose (Dextrose 50%) 25 ml Q30M PRN IV Hypoglycemia 12/29/19 11:15 01/28/20 11:07 01/01/20 23:40 Dextrose (Dextrose 50%) 50 ml Q30M PRN IV hypoglycemia 12/29/19 11:15 03/28/20 11:14 12/31/19 21:10 Divalproex Sodium (Depakote Sprinkles) 250 mg Q12HR ORAL 01/01/20 09:00 01/31/20 08:59 01/02/20 08:27 Docusate Sodium (Colace) 100 mg THREE TIMES A DAY ORAL 01/01/20 09:00 01/31/20 08:59 01/02/20 18:00 Haloperidol (Haldol) 5 mg TID ORAL 12/27/19 13:00 02/04/20 13:59 01/02/20 18:00 Heparin Sodium (Porcine) (Heparin 5000 units/ml) 5,000 units EVERY 12 HOURS SUBQ 12/27/19 21:00 02/09/20 08:59 01/02/20 08:07 Heparin Sodium/ Sodium Chloride (Heparin 1000 units/500ml Premix) 1,000 unit ONCE ONCE IV 01/02/20 18:30 01/02/20 18:31 UNV Hydralazine HCl (Apresoline) 10 mg Q4H PRN IV Blood pressure over 160 systol 12/27/19 12:45 03/24/20 16:37 Lidocaine HCl (Xylocaine 1% 30ml) 30 ml ONCE ONCE INJ 01/02/20 18:30 01/02/20 18:31 UNV Pantoprazole (Protonix) 40 mg EVERY 12 HOURS IVP 12/27/19 21:00 01/24/20 20:59 01/02/20 08:25 Ziprasidone (Geodon) 40 mg Q12HR ORAL 12/27/19 21:00 02/04/20 20:59 01/02/20 08:25 Last 24 Hour Vital Signs Date Time Temp Pulse Resp B/P (MAP) Pulse Ox O2 Delivery O2 Flow Rate FiO2 01/02/20 16:00 115 01/02/20 16:00 Nasal Cannula 2.0 Nasal Cannula 5.0 01/02/20 16:00 98.2 127 20 115/64 (81) 92 01/02/20 12:00 98.1 115 16 123/84 (97) 95 01/02/20 12:00 106 01/02/20 12:00 Nasal Cannula 2.0 Nasal Cannula 2.0 01/02/20 08:00 Nasal Cannula 2.0 Nasal Cannula 2.0 01/02/20 08:00 98.1 113 16 100/70 (80) 98 01/02/20 08:00 126 01/02/20 04:00 Nasal Cannula 2.0 Nasal Cannula 2.0 01/02/20 04:00 98.5 119 20 113/61 (78) 98 01/02/20 04:00 109 01/02/20 00:00 116 01/02/20 00:00 98.3 115 20 95/56 (69) 98 01/02/20 00:00 Nasal Cannula 2.0 Nasal Cannula 2.0 01/01/20 20:00 Nasal Cannula 2.0 Nasal Cannula 2.0 01/01/20 20:00 98.1 120 20 114/60 (78) 98 01/01/20 20:00 120 01/01/20 16:00 Nasal Cannula 2.0 Nasal Cannula 2.0 01/01/20 16:00 119 01/01/20 16:00 98.2 125 16 111/85 (94) 97 01/01/20 12:00 113 01/01/20 12:00 Nasal Cannula 2.0 Nasal Cannula 2.0 01/01/20 12:00 97.7 112 18 114/97 (103) 97 01/01/20 08:00 Nasal Cannula 4.0 Nasal Cannula 4.0 01/01/20 08:00 98.7 117 18 105/78 (87) 100 01/01/20 08:00 116 01/01/20 04:00 98.1 110 20 115/75 (88) 100 01/01/20 04:00 Nasal Cannula 2.0 Nasal Cannula 2.0 01/01/20 03:36 93 01/01/20 00:00 Nasal Cannula 2.0 Nasal Cannula 2.0 01/01/20 00:00 98.2 96 20 102/70 (81) 100 12/31/19 23:37 109 12/31/19 20:00 104 12/31/19 20:00 97.5 105 20 101/68 (79) 100 12/31/19 20:00 Nasal Cannula 2.0 Nasal Cannula 2.0 Intake and Output 01/01/20 01/02/20 19:00 07:00 Intake Total 1683.38513 ml 1100 ml Output Total 1600 ml 1500 ml Balance 83.55453 ml -400 ml Intake Oral 500 ml 100 ml IV Total 1183.66114 ml 1000 ml Output Urine Total 1600 ml 1500 ml Labs Test 12/30/19 20:46 12/31/19 04:20 12/31/19 05:29 12/31/19 06:12 POC Whole Blood Glucose 98 MG/DL (74-106) 79 MG/DL (74-106) White Blood Count 9.1 K/UL (4.8-10.8) Red Blood Count 2.74 M/UL (4.20-5.40) Hemoglobin 8.8 G/DL (12.0-16.0) Hematocrit 28.4 % (37.0-47.0) Mean Corpuscular Volume 104 FL (80-99) Mean Corpuscular Hemoglobin 32.0 PG (27.0-31.0) Mean Corpuscular Hemoglobin Concent 30.9 G/DL (32.0-36.0) Red Cell Distribution Width 15.4 % (11.6-14.8) Platelet Count 233 K/UL (150-450) Mean Platelet Volume 6.0 FL (6.5-10.1) Neutrophils (%) (Auto) 52.9 % (45.0-75.0) Lymphocytes (%) (Auto) 35.3 % (20.0-45.0) Monocytes (%) (Auto) 8.7 % (1.0-10.0) Eosinophils (%) (Auto) 0.8 % (0.0-3.0) Basophils (%) (Auto) 2.3 % (0.0-2.0) Sodium Level 150 MMOL/L (136-145) Potassium Level 3.8 MMOL/L (3.5-5.1) Chloride Level 116 MMOL/L (98-107) Carbon Dioxide Level 26 MMOL/L (21-32) Anion Gap 8 mmol/L (5-15) Blood Urea Nitrogen 9 mg/dL (7-18) Creatinine 1.1 MG/DL (0.55-1.30) Estimat Glomerular Filtration Rate > 60 mL/min (>60) Glucose Level 80 MG/DL (74-106) Insulin Level 2.1 uIU/mL (2.6-24.9) Uric Acid 5.8 MG/DL (2.6-7.2) Calcium Level 7.0 MG/DL (8.5-10.1) Phosphorus Level 2.5 MG/DL (2.5-4.9) Magnesium Level 1.7 MG/DL (1.8-2.4) Total Bilirubin 0.2 MG/DL (0.2-1.0) Aspartate Amino Transf (AST/SGOT) 15 U/L (15-37) Alanine Aminotransferase (ALT/SGPT) 13 U/L (12-78) Alkaline Phosphatase 88 U/L (46-116) Total Protein 5.2 G/DL (6.4-8.2) Albumin 1.2 G/DL (3.4-5.0) Globulin 4.0 g/dL Albumin/Globulin Ratio 0.3 (1.0-2.7) Cortisol 12.0 UG/DL Test 12/31/19 13:18 12/31/19 13:45 12/31/19 13:51 12/31/19 14:36 POC Whole Blood Glucose 68 MG/DL (74-106) 23 MG/DL (74-106) 25 MG/DL (74-106) 154 MG/DL (74-106) Test 12/31/19 16:42 12/31/19 17:30 12/31/19 22:16 01/01/20 03:41 POC Whole Blood Glucose 53 MG/DL (74-106) 148 MG/DL (74-106) 118 MG/DL (74-106) Test 01/01/20 05:39 01/01/20 11:45 01/01/20 22:01 01/01/20 22:48 POC Whole Blood Glucose 75 MG/DL (74-106) 66 MG/DL (74-106) 62 MG/DL (74-106) White Blood Count 10.2 K/UL (4.8-10.8) Red Blood Count 2.91 M/UL (4.20-5.40) Hemoglobin 9.2 G/DL (12.0-16.0) Hematocrit 29.9 % (37.0-47.0) Mean Corpuscular Volume 103 FL (80-99) Mean Corpuscular Hemoglobin 31.5 PG (27.0-31.0) Mean Corpuscular Hemoglobin Concent 30.6 G/DL (32.0-36.0) Red Cell Distribution Width 15.6 % (11.6-14.8) Platelet Count 320 K/UL (150-450) Mean Platelet Volume 5.5 FL (6.5-10.1) Neutrophils (%) (Auto) 58.1 % (45.0-75.0) Lymphocytes (%) (Auto) 33.4 % (20.0-45.0) Monocytes (%) (Auto) 7.6 % (1.0-10.0) Eosinophils (%) (Auto) 0.1 % (0.0-3.0) Basophils (%) (Auto) 0.9 % (0.0-2.0) Sodium Level 146 MMOL/L (136-145) Potassium Level 4.3 MMOL/L (3.5-5.1) Chloride Level 113 MMOL/L (98-107) Carbon Dioxide Level 31 MMOL/L (21-32) Anion Gap 2 mmol/L (5-15) Blood Urea Nitrogen 6 mg/dL (7-18) Creatinine 0.9 MG/DL (0.55-1.30) Estimat Glomerular Filtration Rate > 60 mL/min (>60) Glucose Level 117 MG/DL (74-106) Calcium Level 7.1 MG/DL (8.5-10.1) Magnesium Level 2.0 MG/DL (1.8-2.4) Test 01/01/20 23:05 01/02/20 00:27 01/02/20 00:28 01/02/20 04:25 POC Whole Blood Glucose 64 MG/DL (74-106) 21 MG/DL (74-106) 102 MG/DL (74-106) White Blood Count 10.2 K/UL (4.8-10.8) Red Blood Count 2.66 M/UL (4.20-5.40) Hemoglobin 8.3 G/DL (12.0-16.0) Hematocrit 27.4 % (37.0-47.0) Mean Corpuscular Volume 103 FL (80-99) Mean Corpuscular Hemoglobin 31.4 PG (27.0-31.0) Mean Corpuscular Hemoglobin Concent 30.4 G/DL (32.0-36.0) Red Cell Distribution Width 15.4 % (11.6-14.8) Platelet Count 321 K/UL (150-450) Mean Platelet Volume 4.7 FL (6.5-10.1) Neutrophils (%) (Auto) 53.5 % (45.0-75.0) Lymphocytes (%) (Auto) 38.3 % (20.0-45.0) Monocytes (%) (Auto) 6.5 % (1.0-10.0) Eosinophils (%) (Auto) 0.2 % (0.0-3.0) Basophils (%) (Auto) 1.4 % (0.0-2.0) Sodium Level 147 MMOL/L (136-145) Potassium Level 5.0 MMOL/L (3.5-5.1) Chloride Level 115 MMOL/L (98-107) Carbon Dioxide Level 28 MMOL/L (21-32) Anion Gap 4 mmol/L (5-15) Blood Urea Nitrogen 12 mg/dL (7-18) Creatinine 1.0 MG/DL (0.55-1.30) Estimat Glomerular Filtration Rate > 60 mL/min (>60) Glucose Level 63 MG/DL (74-106) Calcium Level 7.4 MG/DL (8.5-10.1) Test 01/02/20 05:23 01/02/20 12:29 01/02/20 12:32 01/02/20 12:45 POC Whole Blood Glucose 85 MG/DL (74-106) 12 MG/DL (74-106) Test 01/02/20 13:25 01/02/20 15:48 01/02/20 15:49 01/02/20 17:30 Glucose Level 135 MG/DL (74-106) POC Whole Blood Glucose 63 MG/DL (74-106) 74 MG/DL (74-106) Height (Feet): 5 Height (Inches): 4.00 Weight (Pounds): 165 Objective Physical Exam: Vitals: reviewed General: NAD HEENT: nc, at Neck: supple Chest: clear breath sounds bilaterally+ nc Cardiovascular: RRR, no s3, s4 Abdomen: soft, nontender, ttp in upper quands, abd surgical scar c/d/i Extremities: no cce, normal range of motion Neuro: alert and oriented Charanjit Sandoval MD Jan 02, 2020 18:50
--- NOTE | 2020-01-02 18:51 | Diagnostic Imaging Report ---
EXAM: XR Abdomen, 1 View CLINICAL HISTORY: NGT TECHNIQUE: Frontal supine view of the abdomen/pelvis. COMPARISON: No relevant prior studies available. FINDINGS/IMPRESSION: NG tube at GE junction, sidehole in distal esophagus.
--- NOTE | 2020-01-02 18:53 | NUR ---
NURSE NOTES: Spoke to Dr. Potter and Dr. Hobson about patient low blood sugar,no IV access after failed attempts,referred to Dr. Vargas for central line placement-not available,place order for PICC placement in AM,Dr. Hobson ordered NGT for feeding,DOT Eisenberg inserted,abdominal X-ray done,waiting for confirmation,continue to monitor
--- NOTE | 2020-01-02 19:00 | NUR ---
NURSE NOTES: Bilat soft restraints placed on pt. Order recvd from Dr Potter.
--- NOTE | 2020-01-02 19:25 | NUR ---
NURSE NOTES: Report received from DOT Eisenberg. Observed pt lying in the bed, awake, confused. 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 On 4L, NC, no sob. NGT on L Nares, will start tube feeding, Glucerna 1.2 at 30cc/hr. Purewick in placed. No IV access at this time, PICC placement pending, Will try to start IV. Bilateral wrists no distress noted. Bed in the lowest position. Side rails up x3. Call light within reach. Will continue to monitor.
[2020-01-02 20:00] VITALS: BP 122/62
--- NOTE | 2020-01-02 20:00 | NUR ---
NURSE NOTES: Was unable to put NGT, noted tube coiled in mouth, pt non-compliant and combative. Will continue to monitor.
--- NOTE | 2020-01-02 21:30 | NUR ---
NURSE NOTES: pt refused meds, explained risks and benefits, still refused. Will continue to monitor.
--- NOTE | 2020-01-02 21:30 | NUR ---
NURSE NOTES: Was unable to establish IV access. Pt agitated and states, "No more needles," Will continue to monitor.
--- NOTE | 2020-01-02 22:37 | NUR ---
NURSE NOTES: Was unable to put NGT, pt not cooperative and combative. Another RN tried and was unable to put in. Will continue to monitor. Noted BS of 81 at this time.
[2020-01-03] VITALS: BP 111/77
[2020-01-03] MEDS: Dextrose 10% 1,000 ML IV SCH ×2 (01:00→11:21)
--- NOTE | 2020-01-03 03:00 | NUR ---
NURSE NOTES: Was unable to put NGT, pt does not cooperate, shaking her head back and forth. No acute change at this time. No signs of hypoglycemia noted. Will continue to monitor.
[2020-01-03 04:00] VITALS: BP 119/78
[2020-01-03 05:22] LABS: BASOPHILS % (AUTO) 2.4 % (0.0-2.0); HEMATOCRIT 29.9 % (37.0-47.0); HEMOGLOBIN 9.3 G/DL (12.0-16.0); LYMPHOCYTES % (AUTO) 34.3 % (20.0-45.0); MEAN CORPUSCULAR VOLUME 103 FL (80-99); MONOCYTES % (AUTO) 5.4 % (1.0-10.0); NEUTROPHILS % (AUTO) 57.9 % (45.0-75.0); PLATELET COUNT 315 K/UL (150-450); RED CELL DISTRIBUTION WIDTH 15.9 % (11.6-14.8); WHITE BLOOD COUNT 10.1 K/UL (4.8-10.8)
--- NOTE | 2020-01-03 05:50 | NUR ---
NURSE NOTES: BS of 57 noted, juice given, and checked again after 15 mins, BS of 99 noted. Pt asymptomatic. Will continue to monitor.
--- NOTE | 2020-01-03 06:44 | General Progress Note ---
Assessment/Plan Problem List: (1) Suspected 2019-nCoV infection ICD Codes: Z20.828 - Contact with and (suspected) exposure to other viral communicable diseases SNOMED: 774329540 (2) Hypoglycemia ICD Codes: E16.2 - Hypoglycemia, unspecified SNOMED: 015540229 (3) Hypernatremia ICD Codes: E87.0 - Hyperosmolality and hypernatremia SNOMED: 760869713 (4) Atypical pneumonia ICD Codes: J18.9 - Pneumonia, unspecified organism SNOMED: 162939398 (5) Acute febrile illness ICD Codes: R50.9 - Fever, unspecified SNOMED: 625421234 Status: unchanged Assessment/Plan: recurrent hypoglycemia due to COVID-19 infection and malnutrition - no evidence of insulin oversecretion or adrenal insufficiency NGT placement for TF PICC placement for IVF Glucagon injection PRN hypoglycemia continue glucose monitoring without insulin coverage Subjective ROS Limited/Unobtainable: Yes Allergies: Coded Allergies: IBUPROFEN (Verified Allergy, Unknown, 12/20/19) Subjective events noted glucose running on the low side no IV access no NGT Item Value Date Time Bedside Blood Glucose 99 mg/dl 01/03/20 0548 Bedside Blood Glucose 81 mg/dl 01/02/20 2100 Bedside Blood Glucose 82 mg/dl 01/02/20 1630 Bedside Blood Glucose 82 mg/dl 01/02/20 1130 Bedside Blood Glucose 85 mg/dl 01/02/20 0604 Objective Last 24 Hour Vital Signs Date Time Temp Pulse Resp B/P (MAP) Pulse Ox O2 Delivery O2 Flow Rate FiO2 01/03/20 04:00 97.0 126 22 119/78 (92) 100 01/03/20 04:00 123 01/03/20 04:00 Nasal Cannula 4.0 Nasal Cannula 4.0 01/03/20 00:00 97.4 125 24 111/77 (88) 100 01/03/20 00:00 117 01/03/20 00:00 Nasal Cannula 4.0 Nasal Cannula 4.0 01/02/20 20:00 110 01/02/20 20:00 Nasal Cannula 4.0 Nasal Cannula 4.0 01/02/20 20:00 97.5 127 24 122/62 (82) 100 01/02/20 16:00 115 01/02/20 16:00 Nasal Cannula 2.0 Nasal Cannula 5.0 01/02/20 16:00 98.2 127 20 115/64 (81) 92 01/02/20 12:00 98.1 115 16 123/84 (97) 95 01/02/20 12:00 106 01/02/20 12:00 Nasal Cannula 2.0 Nasal Cannula 2.0 01/02/20 08:00 Nasal Cannula 2.0 Nasal Cannula 2.0 01/02/20 08:00 98.1 113 16 100/70 (80) 98 01/02/20 08:00 126 Intake and Output 01/02/20 01/03/20 19:00 07:00 Intake Total 700 ml 500 ml Output Total 1000 ml 1000 ml Balance -300 ml -500 ml Intake Oral 700 ml 500 ml Output Urine Total 1000 ml 1000 ml Laboratory Tests 01/02/20 12:29: POC Whole Blood Glucose 12*L 01/02/20 12:32: POC Whole Blood Glucose [Pending] 01/02/20 12:45: POC Whole Blood Glucose [Pending] 01/02/20 13:25: Glucose Level 135H 01/02/20 15:48: POC Whole Blood Glucose 63L 01/02/20 15:49: POC Whole Blood Glucose [Pending] 01/02/20 17:30: POC Whole Blood Glucose 74 01/02/20 21:59: POC Whole Blood Glucose 71L 01/02/20 22:01: POC Whole Blood Glucose 81 01/03/20 04:46: White Blood Count 10.1, Red Blood Count 2.90L, Hemoglobin 9.3L, Hematocrit 29.9L , Mean Corpuscular Volume 103H, Mean Corpuscular Hemoglobin 32.1H, Mean Corpuscular Hemoglobin Concent 31.2L, Red Cell Distribution Width 15.9H, Platelet Count 315, Mean Platelet Volume 4.5L, Neutrophils (%) (Auto) 57.9, Lymphocytes (%) (Auto) 34.3, Monocytes (%) (Auto) 5.4, Eosinophils (%) (Auto) 0.0, Basophils (%) (Auto) 2.4H, Sodium Level [Pending], Potassium Level [Pending ], Chloride Level [Pending], Carbon Dioxide Level [Pending], Blood Urea Nitrogen [Pending], Creatinine [Pending], Estimat Glomerular Filtration Rate [ Pending], Glucose Level [Pending], Calcium Level [Pending] 01/03/20 05:29: POC Whole Blood Glucose 57L 01/03/20 05:45: POC Whole Blood Glucose 99 Height (Feet): 5 Height (Inches): 4.00 Weight (Pounds): 170 Objective Current Medications Medications (Trade) Dose Ordered Sig/Venita Route PRN Reason Start Time Stop Time Status Last Admin Dose Admin Benztropine Mesylate (Cogentin) 2 mg BID ORAL 12/27/19 18:00 01/20/20 08:59 01/02/20 18:00 Chlorhexidine Gluconate (Edwina-Hex 2%) 1 applic DAILY@2000 TOPIC 01/03/20 20:00 04/02/20 19:59 Dextrose 1,000 ml @ 100 mls/hr Q10H IV 12/31/19 23:00 01/30/20 22:59 01/02/20 05:07 Dextrose (Dextrose 50%) 25 ml Q30M PRN IV Hypoglycemia 12/29/19 11:15 01/28/20 11:07 01/01/20 23:40 Dextrose (Dextrose 50%) 50 ml Q30M PRN IV hypoglycemia 12/29/19 11:15 03/28/20 11:14 12/31/19 21:10 Divalproex Sodium (Depakote Sprinkles) 250 mg Q12HR ORAL 01/01/20 09:00 01/31/20 08:59 01/02/20 08:27 Docusate Sodium (Colace) 100 mg THREE TIMES A DAY ORAL 01/01/20 09:00 01/31/20 08:59 01/02/20 18:00 Haloperidol (Haldol) 5 mg TID ORAL 12/27/19 13:00 02/04/20 13:59 01/02/20 18:00 Heparin Sodium (Porcine) (Heparin 5000 units/ml) 5,000 units EVERY 12 HOURS SUBQ 12/27/19 21:00 02/09/20 08:59 01/02/20 08:07 Heparin Sodium/ Sodium Chloride (Heparin 1000 units/500ml Premix) 1,000 unit ONCE PRN IV PICC PLACEMENT 01/02/20 18:30 01/03/20 23:59 Hydralazine HCl (Apresoline) 10 mg Q4H PRN IV Blood pressure over 160 systol 12/27/19 12:45 03/24/20 16:37 Lidocaine HCl (Xylocaine 1% 30ml) 30 ml ONCE PRN INJ PICC PLACEMENT 01/02/20 18:30 01/03/20 23:59 Pantoprazole (Protonix) 40 mg EVERY 12 HOURS IVP 12/27/19 21:00 01/24/20 20:59 01/02/20 08:25 Ziprasidone (Geodon) 40 mg Q12HR ORAL 12/27/19 21:00 02/04/20 20:59 01/02/20 08:25 Subhash Yang MD Jan 03, 2020 06:44
--- NOTE | 2020-01-03 07:17 | NUR ---
HAND-OFF: Report given to DOT Pedraza.
[2020-01-03 08:00] VITALS: BP 114/84
--- NOTE | 2020-01-03 08:00 | Progress Note ---
DATE: 01/02/2020 PSYCHOTHERAPY CONSULTATION PROGRESS NOTE TREATING ATTENDING: Ricky Potter D.O. Patient is a 54-year-old female patient with a diagnosis of schizoaffective disorder, bipolar type. This patient , disorganized, and paranoid. It is difficult for her to focus and concentrate and she has had difficulty with this, however, is redirectable and today was able to participate. She states that she feels anxious, she rates her anxiety 8/10 on a , however does not know what is triggering her anxiety. She go home. She feels helpless. When I assessed the patient, she is alert, oriented to person and place. Mood is anxious. Affect calm. Thought process, disorganized. She has poor attention and concentration. Poor insight. Poor impulse control. I provided her with: 1. Reality orientation focused on improving cognitive level of function as the patient is very confused and disorganized. Patient is oriented to person, place, time, and situation. 2. Provided the patient with supportive psychotherapy. 3. Encouraged the patient to communicate and process her thoughts utilizing positive communication skills. Plan is to maintain medication compliance to stabilize mood, thought and behavior. Psychotherapy service provided for this patient is 20 minutes. This clinician has reviewed the patient's chart and discussed treatment with treatment team. Hugo Ayala PsyD. DR: GINGER JOB#: [id number] CC:
[2020-01-03] MEDS: Benztropine 1mg tab ORAL SCH (08:07)
[2020-01-03] MEDS: Depakote 125mg Sprinkles ORAL SCH (08:08)
[2020-01-03] MEDS: Docusate 100mg/10ml Liq ORAL SCH ×2 (08:08→12:55)
[2020-01-03] MEDS: Pantoprazole Inj IVP SCH (08:08)
[2020-01-03] MEDS: Ziprasidone 20mg cap ORAL SCH (08:08)
[2020-01-03] MEDS: Heparin 5000 units/ml inj SUBQ SCH (08:10)
--- NOTE | 2020-01-03 08:57 | Hematology/Onc Progress Note ---
Assessment/Plan Assessment/Plan Assessment and recs # Thrombocytopenia - potential causes multifactorial, evaluate liver and viral etiologies to begin, also could be related to underlying medications patient has received. covid19++++++++++ also s/p ventral hernia repair --> Hep panel and HIV pending --> US abd: Diffusely increased hepatic echogenicity, consistent with diffuse hepatocellular disease, most likely fatty change --> Peripheral smear ordered to evaluate for blasts /schistocytes --> abx and other meds have been reviewed --> ok for ppx if plt >50k w/ either heparin or lovenox --> Transfuse if Plt < 20k and fever, or if Plt < 10k without fever --> plt 143-->115-->98->125->220->321 --> abx ctx # Anemia of iron deficiency, unspecified rule out gi bleed --> obtain a anemia panel, has been ordered --> will/have begun on iv iron and continue x 5 doses --> review if occult blood is + (review this to make sure +). Can consider gi eval --> hgb goal is >7, transfuse as needed --> trend CBC daily to make sure no major acute drop --> no evidence of hemolysis noted --> hgb 8-->8.5->10.4->10->8.8->8.3-->9.3 # Coagulopathy likely due to covid19++ in adition to vit k depletion --> have jamilah Vargas, will give ffp and vitk --> recheck inr / ptt after surgery-->improved # Acute febrile illness due to covid19+++ --> due to Suspected 2019-nCoV infection -> on abx --> steriods ahve been given # Atypical pneumonia # Hernia, ventral --> sp surgical repair and revision 12/24 # Hypernatremia # Hypoglycemia # E..coli sepsis # COVID 19 pneumonia # Hypertension # renal failure # Bipolar disorder # Asthma # Dvt ppx heparin sq The timing of this note does not necessarily reflect the time of the patient was seen. Greatly appreciate consultation. Subjective HEENT: Denies: no symptoms, eye pain, blurred vision, tearing, double vision, ear pain, ear discharge, nose pain, nose congestion, throat pain, throat swelling, mouth pain, mouth swelling, other Cardiovascular: Denies: no symptoms, chest pain, edema, irregular heart rate, lightheadedness, palpitations, syncope, other Gastrointestinal/Abdominal: Denies: no symptoms, abdomen distended, abdominal pain, black stools, tarry stools, blood in stool, constipated, diarrhea, difficulty swallowing, nausea, poor appetite, poor fluid intake, rectal bleeding , vomiting, other Genitourinary: Denies: no symptoms, burning, discharge, frequency, flank pain, hematuria, incontinence, pain, urgency, other Neurologic/Psychiatric: Denies: no symptoms, anxiety, depressed, emotional problems, headache, numbness, paresthesia, pre-existing deficit, seizure, tingling, tremors, weakness, other Endocrine: Denies: no symptoms, excessive sweating, flushing, intolerance to cold, intolerance to heat, increased hunger, increased thirst, increased urine, unexplained weight gain, unexplained weight loss, other Allergies: Coded Allergies: IBUPROFEN (Verified Allergy, Unknown, 12/20/19) Subjective 12/24 abdominal mild pain with ttp, to see by surg for discussion re surgery today 12/25 intubated, no bleeding, meds reviewed, labs noted, dw ID 12/26 extubate,d no bleeding, meds noted, surgical site c/d/i, feeling better 12/28 on nc, improved, labs noted, hgb recovering 12/29 labs reviewed, on nc, no bleeding hgb 10 12/30 meds are noted, no bleeding, hgb 8.8, no hemolysis 12/31 asymptomatic, is on 2l nc, no bleeding, labs pending 01/01 covid+, h/h stable, nc 2l, no distress 01/02 meds noted, no bleeding, hgb 9.3, no hemolysis Objective Objective Current Medications Medications (Trade) Dose Ordered Sig/Venita Route PRN Reason Start Time Stop Time Status Last Admin Dose Admin Benztropine Mesylate (Cogentin) 2 mg BID ORAL 12/27/19 18:00 01/20/20 08:59 01/03/20 08:07 Chlorhexidine Gluconate (Edwina-Hex 2%) 1 applic DAILY@1999 TOPIC 01/03/20 20:00 04/02/20 19:59 Dextrose 1,000 ml @ 100 mls/hr Q10H IV 12/31/19 23:00 01/30/20 22:59 01/02/20 05:07 Dextrose (Dextrose 50%) 25 ml Q30M PRN IV Hypoglycemia 12/29/19 11:15 01/28/20 11:07 01/01/20 23:40 Dextrose (Dextrose 50%) 50 ml Q30M PRN IV hypoglycemia 12/29/19 11:15 03/28/20 11:14 12/31/19 21:10 Divalproex Sodium (Depakote Sprinkles) 250 mg Q12HR ORAL 01/01/20 09:00 01/31/20 08:59 01/03/20 08:08 Docusate Sodium (Colace) 100 mg THREE TIMES A DAY ORAL 01/01/20 09:00 01/31/20 08:59 01/03/20 08:08 Haloperidol (Haldol) 5 mg TID ORAL 12/27/19 13:00 02/04/20 13:59 01/03/20 08:07 Heparin Sodium (Porcine) (Heparin 5000 units/ml) 5,000 units EVERY 12 HOURS SUBQ 12/27/19 21:00 02/09/20 08:59 01/03/20 08:10 Heparin Sodium/ Sodium Chloride (Heparin 1000 units/500ml Premix) 1,000 unit ONCE PRN IV PICC PLACEMENT 01/02/20 18:30 01/03/20 23:59 Hydralazine HCl (Apresoline) 10 mg Q4H PRN IV Blood pressure over 160 systol 12/27/19 12:45 03/24/20 16:37 Lidocaine HCl (Xylocaine 1% 30ml) 30 ml ONCE PRN INJ PICC PLACEMENT 01/02/20 18:30 01/03/20 23:59 Pantoprazole (Protonix) 40 mg EVERY 12 HOURS IVP 12/27/19 21:00 01/24/20 20:59 01/03/20 08:08 Ziprasidone (Geodon) 40 mg Q12HR ORAL 12/27/19 21:00 02/04/20 20:59 01/03/20 08:08 Last 24 Hour Vital Signs Date Time Temp Pulse Resp B/P (MAP) Pulse Ox O2 Delivery O2 Flow Rate FiO2 01/03/20 08:00 96.8 119 18 114/84 (94) 100 01/03/20 07:52 Nasal Cannula 4.0 Nasal Cannula 4.0 01/03/20 04:00 97.0 126 22 119/78 (92) 100 01/03/20 04:00 123 01/03/20 04:00 Nasal Cannula 4.0 Nasal Cannula 4.0 01/03/20 00:00 97.4 125 24 111/77 (88) 100 01/03/20 00:00 117 01/03/20 00:00 Nasal Cannula 4.0 Nasal Cannula 4.0 01/02/20 20:00 110 01/02/20 20:00 Nasal Cannula 4.0 Nasal Cannula 4.0 01/02/20 20:00 97.5 127 24 122/62 (82) 100 01/02/20 16:00 115 01/02/20 16:00 Nasal Cannula 2.0 Nasal Cannula 5.0 01/02/20 16:00 98.2 127 20 115/64 (81) 92 01/02/20 12:00 98.1 115 16 123/84 (97) 95 01/02/20 12:00 106 01/02/20 12:00 Nasal Cannula 2.0 Nasal Cannula 2.0 01/02/20 08:00 Nasal Cannula 2.0 Nasal Cannula 2.0 01/02/20 08:00 98.1 113 16 100/70 (80) 98 01/02/20 08:00 126 01/02/20 04:00 Nasal Cannula 2.0 Nasal Cannula 2.0 01/02/20 04:00 98.5 119 20 113/61 (78) 98 01/02/20 04:00 109 01/02/20 00:00 116 01/02/20 00:00 98.3 115 20 95/56 (69) 98 01/02/20 00:00 Nasal Cannula 2.0 Nasal Cannula 2.0 01/01/20 20:00 Nasal Cannula 2.0 Nasal Cannula 2.0 01/01/20 20:00 98.1 120 20 114/60 (78) 98 01/01/20 20:00 120 01/01/20 16:00 Nasal Cannula 2.0 Nasal Cannula 2.0 01/01/20 16:00 119 01/01/20 16:00 98.2 125 16 111/85 (94) 97 01/01/20 12:00 113 01/01/20 12:00 Nasal Cannula 2.0 Nasal Cannula 2.0 01/01/20 12:00 97.7 112 18 114/97 (103) 97 Intake and Output 01/02/20 01/03/20 19:00 07:00 Intake Total 700 ml 500 ml Output Total 1000 ml 1000 ml Balance -300 ml -500 ml Intake Oral 700 ml 500 ml Output Urine Total 1000 ml 1000 ml Labs Test 12/31/19 13:18 12/31/19 13:45 12/31/19 13:51 12/31/19 14:36 POC Whole Blood Glucose 68 MG/DL (74-106) 23 MG/DL (74-106) 25 MG/DL (74-106) 154 MG/DL (74-106) Test 12/31/19 16:42 12/31/19 17:30 12/31/19 22:16 01/01/20 03:41 POC Whole Blood Glucose 53 MG/DL (74-106) 148 MG/DL (74-106) 118 MG/DL (74-106) Test 01/01/20 05:39 01/01/20 11:45 01/01/20 22:01 01/01/20 22:48 POC Whole Blood Glucose 75 MG/DL (74-106) 66 MG/DL (74-106) 62 MG/DL (74-106) White Blood Count 10.2 K/UL (4.8-10.8) Red Blood Count 2.91 M/UL (4.20-5.40) Hemoglobin 9.2 G/DL (12.0-16.0) Hematocrit 29.9 % (37.0-47.0) Mean Corpuscular Volume 103 FL (80-99) Mean Corpuscular Hemoglobin 31.5 PG (27.0-31.0) Mean Corpuscular Hemoglobin Concent 30.6 G/DL (32.0-36.0) Red Cell Distribution Width 15.6 % (11.6-14.8) Platelet Count 320 K/UL (150-450) Mean Platelet Volume 5.5 FL (6.5-10.1) Neutrophils (%) (Auto) 58.1 % (45.0-75.0) Lymphocytes (%) (Auto) 33.4 % (20.0-45.0) Monocytes (%) (Auto) 7.6 % (1.0-10.0) Eosinophils (%) (Auto) 0.1 % (0.0-3.0) Basophils (%) (Auto) 0.9 % (0.0-2.0) Sodium Level 146 MMOL/L (136-145) Potassium Level 4.3 MMOL/L (3.5-5.1) Chloride Level 113 MMOL/L (98-107) Carbon Dioxide Level 31 MMOL/L (21-32) Anion Gap 2 mmol/L (5-15) Blood Urea Nitrogen 6 mg/dL (7-18) Creatinine 0.9 MG/DL (0.55-1.30) Estimat Glomerular Filtration Rate > 60 mL/min (>60) Glucose Level 117 MG/DL (74-106) Calcium Level 7.1 MG/DL (8.5-10.1) Magnesium Level 2.0 MG/DL (1.8-2.4) Test 01/01/20 23:05 01/02/20 00:27 01/02/20 00:28 01/02/20 04:25 POC Whole Blood Glucose 64 MG/DL (74-106) 21 MG/DL (74-106) 102 MG/DL (74-106) White Blood Count 10.2 K/UL (4.8-10.8) Red Blood Count 2.66 M/UL (4.20-5.40) Hemoglobin 8.3 G/DL (12.0-16.0) Hematocrit 27.4 % (37.0-47.0) Mean Corpuscular Volume 103 FL (80-99) Mean Corpuscular Hemoglobin 31.4 PG (27.0-31.0) Mean Corpuscular Hemoglobin Concent 30.4 G/DL (32.0-36.0) Red Cell Distribution Width 15.4 % (11.6-14.8) Platelet Count 321 K/UL (150-450) Mean Platelet Volume 4.7 FL (6.5-10.1) Neutrophils (%) (Auto) 53.5 % (45.0-75.0) Lymphocytes (%) (Auto) 38.3 % (20.0-45.0) Monocytes (%) (Auto) 6.5 % (1.0-10.0) Eosinophils (%) (Auto) 0.2 % (0.0-3.0) Basophils (%) (Auto) 1.4 % (0.0-2.0) Sodium Level 147 MMOL/L (136-145) Potassium Level 5.0 MMOL/L (3.5-5.1) Chloride Level 115 MMOL/L (98-107) Carbon Dioxide Level 28 MMOL/L (21-32) Anion Gap 4 mmol/L (5-15) Blood Urea Nitrogen 12 mg/dL (7-18) Creatinine 1.0 MG/DL (0.55-1.30) Estimat Glomerular Filtration Rate > 60 mL/min (>60) Glucose Level 63 MG/DL (74-106) Calcium Level 7.4 MG/DL (8.5-10.1) Test 01/02/20 05:23 01/02/20 12:29 01/02/20 12:32 01/02/20 12:45 POC Whole Blood Glucose 85 MG/DL (74-106) 12 MG/DL (74-106) Test 01/02/20 13:25 01/02/20 15:48 01/02/20 15:49 01/02/20 17:30 Glucose Level 135 MG/DL (74-106) POC Whole Blood Glucose 63 MG/DL (74-106) 74 MG/DL (74-106) Test 01/02/20 21:59 01/02/20 22:01 01/03/20 04:46 01/03/20 05:29 POC Whole Blood Glucose 71 MG/DL (74-106) 81 MG/DL (74-106) 57 MG/DL (74-106) White Blood Count 10.1 K/UL (4.8-10.8) Red Blood Count 2.90 M/UL (4.20-5.40) Hemoglobin 9.3 G/DL (12.0-16.0) Hematocrit 29.9 % (37.0-47.0) Mean Corpuscular Volume 103 FL (80-99) Mean Corpuscular Hemoglobin 32.1 PG (27.0-31.0) Mean Corpuscular Hemoglobin Concent 31.2 G/DL (32.0-36.0) Red Cell Distribution Width 15.9 % (11.6-14.8) Platelet Count 315 K/UL (150-450) Mean Platelet Volume 4.5 FL (6.5-10.1) Neutrophils (%) (Auto) 57.9 % (45.0-75.0) Lymphocytes (%) (Auto) 34.3 % (20.0-45.0) Monocytes (%) (Auto) 5.4 % (1.0-10.0) Eosinophils (%) (Auto) 0.0 % (0.0-3.0) Basophils (%) (Auto) 2.4 % (0.0-2.0) Test 01/03/20 05:45 POC Whole Blood Glucose 99 MG/DL (74-106) Height (Feet): 5 Height (Inches): 4.00 Weight (Pounds): 170 Objective Physical Exam: Vitals: reviewed General: NAD HEENT: nc, at Neck: supple Chest: clear breath sounds bilaterally+ nc Cardiovascular: RRR, no s3, s4 Abdomen: soft, nontender, ttp in upper quands, abd surgical scar c/d/i Extremities: no cce, normal range of motion Neuro: alert and oriented Charanjit Sandoval MD Jan 03, 2020 08:57
--- NOTE | 2020-01-03 10:04 | General Progress Note ---
Assessment/Plan Problem List: (1) UTI (urinary tract infection) ICD Codes: N39.0 - Urinary tract infection, site not specified SNOMED: 58862004 (2) Malnutrition ICD Codes: E46 - Unspecified protein-calorie malnutrition SNOMED: 31437519 (3) Renal failure ICD Codes: N19 - Unspecified kidney failure SNOMED: 00710457 (4) HTN (hypertension) ICD Codes: I10 - Essential (primary) hypertension SNOMED: 96622557 (5) Hypoglycemia ICD Codes: E16.2 - Hypoglycemia, unspecified SNOMED: 635852015 (6) Hypernatremia ICD Codes: E87.0 - Hyperosmolality and hypernatremia SNOMED: 021036011 (7) Suspected 2019-nCoV infection ICD Codes: Z20.828 - Contact with and (suspected) exposure to other viral communicable diseases SNOMED: 109023575 Status: stable, progressing Assessment/Plan: o2 pulm tx abx pt diet cbc bmp am wound care dc if clear Subjective Constitutional: Reports: weakness Allergies: Coded Allergies: IBUPROFEN (Verified Allergy, Unknown, 12/20/19) All Systems: reviewed and negative except above Subjective calm in bed Objective Last 24 Hour Vital Signs Date Time Temp Pulse Resp B/P (MAP) Pulse Ox O2 Delivery O2 Flow Rate FiO2 01/03/20 08:00 96.8 119 18 114/84 (94) 100 01/03/20 08:00 112 01/03/20 07:52 Nasal Cannula 4.0 Nasal Cannula 4.0 01/03/20 04:00 97.0 126 22 119/78 (92) 100 01/03/20 04:00 123 01/03/20 04:00 Nasal Cannula 4.0 Nasal Cannula 4.0 01/03/20 00:00 97.4 125 24 111/77 (88) 100 01/03/20 00:00 117 01/03/20 00:00 Nasal Cannula 4.0 Nasal Cannula 4.0 01/02/20 20:00 110 01/02/20 20:00 Nasal Cannula 4.0 Nasal Cannula 4.0 01/02/20 20:00 97.5 127 24 122/62 (82) 100 01/02/20 16:00 115 01/02/20 16:00 Nasal Cannula 2.0 Nasal Cannula 5.0 01/02/20 16:00 98.2 127 20 115/64 (81) 92 01/02/20 12:00 98.1 115 16 123/84 (97) 95 01/02/20 12:00 106 01/02/20 12:00 Nasal Cannula 2.0 Nasal Cannula 2.0 Intake and Output 01/02/20 01/03/20 19:00 07:00 Intake Total 700 ml 500 ml Output Total 1000 ml 1000 ml Balance -300 ml -500 ml Intake Oral 700 ml 500 ml Output Urine Total 1000 ml 1000 ml Laboratory Tests 01/02/20 12:29: POC Whole Blood Glucose 12*L 01/02/20 12:32: POC Whole Blood Glucose [Pending] 01/02/20 12:45: POC Whole Blood Glucose [Pending] 01/02/20 13:25: Glucose Level 135H 01/02/20 15:48: POC Whole Blood Glucose 63L 01/02/20 15:49: POC Whole Blood Glucose [Pending] 01/02/20 17:30: POC Whole Blood Glucose 74 01/02/20 21:59: POC Whole Blood Glucose 71L 01/02/20 22:01: POC Whole Blood Glucose 81 01/03/20 04:46: White Blood Count 10.1, Red Blood Count 2.90L, Hemoglobin 9.3L, Hematocrit 29.9L , Mean Corpuscular Volume 103H, Mean Corpuscular Hemoglobin 32.1H, Mean Corpuscular Hemoglobin Concent 31.2L, Red Cell Distribution Width 15.9H, Platelet Count 315, Mean Platelet Volume 4.5L, Neutrophils (%) (Auto) 57.9, Lymphocytes (%) (Auto) 34.3, Monocytes (%) (Auto) 5.4, Eosinophils (%) (Auto) 0.0, Basophils (%) (Auto) 2.4H, Sodium Level [Pending], Potassium Level [Pending ], Chloride Level [Pending], Carbon Dioxide Level [Pending], Blood Urea Nitrogen [Pending], Creatinine [Pending], Estimat Glomerular Filtration Rate [ Pending], Glucose Level [Pending], Calcium Level [Pending] 01/03/20 05:29: POC Whole Blood Glucose 57L 01/03/20 05:45: POC Whole Blood Glucose 99 Height (Feet): 5 Height (Inches): 4.00 Weight (Pounds): 170 General Appearance: lethargic EENT: normal ENT inspection Neck: normal alignment Cardiovascular: normal rate, regular rhythm Respiratory/Chest: no respiratory distress, no accessory muscle use Extremities: normal inspection Skin: normal pigmentation Ricky Potter DO Jan 03, 2020 10:04
[2020-01-03 10:20] LABS: ANION GAP 6 mmol/L (5-15); BLOOD UREA NITROGEN 12 mg/dL (7-18); CALCIUM 7.3 MG/DL (8.5-10.1); CARBON DIOXIDE 29 MMOL/L (21-32); CHLORIDE 114 MMOL/L (98-107); CREATININE 0.9 MG/DL (0.55-1.30); POTASSIUM 4.7 MMOL/L (3.5-5.1); SODIUM 148 MMOL/L (136-145)
--- NOTE | 2020-01-03 10:22 | NUR ---
RD ASSESSMENT & RECOMMENDATIONS SEE CARE ACTIVITY FOR COMPLETE ASSESSMENT DAILY ESTIMATED NEEDS: Needs based on cardiac, surgery 58.4kg abw 25-30 kcals/kg [id number] total kcals 1.25- 2 g protein/kg 73-116 g total protein 25-30 mL/kg 0396-7106 total fluid mLs NUTRITION DIAGNOSIS: * Altered nutrition related lab values r/t clinical status, as evidenced by critically elev Na on adm (167*-> 169*-> 147), elev BUN and creat (22-> wnl, 1.9-> wnl, respectively), elev BNP (1113 -> 2133), frequent episodes of hypoglycemia * Increased kcal/prot needs R/T wound healing and surgery as evidenced by pt admitted w/ wounds including full thickness wound @ lower L buttocks and DTPI @ L heel, s/p open incarcerated ventral hernia incisional repair, currently w/ variable PO intake CURRENT DIET:regular/ mech soft finely chopped PO DIET RECOMMENDATIONS: Liberalized REGULAR/ texture per [employer]M [employer]ING [employer]ACH[employer]PERATOR + Ensure Enlive TID w/ meals ADDITIONAL RECOMMENDATIONS: 1) Calibrated bedscale wt 2) Wound healing: Add MVI x 1, Vit C 500mg QD, ZnSO4 220mg QD x 10 days Javed 1pkt BID (mixed in 8oz water) added to tray 3) Offer 4 oz juice hourly as able w/ POC as per endo. 4) Continue dextrose IVF w/ IV access 5) F/up w/ Tobin count x 24 hrs (Re-ordered 01/02) 6) Consider appetite stimulant Addendum: 01/03/20 at [address] Data for tobin count x 24 hrs ordered on 12/31 is INCOMPLETE, only 1/3 meal ticket available for review. Tobin count x 24 hrs re-ordered this AM, Will f/up. Pt w/ improved PO intake this AM per RN.
[2020-01-03 10:23] LABS: ALANINE AMINOTRANSFERASE 17 U/L (12-78); ALBUMIN 1.1 G/DL (3.4-5.0); ALKALINE PHOSPHATASE 94 U/L (46-116); ASPARTATE AMINO TRANSFERASE 19 U/L (15-37); BILIRUBIN,DIRECT 0.1 MG/DL (0.0-0.3); BILIRUBIN,TOTAL 0.2 MG/DL (0.2-1.0); PHOSPHORUS 2.9 MG/DL (2.5-4.9)
--- NOTE | 2020-01-03 10:26 | NUR ---
DISCHARGE PLANNING: NOTE DC ORDER NOTED CALL PLACED TO [facility] IS NOT AVAILABLE AT THIS TIME. CLINICALS FAXED TO [facility] FOR REVIEW NICOLAS VASQUEZ P: [phone] ROOM 6A WAS PROVIDED PREVIOUSLY Addendum: 01/03/20 at 1242 by Slo Carty f/u call placed to [facility] to confirm bed assignment. edison left nursing to obtain clearance from [facility] pulmo cardio and sx. Nursing made aware
--- NOTE | 2020-01-03 10:50 | Infectious Diseases Prog Note ---
Assessment/Plan Assessment/Plan antibiotics : none A 1. e.coli sepsis s/p rx 2. COVID 19 pneumonia on 2 liters, 95 percent saturation 3. incarcerated hernia s/p repair with mesh, lysis of adhesions 4. hypertension 5. renal failure 6. bipolar disorder 7. asthma 8. pseudomonas UTI s/p rx 9. head lice s/p permethrin shampoo P 1, continue isolation 2. will follow up cultures 3, observe off antibiotics Subjective Constitutional: Denies: fever, chills Respiratory: Denies: shortness of breath, dry cough Gastrointestinal/Abdominal: Denies: nausea, vomiting, diarrhea Musculoskeletal: Reports: pain Allergies: Coded Allergies: IBUPROFEN (Verified Allergy, Unknown, 12/20/19) Objective Last 24 Hour Vital Signs Date Time Temp Pulse Resp B/P (MAP) Pulse Ox O2 Delivery O2 Flow Rate FiO2 01/03/20 08:00 96.8 119 18 114/84 (94) 100 01/03/20 08:00 112 01/03/20 07:52 Nasal Cannula 4.0 Nasal Cannula 4.0 01/03/20 04:00 97.0 126 22 119/78 (92) 100 01/03/20 04:00 123 01/03/20 04:00 Nasal Cannula 4.0 Nasal Cannula 4.0 01/03/20 00:00 97.4 125 24 111/77 (88) 100 01/03/20 00:00 117 01/03/20 00:00 Nasal Cannula 4.0 Nasal Cannula 4.0 01/02/20 20:00 110 01/02/20 20:00 Nasal Cannula 4.0 Nasal Cannula 4.0 01/02/20 20:00 97.5 127 24 122/62 (82) 100 01/02/20 16:00 115 01/02/20 16:00 Nasal Cannula 2.0 Nasal Cannula 5.0 01/02/20 16:00 98.2 127 20 115/64 (81) 92 01/02/20 12:00 98.1 115 16 123/84 (97) 95 01/02/20 12:00 106 01/02/20 12:00 Nasal Cannula 2.0 Nasal Cannula 2.0 Height (Feet): 5 Height (Inches): 4.00 Weight (Pounds): 170 Laboratory Tests Test 01/02/20 12:29 01/02/20 12:32 01/02/20 12:45 01/02/20 13:25 POC Whole Blood Glucose 12 MG/DL (74-106) *L Pending Pending Glucose Level 135 MG/DL (74-106) H Test 01/02/20 15:48 01/02/20 15:49 01/02/20 17:30 01/02/20 21:59 POC Whole Blood Glucose 63 MG/DL (74-106) L Pending 74 MG/DL (74-106) 71 MG/DL (74-106) L Test 01/02/20 22:01 01/03/20 04:46 01/03/20 05:29 01/03/20 05:45 POC Whole Blood Glucose 81 MG/DL (74-106) 57 MG/DL (74-106) L 99 MG/DL (74-106) White Blood Count 10.1 K/UL (4.8-10.8) Red Blood Count 2.90 M/UL (4.20-5.40) L Hemoglobin 9.3 G/DL (12.0-16.0) L Hematocrit 29.9 % (37.0-47.0) L Mean Corpuscular Volume 103 FL (80-99) H Mean Corpuscular Hemoglobin 32.1 PG (27.0-31.0) H Mean Corpuscular Hemoglobin Concent 31.2 G/DL (32.0-36.0) L Red Cell Distribution Width 15.9 % (11.6-14.8) H Platelet Count 315 K/UL (150-450) Mean Platelet Volume 4.5 FL (6.5-10.1) L Neutrophils (%) (Auto) 57.9 % (45.0-75.0) Lymphocytes (%) (Auto) 34.3 % (20.0-45.0) Monocytes (%) (Auto) 5.4 % (1.0-10.0) Eosinophils (%) (Auto) 0.0 % (0.0-3.0) Basophils (%) (Auto) 2.4 % (0.0-2.0) H Test 01/03/20 09:50 Sodium Level 148 MMOL/L (136-145) H Potassium Level 4.7 MMOL/L (3.5-5.1) Chloride Level 114 MMOL/L (98-107) H Carbon Dioxide Level 29 MMOL/L (21-32) Anion Gap 6 mmol/L (5-15) Blood Urea Nitrogen 12 mg/dL (7-18) Creatinine 0.9 MG/DL (0.55-1.30) Estimat Glomerular Filtration Rate > 60 mL/min (>60) Glucose Level 100 MG/DL (74-106) Calcium Level 7.3 MG/DL (8.5-10.1) L Phosphorus Level 2.9 MG/DL (2.5-4.9) Magnesium Level 1.8 MG/DL (1.8-2.4) Total Bilirubin 0.2 MG/DL (0.2-1.0) Direct Bilirubin 0.1 MG/DL (0.0-0.3) Aspartate Amino Transf (AST/SGOT) 19 U/L (15-37) Alanine Aminotransferase (ALT/SGPT) 17 U/L (12-78) Alkaline Phosphatase 94 U/L (46-116) Total Protein 5.3 G/DL (6.4-8.2) L Albumin 1.1 G/DL (3.4-5.0) L Current Medications Medications (Trade) Dose Ordered Sig/Venita Route PRN Reason Start Time Stop Time Status Last Admin Dose Admin Benztropine Mesylate (Cogentin) 2 mg BID ORAL 12/27/19 18:00 01/20/20 08:59 01/03/20 08:07 Chlorhexidine Gluconate (Edwina-Hex 2%) 1 applic DAILY@2000 TOPIC 01/03/20 20:00 04/02/20 19:59 Dextrose 1,000 ml @ 100 mls/hr Q10H IV 12/31/19 23:00 01/30/20 22:59 01/02/20 05:07 Dextrose (Dextrose 50%) 25 ml Q30M PRN IV Hypoglycemia 12/29/19 11:15 01/28/20 11:07 01/01/20 23:40 Dextrose (Dextrose 50%) 50 ml Q30M PRN IV hypoglycemia 12/29/19 11:15 03/28/20 11:14 12/31/19 21:10 Divalproex Sodium (Depakote Sprinkles) 250 mg Q12HR ORAL 01/01/20 09:00 01/31/20 08:59 01/03/20 08:08 Docusate Sodium (Colace) 100 mg THREE TIMES A DAY ORAL 01/01/20 09:00 01/31/20 08:59 01/03/20 08:08 Haloperidol (Haldol) 5 mg TID ORAL 12/27/19 13:00 02/04/20 13:59 01/03/20 08:07 Heparin Sodium (Porcine) (Heparin 5000 units/ml) 5,000 units EVERY 12 HOURS SUBQ 12/27/19 21:00 02/09/20 08:59 01/03/20 08:10 Heparin Sodium/ Sodium Chloride (Heparin 1000 units/500ml Premix) 1,000 unit ONCE PRN IV PICC PLACEMENT 01/02/20 18:30 01/03/20 23:59 Hydralazine HCl (Apresoline) 10 mg Q4H PRN IV Blood pressure over 160 systol 12/27/19 12:45 03/24/20 16:37 Lidocaine HCl (Xylocaine 1% 30ml) 30 ml ONCE PRN INJ PICC PLACEMENT 01/02/20 18:30 01/03/20 23:59 Pantoprazole (Protonix) 40 mg EVERY 12 HOURS IVP 12/27/19 21:00 01/24/20 20:59 01/03/20 08:08 Ziprasidone (Geodon) 40 mg Q12HR ORAL 12/27/19 21:00 02/04/20 20:59 01/03/20 08:08 Penny Montague MD Jan 03, 2020 10:50
[2020-01-03 11:22] VITALS: BP 122/50
--- NOTE | 2020-01-03 14:05 | General Progress Note ---
Assessment/Plan Problem List: (1) Acute febrile illness ICD Codes: R50.9 - Fever, unspecified SNOMED: 163386563 (2) Atypical pneumonia ICD Codes: J18.9 - Pneumonia, unspecified organism SNOMED: 839878068 (3) Incarcerated ventral hernia ICD Codes: K43.6 - Other and unspecified ventral hernia with obstruction, without gangrene SNOMED: 656067168 (4) Suspected 2019-nCoV infection ICD Codes: Z20.828 - Contact with and (suspected) exposure to other viral communicable diseases SNOMED: 262291244 (5) HTN (hypertension) ICD Codes: I10 - Essential (primary) hypertension SNOMED: 35942130 (6) UTI (urinary tract infection) ICD Codes: N39.0 - Urinary tract infection, site not specified SNOMED: 98063790 (7) Malnutrition ICD Codes: E46 - Unspecified protein-calorie malnutrition SNOMED: 49862913 (8) Renal failure ICD Codes: N19 - Unspecified kidney failure SNOMED: 25185372 (9) Hypoglycemia ICD Codes: E16.2 - Hypoglycemia, unspecified SNOMED: 566748032 (10) Hypernatremia ICD Codes: E87.0 - Hyperosmolality and hypernatremia SNOMED: 805715164 Status: stable, progressing Assessment/Plan: s/p hernia repair patient is eating but is picky eater hold NGT add marinol fu labs will fu Subjective Allergies: Coded Allergies: IBUPROFEN (Verified Allergy, Unknown, 12/20/19) Objective Last 24 Hour Vital Signs Date Time Temp Pulse Resp B/P (MAP) Pulse Ox O2 Delivery O2 Flow Rate FiO2 01/03/20 12:00 Nasal Cannula 4.0 Nasal Cannula 4.0 01/03/20 11:50 112 01/03/20 11:22 96.4 119 21 122/50 (74) 99 01/03/20 08:00 96.8 119 18 114/84 (94) 100 01/03/20 08:00 112 01/03/20 07:52 Nasal Cannula 4.0 Nasal Cannula 4.0 01/03/20 04:00 97.0 126 22 119/78 (92) 100 01/03/20 04:00 123 01/03/20 04:00 Nasal Cannula 4.0 Nasal Cannula 4.0 01/03/20 00:00 97.4 125 24 111/77 (88) 100 01/03/20 00:00 117 01/03/20 00:00 Nasal Cannula 4.0 Nasal Cannula 4.0 01/02/20 20:00 110 01/02/20 20:00 Nasal Cannula 4.0 Nasal Cannula 4.0 01/02/20 20:00 97.5 127 24 122/62 (82) 100 01/02/20 16:00 115 01/02/20 16:00 Nasal Cannula 2.0 Nasal Cannula 5.0 01/02/20 16:00 98.2 127 20 115/64 (81) 92 Intake and Output 01/02/20 01/03/20 19:00 07:00 Intake Total 700 ml 500 ml Output Total 1000 ml 1000 ml Balance -300 ml -500 ml Intake Oral 700 ml 500 ml Output Urine Total 1000 ml 1000 ml Laboratory Tests 01/02/20 15:48: POC Whole Blood Glucose 63L 01/02/20 15:49: POC Whole Blood Glucose [Pending] 01/02/20 17:30: POC Whole Blood Glucose 74 01/02/20 21:59: POC Whole Blood Glucose 71L 01/02/20 22:01: POC Whole Blood Glucose 81 01/03/20 04:46: White Blood Count 10.1, Red Blood Count 2.90L, Hemoglobin 9.3L, Hematocrit 29.9L , Mean Corpuscular Volume 103H, Mean Corpuscular Hemoglobin 32.1H, Mean Corpuscular Hemoglobin Concent 31.2L, Red Cell Distribution Width 15.9H, Platelet Count 315, Mean Platelet Volume 4.5L, Neutrophils (%) (Auto) 57.9, Lymphocytes (%) (Auto) 34.3, Monocytes (%) (Auto) 5.4, Eosinophils (%) (Auto) 0.0, Basophils (%) (Auto) 2.4H 01/03/20 05:29: POC Whole Blood Glucose 57L 01/03/20 05:45: POC Whole Blood Glucose 99 01/03/20 09:50: Sodium Level 148H, Potassium Level 4.7, Chloride Level 114H, Carbon Dioxide Level 29, Anion Gap 6, Blood Urea Nitrogen 12, Creatinine 0.9, Estimat Glomerular Filtration Rate > 60, Glucose Level 100, Calcium Level 7.3L, Phosphorus Level 2.9, Magnesium Level 1.8, Total Bilirubin 0.2, Direct Bilirubin 0.1, Aspartate Amino Transf (AST/SGOT) 19, Alanine Aminotransferase ( ALT/SGPT) 17, Alkaline Phosphatase 94, Total Protein 5.3L, Albumin 1.1L 01/03/20 10:58: POC Whole Blood Glucose [Pending] 01/03/20 11:07: POC Whole Blood Glucose [Pending] 01/03/20 11:16: POC Whole Blood Glucose [Pending] 01/03/20 12:59: POC Whole Blood Glucose [Pending] Height (Feet): 5 Height (Inches): 4.00 Weight (Pounds): 170 General Appearance: no apparent distress EENT: normal ENT inspection Neck: supple Cardiovascular: normal rate Respiratory/Chest: decreased breath sounds Abdomen: normal bowel sounds, non tender, soft Extremities: non-tender Zohaib Owen MD Jan 03, 2020 14:05
--- NOTE | 2020-01-03 14:12 | Nephrology Progress Note ---
Assessment/Plan Problem List: (1) Renal failure Assessment: Acute on chronic (2) Suspected 2019-nCoV infection Assessment: Acute febrile illness (3) Hypernatremia Assessment: Improving (4) Hypoglycemia Assessment: Improving Assessment Renal failure, most likely chronic, with superimposed acute renal failure. Acute febrile illness, suspected COVID-19 infection. Hypernatremia, likely due to free water deficit. Hypoglycemia Severe hypoalbuminemia Atypical pneumonia Anemia History of psych disease Plan January 02: Renal parameters stable. Low blood sugar still problematic. Continue per consultants. January 01: Lab reviewed. Renal parameters stable. Patient blood sugar fluctuating mostly towards hypoglycemia despite of being on D10. Continue per endocrinology advice. December 31: Lab reviewed. Renal parameters stable. Continue per consultants. December 30: Lab reviewed. Serum sodium 158. On D10 IV fluid. Mag supplement ordered. December 29: Lab reviewed. Periodic hypoglycemia. On nasal cannula. Stable from renal standpoint of view. Hypoglycemia protocol in place. Per order. December 28: Labs reviewed. Serum sodium going down. On nasal cannula. Continue per consultants. December 27: Now in [facility]. Postop day 3. On nasal cannula. Labs reviewed. Hypernatremia improving. Continue D5W however will cut down the rate. Continue to monitor electrolytes. Continue per consultants. December 26: Remains in ICU. Postop day 2. Is now extubated. Lab reviewed. Hypernatremia persists. Continue D5W. Discussed with RN. December 25: Patient in ICU. Had surgery yesterday December 24. Patient remains intubated, due for extubation. Lab reviewed. Discussed with RN. Continue D5W for hypernatremia. Patient overall stable from renal standpoint of view. December 24: Renal parameters reviewed. Creatinine within normal limit. Serum sodium remains high. Patient due for hernia surgery today. Continue D5W IV fluid. December 23: Renal parameters reviewed. Creatinine down to 1.4. Serum sodium higher. Patient is being investigated for incarcerated ventral hernia by general surgery. Continue current IV fluid and monitor renal parameters. December 22: Will recheck serum potassium. If nonhemolyzed value still elevated will treat hyperkalemia. Discussed with DOT Leary. Continue the rest of the medication. Stop blood pressure medication due to low blood pressure, adjust the dose when the blood pressure improves PRN IV hydralazine for blood pressure spike D5W IV hydration Protonix p.o. Albumin IV bolus Monitor renal parameters Continue per consultants Saha catheter, urine studies Subjective ROS Limited/Unobtainable: No Constitutional: Reports: malaise Objective Objective Last 24 Hour Vital Signs Date Time Temp Pulse Resp B/P (MAP) Pulse Ox O2 Delivery O2 Flow Rate FiO2 01/03/20 12:00 Nasal Cannula 4.0 Nasal Cannula 4.0 01/03/20 11:50 112 01/03/20 11:22 96.4 119 21 122/50 (74) 99 01/03/20 08:00 96.8 119 18 114/84 (94) 100 01/03/20 08:00 112 01/03/20 07:52 Nasal Cannula 4.0 Nasal Cannula 4.0 01/03/20 04:00 97.0 126 22 119/78 (92) 100 01/03/20 04:00 123 01/03/20 04:00 Nasal Cannula 4.0 Nasal Cannula 4.0 01/03/20 00:00 97.4 125 24 111/77 (88) 100 01/03/20 00:00 117 01/03/20 00:00 Nasal Cannula 4.0 Nasal Cannula 4.0 01/02/20 20:00 110 01/02/20 20:00 Nasal Cannula 4.0 Nasal Cannula 4.0 01/02/20 20:00 97.5 127 24 122/62 (82) 100 01/02/20 16:00 115 01/02/20 16:00 Nasal Cannula 2.0 Nasal Cannula 5.0 01/02/20 16:00 98.2 127 20 115/64 (81) 92 Intake and Output 01/02/20 01/03/20 19:00 07:00 Intake Total 700 ml 500 ml Output Total 1000 ml 1000 ml Balance -300 ml -500 ml Intake Oral 700 ml 500 ml Output Urine Total 1000 ml 1000 ml Laboratory Tests 01/02/20 15:48: POC Whole Blood Glucose 63L 01/02/20 15:49: POC Whole Blood Glucose [Pending] 01/02/20 17:30: POC Whole Blood Glucose 74 01/02/20 21:59: POC Whole Blood Glucose 71L 01/02/20 22:01: POC Whole Blood Glucose 81 01/03/20 04:46: White Blood Count 10.1, Red Blood Count 2.90L, Hemoglobin 9.3L, Hematocrit 29.9L , Mean Corpuscular Volume 103H, Mean Corpuscular Hemoglobin 32.1H, Mean Corpuscular Hemoglobin Concent 31.2L, Red Cell Distribution Width 15.9H, Platelet Count 315, Mean Platelet Volume 4.5L, Neutrophils (%) (Auto) 57.9, Lymphocytes (%) (Auto) 34.3, Monocytes (%) (Auto) 5.4, Eosinophils (%) (Auto) 0.0, Basophils (%) (Auto) 2.4H 01/03/20 05:29: POC Whole Blood Glucose 57L 01/03/20 05:45: POC Whole Blood Glucose 99 01/03/20 09:50: Sodium Level 148H, Potassium Level 4.7, Chloride Level 114H, Carbon Dioxide Level 29, Anion Gap 6, Blood Urea Nitrogen 12, Creatinine 0.9, Estimat Glomerular Filtration Rate > 60, Glucose Level 100, Calcium Level 7.3L, Phosphorus Level 2.9, Magnesium Level 1.8, Total Bilirubin 0.2, Direct Bilirubin 0.1, Aspartate Amino Transf (AST/SGOT) 19, Alanine Aminotransferase ( ALT/SGPT) 17, Alkaline Phosphatase 94, Total Protein 5.3L, Albumin 1.1L 01/03/20 10:58: POC Whole Blood Glucose [Pending] 01/03/20 11:07: POC Whole Blood Glucose [Pending] 01/03/20 11:16: POC Whole Blood Glucose [Pending] 01/03/20 12:59: POC Whole Blood Glucose [Pending] Height (Feet): 5 Height (Inches): 4.00 Weight (Pounds): 170 General Appearance: no apparent distress EENT: other - On nasal cannula Cardiovascular: tachycardia Respiratory/Chest: decreased breath sounds Abdomen: distended Objective No change Brian Pichardo MD Jan 03, 2020 14:12
--- NOTE | 2020-01-03 14:13 | Cardiac Electrophysiology PN ---
Assessment/Plan Assessment/Plan 1. Hypotension. Due to dehydration and sepsis. Resolved. Echo EF 65% 2. Hypertension, on p.r.n. IV hydralazine. 3. Severe hypernatremia. On IV fluid per Dr. Pichardo. Na improved to 150 4. COVID-19 PNA in isolation 5. K 6.0. Erroneous. Repeat 3.4 6. Incarcerated incisional ventral hernia and Bowel obstruction.S/P surgery by Dr Vargas. 7. S/P Respiratory failure, extubated 12/26/19 8. Hypoglycemia on D10W DW RN Subjective Subjective In isolation for Covid in SDU. S/P incarcerated ventral hernia surgery 12/25/19. Being DCed back to SN today Objective Last 24 Hour Vital Signs Date Time Temp Pulse Resp B/P (MAP) Pulse Ox O2 Delivery O2 Flow Rate FiO2 01/03/20 12:00 Nasal Cannula 4.0 Nasal Cannula 4.0 01/03/20 11:50 112 01/03/20 11:22 96.4 119 21 122/50 (74) 99 01/03/20 08:00 96.8 119 18 114/84 (94) 100 01/03/20 08:00 112 01/03/20 07:52 Nasal Cannula 4.0 Nasal Cannula 4.0 01/03/20 04:00 97.0 126 22 119/78 (92) 100 01/03/20 04:00 123 01/03/20 04:00 Nasal Cannula 4.0 Nasal Cannula 4.0 01/03/20 00:00 97.4 125 24 111/77 (88) 100 01/03/20 00:00 117 01/03/20 00:00 Nasal Cannula 4.0 Nasal Cannula 4.0 01/02/20 20:00 110 01/02/20 20:00 Nasal Cannula 4.0 Nasal Cannula 4.0 01/02/20 20:00 97.5 127 24 122/62 (82) 100 01/02/20 16:00 115 01/02/20 16:00 Nasal Cannula 2.0 Nasal Cannula 5.0 01/02/20 16:00 98.2 127 20 115/64 (81) 92 Intake and Output 01/02/20 01/03/20 19:00 07:00 Intake Total 700 ml 500 ml Output Total 1000 ml 1000 ml Balance -300 ml -500 ml Intake Oral 700 ml 500 ml Output Urine Total 1000 ml 1000 ml Laboratory Tests Test 01/02/20 15:48 01/02/20 15:49 01/02/20 17:30 01/02/20 21:59 POC Whole Blood Glucose 63 MG/DL (74-106) L Pending 74 MG/DL (74-106) 71 MG/DL (74-106) L Test 01/02/20 22:01 01/03/20 04:46 01/03/20 05:29 01/03/20 05:45 POC Whole Blood Glucose 81 MG/DL (74-106) 57 MG/DL (74-106) L 99 MG/DL (74-106) White Blood Count 10.1 K/UL (4.8-10.8) Red Blood Count 2.90 M/UL (4.20-5.40) L Hemoglobin 9.3 G/DL (12.0-16.0) L Hematocrit 29.9 % (37.0-47.0) L Mean Corpuscular Volume 103 FL (80-99) H Mean Corpuscular Hemoglobin 32.1 PG (27.0-31.0) H Mean Corpuscular Hemoglobin Concent 31.2 G/DL (32.0-36.0) L Red Cell Distribution Width 15.9 % (11.6-14.8) H Platelet Count 315 K/UL (150-450) Mean Platelet Volume 4.5 FL (6.5-10.1) L Neutrophils (%) (Auto) 57.9 % (45.0-75.0) Lymphocytes (%) (Auto) 34.3 % (20.0-45.0) Monocytes (%) (Auto) 5.4 % (1.0-10.0) Eosinophils (%) (Auto) 0.0 % (0.0-3.0) Basophils (%) (Auto) 2.4 % (0.0-2.0) H Test 01/03/20 09:50 01/03/20 10:58 01/03/20 11:07 01/03/20 11:16 Sodium Level 148 MMOL/L (136-145) H Potassium Level 4.7 MMOL/L (3.5-5.1) Chloride Level 114 MMOL/L (98-107) H Carbon Dioxide Level 29 MMOL/L (21-32) Anion Gap 6 mmol/L (5-15) Blood Urea Nitrogen 12 mg/dL (7-18) Creatinine 0.9 MG/DL (0.55-1.30) Estimat Glomerular Filtration Rate > 60 mL/min (>60) Glucose Level 100 MG/DL (74-106) Calcium Level 7.3 MG/DL (8.5-10.1) L Phosphorus Level 2.9 MG/DL (2.5-4.9) Magnesium Level 1.8 MG/DL (1.8-2.4) Total Bilirubin 0.2 MG/DL (0.2-1.0) Direct Bilirubin 0.1 MG/DL (0.0-0.3) Aspartate Amino Transf (AST/SGOT) 19 U/L (15-37) Alanine Aminotransferase (ALT/SGPT) 17 U/L (12-78) Alkaline Phosphatase 94 U/L (46-116) Total Protein 5.3 G/DL (6.4-8.2) L Albumin 1.1 G/DL (3.4-5.0) L POC Whole Blood Glucose Pending Pending Pending Test 01/03/20 12:59 POC Whole Blood Glucose Pending Objective HEAD AND NECK: No JVD. LUNGS: Coarse rhonchi. CARDIOVASCULAR: Regular S1, S2. ABDOMEN: Soft. S/P hernia surgery EXTREMITIES: No pitting edema. Steffen Mera MD Jan 03, 2020 14:13
--- NOTE | 2020-01-03 14:15 | NUR ---
DISCHARGE DISPOSITION: PLEASE READ PATIENT TO BE DISCHARGED TO [facility] [address] [facility] ROOM [address] T: [phone]>> CALL FOR REPORT [facility] ON WILL CALL PENDING CLEARANCE (NURSE TO OBTAIN) MESSAGE LEFT SISTER KASSIDY ROBERTO T: [phone] MAKING HER AWARE OF THE DC ORDER TO A NEW LOCATION TRANSFER REPORT TO BE PROVIDED Addendum: 01/03/20 at 1419 by Sol Carty CM [facility] IS AWARE PT IS COVID (+) AND WILL TAKE THE NECESSARY PRECAUTIONS [facility] BLS 4L/NC Addendum: 01/03/20 at 1425 by Sol Carty CM PER NURSING ALL CLEARANCES HAVE OBTAINED [facility] ACTIVATED FOR 1600 TRANSFER REPORT PROVIDED
--- NOTE | 2020-01-03 14:15 | Pulmonology Progress Note ---
Subjective ROS Limited/Unobtainable: No Interval Events: Extubated on 12/27/19 Constitutional: Denies: fever, chills HEENT: Repors: no symptoms Respiratory: Reports: no symptoms Cardiovascular: Reports: no symptoms Gastrointestinal/Abdominal: Denies: nausea, vomiting, diarrhea Genitourinary: Reports: no symptoms Neurologic: Reports: no symptoms Musculoskeletal: Reports: pain Allergies: Coded Allergies: IBUPROFEN (Verified Allergy, Unknown, 12/20/19) All Systems: reviewed and negative except above Objective Last 24 Hour Vital Signs Date Time Temp Pulse Resp B/P (MAP) Pulse Ox O2 Delivery O2 Flow Rate FiO2 01/03/20 12:00 Nasal Cannula 4.0 Nasal Cannula 4.0 01/03/20 11:50 112 01/03/20 11:22 96.4 119 21 122/50 (74) 99 01/03/20 08:00 96.8 119 18 114/84 (94) 100 01/03/20 08:00 112 01/03/20 07:52 Nasal Cannula 4.0 Nasal Cannula 4.0 01/03/20 04:00 97.0 126 22 119/78 (92) 100 01/03/20 04:00 123 01/03/20 04:00 Nasal Cannula 4.0 Nasal Cannula 4.0 01/03/20 00:00 97.4 125 24 111/77 (88) 100 01/03/20 00:00 117 01/03/20 00:00 Nasal Cannula 4.0 Nasal Cannula 4.0 01/02/20 20:00 110 01/02/20 20:00 Nasal Cannula 4.0 Nasal Cannula 4.0 01/02/20 20:00 97.5 127 24 122/62 (82) 100 01/02/20 16:00 115 01/02/20 16:00 Nasal Cannula 2.0 Nasal Cannula 5.0 01/02/20 16:00 98.2 127 20 115/64 (81) 92 Intake and Output 01/02/20 01/03/20 19:00 07:00 Intake Total 700 ml 500 ml Output Total 1000 ml 1000 ml Balance -300 ml -500 ml Intake Oral 700 ml 500 ml Output Urine Total 1000 ml 1000 ml General Appearance: no acute distress HEENT: normocephalic Respiratory: chest wall non-tender Cardiovascular: normal peripheral pulses, normal rate Abdomen: normal bowel sounds Extremities: no cyanosis Laboratory Tests 01/02/20 15:48: POC Whole Blood Glucose 63L 01/02/20 15:49: POC Whole Blood Glucose [Pending] 01/02/20 17:30: POC Whole Blood Glucose 74 01/02/20 21:59: POC Whole Blood Glucose 71L 01/02/20 22:01: POC Whole Blood Glucose 81 01/03/20 04:46: White Blood Count 10.1, Red Blood Count 2.90L, Hemoglobin 9.3L, Hematocrit 29.9L , Mean Corpuscular Volume 103H, Mean Corpuscular Hemoglobin 32.1H, Mean Corpuscular Hemoglobin Concent 31.2L, Red Cell Distribution Width 15.9H, Platelet Count 315, Mean Platelet Volume 4.5L, Neutrophils (%) (Auto) 57.9, Lymphocytes (%) (Auto) 34.3, Monocytes (%) (Auto) 5.4, Eosinophils (%) (Auto) 0.0, Basophils (%) (Auto) 2.4H 01/03/20 05:29: POC Whole Blood Glucose 57L 01/03/20 05:45: POC Whole Blood Glucose 99 01/03/20 09:50: Sodium Level 148H, Potassium Level 4.7, Chloride Level 114H, Carbon Dioxide Level 29, Anion Gap 6, Blood Urea Nitrogen 12, Creatinine 0.9, Estimat Glomerular Filtration Rate > 60, Glucose Level 100, Calcium Level 7.3L, Phosphorus Level 2.9, Magnesium Level 1.8, Total Bilirubin 0.2, Direct Bilirubin 0.1, Aspartate Amino Transf (AST/SGOT) 19, Alanine Aminotransferase ( ALT/SGPT) 17, Alkaline Phosphatase 94, Total Protein 5.3L, Albumin 1.1L 01/03/20 10:58: POC Whole Blood Glucose [Pending] 01/03/20 11:07: POC Whole Blood Glucose [Pending] 01/03/20 11:16: POC Whole Blood Glucose [Pending] 01/03/20 12:59: POC Whole Blood Glucose [Pending] Current Medications Medications (Trade) Dose Ordered Sig/Venita Route PRN Reason Start Time Stop Time Status Last Admin Dose Admin Benztropine Mesylate (Cogentin) 2 mg BID ORAL 12/27/19 18:00 01/20/20 08:59 01/03/20 08:07 Dextrose 1,000 ml @ 100 mls/hr Q10H IV 12/31/19 23:00 01/30/20 22:59 01/03/20 11:21 Dextrose (Dextrose 50%) 25 ml Q30M PRN IV Hypoglycemia 12/29/19 11:15 01/28/20 11:07 01/01/20 23:40 Dextrose (Dextrose 50%) 50 ml Q30M PRN IV hypoglycemia 12/29/19 11:15 03/28/20 11:14 12/31/19 21:10 Divalproex Sodium (Depakote Sprinkles) 250 mg Q12HR ORAL 01/01/20 09:00 01/31/20 08:59 01/03/20 08:08 Docusate Sodium (Colace) 100 mg THREE TIMES A DAY ORAL 01/01/20 09:00 01/31/20 08:59 01/03/20 12:55 Dronabinol (Marinol) 2.5 mg BID ORAL 01/03/20 18:00 04/02/20 17:59 Haloperidol (Haldol) 5 mg TID ORAL 12/27/19 13:00 02/04/20 13:59 01/03/20 12:55 Heparin Sodium (Porcine) (Heparin 5000 units/ml) 5,000 units EVERY 12 HOURS SUBQ 12/27/19 21:00 02/09/20 08:59 01/03/20 08:10 Heparin Sodium/ Sodium Chloride (Heparin 1000 units/500ml Premix) 1,000 unit ONCE PRN IV PICC PLACEMENT 01/02/20 18:30 01/03/20 23:59 Hydralazine HCl (Apresoline) 10 mg Q4H PRN IV Blood pressure over 160 systol 12/27/19 12:45 03/24/20 16:37 Lidocaine HCl (Xylocaine 1% 30ml) 30 ml ONCE PRN INJ PICC PLACEMENT 01/02/20 18:30 01/03/20 23:59 Pantoprazole (Protonix) 40 mg EVERY 12 HOURS IVP 12/27/19 21:00 01/24/20 20:59 01/03/20 08:08 Ziprasidone (Geodon) 40 mg Q12HR ORAL 12/27/19 21:00 02/04/20 20:59 01/03/20 08:08 Assessment/Plan Assessment/Plan IMPRESSION: 1. Confirmed COVID-19 pneumonia. 2. Hypernatremia. Improved 3. Psych disorder. 4. senior living resident. 5. E Coli bacteremia 6. Incarcerated hernia s/p repair DISCUSSION: Agree with current medications and care. Continue steroids. Continue medications. 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 Dc to SNF On 2L/min O2 Hector Hobson M.D. Hector Hobson MD Jan 03, 2020 14:15
--- NOTE | 2020-01-03 14:26 | Surgery Progress Note ---
Surgery Progress Note Subjective Procedure Performed 1 open incarcerated ventral hernia incisional repair 2 right rectus musculocutaneous flap 3 left rectus musculocutaneous flap 4 implantation of mesh Bard large double-sided 5 open lysis of adhesions 6 localization tissue transfer with use of skin flaps to close the abdominal wall defect Additional Comments improving much better tolerating diet no n/v/f/c okay for d/c Objective Last 24 Hour Vital Signs Date Time Temp Pulse Resp B/P (MAP) Pulse Ox O2 Delivery O2 Flow Rate FiO2 01/03/20 12:00 Nasal Cannula 4.0 Nasal Cannula 4.0 01/03/20 11:50 112 01/03/20 11:22 96.4 119 21 122/50 (74) 99 01/03/20 08:00 96.8 119 18 114/84 (94) 100 01/03/20 08:00 112 01/03/20 07:52 Nasal Cannula 4.0 Nasal Cannula 4.0 01/03/20 04:00 97.0 126 22 119/78 (92) 100 01/03/20 04:00 123 01/03/20 04:00 Nasal Cannula 4.0 Nasal Cannula 4.0 01/03/20 00:00 97.4 125 24 111/77 (88) 100 01/03/20 00:00 117 01/03/20 00:00 Nasal Cannula 4.0 Nasal Cannula 4.0 01/02/20 20:00 110 01/02/20 20:00 Nasal Cannula 4.0 Nasal Cannula 4.0 01/02/20 20:00 97.5 127 24 122/62 (82) 100 01/02/20 16:00 115 01/02/20 16:00 Nasal Cannula 2.0 Nasal Cannula 5.0 01/02/20 16:00 98.2 127 20 115/64 (81) 92 I&O Intake and Output 01/02/20 01/03/20 19:00 07:00 Intake Total 700 ml 500 ml Output Total 1000 ml 1000 ml Balance -300 ml -500 ml Intake Oral 700 ml 500 ml Output Urine Total 1000 ml 1000 ml Dressing: dry Wound: clean Cardiovascular: RSR Respiratory: clear Abdomen: soft, flat, non-tender, present bowel sounds Extremities: no edema, no tenderness, no cyanosis Laboratory Tests Test 01/02/20 15:48 01/02/20 15:49 7/16/20 17:30 01/02/20 21:59 POC Whole Blood Glucose 63 MG/DL (74-106) L Pending 74 MG/DL (74-106) 71 MG/DL (74-106) L Test 01/02/20 22:01 01/03/20 04:46 01/03/20 05:29 01/03/20 05:45 POC Whole Blood Glucose 81 MG/DL (74-106) 57 MG/DL (74-106) L 99 MG/DL (74-106) White Blood Count 10.1 K/UL (4.8-10.8) Red Blood Count 2.90 M/UL (4.20-5.40) L Hemoglobin 9.3 G/DL (12.0-16.0) L Hematocrit 29.9 % (37.0-47.0) L Mean Corpuscular Volume 103 FL (80-99) H Mean Corpuscular Hemoglobin 32.1 PG (27.0-31.0) H Mean Corpuscular Hemoglobin Concent 31.2 G/DL (32.0-36.0) L Red Cell Distribution Width 15.9 % (11.6-14.8) H Platelet Count 315 K/UL (150-450) Mean Platelet Volume 4.5 FL (6.5-10.1) L Neutrophils (%) (Auto) 57.9 % (45.0-75.0) Lymphocytes (%) (Auto) 34.3 % (20.0-45.0) Monocytes (%) (Auto) 5.4 % (1.0-10.0) Eosinophils (%) (Auto) 0.0 % (0.0-3.0) Basophils (%) (Auto) 2.4 % (0.0-2.0) H Test 01/03/20 09:50 01/03/20 10:58 01/03/20 11:07 01/03/20 11:16 Sodium Level 148 MMOL/L (136-145) H Potassium Level 4.7 MMOL/L (3.5-5.1) Chloride Level 114 MMOL/L (98-107) H Carbon Dioxide Level 29 MMOL/L (21-32) Anion Gap 6 mmol/L (5-15) Blood Urea Nitrogen 12 mg/dL (7-18) Creatinine 0.9 MG/DL (0.55-1.30) Estimat Glomerular Filtration Rate > 60 mL/min (>60) Glucose Level 100 MG/DL (74-106) Calcium Level 7.3 MG/DL (8.5-10.1) L Phosphorus Level 2.9 MG/DL (2.5-4.9) Magnesium Level 1.8 MG/DL (1.8-2.4) Total Bilirubin 0.2 MG/DL (0.2-1.0) Direct Bilirubin 0.1 MG/DL (0.0-0.3) Aspartate Amino Transf (AST/SGOT) 19 U/L (15-37) Alanine Aminotransferase (ALT/SGPT) 17 U/L (12-78) Alkaline Phosphatase 94 U/L (46-116) Total Protein 5.3 G/DL (6.4-8.2) L Albumin 1.1 G/DL (3.4-5.0) L POC Whole Blood Glucose Pending Pending Pending Test 01/03/20 12:59 POC Whole Blood Glucose Pending Plan Problems: (1) Incarcerated ventral hernia Assessment & Plan: 54-year-old female multi-medical comorbidities prior midline incision unknown prior surgery but has developed a incisional hernia that seems to be incarcerated at this time. On examination I was able to note the hernia facial grimacing by patient upon manipulation able to only partially reduce it and have ordered a stat CT scan. Case was discussed with primary care physician medical teams. Patient COVID positive abnormal labs will optimize await imaging findings and plan for potential surgical intervention. N.p.o. IV fluids IV antibiotics trend labs we will follow with recommendations thank you for let me participate in patient's care discussed with family and medical team plan for reduction and repair patient high risk, covid +, labs noted Periumbilical ventral hernia, containing a loop of what is probably proximal ileum. Mildly distended fluid-filled small bowel loops leading into this may indicate a slight degree of small bowel obstruction. However, small bowel loops are also mildly dilated distally. Evidence of prior gastric surgery, cholecystectomy and appendectomy Evidence of prior abdominal wall hernia repair Fatty liver Diffuse edema of the subcutaneous fat Small to moderate left pleural effusion. Associated compressive atelectasis at the left lung base Bronchovascular groundglass opacities in the bilateral lungs, presumably related to stated clinical history of COVID infection Right renal cyst Saha catheter. Some retained urine within the bladder despite this Old healed right rib fracture. Degenerative changes of the right hip Postop status post reduction repair. Extubated doing well recovering Labs stable Oral diet as tolerated Local wound care We will follow with recommendations thank you d/c planning c/d/i f/u outpatient for staple removal in 1 week (2) Atypical pneumonia (3) Acute febrile illness (4) Hypernatremia (5) Hypoglycemia (6) Renal failure (7) Malnutrition (8) UTI (urinary tract infection) (9) HTN (hypertension) (10) Suspected 2019-nCoV infection Aleksey Vargas Jan 03, 2020 14:26
--- NOTE | 2020-01-03 15:45 | Progress Note ---
DATE: 01/03/2020 SUBJECTIVE: This is a female patient, 54 years old, suspected COVID-19 infection, pneumonia, and hernia, but she has got altered mental status, confusion, decline in cognition below baseline, and mood lability. That is why, her attending has requested daily psychiatric consultation. She is still agitated, irritable. Mood labile. MENTAL STATUS EXAMINATION: This is a 54-year-old female patient. Appearance is disheveled. Attitude, irritable and agitated. Affect is labile. Intellect poor. Mood, depressed and anxious. Motor activity, psychomotor agitation. Attention span is poor. Orientation x2. Speech is pressured. Thought process, disorganized and illogical. Insight and judgment is poor. DIAGNOSIS: Schizoaffective, bipolar type. PLAN: on Depakote 250 twice a day, Haldol 5 two times a day as well as Geodon 40 twice a day. Twenty minutes of cognitive behavioral therapy to help her identify automatic negative thoughts, help her convert her negative thoughts to more positive thoughts to reduce depression, anxiety, mood lability. Twenty minutes of cognitive behavioral therapy provided. Chart reviewed. Discussed with staff. Seen and assessed in her room. Flip Burgos M.D. DR: CLINTON JOB#: [id number] CC:
[2020-01-03 15:49] VITALS: BP 122/85
--- NOTE | 2020-01-03 15:50 | NUR ---
NURSE NOTES: patient refused blood draw for stat blood glucose.
--- NOTE | 2020-01-03 16:25 | NUR ---
NURSE NOTES: patient was discharged to [facility]. report was given to salty of [facility]. Ghassan family member was informed of the discharge. To continue hospital meds per Dr Potter.Report and packet were given to ambulance personnel. Patient is on 3 Li NC. No belongings found. pictures were taken and uploaded. patient is stable, not in acute distress.
[2020-01-03] MEDS ORDERED: Dronabinol 2.5mg Cap ORAL SCH (18:00)
[2020-01-03] MEDS ORDERED: Dyna-Hex 2% Top Sol 2oz TOPIC SCH (20:00)
--- NOTE | 2020-01-05 21:10 | Discharge Summary ---
Discharge Summary Discharge Summary _ DATE OF ADMISSION: 12/20/2019 DATE OF DISCHARGE: 01/03/2020 DISCHARGED BY: Dr. Ricky Potter CONSULTANTS: Dr. Aleksey Ayala Merari Yang BRIEF HOSPITAL COURSE: Patient is a 54-year-old female, who was sent in from [facility] facility after increased fever and difficulty with breathing. She was noted to have increased shortness of breath and decreased oxygen saturation. She was noted to have fever of 101 degrees. Upon evaluation at ED, patient was febrile. She was on nonrebreather mask. Blood work did not show any leukocytosis however with lymphopenia. Hemoglobin 9 and hematocrit 30. Sodium was 169. Chloride 130. BUN was elevated to 22 and creatinine 1.9. CRP elevated to 18. Ferritin was 511. Chest x-ray showed patchy infiltrates worrisome for atypical pneumonia. She was pancultured. She was tested for coronavirus. She was noted to have hypoxia. Patient was hypoglycemic and was given D50 and IV Decadron. She was given IV albumin. She was started empirically on IV antibiotics. Patient was admitted for evaluation of acute febrile illness, suspected COVID infection. She was placed on isolation. She was given IV hydration. Blood pressure medications were placed on hold due to hypotension. She was started empirically on cefepime pending culture results. She was given gastric protectant. Kidney function and electrolytes were monitored. Blood glucose was monitored. No insulin was given due to episodes of hypoglycemia. Patient had thrombocytopenia and anemia. She was given IV iron. HIV and hepatitis panel were negative. Abdominal ultrasound showed diffusely increased hepatic echogenicity consistent with diffuse hepatocellular disease most likely fatty change. Upon admission, patient was noted to have a ventral incisional hernia that was incarcerated. Surgeon was consulted. Upon manipulation it was partially reduced. Patient was kept on n.p.o. CT scan showed ventral hernia bowel contents with proximal dilatation and slight degree of small bowel obstruction. COVID-19 was detected. Blood culture showed growth of E. coli. Antibiotic was changed to ceftriaxone. She was continued on dexamethasone. Patient was cleared for surgery. Echocardiogram showed EF 65%. On December 25, 2019 , patient underwent open incarcerated ventral hernia incisional repair. Postoperatively, patient was kept intubated and was transferred to ICU. Patient was placed on weaning protocol. She was eventually extubated on December. She was started on oral diet, advanced as tolerated. Urine culture showed growth of Pseudomonas. Antibiotic was changed to cefepime. Patient has an underlying history of schizoaffective disorder. She was continued on Depakote and Geodon. She was also placed on Haldol 3 times daily. She completed dexamethasone and antibiotic treatment. Blood glucose was fluctuating. She was continued on IV fluids. She was given permethrin shampoo for head lice. Patient with low po intake. She was given Ensure 3 times daily with meals. Blood glucose was stable. Patient was eventually discharged to SNF. FINAL DIAGNOSES: E. coli sepsis Acute febrile illness with COVID-19 pneumonia Incarcerated ventral hernia status post repair Acute on chronic renal failure Pseudomonas UTI Head lice status post permethrin shampoo Hypotension due to dehydration and sepsis Severe hypernatremia, likely due to free water deficit Severe hypoalbuminemia Erroneous hyperkalemia Hypoglycemia Schizoaffective disorder, bipolar type Thrombocytopenia Anemia of iron deficiency Coagulopathy likely due to COVID 19 and vitamin K depletion Procedure: 1 open incarcerated ventral hernia incisional repair 2 right rectus musculocutaneous flap 3 left rectus musculocutaneous flap 4 implantation of mesh Bard large double-sided 5 open lysis of adhesions 6 localization tissue transfer with use of skin flaps to close the abdominal wall defect DISPOSITION: Patient was unable to return to prior facility. Patient was discharged to [facility]. DISCHARGE MEDICATIONS: Refer to Discharge Medication List. I have been assigned to complete a discharge summary on this account, I was not involved with the patient's management.--CECILIA Gaines Jacqueline Robles NP Jan 05, 2020 21:10
== END 2020-01-03 16:25 | DRG 853 ==
LOC: EDBD 17:47 → EMR 18:14 → 2W 19:25 → EDBEDREQSVC 20:21 → EDBEDREQ 21:01 → 2W 22:27 → ICU 12-25 15:28 → 2W 12-27 12:44
PROC: 0WUF0JZ Supplement Abdominal Wall with Synthetic Substitute, Open Approach (ICD-10-PCS; principal; 2019-12-25 13:00)
PROC: 0KXK0Z6 Transfer Right Abdomen Muscle, Transverse Rectus Abdominis Myocutaneous Flap, Open Approach (ICD-10-PCS; principal; 2019-12-25 13:00)
PROC: 0KXL0Z6 Transfer Left Abdomen Muscle, Transverse Rectus Abdominis Myocutaneous Flap, Open Approach (ICD-10-PCS; principal; 2019-12-25 13:00)
PROC: 0DNW0ZZ Release Peritoneum, Open Approach (ICD-10-PCS; principal; 2019-12-25 13:00)
DX: A41.51 Sepsis due to Escherichia coli [E. coli] (principal); U07.1 COVID-19; E43 Unspecified severe protein-calorie malnutrition; J12.89 Other viral pneumonia; J96.90 Respiratory failure, unspecified, unspecified whether with hypoxia or hypercapnia; N17.9 Acute kidney failure, unspecified; N39.0 Urinary tract infection, site not specified; E87.0 Hyperosmolality and hypernatremia; F20.0 Paranoid schizophrenia; K43.0 Incisional hernia with obstruction, without gangrene; F31.81 Bipolar II disorder; D68.9 Coagulation defect, unspecified; I12.9 Hypertensive chronic kidney disease with stage 1 through stage 4 chronic kidney disease, or unspecified chronic kidney disease; E16.2 Hypoglycemia, unspecified; I25.10 Atherosclerotic heart disease of native coronary artery without angina pectoris; E86.0 Dehydration; K66.0 Peritoneal adhesions (postprocedural) (postinfection); N18.9 Chronic kidney disease, unspecified; B96.5 Pseudomonas (aeruginosa) (mallei) (pseudomallei) as the cause of diseases classified elsewhere; I25.2 Old myocardial infarction; D50.9 Iron deficiency anemia, unspecified; R33.9 Retention of urine, unspecified; I95.9 Hypotension, unspecified; D69.6 Thrombocytopenia, unspecified
CPT/HCPCS: 36415; 36600; 71045; 74018; 74176; 76705; 80048; 80053; 80061; 80076; 80164; 81003; 82150; 82533; 82550; 82553; 82607; 82728; 82746; 82803; 82947; 82962; 82977; 83036; 83525; 83540; 83550; 83605; 83615; 83690; 83735; 83880; 84100; 84132; 84300; 84443; 84484; 84550; 85007; 85025; 85610; 85651; 85730; 86140; 86703; 86705; 86709; 86803; 86850; 86900; 86901; 86920; 86927; 87040; 87081; 87086; 87181; 87340; 93005; 93306; 94002; 94003; 94150; 94664; 96361; 96365; 96367; 96375; 97803; 99291; J2370; J2405; J7030